=== PATIENT | female | born 1955 | race Caucasian/White ===

== ENCOUNTER 2017-09-26 10:37 | Inpatient (IN) | payer MEDICARE ==
[2017-09-26] MEDS ORDERED: Azithromycin IV(*) 500 MG in NS 0.9% 250 ML* 250 ML IVPB ONE (11:44)
[2017-09-26] MEDS ORDERED: cefTRIAXone(*) 1 GM in NS 0.9% 50 ML* 50 ML IVPB ONE (11:44)
[2017-09-26] MEDS ORDERED: NS 0.9% 1000 ML* 1,000 ML IV ONE (11:44)
[2017-09-26] MEDS ORDERED: Albuterol/Ipratropium NEB.SOL* Albuterol 2.5 MG/Ipratropium 0.5 MG 3 ML INH ONE (11:45)
[2017-09-26 12:03] LABS: Hematocrit 38 % (35-47); Hemoglobin 12.3 g/dl (12.0-16.0); Mean Corpuscular HGB Conc 32 g/dl (31-36); Mean Corpuscular Hemoglobin 29 pg (27-31); Mean Corpuscular Volume 90 fL (80-97); Mean Platelet Volume 8 um3 (7.4-10.4); Red Blood Count 4.27 10^6/ul (4.0-5.4); Red Cell Distribution Width 13 % (10.5-15); White Blood Count 8.8 10^3/ul (3.5-10.8)
[2017-09-26 12:09] LABS: Albumin 4.6 g/dL (3.2-5.2); BUN/Creatinine Ratio 21.1 (8-20); Calcium 9.6 mg/dL (8.6-10.3); EGFR African American 81.1 (>60); Globulin 3.4 g/dL (2-4); Magnesium 2.2 mg/dL (1.9-2.7); Potassium 3.8 mmol/L (3.5-5.0); Total Bilirubin 0.4 mg/dL (0.2-1.0)
[2017-09-26 12:10] LABS: Troponin I 0.01 ng/mL (<0.04)
--- NOTE | 2017-09-26 12:21 | RAD ---
INDICATION: Soreness of breath COPD exacerbation. COMPARISON: Comparison is made with a prior study from May 13, 2015. TECHNIQUE: Dual-energy PA and lateral views of the chest were obtained. FINDINGS: The heart is within normal limits in size. Mediastinal and hilar contours appear within normal limits. The lungs are hyperinflated and clear with flattening of the diaphragms. No pleural effusion is seen. IMPRESSION: FINDINGS SUGGESTIVE OF COPD, NO EVIDENCE FOR ACUTE FINDING.
[2017-09-26 13:00] LABS: TSH (Thyroid Stimulating Horm) 1.6 mcIU/mL (0.34-5.60)
--- NOTE | 2017-09-26 14:06 | ED ---
Kayla Slade Nilda, scribed for Helena Duncan MD on 09/26/17 at 1136 . Dizziness - HPI Summary HPI Summary: This patient is a 62 year old F presenting to [facility] accompanied by family with a chief complaint of sudden onset, constat dizziness (room spinning) that began earlier today. Pt reports lightheadedness yesterday. Symptoms aggravated by position change (lying down to sitting up) and alleviated by nothing. Patient reports cough, SOB, and frontal headache. Patient denies dysuria, fever, head trauma, unilateral weakness, and slurred speech. Per daughter, pt has similar symptoms when she has some sort of infection. Four years ago, pt had a kidney infection and presented with dizziness. When she was given amoxicillin all dizziness symptoms resolved. Pt states she is on home O2. PMHx includes COPD and vascular disease (stents in abd). - History Of Current Complaint Chief Complaint: EDDizziness Stated Complaint: DIZZY Time Seen by Provider: 09/26/17 11:00 Hx Obtained From: Patient, Family/Lead Military Analyst - daughter Onset/Duration: Still Present, Suddenly Timing: Constant Severity Currently: Moderate Character: Dizzy Aggravating Factor(s): Position Change, Supine To Erect Alleviating Factor(s): Nothing Associated Signs And Symptoms: Positive: Other: - cough, SOB, and frontal headache. Patient denies dysuria, fever, head trauma, unilateral weakness, and slurred speech - Allergies/Home Medications Allergies/Adverse Reactions: Allergies Allergy/AdvReac Type Severity Reaction Status Date / Time No Known Allergies Allergy Verified 09/06/17 08:45 Home Medications: Home Medications Rosuvastatin (NF) [Crestor (NF)] 10 mg PO DAILY 09/26/17 [History Confirmed ] PMH/Surg Hx/FS Hx/Imm Hx Endocrine/Hematology History: Reports: Hx Anticoagulant Therapy - HX OF DVT Denies: Hx Diabetes Cardiovascular History: Reports: Hx Hypertension, Other Cardiovascular Problems/ Disorders - heart murmur Denies: Hx Pacemaker/ICD Respiratory History: Reports: Hx Asthma, Hx Chronic Obstructive Pulmonary Disease (COPD), Other Respiratory Problems/Disorders - COLLAPSED LUNG 30 YRS AGO GI History: Reports: Other GI Disorders - bowel necrosis and surgery History: Reports: Other Problems/Disorders - recent UTI Musculoskeletal History: Reports: Other Musculoskeletal History - arthritis, degenerative disk in neck Sensory History: Reports: Hx Contacts or Glasses Denies: Hx Hearing Aid Opthamlomology History: Reports: Hx Contacts or Glasses Neurological History: Reports: Other Neuro Impairments/Disorders - tingling down left arm from arthritis Psychiatric History: Reports: Hx Anxiety, Hx Depression Denies: Hx Panic Disorder - Surgical History Surgery Procedure, Year, and Place: LT LEG SURGERY 2006, [place], recent bowel resection December 2013, - Immunization History Date of Tetanus Vaccine: Unkown Infectious Disease History: No Infectious Disease History: Denies: Traveled Outside the [place] in Last 30 Days - Family History Known Family History: Negative: Hypertension, Diabetes - Social History Alcohol Use: None Substance Use Type: Reports: None Substance Use Comment - Amount & Last Used: marijuana 2 days ago Smoking Status (MU): Former Smoker Type: Cigarettes Amount Used/How Often: 2 ppd Length of Time of Smoking/Using Tobacco: 40 Have You Smoked in the Last Year: No Review of Systems Negative: Fever Positive: Shortness Of Breath, Cough Negative: dysuria Neurological: Other - dizziness (room spinning and lightheaded); negative head trauma Positive: Headache - frontal. Negative: Weakness, Slurred Speech All Other Systems Reviewed And Are Negative: Yes Physical Exam - Summary Physical Exam Summary: General: Well appearing, no pain distress Skin: Warm, Skin Color Reflects Adequate Perfusion, Dry Eyes: EOMI, LYDIA ENT: Pharynx normal, TMs normal Neck: Supple, nontender Respiratory: CTA, breath sounds present, no rhonchi, no wheezes, no rales Cardiovascular: RRR, no murmur, no rub, no gallop Abdomen: Soft, nontender, Non-distended, no guarding, no rebound Bowel: Present Musculoskeletal: ABI, No edema Neuro: Sensory/motor intact, A&Ox3, CN intact 2-12 Psych: Affect/mood appropriate NIH: negative Triage Information Reviewed: Yes Vital Signs On Initial Exam: Initial Vitals Temp Pulse Resp BP Pulse Ox 97.6 F 74 18 129/98 97 09/26/17 10:40 09/26/17 10:40 09/26/17 10:40 09/26/17 10:40 09/26/17 10:40 Vital Signs Reviewed: Yes - [place] Coma Scale Coma Scale Total: 15 Diagnostics - Vital Signs Vital Signs Temp Pulse Resp BP Pulse Ox 09/26/17 10:40 97.6 F 74 18 129/98 97 - Laboratory Lab Results: Lab Results 09/26/17 09/26/17 Range/Units 11:36 11:36 WBC 8.8 (3.5-10.8) 10^3/ul RBC 4.27 (4.0-5.4) 10^6/ul Hgb 12.3 (12.0-16.0) g/dl Hct 38 (35-47) % MCV 90 (80-97) fL MCH 29 (27-31) pg MCHC 32 (31-36) g/dl RDW 13 (10.5-15) % Plt Count 235 (150-450) 10^3/ul MPV 8 (7.4-10.4) um3 Neut % (Auto) 66.6 (38-83) % Lymph % (Auto) 21.8 L (25-47) % [place] % (Auto) 8.3 (1-9) % Eos % (Auto) 2.5 (0-6) % Baso % (Auto) 0.8 (0-2) % Absolute Neuts (auto) 5.8 (1.5-7.7) 10^3/ul Absolute Lymphs (auto) 1.9 (1.0-4.8) 10^3/ul Absolute Monos (auto) 0.7 (0-0.8) 10^3/ul Absolute Eos (auto) 0.2 (0-0.6) 10^3/ul Absolute Basos (auto) 0.1 (0-0.2) 10^3/ul Absolute Nucleated RBC 0 10^3/ul Nucleated RBC % 0 Sodium 135 (133-145) mmol/L Potassium 3.8 (3.5-5.0) mmol/L Chloride 98 L (101-111) mmol/L Carbon Dioxide 32 (22-32) mmol/L Anion Gap 5 (2-11) mmol/L BUN 19 (6-24) mg/dL Creatinine 0.90 (0.51-0.95) mg/dL Est GFR ( Amer) 81.1 (>60) Est GFR (Non-Af Amer) 63.0 (>60) BUN/Creatinine Ratio 21.1 H (8-20) Glucose 89 (70-100) mg/dL Calcium 9.6 (8.6-10.3) mg/dL Magnesium 2.2 (1.9-2.7) mg/dL Total Bilirubin 0.40 (0.2-1.0) mg/dL AST 19 (13-39) U/L ALT 15 (7-52) U/L Alkaline Phosphatase 51 (34-104) U/L Troponin I 0.01 (<0.04) ng/mL Total Protein 8.0 (6.4-8.9) g/dL Albumin 4.6 (3.2-5.2) g/dL Globulin 3.4 (2-4) g/dL Albumin/Globulin Ratio 1.4 (1-3) TSH 1.60 (0.34-5.60) mcIU/mL Result Diagrams: 09/26/17 11:36 09/26/17 11:36 Lab Statement: Any lab studies that have been ordered have been reviewed, and results considered in the medical decision making process. - Radiology CXR Radiology Interpretation Completed By: Radiologist - CXR, per radiologist, reveals findings suggestive of COPD. No evidence for acute finding. ED physician has reviewed this radiology report and agrees. - EKG 1124 Cardiac Rate: NL EKG Rhythm: Sinus Rhythm - [address] Segment: Normal Ectopy: None EKG Interpretation: no STEMI, no acute changes. Re-Evaluation - Re-Evaluation First Eval Re-Evaluation Time: 13:42 Comment: Reviewed labs and plan for admission. Pt agreeable with this plan. Dizzy Course/Dx - Course Assessment/Plan: An EKG reveals NSR, 72 bpm, normal ST, no ectopy, no STEMI, no acute changes. CXR, per radiologist, reveals findings suggestive of COPD. No evidence for acute finding. ED physician has reviewed this radiology report and agrees. Pending CT Brain. [1350] Dr Rajput (hospitalist) accepts pt as admit. Given pts peripheral vascular disease history and no clear cut signs of infection as a cause for her vertigo case was discussed with hospitalist for obv - Diagnoses Provider Diagnoses: Vertigo - Provider Notifications Discussed Care Of Patient With: Fredy Rajput - Hospitalist Time Discussed With Above Provider: 13:50 Instructed by Provider To: Admit As Inpatient Discharge - Discharge Plan Condition: Stable Disposition: ADMITTED TO [facility] Referrals: Miguel Parmar MD [Primary Care Provider] - The documentation as recorded by the Kayla mcduffie Nilda accurately reflects the service I personally performed and the decisions made by me, Helena Duncan MD.
[2017-09-26 14:10] LABS: Budding Yeast Present (Absent); Urine Bacteria Absent (Absent); Urine Bilirubin Negative (Negative); Urine Glucose Negative (Negative); Urine Nitrite Negative (Negative)
--- NOTE | 2017-09-26 15:32 | RAD ---
INDICATION: Headache and vertigo. COMPARISON: Comparison is made with a prior CT of the brain from February 15, 2015. TECHNIQUE: Contiguous axial sections of the brain were obtained from the skull base to the vertex without contrast. FINDINGS: The ventricles, cisterns and sulci are within normal limits. No significant focal abnormality or mass effect is seen. There is no evidence for hemorrhage. No significant focal osseous abnormality is seen. The visualized portion of the paranasal sinuses and mastoid air cells appear clear. IMPRESSION: NO EVIDENCE FOR GROSS ACUTE INFARCT, MASS EFFECT OR HEMORRHAGE.
[2017-09-26] MEDS ORDERED: Albuterol HFA INHALER* 8 gm MDI INH PRN (15:41)
[2017-09-26] MEDS ORDERED: ALPRAZolam TAB* 0.25 MG PO PRN (15:41)
[2017-09-26] MEDS: Cyclobenzaprine TAB* 10 MG PO PRN ×2 (16:57→21:34)
[2017-09-26] MEDS: Gabapentin CAP(*) 100 MG PO SCH ×2 (16:57→21:35)
[2017-09-26] MEDS: oxyCODONE/Acetamin 5/325 MG* TAB PO PRN (16:57)
[2017-09-26] MEDS: PTO: Budesonide/Formote 80/4.5(NF) MDI INH SCH (20:03)
--- NOTE | 2017-09-26 20:28 | HP ---
HISTORY AND PHYSICAL: DATE OF ADMISSION: 09/26/17 ADMITTING PHYSICIAN: Fredy Rajput MD PRIMARY CARE PHYSICIAN: Dr. Parmar. CHIEF COMPLAINT: Vertigo, acute onset. HISTORY OF PRESENT ILLNESS: Linda Jiménez is a 62-year-old female with PMH as above who was sitting on her couch on the morning of admission when all of a sudden the room began to spin. She got very scared, did not feel safe standing up to see if she could ambulate. She has a history of vertiginous sensations, which have always been possible infections and has been usually resolved after getting a dose of amoxicillin; however, it has been a number of months since the last time this happened. She denies having any fevers. Did have some chills and then had some drenching sweats. She does deny any dysuria. She wears pads for urinary incontinence. She denies any cough or shortness of breath. The patient called her daughter to present to the emergency room. The patient still gets vertigo sensations on the car ride here, especially when stopping and starting in the car. The patient in the ED had a CT head, which was negative and a UA suspicious for possible infection, was started on ceftriaxone. She was afebrile, hemodynamically stable. She is being admitted for vertigo, rule out CVA. Performed Miami-Hallpike maneuver. Limited exam as the patient is very anxious with reclination. No nystagmus noted with head looking to the right side, but the patient is very anxious and appearing uncomfortable and nauseous, though did not vomit. Test was not repeated looking to the left. PAST MEDICAL HISTORY: 1. Hypertension. 2. COPD. 3. Peripheral vascular disease. 4. Chronic neck pain secondary to osteoarthritis. PAST SURGICAL HISTORY: Surgeries include for her peripheral vascular disease. Follows with Dr. Sibley of [facility]. MEDICATIONS: Include: 1. Aspirin 325 mg q.a.m. 2. Clopidogrel 75 mg q.a.m. 3. Flexeril 10 mg t.i.d. 4. Gabapentin 400 mg t.i.d. 5. Levothyroxine 50 mcg q.a.m. 6. Lisinopril 10 mg q.a.m. 7. Montelukast 10 mg q.h.s. 8. Oxycodone 5/325 tabs t.i.d. 9. Crestor 10 mg q.h.s. 10. Sertraline 200 mg q.h.s. 11. Spiriva 2 puffs q.a.m. 12. Symbicort 160/4.5 two puffs b.i.d. as needed. 13. Guaifenesin as needed. 14. Amoxicillin as needed. 15. Xanax 0.25 mg. ALLERGIES: No known drug allergies. FAMILY HISTORY: Noncontributory. SOCIAL HISTORY: Healthcare proxy is daughter, Yaima Jiménez, who is present at bedside. The patient smoked for 45 years, 2 to 3 packs a day, quit several years ago, not a current drinker. REVIEW OF SYSTEMS: Complete 14-point review of systems is negative except as per HPI. PHYSICAL EXAMINATION GENERAL: The patient is in no acute distress, sitting in the hospital bed. VITAL SIGNS: Blood pressure 125/67, satting 94% on room air, heart rate 75, temperature 97.6. HEENT: Normocephalic, atraumatic. Pupils equal, round, and reactive to light. Extraocular muscles are intact. NECK: Supple. No cervical lymphadenopathy. PULMONARY: Some slightly expiratory wheezing. No rhonchi or rales. CARDIOVASCULAR: Regular rate and rhythm. No murmurs, rubs, or gallops. ABDOMEN: Soft, nontender, nondistended. No guarding. No rebound. EXTREMITIES: Warm, well perfused. No peripheral edema. NEUROLOGIC: Cranial nerves II through XII grossly intact. Some dyssymmetry bilaterally with [id number]. [id number]-[id number] testing rather low but smooth. Rapid arm motions intact bilaterally. [place]-Hallpike test equivocal, no nystagmus seen, somewhat limited as the patient is very anxious and not able to be performed on the other side. Medical Asst strength intact. Sensation intact. Hip flexion intact. LABORATORY DATA: White count 8.8, hemoglobin 12.3, hematocrit 38, platelets 235,000. Sodium 135, potassium 3.8, chloride 98, carbon dioxide 32, BUN 19, creatinine 0.90, glucose 89, magnesium 2.2. Troponin 0.01. TSH 1.6. Urinalysis; 3+ leukocyte esterase, 3+ wbc's, 1+ rbc's, present yeast. IMAGING: Chest x-ray; no acute pulmonary process, but findings suggestive of COPD with hyperinflation, flattening of the diaphragms. CT of the brain; no evidence of gross acute infarct, mass effect, or hemorrhage. 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 The patient is afebrile with no leukocytosis. Does have a UA suspicious for urinary tract infection. We will continue ceftriaxone. She had a CT head, no evidence of cerebrovascular accident. Continue neuro checks every 6 hours. Consider brain MRI to rule out posterior circulation stroke given her vasculopathy. We will continue her aspirin, Plavix daily, control her blood pressure with home meds. For chronic obstructive pulmonary disease, continue inhalers. No signs of chronic obstructive pulmonary disease exacerbation, satting well on room air. For hypertension, continue her lisinopril 10 mg daily. We will check orthostatic vital signs. She can eat a heart healthy diet. She is being admitted to observation for vertigo. Medical proxy is daughter, Yaima Jiménez. [id number]/CPS #: [id number] [facility] HOSPITALIfeanyi
[2017-09-26] MEDS: ROSUVASTATIN 10 MG PO SCH (21:33)
[2017-09-26] MEDS: Sertraline* 100 MG TAB PO SCH (21:34)
[2017-09-27] MEDS: oxyCODONE/Acetamin 5/325 MG* TAB PO PRN ×3 (02:18→14:23)
[2017-09-27] MEDS: Levothyroxine TAB* 50 MCG TAB PO SCH (05:45)
[2017-09-27] MEDS: PTO: Budesonide/Formote 80/4.5(NF) MDI INH SCH ×2 (08:43→19:20)
[2017-09-27] MEDS: Tiotropium CAP.INH* CAP.INH/18 MCG (USE ORDER SET !) INH SCH (08:44)
[2017-09-27] MEDS: Montelukast Sodium TAB* 10 MG PO SCH (08:45)
[2017-09-27] MEDS: Aspirin EC TAB* 325 MG PO SCH (08:45)
[2017-09-27] MEDS: Clopidogrel TAB* 75 MG PO SCH (08:45)
[2017-09-27] MEDS: Gabapentin CAP(*) 100 MG PO SCH ×4 (08:45→20:55)
[2017-09-27] MEDS: Cyclobenzaprine TAB* 10 MG PO PRN ×2 (08:45→14:23)
[2017-09-27] MEDS: Lisinopril TAB* 10 MG PO SCH (08:45)
[2017-09-27] MEDS ORDERED: Spiriva Inhaler DEVICE* 1 EACH DEVICE INH ONE (09:00)
[2017-09-27] MEDS: cefTRIAXone VIAL(*) 1,000 MG in D5W 50 ML BAG* 50 ML IVPB SCH (13:27)
--- NOTE | 2017-09-27 14:48 | RAD ---
Indication: Stroke. Image sequences: Sagittal and axial T1, axial T2, FLAIR, diffusion and susceptibility weighted images of the brain were obtained. Motion artifact degrades the images. Ventricular structures are midline. No midline shift is noted. The extra-axial spaces are unremarkable. There is no evidence of intracranial mass or hemorrhage. No restriction of diffusion is noted. The left maxillary sinus is opacified. The right maxillary sinus is unremarkable. Mastoid air cells are grossly unremarkable. IMPRESSION: Opacified left maxillary sinus. Limited images of the brain demonstrates no acute changes with no restriction of diffusion.
--- NOTE | 2017-09-27 15:33 | PN ---
Subjective Date of Service: 09/27/17 Interval History: MRI Brain today with no e/o CVA. Walked with PT, did not feel safe to attempt stairs. Dizziness overall improving. Still with turning head quickly. Cough has gotten bit worse, trying but unable to bring anything up. Objective Active Medications: Albuterol (Ventolin Hfa Inhaler*) 2 puff INH Q4H PRN PRN Reason: SHORTNESS OF BREATH Alprazolam (Xanax Tab*) 0.25 mg PO Q6H PRN PRN Reason: ANXIETY Aspirin (Ecotrin Ec Tab*) 325 mg PO DAILY [facility] Last Admin: 09/27/17 08:45 Dose: 325 mg Budesonide/Formoterol Fumarate (Symbicort 80/4.5 (Nf)) 2 aer INH BID [facility] Last Admin: 09/27/17 08:43 Dose: 2 puff Clopidogrel Bisulfate (Plavix Tab*) 75 mg PO DAILY [facility] Last Admin: 09/27/17 08:45 Dose: 75 mg Cyclobenzaprine HCl (Flexeril Tab*) 10 mg PO TID PRN PRN Reason: SPASMS Last Admin: 09/27/17 14:23 Dose: 10 mg Gabapentin (Neurontin Cap(*)) 400 mg PO QID [facility] Last Admin: 09/27/17 13:26 Dose: 400 mg Ceftriaxone Sodium 1,000 mg/ (Dextrose) 50 mls @ 200 mls/hr IVPB Q24H [facility] Last Admin: 09/27/17 13:27 Dose: 200 mls/hr Levothyroxine Sodium (Synthroid Tab*) 50 mcg PO DAILY@0600 [facility] Last Admin: 09/27/17 05:45 Dose: 50 mcg Lisinopril (Prinivil Tab*) 10 mg PO DAILY [facility] Last Admin: 09/27/17 08:45 Dose: 10 mg Montelukast Sodium (Singulair Tab*) 10 mg PO DAILY [facility] Last Admin: 09/27/17 08:45 Dose: 10 mg Oxycodone/Acetaminophen (Percocet 5/325 Tab*) 1 tab PO TID PRN PRN Reason: PAIN Last Admin: 09/27/17 14:23 Dose: 1 tab Rosuvastatin Calcium (Crestor (Nf)) 10 mg PO BEDTIME [facility] PRN Reason: Protocol Last Admin: 09/26/17 21:33 Dose: 10 mg Sertraline HCl (Zoloft*) 200 mg PO BEDTIME [facility] Last Admin: 09/26/17 21:34 Dose: 200 mg Tiotropium [place] (Spiriva Cap.Inh*) 1 cap INH DAILY [facility] Last Admin: 09/27/17 08:44 Dose: 1 cap Vital Signs 09/26/17 09/26/17 09/26/17 15:59 16:00 16:42 Temperature 98.0 F Pulse Rate 76 77 Respiratory 20 20 Rate Blood Pressure 135/72 (mmHg) O2 Sat by Pulse 94 96 Oximetry 09/26/17 09/26/17 09/26/17 16:51 16:57 17:04 Temperature 98.0 F Pulse Rate 77 Respiratory 20 18 20 Rate Blood Pressure 135/72 (mmHg) O2 Sat by Pulse 96 Oximetry 09/26/17 09/26/17 09/26/17 18:36 19:45 20:00 Temperature 98.2 F Pulse Rate 84 84 Respiratory 18 16 16 Rate Blood Pressure 101/64 (mmHg) O2 Sat by Pulse 90 97 Oximetry 09/26/17 09/26/17 09/26/17 20:16 20:46 21:34 Temperature Pulse Rate 71 Respiratory 16 16 Rate Blood Pressure 100/46 (mmHg) O2 Sat by Pulse Oximetry 09/26/17 09/26/17 09/26/17 21:35 23:23 23:48 Temperature 97.5 F Pulse Rate 82 Respiratory 16 16 16 Rate Blood Pressure 115/63 (mmHg) O2 Sat by Pulse 94 Oximetry 09/27/17 09/27/17 09/27/17 02:18 03:59 05:49 Temperature 97.6 F Pulse Rate 76 Respiratory 18 18 16 Rate Blood Pressure 152/77 (mmHg) O2 Sat by Pulse 97 Oximetry 09/27/17 09/27/17 09/27/17 07:27 07:56 08:00 Temperature 98.1 F Pulse Rate 68 Respiratory 16 16 20 Rate Blood Pressure 107/68 (mmHg) O2 Sat by Pulse 96 Oximetry 09/27/17 09/27/17 09/27/17 08:45 08:46 10:49 Temperature Pulse Rate Respiratory 18 18 18 Rate Blood Pressure (mmHg) O2 Sat by Pulse Oximetry 09/27/17 09/27/17 09/27/17 10:50 11:15 13:26 Temperature 98.2 F Pulse Rate 86 Respiratory 18 16 18 Rate Blood Pressure 108/86 (mmHg) O2 Sat by Pulse 94 Oximetry 09/27/17 09/27/17 14:23 15:00 Temperature 97.7 F Pulse Rate 76 Respiratory 20 18 Rate Blood Pressure 142/75 (mmHg) O2 Sat by Pulse 94 Oximetry Oxygen Devices in Use Now: Nasal Cannula Appearance: NAD. Coughing on re-eval. Occasionally anxious. Eyes: No Scleral Icterus, PERRLA Ears/Nose/Mouth/Throat: NL Teeth, Lips, Gums, Mucous Membranes Moist Neck: NL Appearance and Movements; NL JVP Respiratory: - - no rales or wheezing. Cardiovascular: NL Sounds; No Murmurs; No JVD, RRR Abdominal: NL Sounds; No Tenderness; No Distention Extremities: No Edema, No Clubbing, Cyanosis Skin: No Rash or Ulcers Neurological: Alert and Oriented x 3, NL Sensation, NL Muscle Strength and Tone , - - anxious. Ch[place] Hallpike w/o nystagmus, head thrust negative. Result Diagrams: 09/26/17 11:36 09/26/17 11:36 Additional Lab and Data: Microbiology and Other Data: Microbiology 09/26/17 12:52 Urine Urine Culture - Preliminary Escherichia Coli Assess/Plan/Problems-Billing Assessment: 62 yo female PMH COPD, PVD (SMA) p/w acute vertigo. CTH and MRI brain w/o e/o stroke. Justyn Hallpike and head thrust negative. Vertigo overall improving though not yet safe for home per PT. CFTX for Ecoli UTI and potential COPD exacerbation (increased cough). - Patient Problems (1) Vertigo Current Visit: Yes Status: Acute Code(s): R42 - DIZZINESS AND GIDDINESS SNOMED Code(s): 046055940 Comment: Brain MRI and CTH negative for CVA Justyn Hallpike and head thrust negative. overall improving. still somewhat positional continue PT daily, placement if needed. lexus yadav trial (2) UTI (urinary tract infection) Current Visit: Yes Status: Acute Comment: Ecoli, f/u sensitivities. UA 3+ LE 3+ WBC Ceftriaxone empirically for now. (3) Hx of peripheral vascular disease Current Visit: No Status: Chronic Priority: Medium Code(s): Z86.79 - PERSONAL HISTORY OF OTHER DISEASES OF THE CIRCULATORY SYSTEM SNOMED Code(s): 960962924 Comment: continue aspirin, plavix (4) History of COPD Current Visit: No Status: Chronic Priority: Medium Code(s): Z87.09 - PERSONAL HISTORY OF OTHER DISEASES OF THE RESPIRATORY SYSTEM SNOMED Code(s): 625974763 Comment: continue symbicort, duonebs q4h prn, singular, singular not currently bronchospastic but with increased cough. Difficulty with expectorating. Mucinex added. (5) History of chronic pain Current Visit: No Status: Chronic Priority: Medium Code(s): Z87.898 - PERSONAL HISTORY OF OTHER SPECIFIED CONDITIONS SNOMED Code(s): 218201197 Comment: continue home gabapentin 400mg TID, flexeril 10mg TID, percoset 1 tab TID prn cervical pain (6) History of depression Current Visit: No Status: Chronic Priority: Medium Code(s): Z86.59 - PERSONAL HISTORY OF OTHER MENTAL AND BEHAVIORAL DISORDERS SNOMED Code(s): 764854514 Comment: continue home zoloft 200mg qhs (7) History of hypertension Current Visit: No Status: Chronic Priority: Medium Code(s): Z86.79 - PERSONAL HISTORY OF OTHER DISEASES OF THE CIRCULATORY SYSTEM SNOMED Code(s): 561419421 Comment: continue home lisinopril 10mg daily. (8) Hx of degenerative disc disease Current Visit: No Status: Chronic Priority: Medium Code(s): Z87.39 - PERSONAL HISTORY OF DISEASES OF THE MS SYS AND CONN TISS SNOMED Code(s): 740664110 Comment: pain meds as above. Status and Disposition: medicine, changed to inpatient as PT did not feel safe for her home environment yet. Attending: Fredy Rajput
[2017-09-27] MEDS: ROSUVASTATIN 10 MG PO SCH (20:54)
[2017-09-27] MEDS: Sertraline* 100 MG TAB PO SCH (20:54)
[2017-09-27] MEDS: guaiFENesin ER TAB 600 MG PO SCH (20:56)
[2017-09-28] MEDS: Levothyroxine TAB* 50 MCG TAB PO SCH (05:55)
[2017-09-28] MEDS: Gabapentin CAP(*) 100 MG PO SCH ×2 (08:53→13:48)
[2017-09-28] MEDS: guaiFENesin ER TAB 600 MG PO SCH (08:53)
[2017-09-28] MEDS: Aspirin EC TAB* 325 MG PO SCH (08:54)
[2017-09-28] MEDS: Lisinopril TAB* 10 MG PO SCH (08:54)
[2017-09-28] MEDS: Montelukast Sodium TAB* 10 MG PO SCH (08:54)
[2017-09-28] MEDS: Clopidogrel TAB* 75 MG PO SCH (09:01)
[2017-09-28 11:47] VITALS: BP 138/107
[2017-09-28] MEDS: PTO: Budesonide/Formote 80/4.5(NF) MDI INH SCH (13:22)
[2017-09-28] MEDS: Tiotropium CAP.INH* CAP.INH/18 MCG (USE ORDER SET !) INH SCH (13:23)
[2017-09-28] MEDS: cefTRIAXone VIAL(*) 1,000 MG in D5W 50 ML BAG* 50 ML IVPB SCH (13:48)
[2017-09-28] MEDS ORDERED: Meclizine TAB* 12.5 MG PO SCH (14:00)
--- NOTE | 2017-09-29 07:07 | DS ---
DISCHARGE SUMMARY: DATE OF ADMISSION: 09/26/17 DATE OF DISCHARGE: 09/28/17 ADMITTING PROVIDER: Fredy Rajput MD ATTENDING PHYSICIAN: Fredy Rajput MD PRIMARY CARE PHYSICIAN: Dr. Miguel Parmar. CHIEF COMPLAINT: Vertigo. PRINCIPAL DIAGNOSIS: Urinary tract infection. PAST MEDICAL HISTORY: Hypertension, COPD, peripheral vascular disease, chronic neck pain secondary to osteoarthritis, cervical disk disease. HISTORY OF PRESENT ILLNESS AND HOSPITAL COURSE: Linda Jiménez is a 62-year-old female with PMH as above, who was sitting on couch on the morning of admission when suddenly the room started to spin. She got very scared, did not feel safe standing up. She does have an episode the day prior that was very brief and then passed; however, she called her daughter and presented to the emergency room. She does have a history of these vertiginous sensations whenever she has a urinary tract infection, usually takes a dose of amoxicillin and improves. She did have some chills and drenching sweats at home. Denies any dysuria. She wears pads for urinary incontinence at baseline. Denies shortness of breath or cough. In the emergency room, she had a CT of the head, which was negative and the UA was suspicious for UTI, started her on ceftriaxone. She was afebrile without any leukocytosis. Justyn-Hallpike testing was equivalent in the ED and negative again on retesting on hospital day #2 as initially the patient was very anxious. She has physical therapy ordered, worked with her on hospital day #2 and even though vertigo had somewhat improved, she was taking short steps with some anxiety and had some sensations of shortness of breath and pressure in her head and stairs were not attempted, did not feel safer at home, where she lives on the second floor requiring 2 flight of stairs at the landing. The patient had a brain MRI given her vasculopathy on hospital day#2, which was negative for any signs of ischemia. Urine culture eventually resulted in E. coli, sensitive to ceftriaxone, Cipro, and Bactrim. She will be discharged home on cefdinir for completion of her course of antibiotics. This provider walked the patient on hospital day #3, the patient initially felt again head pressure, was anxious upon retesting with nurse and then again with her provider. The patient was able to ambulate on the unit including up and down a flight of stairs without sensation of vertigo, shortness of breath, or unsteadiness on feet. She has been discharged with close follow up with Dr. Parmra to be seen by next week at the latest. She complained of a cough that was difficult to bring up any sputum on the night of admission and was given some Mucinex with some improvement. DISCHARGE MEDICATIONS: Include: 1. Cefdinir 300 mg p.o. b.i.d. for 5 days. 2. Mucinex 600 mg tabs p.o. b.i.d. 3. Spiriva 1 capsule inhaled daily. 4. Sertraline 200 mg p.o. q.h.s. 5. Crestor 10 mg p.o. daily. 6. Percocet 1 tab p.o. t.i.d. p.r.n. 7. Singulair 10 mg daily. 8. Lisinopril 10 mg daily. 9. Levothyroxine 50 mcg p.o. daily. 10. Gabapentin 400 mg p.o. q.i.d. 11. Flexeril 10 mg t.i.d. p.r.n. 12. Plavix 75 mg p.o. daily. 13. Symbicort inhaled b.i.d. 14. Aspirin 325 mg p.o. daily. 15. Xanax 0.25 to 0.5 mg p.o. q.6 hours p.r.n. for anxiety. 16. Albuterol MDI inhaler 2 puffs inhaled q.4 hours p.r.n. for COPD and shortness of breath. 17. Meclizine 25 mg p.o. q.8 hours p.r.n. for vertigo 10 tabs. DISCHARGE DIET: No restrictions. DISCHARGE ACTIVITY LEVEL: No restrictions. FOLLOW UP: Please follow up with Dr. Miguel Parmar within 3 to 5 days of discharge for followup of UTI and vertigo-like sensations. TIME SPENT: Time spent on this discharge was 35 minutes. [id number] #: [id number]
[2017-09-29] MEDS ORDERED: cefTRIAXone* 1 GM in NS 0.9% 50 ML BAG IVPB SCH (13:30)
[2017-09-30] MEDS ORDERED: cefTRIAXone VIAL(*) 1,000 MG in D5W 50 ML BAG* 50 ML IVPB SCH (13:30)
== END 2017-09-28 13:30 | disposition home or self-care (01) | DRG 690 ==
LOC: ED 10:37 → SSU 15:05 → OBSVTOIN 15:27 → MED 09-27 15:00
PROVIDERS: ADMIT Internal Medicine; ATTEND Internal Medicine
DX: N39.0 Urinary tract infection, site not specified (principal); B96.20 Unspecified Escherichia coli [E. coli] as the cause of diseases classified elsewhere; J44.9 Chronic obstructive pulmonary disease, unspecified; F12.90 Cannabis use, unspecified, uncomplicated; F32.9 Major depressive disorder, single episode, unspecified; F41.9 Anxiety disorder, unspecified; I10 Essential (primary) hypertension; M50.30 Other cervical disc degeneration, unspecified cervical region; M19.042 Primary osteoarthritis, left hand; R40.2412 Glasgow coma scale score 13-15, at arrival to emergency department; G89.29 Other chronic pain; I73.9 Peripheral vascular disease, unspecified; M47.9 Spondylosis, unspecified; Z79.82 Long term (current) use of aspirin; Z86.718 Personal history of other venous thrombosis and embolism; Z87.891 Personal history of nicotine dependence; Z79.02 Long term (current) use of antithrombotics/antiplatelets
CPT/HCPCS: 36415; 70450; 70551; 71020; 80053; 81003; 81015; 83735; 84443; 84484; 85025; 87077; 87086; 87186; 93005; 94640; 94760; A9270-GY; G0378; G8978-GP-CI; G8979-GP-CH; G8980-GP-CH; J0456; J0696

== ENCOUNTER 2017-12-02 19:53 | Inpatient (IN) | payer MEDICARE ==
[2017-12-02] MEDS ORDERED: NS 0.9% 1000 ML*IV.FLUID IV ONE (20:59)
[2017-12-02] MEDS ORDERED: Vancomycin(*) 1,000 MG in NS 0.9% 250 ML* 250 ML IVPB ONE (21:01)
[2017-12-02] MEDS ORDERED: cefTRIAXone(*) 2 GM in NS 0.9% 100 ML* 100 ML IVPB ONE (21:02)
[2017-12-02] MEDS ORDERED: Acetaminophen TAB* 325 MG PO ONE (21:05)
[2017-12-02 21:42] LABS: ABS Basophils 0 10^3/ul (0-0.2); ABS Eosinophils 0 10^3/ul (0-0.6); ABS Lymphocytes 0.7 10^3/ul (1.0-4.8); ABS Monocytes 0.6 10^3/ul (0-0.8); ABS Neutrophils 8.5 10^3/ul (1.5-7.7); ABS Nucleated RBC 0 10^3/ul; Eosinophil % 0.2 % (0-6); Hematocrit 35 % (35-47); Hemoglobin 11.8 g/dl (12.0-16.0); Lymphocyte % 7.3 % (25-47); Mean Corpuscular HGB Conc 33 g/dl (31-36); Mean Corpuscular Hemoglobin 30 pg (27-31); Mean Corpuscular Volume 90 fL (80-97); Mean Platelet Volume 8 um3 (7.4-10.4); Nucleated Red Blood Cells % 0; Platelet Count 186 10^3/ul (150-450); Red Blood Count 3.93 10^6/ul (4.0-5.4); Red Cell Distribution Width 13 % (10.5-15); White Blood Count 9.8 10^3/ul (3.5-10.8)
--- NOTE | 2017-12-02 21:48 | RAD ---
INDICATION: Altered mental status COMPARISON: Similar CT of the brain dated September 26, 2017 TECHNIQUE: Contiguous axial sections of the brain were obtained from the skull base to the vertex without contrast. FINDINGS: The ventricles, cisterns and sulci are within normal limits. The bettencourt-white matter differentiation is adequately maintained and there is no sulcal effacement. No significant focal abnormality or mass effect is present. Again seen is linear density along the inferior margin of the cerebellum unchanged in the prior CT examination. There is no evidence for intracranial hemorrhage. No significant focal osseous abnormality is present. The visualized portion of the paranasal sinuses appear clear. The mastoid air cells are well aerated bilaterally. IMPRESSION: No acute intracranial abnormality with no significant change since September 26, 2017 CT of the brain.
--- NOTE | 2017-12-02 21:50 | RAD ---
INDICATION: Fever and altered mental status COMPARISON: Chest x-ray dated September 26, 2017 TECHNIQUE: Single AP portable view of the chest was obtained. FINDINGS: Image quality is compromised due to the relative inferiority of a portable chest x-ray. The heart and mediastinum exhibit normal size and contour. The lungs are grossly clear. There is no evidence of a large pleural effusion. Visualized bones are normal for the patient's age. IMPRESSION: No radiographic evidence for acute cardiopulmonary abnormality on this portable chest x-ray.
[2017-12-02 21:57] LABS: EGFR Non-African American 47.5 (>60); INR 0.94 (0.77-1.02)
[2017-12-02 23:11] LABS: Urine Appearance Cloudy; Urine Blood Negative (Negative); Urine Color Yellow; Urine Ketones Negative (Negative); Urine Protein Negative (Negative); Urine Specific Gravity 1.016 (1.010-1.030); Urine Urobilinogen Negative (Negative)
--- NOTE | 2017-12-03 00:20 | ED ---
Julian Slade Tiffany, scribed for Emmanuel Mejia MD on 12/02/17 at 2132 . Altered Mental Status - HPI Summary HPI Summary: The patient is a 62 year old F BIBA accompanied by daughter with a chief complaint of altered mental status since three hours ago. Symptoms aggravated by nothing. Symptoms alleviated by nothing. Patient reports inability to ambulate and cough. Per patients daughter, patient was normal at 16:00 today but altered mental status at 18:00 today. Patient has history of COPD. - History Of Current Complaint Chief Complaint: EDAltMentalStatus Stated Complaint: AMS Time Seen by Provider: 12/02/17 20:39 Hx Obtained From: Patient, Family/Dental Receptionist - Daughter Onset/Duration: Still Present, Suddenly Aggravating Factor(s): Nothing Alleviating Factor(s): Nothing - Allergies/Home Medications Allergies/Adverse Reactions: Allergies Allergy/AdvReac Type Severity Reaction Status Date / Time No Known Allergies Allergy Verified 11/07/17 08:40 PMH/Surg Hx/FS Hx/Imm Hx Previously Healthy: No Endocrine/Hematology History: Reports: Hx Anticoagulant Therapy - HX OF DVT, Hx Thyroid Disease - HYPO Denies: Hx Diabetes Cardiovascular History: Reports: Hx Deep Vein Thrombosis, Hx Hypercholesterolemia, Hx Hypertension, Other Cardiovascular Problems/Disorders - VASCULAR DISEASE ON HER LEGS AND ABD Denies: Hx Pacemaker/ICD Respiratory History: Reports: Hx Asthma, Hx Chronic Obstructive Pulmonary Disease (COPD), Hx Seasonal Allergies, Other Respiratory Problems/Disorders - COLLAPSED LUNG 30 YRS AGO GI History: Reports: Other GI Disorders - bowel necrosis and surgery History: Reports: Other Problems/Disorders - recent UTI Musculoskeletal History: Reports: Other Musculoskeletal History - arthritis, degenerative disk in neck, R SHOULDER PAIN Sensory History: Reports: Hx Contacts or Glasses Denies: Hx Hearing Aid - [facility]aml[facility] History: Reports: Hx Contacts or Glasses Neurological History: Reports: Other Neuro Impairments/Disorders - tingling down left arm from arthritis--not now Psychiatric History: Reports: Hx Anxiety, Hx Depression Denies: Hx Panic Disorder - Surgical History Surgery Procedure, Year, and Place: LT LEG SURGERY 2006, [facility] 4[facility]11[facility] [place], recent bowel resection December 2013, R LEG--[place] - Immunization History Date of Tetanus Vaccine: Unkown Infectious Disease History: No Infectious Disease History: Reports: Hx Tuberculosis - 10 YEARS Denies: Traveled Outside the [place] in Last 30 Days - Family History Known Family History: Negative: Hypertension, Diabetes - Social History Alcohol Use: None Hx Substance Use: Yes Substance Use Type: Reports: None, Marijuana Hx Tobacco Use: Yes Smoking Status (MU): Former Smoker Type: Cigarettes Amount Used/How Often: 2 ppd Length of Time of Smoking/Using Tobacco: 40 Have You Smoked in the Last Year: No Review of Systems Positive: Other - inability to ambulate Positive: Cough Neurological: Other - Altered mental status All Other Systems Reviewed And Are Negative: Yes Physical Exam - Summary Physical Exam Summary: General: temperature is 104F Skin: warm, color reflects adequate perfusion, dry Head: normal Eyes: EOMI, LYDIA ENT: normal Neck: supple, nontender Respiratory: CTA, breath sounds present Cardiovascular: tachycardia Abdomen: soft, nontender Bowel: present Musculoskeletal: normal, strength/ROM intact Neurological: confused, alert and oriented to address and her own name but not hospital name Psychological: mild dysthymia Triage Information Reviewed: Yes Vital Signs On Initial Exam: Initial Vitals Temp Pulse Resp BP Pulse Ox 98.7 F 112 19 128/73 100 12/02/17 19:54 12/02/17 19:54 12/02/17 19:54 12/02/17 19:54 12/02/17 19:54 Vital Signs Reviewed: Yes Diagnostics - Vital Signs Vital Signs Temp Pulse Resp BP Pulse Ox 12/02/17 19:54 98.7 F 112 19 128/73 100 - Laboratory Lab Results: Lab Results 12/02/17 12/02/17 12/02/17 Range/Units 21:32 21:32 21:32 WBC 9.8 (3.5-10.8) 10^3/ul RBC 3.93 L (4.0-5.4) 10^6/ul Hgb 11.8 L (12.0-16.0) g/dl Hct 35 (35-47) % MCV 90 (80-97) fL MCH 30 (27-31) pg MCHC 33 (31-36) g/dl RDW 13 (10.5-15) % Plt Count 186 (150-450) 10^3/ul MPV 8 (7.4-10.4) um3 Neut % (Auto) 85.9 H (38-83) % Lymph % (Auto) 7.3 L (25-47) % [place] % (Auto) 6.4 (1-9) % Eos % (Auto) 0.2 (0-6) % Baso % (Auto) 0.2 (0-2) % Absolute Neuts (auto) 8.5 H (1.5-7.7) 10^3/ul Absolute Lymphs (auto) 0.7 L (1.0-4.8) 10^3/ul Absolute Monos (auto) 0.6 (0-0.8) 10^3/ul Absolute Eos (auto) 0 (0-0.6) 10^3/ul Absolute Basos (auto) 0 (0-0.2) 10^3/ul Absolute Nucleated RBC 0 10^3/ul Nucleated RBC % 0 INR (Anticoag Therapy) 0.94 (0.77-1.02) APTT 29.7 (26.0-36.3) seconds Patient Temperature ABG pH (7.35-7.45) ABG pH (Temp Correct) ABG pCO2 (35-45) mmHg ABG pCO2 (Temp Corrct ABG pO2 (80-100) mmHg ABG pO2 (Temp Correct ABG HCO3 (19-31) mmol/L ABG O2 Saturation (95-98) % ABG Base Excess (-2.0-2.0) Respiration Rate O2 Delivery Device Ventilator Type Vent Mode FiO2 Inspiratory Time PEEP Pressure Support Pressure Control EPAP IPAP BiPAP Sodium 130 L (133-145) mmol/L Potassium 3.9 (3.5-5.0) mmol/L Chloride 96 L (101-111) mmol/L Carbon Dioxide 28 (22-32) mmol/L Anion Gap 6 (2-11) mmol/L BUN 21 (6-24) mg/dL Creatinine 1.15 H (0.51-0.95) mg/dL Est GFR ( Amer) 61.1 (>60) Est GFR (Non-Af Amer) 47.5 (>60) BUN/Creatinine Ratio 18.3 (8-20) Glucose 112 H (70-100) mg/dL Lactic Acid (0.5-2.0) mmol/L Calcium 9.3 (8.6-10.3) mg/dL Total Bilirubin 0.40 (0.2-1.0) mg/dL AST 19 (13-39) U/L ALT 15 (7-52) U/L Alkaline Phosphatase 48 (34-104) U/L Total Creatine Kinase 119 (10-223) U/L Troponin I 0.01 (<0.04) ng/mL C-Reactive Protein 37.34 H (< 5.00) mg/L Total Protein 7.4 (6.4-8.9) g/dL Albumin 4.3 (3.2-5.2) g/dL Globulin 3.1 (2-4) g/dL Albumin/Globulin Ratio 1.4 (1-3) Urine Color Urine Appearance Urine pH (5-9) Ur Specific [place] (1.010-1.030) Urine Protein (Negative) Urine Ketones (Negative) Urine Blood (Negative) Urine Nitrate (Negative) Urine Bilirubin (Negative) Urine Urobilinogen (Negative) Ur Leukocyte Esterase (Negative) Urine WBC (Auto) (Absent) Urine RBC (Auto) (Absent) Ur Squamous Epith Cells (Absent) Urine Bacteria (Absent) Urine Glucose (Negative) Urine Opiates Screen (None Detect) Ur Barbiturates Screen (None Detect) Ur Phencyclidine Scrn (None Detect) Ur Amphetamines Screen (None Detect) U Benzodiazepines Scrn (None Detect) Urine Cocaine Screen (None Detect) U Cannabinoids Screen (None Detect) Influenza A (Rapid) (Negative) Influenza B (Rapid) (Negative) 12/02/17 12/02/17 12/02/17 Range/Units 21:32 21:40 22:00 WBC (3.5-10.8) 10^3/ul RBC (4.0-5.4) 10^6/ul Hgb (12.0-16.0) g/dl Hct (35-47) % MCV (80-97) fL MCH (27-31) pg MCHC (31-36) g/dl RDW (10.5-15) % Plt Count (150-450) 10^3/ul MPV (7.4-10.4) um3 Neut % (Auto) (38-83) % Lymph % (Auto) (25-47) % [place] % (Auto) (1-9) % Eos % (Auto) (0-6) % Baso % (Auto) (0-2) % Absolute Neuts (auto) (1.5-7.7) 10^3/ul Absolute Lymphs (auto) (1.0-4.8) 10^3/ul Absolute Monos (auto) (0-0.8) 10^3/ul Absolute Eos (auto) (0-0.6) 10^3/ul Absolute Basos (auto) (0-0.2) 10^3/ul Absolute Nucleated RBC 10^3/ul Nucleated RBC % INR (Anticoag Therapy) (0.77-1.02) APTT (26.0-36.3) seconds Patient Temperature Not Reportable ABG pH 7.38 (7.35-7.45) ABG pH (Temp Correct) Not Reportable ABG pCO2 45 (35-45) mmHg ABG pCO2 (Temp Corrct Not Reportable ABG pO2 151 H (80-100) mmHg ABG pO2 (Temp Correct Not Reportable ABG HCO3 25.8 (19-31) mmol/L ABG O2 Saturation 96.2 (95-98) % ABG Base Excess 1.1 (-2.0-2.0) Respiration Rate Not Reportable O2 Delivery Device non rebreather Ventilator Type Not Reportable Vent Mode Not Reportable FiO2 100 Inspiratory Time Not Reportable PEEP Not Reportable Pressure Support Not Reportable Pressure Control Not Reportable EPAP Not Reportable IPAP Not Reportable BiPAP Not Reportable Sodium (133-145) mmol/L Potassium (3.5-5.0) mmol/L Chloride (101-111) mmol/L Carbon Dioxide (22-32) mmol/L Anion Gap (2-11) mmol/L BUN (6-24) mg/dL Creatinine (0.51-0.95) mg/dL Est GFR ( Amer) (>60) Est GFR (Non-Af Amer) (>60) BUN/Creatinine Ratio (8-20) Glucose (70-100) mg/dL Lactic Acid 0.6 (0.5-2.0) mmol/L Calcium (8.6-10.3) mg/dL Total Bilirubin (0.2-1.0) mg/dL AST (13-39) U/L ALT (7-52) U/L Alkaline Phosphatase (34-104) U/L Total Creatine Kinase (10-223) U/L Troponin I (<0.04) ng/mL C-Reactive Protein (< 5.00) mg/L Total Protein (6.4-8.9) g/dL Albumin (3.2-5.2) g/dL Globulin (2-4) g/dL Albumin/Globulin Ratio (1-3) Urine Color Urine Appearance Urine pH (5-9) Ur Specific [place] (1.010-1.030) Urine Protein (Negative) Urine Ketones (Negative) Urine Blood (Negative) Urine Nitrate (Negative) Urine Bilirubin (Negative) Urine Urobilinogen (Negative) Ur Leukocyte Esterase (Negative) Urine WBC (Auto) (Absent) Urine RBC (Auto) (Absent) Ur Squamous Epith Cells (Absent) Urine Bacteria (Absent) Urine Glucose (Negative) Urine Opiates Screen (None Detect) Ur Barbiturates Screen (None Detect) Ur Phencyclidine Scrn (None Detect) Ur Amphetamines Screen (None Detect) U Benzodiazepines Scrn (None Detect) Urine Cocaine Screen (None Detect) U Cannabinoids Screen (None Detect) Influenza A (Rapid) Negative (Negative) Influenza B (Rapid) Negative (Negative) 12/02/17 12/02/17 Range/Units 22:43 22:43 WBC (3.5-10.8) 10^3/ul RBC (4.0-5.4) 10^6/ul Hgb (12.0-16.0) g/dl Hct (35-47) % MCV (80-97) fL MCH (27-31) pg MCHC (31-36) g/dl RDW (10.5-15) % Plt Count (150-450) 10^3/ul MPV (7.4-10.4) um3 Neut % (Auto) (38-83) % Lymph % (Auto) (25-47) % [place] % (Auto) (1-9) % Eos % (Auto) (0-6) % Baso % (Auto) (0-2) % Absolute Neuts (auto) (1.5-7.7) 10^3/ul Absolute Lymphs (auto) (1.0-4.8) 10^3/ul Absolute Monos (auto) (0-0.8) 10^3/ul Absolute Eos (auto) (0-0.6) 10^3/ul Absolute Basos (auto) (0-0.2) 10^3/ul Absolute Nucleated RBC 10^3/ul Nucleated RBC % INR (Anticoag Therapy) (0.77-1.02) APTT (26.0-36.3) seconds Patient Temperature ABG pH (7.35-7.45) ABG pH (Temp Correct) ABG pCO2 (35-45) mmHg ABG pCO2 (Temp Corrct ABG pO2 (80-100) mmHg ABG pO2 (Temp Correct ABG HCO3 (19-31) mmol/L ABG O2 Saturation (95-98) % ABG Base Excess (-2.0-2.0) Respiration Rate O2 Delivery Device Ventilator Type Vent Mode FiO2 Inspiratory Time PEEP Pressure Support Pressure Control EPAP IPAP BiPAP Sodium (133-145) mmol/L Potassium (3.5-5.0) mmol/L Chloride (101-111) mmol/L Carbon Dioxide (22-32) mmol/L Anion Gap (2-11) mmol/L BUN (6-24) mg/dL Creatinine (0.51-0.95) mg/dL Est GFR ( Amer) (>60) Est GFR (Non-Af Amer) (>60) BUN/Creatinine Ratio (8-20) Glucose (70-100) mg/dL Lactic Acid (0.5-2.0) mmol/L Calcium (8.6-10.3) mg/dL Total Bilirubin (0.2-1.0) mg/dL AST (13-39) U/L ALT (7-52) U/L Alkaline Phosphatase (34-104) U/L Total Creatine Kinase (10-223) U/L Troponin I (<0.04) ng/mL C-Reactive Protein (< 5.00) mg/L Total Protein (6.4-8.9) g/dL Albumin (3.2-5.2) g/dL Globulin (2-4) g/dL Albumin/Globulin Ratio (1-3) Urine Color Yellow Urine Appearance Cloudy Urine pH 5.0 (5-9) Ur Specific [place] 1.016 (1.010-1.030) Urine Protein Negative (Negative) Urine Ketones Negative (Negative) Urine Blood Negative (Negative) Urine Nitrate Negative (Negative) Urine Bilirubin Negative (Negative) Urine Urobilinogen Negative (Negative) Ur Leukocyte Esterase Trace H (Negative) Urine WBC (Auto) 2+(11-20/hpf) H (Absent) Urine RBC (Auto) Absent (Absent) Ur Squamous Epith Cells Present H (Absent) Urine Bacteria Absent (Absent) Urine Glucose Negative (Negative) Urine Opiates Screen Presumptive positive H (None Detect) Ur Barbiturates Screen None detected (None Detect) Ur Phencyclidine Scrn None detected (None Detect) Ur Amphetamines Screen None detected (None Detect) U Benzodiazepines Scrn Presumptive positive H (None Detect) Urine Cocaine Screen None detected (None Detect) U Cannabinoids Screen None detected (None Detect) Influenza A (Rapid) (Negative) Influenza B (Rapid) (Negative) Result Diagrams: 12/02/17 21:32 12/02/17 21:32 Lab Statement: Any lab studies that have been ordered have been reviewed, and results considered in the medical decision making process. - Radiology CXR Radiology Interpretation Completed By: Radiologist - No radiographic evidence for acute cardiopulmonary abnormality on this portable chest x-ray. ED physician has reviewed this radiology report. - CT Brain CT Interpretation Completed By: Radiologist - No acute intracranial abnormality with no significant change since September 26, 2017 CT of the brain. ED physician has reviewed this radiology report. - EKG 21:12 Cardiac Rate: NL EKG Rhythm: Sinus Rhythm - 102 BPM EKG Interpretation: Normal axis. Normal interval. No ischemic changes Altered Mental Statu Course/Dx - Course Course Of Treatment: 62 year old Female with PMHX of multiple medical problems. BIBA because she became cofused at home that was obseved by her daughter. Pt was found to have temp of 100.8 temporal. Pt was had mild dysarthria, However she has missing teeth and no cristobal denture. Pt was alert and orineted, However she did not know the name of the hospital. pt's urine positive for benzo and opiates. U/A C/W UTI. Pt admitted to the hospitalist. rest of the neuro exam was intact. Pt had no Lukocytosis. Pt treated wmpirically with rRocephin and Vancomycion== - Diagnoses Discharge Diagnoses: Urinary tract infection, Confusion - Provider Notifications Discussed Care Of Patient With: Molly Capone Time Discussed With Above Provider: 23:59 Instructed by Provider To: Other - Dr. Capone (hospitalist) agrees to admit the patient. Discharge - Discharge Plan Condition: Fair Disposition: ADMITTED TO [facility] Discharge Disposition Comment: Patient admitted to hospitalist, Dr. Capone. Referrals: Miguel Parmar MD [Primary Care Provider] - The documentation as recorded by the Julian mcduffie Tiffany accurately reflects the service I personally performed and the decisions made by , Emmanuel Mejia MD.
[2017-12-03] MEDS ORDERED: Acetaminophen TAB* 325 MG PO PRN (00:40)
[2017-12-03] MEDS ORDERED: Ondansetron INJ* 2 MG/ML VIAL IV PRN (00:40)
[2017-12-03] MEDS ORDERED: NS 0.9% 1000 ML* 1,000 ML IV SCH (00:45)
[2017-12-03] MEDS ORDERED: Cyclobenzaprine TAB* 10 MG PO PRN (00:48)
[2017-12-03] MEDS ORDERED: Iodixanol* (CONTRAST) 320 MG/ML 100 ML SDV IV ONE (00:53)
[2017-12-03] MEDS: Albuterol/Ipratropium NEB.SOL* Albuterol 2.5 MG/Ipratropium 0.5 MG 3 ML INH SCH ×6 (01:40→20:12)
[2017-12-03] MEDS: Azithromycin IV(*) 500 MG in NS 0.9% 250 ML* 250 ML IVPB SCH (02:28)
[2017-12-03 03:39] LABS: ABS Basophils 0 10^3/ul (0-0.2); ABS Eosinophils 0 10^3/ul (0-0.6); ABS Lymphocytes 1.4 10^3/ul (1.0-4.8); ABS Monocytes 0.5 10^3/ul (0-0.8); ABS Neutrophils 5.3 10^3/ul (1.5-7.7); ABS Nucleated RBC 0 10^3/ul; Eosinophil % 0.2 % (0-6); Hematocrit 34 % (35-47); Hemoglobin 11.1 g/dl (12.0-16.0); Lymphocyte % 19.2 % (25-47); Mean Corpuscular HGB Conc 33 g/dl (31-36); Mean Corpuscular Hemoglobin 30 pg (27-31); Mean Corpuscular Volume 91 fL (80-97); Mean Platelet Volume 8 um3 (7.4-10.4); Nucleated Red Blood Cells % 0; Platelet Count 160 10^3/ul (150-450); Red Blood Count 3.74 10^6/ul (4.0-5.4); Red Cell Distribution Width 13 % (10.5-15); White Blood Count 7.3 10^3/ul (3.5-10.8)
--- NOTE | 2017-12-03 03:47 | HP ---
CC: Dr. Parmar * HISTORY AND PHYSICAL: DATE OF ADMISSION: 12/03/17 ATTENDING PHYSICIAN WHILE IN THE HOSPITAL: Molly Capone DO * (report dictated by Jorden Evans NP). CHIEF COMPLAINT: Altered mental status. HISTORY OF PRESENT ILLNESS: Mrs. Jiménez is a 62-year-old female patient. She has a history of hypertension, COPD, PVD, chronic pain, arthritis, hypothyroidism, hyperlipidemia, and depression. She comes into the ED today. Initially, she says to me that her biggest complaint was that she was having some pain in her right leg, calf pain. She says it looked a little swollen, she was concerned about this, but then in addition to this she says that she had an episode of confusion. She denies having any recent changes in medication. According to the patient and ED notes, the patient's daughter had gone grocery shopping, came back, and when she arrived at home, the daughter noted the patient appeared to be confused, was not acting herself. There was concern on this part and the patient's daughter had called 911. The patient says that she has not been sick recently. There has been no fevers or chills. She denies having any chest pain. No shortness of breath. The patient says that she has not been around any sick contacts. There has been no fevers or chills. There has been no reports of vomiting or diarrhea. She came into the ED today and was noted that she was requiring a nonrebreather. When she was on room air, she was becoming hypoxic. It was noted that she was positive for benzos and opiates in her urine, but there was concern because of this episode of confusion. There was no report of slurred speech. No facial drooping. No weakness to one side. No difficulty finding word, just generalized altered mental status and confusion. The patient's daughter was concerned and called 911. We were asked to evaluate for admission due to the fact that there was a concern for altered mental status. PAST MEDICAL HISTORY: Significant for: 1. Hypertension. 2. COPD. 3. Peripheral vascular disease. 4. Chronic pain. 5. Arthritis. 6. Hypothyroidism. 7. Hyperlipidemia. 8. Depression. PAST SURGICAL HISTORY: She has had bilateral fem-pop bypasses. She has had stenting to the celiac and SMA arteries. She has had a bowel resection. MEDICATIONS: Her home meds, according to list she brought in, include: 1. Xanax 0.25 mg p.o. every 6 hours as needed. 2. Synthroid 75 mcg daily. 3. Neurontin 400 mg p.o. t.i.d. 4. Percocet 1 tablet p.o. t.i.d. as needed. 5. Spiriva 1 capsule inhaled daily. 6. Zoloft 200 mg daily. 7. Crestor 10 mg daily. 8. Singulair 10 mg daily. 9. Lisinopril 10 mg daily. 10. Flexeril 10 mg p.o. t.i.d. as needed. 11. Plavix 75 mg daily. 12. Symbicort 2 puffs inhaled b.i.d. 13. Aspirin 325 mg p.o. daily. 14. Albuterol 2 puffs inhaled every 4 hours as needed. ALLERGIES TO MEDICATIONS: No known drug allergies. FAMILY HISTORY: Unknown. SOCIAL HISTORY: She used to be a smoker. She does not drink alcohol. Surrogate decision maker is her daughter, Yaima. REVIEW OF SYSTEMS: There was no documented fever. She denies any significant weight change. There is no double vision. She denies having any ear discharge. There is no rhinorrhea, no sore throat, no thyroid enlargement. She denied having any chest pain. There was no orthopnea. No nocturnal dyspnea. There is no abdominal pain. No nausea, no vomiting. No dysuria. There was no frequency. No seizure, no loss of consciousness. No pruritus and no skin ulcerations. Review of 14 systems completed, all others are negative. PHYSICAL EXAMINATION GENERAL: At this time, Mrs. Jiménez is a 62-year-old female patient. She is sitting in the ED stretcher. She does not appear to be in any acute distress. VITAL SIGNS: Blood pressure initially initially 128/73, pulse 112, respirations 18, sat of 100% on nonrebreather, her O2 sat now on 3 L is 94%, her pulse is around 90, temperature was 98.7. HEENT: Head: Atraumatic, normocephalic. Eyes: EOMs are intact. Sclerae were anicteric. Throat: Oral mucosa appears to be dry. No oropharyngeal erythema. NECK: Supple. LUNGS: She did have wheezing noted in the upper lobes. Equal diaphragmatic expansion. There was expiratory wheezing. No rhonchi. HEART: Heart sounds S1 and S2. Regular rate and rhythm. No murmurs, rubs, or gallops. ABDOMEN: Soft, flat, nontender. Bowel sounds present. EXTREMITIES: Pulses were 2+ throughout. She is moving all 4 extremities with 5 /5 strength. I did not appreciate any calf tenderness on my exam or swelling to that right lower extremity. NEUROLOGIC: She is now awake, alert, oriented x3. Speech clear. Tongue midline. Cranial nerves II through XII were intact. [id number] intact bilaterally. No focal deficits. SKIN: Intact. DIAGNOSTIC STUDIES/LAB DATA: WBC of 9.8, RBC of 3.93, hemoglobin of 11.8, hematocrit of 35, platelet count of 186. INR was 0.94, PTT 29.7. Blood gas: pH of 7.35, PCO2 of 45, PO2 of 151. The sodium was 130, potassium 3.9, chloride 96, bicarb 28, BUN 21, creatinine 1.15, glucose 112. Lactate 0.6. Calcium 9.3. Total bili 0.4, AST 19, ALT 15, alk phos 48. CK 119. Troponin 0.01. Albumin 4.3. Urine showed trace leukocyte esterase, 2+ wbc, absent urine bacteria. Toxicology screen positive for opiates and benzos. Serology negative for flu. She did have imaging done in the ED. Brain CT showed no acute intracranial abnormality. She had a chest x-ray that showed no radiographic evidence for acute cardiopulmonary abnormality. She had an EKG obtained today showing a sinus tachycardia with PACs. No ST elevation was noted. I did review it with a previous EKG. On previous EKG she was in sinus rhythm. The sinus tachycardia is now new. Old medical records were reviewed. ASSESSMENT AND PLAN: Mrs. Jiménez is a 62-year-old female patient, coming in to the ED today with complaints of not feeling well, altered mental status. We were asked to evaluate for admission. She will be admitted under observation status for: 1. Altered mental status. Etiology is unclear. It was noted, when she was off O2, she was rather hypoxic, which certainly may be contributing to the altered mental status that was noted at home. Also there could be a component of polypharmacy. My plan at this point is to continue with supportive care. We will go ahead and treat any underlying infections, monitor her. She is on O2 now, she is mentating well. The hypoxia is concerning, especially with the tachycardia and the leg pain she had. I do think we should get a CTA of the chest. In addition to this, we should get an ultrasound of the right lower extremity to make sure there is no clotting that may have contributed to the hypoxia, which may have contributed to the altered mental status. 2. Hypoxia. Again, I am going to rule out pulmonary embolism, but also she was wheezing on exam. There could be a component of chronic obstructive pulmonary disease exacerbation, which certainly can cause the altered mental status and with the hypoxia. My plan is to go ahead and put her on steroids and inhaled Dulera. In addition to this, antibiotic therapy in the form of azithromycin and Rocephin. I will put her on the nebs standing and we will continue to follow her closely. 3. Chronic obstructive pulmonary disease. Again, with presumed exacerbation. Again, steroids, nebs antibiotics, pulmonary toileting. 4. Peripheral vascular disease. Continue with aspirin, Plavix, and statin therapy. 5. Hypertension. Continue meds as prescribed. 6. Hypothyroidism. Continue her Synthroid. 7. Chronic pain. Continue with Neurontin. 8. Hyperlipidemia. Continue statin therapy. 9. Depression. Continue her meds as prescribed and supportive care. 10. Code status: Full code. 11. Fluids, electrolytes, and nutrition: She can have a heart-healthy diet. 12. DVT prophylaxis: Heparin subcu has been ordered. TIME SPENT: Time spent on admission was 60 minutes, greater than half the time was spent [id number] with the patient obtaining my history and physical, the other half of time was spent going over the plan of care with the patient and implementing plan of care. I discussed the plan of care with my attending, Dr. Capone, who is in agreement. JORDEN EVANS, WANG [id number]/[facility] #: [id number] FERMÍN
[2017-12-03 03:50] LABS: INR 1.01 (0.77-1.02)
[2017-12-03 03:52] LABS: EGFR Non-African American 63.9 (>60)
[2017-12-03] MEDS: cefTRIAXone(*) 1 GM in NS 0.9% 50 ML* 50 ML IVPB SCH (05:00)
[2017-12-03] MEDS: predniSONE TAB* 20 MG PO SCH ×2 (05:04→20:43)
[2017-12-03] MEDS: Heparin VIAL(*) 5000 UNITS/ML VIAL (FIVE THOUSAND) SUBCUT SCH ×2 (05:09→14:59)
[2017-12-03] MEDS: Levothyroxine TAB* 75 MCG TAB PO SCH (05:09)
[2017-12-03] MEDS: ALPRAZolam TAB* 0.25 MG PO PRN ×2 (05:55→23:21)
--- NOTE | 2017-12-03 08:17 | RAD ---
INDICATION: Chest pain and shortness of breath. COMPARISON: Comparison is made with a prior CT angiogram of the chest from January 10, 2015 and a prior chest x-ray study from December 02, 2017. TECHNIQUE: A CT angiogram of the chest was performed with intravenous following intravenous injection of 68 ml of Visipaque 320 nonionic contrast. Contiguous axial sections were obtained from the lung apices through the lung bases. Images were reconstructed in the coronal and sagittal planes. FINDINGS: There is relatively homogeneous opacification of the pulmonary arteries. No intraluminal filling defect or pulmonary embolism is seen. The heart is within normal limits in size. No pericardial effusion is present. There are coronary artery calcifications present. The thoracic aorta is normal in caliber and demonstrates homogeneous contrast opacification. No significant enlarged mediastinal or hilar lymph nodes are seen. There is a 4 mm left upper lobe pulmonary nodule present along the lateral aspect of the left upper lobe on image #25 which is unchanged from the prior CT study and therefore most consistent with a benign process. There is also a pulmonary nodule present in the right lower lobe present along the major fissure measuring 1 cm in size which is also unchanged from the prior exam but seen on image #30. There is a nodular infiltrate present in the right lower lobe. No pleural effusion is present. No significant focal osseous abnormality is seen. IMPRESSION: 1. NO EVIDENCE FOR PULMONARY EMBOLISM. 2. SMALL RIGHT LOWER LOBE INFILTRATE,, RECOMMEND FOLLOW-UP CHEST X-RAYS TO RESOLUTION. 3. STABLE BILATERAL PULMONARY NODULES.
[2017-12-03] MEDS: Mometasone/Formoter 200/5 MDI INH SCH ×2 (08:39→20:34)
[2017-12-03] MEDS: Clopidogrel TAB* 75 MG PO SCH (09:32)
[2017-12-03] MEDS: Lisinopril TAB* 10 MG PO SCH (09:32)
[2017-12-03] MEDS: Sertraline* 100 MG TAB PO SCH (09:32)
[2017-12-03] MEDS: Montelukast Sodium TAB* 10 MG PO SCH (09:32)
[2017-12-03] MEDS: Atorvastatin* 20 MG TAB PO SCH (09:32)
[2017-12-03] MEDS: Aspirin EC TAB* 325 MG PO SCH (09:32)
--- NOTE | 2017-12-03 13:08 | PN ---
Subjective Date of Service: 12/03/17 Interval History: Pt examined today at the bedside. States she is feeling better. Denies chest pain. States she has SOB with exertion. Denies abdominal pain. Denies nausea and denies vomiting. ROS-denies fever, denies chills, denies chest pain, admits to MOORE, denies lightheadedness, denies loc, denies nausea, denies vomiting, denies loc, review of 11 systems completed all others negative, Objective Active Medications: Acetaminophen (Tylenol Tab*) 650 mg PO Q4H PRN PRN Reason: FEVER/PAIN Albuterol (Ventolin 2.5 Mg/3 Ml Neb.Griselda*) 2.5 mg INH Q2H PRN PRN Reason: SOB/WHEEZING Albuterol/Ipratropium (Duoneb (Albuterol 2.5 Mg/Ipratropium 0.5 Mg)) 1 neb INH Q4H [facility] Last Admin: 12/03/17 08:39 Dose: 1 neb Alprazolam (Xanax Tab*) 0.25 mg PO Q6H PRN PRN Reason: ANXIETY Last Admin: 12/03/17 05:55 Dose: 0.25 mg Aspirin (Ecotrin Ec Tab*) 325 mg PO DAILY [facility] Last Admin: 12/03/17 09:32 Dose: 325 mg Atorvastatin Calcium (Lipitor*) 20 mg PO DAILY [facility] PRN Reason: Protocol Last Admin: 12/03/17 09:32 Dose: 20 mg Clopidogrel Bisulfate (Plavix Tab*) 75 mg PO DAILY [facility] Last Admin: 12/03/17 09:32 Dose: 75 mg Cyclobenzaprine HCl (Flexeril Tab*) 10 mg PO TID PRN PRN Reason: SPASMS Heparin Sodium (Porcine) (Heparin Vial(*)) 5,000 units SUBCUT Q8HR [facility] Last Admin: 12/03/17 05:09 Dose: 5,000 units Azithromycin 500 mg/ Sodium (Chloride) 250 mls @ 250 mls/hr IVPB Q24H [facility] Last Admin: 12/03/17 02:28 Dose: 250 mls/hr Ceftriaxone Sodium 1 gm/ (Sodium Chloride) 50 mls @ 200 mls/hr IVPB Q24H [facility] Last Admin: 12/03/17 05:00 Dose: 200 mls/hr Levothyroxine Sodium (Synthroid Tab*) 75 mcg PO 0600 [facility] Last Admin: 12/03/17 05:09 Dose: 75 mcg Lisinopril (Prinivil Tab*) 10 mg PO DAILY [facility] Last Admin: 12/03/17 09:32 Dose: 10 mg Mometasone Furoate/Formoterol Fumar (Dulera 200/5 Mdi*) 2 puff INH BID [facility] Last Admin: 12/03/17 08:39 Dose: 2 puff Montelukast Sodium (Singulair Tab*) 10 mg PO DAILY [facility] Last Admin: 12/03/17 09:32 Dose: 10 mg Ondansetron HCl (Zofran Inj*) 4 mg IV Q6H PRN PRN Reason: NAUSEA Oxycodone/Acetaminophen (Percocet 5/325 Tab*) 1 tab PO TID PRN PRN Reason: PAIN Prednisone (Deltasone Tab*) 60 mg PO BEDTIME [facility] Last Admin: 12/03/17 05:04 Dose: 60 mg Sertraline HCl (Zoloft*) 200 mg PO DAILY [facility] Last Admin: 12/03/17 09:32 Dose: 200 mg Vital Signs - 8 hr 12/03/17 12/03/17 12/03/17 05:48 05:55 07:41 Temperature 100.7 F Pulse Rate 110 102 Respiratory 22 24 20 Rate Blood Pressure 125/76 (mmHg) O2 Sat by Pulse 97 87 Oximetry 12/03/17 12/03/17 12/03/17 08:00 08:47 09:26 Temperature Pulse Rate 86 Respiratory 16 16 Rate Blood Pressure (mmHg) O2 Sat by Pulse 87 91 Oximetry 12/03/17 12/03/17 09:50 10:05 Temperature Pulse Rate 84 Respiratory 14 Rate Blood Pressure (mmHg) O2 Sat by Pulse 92 92 Oximetry Oxygen Devices in Use Now: Nasal Cannula Appearance: 62 y/o female patient sitting in bed NAD, Eyes: No Scleral Icterus, PERRLA Ears/Nose/Mouth/Throat: NL Teeth, Lips, Gums Neck: NL Appearance and Movements; NL JVP Respiratory: Symmetrical Chest Expansion and Respiratory Effort, - - Wheezing lower lobes more on left than right, Cardiovascular: NL Sounds; No Murmurs; No JVD Abdominal: NL Sounds; No Tenderness; No Distention Extremities: No Edema Skin: No Rash or Ulcers Neurological: Alert and Oriented x 3 Lines/Tubes/Other Access: Clean, Dry and Intact Peripheral IV Result Diagrams: 12/03/17 03:25 12/03/17 03:25 Additional Lab and Data: Lab Results 12/02/17 12/02/17 12/02/17 Range/Units 21:32 21:32 21:32 WBC 9.8 (3.5-10.8) 10^3/ul RBC 3.93 L (4.0-5.4) 10^6/ul Hgb 11.8 L (12.0-16.0) g/dl Hct 35 (35-47) % MCV 90 (80-97) fL MCH 30 (27-31) pg MCHC 33 (31-36) g/dl RDW 13 (10.5-15) % Plt Count 186 (150-450) 10^3/ul MPV 8 (7.4-10.4) um3 Neut % (Auto) 85.9 H (38-83) % Lymph % (Auto) 7.3 L (25-47) % [place] % (Auto) 6.4 (1-9) % Eos % (Auto) 0.2 (0-6) % Baso % (Auto) 0.2 (0-2) % Absolute Neuts (auto) 8.5 H (1.5-7.7) 10^3/ul Absolute Lymphs (auto) 0.7 L (1.0-4.8) 10^3/ul Absolute Monos (auto) 0.6 (0-0.8) 10^3/ul Absolute Eos (auto) 0 (0-0.6) 10^3/ul Absolute Basos (auto) 0 (0-0.2) 10^3/ul Absolute Nucleated RBC 0 10^3/ul Nucleated RBC % 0 INR (Anticoag Therapy) 0.94 (0.77-1.02) APTT 29.7 (26.0-36.3) seconds Patient Temperature ABG pH (7.35-7.45) ABG pH (Temp Correct) ABG pCO2 (35-45) mmHg ABG pCO2 (Temp Corrct ABG pO2 (80-100) mmHg ABG pO2 (Temp Correct ABG HCO3 (19-31) mmol/L ABG O2 Saturation (95-98) % ABG Base Excess (-2.0-2.0) Respiration Rate O2 Delivery Device Ventilator Type Vent Mode FiO2 Inspiratory Time PEEP Pressure Support Pressure Control EPAP IPAP BiPAP Sodium 130 L (133-145) mmol/L Potassium 3.9 (3.5-5.0) mmol/L Chloride 96 L (101-111) mmol/L Carbon Dioxide 28 (22-32) mmol/L Anion Gap 6 (2-11) mmol/L BUN 21 (6-24) mg/dL Creatinine 1.15 H (0.51-0.95) mg/dL Est GFR ( Amer) 61.1 (>60) Est GFR (Non-Af Amer) 47.5 (>60) BUN/Creatinine Ratio 18.3 (8-20) Glucose 112 H (70-100) mg/dL Lactic Acid (0.5-2.0) mmol/L Calcium 9.3 (8.6-10.3) mg/dL Total Bilirubin 0.40 (0.2-1.0) mg/dL AST 19 (13-39) U/L ALT 15 (7-52) U/L Alkaline Phosphatase 48 (34-104) U/L Total Creatine Kinase 119 (10-223) U/L Troponin I 0.01 (<0.04) ng/mL C-Reactive Protein 37.34 H (< 5.00) mg/L Total Protein 7.4 (6.4-8.9) g/dL Albumin 4.3 (3.2-5.2) g/dL Globulin 3.1 (2-4) g/dL Albumin/Globulin Ratio 1.4 (1-3) Urine Color Urine Appearance Urine pH (5-9) Ur Specific [place] (1.010-1.030) Urine Protein (Negative) Urine Ketones (Negative) Urine Blood (Negative) Urine Nitrate (Negative) Urine Bilirubin (Negative) Urine Urobilinogen (Negative) Ur Leukocyte Esterase (Negative) Urine WBC (Auto) (Absent) Urine RBC (Auto) (Absent) Ur Squamous Epith Cells (Absent) Urine Bacteria (Absent) Urine Glucose (Negative) Urine Opiates Screen (None Detect) Ur Barbiturates Screen (None Detect) Ur Phencyclidine Scrn (None Detect) Ur Amphetamines Screen (None Detect) U Benzodiazepines Scrn (None Detect) Urine Cocaine Screen (None Detect) U Cannabinoids Screen (None Detect) Influenza A (Rapid) (Negative) Influenza B (Rapid) (Negative) 12/02/17 12/02/17 12/02/17 Range/Units 21:32 21:40 22:00 WBC (3.5-10.8) 10^3/ul RBC (4.0-5.4) 10^6/ul Hgb (12.0-16.0) g/dl Hct (35-47) % MCV (80-97) fL MCH (27-31) pg MCHC (31-36) g/dl RDW (10.5-15) % Plt Count (150-450) 10^3/ul MPV (7.4-10.4) um3 Neut % (Auto) (38-83) % Lymph % (Auto) (25-47) % [place] % (Auto) (1-9) % Eos % (Auto) (0-6) % Baso % (Auto) (0-2) % Absolute Neuts (auto) (1.5-7.7) 10^3/ul Absolute Lymphs (auto) (1.0-4.8) 10^3/ul Absolute Monos (auto) (0-0.8) 10^3/ul Absolute Eos (auto) (0-0.6) 10^3/ul Absolute Basos (auto) (0-0.2) 10^3/ul Absolute Nucleated RBC 10^3/ul Nucleated RBC % INR (Anticoag Therapy) (0.77-1.02) APTT (26.0-36.3) seconds Patient Temperature Not Reportable ABG pH 7.38 (7.35-7.45) ABG pH (Temp Correct) Not Reportable ABG pCO2 45 (35-45) mmHg ABG pCO2 (Temp Corrct Not Reportable ABG pO2 151 H (80-100) mmHg ABG pO2 (Temp Correct Not Reportable ABG HCO3 25.8 (19-31) mmol/L ABG O2 Saturation 96.2 (95-98) % ABG Base Excess 1.1 (-2.0-2.0) Respiration Rate Not Reportable O2 Delivery Device non rebreather Ventilator Type Not Reportable Vent Mode Not Reportable FiO2 100 Inspiratory Time Not Reportable PEEP Not Reportable Pressure Support Not Reportable Pressure Control Not Reportable EPAP Not Reportable IPAP Not Reportable BiPAP Not Reportable Sodium (133-145) mmol/L Potassium (3.5-5.0) mmol/L Chloride (101-111) mmol/L Carbon Dioxide (22-32) mmol/L Anion Gap (2-11) mmol/L BUN (6-24) mg/dL Creatinine (0.51-0.95) mg/dL Est GFR ( Amer) (>60) Est GFR (Non-Af Amer) (>60) BUN/Creatinine Ratio (8-20) Glucose (70-100) mg/dL Lactic Acid 0.6 (0.5-2.0) mmol/L Calcium (8.6-10.3) mg/dL Total Bilirubin (0.2-1.0) mg/dL AST (13-39) U/L ALT (7-52) U/L Alkaline Phosphatase (34-104) U/L Total Creatine Kinase (10-223) U/L Troponin I (<0.04) ng/mL C-Reactive Protein (< 5.00) mg/L Total Protein (6.4-8.9) g/dL Albumin (3.2-5.2) g/dL Globulin (2-4) g/dL Albumin/Globulin Ratio (1-3) Urine Color Urine Appearance Urine pH (5-9) Ur Specific [place] (1.010-1.030) Urine Protein (Negative) Urine Ketones (Negative) Urine Blood (Negative) Urine Nitrate (Negative) Urine Bilirubin (Negative) Urine Urobilinogen (Negative) Ur Leukocyte Esterase (Negative) Urine WBC (Auto) (Absent) Urine RBC (Auto) (Absent) Ur Squamous Epith Cells (Absent) Urine Bacteria (Absent) Urine Glucose (Negative) Urine Opiates Screen (None Detect) Ur Barbiturates Screen (None Detect) Ur Phencyclidine Scrn (None Detect) Ur Amphetamines Screen (None Detect) U Benzodiazepines Scrn (None Detect) Urine Cocaine Screen (None Detect) U Cannabinoids Screen (None Detect) Influenza A (Rapid) Negative (Negative) Influenza B (Rapid) Negative (Negative) 12/02/17 12/02/17 Range/Units 22:43 22:43 WBC (3.5-10.8) 10^3/ul RBC (4.0-5.4) 10^6/ul Hgb (12.0-16.0) g/dl Hct (35-47) % MCV (80-97) fL MCH (27-31) pg MCHC (31-36) g/dl RDW (10.5-15) % Plt Count (150-450) 10^3/ul MPV (7.4-10.4) um3 Neut % (Auto) (38-83) % Lymph % (Auto) (25-47) % [place] % (Auto) (1-9) % Eos % (Auto) (0-6) % Baso % (Auto) (0-2) % Absolute Neuts (auto) (1.5-7.7) 10^3/ul Absolute Lymphs (auto) (1.0-4.8) 10^3/ul Absolute Monos (auto) (0-0.8) 10^3/ul Absolute Eos (auto) (0-0.6) 10^3/ul Absolute Basos (auto) (0-0.2) 10^3/ul Absolute Nucleated RBC 10^3/ul Nucleated RBC % INR (Anticoag Therapy) (0.77-1.02) APTT (26.0-36.3) seconds Patient Temperature ABG pH (7.35-7.45) ABG pH (Temp Correct) ABG pCO2 (35-45) mmHg ABG pCO2 (Temp Corrct ABG pO2 (80-100) mmHg ABG pO2 (Temp Correct ABG HCO3 (19-31) mmol/L ABG O2 Saturation (95-98) % ABG Base Excess (-2.0-2.0) Respiration Rate O2 Delivery Device Ventilator Type Vent Mode FiO2 Inspiratory Time PEEP Pressure Support Pressure Control EPAP IPAP BiPAP Sodium (133-145) mmol/L Potassium (3.5-5.0) mmol/L Chloride (101-111) mmol/L Carbon Dioxide (22-32) mmol/L Anion Gap (2-11) mmol/L BUN (6-24) mg/dL Creatinine (0.51-0.95) mg/dL Est GFR ( Amer) (>60) Est GFR (Non-Af Amer) (>60) BUN/Creatinine Ratio (8-20) Glucose (70-100) mg/dL Lactic Acid (0.5-2.0) mmol/L Calcium (8.6-10.3) mg/dL Total Bilirubin (0.2-1.0) mg/dL AST (13-39) U/L ALT (7-52) U/L Alkaline Phosphatase (34-104) U/L Total Creatine Kinase (10-223) U/L Troponin I (<0.04) ng/mL C-Reactive Protein (< 5.00) mg/L Total Protein (6.4-8.9) g/dL Albumin (3.2-5.2) g/dL Globulin (2-4) g/dL Albumin/Globulin Ratio (1-3) Urine Color Yellow Urine Appearance Cloudy Urine pH 5.0 (5-9) Ur Specific [place] 1.016 (1.010-1.030) Urine Protein Negative (Negative) Urine Ketones Negative (Negative) Urine Blood Negative (Negative) Urine Nitrate Negative (Negative) Urine Bilirubin Negative (Negative) Urine Urobilinogen Negative (Negative) Ur Leukocyte Esterase Trace H (Negative) Urine WBC (Auto) 2+(11-20/hpf) H (Absent) Urine RBC (Auto) Absent (Absent) Ur Squamous Epith Cells Present H (Absent) Urine Bacteria Absent (Absent) Urine Glucose Negative (Negative) Urine Opiates Screen Presumptive positive H (None Detect) Ur Barbiturates Screen None detected (None Detect) Ur Phencyclidine Scrn None detected (None Detect) Ur Amphetamines Screen None detected (None Detect) U Benzodiazepines Scrn Presumptive positive H (None Detect) Urine Cocaine Screen None detected (None Detect) U Cannabinoids Screen None detected (None Detect) Influenza A (Rapid) (Negative) Influenza B (Rapid) (Negative) Microbiology and Other Data: Microbiology 12/03/17 02:30 Legionella Urinary Antigen - Final Urine Negative Legionella Streptococcus pneumoniae Ag Screen - Final Negative S. pneumo Antigen Assess/Plan/Problems-Billing Assessment: 62 y/o female patient [place] [facility] [place] of [place]B, found to have PNA and copd exacerbation - Patient Problems (1) PNA (pneumonia) Current Visit: Yes Status: Acute Priority: High Comment: Suspect this is cause of hypoxia and AMS, continue abx, urine antigens negative, continue sterdoids and nebs, (2) PVD (peripheral vascular disease) Current Visit: Yes Status: Acute Priority: High Comment: continue statin, asa and plavix (3) HLD (hyperlipidemia) Current Visit: Yes Status: Acute Priority: High Comment: Statin (4) Hypothyroid Current Visit: Yes Status: Acute Priority: High Comment: continue synthroid, (5) FEN Current Visit: Yes Status: Acute Priority: High Comment: heart healthy diet (6) Chronic pain Current Visit: Yes Status: Acute Priority: High Comment: continue home meds, (7) Depression Current Visit: Yes Status: Acute Priority: High Comment: stable, continue home meds, (8) Altered mental status Current Visit: Yes Status: Acute Priority: High Comment: suspect r/t pna and hyppoxia, continue abx, nebs, steriods, now resolved, (9) DVT prophylaxis Current Visit: Yes Status: Acute Priority: High Comment: hep subq (10) Full code status Current Visit: Yes Status: Acute Priority: High (11) Elevated troponin Current Visit: Yes Status: Acute Priority: High Comment: suspect this is demand ischemia in setting of hypoxia and pna trop .05, repeat ekg today and check trop, echo ordered, (12) COPD exacerbation Current Visit: Yes Status: Acute Priority: High Comment: wheezing on exam today, patient requires o2 with exertion, suspect r/t pna, pt with recent exposure to sick child, continue nebs, steriods, abx, Status and Disposition: Home when medically stable,
--- NOTE | 2017-12-03 13:38 | RAD ---
INDICATION: RIGHT lower extremity pain and swelling. COMPARISON: February 17, 2016 TECHNIQUE: Hill scale, color Doppler, and spectral analysis of the deep veins of the RIGHT lower extremity. Vessel compression, phasicity, and augmentation assessed. REPORT: The RIGHT common femoral, great saphenous, profunda femoral, femoral, popliteal, peroneal, and posterior tibial veins are patent. Patency of the LEFT common femoral vein documented. IMPRESSION: No evidence for RIGHT lower extremity deep venous thrombosis.
[2017-12-03] MEDS ORDERED: Perflutren Lipid Microsphere* 3 ML VIAL ONE (14:05)
[2017-12-03] MEDS: oxyCODONE/Acetamin 5/325 MG* TAB PO PRN ×2 (14:59→20:43)
[2017-12-03 15:54] LABS: EGFR Non-African American 82.9 (>60)
--- NOTE | 2017-12-03 16:29 | ECHO ---
Patient: ANJEL ELLINGTON [facility] Rec#: [id number] : 1955 Date: 12/03/2017 Age: 62y Height: 170.18 cm / 67.0 in Weight: 76.2 kg / 167.9 lbs Sex: F BSA: 1.88 Room#: 435 Admit Date#: 12/03/2017 Type: Inpatient Referring: Jorden Evans NP Reading: Alex Elizabeth MD Floor Representative: Arabella Freed RDCS CC: Miguel Parmar MD Transthoracic Echocardiogram Indication: ACS//HTN BP: 125/76 HR: 88 Rhythm: NSR Findings History: HTN,COPD,PVD,chronic pain,arthritis,hypothyroid,depression. Technical Comments: The study is technically limited due to the patient's history of COPD. Definity was used to enhance images. Completed at 1450. Left Ventricle: The left ventricular chamber size is normal. Moderate concentric left ventricular hypertrophy is observed. Global left ventricular wall motion and contractility are within normal limits. There is normal left ventricular systolic function. The estimated ejection fraction is 55-60%. Normal left ventricular diastolic filling is observed. Left Atrium: The left atrium is slightly dilated. Right Ventricle: The right ventricular cavity size is normal. The right ventricular global systolic function is normal. Right Atrium: The right atrium appears normal. Aortic Valve: The aortic valve is trileaflet. Mild aortic cusp sclerosis is present. There is a trace of aortic regurgitation. There is moderate aortic stenosis. The mean gradient of the aortic valve is 16.83 mmHg. Highest aortic valve velocity was acquired with Pedoff in apical position. Mitral Valve: The mitral valve leaflets are mildly thickened. There is a trace of mitral regurgitation. There is no evidence of mitral stenosis. Tricuspid Valve: The tricuspid valve leaflets are normal. There is mild to moderate tricuspid regurgitation. There is evidence of moderate pulmonary hypertension. There is no tricuspid stenosis. Pulmonic Valve: The pulmonic valve appears normal. There is trace to mild pulmonic regurgitation. There is no pulmonic stenosis. Pericardium: The pericardium appears normal. Aorta: There is no dilatation of the ascending aorta. There is no dilatation of the aortic arch. There is no dilation of the aortic root. Pulmonary Artery: The main pulmonary artery appears normal. Venous: The inferior vena cava is dilated. There is less than 50% respiratory change in the inferior vena cava dimension. Contrast: Definity was used to optimize study. A total of 4 ml used. Intravenous contrast was used to enhance endocardial border definition. Conclusions Moderate concentric left ventricular hypertrophy is observed. Global left ventricular wall motion and contractility are within normal limits. The estimated ejection fraction is 55-60%. The right ventricular global systolic function is normal. There is a trace of aortic regurgitation. There is moderate aortic stenosis. The mean gradient of the aortic valve is 16.83 mmHg. There is a trace of mitral regurgitation. There is mild to moderate tricuspid regurgitation. There is evidence of moderate pulmonary hypertension. The pericardium appears normal. Compared to study of 03/09/14, the LV function is the same the aortic stenosis is slightly worse Measurements Name Value Normal Range RVIDd (AP) 2D 3.2 cm (0.9 - 2.6) RVDdMajor (2D) 3 cm (2.2 - 4.4) RAd ISD 4CH 4 cm (3.4 - 4.9) RA (A4C)W 3.7 cm (2.9 - 4.6) IVSd (2D) 1.4 cm (0.6 - 1) LVPWd (2D) 1.3 cm (0.6 - 1) LVIDd (2D) 3.8 cm (3.6 - 5.4) LVIDs (2D) 2.4 cm - LV FS (2D) 36 % (25 - 45) Aortic Annulus 2.1 cm (1.4 - 2.6) Ao root diameter (2D) 3.4 cm (2.1 - 3.5) Ascending Ao 3 cm (2.1 - 3.4) Aortic arch 2.2 cm (1.8 - 3.4) Descending Ao 0.5 cm - LA dimension (AP) 2D 4 cm (2.3 - 3.8) LAd ISD 4CH 4.9 cm (2.9 - 5.3) LA ISD 4CH W 3.5 cm (2.5 - 4.5) Name Value Normal Range LA ESV SP 4CH (A/L) 40 ml - LA ESV SP 2CH (A/L) 52 ml - LA ESV BP (A/L) 47 ml - LA ESV BP (A/L) index 24.98 ml/m2 - LA ESV SP 4CH (MOD) 36 ml - LA ESV SP 2CH (MOD) 50 ml - Name Value Normal Range MV E-wave Vmax 1.3 m/sec - MV deceleration time 110 msec - MV A-wave Vmax 0.9 m/sec - MV E:A ratio 1.38 ratio - LV septal e' Vmax 0.08 m/sec - LV lateral e' Vmax 0.13 m/sec - LV E:e' septal ratio 16.25 ratio - LV E:e' lateral ratio 10 ratio - Name Value Normal Range AV Vmax 2.8 m/sec - AV VTI 61.7 cm - AV peak gradient 31.71 mmHg - AV mean gradient 16.83 mmHg - LVOT diameter 1.7 cm - LVOT Vmax 1 m/sec - LVOT VTI 21.1 cm - LVOT peak gradient 4.3 mmHg - LVOT mean gradient 2.07 mmHg - SV LVOT 50 ml - EDIL (continuity Vmax) 0.8 cm2 - EDIL (continuity VTI) 0.8 cm2 - Name Value Normal Range MR Vmax 4.1 m/sec - MR VTI 98.41 cm - Name Value Normal Range TR Vmax 3.1 m/sec - TR peak gradient 38 mmHg - RAP 15 mmHg - RVSP 53 mmHg - IVC diameter 2.5 cm - Name Value Normal Range PV Vmax 0.9 m/sec - PV peak gradient 3.55 mmHg -
[2017-12-03] MEDS ORDERED: Heparin DRIP 25,000 UNITS(*) 25,000 UNITS/500 ML BAG IVPB SCH (16:45)
--- NOTE | 2017-12-03 16:50 | PN ---
Hospitalist Progress Note Date of Service: 12/03/17 Noted trop .96. Ekg stable no chest pain. Given copd exacerbation holding beta hermilo on plavix satin asa, lisinopril, starting hep gtt. Pt with no chest pain. echo obtained, cardiology to see.
[2017-12-03] MEDS ORDERED: Heparin VIAL(*) 5000 UNITS/ML VIAL (FIVE THOUSAND) IV SCH (17:00)
[2017-12-03 17:54] LABS: ABS Basophils 0 10^3/ul (0-0.2); ABS Eosinophils 0 10^3/ul (0-0.6); ABS Lymphocytes 0.7 10^3/ul (1.0-4.8); ABS Monocytes 0.3 10^3/ul (0-0.8); ABS Neutrophils 6.2 10^3/ul (1.5-7.7); ABS Nucleated RBC 0 10^3/ul; Eosinophil % 0 % (0-6); Hematocrit 34 % (35-47); Hemoglobin 11.6 g/dl (12.0-16.0); Lymphocyte % 10.1 % (25-47); Mean Corpuscular HGB Conc 34 g/dl (31-36); Mean Corpuscular Hemoglobin 31 pg (27-31); Mean Corpuscular Volume 90 fL (80-97); Mean Platelet Volume 8 um3 (7.4-10.4); Nucleated Red Blood Cells % 0; Platelet Count 172 10^3/ul (150-450); Red Blood Count 3.76 10^6/ul (4.0-5.4); Red Cell Distribution Width 13 % (10.5-15); White Blood Count 7.3 10^3/ul (3.5-10.8)
--- NOTE | 2017-12-03 22:45 | CONS ---
CC: Dr. Parmar * CARDIOLOGY CONSULTATION: DATE OF CONSULTATION: 12/03/17 INDICATION FOR CONSULTATION: Abnormal troponin. HISTORY OF PRESENT ILLNESS: The patient is a 62-year-old female with a history of COPD, history of peripheral vascular disease, history of bilateral fem-pop bypass, also history of stenting of her celiac and SMA arteries who was admitted to the hospital because of leg pain and episodes of nonresponsiveness. The patient's statements are difficult to follow. It is unclear exactly how she came to the emergency room. The patient does state that she gets severe cramps on her right leg, but those have been going on for a month or so. She was found confused by her daughter and brought her to the emergency room. In the emergency room, the patient was placed on a nonrebreather and subsequently her generalized confusion resolved. The patient denies any chest pain. She denies any shortness of breath. She denied any orthopnea. The patient's initial troponin levels were normal, but her most recent troponin level was 0.96. I specifically asked about shortness of breath and chest heaviness, which she denied. PAST MEDICAL HISTORY: 1. Hypertension. 2. COPD. 3. Peripheral vascular disease as described above. 4. Hypothyroidism. 5. Depression. PAST SURGICAL HISTORY: 1. Fem-pop bypass. 2. Stenting to the celiac and SMA arteries. 3. History of bowel resection. OUTPATIENT MEDICATIONS: 1. Synthroid 75 mcg a day. 2. Neurontin 400 mg 3 times a day. 3. Percocet as needed. 4. Spiriva 1 tablet inhaled daily. 5. Zoloft 200 mg a day. 6. Crestor 10 mg a day. 7. Singulair 10 mg a day. 8. Lisinopril 10 mg a day. 9. Flexeril 10 mg 3 times a day as needed. 10. Plavix 75 mg a day. 11. Aspirin 325 mg a day. 12. Symbicort. 13. Albuterol inhaler. ALLERGIES: No known drug allergies. SOCIAL HISTORY: The patient is a previous smoker, she quit many years ago. History of alcohol use, but is now abstinent. She lives alone. Her daughter does take care of her. PHYSICAL EXAMINATION: Vital Signs: Height is 5 feet 7 inches, weight is 164 pounds. Temperature 97.9, heart rate is 93, respiratory rate is 20, oxygen saturation 98% on 2 L, blood pressure 107/67. Sclerae anicteric. Oropharynx is pink without erythema. She has no dentition. Carotids are 2+ without bruits. JVD is normal. Thyroid is normal. Cardiac Exam: S1, S2 with a 1/6 systolic ejection murmur heard best at the left upper sternal border. PMI is normal. Lungs: Clear to auscultation. There are decreased breath sound throughout. There is no dullness to percussion. Abdomen is soft, nontender, nondistended with normoactive bowel sounds. Extremities show no edema. She has poor pulses on dorsalis and popliteal. The patient is awake and alert and oriented. She moves all 4 extremities equally. LABORATORY STUDIES: White count 7.3, hematocrit 34, hemoglobin 11, platelet count 160,000. Chemistries are within normal limits. INR is 0.94. IMAGING: EKG shows normal sinus rhythm with diffuse low voltage. IMPRESSION: This is a 62-year-old female with a history of peripheral vascular disease as described above who is admitted to the hospital with decreased consciousness. In general, I cannot elicit any specific cardiac symptoms. She has no angina. She has no orthopnea. She has no palpitations. RECOMMENDATIONS: For now, my recommendation is to treat the patient with acute coronary syndrome. I have little doubt that the patient does have coronary artery disease given her extensive peripheral vascular disease. Her echocardiogram shows normal LV size and systolic function. She has moderate aortic stenosis. For now, the patient will be started on heparin, beta-hermilo. She will continue her aspirin and Plavix. The patient will be scheduled for a chemical nuclear stress test in the morning for risk stratification. [id number]/[facility] #: [id number] [facility]
[2017-12-04] MEDS: cefTRIAXone(*) 1 GM in NS 0.9% 50 ML* 50 ML IVPB SCH (00:39)
[2017-12-04] MEDS: Azithromycin IV(*) 500 MG in NS 0.9% 250 ML* 250 ML IVPB SCH (01:10)
[2017-12-04] MEDS: Albuterol/Ipratropium NEB.SOL* Albuterol 2.5 MG/Ipratropium 0.5 MG 3 ML INH SCH ×4 (02:02→13:57)
[2017-12-04 05:34] LABS: ABS Basophils 0 10^3/ul (0-0.2); ABS Eosinophils 0 10^3/ul (0-0.6); ABS Lymphocytes 0.9 10^3/ul (1.0-4.8); ABS Monocytes 0.3 10^3/ul (0-0.8); ABS Neutrophils 6.1 10^3/ul (1.5-7.7); ABS Nucleated RBC 0 10^3/ul; Eosinophil % 0 % (0-6); Hematocrit 35 % (35-47); Hemoglobin 11.7 g/dl (12.0-16.0); Lymphocyte % 11.8 % (25-47); Mean Corpuscular HGB Conc 33 g/dl (31-36); Mean Corpuscular Hemoglobin 30 pg (27-31); Mean Corpuscular Volume 91 fL (80-97); Mean Platelet Volume 8 um3 (7.4-10.4); Nucleated Red Blood Cells % 0; Platelet Count 144 10^3/ul (150-450); Red Blood Count 3.89 10^6/ul (4.0-5.4); Red Cell Distribution Width 13 % (10.5-15); White Blood Count 7.3 10^3/ul (3.5-10.8)
[2017-12-04] MEDS: Levothyroxine TAB* 75 MCG TAB PO SCH (05:50)
[2017-12-04] MEDS: oxyCODONE/Acetamin 5/325 MG* TAB PO PRN ×3 (07:22→22:38)
[2017-12-04] MEDS: ALPRAZolam TAB* 0.25 MG PO PRN ×3 (07:22→22:40)
[2017-12-04] MEDS ORDERED: Aminophylline IV* 25 MG/ML 10 ML VIAL ONE (09:56)
[2017-12-04] MEDS ORDERED: Regadenoson* 0.4 MG/5 ML SYRINGE ONE (09:56)
[2017-12-04] MEDS: Mometasone/Formoter 200/5 MDI INH SCH ×2 (11:22→20:45)
[2017-12-04] MEDS: Aspirin EC TAB* 325 MG PO SCH (11:45)
[2017-12-04] MEDS: Atorvastatin* 20 MG TAB PO SCH (11:45)
[2017-12-04] MEDS: Montelukast Sodium TAB* 10 MG PO SCH (11:46)
[2017-12-04] MEDS: Sertraline* 100 MG TAB PO SCH (11:46)
[2017-12-04] MEDS: Clopidogrel TAB* 75 MG PO SCH (11:46)
[2017-12-04] MEDS: Lisinopril TAB* 10 MG PO SCH (11:46)
--- NOTE | 2017-12-04 12:01 | RAD ---
Edited for charges. INDICATION: Elevated troponins COMPARISON: There are no prior studies available for comparison. Technique: A single day myocardial perfusion stress study was performed. Initially the resting study was performed. The patient was given an intravenous injection of 10.9 mCi of technetium 99m tetrofosmin and and the heart was imaged in multiple projections. The patient returned later in the day and under the direction of Dr. Elizabeth, the patient was given intervenous injection of Lexiscan. Subsequently the patient was given intravenous injection of 25.2 mCi of technetium 99m tetrofosmin and the heart was imaged in multiple projections. Images were reconstructed in the axial, sagittal and coronal planes and in a 3- D format. FINDINGS: There is slight decreased wall motion within the septum. The left ventricular ejection fraction is calculated to be 68%. Review of the images demonstrates a moderate size area of decreased activity in the anteroseptal wall which is appears smaller on the periphery on the resting set of images suggestive of an infarct with devon-infarct ischemia. On the attenuated corrected CT images there is a small right lower lobe infiltrate which appears similar to the prior CT angiogram study from December 03, 2017. IMPRESSION: 1. FINDINGS MOST CONSISTENT WITH AN INFARCT IN THE ANTEROSEPTAL WALL WITH MODERATE DEVON-INFARCT ISCHEMIA. 2. SMALL RIGHT LOWER LOBE INFILTRATE. ASSESSMENT: Intermediate risk. Based on imaging criteria from ACC/AHA 2002 Guideline Update for the Management of Patients With Chronic Stable Angina Table 23. Noninvasive Risk Stratification. MTDD
[2017-12-04] MEDS ORDERED: Albuterol HFA INHALER* 8 gm MDI INH PRN (13:59)
[2017-12-04] MEDS: Albuterol 2.5 MG/3 ML NEB.SOL* (0.083%) INH PRN (15:04)
[2017-12-04] MEDS: predniSONE TAB* 20 MG PO SCH (19:57)
--- NOTE | 2017-12-04 22:14 | PN ---
Subjective Date of Service: 12/04/17 Interval History: positive nuclear stress (anteroseptal wall). very anxious. discussed with pt and daughter neri via phone at length. klebsiella pna uti. hx of stress incontinence. Objective Active Medications: Acetaminophen (Tylenol Tab*) 650 mg PO Q4H PRN PRN Reason: FEVER/PAIN Albuterol (Ventolin 2.5 Mg/3 Ml Neb.Griselda*) 2.5 mg INH Q2H PRN PRN Reason: SOB/WHEEZING Last Admin: 12/04/17 15:04 Dose: 2.5 mg Albuterol (Ventolin Hfa Inhaler*) 2 puff INH Q4H PRN PRN Reason: SOB/WHEEZING Alprazolam (Xanax Tab*) 0.25 mg PO Q6H PRN PRN Reason: ANXIETY Last Admin: 12/04/17 14:55 Dose: 0.25 mg Aspirin (Ecotrin Ec Tab*) 325 mg PO DAILY [facility] Last Admin: 12/04/17 11:45 Dose: 325 mg Atorvastatin Calcium (Lipitor*) 20 mg PO DAILY [facility] PRN Reason: Protocol Last Admin: 12/04/17 11:45 Dose: 20 mg Clopidogrel Bisulfate (Plavix Tab*) 75 mg PO DAILY [facility] Last Admin: 12/04/17 11:46 Dose: 75 mg Cyclobenzaprine HCl (Flexeril Tab*) 10 mg PO TID PRN PRN Reason: SPASMS Azithromycin 500 mg/ Sodium (Chloride) 250 mls @ 250 mls/hr IVPB Q24H [facility] Last Admin: 12/04/17 01:10 Dose: 250 mls/hr Ceftriaxone Sodium 1,000 mg/ (Dextrose) 50 mls @ 200 mls/hr IVPB Q24H [facility] Sodium Chloride (Ns 0.9% 1000 Ml*) 1,000 mls @ 100 mls/hr IV .per rate [facility] Levothyroxine Sodium (Synthroid Tab*) 75 mcg PO 0600 [facility] Last Admin: 12/04/17 05:50 Dose: 75 mcg Lisinopril (Prinivil Tab*) 10 mg PO DAILY [facility] Last Admin: 12/04/17 11:46 Dose: 10 mg Mometasone Furoate/Formoterol Fumar (Dulera 200/5 Mdi*) 2 puff INH BID [facility] Last Admin: 12/04/17 20:45 Dose: 2 puff Montelukast Sodium (Singulair Tab*) 10 mg PO DAILY [facility] Last Admin: 12/04/17 11:46 Dose: 10 mg Ondansetron HCl (Zofran Inj*) 4 mg IV Q6H PRN PRN Reason: NAUSEA Oxycodone/Acetaminophen (Percocet 5/325 Tab*) 1 tab PO TID PRN PRN Reason: PAIN Last Admin: 12/04/17 14:55 Dose: 1 tab Prednisone (Deltasone Tab*) 60 mg PO BEDTIME [facility] Last Admin: 12/04/17 19:57 Dose: 60 mg Sertraline HCl (Zoloft*) 200 mg PO DAILY [facility] Last Admin: 12/04/17 11:46 Dose: 200 mg Vital Signs - 8 hr 12/04/17 12/04/17 12/04/17 14:55 15:05 15:22 Temperature 97.5 F Pulse Rate 86 91 Respiratory 20 14 16 Rate Blood Pressure 136/79 (mmHg) O2 Sat by Pulse 98 93 Oximetry 12/04/17 16:56 Temperature Pulse Rate Respiratory 18 Rate Blood Pressure (mmHg) O2 Sat by Pulse Oximetry Oxygen Devices in Use Now: None Appearance: NAD but occasionally almost tearful/anxious Eyes: No Scleral Icterus, PERRLA Ears/Nose/Mouth/Throat: NL Teeth, Lips, Gums Neck: NL Appearance and Movements; NL JVP Respiratory: Symmetrical Chest Expansion and Respiratory Effort Cardiovascular: NL Sounds; No Murmurs; No JVD, RRR Abdominal: NL Sounds; No Tenderness; No Distention, No Hepatosplenomegaly Extremities: No Edema, No Clubbing, Cyanosis Skin: No Rash or Ulcers, No Nodules or Sclerosis Neurological: Alert and Oriented x 3 Nutrition: Taking PO's Result Diagrams: 12/04/17 05:13 12/03/17 15:33 Additional Lab and Data: Laboratory Results - last 24 hr 12/04/17 12/04/17 12/04/17 01:31 01:31 05:13 WBC 7.3 RBC 3.89 L Hgb 11.7 L Hct 35 MCV 91 MCH 30 MCHC 33 RDW 13 Plt Count 144 L MPV 8 Neut % (Auto) 83.4 H Lymph % (Auto) 11.8 L [place] % (Auto) 4.7 Eos % (Auto) 0 Baso % (Auto) 0.1 Absolute Neuts (auto) 6.1 Absolute Lymphs (auto) 0.9 L Absolute Monos (auto) 0.3 Absolute Eos (auto) 0 Absolute Basos (auto) 0 Absolute Nucleated RBC 0 Nucleated RBC % 0 APTT 113.8 H* Troponin I 1.06 H* 12/04/17 11:27 WBC RBC Hgb Hct MCV MCH MCHC RDW Plt Count MPV Neut % (Auto) Lymph % (Auto) [place] % (Auto) Eos % (Auto) Baso % (Auto) Absolute Neuts (auto) Absolute Lymphs (auto) Absolute Monos (auto) Absolute Eos (auto) Absolute Basos (auto) Absolute Nucleated RBC Nucleated RBC % APTT 37.8 H Troponin I Microbiology and Other Data: Microbiology 12/02/17 21:32 Blood Venous Aerobic Blood Culture - Preliminary No Growth Day 2 12/02/17 21:32 Blood Venous Anaerobic Blood Culture - Preliminary No Growth Day 2 12/02/17 21:32 Blood Venous Aerobic Blood Culture - Preliminary No Growth Day 2 12/02/17 21:32 Blood Venous Anaerobic Blood Culture - Preliminary No Growth Day 2 12/03/17 23:25 Sputum Expectorated Gram Stain - Final 12/03/17 23:25 Sputum Expectorated Sputum Culture - Preliminary No Growth Day 1 12/02/17 22:43 Urine Urine Culture - Preliminary Klebsiella Pneumoniae 12/03/17 02:30 Urine Legionella Urinary Antigen - Final Negative Legionella 12/03/17 02:30 Urine Streptococcus pneumoniae Ag Screen - Final Negative S. pneumo Antigen 12/02/17 21:38 Nasopharyngeal Influenza Types A,B Antigen (LAUREN) - Final Specimen received for Influenza A/B Molecular testing Assess/Plan/Problems-Billing Assessment: 62 y/o female vasculopath (s/p fem/pop bypass and celiac & SMA stents, COPD, stress incontinence, p/w AMS, calf pain. NSTEMI with postive anteroseptal infarct on stress. planned C 12/[address] Kuhn. Klebsiella pna UTI. - Patient Problems (1) NSTEMI (non-ST elevated myocardial infarction) Current Visit: Yes Status: Acute Code(s): I21.4 - NON-ST ELEVATION (NSTEMI) MYOCARDIAL INFARCTION SNOMED Code(s): 611142076 Comment: trop peaked 1.15, ECHO ef 55-60%, moderte aortic stenosis anteroseptal infarct on nuclear stress. [facility] 12/05 vasculopath. (2) Altered mental status Current Visit: Yes Status: Acute Priority: High Onset Date: 02/15/15 Code(s): R41.82 - ALTERED MENTAL STATUS, UNSPECIFIED SNOMED Code(s): 146527427 Comment: suspect 2/2 UTI. continue ceftriaxone for now, may be resistant ampc f/u cultures. (3) PVD (peripheral vascular disease) Current Visit: Yes Status: Acute Priority: High Code(s): I73.9 - PERIPHERAL VASCULAR DISEASE, UNSPECIFIED SNOMED Code(s): 144911237 Comment: continue statin, asa and plavix (4) Dyslipidemia Current Visit: No Status: Chronic Priority: Medium Code(s): E78.5 - HYPERLIPIDEMIA, UNSPECIFIED SNOMED Code(s): 269916036 Comment: statin. fasting lipid panel in AM, none in system (5) SIRS (systemic inflammatory response syndrome) Current Visit: No Status: Acute Priority: High Onset Date: 02/15/15 Code (s): R65.10 - SIRS OF NON-INFECTIOUS ORIGIN W/O ACUTE ORGAN DYSFUNCTION SNOMED Code(s): 977177309 (6) History of COPD Current Visit: No Status: Chronic Priority: Medium Code(s): Z87.09 - PERSONAL HISTORY OF OTHER DISEASES OF THE RESPIRATORY SYSTEM SNOMED Code(s): 220481965 Comment: continue dulera, duonebs, singular prednisone taper. azithromycin , cftx Status and Disposition: medicine inpatient. Attending: Fredy Rajput
[2017-12-05] MEDS ORDERED: cefTRIAXone VIAL(*) 1,000 MG in D5W 50 ML BAG* 50 ML IVPB SCH (01:00)
[2017-12-05] MEDS: Azithromycin IV(*) 500 MG in NS 0.9% 250 ML* 250 ML IVPB SCH (01:37)
[2017-12-05] MEDS: oxyCODONE/Acetamin 5/325 MG* TAB PO PRN ×2 (05:48→17:52)
[2017-12-05 05:50] LABS: ABS Basophils 0 10^3/ul (0-0.2); ABS Eosinophils 0 10^3/ul (0-0.6); ABS Lymphocytes 0.7 10^3/ul (1.0-4.8); ABS Monocytes 0.2 10^3/ul (0-0.8); ABS Neutrophils 6.6 10^3/ul (1.5-7.7); ABS Nucleated RBC 0 10^3/ul; Eosinophil % 0 % (0-6); Hematocrit 35 % (35-47); Hemoglobin 11.8 g/dl (12.0-16.0); Lymphocyte % 9.3 % (25-47); Mean Corpuscular HGB Conc 33 g/dl (31-36); Mean Corpuscular Hemoglobin 30 pg (27-31); Mean Corpuscular Volume 90 fL (80-97); Mean Platelet Volume 8 um3 (7.4-10.4); Nucleated Red Blood Cells % 0; Platelet Count 187 10^3/ul (150-450); Red Blood Count 3.92 10^6/ul (4.0-5.4); Red Cell Distribution Width 13 % (10.5-15); White Blood Count 7.6 10^3/ul (3.5-10.8)
[2017-12-05] MEDS: Levothyroxine TAB* 75 MCG TAB PO SCH (05:50)
[2017-12-05 06:03] LABS: EGFR Non-African American 95.1 (>60)
[2017-12-05 06:58] LABS: INR 0.89 (0.77-1.02)
[2017-12-05] MEDS ORDERED: NS 0.9% 1000 ML* 1,000 ML IV SCH ×2 (07:00→11:30)
[2017-12-05] MEDS: Albuterol 2.5 MG/3 ML NEB.SOL* (0.083%) INH PRN (08:21)
[2017-12-05] MEDS: Mometasone/Formoter 200/5 MDI INH SCH ×2 (08:22→20:12)
[2017-12-05] MEDS: Sertraline* 100 MG TAB PO SCH (08:46)
[2017-12-05] MEDS: Atorvastatin* 20 MG TAB PO SCH (08:47)
[2017-12-05] MEDS: Clopidogrel TAB* 75 MG PO SCH (08:47)
[2017-12-05] MEDS: Aspirin EC TAB* 325 MG PO SCH (08:47)
[2017-12-05] MEDS: Montelukast Sodium TAB* 10 MG PO SCH (08:47)
[2017-12-05] MEDS: Lisinopril TAB* 10 MG PO SCH (08:47)
[2017-12-05] MEDS: Levofloxacin 750 MG IVPREMIX(* 750 MG/150 ML BAG IVPB SCH ×2 (08:54→13:44)
[2017-12-05] MEDS ORDERED: Lidocaine 1% INJ* 10 MG/ML 30 ML SDV ONE ×2 (09:22→09:35)
[2017-12-05] MEDS ORDERED: nitroGLYCERIN DRIP* 25,000 MCG/250 ML BTL ONE (09:22)
[2017-12-05] MEDS ORDERED: fentaNYL* 50 MCG/ML 2 ML VIAL (100 MCG VIAL) ONE (09:22)
[2017-12-05] MEDS ORDERED: Heparin(*) 1000 UNIT/ML 10 ML VIAL CATH LAB IV ONE (09:22)
[2017-12-05] MEDS ORDERED: Heparin 2 UNITS/ML IVPREMIX* 2,000 ML IV ONE (09:22)
[2017-12-05] MEDS ORDERED: Iohexol 350 (CONTRAST) 200 ML MDV IV ONE ×2 (09:23→10:38)
[2017-12-05] MEDS ORDERED: Midazolam* 1 MG/ML 10 ML VIAL (10 MG) ONE (09:41)
[2017-12-05] MEDS ORDERED: VERAPAMIL 2.5 MG/ML 2 ML VIAL ** 5 mg/2 ml ONE (09:42)
[2017-12-05] MEDS ORDERED: Aspirin EC TAB* 325 MG PO SCH (11:14)
[2017-12-05] MEDS ORDERED: Nitroglycerin TAB 0.4 MG* 0.4 MG TAB SL PRN (11:19)
[2017-12-05] MEDS ORDERED: Atorvastatin* 80 MG TAB PO SCH (11:25)
--- NOTE | 2017-12-05 16:48 | PN ---
Subjective Date of Service: 12/05/17 Interval History: s/p [facility] w/ Dr. Kuhn, two severe LAD stenoses stented (ANNE). had spasm of severe chest pain on the table. no current complaints, relieved it is over. ESBL Klebsiella in UCx, 1+ Ecoli in sputum. Now on levaquin. Objective Active Medications: Acetaminophen (Tylenol Tab*) 650 mg PO Q4H PRN PRN Reason: FEVER/PAIN Albuterol (Ventolin 2.5 Mg/3 Ml Neb.Griselda*) 2.5 mg INH Q2H PRN PRN Reason: SOB/WHEEZING Last Admin: 12/05/17 08:21 Dose: 2.5 mg Albuterol (Ventolin Hfa Inhaler*) 2 puff INH Q4H PRN PRN Reason: SOB/WHEEZING Last Admin: 12/05/17 05:44 Dose: 2 puff Alprazolam (Xanax Tab*) 0.25 mg PO Q6H PRN PRN Reason: ANXIETY Last Admin: 12/04/17 22:40 Dose: 0.25 mg Aspirin (Ecotrin Ec Tab*) 81 mg PO DAILY [facility] Atorvastatin Calcium (Lipitor*) 80 mg PO DAILY [facility] PRN Reason: Protocol Clopidogrel Bisulfate (Plavix Tab*) 75 mg PO DAILY [facility] Last Admin: 12/05/17 08:47 Dose: 75 mg Cyclobenzaprine HCl (Flexeril Tab*) 10 mg PO TID PRN PRN Reason: SPASMS Levofloxacin/Dextrose (Levaquin 750 Mg Ivpremix(*)) 750 mg in 150 mls @ 100 mls /hr IVPB Q24H [facility] Last Admin: 12/05/17 13:44 Dose: 100 mls/hr Sodium Chloride (Ns 0.9% 1000 Ml*) 1,000 mls @ 100 mls/hr IV .per rate [facility] Stop: 12/05/17 17:29 Levothyroxine Sodium (Synthroid Tab*) 75 mcg PO 0600 [facility] Last Admin: 12/05/17 05:50 Dose: 75 mcg Lisinopril (Prinivil Tab*) 10 mg PO DAILY [facility] Last Admin: 12/05/17 08:47 Dose: 10 mg Mometasone Furoate/Formoterol Fumar (Dulera 200/5 Mdi*) 2 puff INH BID [facility] Last Admin: 12/05/17 08:22 Dose: 2 puff Montelukast Sodium (Singulair Tab*) 10 mg PO DAILY [facility] Last Admin: 12/05/17 08:47 Dose: 10 mg Nitroglycerin (Nitroglycerin Tab 0.4 Mg*) 0.4 mg SL Q5M PRN PRN Reason: ANGINA Ondansetron HCl (Zofran Inj*) 4 mg IV Q6H PRN PRN Reason: NAUSEA Oxycodone/Acetaminophen (Percocet 5/325 Tab*) 1 tab PO TID PRN PRN Reason: PAIN Last Admin: 12/05/17 05:48 Dose: 1 tab Prednisone (Deltasone Tab*) 60 mg PO BEDTIME [facility] Last Admin: 12/04/17 19:57 Dose: 60 mg Sertraline HCl (Zoloft*) 200 mg PO DAILY [facility] Last Admin: 12/05/17 08:46 Dose: 200 mg Vital Signs - 8 hr 12/05/17 12/05/17 12/05/17 08:44 11:23 11:30 Temperature Pulse Rate 88 85 Respiratory 19 15 Rate Blood Pressure 142/92 140/85 (mmHg) O2 Sat by Pulse 94 92 92 Oximetry 12/05/17 12/05/17 12/05/17 11:45 11:57 12:00 Temperature 98.7 F Pulse Rate 89 82 85 Respiratory 18 17 15 Rate Blood Pressure 137/88 140/85 146/89 (mmHg) O2 Sat by Pulse 96 97 95 Oximetry 12/05/17 12/05/17 12/05/17 12:04 12:15 12:30 Temperature Pulse Rate 82 80 Respiratory 16 16 Rate Blood Pressure 156/88 156/88 161/88 (mmHg) O2 Sat by Pulse 96 97 Oximetry 12/05/17 12/05/17 12/05/17 12:34 12:45 13:00 Temperature 98.0 F Pulse Rate 91 89 Respiratory 19 15 Rate Blood Pressure 154/94 151/88 (mmHg) O2 Sat by Pulse 96 96 Oximetry 12/05/17 12/05/17 12/05/17 13:06 13:15 13:30 Temperature 98.0 F Pulse Rate 93 92 Respiratory 18 17 Rate Blood Pressure 137/95 152/85 (mmHg) O2 Sat by Pulse 96 96 Oximetry 12/05/17 12/05/17 12/05/17 13:45 14:00 14:15 Temperature Pulse Rate 88 86 85 Respiratory 17 15 16 Rate Blood Pressure 153/86 153/90 159/91 (mmHg) O2 Sat by Pulse 97 96 98 Oximetry 12/05/17 12/05/17 12/05/17 14:30 14:45 15:00 Temperature Pulse Rate 89 84 109 Respiratory 17 19 27 Rate Blood Pressure 155/99 151/97 (mmHg) O2 Sat by Pulse 96 96 96 Oximetry 12/05/17 12/05/17 12/05/17 15:01 15:15 15:30 Temperature Pulse Rate 108 86 85 Respiratory 24 24 15 Rate Blood Pressure 148/97 156/88 155/94 (mmHg) O2 Sat by Pulse 96 97 97 Oximetry 12/05/17 12/05/17 12/05/17 15:45 16:00 16:15 Temperature Pulse Rate 84 82 81 Respiratory 15 17 15 Rate Blood Pressure 156/97 159/94 151/86 (mmHg) O2 Sat by Pulse 98 99 98 Oximetry Oxygen Devices in Use Now: Nasal Cannula Appearance: NAD Eyes: No Scleral Icterus, PERRLA Ears/Nose/Mouth/Throat: NL Teeth, Lips, Gums, Mucous Membranes Moist Neck: NL Appearance and Movements; NL JVP Respiratory: Symmetrical Chest Expansion and Respiratory Effort Cardiovascular: NL Sounds; No Murmurs; No JVD, RRR Extremities: No Edema, No Clubbing, Cyanosis Skin: No Rash or Ulcers, No Nodules or Sclerosis Neurological: Alert and Oriented x 3, NL Sensation, NL Muscle Strength and Tone Nutrition: Taking PO's Result Diagrams: 12/05/17 05:37 12/05/17 05:37 Additional Lab and Data: Laboratory Results - last 24 hr 12/05/17 12/05/17 12/05/17 05:37 05:37 06:40 WBC 7.6 RBC 3.92 L Hgb 11.8 L Hct 35 MCV 90 MCH 30 MCHC 33 RDW 13 Plt Count 187 MPV 8 Neut % (Auto) 87.4 H Lymph % (Auto) 9.3 L Martin % (Auto) 3.2 Eos % (Auto) 0 Baso % (Auto) 0.1 Absolute Neuts (auto) 6.6 Absolute Lymphs (auto) 0.7 L Absolute Monos (auto) 0.2 Absolute Eos (auto) 0 Absolute Basos (auto) 0 Absolute Nucleated RBC 0 Nucleated RBC % 0 INR (Anticoag Therapy) 0.89 Sodium 138 Potassium 4.0 Chloride 104 Carbon Dioxide 27 Anion Gap 7 BUN 11 Creatinine 0.63 Est GFR ( Amer) 122.4 Est GFR (Non-Af Amer) 95.1 BUN/Creatinine Ratio 17.5 Glucose 159 H Calcium 9.0 Triglycerides 90 Cholesterol 151 LDL Cholesterol 85 HDL Cholesterol 47.6 Microbiology and Other Data: Microbiology 12/03/17 23:25 Sputum Expectorated Gram Stain - Final 12/03/17 23:25 Sputum Expectorated Sputum Culture - Preliminary Escherichia Coli YEAST 12/02/17 22:43 Urine Urine Culture - Final Esbl Klebsiella Pneumoniae 12/02/17 21:32 Blood Venous Aerobic Blood Culture - Preliminary No Growth Day 2 12/02/17 21:32 Blood Venous Anaerobic Blood Culture - Preliminary No Growth Day 2 12/02/17 21:32 Blood Venous Aerobic Blood Culture - Preliminary No Growth Day 2 12/02/17 21:32 Blood Venous Anaerobic Blood Culture - Preliminary No Growth Day 2 12/03/17 02:30 Urine Legionella Urinary Antigen - Final Negative Legionella 12/03/17 02:30 Urine Streptococcus pneumoniae Ag Screen - Final Negative S. pneumo Antigen 12/02/17 21:38 Nasopharyngeal Influenza Types A,B Antigen (LAUREN) - Final Specimen received for Influenza A/B Molecular testing Assess/Plan/Problems-Billing Assessment: 62 y/o female vasculopath (s/p fem/pop bypass and celiac & SMA stents, COPD, stress incontinence, p/w AMS, calf pain. NSTEMI with positive anteroseptal infarct on stress. s/p [facility] 12/[address] Kuhn. 2 stents to LAD. ESBL Klebsiella pna UTI. Ecoli in sputum. Levquin. - Patient Problems (1) NSTEMI (non-ST elevated myocardial infarction) Current Visit: Yes Status: Acute Code(s): I21.4 - NON-ST ELEVATION (NSTEMI) MYOCARDIAL INFARCTION SNOMED Code(s): 669695540 Comment: trop peaked 1.15, ECHO ef 55-60%, moderte aortic stenosis anteroseptal infarct on nuclear stress. [facility] 12/05 -> 2 LAD stents. Plavix, aspirin. vasculopath. (2) Altered mental status Current Visit: Yes Status: Acute Priority: High Onset Date: 02/15/15 Code(s): R41.82 - ALTERED MENTAL STATUS, UNSPECIFIED SNOMED Code(s): 347089960 Comment: suspect 2/2 Klebsiella (ESBL) UTI. Ecoli in sputum. resolved. (3) PVD (peripheral vascular disease) Current Visit: Yes Status: Acute Priority: High Code(s): I73.9 - PERIPHERAL VASCULAR DISEASE, UNSPECIFIED SNOMED Code(s): 099191835 Comment: continue statin, asa and plavix (4) Dyslipidemia Current Visit: No Status: Chronic Priority: Medium Code(s): E78.5 - HYPERLIPIDEMIA, UNSPECIFIED SNOMED Code(s): 992981391 Comment: statin. 12/05/17: LDL 85, HDL 47. (5) SIRS (systemic inflammatory response syndrome) Current Visit: No Status: Acute Priority: High Onset Date: 02/15/15 Code (s): R65.10 - SIRS OF NON-INFECTIOUS ORIGIN W/O ACUTE ORGAN DYSFUNCTION SNOMED Code(s): 957735062 Comment: 2/2 UTI, pna. (6) History of COPD Current Visit: No Status: Chronic Priority: Medium Code(s): Z87.09 - PERSONAL HISTORY OF OTHER DISEASES OF THE RESPIRATORY SYSTEM SNOMED Code(s): 374954525 Comment: continue dulera, duonebs, singular prednisone taper off. on levaquin. Status and Disposition: medicine inpatient. d/c 12/06 on levaquin. to home. Attending: Fredy Rajput
[2017-12-05] MEDS ORDERED: amLODIPine TAB* 5 MG PO ONE (18:00)
[2017-12-05] MEDS: predniSONE TAB* 20 MG PO SCH (20:49)
[2017-12-05] MEDS: ALPRAZolam TAB* 0.25 MG PO PRN (21:43)
[2017-12-06] MEDS: Albuterol 2.5 MG/3 ML NEB.SOL* (0.083%) INH PRN (01:57)
[2017-12-06] MEDS: Levothyroxine TAB* 75 MCG TAB PO SCH (05:37)
[2017-12-06] MEDS: oxyCODONE/Acetamin 5/325 MG* TAB PO PRN ×2 (06:43→10:49)
[2017-12-06 06:44] LABS: ABS Basophils 0 10^3/ul (0-0.2); ABS Eosinophils 0 10^3/ul (0-0.6); ABS Lymphocytes 0.9 10^3/ul (1.0-4.8); ABS Monocytes 0.3 10^3/ul (0-0.8); ABS Neutrophils 7.2 10^3/ul (1.5-7.7); ABS Nucleated RBC 0 10^3/ul; Eosinophil % 0 % (0-6); Hematocrit 36 % (35-47); Mean Corpuscular HGB Conc 33 g/dl (31-36); Mean Corpuscular Hemoglobin 30 pg (27-31); Mean Corpuscular Volume 90 fL (80-97); Mean Platelet Volume 9 um3 (7.4-10.4); Nucleated Red Blood Cells % 0; Platelet Count 208 10^3/ul (150-450); Red Blood Count 4.01 10^6/ul (4.0-5.4); Red Cell Distribution Width 13 % (10.5-15); White Blood Count 8.4 10^3/ul (3.5-10.8)
[2017-12-06 06:50] LABS: EGFR Non-African American 84.2 (>60)
[2017-12-06] MEDS: Mometasone/Formoter 200/5 MDI INH SCH (08:45)
[2017-12-06] MEDS: Levofloxacin 750 MG IVPREMIX(* 750 MG/150 ML BAG IVPB SCH (09:00)
[2017-12-06] MEDS ORDERED: Aspirin EC Low Dose* 81 MG TAB.EC PO SCH (09:00)
[2017-12-06] MEDS: Sertraline* 100 MG TAB PO SCH (09:05)
[2017-12-06] MEDS: Clopidogrel TAB* 75 MG PO SCH (09:06)
[2017-12-06] MEDS: Montelukast Sodium TAB* 10 MG PO SCH (09:06)
[2017-12-06] MEDS: Lisinopril TAB* 10 MG PO SCH (09:06)
--- NOTE | 2017-12-06 11:35 | CATH ---
CC: Dr. Parmar; Dr. Elizabeth * STENT REPORT: DATE OF PROCEDURE: 12/05/17 - ROOM #ICU-12 PRIMARY: Dr. Parmar. CUSTOMER OPERATIONS INTERN: Dr. Elizabeth. PROCEDURES: Right radial artery access, bilateral selective coronary cineangiography, stent placement LAD, 2.75 x 28 Synergy drug-eluting stent. HISTORY: A 62-year-old woman with PAD, status post bilateral fem-pop bypass and previous visceral artery stenting, presenting with a type 2 infarct in the setting of hypoxemia. Stress imaging showed an LAD distribution area of ischemia. She was referred for catheterization. PROCEDURE ACCESS: Right radial artery. SHEATH: 6F slender. MEDICATIONS: 1. Subcu lidocaine. 2. IV Versed. 3. IV fentanyl. 4. Heparin 3000 units. 5. Verapamil 3 mg. 6. Nitroglycerin 300 mcg IA. 7. Heparin 4000 units IV. DIAGNOSTIC CATHETER: 5F TIG4, 5FL3.5. GUIDING CATHETER: LAD 6FVL3.5, wire 14 BMW. Proximal LAD was pre-dilated with a 2.75 x 20 mm balloon, which straddled both lesions. It was then stented with a 2.75 x 28 Synergy drug-eluting stent deployed at 11 atmospheres 11 seconds, and then post-dilated with overlapping dilatations with a 2.75 x 20 NC balloon to 18 atmospheres for 30 seconds x2. HEMODYNAMICS: Initial BP 170/101, final BP 134/85. ANGIOGRAPHY: Left main: The left main is large, has no stenosis. LAD: The LAD is extremely tortuous, has proximal calcification, has a proximal 90% stenosis which is quite short, then supplies the first diagonal after which the LAD has a discrete 90% stenosis at the septal sock drier, this is followed by a moderate second diagonal branch. The stent deployment and assessment required flipping back and forth between two different angiographic projections to see the proximal as well as the more distal proximal LAD lesion. Circumflex: The circumflex is not dominant, is moderate in size with essentially a single marginal branch which covers the entire obtuse margin. Circumflex has mild luminal irregularity but no significant stenosis. RCA: The RCA is dominant, moderate, has a prominent acute marginal branch which actually supplies the distal inferior septum, it's PDA is less than 1.5 mm in diameter, has a long tubular proximal 80% to 90% stenosis, is too small for revascularization. The RCA continuation supplies a miniscule PDA and small posterolateral. After LAD stent deployment and post-dilatation, there is no dissection, antegrade flow is RINA-3, there is no loss of side branches. The left main was not jeopardized. CONCLUSION: 1. Two-vessel disease LAD and RPDA of the acute marginal branch. The RPDA is too small for intervention, will be treated medically. 2. Excellent angiographic result with drug-eluting stent placement proximal LAD. 3. Successful right radial artery access. [id number]/[facility] #: [id number] [facility] H[facility]PITALIfeanyi
[2017-12-06 12:52] VITALS: BP 165/102
--- NOTE | 2017-12-07 22:33 | DS ---
DISCHARGE SUMMARY: DATE OF ADMISSION: 12/03/17 DATE OF DISCHARGE: 12/06/17 ADMITTING PROVIDER: Jorden Evans NP PRIMARY CARE PROVIDER: Dr. Parmar. ATTENDING PHYSICIAN: Fredy Rajput MD CHIEF COMPLAINT: Altered mental status. PRINCIPAL DIAGNOSES: 1. Non-ST elevation myocardial infarction, status post 2 drug-eluting LAD stents. 2. ESBL Klebsiella pneumoniae urinary tract infection. HISTORY OF PRESENT ILLNESS AND HOSPITAL COURSE: Linda Jiménez is a 62-year-old female with past medical history significant for celiac and SMA arteries, hypertension, COPD, peripheral vascular disease, chronic pain, arthritis, hypothyroidism, hyperlipidemia, depression with a chief complaint initially of right leg and the calf pain associated with swelling. The daughter had noticed that the patient seemed to be confused when the patient's daughter had returned from a shopping trip. She was noted to be hypoxic on room air and required supplemental oxygen. She was satting 94% on 3 L in the emergency room. She was tachycardic at 112. Initial white count 9.8. Urinalysis showed trace leukocyte esterase and 2+ white blood cells, positive urine bacteria. Hypoxia, altered mental status (the patient already had a brain CT in the ED showing no intracranial abnormality and chest x-ray showing nothing acute). She had a CT angiogram of the chest to rule out pulmonary embolism, there was no evidence of a PE. There was a small right lower lobe infiltrate and stable pulmonary nodules. She was started empirically on azithromycin and ceftriaxone for concern for pneumonia versus COPD exacerbation. She was continued on Dulera while in-house with nebs standing. She was given a taper of steroids in the hospital. Her initial troponin was 0.01, ann to 0.04, and then 0.05 on hospital day #2 morning. The patient then had a repeat troponin at 0.96, started on heparin drip. Cardiology was consulted. She has already had an echocardiogram on admission which showed ejection fraction of 55% to 60%, notable for moderate aortic stenosis. She had a nuclear stress test on 12/04/17 , which was obtained for infarction in the anterior septal wall with moderate fadia-infarct ischemia. Her troponins peaked at 1.15. She was taken to the carpenter/labor with Dr. Kuhn on 12/05/17, which showed 2- vessel disease of LAD and RPDA of the acute marginal branch. RPDA was too small for intervention. She received 2 drug-eluting stents to the proximal LAD with excellent angiographic result, access through the right medial approach. She was monitored in the ICU 1 more day and has had no further complications. Urine culture had ultimately grown ESBL Klebsiella pneumoniae greater than 100, 000 units and her ceftriaxone was stopped due to resistance. She was transitioned to Levaquin, which she will continue as an outpatient. She also had 1+ E. coli on sputum culture. DISCHARGE MEDICATIONS: Include: 1. Albuterol 2.5mg/3 mL (Ventoli) nebulizer inh q6h prn (new NEBULIZER form). 2. Aspirin 81 mg daily. 3. Metoprolol succinate 25 mg p.o. daily (new). 4. Nitroglycerin 0.4 mg sublingual q.5 minutes p.r.n. 5. Alprazolam 0.25 mg p.o. q.6 hours p.r.n. anxiety. 6. Symbicort 2 puffs inhaled b.i.d. 7. Plavix 75 mg p.o. daily. 8. Flexeril 10 mg p.o. t.i.d. p.r.n. 9. Gabapentin 400 mg p.o. t.i.d. 12. Synthroid 75 mcg. 13. Lisinopril 10 mg p.o. daily. 14. Metoprolol succinate 25 mg p.o. daily. 15. Singulair 10 mg p.o. daily. 16. Percocet 1 tab p.o. t.i.d. p.r.n. 17. Prednisone 20 mg tabs with a taper to 20 mg x4 days. 18. Crestor 20 mg p.o. daily (this is an increased dose per Dr. Kuhn). 19. Sertraline (Zoloft) 200 mg p.o. daily. 20. Tiotropium (Spiriva) 1 capsule inhaled daily. DIET: Heart healthy. ACTIVITY: Avoid flexing of the right wrist for 3 days. FOLLOWUP: Please follow up with Dr. Parmar, primary care physician, within 5 days of discharge. The patient was also advised to see a urologist and referral was given to Dr. Zimmerman to discuss potential urinary stress incontinence symptoms that may be contributing to her urinary tract infections 2 /2 stasis of urine. TIME SPENT: 35 minutes. [id number]/[facility] #: [id number] [facility]
== END 2017-12-06 12:58 | disposition home or self-care (01) | DRG 246 ==
LOC: ED 19:53 → MEDTELE 12-03 00:37 → OBSVTOIN 12-03 12:55 → ICU 12-05 11:55
PROVIDERS: ADMIT Hospitalist; ATTEND Internal Medicine
PROC: 4A023N7 Measurement of Cardiac Sampling and Pressure, Left Heart, Percutaneous Approach (ICD-10-PCS; principal; 2017-12-04)
PROC: 027035Z Dilation of Coronary Artery, One Artery with Two Drug-eluting Intraluminal Devices, Percutaneous Approach (ICD-10-PCS; 2017-12-04)
PROC: B2111ZZ Fluoroscopy of Multiple Coronary Arteries using Low Osmolar Contrast (ICD-10-PCS; 2017-12-04)
PROC: 4A12XM4 Monitoring of Cardiac Stress, External Approach (ICD-10-PCS; 2017-12-04)
DX: I21.A1 Myocardial infarction type 2 (principal); J18.9 Pneumonia, unspecified organism; Z99.81 Dependence on supplemental oxygen; J44.0 Chronic obstructive pulmonary disease with (acute) lower respiratory infection; J44.1 Chronic obstructive pulmonary disease with (acute) exacerbation; N39.0 Urinary tract infection, site not specified; B96.1 Klebsiella pneumoniae [K. pneumoniae] as the cause of diseases classified elsewhere; I73.9 Peripheral vascular disease, unspecified; I10 Essential (primary) hypertension; G89.29 Other chronic pain; M19.90 Unspecified osteoarthritis, unspecified site; E03.9 Hypothyroidism, unspecified; E78.5 Hyperlipidemia, unspecified; F32.9 Major depressive disorder, single episode, unspecified; R91.8 Other nonspecific abnormal finding of lung field; I25.10 Atherosclerotic heart disease of native coronary artery without angina pectoris; R09.02 Hypoxemia; F17.200 Nicotine dependence, unspecified, uncomplicated; I35.0 Nonrheumatic aortic (valve) stenosis; Z16.29 Resistance to other single specified antibiotic; B96.20 Unspecified Escherichia coli [E. coli] as the cause of diseases classified elsewhere; Z79.82 Long term (current) use of aspirin; Z79.52 Long term (current) use of systemic steroids; Z79.02 Long term (current) use of antithrombotics/antiplatelets; Z86.718 Personal history of other venous thrombosis and embolism; Z87.440 Personal history of urinary (tract) infections; M50.30 Other cervical disc degeneration, unspecified cervical region; F41.9 Anxiety disorder, unspecified; N39.3 Stress incontinence (female) (male)
CPT/HCPCS: 36415; 36600; 70450; 71045; 71275; 78452; 80048; 80053; 80061; 80307; 81003; 81015; 82550; 82803; 83605; 84484; 85025; 85610; 85730; 86140; 87040; 87070; 87077; 87086; 87186; 87205; 87502; 87899; 93005; 93017; 93306; 93454; 94640; 94760; 99156; 99157; 99285; A9270-GY; A9502; C1725; C1769; C1887; C8929; C9600-LD; J0280; J0456; J0696; J1644; J2250; J2785; J3010; J3370; J7512; Q9967

== ENCOUNTER 2017-12-18 20:09 | Emergency (ER) | payer MEDICARE ==
--- OUTSIDE RECORDS SUMMARY | 2017-12-18 21:30 | XMS REPORT ---
:1955 External Reference #:[id number] Author Organization [facility] Address [address] [facility] [address] [place] [address] Phone [phone] Care Team Providers Name Role Phone Miguel Parmar MD Care Team Information Sheriff Detective Unavailable Miguel Parmar MD Primary Care Physician Unavailable Payers Type Date Identification Numbers Payment Provider Subscriber Medicare Primary Effective: Policy Number: Medicare Linda Jiménez 2013 [id number] PayID: [id number] [address] [place] [address] Workers Expires: Policy Number: Alexandru Jiménez Compensation 2016 [id number] [place] Onset: 2010 PayID: [id number] [address] [address] [place] [address] Workers Expires: Policy Number: Alexandru Jiménez Compensation 2016 [id number] [place] Onset: 2010 Group Name: Ortho [address] PayID: MARY Brasher [id number] Commercial Effective: 2016 Policy Number: [facility] Linda Jiménez [id number] Expires: 2018 Group Number: 80% [address] [facility] PayID: [id number] [address] Problems Date Description Provider Status Onset: 10/28/2013 Cervical spondylosis without myelopathy Abdias Brannon M.D. Active Family History Date Family Member(s) Problem(s) Comments General Diabetes General Heart Disease General Hypertension General Stroke Father [place] Social History Type Date Description Comments Marital Status Single Lives With Daughter Occupation Unemployed Cigarette Use Former Cigarette Smoker Smoked for 50+years PPD, quit 2013 ETOH Use Denies alcohol use ETOH Use Has consumed alcohol in the History of alcohol abuse past Smoking Patient is a former smoker quit in April 2014, smoked for 46 years 1 ppd Recreational Drug Use Former Drug User History of marijuana use Daily Caffeine Does Not Consume Caffeine Exercise Type/Frequency Does not exercise General Hx Text Daughter, Yaima, is surrogate decision maker. Allergies, Adverse Reactions, Alerts Date Description Reaction Status Severity Comments 07/31/2013 NKDA active Medications Medication Date Status Form Strength Qnty SIG Indications Ordering Provider Crestor 04/02 Active Tablets 10mg 90tab 2 by mouth 411.1 Alex /2014 s every day Guera Elizabeth M.D. Lisinopril Active Tablets 10mg 90tab 1 po qd Midura, s MD Miguel Symbicort Active Aerosol 80-4.5mcg 2 puffs bid Midura, / /Act rinse mouth MD Miguel after using Sertraline HCL Active Tablets 100mg 30tab 2 po qd Midura, s MD Miguel Xanax Active Tablets 0.25mg 20tab one by Midura, s mouth up to MD Miguel three times daily as needed for anxiety Plavix Active Tablets 75mg 1 by mouth Unknown every day Cyclobenzaprine Active Tablets 10mg one by Unknown HCL / mouth two times a day as needed spasm Gabapentin Active Capsules 400mg 1 by mouth Unknown four times daily Aspirin Active Tablets DR 81mg 1 by mouth Unknown every day Oxycodone-Acetam Active Tablets 5-325mg 1 tablet po [place], inophen /0000 q 8 hrs MD aByron Montelukast Active Tablets 10mg 1 by mouth Unknown Sodium /0000 every day Metoprolol Active Tablets ER 25mg 90tab 1 by mouth Jasper S. Succinate ER /0000 24HR s every day DO Prince FACNaveen Nitrostat Active Tablets Sub 0.4mg one sl q5min up to 3 doses as needed Levothyroxine Active Tablets 75mcg 1 by mouth Unknown Sodium /0000 every day Spiriva Active Capsules 18mcg 2 puffs Unknown Handihaler /0000 twice per day Combivent 00 Active Aerosol 20-100mcg prn Unknown Respimat /0000 /Act Celebrex 07/31 Hx Capsules 200mg 30cap Take 1 721.0 s Capsule By [place], - Mouth Once M.D. 03/29 Daily. Lidoderm 09/14 Hx Patches 5% 40uni 1 patch ts apply to Kwan, - affected M.D. 07/31 area up to 12 hours per day Medrol Dosepak 09/14 Hx Tablets 4mg 1tabs follow package Kwan, - directions M.D. 07/31 take with food Oxycodone/Acetam 05/29 Hx Tablets 5-325mg 50tab 1-2 tabs po Tristen inophen s q 4 hrs prn Kwan, - pain M.D. 07/31 Cyclobenzaprine 05/29 Hx Tablets 10mg 45tab 1 tab by Tristen s mouth three , - times a day M.D. 07/31 Warfarin Sodium Hx Tablets 10mg 90tab take as Midura, /0000 s directed MD Miguel - 03/10 Atenolol 00 Hx Tablets 50mg 30tab 1 po qd Midura, /0000 s MD Miguel - 12/04 Singulair 00 Hx Tablets 10mg 30tab 1 po qd Midura, /0000 s MD Miguel - 12/04 Proair HFA 00 Hx Aerosol 108(90Bas 1unit 2 puffs po Midura, /0000 e) s q4h prn MD Miguel - mcg/Act 11/29 Veramyst 00 Hx Suspension 27.5mcg/S 10gm 2 sprays Midura, /0000 pray each MD Miguel - nostril 12/05 daily Medications Administered in Office Medication Date Status Form Strength Qnty SIG Indications Ordering Provider Depomedrol Administered Injection Tony F 40MG 016 MD Estefany Inj, Administered Injection Alex Lynne Reghakeemosnadir, 015 Yanira Elizabeth 0.1 MG Technetium TC Administered Injection Alex DMarcia 99M 015 Yanira Elizabeth Tetrofosmin, Per Unit Dose Up To 40 Millicuries Depomedrol Administered Injection Tristen 80MG 011 Yanira Bowens Depomedrol Administered Injection Tristen 80MG 011 Yanira Bowens Vital Signs Date Vital Result Comment 12/12/2017 Height 67 inches 5'7" Weight 170.00 lb Heart Rate 76 /min BP Systolic Sitting 142 mmHg Rue reg cuff BP Diastolic Sitting 102 mmHg Rue reg cuff BP Systolic Standing 134 mmHg Rue BP Diastolic Standing 94 mmHg Rue Respiratory Rate 16 /min BMI (Body Mass Index) 26.6 kg/m2 Ejection Fraction 55-60% 12/03/17 07/31/2016 Height 67 inches 5'7" Weight 169.00 lb Heart Rate 88 /min BP Systolic 119 mmHg BP Diastolic 79 mmHg Pain Level 7 BMI (Body Mass Index) 26.5 kg/m2 04/02/2015 Height 66 inches 5'6" Weight 141.31 lb without shoes Heart Rate 80 /min BP Systolic 132 mmHg Ra reg cuff BP Diastolic 90 mmHg Ra reg cuff BP Systolic Sitting 142 mmHg LA reg cuff BP Diastolic Sitting 90 mmHg LA reg cuff BP Systolic Standing 122 mmHg LA reg cuff BP Diastolic Standing 90 mmHg LA reg cuff Respiratory Rate 17 /min BMI (Body Mass Index) 22.8 kg/m2 09/11/2013 Height 66 inches 5'6" Weight 134.00 lb BP Systolic 130 mmHg BP Diastolic 82 mmHg Pain Level 5 neck BMI (Body Mass Index) 21.6 kg/m2 07/31/2013 Height 66 inches 5'6" Weight 134.00 lb BP Systolic 148 mmHg BP Diastolic 98 mmHg Pain Level 10 neck BMI (Body Mass Index) 21.6 kg/m2 12/26/2010 Height 66 inches 5'6" Weight 125.00 lb Heart Rate 82 /min BP Systolic 169 mmHg BP Diastolic 103 mmHg BMI (Body Mass Index) 20.2 kg/m2 12/19/2010 Height 65 inches 5'5" Weight 125.00 lb Heart Rate 107 /min BP Systolic 146 mmHg BP Diastolic 107 mmHg BMI (Body Mass Index) 20.8 kg/m2 Results Description No Information Procedures Date CPT Code Description Status 12/12/2017 75098 EKG Tracing & Interpretation Completed 07/31/201627162 Inject/Drain Joint/Bursa Major Completed 04/16/2015 72105 Stress Test Completed 04/16/2015 91087 Myocardial Perfusion Imaging Tomographic (Spect) Completed Multiple Studies 04/02/2015 56406 EKG Tracing & Interpretation Completed 02/16/2015 05243 EEG Recording Awake & Asleep Completed 03/09/2014 76425 ECHO Transthorasic Realtime 2D W Doppler & Color Completed Flow Hosp 05/24/201149920 Inject/Drain Joint/Bursa Major Completed 01/27/2011 66895 Arthroscopy,Shoulder Decompression Of Subacromial Space Completed W/Acromio 01/27/2011 08821 Arthroscopy,Shoulder Decompression Of Subacromial Space Completed W/Acromio 12/26/201033681 Inject/Drain Joint/Bursa Major Completed Encounters Type Date Location Provider CPT E/M Dx Office Visit 12/03/2017 [facility] Alex Elizabeth, 47030 I24.9 1:11p Rubén Doyle I35.0 [facility] [place] [address] R42 Hospitalists M54.2 G89.29 J44.9 Office Visit 07/31/2016 9:00a [facility] Tony Allison, 91475 M17.12 Rod CONDON M25.562 Office Visit 04/02/2015 4:00p [facility] Alex Elizabeth, 49813 443.9 Rubén Doyle 411.1 Office Visit 02/18/2015 7:26a [facility] Nghia Agudelo, 95850 590.80 Assoc, Hospitalists Yanira 443.9 557.9 995.90 Office Visit 02/17/2015 7:25a [facility], Suzie Barlow, 29973 590.80 Hospitalists Yanira 443.9 557.9 995.90 Office Visit 02/17/2015 9:22a [facility] Mireille Damon, 53277 590.80 Infectious Diseases Yanira V45.72 Office Visit 02/16/2015 7:25a [facility], Suzie Barlow, 09285 443.9 Hospitalists Yanira 496 995.90 780.97 Office Visit 02/16/2015 9:17a [facility] Bryant Damon, 21544 780.62 Infectious Diseases M.Guera 780.09 V45.72 791.9 305.1 443.9 Office Visit 02/15/2015 7:23a [facility], Payam Nathan, 93692 443.9 Hospitalists N.P. 496 780.97 995.90 Office Visit 01/10/2015 10:01a [facility], Kit Pan D.O. 49024 557.9 Hospitalists 557.1 458.9 286.9 Office Visit 09/11/2013 10:15a [facility] Abdias Brannon M.D. 65451 721.0 Of Chemistry Research Assistant Office Visit 07/31/2013 10:00a [facility] Abdias Brannon M.D. 86433 721.0 Of Chemistry Research Assistant 721.0 721.0 Office Visit 11/01/2011 9:00a [facility] Tristen Bowens M.D. 40722 726.2 C.M.A. Office Visit 09/14/2011 9:00a [facility] Tristen Bowens M.D. 00022 726.2 C.M.A. Office Visit 08/01/2011 11:00a [facility] Tristen Bowens M.D. 49906 726.2 C.M.A. Office Visit 06/26/2011 11:00a [facility] Tristen Bowens M.D. 37143 726.0 C.M.A. Office Visit 05/29/2011 11:00a [facility] Tristen Bowens M.D. 66929 726.0 C.M.A. Office Visit 05/24/2011 9:30a [facility] Tristen Bowens M.D. 93887 726.0 C.M.A. Office Visit 01/09/2011 9:30a [facility] Tristen Bowens M.D. 19908 726.2 C.M.A. 840.9 Office Visit 12/26/2010 11:15a [facility] Tristen Bowens M.D. 58534 726.2 C.M.A. Office Visit 12/19/2010 10:15a [facility] Tristen Bowens M.D. 80826 840.9 C.MMarciaAMarcia 719.41 Office Visit 12/05/2010 2:00p [facility] Tristen Bowens M.D. 84013 840.9 C.M.A. Office Visit 12/01/2010 1:00p [facility] Howie Boss, 73467 719.41 Rubén Doyle 305.1 Plan of Care 12/12/2017 - Jasper Morrison, DO FACCI25.10 Athscl heart disease of [place] coronary artery w/o ang pctrsComments:New evidence shows the LDL (bad cholesterol) should be much lower than we ever thought. Continue totake 20 mg of crestor for now and have Dr. Parmar forward us your next lipid panel. If you toleratethis ok, we may increase to 40 mg in the future.I think you would benefit from cardiac rehab. If you change your mind and want to attend or learn more, please let us know.Follow up:6 nrxflqK12.5 Hyperlipidemia, edvfjeahdykU68.0 Nonrheumatic aortic (valve) ubvmkfsxS13.9 Peripheral vascular disease, oheeieourjmS06 Essential (primary) hrrgkbaahhskU21.6 Silent myocardial ischemiaNew Orders:Stress Test, Treadmill, No Imaging
--- OUTSIDE RECORDS SUMMARY | 2017-12-18 21:31 | XMS REPORT ---
:1955 External Reference #:[id number] Author Organization [facility] Address [address] [facility] [address] [place] [address] Phone [phone] Care Team Providers Name Role Phone Miguel Parmar MD Care Team Information Support Director Unavailable Miguel Parmar MD Primary Care Physician Unavailable Payers Type Date Identification Numbers Payment Provider Subscriber Medicare Primary Effective: Policy Number: Medicare Linda Jiménez 2013 [id number] PayID: [id number] [address] [place] [address] Workers Expires: Policy Number: Alexandru Jiménez Compensation 2016 [id number] [place] Onset: 2010 PayID: [id number] [address] [address] [place] [address] Workers Expires: Policy Number: Alexandru Jiménez Compensation 2016 [id number] [place] Onset: 2010 Group Name: Ortho [address] PayID: MARY Brasher [id number] Commercial Effective: 2016 Policy Number: [facility] Linda Jiménez [id number] Expires: 2018 Group Number: 80% [address] [facility] PayID: [id number] [address] Problems Date Description Provider Status Onset: 10/28/2013 Cervical spondylosis without myelopathy Abdias Brannon M.D. Active Family History Date Family Member(s) Problem(s) Comments General Diabetes General Heart Disease General Hypertension General Stroke Father [place] Social History Type Date Description Comments Marital [...] [place], inophen /0000 q 8 hrs MD Bayron Montelukast Active Tablets 10mg 1 by mouth [...] 30cap Take 1 721.0 s Capsule By [place], - Mouth Once M.D. 03/29 Daily. Lidoderm [...] Procedures Date CPT Code Description Status 12/12/2017 30688 EKG Tracing & Interpretation Completed 07/31/201639150 Inject/Drain Joint/Bursa Major Completed 04/16/2015 70210 Stress Test Completed 04/16/2015 58622 Myocardial Perfusion Imaging Tomographic (Spect) Completed Multiple Studies 04/02/2015 39426 EKG Tracing & Interpretation Completed 02/16/2015 76868 EEG Recording Awake & Asleep Completed 03/09/2014 32208 ECHO Transthorasic Realtime 2D W Doppler & Color Completed Flow Hosp 05/24/201129488 Inject/Drain Joint/Bursa Major Completed 01/27/2011 78746 Arthroscopy,Shoulder Decompression Of Subacromial Space Completed W/Acromio 01/27/2011 66397 Arthroscopy,Shoulder Decompression Of Subacromial Space Completed W/Acromio 12/26/201052154 Inject/Drain Joint/Bursa Major Completed Encounters Type Date Location Provider CPT E/M Dx Office Visit 12/12/2017 [facility] [place] [address] I25.10 1:00p [facility] FAC E78.5 I35.0 I73.9 I10 I25.6 Office Visit 12/03/2017 1:11p [facility] Alex Elizabeth, 32227 I24.9 Rubén Doyle I35.0 Office Visit 09/26/2017 8:49a [facility], [place] [address] R42 Hospitalists M54.2 G89.29 J44.9 Office Visit 07/31/2016 9:00a [facility] Tony Allison, 86181 M17.12 Rod CONDON M25.562 Office Visit 04/02/2015 4:00p [facility] Alex Elizabeth, 35294 443.9 Rubén Doyle 411.1 Office Visit 02/18/2015 7:26a [facility] Nghia Agudelo, 55690 590.80 Assoc,pc Hospitalists Yanira 443.9 557.9 995.90 Office Visit 02/17/2015 7:25a [facility] Suzie Barlow, 66205 590.80 Hospitalists Yanira 443.9 557.9 995.90 Office Visit 02/17/2015 9:22a [facility] Mireille Damon 29278 590.80 Infectious Diseases M.D. V45.72 Office Visit 02/16/2015 7:25a [facility] [place], Suzie Barlow, 55373 443.9 Hospitalists M.D. 496 995.90 780.97 Office Visit 02/16/2015 9:17a [facility] Bryant Damon, 77914 780.62 Infectious Diseases M.D. 780.09 V45.72 791.9 305.1 443.9 Office Visit 02/15/2015 7:23a [facility] [place], Payam Evans, 92649 443.9 Hospitalists N.P. 496 780.97 995.90 Office Visit 01/10/2015 10:01a [facility] [place], Kit Pan D.O. 67397 557.9 Hospitalists 557.1 458.9 286.9 Office Visit 09/11/2013 10:15a [facility] Abdias Brannon M.D. 31431 721.0 Of Energy Specialist Office Visit 07/31/2013 10:00a [facility] Abdias Brannon M.D. 26067 721.0 Of Energy Specialist 721.0 721.0 Office Visit 11/01/2011 9:00a [facility] Tristen Bowens M.D. 07565 726.2 C.M.A. Office Visit 09/14/2011 9:00a [facility] Tristen Bowens M.D. 15442 726.2 C.M.A. Office Visit 08/01/2011 11:00a [facility] Tristen Bowens M.D. 43259 726.2 C.M.A. Office Visit 06/26/2011 11:00a [facility] Tristen Bowens M.D. 47332 726.0 C.M.A. Office Visit 05/29/2011 11:00a [facility] Tristen Bowens M.D. 92448 726.0 C.M.A. Office Visit 05/24/2011 9:30a [facility] Tristen Bowens M.D. 19817 726.0 C.M.A. Office Visit 01/09/2011 9:30a [facility] Tristen Bowens M.D. 43165 726.2 C.M.A. 840.9 Office Visit 12/26/2010 11:15a [facility] Tristen Bowens M.D. 32329 726.2 C.M.A. Office Visit 12/19/2010 10:15a [facility] Tristen Bowens M.D. 58150 840.9 C.M.A. 719.41 Office Visit 12/05/2010 2:00p [facility] Tristen Bowens M.D. 76289 840.9 C.M.A. Office Visit 12/01/2010 1:00p [facility] Howie Boss, 62100 719.41 Rubén Doyle 305.1 Plan of Care 12/12/2017 - Jasper Morrison, FACCI25.10 Athscl heart disease of [place] coronary artery w/o ang pctrsComments:New evidence shows [...] learn more, please let us know.Follow up:6 axpoqkW61.5 Hyperlipidemia, athqigwnkujV62.0 Nonrheumatic aortic (valve) hiftqfqmD93.9 Peripheral vascular disease, xwrvwojjdblB22 Essential (primary) uvozwchphbegF17.6 Silent myocardial ischemiaNew Orders:Stress Test, Treadmill, No Imaging
[2017-12-19] MEDS ORDERED: Cyclobenzaprine TAB* 10 MG PO ONE (00:37)
[2017-12-19] MEDS ORDERED: HYDROcodone/ACETAMIN 5-325 MG* 1 TAB PO ONE (00:37)
[2017-12-19] MEDS ORDERED: predniSONE TAB* 20 MG PO ONE (01:30)
--- NOTE | 2017-12-19 01:33 | ED ---
Lower Extremity - HPI Summary HPI Summary: 62 female presents to ED with complaints of low back pain that is now radiating into right hip that began today. Patient has had chronic low back pain for the past few weeks and thinks she is suffering from a muscle strain however today while walking experienced intense right hip pain. Pain is worse with specific movement and bearing weight, although she is able. Can not recall specific trauma. States pain travels into her leg. Did use a heating pad all day today without significant relief. Denies numbness/tingling and weakness. No swelling or bruising. No other complaints. Recently hospitalized a few weeks ago, had stent placed. PMHx HTN, [place], COPD, arthritis. Also takes prescribed oxycodone and flexeril daily. Took some earlier this morning that did help. No other pain elsewhere. - History of Current Complaint Hx Obtained From: Patient Mechanism Of Injury: Unknown Onset of Pain: Hours Onset/Duration: Still Present Severity Initially: Mild Severity Currently: Moderate Pain Intensity: 8 Pain Scale Used: 0-10 Numeric Timing: Constant Location: Is Discrete @ - right hip, low back diffuse Character Of Pain: Sharp, Aching Associated Signs And Symptoms: Positive: Negative Aggravating Factor(s): Ambulation, Movement, Weight Bearing Alleviating Factor(s): Rest Able to Bear Weight: Yes <Camila Iglesias - Last Filed: 12/19/17 02:21> <Be Ng - Last Filed: 12/19/17 05:33> - History of Current Complaint Chief Complaint: EDExtremityLower Stated Complaint: RT HIP PAIN Time Seen by Provider: 12/18/17 23:51 - Allergies/Home Medications Allergies/Adverse Reactions: Allergies Allergy/AdvReac Type Severity Reaction Status Date / Time No Known Allergies Allergy Verified 12/18/17 20:39 PMH/Surg Hx/FS Hx/Imm Hx Endocrine/Hematology History: Reports: Hx Anticoagulant Therapy, Hx Thyroid Disease Denies: Hx Diabetes Cardiovascular History: Reports: Hx Angioplasty, Hx Coronary Artery Disease, Hx Deep Vein Thrombosis, Hx Hypercholesterolemia, Hx Hypertension, Hx Peripheral Vascular Disease, Other Cardiovascular Problems/Disorders - VASCULAR DISEASE ON HER LEGS AND ABD Denies: Hx Pacemaker/ICD Respiratory History: Reports: Hx Asthma - Lung sounds clear, Hx Chronic Obstructive Pulmonary Disease (COPD), Hx Seasonal Allergies, Other Respiratory Problems/Disorders - COLLAPSED LUNG 30 YRS AGO GI History: Reports: Other GI Disorders - bowel necrosis and surgery Denies: Hx Crohn's Disease, Hx Gall Bladder Disease, Hx Gastrointestinal Bleed, Hx Jaundice, Hx Obstructive Bowel, Hx Pyloric Stenosis History: Reports: Other Problems/Disorders - recent UTI Musculoskeletal History: Reports: Hx Arthritis, Hx Orthopedic Injury, Other Musculoskeletal History - arthritis, degenerative disk in neck, R SHOULDER PAIN Sensory History: Reports: Hx Contacts or Glasses Denies: Hx Eye Injury, Hx Eye Prosthesis, Hx Glaucoma, Hx Legally Blind, Hx Macular Degeneration, Hx Vision Problem, Hx Deafness, Hx Hearing Aid - picayune, Hx Hearing Problem Opthamlomology History: Reports: Hx Contacts or Glasses Denies: Hx Eye Injury, Hx Eye Prosthesis, Hx Glaucoma, Hx Legally Blind, Hx Macular Degeneration, Hx Vision Problem Neurological History: Reports: Other Neuro Impairments/Disorders - tingling down left arm from arthritis--not now Psychiatric History: Reports: Hx Anxiety, Hx Depression, Hx Panic Disorder - Cancer History Hx Palliative Cancer Treatment: No - Surgical History Surgery Procedure, Year, and Place: LT LEG SURGERY 2006, RT SHOULDER 4-11, RT SHOULDER 4-12 AT [facility] femoral angioplasty, 10/2013, [place], recent bowel resection December 2013, R LEG--[facility] - Immunization History Date of Tetanus Vaccine: Unkown Immunizations Up to Date: Yes Infectious Disease History: No Infectious Disease History: Reports: Hx Tuberculosis - 10 YEARS Denies: Hx Clostridium Difficile, Hx Hepatitis, Hx of Known/Suspected MRSA, Hx Shingles, Hx Known/Suspected VRE, Hx Known/Suspected VRSA, Traveled Outside the [place] in Last 30 Days - Family History Known Family History: Negative: Hypertension, Diabetes - Social History Alcohol Use: None Hx Substance Use: Yes Substance Use Type: Reports: Other Substance Use Comment - Amount & Last Used: have (+) for opiod and benzodiazepine. Hx Tobacco Use: Yes Smoking Status (MU): Former Smoker Type: Cigarettes Amount Used/How Often: 2 ppd Length of Time of Smoking/Using Tobacco: 40 Have You Smoked in the Last Year: No <Camila Iglesias - Last Filed: 12/19/17 02:21> Review of Systems Constitutional: Negative Respiratory: Negative Gastrointestinal: Negative Positive: Arthralgia, Myalgia Skin: Negative Neurological: Negative All Other Systems Reviewed And Are Negative: Yes <Camila Iglesias - Last Filed: 12/19/17 02:21> Physical Exam Triage Information Reviewed: Yes Vital Signs On Initial Exam: Initial Vitals Temp Pulse Resp BP Pulse Ox 97.8 F 78 16 113/96 94 12/18/17 20:25 12/18/17 20:25 12/18/17 20:25 12/18/17 20:25 12/18/17 20:25 Vital Signs Reviewed: Yes Appearance: Positive: Well-Appearing, Well-Nourished, Pain Distress - mild to moderate only with movement of right LE, comfortable when at rest Skin: Positive: Warm, Skin Color Reflects Adequate Perfusion, Dry, Erythema @ - over right hip/thigh however appears to be from heating bad, blanchable, not raised, edematous, itchy or drainage.. Negative: Cold, Numb, Cyanosis @, Pale Head/Face: Positive: Normal Head/Face Inspection Respiratory/Lung Sounds: Positive: Clear to Auscultation, Breath Sounds Present , Wheezes - diffuse , COPD. Negative: Rales, Rhonchi Cardiovascular: Positive: Normal, RRR, Pulses are Symmetrical in both Upper and Lower Extremities - 2+ pedal bl. Negative: Murmur, Rub Abdomen Description: Positive: Nontender, Soft Bowel Sounds: Positive: Present Musculoskeletal: Positive: Normal, Limited @ - right hip flexion and abduction/ adduction due to pain, rest of MSK exam normal. negative meagan test. normal length and rotation of bilateral lower extremities, Pain @ - right hip on palpation lateral and anterior, Other - no crepitus step off or obvious deformity, no bruising or edema no signs of trauma. Negative: Interruption @, Edema Left, Edema Right Neurological: Positive: Normal, Sensory/Motor Intact, Alert, Oriented to Person Place, Time, CN Intact II-III, Reflexes Intact, NV Bundle Intact Distally, Normal Gait - favoring left side, limping <Camila Iglesias - Last Filed: 12/19/17 02:21> Vital Signs On Initial Exam: Initial Vitals Temp Pulse Resp BP Pulse Ox 36.6 C 78 16 113/96 94 12/18/17 20:25 12/18/17 20:25 12/18/17 20:25 12/18/17 20:25 12/18/17 20:25 <Be Ng - Last Filed: 12/19/17 05:33> Diagnostics - Vital Signs Vital Signs Temp Pulse Resp BP Pulse Ox 12/19/17 00:27 68 16 95 12/19/17 00:21 116/79 12/18/17 20:25 97.8 F 78 16 113/96 94 - Radiology lumbar spine Xray Interpretation: No Acute Changes Radiology Interpretation Completed By: ED Physician - Dr Ng and myself right hip/pelvis Xray Interpretation: No Acute Changes Radiology Interpretation Completed By: ED Physician - Dr Ng and myself <Camila Iglesias - Last Filed: 12/19/17 02:21> - Vital Signs Vital Signs Temp Pulse Resp BP Pulse Ox 12/19/17 01:59 36.6 C 89 16 113/69 100 12/19/17 00:27 68 16 95 12/19/17 00:21 116/79 12/18/17 20:25 36.6 C 78 16 113/96 94 <Be Ng - Last Filed: 12/19/17 05:33> Re-Evaluation - Re-Evaluation First Eval Re-Evaluation Time: 01:00 Change: Improved - had relief updated on imaging results ready to be d/c <Camila Iglesias - Last Filed: 12/19/17 02:21> Lower Extremity Course/Dx - Course Course Of Treatment: given pain medication. continue at home. xrays obtained and appeared negative. no known trauma or injury. possible muscular/ligament related. normal PE other than erythema over hip area and pain with movement/ touch. no other complaints no other concerns. normal vitals. follow up with pcp. aware of worsening signs and symptoms to watch out for. RICE and heat. analgesia. - Diagnoses Differential Diagnosis/HQI/PQRI: Positive: Arthritis, Sprain, Strain, Tendonitis - Physician Notifications Discussed Care Of Patient With: Dr Ng <Camila Iglesias - Last Filed: 12/19/17 02:21> - Course Course Of Treatment: I supervised the PA and I performed a hx/PE on this pt. Hx : R hip pain, rash. PE: reticular rash and R lateral hip pain. No radicular findings. Plan: Rash is from over exposure to heating pad. Xrays neg. Tx sympt , possible bursitis. Dr Ng <Be Ng - Last Filed: 12/19/17 05:33> - Diagnoses Provider Diagnoses: Acute right hip pain, Chronic low back pain Discharge <Camila Iglesias - Last Filed: 12/19/17 02:21> <Be Ng - Last Filed: 12/19/17 05:33> - Discharge Plan Condition: Stable Disposition: HOME Prescriptions: predniSONE TAB* [Deltasone TAB*] 20 mg PO DAILY #4 tab Patient Education Materials: Hip Pain (ED) Referrals: Miguel Parmar MD [Primary Care Provider] - Additional Instructions: Take already prescribed pain medication and muscle relaxer. Rest and avoid over use until symptoms improve. Heat 20 minutes on and 20 minutes off, ice at bedtime. Take prescribed prednisone to help with inflammation, in the morning, as directed. Any new or worsening symptoms please seek medical attention promptly. Follow up with PCP.
[2017-12-19] MEDS ORDERED: Lidocaine PATCH 5%* 1 PATCH ONE (01:53)
[2017-12-19 02:00] VITALS: BP 113/69
[2017-12-19] MEDS ORDERED: Lidocaine PATCH 5%* 1 PATCH TRANSDERM SCH (02:00)
--- NOTE | 2017-12-19 07:41 | RAD ---
Indication: Fall, hip pain. 2 views of the right hip and an AP view of the pelvis demonstrates no fracture. Pelvic ring is intact. IMPRESSION: No fracture of the right hip or pelvis is noted.
--- NOTE | 2017-12-19 07:42 | RAD ---
Indication: Back pain. 5 views of lumbar spine are reviewed. There is disc space narrowing at L4-L5. No fracture is identified. Spinal canal appears to be intact. IMPRESSION: Degenerative disc disease at L4-L5 without evidence of fracture. Osteopenia is present.
[2017-12-19] MEDS ORDERED: Lidocaine Patch REMOVE* 1 NOTE MISC SCH (21:00)
== END 2017-12-19 02:00 | disposition home or self-care (01) ==
LOC: ED 20:09
DX: M51.36 Other intervertebral disc degeneration, lumbar region (principal); G89.29 Other chronic pain; M25.551 Pain in right hip; M85.88 Other specified disorders of bone density and structure, other site; Z87.891 Personal history of nicotine dependence
CPT/HCPCS: 72110; 99283; A9270-GY; J7512

== ENCOUNTER 2018-09-28 18:27 | Inpatient (IN) | payer MEDICARE ==
--- OUTSIDE RECORDS SUMMARY | 2018-09-28 18:54 | XMS REPORT ---
:1955 External Reference #:[id number] Demographics Address [address] [place] [address] Home Phone Mobile Phone Email Address Preferred Language Mexican Marital Status Not Or Gnosticist Affiliation Unknown Race White Ethnic Group Not Or Author Organization [facility] Address [address] [place] [address] Phone [phone] Care Team Providers Name Role Phone Miguel Parmar Care Team Information Language Pathologist Unavailable Miguel Parmar Primary Care Physician Unavailable Payers Type Date Identification Numbers Payment Provider Subscriber Health Maintenance Effective: Policy Number: [employer] Linda Ellington [facility] ([facility]) 03/29/2018 [id number] o PayID: [id number] [id number] [place] [address] Problems Date Description Provider Status Onset: 11/14/2006 Peripheral vascular disease Miguel Parmar M.D. Active Onset: 11/14/2006 Anxiety state Miguel Parmar M.D. Active Onset: 11/14/2006 Tobacco user Miguel Parmar M.D. Active Onset: 02/02/2009 Benign essential hypertension Miguel Parmar M.D. Active Onset: 05/15/2011 Chronic obstructive lung disease Miguel Parmar M.D. Active Onset: 11/21/2011 Depressive disorder Miguel Parmar M.D. Active Onset: 01/19/2012 Disorder of shoulder Miguel Parmar M.D. Active Onset: 02/04/2013 Neck pain Miguel Parmar M.D. 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 Active Onset: 05/27/2013 Low back pain Miguel Parmar M.D. Active Onset: 06/08/2014 Hyperlipidemia Miguel Parmar M.D. Active Onset: 06/08/2014 Arthralgia of the pelvic region and Miguel Parmar M.D. Active thigh Onset: 03/08/2015 Urinary tract infectious disease Miguel Parmar M.D. Active Onset: 03/08/2015 Malaise and fatigue Miguel Parmar M.D. Active Onset: 03/08/2015 Generalized atherosclerosis Miguel Paramr M.D. Active Onset: 05/17/2015 Acute exacerbation of chronic Miguel Parmar M.D. Active obstructive airways disease Onset: 06/07/2015 Cough Miguel Parmar M.D. Active Onset: 06/07/2015 Acute upper respiratory infection Miguel Parmar M.D. Active Onset: 10/13/2015 Essential hypertension NATE Coates Active Onset: 04/14/2016 Shoulder joint pain Miguel Parmar M.D. Active Onset: 04/14/2016 Difficulty speaking Miguel Parmar M.D. Active Onset: 05/19/2016 Disorder of bursa of shoulder region Miguel Parmar M.D. Active Onset: 06/12/2016 Knee pain Miguel Parmar M.D. Active Onset: 01/19/2017 Female stress incontinence Miguel Parmar M.D. Active Onset: 04/24/2017 Hypothyroidism Miguel Parmar M.D. Active Onset: 08/24/2017 Degenerative joint disease involving Miguel Parmar M.D. Active multiple joints Onset: 10/02/2017 Acute sinusitis Miguel Parmar M.D. 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 Family History Date Family Member(s) Problem(s) Comments Father due to [place] () Mother Ulcers Mother Dementia Social History Type Date Description Comments Marital Status Patient is Living Situation Lives with daughter Diet Diet is healthy and well balanced Occupation Disabled Cigarette Use Former Cigarette Smoker ETOH Use Denies alcohol use Smoking Patient is a former smoker Exercise Type/Frequency Current Exercises regularly Allergies, Adverse Reactions, Alerts Date Description Reaction Status Severity Comments 08/18/2011 NKDA active Medications Medication Date Status Form Strength Qnty SIG Indications Ordering Provider Methylprednisolo 09/03 Hx TBPK 4mg 1pack take as M79.604 Helena directed Francisco, - with Afnp-C 09/10 food and /2017 6-8 oz h20 Guaifenesin ER 06/28 Active Tablets 1200mg 60tabs 1 by J44.9 Miguel T. ER 12HR mouth Midura, two M.D. times a day for mucous Atorvastatin 12/07 Active Tablets 40mg 90tabs 1 by Miguel T. Calcium /2017 mouth Midura, every M.D. day at at bedtime for choleste rol Combivent 12/07 Active Aerosol 20-100mcg 4units 1 puff Miguel T. Respimat /2017 /Act four Midura, times a M.D. day Levothyroxine 10/02 Active Tablets 75mcg 30tabs 1 by Miguel T. Sodium mouth Midura, every M.D. day for thyroid Symbicort 04/24 Active Aerosol 160-4.5mc 10.2unit inhale 2 J44.9 Miguel T. g/Act s puffs by Midura, mouth M.D. twice a day Handicap Sticker 06/12 Active needs Miguel T. handicap Midura, ped M.D. sticker due to leg pain duration -permane nt Clopidogrel 02/19 Active Tablets 75mg 30tabs take one Miguel T. Bisulfate tablet Midura, by mouth M.D. once daily Cyclobenzaprine 12/07 Active Tablets 10mg 90tabs Take One Miguel T. HCL Tablet Midura, By Mouth M.D. Twice Times A Day as Needed Montelukast 06/12 Active Tablets 10mg 30tabs take one J44.9 Miguel T. Sodium tablet Midura, by mouth M.D. once daily Sertraline HCL 03/11 Active Tablets 100mg 60tabs take 2 F32.9 Miguel T. tabs by Midura, mouth M.D. daily Xanax 09/18 Active Tablets 0.25mg 60tabs 1-2 tab F41.9 Miguel Rendon by mouth Midura, twice a M.D. day as needed Lisinopril 02/02 Active Tablets 10mg 30tabs take one I10 Miguel Rendon tablet Midura, by mouth M.D. once daily Aspirin Active Tablets 325mg 1 by Unknown /0000 mouth every day Percocet Active Tablets 5-325mg 1 po 3-4 Unknown /0000 times qd prn Lyrica Active Capsules 25mg 1 by Unknown /0000 mouth three times a day failed on gabapent in Metoprolol Active Tablets 25mg 1 by Unknown Succinate ER /0000 ER 24HR mouth every day Myrbetriq Active Tablets 50mg 1 by Unknown /0000 ER 24HR mouth every day Nitroglycerin Active Tablets 0.4mg place Unknown /0000 Sub one tablet under the tongue every 5 minutes for up to 3 doses as needed for chest pain *if chest pain still persists *ca Albuterol Active Nebulizer (2.5mg/3M use one Unknown Sulfate /0000 L) 0.083% vial in nebulize r every 4 hours as needed Cefdinir 09/28 Hx Capsules 300mg 14caps 1 by Miguel Rendon mouth Midura, - twice M.D. 12/03 Cheratussin ac 05/30 Hx Syrup 100-10mg/ 118ml 5-10 Miguel Rendon 5ML millilit Midura, - ers M.D. 12/03 every hours as needed Gabapentin 04/24 Hx Capsules 300mg take 1qid prn [facility] - [facility] 06/28 Of Levothyroxine 02/02 Hx Tablets 50mcg 30tabs 1 by Miguel Rendon mouth Midura, - every M.D. /2016 Prednisone 01/31 Hx Tablets 10mg 30tabs 2 twice M54.5 Miguel Rendon a day x Midura, - 3 days M.D. 04/24 then in the morning, 1 at night x 3 days then 1 twice a day x 3 days then 1 every day x 3 Oxybutynin 01/19 Hx Tablets 10mg 30tabs 1 by N39.3 Miguel Rendon Chloride ER /2016 ER 24HR mouth Midura, - daily M.D. 04/24 for overacti ve bladder. Physical Therapy 11/01 Hx treatmen Miguel Rendon t and Midura, - evaluati M.D. 08/23 on low back pain Prednisone 10/19 Hx Tablets 10mg 30tabs 2 twice M54.5 Miguel Rendon a day x Midura, - 3 days M.D. 01/19 then in the morning, 1 at night x 3 days then 1 twice a day x 3 days then 1 every day x 3 Advair HFA 10/05 Hx Aerosol 115-21mcg 36units inhale 2 Hope /Act puffs Suresh, - two GEOGRAPHIC INFORMATION SYSTEMS ANALYST 01/19 daily Doxycycline 06/30 Hx Capsules 100mg 60caps 1 by M25.562 Miguel Rendon Hyclate mouth Midura, - twice a M.D. /2015 Methylprednisolo 06/12 Hx TBPK 4mg 1Pack as M25.562 Miguel Rendon ne directed Midura, - M.D. 06/30 Prednisone 04/14 Hx Tablets 10mg 30tabs 2 twice M25.512 Miguel Rendon a day x Midura, - 3 days M.D. 05/19 then in the morning, 1 at night x 3 days then 1 twice a day x 3 days then 1 every day x 3 Spiriva 04/14 Hx Capsules 18mcg 30caps inhale Miguel Rendon Handihaler /2015 the Midura, - contents M.D. 12/07 of capsule by mouth via handihal er once daily Amoxicillin 12/10 Hx Tablets 500mg 30tabs 1 by Miguel Rendon mouth Midura, - three M.D. 04/14 times a day Amoxicillin 08/12 Hx Tablets 500mg 30tabs 1 by Miguel Rendon mouth Midura, - three M.D. 10/13 times day Handicap Sticker 07/15 Hx needs Miguel Rendon handicap Midura, - ped M.D. 10/13 stick due to leg pain duration -6 months Azithromycin 06/07 Hx Tablets 250mg 6tabs 2 by 786.2 Miguel T. mouth Midura, - today M.D. 08/12 and 1 by /2014 mouth x 4 days Atorvastatin 02/27 Hx Tablets 20mg 30tabs take 1 Miguel T. tablet Midura, - at M.D. 10/05 bedtime Chantix 02/23 Hx Tablets 1mg 60tabs 1 by Pennie /2014 mouth Henrietta, - twice a GEOGRAPHIC INFORMATION SYSTEMS ANALYST Handicap Parking 02/23 Hx needed 443.9 Miguel T. due to: Midura, - peripher M.D. 05/05 vascular disease need: 6 months Chantix Starting 01/02 Hx Tablets 0.5mg X 1pk take as 496 Miguel T. Month 11 & 1 mg [facility], - X 42 M.D. 02/23 Gabapentin 10/17 Hx Capsules 100mg 120caps 4 po tid Miguel T. , - M.D. 04/24 Gabapentin 09/12 Hx Capsules 300mg 60caps take 1-2 Miguel T. caps at [facility], - bedtime M.D. 06/08 for pain Oxycodone HCL 09/12 Hx Tablets 5mg 120tabs 1-2 po q Miguel T. 6 hrs , - prn pain M.D. 03/08 Atenolol 06/12 Hx Tablets 50mg 30tabs take one I10 Miguel T. tablet , - by mouth M.D. 10/19 daily Chantix Starting 05/27 Hx Tablets 0.5mg X 1pk take as 496 Miguel T. Month 11 & 1 mg directed [facility], - X 42 M.D. 08/15 Physical Therapy 05/27 Hx treatmen 723.1 Miguel T. t and Midmichelle, - evaluati M.D. 08/15 on pain with radiculo camila Proair HFA 05/08 Hx Aerosol 108(90Bas 1units 2 puffs J44.9 Miguel T. e) every 4h [facility], - mcg/Act as M.D. 10/19 cough/ch est tightnes s Butrans 01/18 Hx Patches 10mcg/HR apply 1 Weekly patch & Medicine - change [facility] 02/04 once Of weekly Flector Patch 01/18 Hx 1.3% Change Patch Medicine - Q12HRS [facility] 02/04 Of Gabapentin 01/18 Hx Capsules 100mg 2 PO qam, 2 Medicine - PO @ [facility] 02/04 Lunch, Of And 2 PO qpm And Increase as Directed Tenormin 11/21 Hx Tablets 50mg 30tabs take one 401.1 Miguel T. (1) [facility], - tablet(s M.D. 06/12 ) by mouth once daily Warfarin Sodium 02/27 Hx Tablets 5mg 60tabs 1-2 Miguel T. /2010 daily Midura, - M.D. 05/15 Warfarin Sodium 02/27 Hx Tablets 5mg 60tabs take one Miguel T. to two Midura, - tablets M.D. 03/08 by mouth daily as directed Work Excuse 12/15 Hx unable Miguel T. to work [facility], - 12/15 M.D. 01/09 Through 12/26 Carisoprodol 11/25 Hx Tablets 350mg 120tabs take 1 Miguel T. tablet Midura, - four M.D. 11/21 times day as needed for muscle spasm MRI Cervical 11/15 Hx Please 723.1 Miguel TMarcia Spine W/O /2010 schedule Midura, Contrast - mri M.D. 11/25 spine w/o contrast . workers comp Medrol Dosepak 11/08 Hx Tablets 4mg 1tabs as Miguel T. directed Midura, - M.D. 11/25 Percocet 11/08 Hx Tablets 5-325mg 120tabs 1-2 po Miguel T. /2010 every 6 Midura, - hours M.D. 01/21 prn pain Work Comp 11/08 Hx request Miguel TMarcia Evaluation/ permissi saida Parmar - on mri M.D. 11/25 spine for neck,sorin k and rt arm pain Flonase 11/02 Hx Suspensio 50mcg/Act 1units 2 each n nostril Suresh, - qd GEOGRAPHIC INFORMATION SYSTEMS ANALYST 01/21 Cyclobenzaprine 09/20 Hx Tablets 10mg 40tabs 1 tid Miguel T. HCL prn Ghulam, - muscle M.D. 11/25 spasm. Physical Therapy 09/20 Hx treatmen Miguel T. t and Ghulam, - evaluati M.DMarcia 01/09 on neck, RT shoulder and back pain Tramadol HCL 09/20 Hx Tablets 50mg 60tabs 1 qid Miguel T. prn pain Ghulam, - M.DMarcia 11/25 Work Excuse 09/20 Hx unable Miguel T. to work Ghulam, - until M.DMarcia 01/09 rechecke D in 3 weeks due to neck and shoulder pain Veramyst 07/29 Hx Suspensio 27.5mcg/S sample 1 477.9 n pray spray/no Suresh, - stril/d GEOGRAPHIC INFORMATION SYSTEMS ANALYST 11/02 Claritin 07/29 Hx Capsules 10mg 30caps 1 po qd 477.9 Suresh, - GEOGRAPHIC INFORMATION SYSTEMS ANALYST 01/21 Clarinex-D 24 07/08 Hx Tablets 5-240mg sample 1 po qd ER 24HR Suresh, - GEOGRAPHIC INFORMATION SYSTEMS ANALYST 08/01 Proair HFA 07/08 Hx Aerosol 108(90Bas 1units 2 puffs 496 e) mcg/ac q 4h prn Suresh, - cough/ch GEOGRAPHIC INFORMATION SYSTEMS ANALYST 05/08 est tightnes s Singulair 07/08 Hx Tablets 10mg 30tabs 1 po qd 496 Miguel T. Ghulam, - MMarciaDMarcia 06/12 Symbicort 07/08 Hx Aerosol 80-4.5mcg 30.6unit Inhale J44.9 /Act s Two Suresh, - Puffs By GEOGRAPHIC INFORMATION SYSTEMS ANALYST 10/05 Twice A Day Tenormin 03/09 Hx Tablets 25mg 30tabs 1 po qd 401.1 Miguel T. Ghulam - Yanira 11/21 Sertraline HCL 09/18 Hx Tablets 50mg 30tabs 1 po qd 300.00 Suresh, - GEOGRAPHIC INFORMATION SYSTEMS ANALYST 03/11 Micardis 09/18 Hx Tablets 40mg samples 1 po qd 401.1 Suresh, - GEOGRAPHIC INFORMATION SYSTEMS ANALYST 03/11 Bactrim DS 09/07 Hx Tablets 800-160 20tabs 1 po bid 562.11 Suresh, - GEOGRAPHIC INFORMATION SYSTEMS ANALYST 03/09 Physical Therapy 02/02 Hx treatmen Miguel Rendon t and Ghulam, - evaluati MCuca 09/18 on pain Warfarin 09/25 Hx Tablets 5mg 60tabs 1-2 Miguel Rendon /2006 daily Ghulam, - MCuca 02/27 Chantix 12/18 Hx 1mg 60units 1 bid Miguel Rendon Ghulam - Yanira 09/18 Lorazepam 11/14 Hx Tablets 0.5mg 120tabs 1 qID Miguel Rendon /2006 prn Ghulam, - Anxiety M.D. 02/02 Warfarin 11/14 Hx Tablets 5mg 0tabs as directed [facility] - [facility] 11/14 Of Endocet 11/14 Hx Tablets 5mg;325 0tabs 1 PO mg Q4HRS Medicine - prn [facility] 02/02 Of Warfarin 11/14 Hx Tablets 2.5mg 60tabs 1 alt Miguel Rendon with 2 Ghulam, - tabs M.DMarcia 02/02 other day or as directed Chantix 11/14 Hx Starter 1Pack as Miguel Rendon Pack directed Ghulam, - . call M.DMarcia 09/18 finished for regular dosage. Ativan 02/22 Hx 1mg 90units 1 tid Miguel Rendon /2004 prn Ghulam, - M.D. 11/14 Note 02/06 Hx seen Miguel Rendon jaiden Parmar, - for M.DMarcia 11/14 urgent medical problem. unable to be seen at any other time. Verapamil SR 01/27 Hx 240mg 30units 1 po qd Miguel Rendon Ghulam, - M.D. 01/27 Verelan PM 01/27 Hx 200mg 30units 1 tab po Miguel T. q pm Midura, - M.D. 11/14 Norvasc 01/13 Hx 5mg Samples 1 po qd Miguel T. Midura, - M.D. 01/13 Zyban 01/13 Hx 150mg 60units 1 po qd Miguel T. x 3 Midura, - days, M.D. 02/22 increase to bid Verapamil PM 01/13 Hx 100mg qhs Miguel T. Midura, - M.D. 01/27 Physical Therapy 12/12 Hx treatmen Miguel T. t and Ghulam, - evaluati M.D. 12/29 on Neck Pain And LT Arm Pain/Tin gling Naproxen 12/12 Hx 500mg 60units 1 bid Miguel T. with Ghulam, - food prn M.D. 11/14 pain Work 12/12 Hx Linda Miguel T. Should Midura, - Avoid M.D. 12/29 Heavy Lifting Due To Neck Pain. Zoloft 10/25 Hx 150mg 0units qa [facility] 12[facility]12 [facility] [place] Neurontin 25 Hx 100mg 0units 3 po q [facility] 12/12 [facility] [place] Hydrocodone/Acet Hx Tablets 5-325mg 100tabs 1-2 po Unknown aminophen /0000 qid prn - pain 11/08 Flexeril Hx Tablets 5mg 15tabs one tab Unknown /0000 po qhs - prn 01/21 spasm Veramyst Hx Suspensio 27.5mcg/S 1 Unknown /0000 n pray spray/no - stril/qh 05/05 Celebrex Hx Capsules 200mg 1 po qam Unknown /0000 - 05/05 Cyclobenzaprine Hx Tablets 10mg 90tabs 1 by Miguel T. HCL /0000 mouth [facility], - three M.D. 12/07 times day as needed Symbicort /00 Hx Aerosol 80-4.5mcg 10.200gm 2 puff J44.9 Miguel T. /0000 /Act twice a , - day M.D. 04/24 Lorazepam 00/00 Hx Tablets 1mg take one Unknown 0000 tablet - by mouth 10/19 every hours as needed Crestor 0000 Hx Tablets 10mg 30tabs take one Miguel T. /0000 tablet Midura, - by mouth M.D. 12/07 daily Immunizations CPT Code Status Date Vaccine Lot # [id number] Given 06/28/2018 High-Dose, Influenza Virus Vacccine-fluzone 65 and [id number] older [id number] Given 08/24/2017 Pneumococcal Immunization [id number] 68409 Given 08/24/2017 Influenza Vac, Quadrivalent, Slit Virus, Im [id number] 93647 Given 09/29/2016 Influenza Vac, Quadrivalent, Slit Virus, Im [id number] 98862 Given 10/13/2015 Influenza Vac, Quadrivalent, Slit Virus, Im [id number] 69336 Given 10/05/2014 Influenza Vac, Quadrivalent, Slit Virus, Im [id number] 45165 Given 02/23/2014 Tdap Tetanus, W Pertussis [id number] 01958 Given 02/23/2014 Pneumococcal Conjugate Vacc-13 [id number] Vital Signs Date Vital Result Comment 09/03/2018 BP Systolic 128 mmHg BP Diastolic 88 mmHg Heart Rate 80 /min Body Temperature 97.0 F Respiratory Rate 20 /min Height 67 inches 5'7" Weight 182.00 lb BMI (Body Mass Index) 28.5 kg/m2 06/28/2018 BP Systolic 102 mmHg BP Diastolic 64 mmHg Heart Rate 84 /min Body Temperature 97.2 F Respiratory Rate 16 /min Height 67 inches 5'7" Weight 172.25 lb BMI (Body Mass Index) 27.0 kg/m2 10/02/2017 BP Systolic 148 mmHg BP Diastolic 80 mmHg Heart Rate 96 /min Body Temperature 96.8 F Respiratory Rate 16 /min Height 67 inches 5'7" Weight 171.00 lb BMI (Body Mass Index) 26.8 kg/m2 Head Circumference 2 inches 08/24/2017 BP Systolic 124 mmHg BP Diastolic 70 mmHg Heart Rate 84 /min Body Temperature 97.0 F Respiratory Rate 16 /min Height 67 inches 5'7" Weight 171.38 lb BMI (Body Mass Index) 26.8 kg/m2 04/24/2017 BP Systolic 144 mmHg BP Diastolic 90 mmHg Heart Rate 76 /min Body Temperature 97.9 F Respiratory Rate 16 /min Height 67 inches 5'7" Weight 171.00 lb BMI (Body Mass Index) 26.8 kg/m2 01/19/2017 BP Systolic 130 mmHg BP Diastolic 80 mmHg Heart Rate 76 /min Body Temperature 97.4 F Respiratory Rate 18 /min Height 67 inches 5'7" Weight 171.00 lb BMI (Body Mass Index) 26.8 kg/m2 10/19/2016 BP Systolic 110 mmHg BP Diastolic 66 mmHg Heart Rate 90 /min Body Temperature 98.1 F Respiratory Rate 16 /min Height 67 inches 5'7" Weight 171.12 lb BMI (Body Mass Index) 26.8 kg/m2 07/24/2016 BP Systolic 120 mmHg BP Diastolic 72 mmHg Heart Rate 84 /min Body Temperature 97.7 F Respiratory Rate 16 /min Height 67 inches 5'7" Weight 171.25 lb BMI (Body Mass Index) 26.8 kg/m2 06/30/2016 BP Systolic 98 mmHg BP Diastolic 60 mmHg Heart Rate 96 /min Body Temperature 97.0 F Respiratory Rate 16 /min Height 67 inches 5'7" Weight 168.12 lb BMI (Body Mass Index) 26.3 kg/m2 06/12/2016 BP Systolic 124 mmHg BP Diastolic 80 mmHg Heart Rate 96 /min Body Temperature 97.5 F Respiratory Rate 16 /min Height 67 inches 5'7" Weight 168.25 lb BMI (Body Mass Index) 26.3 kg/m2 05/19/2016 BP Systolic 136 mmHg BP Diastolic 76 mmHg Heart Rate 84 /min Body Temperature 97.5 F Respiratory Rate 16 /min Height 67 inches 5'7" Weight 173.50 lb BMI (Body Mass Index) 27.2 kg/m2 04/14/2016 BP Systolic 120 mmHg BP Diastolic 72 mmHg Heart Rate 90 /min Body Temperature 97.5 F Respiratory Rate 16 /min Height 67 inches 5'7" Weight 166.00 lb BMI (Body Mass Index) 26.0 kg/m2 10/13/2015 BP Systolic 118 mmHg BP Diastolic 82 mmHg Heart Rate 68 /min Body Temperature 97.2 F Height 67 inches 5'7" Weight 158.00 lb BMI (Body Mass Index) 24.7 kg/m2 06/08/2015 BP Systolic 110 mmHg BP Diastolic 70 mmHg Heart Rate 68 /min Body Temperature 98.1 F Respiratory Rate 18 /min Height 67 inches 5'7" Weight 149.50 lb BMI (Body Mass Index) 23.4 kg/m2 06/07/2015 BP Systolic 100 mmHg BP Diastolic 60 mmHg Heart Rate 66 /min Body Temperature 97.6 F Respiratory Rate 16 /min Height 67 inches 5'7" Weight 149.38 lb BMI (Body Mass Index) 23.4 kg/m2 05/17/2015 BP Systolic 118 mmHg BP Diastolic 64 mmHg Heart Rate 68 /min Body Temperature 97.2 F Respiratory Rate 16 /min Height 67 inches 5'7" Weight 148.25 lb BMI (Body Mass Index) 23.2 kg/m2 03/08/2015 BP Systolic 120 mmHg BP Diastolic 70 mmHg Heart Rate 80 /min Body Temperature 97.9 F Respiratory Rate 16 /min Height 67 inches 5'7" Weight 140.50 lb BMI (Body Mass Index) 22.0 kg/m2 10/05/2014 BP Systolic 120 mmHg BP Diastolic 80 mmHg Heart Rate 68 /min Body Temperature 97.7 F Respiratory Rate 16 /min Height 67 inches 5'7" Weight 142.00 lb BMI (Body Mass Index) 22.2 kg/m2 06/08/2014 BP Systolic 100 mmHg BP Diastolic 62 mmHg Heart Rate 60 /min Body Temperature 98.4 F Respiratory Rate 16 /min Height 66.25 inches 5'6.25" Weight 136.25 lb BMI (Body Mass Index) 21.8 kg/m2 05/05/2014 BP Systolic 154 mmHg BP Diastolic 92 mmHg Heart Rate 60 /min Body Temperature 98.7 F Respiratory Rate 16 /min O2 % BldC Oximetry 98 % Height 66.25 inches 5'6.25" Weight 139.00 lb BMI (Body Mass Index) 22.3 kg/m2 02/23/2014 BP Systolic 110 mmHg BP Diastolic 62 mmHg Heart Rate 64 /min Body Temperature 97.8 F Respiratory Rate 16 /min Height 66.25 inches 5'6.25" Weight 139.00 lb BMI (Body Mass Index) 22.3 kg/m2 10/17/2013 BP Systolic 100 mmHg BP Diastolic 60 mmHg Heart Rate 56 /min Body Temperature 97.5 F Respiratory Rate 16 /min Height 66 inches 5'6" Weight 140.00 lb BMI (Body Mass Index) 22.6 kg/m2 09/12/2013 BP Systolic 116 mmHg BP Diastolic 70 mmHg Heart Rate 60 /min Body Temperature 98.1 F Respiratory Rate 16 /min Height 66 inches 5'6" Weight 135.50 lb BMI (Body Mass Index) 21.9 kg/m2 08/15/2013 BP Systolic 116 mmHg BP Diastolic 60 mmHg Heart Rate 60 /min Body Temperature 97.5 F Respiratory Rate 16 /min Height 66 inches 5'6" Weight 138.38 lb BMI (Body Mass Index) 22.3 kg/m2 05/27/2013 BP Systolic 122 mmHg BP Diastolic 80 mmHg Heart Rate 66 /min Body Temperature 97.6 F Respiratory Rate 16 /min Height 66 inches 5'6" Weight 122.50 lb BMI (Body Mass Index) 19.8 kg/m2 02/04/2013 BP Systolic 150 mmHg BP Diastolic 100 mmHg Heart Rate 72 /min Body Temperature 97.8 F Respiratory Rate 16 /min Height 66 inches 5'6" Weight 129.00 lb BMI (Body Mass Index) 20.8 kg/m2 02/05/2012 BP Systolic 128 mmHg BP Diastolic 92 mmHg Heart Rate 66 /min Body Temperature 95.7 F Height 66 inches 5'6" Weight 123.00 lb BMI (Body Mass Index) 19.9 kg/m2 01/19/2012 BP Systolic 118 mmHg BP Diastolic 72 mmHg Heart Rate 72 /min Body Temperature 97.7 F Height 66 inches 5'6" Weight 123.00 lb BMI (Body Mass Index) 19.9 kg/m2 11/21/2011 BP Systolic 142 mmHg BP Diastolic 98 mmHg Heart Rate 78 /min Body Temperature 98.3 F Height 66 inches 5'6" Weight 121.00 lb BMI (Body Mass Index) 19.5 kg/m2 05/15/2011 BP Systolic 126 mmHg BP Diastolic 80 mmHg Heart Rate 72 /min Body Temperature 97.1 F Height 66 inches 5'6" Weight 120.00 lb BMI (Body Mass Index) 19.4 kg/m2 01/21/2011 BP Systolic 136 mmHg BP Diastolic 100 mmHg Heart Rate 72 /min Body Temperature 97.8 F Height 66 inches 5'6" Weight 120.00 lb BMI (Body Mass Index) 19.4 kg/m2 11/25/2010 BP Systolic 160 mmHg BP Diastolic 102 mmHg Heart Rate 68 /min Body Temperature 97.8 F Respiratory Rate 15 /min Height 66 inches 5'6" Weight 124.00 lb BMI (Body Mass Index) 20.0 kg/m2 11/08/2010 BP Systolic 140 mmHg BP Diastolic 90 mmHg Heart Rate 68 /min Body Temperature 98.6 F Respiratory Rate 15 /min Height 66 inches 5'6" Weight 124.00 lb BMI (Body Mass Index) 20.0 kg/m2 09/20/2010 BP Systolic 160 mmHg BP Diastolic 90 mmHg Heart Rate 72 /min Body Temperature 98.2 F Respiratory Rate 14 /min Height 66 inches 5'6" Weight 123.00 lb BMI (Body Mass Index) 19.9 kg/m2 07/29/2010 BP Systolic 154 mmHg BP Diastolic 100 mmHg Heart Rate 76 /min Body Temperature 96.5 F Respiratory Rate 16 /min Height 66 inches 5'6" Weight 123.00 lb BMI (Body Mass Index) 19.9 kg/m2 07/08/2010 BP Systolic 116 mmHg BP Diastolic 66 mmHg Heart Rate 84 /min Body Temperature 98.1 F Height 66 inches 5'6" Measured Weight 119.00 lb BMI (Body Mass Index) 19.2 kg/m2 07/01/2010 BP Systolic 110 mmHg BP Diastolic 76 mmHg Heart Rate 80 /min Body Temperature 97.7 F Height 66 inches 5'6" Measured Weight 118.00 lb BMI (Body Mass Index) 19.0 kg/m2 03/11/2010 BP Systolic 110 mmHg BP Diastolic 60 mmHg Heart Rate 72 /min Body Temperature 98.3 F Height 66 inches 5'6" Measured Weight 126.00 lb BMI (Body Mass Index) 20.3 kg/m2 03/09/2010 BP Systolic 204 mmHg BP Diastolic 130 mmHg BP Systolic Recheck 200 mmHg BP Diastolic Recheck 130 mmHg Heart Rate 124 /min Weight 138.00 lb 09/18/2009 BP Systolic 184 mmHg BP Diastolic 110 mmHg Heart Rate 96 /min Body Temperature 97.1 F Weight 135.00 lb 09/07/2009 BP Systolic 140 mmHg BP Diastolic 90 mmHg Heart Rate 72 /min Body Temperature 97.6 F Weight 132.00 lb 02/02/2009 BP Systolic 160 mmHg BP Diastolic 92 mmHg Heart Rate 72 /min Body Temperature 96.4 F Weight 134.00 lb 11/14/2006 BP Systolic 136 mmHg BP Diastolic 80 mmHg Heart Rate 78 /min Weight 134.00 lb 02/22/2005 BP Systolic 130 mmHg BP Diastolic 82 mmHg Heart Rate 72 /min Body Temperature 97.8 F Weight 133.00 lb 02/06/2005 BP Systolic 144 mmHg BP Diastolic 90 mmHg Heart Rate 66 /min Weight 139.00 lb 01/27/2005 BP Systolic 130 mmHg BP Diastolic 96 mmHg Heart Rate 66 /min Weight 132.00 lb 01/13/2005 BP Systolic 160 mmHg BP Diastolic 89 mmHg Heart Rate 84 /min Weight 139.00 lb 12/12/2004 BP Systolic 158 mmHg BP Diastolic 90 mmHg Heart Rate 90 /min Weight 132.00 lb 08/22/2004 BP Systolic 130 mmHg BP Diastolic 80 mmHg Heart Rate 66 /min Weight 131.00 lb Results Test Date Test Result H/L Range Note CBC Electronic ([facility] New) 06/28/2018 WBC 9.68 4.0-10.0 RBC 4.34 3.93-6.0 Hemoglobin ([facility]/CMC/CTX) 13.0 g/dL 12.0-17.0 Hematocrit ([facility]/CMC/CTX) 40.2 % 35.0-50.0 Mean Corpuscular Vol 92.6 fL 80-95 Mean Corpuscular Hemoglobin 30.0 pg 25.6-32.2 Mean Corpuscular Hemo Concen 32.3 g/dL 32.2-36.0 Platelets 228 10^3/ul 163-400 RDW-CV 12.6 11.6-14.4 Mean Platelet Volume 10.0 fL 8.0-12.4 Absolute Neutrophils BLD 7.38 High 1.56-6.13 Absolute Lymphocytes 1.23 1.18-3.74 Absolute Monocytes BLD Auto 0.82 0.24-0.82 Absolute Eos Blood 0.21 0.04-0.54 Absolute Basophils 0.03 0.01-0.08 Neutrophil % 76.2 % High 34.0-70.0 Lymph% 12.7 % Low 20.0-52.0 Monocytes % 8.5 % 5.0-12.0 Eos % 2.2 % 0.7-7.0 Basophil% 0.3 % 0-1.2 Comprehensive Metabolic Prof 06/28/2018 Sodium 138 mEq/L 134-149 Potassium 4.5 mEq/L 3.6-5.5 Chloride 104 mEq/L 94-112 Carbon Dioxide 27 mEq/L 21-32 Glucose 89 mg/dL 70-105 BUN 21 mg/dL 6-26 Creatinine 1.0 mg/dL 0.6-1.4 BUN/Creat Ratio 21.0 CALC 8.0-36.0 Calcium 9.9 mg/dL 8.6-10.2 Total Protein 7.7 g/dL 6.4-8.3 Albumin 5.0 g/dL 3.8-5.5 Globulin 2.7 g/dL 2.0-4.8 A/G Ratio 1.9 CALC 0.6-2.3 Alk. Phosphatase 64 U/L 30-110 Alt (SGPT) 24 U/L 7-35 Ast (Sgot) 22 U/L 5-34 Total Bilirubin 0.6 mg/dL 0.2-1.3 GFR Non- 59 ml/min/1.73m^ Low >=60 GFR >60 ml/min/1.73m^ >=60 Laboratory test finding 06/28/2018 TSH 1.13 mIU/L 0.50-6.00 Free T4 1.09 ng/dL 0.75-1.54 Lipid Profile 06/28/2018 Cholesterol 178 mg/dL 120-200 Triglycerides 165 mg/dL 30-200 HDL Cholesterol 49 mg/dL 30-85 LDL (Calculated) 96 CALC 0-129 VLDL Cholesterol 33 mg/dL 0-50 HDL Risk Factor 3.6 CALC 0.0-4.4 Laboratory test finding 12/02/2017 Creatine Kinase(CK) 119 U/L 10-223 C Reactive Protein 37.34 mg/L High < 5.00 1 Troponin I 0.01 ng/mL <0.04 Blood Culture SEE RESULT BELOW 2 Comp Metabolic Panel 12/02/2017 Sodium 130 mmol/L Low 133-145 Potassium 3.9 mmol/L 3.5-5.0 Chloride 96 mmol/L Low 101-111 Co2 Carbon Dioxide 28 mmol/L 22-32 Anion Gap 6 mmol/L 2-11 Glucose 112 mg/dL High 70-100 Blood Urea Nitrogen 21 mg/dL 6-24 Creatinine 1.15 mg/dL High 0.51-0.95 BUN/Creatinine Ratio 18.3 8-20 Calcium 9.3 mg/dL 8.6-10.3 Total Protein 7.4 g/dL 6.4-8.9 Albumin 4.3 g/dL 3.2-5.2 Globulin 3.1 g/dL 2-4 Albumin/Globulin Ratio 1.4 1-3 Total Bilirubin 0.40 mg/dL 0.2-1.0 Alkaline Phosphatase 48 U/L 34-104 Alt 15 U/L 7-52 Ast 19 U/L 13-39 Egfr Non- 47.5 >60 Egfr 61.1 >60 3 Laboratory test finding 12/02/2017 Partial Thrombo Time 29.7 seconds 26.0 -36.3 PTT Inr/Protime 12/02/2017 Inr 0.94 0.77-1.02 Urinalysis Profile 12/02/2017 Urine Color Yellow Urine Appearance Cloudy Urine Specific [place] 1.016 1.010-1.030 Urine pH 5.0 5-9 Urine Urobilinogen Negative Negative Urine Ketones Negative Negative Urine Protein Negative Negative Urine Leukocytes Trace Negative Urine Blood Negative Negative Urine Nitrite Negative Negative Urine Bilirubin Negative Negative Urine Glucose Negative Negative Urine White Blood Cell 2+(11-20/hpf) Absent Urine Red Blood Cell Absent Absent Urine Bacteria Absent Absent Urine Squamous Epithelial Cell Present Absent Laboratory test 12/02/2017 Urine Culture And SEE RESULT BELOW 4 finding Sensitivities Rapid Influenza A & 12/02/2017 Influenza A Molecular NEGATIVE Negative 5 B Molecular Influenza B Molecular NEGATIVE Negative Laboratory test finding 12/02/2017 Lactic Acid 0.6 mmol/L 0.5-2.0 6 CBC Auto Diff 12/02/2017 White Blood Count 9.8 10^3/uL 3.5-10.8 Red Blood Count 3.93 10^6/uL Low 4.0-5.4 Hemoglobin 11.8 g/dL Low 12.0-16.0 Hematocrit 35 % 35-47 Mean Corpuscular Volume 90 fL 80-97 Mean Corpuscular Hemoglobin 30 pg 27-31 Mean Corpuscular HGB Conc 33 g/dL 31-36 Red Cell Distribution Width 13 % 10.5-15 Platelet Count 186 10^3/uL 150-450 Mean Platelet Volume 8 um3 7.4-10.4 Abs Neutrophils 8.5 10^3/uL High 1.5-7.7 Abs Lymphocytes 0.7 10^3/uL Low 1.0-4.8 Abs Monocytes 0.6 10^3/uL 0-0.8 Abs Eosinophils 0 10^3/uL 0-0.6 Abs Basophils 0 10^3/uL 0-0.2 Abs Nucleated RBC 0 10^3/uL Granulocyte % 85.9 % High 38-83 Lymphocyte % 7.3 % Low 25-47 Monocyte % 6.4 % 1-9 Eosinophil % 0.2 % 0-6 Basophil % 0.2 % 0-2 Nucleated Red Blood Cells % 0 Arterial Blood Gas 12/02/2017 O2 Device non rebreather Fio2 100 PH Arterial 7.38 7.35-7.45 Pco2 Arterial 45 mmHg 35-45 Po2 Arterial 151 mmHg High 80-100 O2 Saturation Arterial 96.2 % 95-98 Base Excess Arterial 1.1 -2.0-2.0 7 Hco3 Arterial 25.8 mmol/L 19-31 Laboratory test finding 12/02/2017 Rapid Influenza A & B SEE RESULT BELOW 8 Antigen Urinalysis Profile 09/26/2017 Urine Color Yellow Urine Appearance Cloudy Urine Specific [place] 1.009 Low 1.010-1.030 Urine pH 5.0 5-9 Urine Urobilinogen Negative Negative Urine Ketones Negative Negative Urine Protein Negative Negative Urine Leukocytes 3+ Negative Urine Blood Negative Negative Urine Nitrite Negative Negative Urine Bilirubin Negative Negative Urine Glucose Negative Negative Urine White Blood Cell 3+(>20/hpf) Absent Urine Red Blood Cell 1+(3-5/hpf) Absent Urine Bacteria Absent Absent Urine Yeast Present Absent Laboratory test 09/26/2017 Urine Culture And SEE RESULT BELOW 9 finding Sensitivities Laboratory test 08/24/2017 TSH 1.64 mIU/L 0.50-6.00 finding Free T4 0.56 ng/dL Low 0.75-1.54 10 Laboratory test finding 04/24/2017 TSH 0.20 mIU/L Low 0.50-6.00 11 Free T4 0.81 ng/dL 0.75-1.54 Comprehensive Metabolic Prof 04/24/2017 Sodium 141 mEq/L 134-149 Potassium 4.3 mEq/L 3.6-5.5 Chloride 97 mEq/L 94-112 Carbon Dioxide 28 mEq/L 21-32 Glucose 92 mg/dL 70-105 BUN 11 mg/dL 6-26 Creatinine 0.8 mg/dL 0.6-1.4 BUN/Creat Ratio 13.8 CALC 8.0-36.0 Calcium 9.1 mg/dL 8.6-10.2 Total Protein 7.2 g/dL 6.4-8.3 Albumin 4.5 g/dL 3.8-5.5 Globulin 2.7 g/dL 2.0-4.8 A/G Ratio 1.7 CALC 0.6-2.3 Alk. Phosphatase 53 U/L 30-110 Alt (SGPT) 17 U/L 7-35 Ast (Sgot) 21 U/L 5-34 Total Bilirubin 0.2 mg/dL 0.2-1.3 GFR Non- >60 ml/min/1.73m^ >=60 GFR >60 ml/min/1.73m^ >=60 Comprehensive Metabolic Prof 01/19/2017 Sodium 141 mEq/L 134-149 Potassium 4.4 mEq/L 3.6-5.5 Chloride 101 mEq/L 94-112 Carbon Dioxide 28 mEq/L 21-32 Glucose 98 mg/dL 70-105 BUN 17 mg/dL 6-26 Creatinine 0.9 mg/dL 0.6-1.4 BUN/Creat Ratio 18.9 CALC 8.0-36.0 Calcium 9.9 mg/dL 8.6-10.2 Total Protein 7.6 g/dL 6.4-8.3 Albumin 4.5 g/dL 3.8-5.5 Globulin 3.1 g/dL 2.0-4.8 A/G Ratio 1.5 CALC 0.6-2.3 Alk. Phosphatase 49 U/L 30-110 Alt (SGPT) 21 U/L 7-35 Ast (Sgot) 27 U/L 5-34 Total Bilirubin 0.4 mg/dL 0.2-1.3 GFR Non- >60 ml/min/1.73m^ >=60 GFR >60 ml/min/1.73m^ >=60 Lipid Profile 01/19/2017 Cholesterol 155 mg/dL 120-200 Triglycerides 138 mg/dL 30-200 HDL Cholesterol 50 mg/dL 30-85 LDL (Calculated) 77 CALC 0-129 VLDL Cholesterol 28 mg/dL 0-50 HDL Risk Factor 3.1 CALC 0.0-4.4 Complete Blood Count 01/19/2017 WBC 6.8 x10^3/UL 3.6-9.6 RBC 4.05 x10^6/UL 3.90-5.70 HGB 12.1 g/dL 12.1-17.2 HCT 37 % 36-50 MCV 90.0 fL 82.2-97.4 MCH 29.9 pg 27.6-33.3 MCHC 33.2 g/dL 33.0-35.5 RDW 13.1 % 11.6-13.7 PLT 231 x10^3/UL 150-400 MPV 7.5 fL 7.4-10.4 Gran # 4.8 x10^3/UL 1.5-7.2 Lymph# 1.7 x10^3/UL 0.7-4.9 [place]# 0.3 x10^3/UL 0.1-0.9 Gran % 68.9 % 42.2-75.2 Lymph % 26.2 % 20.5-51.1 [place]% 4.9 % 1.7-9.3 Laboratory test finding 01/19/2017 TSH 2.18 mIU/L 0.50-6.00 Free T4 0.60 ng/dL Low 0.75-1.54 12 Vitamin B-12 599 pg/mL 230-1050 Laboratory test finding 07/24/2016 Uric Acid 4.6 mg/dL 2.5-9.2 Lyme, Western Blot, Serum 06/30/2016 IgG P93 Ab. Absent 13 IgG P66 Ab. Absent 13 IgG P58 Ab. Absent 13 IgG P45 Ab. Absent 13 IgG P41 Ab. Present 13 IgG P39 Ab. Absent 13 IgG P30 Ab. Present 13 IgG P28 Ab. Absent 13 IgG P23 Ab. Absent 13 IgG P18 Ab. Absent 13 Lyme IgG WB Interp. Negative 13, 14 IgM P41 Ab. Absent 13 IgM P39 Ab. Absent 13 IgM P23 Ab. Absent 13 Lyme IgM WB Interp. Negative 13, 15 Laboratory test finding 06/30/2016 C-Reactive Protein, Quant 3.2 mg/L 0.0 -4.9 13 PDF [id number] SEE IMAGE 13 Laboratory test finding 06/30/2016 Sedimentation Rate 19mm Comprehensive Metabolic Prof 04/14/2016 Sodium 135 mEq/L 134-149 Potassium 4.2 mEq/L 3.6-5.5 Chloride 96 mEq/L 94-112 Carbon Dioxide 27 mEq/L 21-32 Glucose 110 mg/dL High 70-105 16 BUN 20 mg/dL 6-26 Creatinine 0.7 mg/dL 0.6-1.4 BUN/Creat Ratio 28.6 CALC 8.0-36.0 Calcium 9.4 mg/dL 8.6-10.2 Total Protein 7.4 g/dL 6.4-8.3 Albumin 4.5 g/dL 3.8-5.5 Globulin 2.9 g/dL 2.0-4.8 A/G Ratio 1.6 CALC 0.6-2.3 Alk. Phosphatase 57 U/L 30-110 Alt (SGPT) 16 U/L 7-35 Ast (Sgot) 20 U/L 5-34 Total Bilirubin 0.3 mg/dL 0.2-1.3 GFR Non- >60 ml/min/1.73m^ >=60 GFR >60 ml/min/1.73m^ >=60 Lipid Profile 04/14/2016 Cholesterol 182 mg/dL 120-200 Triglycerides 178 mg/dL 30-200 HDL Cholesterol 46 mg/dL 30-85 LDL (Calculated) 100 CALC 0-129 VLDL Cholesterol 36 mg/dL 0-50 HDL Risk Factor 4.0 CALC 0.0-4.4 Complete Blood Count 04/14/2016 WBC 8.0 x10^3/UL 3.6-9.6 RBC 4.18 x10^6/UL 3.90-5.70 HGB 12.5 g/dL 12.1-17.2 HCT 38 % 36-50 MCV 91.0 fL 82.2-97.4 MCH 29.8 pg 27.6-33.3 MCHC 33.0 g/dL 33.0-35.5 RDW 13.2 % 11.6-13.7 PLT 207 x10^3/UL 150-400 MPV 7.4 fL 7.4-10.4 Gran # 5.3 x10^3/UL 1.5-7.2 Lymph# 2.3 x10^3/UL 0.7-4.9 [place]# 0.4 x10^3/UL 0.1-0.9 Gran % 65.6 % 42.2-75.2 Lymph % 28.9 % 20.5-51.1 [place]% 5.5 % 1.7-9.3 Comp Metabolic Panel 05/13/2015 Sodium 132 mmol/L Low 133-145 Potassium 4.1 mmol/L 3.5-5.0 Chloride 97 mmol/L Low 101-111 Co2 Carbon Dioxide 29 mmol/L 22-32 Anion Gap 6 mmol/L 2-11 Glucose 107 mg/dL High 70-100 Blood Urea Nitrogen 9 mg/dL 6-24 Calcium 9.3 mg/dL 8.6-10.3 Total Protein 7.5 g/dL 6.4-8.9 Albumin 4.4 g/dL 3.2-5.2 Globulin 3.1 g/dL 2-4 Albumin/Globulin Ratio 1.4 1-3 Total Bilirubin 0.40 mg/dL 0.2-1.0 Alkaline Phosphatase 50 U/L 34-104 Alt 21 U/L 7-52 Ast 24 U/L 13-39 Creatinine 0.87 mg/dL 0.51-0.95 BUN/Creatinine Ratio 10.3 8-20 Egfr Non- 66.2 >60 Egfr 85.1 >60 17 Urinalysis Profile 05/13/2015 Urine Color Straw Urine Appearance Clear Urine Specific [place] 1.004 Low 1.010-1.030 Urine pH 7.0 5-9 Urine Urobilinogen Negative Negative Urine Ketones Negative Negative Urine Protein Negative Negative Urine Leukocytes Negative Negative Urine Blood Negative Negative Urine Nitrite Negative Negative Urine Bilirubin Negative Negative Urine Glucose Negative Negative Laboratory test finding 05/13/2015 Partial Thrombo Time 32.2 seconds 26.0 -36.3 PTT Troponin I 0.00 ng/mL <0.03 18 CBC Auto Diff 05/13/2015 White Blood Count 7.2 10^3/uL 4.8-10.8 Red Blood Count 3.92 10^6/uL Low 4.0-5.4 Hemoglobin 11.2 g/dL Low 12.0-16.0 Hematocrit 36 % 35-47 Mean Corpuscular Volume 91 fL 80-97 Mean Corpuscular Hemoglobin 29 pg 27-31 Mean Corpuscular HGB Conc 31 g/dL 31-36 Red Cell Distribution Width 13 % 10.5-15 Platelet Count 166 10^3/uL 150-450 Mean Platelet Volume 9 um3 7.4-10.4 Abs Neutrophils 5.5 10^3/uL 1.5-7.7 Abs Lymphocytes 0.8 10^3/uL Low 1.0-4.8 Abs Monocytes 0.8 10^3/uL 0-0.8 Abs Eosinophils 0.1 10^3/uL 0-0.6 Abs Basophils 0 10^3/uL 0-0.2 Abs Nucleated RBC 0 10^3/uL Granulocyte % 75.4 % 38-83 Lymphocyte % 11.2 % Low 25-47 Monocyte % 11.7 % High 1-9 Eosinophil % 1.1 % 0-6 Basophil % 0.6 % 0-2 Nucleated Red Blood Cells % 0 Laboratory test finding 05/13/2015 Blood Culture SEE RESULT 19 BELOW Laboratory test finding 05/13/2015 Urine Culture And SEE RESULT 20 Sensitivities BELOW Inr/Protime 05/13/2015 Inr 0.97 0.78-1.07 Laboratory test finding 05/13/2015 Lactic Acid 1.2 mmol/L 0.5-2.2 Comprehensive Metabolic 03/08/2015 Sodium 134 mEq/L 134-149 Prof Potassium 4.5 mEq/L 3.6-5.5 Chloride 96 mEq/L 94-112 Carbon Dioxide 29 mEq/L 21-32 Glucose 88 mg/dL 70-105 BUN 17 mg/dL 6-26 Creatinine 0.7 mg/dL 0.6-1.4 BUN/Creat Ratio 24.3 CALC 8.0-36.0 Calcium 9.6 mg/dL 8.6-10.2 Total Protein 8.3 g/dL 6.4-8.3 Albumin 4.2 g/dL 3.8-5.5 Globulin 4.1 g/dL 2.0-4.8 A/G Ratio 1.0 CALC 0.6-2.3 Alk. Phosphatase 52 U/L 30-110 Alt (SGPT) 26 U/L 7-35 Ast (Sgot) 28 U/L 5-34 Total Bilirubin 0.2 mg/dL 0.2-1.3 CBC Electronic ([facility]) 03/08/2015 WBC 7.4 3.6-9.6 RBC 3.66 Low 3.90-5.70 Hemoglobin ([facility]/CMC/CTX) 11.1 g/dL Low 12.1 - 17.2 Hematocrit ([facility]/CMC/CTX) 33.7 % Low 36.1 - 50.3 Platelets 412 10^3/ul High 150-400 Lymph% 34.6 % 17.0-48.0 Mixed% 6.7 Neutrophils % 58.7 Mean Corpuscular Vol 92 82.2-97.4 Mean Corpuscular Hemoglobin 30.4 27.6-33.3 Mean Corpuscular Hemo Concen 33.0 32.0-36.0 RDW 14.8 High 11.6-13.7 Mean Platelet Volume 6.9 5.5-11.0 Ua - Micro ([facility]) 03/08/2015 Appearance CLEAR Color YELLOW Glucose, Urine ([facility]/CMC/CTX) NEG Bilirubin NEG Ketones NEG SP Grav 1.010 Blood NEG PH 6.0 Protein NEG Urobil 0.2 Nitrite NEG Leukocytes ([facility]ma/CMC/[facility]) TRACE Hyaline - /Lpf Granular - /Lpf WBC ([facility]) 2-3 RBC - Mucus - /Lpf Epith occass /Lpf Bacteria trace /Hpf Amorphous - /Lpf Crystals, Fluid ([facility]ma/CMC/CTX) - Z#Comments - Laboratory test 02/15/2015 Troponin I 0.02 ng/mL <0.03 21 finding Inr/Protime 02/15/2015 Inr 1.08 High 0.78-1.07 Laboratory test 02/15/2015 Activated Partial 32.0 seconds 26.0-36.3 finding Thrombo Time CBC Auto Diff 02/15/2015 White Blood Count 15.4 10^3/uL High 4.8-10.8 Red Blood Count 3.60 10^6/uL Low 4.0-5.4 Hemoglobin 11.1 g/dL Low 12.0-16.0 Hematocrit 34 % Low 35-47 Mean Corpuscular Volume 94 fL 80-97 Mean Corpuscular Hemoglobin 31 pg 27-31 Mean Corpuscular HGB Conc 33 g/dL 31-36 Red Cell Distribution Width 16 % High 10.5-15 Platelet Count 270 10^3/uL 150-450 Mean Platelet Volume 8 um3 7.4-10.4 Abs Neutrophils 11.7 10^3/uL High 1.5-7.7 Abs Lymphocytes 1.7 10^3/uL 1.0-4.8 Abs Monocytes 2.0 10^3/uL High 0-0.8 Abs Eosinophils 0 10^3/uL 0-0.6 Abs Basophils 0 10^3/uL 0-0.2 Abs Nucleated RBC 0 10^3/uL Granulocyte % 76.0 % 38-83 Lymphocyte % 10.9 % Low 25-47 Monocyte % 12.7 % High 1-9 Eosinophil % 0.1 % 0-6 Basophil % 0.3 % 0-2 Nucleated Red Blood Cells % 0 Urinalysis Profile 02/15/2015 Urine Color Yellow Urine Appearance Clear Urine Specific [place] 1.012 1.010-1.030 Urine pH 5.0 5-9 Urine Urobilinogen Negative Negative Urine Ketones Negative Negative Urine Protein Negative Negative Urine Leukocytes Negative Negative Urine Blood Negative Negative Urine Nitrite Negative Negative Urine Bilirubin Negative Negative Urine Glucose Negative Negative Laboratory test 02/15/2015 TSH (Thyroid 0.48 IU/mL 0.34-5.60 finding Stimulating Horm) Laboratory test 02/15/2015 Ammonia 31 mol/L 16-53 finding Laboratory test 02/15/2015 Lactic Acid 1.0 mmol/L 0.5-2.2 finding Urine Drug SCR ED & 02/15/2015 Amphetamine Ur Screen None Detected None Detect Pain Clinic Barbiturates Urine Screen None Detected None Detect Benzodiazepine Urine Screen Presumptive Posi <SEE NOTE> None Detect 22 Urine Cannabinoids Screen None Detected None Detect Urine Cocaine Screen None Detected None Detect Urine Opiates Screen None Detected None Detect Urine Phencyclidine Screen None Detected None Detect 23 Comp Metabolic Panel 02/15/2015 Sodium 129 mmol/L Low 133-145 Potassium 4.0 mmol/L 3.5-5.0 Chloride 96 mmol/L Low 101-111 Co2 Carbon Dioxide 26 mmol/L 22-32 Anion Gap 7 mmol/L 2-11 Glucose 116 mg/dL High 70-100 Blood Urea Nitrogen 13 mg/dL 6-24 Creatinine 0.75 mg/dL 0.51-0.95 BUN/Creatinine Ratio 17.3 8-20 Calcium 9.3 mg/dL 8.6-10.3 Total Protein 7.4 g/dL 6.4-8.9 Albumin 4.0 g/dL 3.2-5.2 Globulin 3.4 g/dL 2-4 Albumin/Globulin Ratio 1.2 1-3 Total Bilirubin 0.50 mg/dL 0.2-1.0 Alkaline Phosphatase 48 U/L 34-104 Alt 13 U/L 7-52 Ast 21 U/L 13-39 Egfr Non- 78.6 >60 Egfr 101.0 >60 24 CBC Auto Diff 01/10/2015 White Blood Count 10.0 10^3/uL 4.8-10.8 Red Blood Count 3.00 10^6/uL Low 4.0-5.4 Hemoglobin 9.0 g/dL Low 12.0-16.0 Hematocrit 28 % Low 35-47 Mean Corpuscular Volume 93 fL 80-97 Mean Corpuscular Hemoglobin 30 pg 27-31 Mean Corpuscular HGB Conc 32 g/dL 31-36 Red Cell Distribution Width 13 % 10.5-15 Platelet Count 204 10^3/uL 150-450 Mean Platelet Volume 9 um3 7.4-10.4 Abs Neutrophils 7.1 10^3/uL 1.5-7.7 Abs Lymphocytes 1.7 10^3/uL 1.0-4.8 Abs Monocytes 0.9 10^3/uL High 0-0.8 Abs Eosinophils 0.1 10^3/uL 0-0.6 Abs Basophils 0 10^3/uL 0-0.2 Abs Nucleated RBC 0 10^3/uL Granulocyte % 71.3 % 38-83 Lymphocyte % 17.3 % Low 25-47 Monocyte % 9.4 % High 1-9 Eosinophil % 1.5 % 0-6 Basophil % 0.5 % 0-2 Nucleated Red Blood Cells % 0 Stool For Blood 01/10/2015 Stool Occult Blood (SEE NOTE) 25 Urinalysis Profile 01/10/2015 Urine Color Straw Urine Appearance Clear Urine Specific [place] 1.013 1.010-1.030 Urine pH 5.0 5-9 Urine Urobilinogen Negative Negative Urine Ketones Negative Negative Urine Protein Negative Negative Urine Leukocytes Negative Negative Urine Blood Negative Negative Urine Nitrite Negative Negative Urine Bilirubin Negative Negative Urine Glucose Negative Negative Laboratory test finding 01/10/2015 Troponin I 0.00 ng/mL <0.03 26 C Reactive Protein 41.06 mg/L High < 5.00 27 Comp Metabolic Panel 01/10/2015 Sodium 130 mmol/L Low 133-145 Potassium 4.4 mmol/L 3.5-5.0 Chloride 100 mmol/L Low 101-111 Co2 Carbon Dioxide 27 mmol/L 22-32 Anion Gap 3 mmol/L 2-11 Glucose 116 mg/dL High 70-100 Blood Urea Nitrogen 27 mg/dL High 6-24 Creatinine 1.20 mg/dL High 0.51-0.95 BUN/Creatinine Ratio 22.5 High 8-20 Calcium 8.7 mg/dL 8.6-10.3 Total Protein 6.3 g/dL Low 6.4-8.9 Albumin 3.8 g/dL 3.2-5.2 Globulin 2.5 g/dL 2-4 Albumin/Globulin Ratio 1.5 1-3 Total Bilirubin 0.40 mg/dL 0.2-1.0 Alkaline Phosphatase 41 U/L 34-104 Alt 9 U/L 7-52 Ast 14 U/L 13-39 Egfr Non- 45.7 >60 Egfr 58.7 >60 28 Inr/Protime 01/10/2015 Inr 13.15 High 0.78-1.07 29 Type & Screen 01/10/2015 Patient Blood Type AB Positive Antibody Screen NEGATIVE Laboratory test finding 01/10/2015 Lactic Acid 1.4 mmol/L 0.5-2.2 Amylase 20 U/L Low 29-103 Lipase 7 U/L Low 11.0-82.0 Blood Culture (SEE NOTE) 30 Laboratory test finding 11/05/2014 Inr ([facility]) 1.7 Low 2-3 Lipid Profile 10/05/2014 Cholesterol 274 mg/dL High 120-200 Triglycerides 172 mg/dL 30-200 HDL Cholesterol 41 mg/dL 30-85 LDL (Calculated) 199 CALC High 0-129 VLDL Cholesterol 34 mg/dL 0-50 HDL Risk Factor 6.7 CALC High 0.0-4.4 Complete Blood Count 10/05/2014 WBC 7.1 x10^3/UL 3.6-9.6 RBC 4.24 x10^6/UL 3.90-5.70 HGB 13.2 g/dL 12.1-17.2 HCT 40 % 36-50 MCV 94.0 fL 82.2-97.4 MCH 31.1 pg 27.6-33.3 MCHC 33.1 g/dL 33.0-35.5 RDW 11.7 % 11.6-13.7 PLT 299 x10^3/UL 150-400 MPV 7.3 fL Low 7.4-10.4 Gran # 4.7 x10^3/UL 1.5-7.2 Lymph# 2.1 x10^3/UL 0.7-4.9 [place]# 0.3 x10^3/UL 0.1-0.9 Gran % 65.6 % 42.2-75.2 Lymph % 29.7 % 20.5-51.1 [place]% 4.7 % 1.7-9.3 Laboratory test finding 10/05/2014 Inr ([facility]) 2.8 2-3 Comprehensive Metabolic Prof 10/05/2014 Sodium 136 mEq/L 134-149 Potassium 4.3 mEq/L 3.6-5.5 Chloride 99 mEq/L 94-112 Carbon Dioxide 27 mEq/L 21-32 Glucose 109 mg/dL High 70-105 31 BUN 12 mg/dL 6-26 Creatinine 0.7 mg/dL 0.6-1.4 BUN/Creat Ratio 17.1 CALC 8.0-36.0 Calcium 9.4 mg/dL 8.6-10.2 Total Protein 7.1 g/dL 6.4-8.3 Albumin 4.3 g/dL 3.8-5.5 Globulin 2.8 g/dL 2.0-4.8 A/G Ratio 1.5 CALC 0.6-2.3 Alk. Phosphatase 58 U/L 30-110 Alt (SGPT) 23 U/L 7-35 Ast (Sgot) 26 U/L 5-34 Total Bilirubin 0.2 mg/dL 0.2-1.3 Laboratory test finding 04/14/2014 Inr ([facility]) 3.7 High 2-3 Ua - Non Micro ([facility]) 02/23/2014 Appearance clear Color yellow Glucose, Urine ([facility]/CMC/CTX) negative Bilirubin negative Ketones negative SP Grav 1.020 Blood negative PH 5.5 Protein negative Urobil 0.2 Nitrite negative Leukocytes (a/[facility]) negative Laboratory test finding 02/23/2014 Inr (a) 3.0 2-3 Comprehensive Metabolic Prof 02/23/2014 Sodium 135 mEq/L 134-149 Potassium 4.0 mEq/L 3.6-5.5 Chloride 98 mEq/L 94-112 Carbon Dioxide 26 mEq/L 21-32 Glucose 105 mg/dL 70-105 BUN 15 mg/dL 6-26 Creatinine 0.9 mg/dL 0.6-1.4 BUN/Creat Ratio 16.7 CALC 8.0-36.0 Calcium 10.1 mg/dL 8.6-10.2 Total Protein 7.2 g/dL 6.3-8.1 Albumin 4.7 g/dL 3.8-5.5 Globulin 2.5 g/dL 2.0-4.8 A/G Ratio 1.9 CALC 0.6-2.3 Alk. Phosphatase 51 U/L 30-110 Alt (SGPT) 21 U/L 7-35 Ast (Sgot) 26 U/L 5-34 Total Bilirubin 0.4 mg/dL 0.2-1.3 Lipid Profile 02/23/2014 Cholesterol 307 mg/dL High 120-200 Triglycerides 166 mg/dL 30-200 HDL Cholesterol 46 mg/dL 30-85 LDL (Calculated) 228 CALC High 0-129 VLDL Cholesterol 33 mg/dL 0-50 HDL Risk Factor 6.7 CALC High 0.0-4.4 Laboratory test finding 10/17/2013 Inr ([facility]ma) 1.0 Low 2-3 Laboratory test finding 09/12/2013 Inr ([facility]ma) 1.9 Low 2.0-3.0 Laboratory test finding 08/29/2013 Blood Urea Nitrogen 9 mg/dL 6-24 Creatinine 08/29/2013 Creatinine 0.80 mg/dL 0.50-1.40 Egfr Non- 73.2 >60 Egfr 94.1 >60 32 Comprehensive Metabolic Prof 08/15/2013 Albumin 4.2 g/dL 3.8-5.5 Alk. Phos. 52 U/L 30-110 Alt (SGPT) 19 U/L 7-35 Ast (Sgot) 24 U/L 5-34 BUN 12 mg/dL 6-26 Calcium 8.8 mg/dL 8.6-10.2 Chloride 99 mEq/L 94-112 Creatinine 0.9 mg/dL 0.6-1.4 Carbon Dioxide 29 mEq/L 21-32 Glucose 90 mg/dL 70-105 Sodium 138 mEq/L 134-149 Total Bilirubin 0.5 mg/dL 0.2-1.3 Total Protein 6.6 g/dL 6.3-8.1 Potassium 3.8 mEq/L 3.6-5.5 Globulin 2.5 g/dL 2.0-4.8 A/G Ratio 1.7 Calc 0.6-2.3 BUN/Creat Ratio 14.1 Calc 8.0-36.0 Lipid Profile 08/15/2013 Cholesterol 233 mg/dL High 120-200 HDL 45 mg/dL 30-85 Triglycerides 127 mg/dL 30-200 HDL Risk Factor 5.2 CALC High 0.0-4.4 LDL (Calculated) 163 CALC High 0-129 VLDL (Calculated) 25 mg/dL 0-50 CBC Electronic (Fma) 08/15/2013 WBC 6.4 3.6-9.6 RBC 4.21 3.90-5.70 Hemoglobin (Fma/CMC/CTX) 13.2 g/dL 12.1 - 17.2 Hematocrit (Fma/CMC/CTX) 39.7 % 36.1 - 50.3 Platelets 275 10^3/ul 150-400 Lymph% 32.0 20.5-51.1 Mixed% 4.8 Neutrophils % 63.2 Mean Corpuscular Vol 94 82.2-97.4 Mean Corpuscular Hemoglobin 31.4 27.6-33.3 Mean Corpuscular Hemo Concen 33.3 32.0-36.0 RDW 11.3 Low 11.6-13.7 Mean Platelet Volume 7.4 6.5-11.0 Laboratory test finding 08/15/2013 Inr (Fma) 1.9 Low 2-3 Laboratory test finding 01/19/2012 Inr (Fma) 4.5 High 2.0-3.0 Laboratory test finding 07/27/2011 Inr (Fma) 1.3 Low 2.0-3.0 Laboratory test finding 05/30/2011 Sed Rate (Fma/CMC/Centrex) 2 mm Inr (Fma) 2.5 2.0-3.0 CBC Electronic (a) 05/30/2011 WBC 10.4 High 3.6-9.6 RBC 4.84 3.90-5.70 Hemoglobin (Fma/CMC/CTX) 16.2 g/dL 12.1 - 17.2 Hematocrit (Fma/CMC/CTX) 47.9 % 36.1 - 50.3 Platelets 266 10^3/ul 150-400 Lymph% 21.3 20.5-51.1 Mixed% 6.0 Neutrophils % 72.7 Mean Corpuscular Vol 99 High 82.2-97.4 Mean Corpuscular Hemoglobin 33.4 High 27.6-33.3 Mean Corpuscular Hemo Concen 33.8 32.0-36.0 RDW 11.4 Low 11.6-13.7 Mean Platelet Volume 7.4 6.5-11.0 Laboratory test finding 05/30/2011 C-Reactive Protein <0.1 mg/L 0.0-5.0 33 Laboratory test finding 05/15/2011 Inr (Fma) 1.2 Low 2.0-3.0 CBC Electronic (a) 05/15/2011 WBC 6.4 3.6-9.6 RBC 4.52 3.90-5.70 Hemoglobin (Fma/CMC/CTX) 15.1 g/dL 12.1 - 17.2 Hematocrit (Fma/CMC/CTX) 44.6 % 36.1 - 50.3 Platelets 236 10^3/ul 150-400 Lymph% 24.1 20.5-51.1 Mixed% 4.0 Neutrophils % 71.9 Mean Corpuscular Vol 99 High 82.2-97.4 Mean Corpuscular Hemoglobin 33.5 High 27.6-33.3 Mean Corpuscular Hemo Concen 33.9 32.0-36.0 RDW 12.1 11.6-13.7 Mean Platelet Volume 7.9 6.5-11.0 Comprehensive Metabolic Prof 05/15/2011 Albumin 4.6 g/dL 3.8-5.5 Alk. Phos. 53 U/L 30-110 Alt (SGPT) 13 U/L 7-35 Ast (Sgot) 19 U/L 5-34 BUN 12 mg/dL 6-26 Calcium 10.0 mg/dL 8.6-10.2 Chloride 97 mEq/L 94-112 Creatinine 0.7 mg/dL 0.6-1.4 Carbon Dioxide 27 mEq/L 21-32 Glucose 110 mg/dL High 70-105 34 Sodium 135 mEq/L 134-149 Total Bilirubin 0.4 mg/dL 0.2-1.3 Total Protein 6.7 g/dL 6.3-8.1 Potassium 4.1 mEq/L 3.6-5.5 Globulin 2.1 g/dL 2.0-4.8 A/G Ratio 2.2 Calc 0.6-2.2 BUN/Creat Ratio 17.9 Calc 8.0-36.0 Laboratory test finding 09/26/2010 Inr (a) 1.1 Low 2.0-3.0 Comprehensive Metabolic Prof 07/01/2010 Albumin 4.5 g/dL 3.8-5.5 Alk. Phos. 43 U/L 30-110 Alt (SGPT) 16 U/L 7-35 Ast (Sgot) 22 U/L 5-34 BUN 12 mg/dL 6-26 Calcium 9.7 mg/dL 8.6-10.2 Chloride 97 mEq/L 94-112 Creatinine 0.7 mg/dL 0.6-1.4 Carbon Dioxide 32 mEq/L 21-32 Glucose 107 mg/dL High 70-105 35 Sodium 137 mEq/L 134-149 Total Bilirubin 0.6 mg/dL 0.2-1.3 Total Protein 6.9 g/dL 6.3-8.1 Potassium 4.4 mEq/L 3.6-5.5 Globulin 2.4 g/dL 2.0-4.8 A/G Ratio 1.8 Calc 0.6-2.2 BUN/Creat Ratio 16.8 Calc 8.0-36.0 Laboratory test finding 07/01/2010 Free T4 0.75 ng/dL 0.75-1.54 TSH 0.61 mIU/L 0.50-6.00 CBC (a) 07/01/2010 WBC 6.7 3.6-9.6 RBC 5.54 3.90-5.70 Hemoglobin (Fma/CMC/CTX) 16.8 g/dL 12.1 - 17.2 Hematocrit (Fma/CMC/CTX) 52.8 % High 36.1 - 50.3 Mean Corpuscular Vol 100.8 High 82.2-97.4 Mean Corpuscular Hemaglobin 32.1 27.6-33.3 Mean Corpuscular Hemo Concen 31.8 Low 33.0-36.0 Platelets 281 10^3/ul 150-400 Lymph% 30.4 20.5-51.1 Mixed% 8.0 Neutrophils % 61.6 RDW 13.2 11.6-13.7 Mean Platelet Volume 10.0 7.4-10.4 CBC With Electronic Diff Stat 02/08/2010 White Blood Count 9.2 CUMM 4.8- 10.8 Red Cell Count 4.94 CUMM 4.2-5.4 Hemoglobin 16.5 g/dL High 12.0-16.0 Hematocrit 49 % High 35-47 Mean Corpuscular Volume 99 um3 High 79-97 Mean Corpuscular Hemoglob 33 pg High 27-31 Mean Corpuscular HGB Cone 34 g/dL 32-36 Redcell Distribution WDTH 14 % 10.5-15 Platelet Count 276 CUMM 150-450 Mean Platelet Volume 7.6 um3 7.4-10.4 Gran % 66.0 % 38-83 Lymph % 24.7 % Low 25-47 Mononuclear % 8.0 % 1-9 Eosinophil % 0.6 % 0-6 Basophil % 0.7 % 0-2 Abs Lymphs 2.3 1.0-4.8 Abs Mononuclear 0.7 0-0.8 Absolute Neutrophil Count 6.1 1.5-7.7 Abs Eosinophils 0.1 0-0.6 Abs Basophils 0.1 0-0.2 Protime Stat 02/08/2010 Inr 1.15 High 0.97-1.03 36 Protime 13.6 SEC High 11.5-12.2 37 Comp Stat 02/08/2010 Sodium 133 mmol/L Low 135-145 Potassium 3.7 mmol/L 3.5-5.0 Chloride 95 mmol/L Low 101-111 Co2 (Carbon Dioxide) 32.0 mmol/L 22-32 Anion Gap 6.0 mmol/L 2-11 38 Glucose 102 mg/dL High 70-100 39 BUN 6 mg/dL 6-24 Creatinine 0.56 mg/dL 0.50-1.40 One Over Creatinine 1.70 BUN/Creatinine Ratio 10.7 8-20 Calcium 9.7 mg/dL 8.1-9.9 40 Total Protein 8.0 GM/DL 6.2-8.1 Albumin 4.6 GM/DL 3.6-5.4 Globulin 3.4 GM/DL 2-4 Albumin/Globulin Ratio 1.4 1-3 Bilirubin Total 0.8 mg/dL 0.4-1.5 41 Alkaline Phosphatase 55 U/L 30-110 Alt (SGPT) 21 U/L 14-54 Ast (Sgot) 30 U/L 12-42 eGFR Non- 119.0 > 60 eGFR 144.0 > 60 42 Laboratory test finding 02/08/2010 Troponin-I (TnI) 0.01 NG/ML 43 TSH 2.29 MIU/ML 0.34-5.60 Laboratory test finding 09/01/2009 Stool For Blood NEGATIVE Negative GC/Chlamydia Dna Probe 09/01/2009 GC By Aptima NEGATIVE Negative 44 CHL By Aptima NEGATIVE Negative 45 Wet Prep(Fma,CMC,CX) 09/01/2009 Wet Prep N^NONE SEEN^WPCL <SEE NOTE> 46 Comp Metabolic Panel 09/01/2009 Sodium 138 mmol/L 135-145 Potassium 4.5 mmol/L 3.5-5.0 Chloride 100 mmol/L Low 101-111 Co2 (Carbon Dioxide) 31.0 mmol/L 22-32 Anion Gap 7.0 mmol/L 2-11 47 Glucose 92 mg/dL 70-100 48 BUN 10 mg/dL 6-24 Creatinine 0.60 mg/dL 0.50-1.40 One Over Creatinine 1.60 BUN/Creatinine Ratio 16.7 8-20 Calcium 9.7 mg/dL 8.1-9.9 49 Total Protein 6.6 GM/DL 6.2-8.1 Albumin 3.9 GM/DL 3.6-5.4 Globulin 2.7 GM/DL 2-4 Albumin/Globulin Ratio 1.4 1-3 Bilirubin Total 1.0 mg/dL 0.4-1.5 50 Alkaline Phosphatase 59 U/L 30-110 Alt (SGPT) 18 U/L 14-54 Ast (Sgot) 21 U/L 12-42 eGFR Non- 109.9 > 60 eGFR 133.0 > 60 51 Urinalysis 09/01/2009 Ua Color YELLOW Appearance-Urine CLEAR Specific [place]-Ur 1.006 Low 1.010-1.030 Esterase-Urine NEGATIVE Negative Nitrite NEGATIVE Negative Hwmxmldujvqw-Vb-OBB NEGATIVE Negative Protein-Urine NEGATIVE Negative PH-Urine 6.5 5-9 Blood-Urine NEGATIVE Negative Ketones-Urine NEGATIVE Negative Bilirubin-Ur NEGATIVE Negative Glucose-Urine NEGATIVE Negative CBC With Manual Diff Stat 09/01/2009 White Blood Count 6.9 CUMM 4.8-10.8 Red Cell Count 4.93 CUMM 4.2-5.4 Hemoglobin 15.6 g/dL 12.0-16.0 Hematocrit 47 % 35-47 Mean Corpuscular Volume 95 um3 79-97 Mean Corpuscular Hemoglob 32 pg High 27-31 Mean Corpuscular HGB Cone 33 g/dL 32-36 Redcell Distribution WDTH 13 % 10.5-15 Platelet Count 228 CUMM 150-450 Mean Platelet Volume 8.1 um3 7.4-10.4 Polysegmented Neutrophil 60 % 38-83 Band Neutrophil 2 % 0-8 Lymphocyte 27 % 25-47 Monocyte 7 % 0-13 Eosenophil 2 % 0-6 Atypical Lymph 2 % 0-6 Absolute Neutrophil Count 4.2 Anisocytosis SLIGHT Macrocytosis SLIGHT Laboratory test finding 09/01/2009 Erythrocyte Sed Rate 11 MM/HR 0-30 Comp Stat 03/09/2009 Sodium 138 mmol/L 135-145 Potassium 3.9 mmol/L 3.5-5.0 Chloride 102 mmol/L 101-111 Co2 (Carbon Dioxide) 29.0 mmol/L 22-32 Anion Gap 7.0 mmol/L 2-11 52 Glucose 88 mg/dL 70-100 53 BUN 11 mg/dL 6-24 Creatinine 0.70 mg/dL 0.50-1.40 One Over Creatinine 1.40 BUN/Creatinine Ratio 15.7 8-20 Calcium 8.9 mg/dL 8.1-9.9 54 Total Protein 6.0 GM/DL Low 6.2-8.1 Albumin 3.6 GM/DL 3.6-5.4 Globulin 2.4 GM/DL 2-4 Albumin/Globulin Ratio 1.5 1-3 Bilirubin Total 0.8 mg/dL 0.4-1.5 55 Alkaline Phosphatase 45 U/L 30-110 Alt (SGPT) 23 U/L 14-54 Ast (Sgot) 26 U/L 12-42 Laboratory test finding 03/09/2009 Amylase Stat 33 U/L 30-125 Lipase 32 U/L 22-51 CBC With Electronic Diff Stat 03/09/2009 White Blood Count 7.5 CUMM 4.8- 10.8 Red Cell Count 4.82 CUMM 4.2-5.4 Hemoglobin 15.0 g/dL 12.0-16.0 Hematocrit 45 % 35-47 Mean Corpuscular Volume 93 um3 79-97 Mean Corpuscular Hemoglob 31 pg 27-31 Mean Corpuscular HGB Cone 34 g/dL 32-36 Redcell Distribution WDTH 12 % 10.5-15 Platelet Count 228 CUMM 150-450 Mean Platelet Volume 7.8 um3 7.4-10.4 Gran % 54.8 % 38-83 Lymph % 30.9 % 25-47 Mononuclear % 11.4 % High 1-9 Eosinophil % 1.7 % 0-6 Basophil % 1.2 % 0-2 Abs Lymphs 2.3 1.0-4.8 Abs Mononuclear 0.8 0-0.8 Absolute Neutrophil Count 4.1 1.5-7.7 Abs Eosinophils 0.1 0-0.6 Abs Basophils 0.1 0-0.2 Protime Stat 03/09/2009 Protime 13.7 High 10.9-13.3 Inr 1.28 56 PTT (Aptt) Stat 03/09/2009 PTT (Aptt) 29.6 High 20.1-28.2 57 Urinalysis W/Microscopic Stat 03/09/2009 Ua Color YELLOW Appearance-Urine CLEAR Specific [place]-Ur 1.007 Low 1.010-1.030 Esterase-Urine 1+ Negative Nitrite NEGATIVE Negative Ynlagcbmjsnq-Am-PSF NEGATIVE Negative Protein-Urine NEGATIVE Negative PH-Urine 5.5 5-9 Blood-Urine NEGATIVE Negative Ketones-Urine NEGATIVE Negative Bilirubin-Ur NEGATIVE Negative Glucose-Urine NEGATIVE Negative WBC-Urine 2-5 0-5 RBC-Urine RARE 0-2 Epith Cells-Ur FEW Urine Culture 03/09/2009 Urine Culture NG 58 Sensitivity Sensitivi Laboratory test 02/11/2009 Inr (Fma) 1.3 Low 2.0-3.0 finding Rapid Strep A 02/03/2009 Rapid Strep A The director of revenue 59 <SEE NOTE> Laboratory test 02/03/2009 Throat-Beta Strep NF 60 finding Culture Laboratory test 09/25/2007 Inr 1.2 Low 2.0-3.0 finding (Fma/CMC/Centrex) Laboratory test 05/08/2007 Inr 1.1 Low 2.0-3.0 finding (Fma/CMC/Centrex) Laboratory test 04/17/2007 Inr 4.3 High 2.0-3.0 finding (Fma/CMC/Centrex) Laboratory test 03/27/2007 Inr 1.4 High 0.9-1.1 finding (Fma/CMC/Centrex) Laboratory test 03/11/2007 Inr 1.1 Low 2.0-3.0 finding (Fma/CMC/Centrex) Laboratory test 02/18/2007 Inr 1.7 High 0.9-1.1 finding (Fma/CMC/Centrex) Laboratory test 02/04/2007 Inr 2.4 2.0-3.0 finding (Fma/CMC/Centrex) PT/Inr (Fma/CMC) 01/28/2007 PT--Therapy 12.3 SEC 10-14 (Fma/CMC/Centrex) Inr (Fma/CMC/Centrex) 1.0 Low 2.0-3.0 Basic Metabolic Panel Stat 11/29/2006 One Over Creatinine 2.00 Anion Gap 9.0 mmol/L 2-11 61 BUN 14 mg/dL 6-24 Calcium 9.5 mg/dL 8.7-10.2 Chloride 100 mmol/L Low 101-111 Co2 (Carbon Dioxide) 30.0 mmol/L 22-32 Glucose 97 mg/dL 70-105 Potassium 3.9 mmol/L 3.5-5.0 Sodium 139 mmol/L 135-145 BUN/Creatinine Ratio 28.0 High 8-20 Creatinine 0.5 mg/dL 0.5-1.4 CBC With Electronic Diff Stat 11/29/2006 White Blood Count 8.4 CUMM 4.8- 10.8 Abs Basophils 0 0-0.2 Abs Eosinophils 0.2 0-0.6 Absolute Neutrophil Count 5.6 1.5-7.7 Abs Lymphs 1.9 1.0-4.8 Abs Mononuclear 0.6 0-0.8 Basophil % 0.3 % 0-2 Hematocrit 42 % 35-47 Hemoglobin 14.3 g/dL 12.0-16.0 Eosinophil % 2.6 % 0-6 Gran % 67.0 % 38-83 Lymph % 22.7 % 20-45 Mean Corpuscular HGB Cone 34 g/dL 32-36 Mean Corpuscular Hemoglob 32 pg High 27-31 Mean Corpuscular Volume 94 um3 79-97 Mean Platelet Volume 7.9 um3 7.4-10.4 Mononuclear % 7.4 % 1-9 Platelet Count 272 CUMM 150-450 Red Cell Count 4.45 CUMM 4.2-5.4 Redcell Distribution WDTH 12 % 10.5-15 Protime 11/29/2006 Inr 2.10 62 Protime 17.4 High 10.9-13.1 Laboratory test finding 11/29/2006 PTT (Aptt) 34.9 High 20.4-29.5 63 PT/Inr (Fma/CMC) 11/26/2006 PT--Therapy 16.6 SEC High 10-14 (Fma/CMC/Centrex) Inr (Fma/CMC/Centrex) 1.8 Low 2.0-3.0 PT/Inr (a/CMC) 11/19/2006 PT--Therapy (Fma/CMC/Centrex) 14.0 SEC 10-14 Inr (Fma/CMC/Centrex) 1.3 Low 2.0-3.0 Laboratory test finding 08/15/2006 [facility] Laboratory test finding 08/15/2006 [facility] SEE IMAGE Basic Metabolic ([facility] 02/19/2005 Sodium 140 mmol/L 135-145 Potassium 3.6 mmol/L 3.5-5.0 Chloride 101 mmol/L 101-111 Co2 30.0 mmol/L 22-32 Anion Gap 9.0 mmol/L 2-11 Glucose, Serum (Fma/CMC/CTX) 108 mg/dL High 70-105 BUN (Fma/CMC/Centrex) 8 mg/dL 6-24 Creatinine (Fma/CMC/CTX) 0.7 mg/dL 0.5-1.4 BUN/Creatinin Ratio 11.4 8-20 Calcium (Fma/CMC/Centrex) 10.2 mg/dL 8.7-10.2 PT/Inr ([facility]/CMC) 02/19/2005 PT--Therapy (Protime/Centrex) 11.5 SEC 11.2- 13.7 Inr 0.87 64 Laboratory test finding 02/19/2005 Aptt 28.9 SEC 21.6-31.2 D Dimer Quant ([facility] 540 ng/ML High <230 CBC Electronic ([facility] 02/19/2005 WBC 10.6 CUMM 4.8-10.8 RBC 4.40 CUMM 4.2-5.4 Hemoglobin (Fma/CMC/CTX) 14.0 g/dL 12.0-16.0 Hematocrit (a/CMC/CTX) 41 % 35-47 Mean Corpuscular Vol 94 UM3 79-97 Mean Corpuscular Hemaglobin 32 pg High 27-31 Mean Corpuscular Hemo Concen 34 g/dL 32-36 RDW 13 10.5-15 Platelets 439 CUMM 150-450 Mean Platelet Volume 7.7 7.4-10.4 Granulocytes 77.3 % 38-83 Lymphocytes 17.1 % Low 20-45 Monocytes 4.7 % 1-9 Eosinophil 0.2 0-6 Basophil% 0.7 0-2 Abs Lymphs 1.8 1.0-4.8 Abs Mononuclear 0.5 0-0.8 Abs Grans 8.2 High 1.5-7.7 Abs Eosinophils 0 0-0.6 Abs Basophils 0.1 0-0.2 Lipid Profile ([facility]) Female 01/13/2005 Cholesterol 228 mg/dL High 120-200 Triglyceride 84 mg/dL 30-200 HDL-Chol 48 mg/dL 30-85 LDL, Calculated ([facility] 164 CALC High 0-129 LDL, Direct - mg/dL 0-130 VLDL 17 0-50 HDL Risk Factor ([facility]) 4.8 CALC 4.2-7.0 Basic Metabolic ([facility]) 12/06/2004 Sodium 143 mmol/L 135-145 Potassium 4.4 mmol/L 3.5-5.0 Chloride 105 mmol/L 101-111 Co2 31.0 mmol/L 22-32 Anion Gap 7.0 mmol/L 2-11 Glucose, Serum (a/CMC/CTX) 98 mg/dL 70-105 BUN (a/CMC/Centrex) 10 mg/dL 6-24 Creatinine (a/CMC/CTX) 0.8 mg/dL 0.5-1.4 BUN/Creatinin Ratio 12.5 8-20 Calcium (a/CMC/Centrex) 9.8 mg/dL 8.7-10.2 CBC Electronic ([facility]) 12/06/2004 WBC 8.3 CUMM 4.8-10.8 RBC 4.80 CUMM 4.2-5.4 Hemoglobin (a/CMC/CTX) 15.2 g/dL 12.0-16.0 Hematocrit (a/CMC/CTX) 45 % 35-47 Mean Corpuscular Vol 94 UM3 79-97 Mean Corpuscular Hemaglobin 32 pg High 27-31 Mean Corpuscular Hemo Concen 34 g/dL 32-36 RDW 12 10.5-15 Platelets 267 CUMM 150-450 Mean Platelet Volume 8.5 7.4-10.4 Granulocytes 59.8 % 38-83 Lymphocytes 30.4 % 20-45 Monocytes 6.9 % 1-9 Eosinophil 2.5 0-6 Basophil% 0.4 0-2 Abs Lymphs 2.5 1.0-4.8 Abs Mononuclear 0.6 0-0.8 Abs Grans 5.0 1.5-7.7 Abs Eosinophils 0.2 0-0.6 Abs Basophils 0 0-0.2 Laboratory test finding 08/23/2004 Hemoglobin A1c (F/C/CTX) 5.1 % 4.1- 5.7 Comp Metabolic (a) Female 08/23/2004 Glucose, Serum 99 mg/dL 70-118 (a/CMC/CTX) BUN ([facility]) 12 mg/dL 6-26 Creatinine, Serum 0.7 mg/dL 0.6-1.4 BUN/Creatinin Ratio 16.2 8.0-36 Sodium 141 134-149 Potassium 4.3 3.6-5.5 Chloride 100 mEq/L 94-112 Co2 32 21-32 Calcium (a/CMC/Centrex) 10.0 mg/dL 8.6-10.2 Total Protein 7.9 g/dL 6.3-8.1 Albumin ([facility]/Centrex) 4.7 3.8-5.5 Globulin 3.1 2.0-4.8 A/G Ratio (A/G Ratio) 1.5 0.6-2.2 Alkaline Phosphatase (F/C/CTX) 57 U/L 30-110 Alt (SGPT) 18 7-35 Ast (Sgot) (a/CMC/Centrex) 20 U/mL 5-34 Bilirubin, Total 0.7 mg/dL 0.2-1.3 Laboratory test finding 08/23/2004 TSH (a/[facility]) 1.56 uIU/ml 0.5- 6.0 T4 Free 1.12 1 Acute inflammation: >10.00 2 SEE RESULT BELOW Name: LINDA ELLINGTON : [address]: Fredy Rajput MD Acct: [id number] Unit: [id number] AGE: 62 Location: ICU [id number] Re12/03/17 Dis: 12/06/17 SEX: F Status: DIS IN SPEC: [id number] ILSA: 12/02/[address]: Emmanuel Mejia MD REQ: [id number] RECD: 12/02/17 STATUS: ALEXI SENA DR: Miguel Parmar MD _ SOURCE: [facility] ORDERED: Blood Cult Procedure Result Reported Site Aerobic Culture Bottle Final 12/07/172138 ML No Growth Day 5 Anaerobic Culture Bottle Final 12/07/172138 ML No Growth Day 5 * ML - MAIN LAB ([facility]1) . END OF REPORT * ML=Testing performed at Main Lab DEPARTMENT OF PATHOLOGY, [address] [place] [address] Mj Cisneros M.D. Director [facility] # [id number] 3 Because ethnic data is not always readily available, this report includes an eGFR for both -Americans and non- Americans. The National Kidney Disease Education Program (NKDEP) does not endorse the use of the MDRD equation for patients that are not between the ages of 18 and 70, are , have extremes of body size, muscle mass, or nutritional status, or are non- or non-. According to the National Kidney Foundation, irrespective of diagnosis, the stage of the disease is based on the level of kidney function: Stage Description GFR(mL/min/1.73 m(2)) 1 Kidney damage with normal or decreased GFR 90 2 Kidney damage with mild decrease in GFR 60-89 3 Moderate decrease in GFR 30-59 4 Severe decrease in GFR 15-29 5 Kidney failure <15 (or dialysis) 4 SEE RESULT BELOW Name: LINDA ELLINGTON : [address]: Fredy Rajput MD Acct: [id number] Unit: [id number] AGE: 62 Location: [place] [address] Re12/03/17 SEX: F Status: ADM IN SPEC: [id number] ILSA: 12/02/17 [facility] DR: Emmanuel Mejia MD REQ: [id number] RECD: 12/02/17 STATUS: RES [facility] DR: Miguel Parmar MD _ SOURCE: URINE [facility]: ORDERED: Urine Culture Procedure Result Reported Site Urine Culture Preliminary 12/05/17748 ML Organism 1 KLEBSIELLA PNEUMONIAE Gentry Count >100,000 (Many) CFU/ML * ML - MAIN LAB ([facility]) . END OF REPORT * ML=Testing performed at Main Lab DEPARTMENT OF PATHOLOGY, [address] [place] [address] Mj Cisneros M.D. Director [facility] # [id number] 5 Snuff Box Finisher: [id number] [facility] Severe Sepsis and Septic Shock Management Bundle Measure requires all lactic acids initially measuring >2.0 mmol/L be repeated. 7 Reference ranges based on room air. 8 SEE RESULT BELOW Name: LINDA ELLINGTON : [address]: Emmanuel Mejia MD Acct: [id number] Unit: [id number] AGE: 62 Location: ED Re12/02/17 SEX: F Status: REG ER SPEC: [id number] ILSA: 12/02/[address]: Emmanuel Mejia MD REQ: [id number] RECD: 12/02/17 STATUS: ALEXI SENA DR: Miguel Parmar MD _ SOURCE: [facility]: ORDERED: Flu A B Request Procedure Result Reported Site Rapid Influenza A B Request Final 12/02/17- 2205 ML Specimen received for Influenza A/B Molecular testing * ML - MAIN LAB ([facility]) . END OF REPORT * ML=Testing performed at Main Lab DEPARTMENT OF PATHOLOGY, [address] [place] [address] Mj Cisneros M.D. Director [facility] # [id number] 9 SEE RESULT BELOW Name: LINDA ELLINGTON : [address]: Fredy Rajput MD Acct: [id number] Unit: [id number] AGE: 62 Location: [place] [address] Re09/26/17 SEX: F Status: ADM IN SPEC: [id number] ILSA: 09/26/17-1252 [facility] DR: Helena Duncan MD REQ: [id number] RECD: 09/26/173297 STATUS: RES OTHR DR: Miguel Parmar MD _ SOURCE: URINE SPDESC: ORDERED: Urine Culture Procedure Result Reported Site Urine Culture Preliminary 09/27/17- 1602 ML Organism 1 ESCHERICHIA COLI Gentry Count >100,000 (Many) CFU/ML * ML - MAIN LAB ([facility]) . END OF REPORT * ML=Testing performed at Main Lab DEPARTMENT OF PATHOLOGY, [address] [place] [address] Mj Cisneros M.D. Director [facility] # [id number] 10 RESULTS VERIFIED BY REPEAT ANALYSIS 11 RESULTS VERIFIED BY REPEAT ANALYSIS 12 RESULTS VERIFIED BY REPEAT ANALYSIS 13 14 Positive: 5 of the following Borrelia-specific bands: 18,23,28,30,39,41,45,58, 66, and 93. Negative: No bands or banding patterns which do not meet positive criteria. 15 Note: An equivocal or positive EIA result followed by a negative Western Blot result is considered NEGATIVE. An equivocal or positive EIA result followed by a positive Western Blot is considered POSITIVE by the CDC. Positive: 2 of the following bands: 23,39 or 41 Negative: No bands or banding patterns which do not meet positive criteria. Criteria for positivity are those recommended by CDC/ASTPHLD. p23=Osp C, w74=ccaqxalrb Note: Sera from individuals with the following may cross react in the [place] Western Blot assays: other spirochetal diseases (periodontal disease, leptospirosis, relapsing fever, yaws, and pinta); connective autoimmune (Rheumatoid Arthritis and Systemic Lupus Erythematosus and also individuals with Antinuclear Antibody); other infections (Letcher Spotted Fever; Lary-Phelps Virus, and Cytomegalovirus). 16 NON-FASTING 17 Because ethnic data is not always readily available, this report includes an eGFR for both -Americans and non- Americans. The National Kidney Disease Education Program (NKDEP) does not endorse the use of the MDRD equation for patients that are not between the ages of 18 and 70, are , have extremes of body size, muscle mass, or nutritional status, or are non- or non-. According to the National Kidney Foundation, irrespective of diagnosis, the stage of the disease is based on the level of kidney function: Stage Description GFR(mL/min/1.73 m(2)) 1 Kidney damage with normal or decreased GFR 90 2 Kidney damage with mild decrease in GFR 60-89 3 Moderate decrease in GFR 30-59 4 Severe decrease in GFR 15-29 5 Kidney failure <15 (or dialysis) 18 Reference Range and Interpretation: TnI (ng/mL) Interpretation Less Than 0.03 ng/mL Not supportive of diagnosis of [place] 0.03 - 0.50 ng/mL Indeterminate: suggest serial studies if clinically indicated. Greater than 0.5 ng/mL Consistent with diagnosis of [place] 19 SEE RESULT BELOW Name: LINDA ELLINGTON : [address]: Helena Duncan MD Acct: [id number] Unit: [id number] AGE: 60 Location: ED Re05/13/15 SEX: F Status: DEP ER SPEC: [id number] ILSA: 05/13/15-[address]: Helena Duncan MD REQ: [id number] RECD: 05/13/15 STATUS: ALEXI SENA DR: Miguel Parmar MD _ SOURCE: BLOOD,VENO SPDESC: ORDERED: Blood Cult Procedure Result Verified Site Aerobic Culture Bottle Final 05/18/15- 1245 ML No Growth Day 5 Anaerobic Culture Bottle Final 05/18/15- 1245 ML No Growth Day 5 * ML - MAIN LAB ([facility]) . END OF REPORT * ML=Testing performed at Main Lab DEPARTMENT OF PATHOLOGY, [address] [place] [address] Mj Cisneros M.D. Director [facility] # [id number] 20 SEE RESULT BELOW Name: LINDA ELLINGTON : [address]: Helena Duncan MD Acct: [id number] Unit: [id number] AGE: 60 Location: ED Re05/13/15 SEX: F Status: DEP ER SPEC: [id number] ILSA: 05/13/15-1231 [facility] DR: Helena Duncan MD REQ: [id number] RECD: 05/13/15782 STATUS: COMP NATHEN DR: Miguel Parmar MD _ SOURCE: URINE SPDESC: ORDERED: Urine Culture Procedure Result Verified Site Urine Culture Final 05/15/15- 1039 ML Organism 1 NORMAL DEYA Gentry Count 25-50,000 (Moderate) CFU/ML * ML - MAIN LAB ([facility]) . END OF REPORT * ML=Testing performed at Main Lab DEPARTMENT OF PATHOLOGY, [address] [place] [address] Mj Cisneros M.D. Director [facility] # [id number] 21 Reference Range and Interpretation: TnI (ng/mL) Interpretation Less Than 0.03 ng/mL Not supportive of diagnosis of [place] 0.03 - 0.50 ng/mL Indeterminate: suggest serial studies if clinically indicated. Greater than 0.5 ng/mL Consistent with diagnosis of [place] 22 Presumptive Positive 23 The urine specimen was tested at the listed cutoffs: Drug class test level (ng/mL) Amphetamines 500 Barbituates 200 Benzodiazepine metabolites 200 Cocaine metabolites 150 Cannabinoids 50 Opiates 300 Pcp 25 This is a screening procedure. Positive results are not confirmed. Specimen was received without chain of custody. Results should be used for medical purposes only. 24 Because ethnic data is not always readily available, this report includes an eGFR for both -Americans and non- Americans. The National Kidney Disease Education Program (NKDEP) does not endorse the use of the MDRD equation for patients that are not between the ages of 18 and 70, are , have extremes of body size, muscle mass, or nutritional status, or are non- or non-. According to the National Kidney Foundation, irrespective of diagnosis, the stage of the disease is based on the level of kidney function: Stage Description GFR(mL/min/1.73 m(2)) 1 Kidney damage with normal or decreased GFR 90 2 Kidney damage with mild decrease in GFR 60-89 3 Moderate decrease in GFR 30-59 4 Severe decrease in GFR 15-29 5 Kidney failure <15 (or dialysis) 25 RUN DATE: 01/10/15 [facility] LAB LIVE PAGE 1 RUN TIME: [address] [place] [address] Specimen Inquiry Name: LINDA ELLINGTON Angela : [address]: Helio Miller MD Acct: [id number] Unit: [id number] AGE: 59 Location: ED Re01/10/15 SEX: F Status: DEP ER SPEC: [id number] ILSA: 01/10/15-[address]: Helio Miller MD REQ: [id number] RECD: 01/10/15-1230 STATUS: ALEXI SENA DR: Miguel Pan DO _ SOURCE: STOOL SPDESC: ORDERED: Hemoccult Procedure Result Verified Site Stool Occult Blood Final 01/10/15- 1448 L Stool Occult Blood Positive END OF REPORT * ML=Testing performed at Main Lab DEPARTMENT OF PATHOLOGY, [address] [place] [address] Mj Cisneros M.D. Director [facility] # [id number] 26 Reference Range and Interpretation: TnI (ng/mL) Interpretation Less Than 0.03 ng/mL Not supportive of diagnosis of [place] 0.03 - 0.50 ng/mL Indeterminate: suggest serial studies if clinically indicated. Greater than 0.5 ng/mL Consistent with diagnosis of [place] 27 Acute inflammation: >10.00 28 Because ethnic data is not always readily available, this report includes an eGFR for both -Americans and non- Americans. The National Kidney Disease Education Program (NKDEP) does not endorse the use of the MDRD equation for patients that are not between the ages of 18 and 70, are , have extremes of body size, muscle mass, or nutritional status, or are non- or non-. According to the National Kidney Foundation, irrespective of diagnosis, the stage of the disease is based on the level of kidney function: Stage Description GFR(mL/min/1.73 m(2)) 1 Kidney damage with normal or decreased GFR 90 2 Kidney damage with mild decrease in GFR 60-89 3 Moderate decrease in GFR 30-59 4 Severe decrease in GFR 15-29 5 Kidney failure <15 (or dialysis) 29 Verbal to [id number] by [id number] at 1010 on 01/10/15. Results read back accurately. 30 RUN DATE: 01/15/15 [facility] LAB LIVE PAGE 1 RUN TIME: [address] [place] [address] Specimen Inquiry Name: CHANDANALINDA Angela : [address]: Helio Miller MD Acct: [id number] Unit: [id number] AGE: 59 Location: ED Re01/10/15 SEX: F Status: DEP ER SPEC: [id number] ILSA: 01/10/15 [facility] DR: Helio Miller MD REQ: [id number] RECD: 01/10/15 STATUS: ALEXI SENA DR: Miguel Parmar MD _ SOURCE: BLOOD,VENO SPDESC: ORDERED: Blood Cult Procedure Result Verified Site Aerobic Culture Bottle Final 01/15/15- 1030 ML No Growth Day 5 Anaerobic Culture Bottle Final 01/15/15- 1030 ML No Growth Day 5 * ML - MAIN LAB ([facility]) . Mj Park M.D. END OF REPORT * ML=Testing performed at Main Lab DEPARTMENT OF PATHOLOGY, [address] [place] [address] Mj Cisneros M.D. Director [facility] # [id number] RESULTS VERIFIED BY REPEAT ANALYSIS 32 Because ethnic data is not always readily available, this report includes an eGFR for both -Americans and non- Americans. The National Kidney Disease Education Program (NKDEP) does not endorse the use of the MDRD equation for patients that are not between the ages of 18 and 70, are , have extremes of body size, muscle mass, or nutritional status, or are non- or non-. According to the National Kidney Foundation, irrespective of diagnosis, the stage of the disease is based on the level of kidney function: Stage Description GFR(mL/min/1.73 m(2)) 1 Kidney damage with normal or decreased GFR 90 2 Kidney damage with mild decrease in GFR 60-89 3 Moderate decrease in GFR 30-59 4 Severe decrease in GFR 15-29 5 Kidney failure <15 (or dialysis) 33 1 sst 34 result emmett'd 35 result emmett'd 36 Recommended INR for Patients on Oral Anticoagulants Prophylaxis 2.0 - 3.0 Treatment of thrombosis 2.0 - 3.0 Prevention of embolism 2.0 - 3.0 Prevention of embolism from prosthetic heart valves 2.5 - 3.5 37 DIAGNOSIS,TREATMENT,AND THERAPY MUST BE BASED ON THE INR VALUE ALONE. 38 Anion gap measurement may be of limited value in the presence of any alkalosis, especially in a combined acid base disorder. . 39 Note change in reference range as of 06/18/08. The change was based on recommendations from the [place] [employer]. 40 Please note change in reference range effective 08 . 41 A metabolite of Naproxen, O-desmethylnaproxen, has been shown to interfere with the Jendrassik-Hopeland method for measuring total bilirubin. Samples from patients who have taken Naproxen have shown spurious elevation in total bilirubin levels. 42 Because ethnic data is not always readily available, this report includes an eGFR for both -Americans and non- Americans. The National Kidney Disease Education Program (NKDEP) does not endorse the use of the MDRD equation for patients that are not between the ages of 18 and 70, are , have extremes of body size, muscle mass, or nutritional status, or are non- or non-. According to the National Kidney Foundation, irrespective of diagnosis, the stage of the disease is based on the level of kidney function: Stage Description GFR(mL/min/1.73 m(2)) 1 Kidney damage with normal or decreased GFR 90 2 Kidney damage with mild decrease in GFR 60-89 3 Moderate decrease in GFR 30-59 4 Severe decrease in GFR 15-29 5 Kidney failure <15 (or dialysis) 43 New Reference Range and Interpretation effective 08/01/2002 TnI (ng/ml) INTERPRETATION Less Than 0.06 ng/mL NOT SUPPORTIVE OF DIAGNOSIS OF [place] 0.06 - 0.50 ng/ml INDETERMINATE: SUGGEST SERIAL STUDIES IF CLINICALLY INDICATED. Greater than 0.5 ng/mL CONSISTENT WITH DIAGNOSIS OF [place] . 44 . A negative result does not preclude the presence of a C.trachomatis or N.gonorrhoeae infection because results are dependent on adequate specimen collection, absence of inhibitors, and sufficient rRNA to be detected. Test results may be affected by improper specimen collection, improper specimen storage, technical error, or specimen mixup. . 45 . A negative result does not preclude the presence of a C.trachomatis or N.gonorrhoeae infection because results are dependent on adequate specimen collection, absence of inhibitors, and sufficient rRNA to be detected. Test results may be affected by improper specimen collection, improper specimen storage, technical error, or specimen mixup. . 46 N^ABSENT^WPTVAG M^MANY (GREATER THAN 5/HPF)^WPWBC N^ABSENT^WPYEA 47 Anion gap measurement may be of limited value in the presence of any alkalosis, especially in a combined acid base disorder. . 48 Note change in reference range as of 06/18/08. The change was based on recommendations from the [place] [employer]. 49 Please note change in reference range effective 08 . 50 A metabolite of Naproxen, O-desmethylnaproxen, has been shown to interfere with the Jendrassik-Luciana method for measuring total bilirubin. Samples from patients who have taken Naproxen have shown spurious elevation in total bilirubin levels. 51 Because ethnic data is not always readily available, this report includes an eGFR for both -Americans and non- Americans. The National Kidney Disease Education Program (NKDEP) does not endorse the use of the MDRD equation for patients that are not between the ages of 18 and 70, are , have extremes of body size, muscle mass, or nutritional status, or are non- or non-. According to the National Kidney Foundation, irrespective of diagnosis, the stage of the disease is based on the level of kidney function: Stage Description GFR(mL/min/1.73 m(2)) 1 Kidney damage with normal or decreased GFR 90 2 Kidney damage with mild decrease in GFR 60-89 3 Moderate decrease in GFR 30-59 4 Severe decrease in GFR 15-29 5 Kidney failure <15 (or dialysis) 52 Anion gap measurement may be of limited value in the presence of any alkalosis, especially in a combined acid base disorder. . 53 Note change in reference range as of 06/18/08. The change was based on recommendations from the [place] [employer]. 54 Please note change in reference range effective 08 . 55 A metabolite of Naproxen, O-desmethylnaproxen, has been shown to interfere with the Jendrassik-Hopeland method for measuring total bilirubin. Samples from patients who have taken Naproxen have shown spurious elevation in total bilirubin levels. 56 MARIO VALUE=2.01 ( OF 10/04/07 Recommended INR for Patients on Oral Anticoagulants Prophylaxis 2.0 - 3.0 Treatment of thrombosis 2.0 - 3.0 Prevention of embolism 2.0 - 3.0 Prevention of embolism from prosthetic heart valves 2.5 - 3.5 57 PLEASE NOTE NEW REFERENCE RANGE EFFECTIVE 08. 58 FINAL: NO GROWTH DAY 2 (<1,000 CFU/mL) 59 The director of revenue and regulatory agencies both recommend that a throat culture for beta strep be performed if a Rapid Group A Strep assay yields a negative result. Therefore a culture will be automatically performed on all negative samples. N^NEGATIVE FOR GROUP A STREP BY ENZYME IMMUNOASSAY^STREPA 60 NEGATIVE FOR GROUP A BETA STREPTOCOCCUS 61 Anion gap measurement may be of limited value in the presence of any alkalosis, especially in a combined acid base disorder. . 62 MARIO VALUE=2.00 ( OF 08/14/06) Recommended INR for Patients on Oral Anticoagulants Prophylaxis 2.0 - 3.0 Treatment of thrombosis 2.0 - 3.0 Prevention of embolism 2.0 - 3.0 Prevention of embolism from prosthetic heart valves 2.5 - 3.5 63 PLEASE NOTE NEW REFERENCE RANGE EFFECTIVE 05 64 RECOMMENDED INR FOR PATIENTS ON ORAL ANTICOAGULANTS PROPHYLAXIS: 2.0-3.0 TREATMENT OF THROMBOSIS 2.0-3.0 PREVENTION OF EMBOLISM 2.0-3.0 PREVENTION OF EMBOLISM FROM PROSTHETIC HEART VALVES 2.5-3.5 Procedures Date CPT Code Description Status 06/19/2018 Mammogram Completed 09/27/2016 Colonoscopy Completed 11/05/2014 66931 Finger Or Heel Stick Completed 05/05/2014 20604 Pulse Oximetry Completed 04/14/2014 54649 Finger Or Heel Stick Completed 10/17/2013 66539 Finger Or Heel Stick Completed 09/12/2013 00488 Finger Or Heel Stick Completed 08/26/2013 95885 Rayne-Noninvasive physiologic studies of upper or lower Completed extremity 01/19/2012 26229 Finger Or Heel Stick Completed 07/27/2011 85644 Finger Or Heel Stick Completed 09/26/2010 71340 Finger Or Heel Stick Completed Encounters Type Date Location Provider CPT E/M Dx Office Visit 06/28/2018 2:40p Main Office Miguel Parmar M.D. 74851 I10 J44.9 I70.91 M54.5 E03.8 F41.1 I73.9 E78.4 I25.10 M54.2 Z23 Office Visit 10/02/2017 10:00a Main Office Miguel Parmar M.D. 45747 I10 J44.9 I70.91 M54.5 E03.8 F41.1 I73.9 J01.80 E78.4 R42 Office Visit 08/24/2017 9:00a Main Office Miguel Parmar M.D. 20738 Z23 I10 J44.9 I70.91 M54.5 E03.8 M15.0 Office Visit 04/24/2017 7:00p Main Office Miguel Parmar M.D. 63980 J44.9 I10 I70.91 M54.5 F41.1 E03.8 Office Visit 01/19/2017 9:00a Main Office Miguel Parmar M.D. 28925 I10 I70.91 I73.9 M54.5 E78.4 F41.1 J44.9 N39.3 Office Visit 10/19/2016 3:00p [facility] Miguel Parmar M.D. 68227 M54.5 I10 Office Visit 07/24/2016 10:10a Main Office Miguel Parmar M.D. 47009 M25.562 Office Visit 06/30/2016 9:40a Main Office Miguel Parmar M.D. 69656 M25.562 Office Visit 06/12/2016 2:20p Main Office Miguel Parmar M.D. 75817 M25.562 Office Visit 05/19/2016 9:20a Main Office Miguel Parmar M.D. 82688 M75.52 I70.91 R49.0 I73.9 I10 Office Visit 04/14/2016 9:20a Main Office Mgiuel Parmar M.D. 33814 I10 I70.91 I73.9 E78.4 F41.1 M25.512 R49.0 Office Visit 10/13/2015 9:00a [facility] Pennie NATE Shrestha 47518 I10 I73.9 F41.9 I70.91 Z23 Office Visit 06/07/2015 1:00p Main Office Miguel Parmar M.D. 96377 786.2 465.9 496 Office Visit 05/17/2015 9:20a Main Office Miguel Parmar M.D. 65969 401.1 496 443.9 300.00 440.9 491.21 Office Visit 03/08/2015 4:20p Main Office Miguel Parmar M.D. 88655 599.0 443.9 496 401.1 272.4 311 300.00 780.79 440.9 Office Visit 10/05/2014 8:30a [facility] [place] [address] 496 401.1 443.9 272.4 719.45 V58.61 311 v04.81 Office Visit 06/08/2014 4:10p Main Office Miguel Parmar M.D. 66888 443.9 496 401.1 272.4 719.45 Office Visit 05/05/2014 6:30p Main Office Earnestine WoodsLuis-C 05084 496 443.9 Office Visit 10/17/2013 11:40a Main Office Miguel Parmar M.D. 56249 723.1 729.2 453.40 V58.61 Office Visit 09/12/2013 9:40a Main Office Miguel Parmar M.D. 50227 723.1 729.2 401.1 453.40 V58.61 v58.61 443.9 Office Visit 08/26/2013 2:00p Main Office Miguel Parmar M.D. 07693 443.9 Office Visit 08/15/2013 9:00a Main Office Miguel Parmar M.D. 20294 401.1 723.1 496 453.40 300.00 311 443.9 V58.61 Office Visit 05/27/2013 8:00a Main Office Miguel Parmar M.D. 66286 723.1 729.2 724.2 401.1 496 453.40 Office Visit 02/04/2013 8:40a Main Office Miguel Parmar M.D. 25071 401.1 496 300.00 311 723.1 453.40 Office Visit 11/21/2011 12:00p Main Office Miguel Parmar M.D. 23613 401.1 496 300.00 311 443.9 Office Visit 05/15/2011 8:00a Main Office Miguel Parmar M.D. 49557 789.07 553.1 401.1 496 V58.61 443.9 Office Visit 07/29/2010 10:45a [place] 7[address] 401.1 496 477.9 Office Visit 07/08/2010 11:30a [place] 53804 477.9 786.2 Office Visit 07/01/2010 9:20a Main Office Miguel Parmar M.D. 15043 783.21 401.1 300.00 305.1 786.2 789.00 Office Visit 03/11/2010 3:10p Main Office Miguel Parmar M.D. 40863 401.1 300.00 305.1 300.01 Office Visit 03/09/2010 4:30p Main Office Ronak Alba 32465 300.01 401.9 Office Visit 09/18/2009 9:00a [place] 85141 562.11 300.00 401.1 Office Visit 09/07/2009 8:20p Main Office Miguel Parmar M.D. 43294 562.11 401.1 443.9 Office Visit 02/02/2009 8:20a Main Office Miguel Parmar M.D. 11403 443.9 305.1 401.1 V58.61 723.1 Office Visit 11/14/2006 3:00p Main Office Miguel Parmar M.D. 19156 443.9 300.00 305.1 Office Visit 02/22/2005 1:50p Main Office Miguel Parmar M.D. 01847 300.00 401.9 Office Visit 02/06/2005 8:20p Main Office Miguel Parmar M.D. 70965 443.9 272.4 401.1 V72.84 Office Visit 01/27/2005 9:20a Main Office Miguel Parmar M.D. 51967 429.2 401.1 272.4 Office Visit 01/13/2005 8:10a Main Office Miguel Parmar M.D. 01797 496 401.1 569.3 443.9 Office Visit 12/12/2004 1:20p Main Office Miguel Parmar M.D. 38020 401.1 723.1 443.9 Office Visit 08/22/2004 1:30p [place] [address] 782.0 729.5 V18.0 V77.1 Plan of Care Future Appointment(s):11/04/2018 8:00 am - Miguel Parmar M.D. at [facility]4709/03/2018 - Helena Singh, Luis-[phone] Pain in right legNew Medication:Methylprednisolone 4 mgFollow up:Followup:. (Follow up)AllComments:~B _~U_Medication Management~b_~u_ Patient Understands medications she's taking? Yes No Are there Barriers to Adherence? Yes No Has the patient been asked about herbal supplements and therapies, and OTC meds? Yes No ~B_~U_Care Plan~b_~u_1. Patient has been queried about patient's goals/ preferences and functional/lifestyle goals at relevant visits. If relevant, describe: na2. Treatment goals as explained to the patient: above3. Are there barriers to meeting treatment goals? Yes No If Yes, please describe:4. Self-Management goals as described to the patient:Yes No conserv rx: rest , local measures will try a dose pack f/u if no better or sx worsen
--- NOTE | 2018-09-28 19:04 | ED ---
Altered Mental Status - HPI Summary HPI Summary: The pt is a 63 y/o female brought in by ambulance c/o AMS. As per EMS,her granddaughter had difficulties reaching the pt via a call. On arrival, she found the patient seated on the floor saying that she did so because it is comfortable and her cat was there. She had been packing boxes because she will be relocating from [place] to [place] [place]. EMS report bruises on the back, and confusion.She does not remember how she got the bruises. The pt denies body aches, abd pain, and dyspnea. Her daughter reports that the patient complained of abd pain earlier in the day. The pt uses Oxygen at home. Her PCP is Dr. Ghulam MD with whom she has an upcoming appointment. Home Medications Medication Instructions Recorded Confirmed Type Cyclobenzaprine TAB* [Flexeril 10 10 mg PO TID PRN 09/16/14 09/03/18 History MG TAB*] Clopidogrel TAB* [Plavix TAB*] 75 mg PO DAILY 02/15/15 09/03/18 History Lisinopril TAB* [Prinivil TAB 10 10 mg PO DAILY 02/15/15 09/03/18 History MG*] Montelukast Sodium TAB* [Singulair 10 mg PO DAILY 02/15/15 09/03/18 History 10 MG TAB*] Sertraline* [Zoloft*] 200 mg PO DAILY 02/15/15 09/03/18 History oxyCODONE/Acetamin 5/325 MG* 1 tab PO QID 02/15/15 09/03/18 History [Percocet 5/325 TAB*] ALPRAZolam TAB* [Xanax TAB*] 0.25 mg PO Q6H PRN 04/27/15 09/03/18 History Levothyroxine TAB* [Synthroid TAB*] 75 mcg PO DAILY 04/19/17 09/03/18 History Aspirin EC TAB* [Ecotrin EC Low 81 mg PO DAILY #30 tab.ec 12/06/17 09/03/18 Rx Dose 81 MG*] Metoprolol Succinate 25 mg PO DAILY #30 tab.er.24h 12/06/17 09/03/18 Rx Nitroglycerin TAB 0.4 MG* 0.4 mg SL Q5M PRN #10 tab 12/06/17 09/03/18 Rx Albuterol inh POWDER (NF) [Proair 1 puff INH Q4H PRN 01/14/18 09/03/18 History Respiclick] Atorvastatin* [Lipitor*] 40 mg PO QPM 01/14/18 09/03/18 History Budesonide/Formote 160/4.5(NF) 2 puff INH BID 01/14/18 09/03/18 History [Symbicort 160/4.5 (NF)] Nebulizer [Truneb Nebulizer] 1 each MC Q4H 01/14/18 09/03/18 History Mirabegron (NF) [Myrbetriq (NF)] 50 mg PO BEDTIME 05/23/18 09/03/18 History Pregabalin CAP(*) [Lyrica CAP(*)] 50 mg PO TID 05/23/18 09/03/18 History - History Of Current Complaint Chief Complaint: EDAltMentalStatus Stated Complaint: AMS Time Seen by Provider: 09/28/18 18:33 Hx Obtained From: Patient, EMS Onset/Duration: Unknown Character: Confusion Aggravating Factor(s): Nothing Alleviating Factor(s): Nothing Associated Signs And Symptoms: Positive: Negative - body aches, abd pain, and dyspnea - Allergies/Home Medications Allergies/Adverse Reactions: Allergies Allergy/AdvReac Type Severity Reaction Status Date / Time gabapentin AdvReac Severe Memory Verified 09/03/18 09:22 Issues PMH/Surg Hx/FS Hx/Imm Hx Previously Healthy: No Endocrine/Hematology History: Reports: Hx Anticoagulant Therapy, Hx Thyroid Disease Denies: Hx Diabetes Cardiovascular History: Reports: Hx Angioplasty, Hx Coronary Artery Disease, Hx Deep Vein Thrombosis, Hx Hypercholesterolemia, Hx Hypertension, Hx Peripheral Vascular Disease, Other Cardiovascular Problems/Disorders - VASCULAR DISEASE ON HER LEGS AND ABD Denies: Hx Pacemaker/ICD Respiratory History: Reports: Hx Asthma - Lung sounds clear, Hx Chronic Obstructive Pulmonary Disease (COPD), Hx Seasonal Allergies, Other Respiratory Problems/Disorders - COLLAPSED LUNG 30 YRS AGO GI History: Reports: Other GI Disorders - bowel necrosis and surgery Denies: Hx Crohn's Disease, Hx Gall Bladder Disease, Hx Gastrointestinal Bleed, Hx Jaundice, Hx Obstructive Bowel, Hx Pyloric Stenosis History: Reports: Other Problems/Disorders - recent UTI Musculoskeletal History: Reports: Hx Arthritis, Hx Orthopedic Injury, Other Musculoskeletal History - arthritis, degenerative disk in neck, R SHOULDER PAIN Sensory History: Reports: Hx Contacts or Glasses Denies: Hx Eye Injury, Hx Eye Prosthesis, Hx Glaucoma, Hx Legally Blind, Hx Macular Degeneration, Hx Vision Problem, Hx Deafness, Hx Hearing Aid - nikolski, Hx Hearing Problem Opthamlomology History: Reports: Hx Contacts or Glasses Denies: Hx Eye Injury, Hx Eye Prosthesis, Hx Glaucoma, Hx Legally Blind, Hx Macular Degeneration, Hx Vision Problem Neurological History: Reports: Other Neuro Impairments/Disorders - tingling down left arm from arthritis--not now Psychiatric History: Reports: Hx Anxiety, Hx Depression, Hx Panic Disorder - Cancer History Cancer Type, Location and Year: None reported Hx Chemotherapy: No Hx Radiation Therapy: No Hx Palliative Cancer Treatment: No - Surgical History Surgery Procedure, Year, and Place: LT LEG SURGERY 2006, RT SHOULDER -, RT SHOULDER - AT [facility] femoral angioplasty, 10/2013, [place], recent bowel resection December 2013, R LEG--[place] - Immunization History Date of Tetanus Vaccine: Unkown Infectious Disease History: No Infectious Disease History: Reports: Hx Tuberculosis - 10 YEARS Denies: Hx Clostridium Difficile, Hx Hepatitis, Hx of Known/Suspected MRSA, Hx Shingles, Hx Known/Suspected VRE, Hx Known/Suspected VRSA, Traveled Outside the in Last 30 Days - Family History Known Family History: Negative: Hypertension, Diabetes - Social History Occupation: Disabled, Retired Lives: Alone Alcohol Use: None Hx Substance Use: Yes Substance Use Type: Reports: None Substance Use Comment - Amount & Last Used: have (+) for opiod and benzodiazepine. Hx Tobacco Use: Yes Smoking Status (MU): Former Smoker Type: Cigarettes Amount Used/How Often: 2 ppd Length of Time of Smoking/Using Tobacco: 40 Have You Smoked in the Last Year: No Review of Systems Constitutional: Negative - Body aches , Other - Positive: Confusion Respiratory: Negative - Dyspnea Negative: Abdominal Pain Positive: Rash - Abdomen , Bruising - Back All Other Systems Reviewed And Are Negative: Yes Physical Exam - Summary Physical Exam Summary: Appearance: The patient is well-nourished in no acute distress and in no acute pain. Skin: There is a bruise on the back of the L shoulder and L flank. There is an erythematous area on the abd that is mildly tender HEENT: The head is normocephalic and atraumatic. The pupils are equal and reactive. The conjunctivae are clear and without drainage. Nares are patent and without drainage. Mouth reveals moist mucous membranes and the throat is without erythema and exudate. The external ears are intact. The ear canals are patent and without drainage. The tympanic membranes are intact. Neck: The neck is supple with full range of motion and non-tender. There are no carotid bruits. There is no neck vein distension. Respiratory: Chest is non-tender. Lungs are clear to auscultation and breath sounds are symmetrical and equal. Cardiovascular: Heart is regular rate and rhythm. There is a systolic ejection murmur auscultated. There is no peripheral edema and pulses are symmetrical and equal. Abdomen: The abdomen is soft and non-tender. There are normal bowel sounds heard in all four quadrants and there is no organomegaly palpated. Musculoskeletal: There is no back tenderness noted. Extremities are non-tender with full range of motion. There is good capillary refill. There is no peripheral edema or calf tenderness elicited. Neurological: Patient is alert and oriented to person, place and time. The patient has symmetrical motor strength in all four extremities. Cranial nerves are grossly intact. Deep tendon reflexes are symmetrical and equal in all four extremities. Psychiatric: The patient has an appropriate affect and does not exhibit any anxiety or depression. GCS: 15 Triage Information Reviewed: Yes Vital Signs On Initial Exam: Initial Vitals Temp Pulse Resp BP Pulse Ox 99.3 F 93 24 112/59 95 09/28/18 18:31 09/28/18 18:31 09/28/18 18:31 09/28/18 18:31 09/28/18 18:31 Vital Signs Reviewed: Yes Diagnostics - Vital Signs Vital Signs Temp Pulse Resp BP Pulse Ox 09/28/18 18:31 99.3 F 93 24 112/59 95 - Laboratory Result Diagrams: 09/28/18 19:13 09/28/18 19:13 Lab Statement: Any lab studies that have been ordered have been reviewed, and results considered in the medical decision making process. - Radiology CXR Radiology Interpretation Completed By: ED Physician Summary of Radiographic Findings: Atelectasis versus infiltration in the L lung - CT Brain CT CT Interpretation Completed By: Radiologist Summary of CT Findings: IMPRESSION: No acute intracranial abnormality. The ED physician reviewed this radiology report. - EKG 19:59 Cardiac Rate: NL - 85 bpm EKG Rhythm: Sinus Rhythm ST Segment: Normal Ectopy: None EKG Comparison: No Significant Change Altered Mental Statu Course/Dx - Course Course Of Treatment: Ms. Jiménez presented to the emergency department denying any complaints. She was not answering her phone so her daughter went over to her house and found her on the floor. We have no good indication of how long she is on the floor or why, although she says it's because she wanted to be near the cat and she was tired. She is a poor historian and we are waiting for her daughter to arrive. She is very unsteady on her feet on arrival and needs help to ambulate. CT scan of her brain noncontrasted is negative. She has a mild leukocytosis. Her chest x-ray shows atelectasis versus infiltrate low on the left. We're still waiting for urinalysis. The hospice of been contacted admitting her at this time for weakness and altered mental status. - Diagnoses Provider Diagnoses: Weakness, Altered mental status Discharge - Sign-Out/Discharge Documenting (check all that apply): Patient Departure - Discharge Plan Condition: Stable Disposition: ADMITTED TO [facility] Referrals: Miguel Parmar MD [Primary Care Provider] - - Billing Disposition and Condition Condition: STABLE Disposition: Admitted to [facility] - Attestation Statements Document Initiated by Brandi: Yes Documenting Scribe: Roopa Mackenzie Provider For Whom Brandi is Documenting (Include Credential): Dr. Helio Miller MD Scribe Attestation: Roopa Slade , scribed for Dr. Helio Miller MD on 09/28/18 at 2117. Scribe Documentation Reviewed: Yes Provider Attestation: The documentation as recorded by the Roopa mcduffie accurately reflects the service I personally performed and the decisions made by me, Dr. Helio Miller MD Status of Scribe Document: Viewed
[2018-09-28 19:22] LABS: ABS Basophils 0 10^3/ul (0-0.2); ABS Eosinophils 0.1 10^3/ul (0-0.6); ABS Lymphocytes 0.9 10^3/ul (1.0-4.8); ABS Monocytes 1.1 10^3/ul (0-0.8); ABS Neutrophils 9.8 10^3/ul (1.5-7.7); ABS Nucleated RBC 0 10^3/ul; Eosinophil % 0.7 %; Hematocrit 37 % (35-47); Hemoglobin 12.3 g/dl (12.0-16.0); Lymphocyte % 7.6 %; Mean Corpuscular HGB Conc 33 g/dl (31-36); Mean Corpuscular Hemoglobin 30 pg (27-31); Mean Corpuscular Volume 91 fL (80-97); Mean Platelet Volume 8.5 fL (7.4-10.4); Nucleated Red Blood Cells % 0; Platelet Count 202 10^3/ul (150-450); Red Blood Count 4.09 10^6/ul (4.00-5.40); Red Cell Distribution Width 13 % (10.5-15); White Blood Count 11.9 10^3/ul (3.5-10.8)
[2018-09-28 19:28] LABS: INR 0.97 (0.77-1.02)
[2018-09-28 19:39] LABS: EGFR Non-African American 44.7 (>60)
[2018-09-28] MEDS ORDERED: Albuterol HFA INHALER* 8 gm MDI INH PRN (20:55)
[2018-09-28] MEDS ORDERED: ALPRAZolam TAB* 0.25 MG PO PRN (20:55)
[2018-09-28] MEDS ORDERED: Cyclobenzaprine TAB* 10 MG PO PRN (20:55)
[2018-09-28] MEDS ORDERED: Acetaminophen TAB* 325 MG PO PRN (21:10)
[2018-09-28] MEDS ORDERED: NS 0.9% 1000 ML* 1,000 ML IV ONE (21:18)
[2018-09-28] MEDS ORDERED: NS 0.9% 1000 ML* 2,000 ML IV ONE (21:22)
[2018-09-28] MEDS ORDERED: Levofloxacin 750 MG IVPREMIX(* 750 MG/150 ML BAG IVPB SCH (23:00)
[2018-09-28] MEDS ORDERED: guaiFENesin LIQ* 100 MG/5 ML UDC ONE (23:59)
[2018-09-29] MEDS ORDERED: guaiFENesin LIQ* 100 MG/5 ML UDC PO PRN
[2018-09-29] MEDS: NS 0.9% 1000 ML* 1,000 ML IV SCH ×2 (00:03→06:04)
[2018-09-29] MEDS: oxyCODONE/Acetamin 5/325 MG* TAB PO SCH ×5 (00:04→18:05)
[2018-09-29] MEDS: Pregabalin CAP(*) 50 MG PO SCH ×4 (00:05→18:06)
[2018-09-29] MEDS: Heparin VIAL(*) 5000 UNITS/ML VIAL (FIVE THOUSAND) SUBCUT SCH ×3 (00:10→18:05)
--- NOTE | 2018-09-29 00:13 | HP ---
CC: Dr. Parmar.* HOSPITAL MEDICINE HISTORY AND PHYSICAL: DATE OF ADMISSION: 09/28/18 PRIMARY CARE PHYSICIAN: Dr. Parmar. ATTENDING PHYSICIAN: Dr. Molly Capone * (dictation provided by Chanel Ortega NP ). CHIEF COMPLAINT: Weakness and altered mental status. HISTORY OF PRESENT ILLNESS: Ms. Jiménez is a 63-year-old female with a past medical history of coronary artery disease with stent placement in November 2017 , frequent admissions for urinary tract infections with symptoms of altered mental status, COPD, and chronic pain, who presents to the hospital today with concern for altered mental status and weakness. Ms. Escalante lives alone. She is frequently visited and called by her daughter. Her daughter states she spoke to her around 2 o'clock this afternoon and it seemed at that time that she was okay, though they did not speak very long. The patient herself states that she was feeling very tired and laid down on the floor, but then had difficulty getting up when she laid down. The patient has no clear recollection of what happened this afternoon. The patient's grandchildren came over to stay with her this afternoon, but they were unable to get into the apartment. They heard some noises from inside and ultimately EMS was called to go into the apartment to check on her welfare. The patient denies any other complaints, but daughter notes that she has a chronic cough that appears unchanged today. The daughter notes that the patient continues to seem somewhat confused, although better than when she first saw her. The patient herself denies any complaints other than some left-sided mid abdominal pain. She specifically denies dysuria or frequency and the daughter states that in the past when she has had severe urinary tract infections, she was never symptomatic at those times either. In the emergency room, Ms. Jiménez had labs that show low sodium of 132 and a creatinine of 1.21, which could suggest some level of dehydration. She has a total CK of 2691, which could suggest that she was lying on the floor for some time. Her WBC is only 11.9. She is afebrile. She is currently on 2 L nasal cannula, satting at 95%. Rest of her vitals were stable. She did have a CT brain, which showed no acute intracranial abnormality. She had a chest x-ray, which showed concern for possible left lower lobe infiltrate, although this is subtle and could represent atelectasis only. PAST MEDICAL HISTORY: 1. Cervicalgia with arthritis and chronic pain management in pain clinic. 2. History of coronary artery disease with stent placement in November 2017. 3. History of frequent urinary tract infections, last known with ESBL Klebsiella with multiple resistances, only sensitive to Levaquin and meropenem. 4. History of SMA artery stents. 5. Hypertension. 6. COPD. 7. Peripheral vascular disease. 8. Hypothyroidism. 9. Depression. MEDICATIONS: The patient is not able to confirm her medication list for me today, but the best report that we have is that she is on: 1. Albuterol 1 puff inhale q.4 hours p.r.n. 2. Alprazolam 0.25 mg p.o. q.6 hours p.r.n. 3. Lisinopril 10 mg p.o. daily. 4. Levothyroxine 75 mcg p.o. daily. 5. Cyclobenzaprine 10 mg p.o. t.i.d. p.r.n. 6. Clopidogrel 75 mg p.o. daily. 7. Symbicort 160-4.5 two puffs inhale b.i.d. 8. Atorvastatin 40 mg p.o. q.p.m. 9. Aspirin 81 mg p.o. daily. 10. Pregabalin 50 mg p.o. t.i.d. 11. Nitroglycerin 0.4 mg sublingually q.5 minutes p.r.n. 12. TruNeb nebulizer q.4 hours p.r.n. 13. Singulair 10 mg tab p.o. daily. 14. Myrbetriq 50 mg p.o. bedtime. 15. Metoprolol succinate 25 mg p.o. daily. 16. Oxycodone with acetaminophen 5/325 one tab p.o. 4 times a day. 17. Sertraline 200 mg p.o. daily. ALLERGIES: GABAPENTIN. FAMILY HISTORY: Unobtainable. SOCIAL HISTORY: No report of alcohol, tobacco, or current drug use. The patient lives alone. Her daughter is the healthcare proxy. REVIEW OF SYSTEMS: A 14-point review of systems is completed with Ms. Jiménez and that she is confused, she was not able to offer any positive review of systems that was not mentioned above. PHYSICAL EXAMINATION GENERAL: Ms. Jiménez is lying in the bed with her daughter at the bedside. She is in no acute distress. VITAL SIGNS: Temperature 99.3, pulse rate 93, respiratory rate 24, O2 saturation 95% on 2 L nasal cannula, blood pressure 112/59. HEENT: Extraocular movements are intact. LUNGS: Clear to auscultation bilaterally with no accessory muscle use and good aeration. HEART: S1, S2. No murmur, rub, or gallop and regular. ABDOMEN: Soft, nontender with bowel sounds positive x4. Pain with palpation to the left mid quadrant. EXTREMITIES: No cyanosis, no edema. SKIN: Intact. NEUROLOGIC: She is alert. She is oriented x3. She moves all extremities equally. There is no facial asymmetry or focal weakness. DIAGNOSTIC STUDIES/LAB DATA: WBC 11.9, hemoglobin 12.3, hematocrit 37, platelet count 202. INR is 0.97. Sodium 132, potassium 4.6, chloride 97, serum bicarbonate 30, BUN 19, creatinine 1.21, glucose 101, lactic acid 0.5. Total CK 2691. Tox screen is negative. CT brain is read as per above. EKG shows sinus rhythm with a heart rate of 85 and no evidence of ischemia when compared to previous EKG from November 2017. ASSESSMENT: Ms. Jiménez is a 63-year-old female with a past medical history of chronic pain, coronary artery disease with stent placement in November 2017, frequent urinary tract infections with multi-drug resistant bacteria, COPD, who presents to the hospital today with concern for altered mental status and weakness. Our plans are for observation in the hospital for the followin. Altered mental status: Based on the patient's previous history of 3 admissions to our hospital for altered mental status related to urinary tract infections, I am highly suspicious that this is the cause of her altered mental status today. I note that on 12/02/17, she had an ESBL Klebsiella pneumoniae urinary tract infection that was resistant to everything, but Levaquin and meropenem; therefore, plan to start Levaquin. The patient did tolerate that well last time. Urinalysis is pending and we will follow urine cultures closely. Other causes of altered mental status could be polypharmacy. I think that the patient has followed regularly with the pain clinic and has been doing well with them with no recent adjustments to the medications, she is only on oxycodone-acetaminophen 4 times a day plus Lyrica and cyclobenzaprine, I am planning to continue those for now as she is awake and alert and I have a low suspicion of this is the cause of her altered mental status, but this can be adjusted as necessary going forward. I will also note that in terms of possible urinary tract infection that I am planning to order a CT abdomen/ pelvis as the patient does have pain along the left side to rule out kidney stone or pyelonephritis. At this time, the patient is barely meeting sepsis criteria with a respiratory rate of 24 and a pulse rate of 93. Again, we are treating with antibiotics, IV fluids. Her lactic acid is normal. 2. History of coronary artery disease with stent placement. The patient will be continued on aspirin and Plavix as well as lisinopril and metoprolol. 3. History of chronic pain. Continue medications as per above. 4. History of hypertension. Continue metoprolol and lisinopril. 5. Chronic obstructive pulmonary disease. The patient does have a cough and no evidence of exacerbation with no wheezing on examination. Plan to continue home medications. 6. Hypothyroidism. Continue levothyroxine. 8. DVT prophylaxis with heparin subcu. 9. Code status is full code. TIME SPENT: Approximately 75 minutes were spent on the admission of this patient, more than half time was spent with the patient at the bedside reviewing the events leading up to this hospitalization, performing the physical examination, and reviewing the plan of care. CHANEL ORTEGA NP [id number]/[facility] #: [id number] FERMÍN
[2018-09-29] MEDS ORDERED: Levothyroxine TAB* 75 MCG TAB PO SCH (06:00)
[2018-09-29 07:15] LABS: ABS Basophils 0 10^3/ul (0-0.2); ABS Eosinophils 0.1 10^3/ul (0-0.6); ABS Lymphocytes 1.7 10^3/ul (1.0-4.8); ABS Monocytes 1.2 10^3/ul (0-0.8); ABS Neutrophils 6.1 10^3/ul (1.5-7.7); ABS Nucleated RBC 0 10^3/ul; Eosinophil % 1.6 %; Hematocrit 35 % (35-47); Hemoglobin 11.8 g/dl (12.0-16.0); Lymphocyte % 18.5 %; Mean Corpuscular HGB Conc 33 g/dl (31-36); Mean Corpuscular Hemoglobin 31 pg (27-31); Mean Corpuscular Volume 92 fL (80-97); Mean Platelet Volume 8.5 fL (7.4-10.4); Nucleated Red Blood Cells % 0.1; Platelet Count 192 10^3/ul (150-450); Red Blood Count 3.87 10^6/ul (4.00-5.40); Red Cell Distribution Width 13 % (10.5-15); White Blood Count 9.1 10^3/ul (3.5-10.8)
[2018-09-29 07:39] LABS: Urine Appearance Clear; Urine Blood Negative (Negative); Urine Color Straw; Urine Ketones Negative (Negative); Urine Protein Negative (Negative); Urine Red Blood Cell Trace(0-2/hpf) (Absent); Urine Specific Gravity 1.005 (1.010-1.030); Urine Urobilinogen Negative (Negative); Urine White Blood Cell 3+(>20/hpf) (Absent)
[2018-09-29] MEDS ORDERED: Metoprolol Succinate XL TAB* 25 MG PO SCH (09:00)
[2018-09-29] MEDS: Clopidogrel TAB* 75 MG PO SCH ×2 (09:49→09:54)
[2018-09-29] MEDS: Montelukast Sodium TAB* 10 MG PO SCH ×2 (09:49→09:54)
[2018-09-29] MEDS: Aspirin EC TAB* 81 MG TAB.EC PO SCH ×2 (09:49→09:54)
[2018-09-29] MEDS: Lisinopril TAB* 10 MG PO SCH ×2 (09:49→09:54)
[2018-09-29] MEDS: Sertraline* 100 MG TAB PO SCH ×2 (09:49→09:55)
--- NOTE | 2018-09-29 10:29 | PN ---
Subjective Date of Service: 09/29/18 Interval History: CT abd last night concerning for ventral hernia containing partial small bowel w / inflammatory changes. Started hurting yesterday and she attributes to having her underwear hiked up too high. UA obtained after levaquin. Surgery Dr Earl consulted this AM and plans to take to OR chronic hypoxic respiratory failure (2L) Dr. Sibley was her vascular surgeon at [facility]. reports 12cm of ischemic bowel removed about 4 years ago. Pt does not really remember whether she fell or not. Does remember having difficulty standing. CK up to 8017 from 2691 worse cough over last several months (attest seems cyclical to first of month, denies any change in routine at that time), nonproductive Objective Active Medications: Acetaminophen (Tylenol Tab*) 650 mg PO Q6H PRN PRN Reason: PAIN Albuterol (Ventolin Hfa Inhaler*) 1 puff INH Q4H PRN PRN Reason: WHEEZING Alprazolam (Xanax Tab*) 0.25 mg PO Q6H PRN PRN Reason: ANXIETY Last Admin: 09/29/18 00:04 Dose: 0.25 mg Aspirin (Aspirin Ec Tab*) 81 mg PO DAILY [facility] Last Admin: 09/29/18 09:54 Dose: Not Given Atorvastatin Calcium (Lipitor*) 40 mg PO QPM [facility] Clopidogrel Bisulfate (Plavix Tab*) 75 mg PO DAILY [facility] Last Admin: 09/29/18 09:54 Dose: Not Given Cyclobenzaprine HCl (Flexeril Tab*) 10 mg PO TID PRN PRN Reason: SPASMS Guaifenesin (Robitussin*) 5 ml PO Q4H PRN PRN Reason: COUGH Last Admin: 09/29/18 00:10 Dose: 5 ml Heparin Sodium (Porcine) (Heparin Vial(*)) 5,000 units SUBCUT Q8HR [facility] Last Admin: 09/29/18 06:06 Dose: 5,000 units Levofloxacin/Dextrose (Levaquin 750 Mg Ivpremix(*)) 750 mg in 150 mls @ 100 mls /hr IVPB 2100 [facility] Last Admin: 09/29/18 00:05 Dose: 100 mls/hr Sodium Chloride (Ns 0.9% 1000 Ml*) 1,000 mls @ 125 mls/hr IV PER RATE [facility] Last Admin: 09/29/18 06:04 Dose: 125 mls/hr Levothyroxine Sodium (Synthroid Tab*) 75 mcg PO 0600 [facility] Last Admin: 09/29/18 06:06 Dose: 75 mcg Lisinopril (Prinivil Tab*) 10 mg PO DAILY [facility] Last Admin: 09/29/18 09:54 Dose: Not Given Metoprolol Succinate (Toprol Xl Tab*) 25 mg PO DAILY [facility] Last Admin: 09/29/18 09:47 Dose: Not Given Montelukast Sodium (Singulair Tab*) 10 mg PO DAILY [facility] Last Admin: 09/29/18 09:54 Dose: Not Given Oxycodone/Acetaminophen (Percocet 5/325 Tab*) 1 tab PO QID [facility] Last Admin: 09/29/18 09:54 Dose: Not Given Pregabalin (Lyrica Cap(*)) 50 mg PO TID [facility] Last Admin: 09/29/18 09:55 Dose: Not Given Sertraline HCl (Zoloft*) 200 mg PO DAILY [facility] Last Admin: 09/29/18 09:55 Dose: Not Given Vital Signs - 8 hr 09/29/18 09/29/18 09/29/18 02:43 03:27 03:46 Temperature 98.5 F Pulse Rate 83 Respiratory 22 18 Rate Blood Pressure 98/57 115/62 (mmHg) O2 Sat by Pulse 96 Oximetry 09/29/18 07:24 Temperature 97.9 F Pulse Rate 76 Respiratory 19 Rate Blood Pressure 99/54 (mmHg) O2 Sat by Pulse 95 Oximetry Oxygen Devices in Use Now: Nasal Cannula Appearance: NAD Neck: NL Appearance and Movements; NL JVP, Trachea Midline Respiratory: - - distant lung sounds diffusely. no rhonchi Cardiovascular: - - [place] loudest LLSB, and midclavicular 5th intercoastal. regular rate and rhythm, no rubs or gallops. Abdominal: - - surgical scars near umbilicus, hernia inferiorly and left of umbilicus with overlying erythema 4x5cm and tenderness. other quadrants soft, nontender. no rebound. Extremities: No Edema Skin: - - erythema right inferior abdomen as above. ecchymosis right scapula Neurological: Alert and Oriented x 3, NL Sensation Nutrition: Taking PO's Result Diagrams: 09/29/18 06:49 09/29/18 06:49 Additional Lab and Data: Laboratory Results - last 24 hr 09/28/18 09/28/18 09/28/18 19:13 19:13 19:13 WBC 11.9 H RBC 4.09 Hgb 12.3 Hct 37 MCV 91 MCH 30 MCHC 33 RDW 13 Plt Count 202 MPV 8.5 Neut % (Auto) 81.9 Lymph % (Auto) 7.6 Hoke % (Auto) 9.6 Eos % (Auto) 0.7 Baso % (Auto) 0.2 Absolute Neuts (auto) 9.8 H Absolute Lymphs (auto) 0.9 L Absolute Monos (auto) 1.1 H Absolute Eos (auto) 0.1 Absolute Basos (auto) 0 Absolute Nucleated RBC 0 Nucleated RBC % 0 INR (Anticoag Therapy) 0.97 Sodium 132 L Potassium 4.6 Chloride 97 L Carbon Dioxide 30 Anion Gap 5 BUN 19 Creatinine 1.21 H Est GFR ( Amer) 54.0 Est GFR (Non-Af Amer) 44.7 BUN/Creatinine Ratio 15.7 Glucose 101 H Lactic Acid Calcium 9.3 Total Bilirubin 0.60 AST 54 H ALT 34 Alkaline Phosphatase 52 Total Creatine Kinase 2691 H Troponin I 0.01 Total Protein 6.8 Albumin 4.1 Globulin 2.7 Albumin/Globulin Ratio 1.5 Urine Color Urine Appearance Urine pH Ur Specific [place] Urine Protein Urine Ketones Urine Blood Urine Nitrate Urine Bilirubin Urine Urobilinogen Ur Leukocyte Esterase Urine WBC (Auto) Urine RBC (Auto) Ur Squamous Epith Cells Urine Bacteria Urine Glucose Salicylates < 2.50 Urine Opiates Screen Acetaminophen < 15 Ur Barbiturates Screen Ur Phencyclidine Scrn Ur Amphetamines Screen U Benzodiazepines Scrn Urine Cocaine Screen U Cannabinoids Screen Serum Alcohol < 10 09/28/18 09/29/18 09/29/18 19:13 06:15 06:15 WBC RBC Hgb Hct MCV MCH MCHC RDW Plt Count MPV Neut % (Auto) Lymph % (Auto) Hoke % (Auto) Eos % (Auto) Baso % (Auto) Absolute Neuts (auto) Absolute Lymphs (auto) Absolute Monos (auto) Absolute Eos (auto) Absolute Basos (auto) Absolute Nucleated RBC Nucleated RBC % INR (Anticoag Therapy) Sodium Potassium Chloride Carbon Dioxide Anion Gap BUN Creatinine Est GFR ( Amer) Est GFR (Non-Af Amer) BUN/Creatinine Ratio Glucose Lactic Acid 0.5 Calcium Total Bilirubin AST ALT Alkaline Phosphatase Total Creatine Kinase Troponin I Total Protein Albumin Globulin Albumin/Globulin Ratio Urine Color Straw Urine Appearance Clear Urine pH 6.0 Ur Specific [place] 1.005 L Urine Protein Negative Urine Ketones Negative Urine Blood Negative Urine Nitrate Negative Urine Bilirubin Negative Urine Urobilinogen Negative Ur Leukocyte Esterase 3+ A Urine WBC (Auto) 3+(>20/hpf) A Urine RBC (Auto) Trace(0-2/hpf) Ur Squamous Epith Cells Present A Urine Bacteria 1+ A Urine Glucose Negative Salicylates Urine Opiates Screen Presumptive positive A Acetaminophen Ur Barbiturates Screen None detected Ur Phencyclidine Scrn None detected Ur Amphetamines Screen None detected U Benzodiazepines Scrn Presumptive positive A Urine Cocaine Screen None detected U Cannabinoids Screen None detected Serum Alcohol 09/29/18 09/29/18 06:49 06:49 WBC 9.1 RBC 3.87 L Hgb 11.8 L Hct 35 MCV 92 MCH 31 MCHC 33 RDW 13 Plt Count 192 MPV 8.5 Neut % (Auto) 66.4 Lymph % (Auto) 18.5 Hoke % (Auto) 13.3 Eos % (Auto) 1.6 Baso % (Auto) 0.2 Absolute Neuts (auto) 6.1 Absolute Lymphs (auto) 1.7 Absolute Monos (auto) 1.2 H Absolute Eos (auto) 0.1 Absolute Basos (auto) 0 Absolute Nucleated RBC 0 Nucleated RBC % 0.1 INR (Anticoag Therapy) Sodium 139 Potassium 3.9 Chloride 104 Carbon Dioxide 28 Anion Gap 7 BUN 15 Creatinine 0.83 Est GFR ( Amer) 83.5 Est GFR (Non-Af Amer) 69.0 BUN/Creatinine Ratio 18.1 Glucose 98 Lactic Acid Calcium 8.8 Total Bilirubin AST ALT Alkaline Phosphatase Total Creatine Kinase 8017 H Troponin I Total Protein Albumin Globulin Albumin/Globulin Ratio Urine Color Urine Appearance Urine pH Ur Specific [place] Urine Protein Urine Ketones Urine Blood Urine Nitrate Urine Bilirubin Urine Urobilinogen Ur Leukocyte Esterase Urine WBC (Auto) Urine RBC (Auto) Ur Squamous Epith Cells Urine Bacteria Urine Glucose Salicylates Urine Opiates Screen Acetaminophen Ur Barbiturates Screen Ur Phencyclidine Scrn Ur Amphetamines Screen U Benzodiazepines Scrn Urine Cocaine Screen U Cannabinoids Screen Serum Alcohol Assess/Plan/Problems-Billing Assessment: 63 yo female PMH COPD with chronic hypoxic respiratory failure(2L), CAD with stent Nov 2017 (asa/plavix), vasculopath with b/l fem pop, celiac/SMA stents and bowel resection, frequent UTIs p/w AMS, inability to stand up from floor ( not sure how she got there), mild rhabdo. Left epigastric abdominal tenderness and erythema with CT abd/pelvis noncontrast e/o hernia with bowel and inflammatory changes. s/p Ex-lap with Dr. Earl 09/29 with removal of incarcerated large bowel diverticula. Sepsis (AMS, SBP <100, leukocytosis). BOBBY (resolved) - Patient Problems (1) Incarcerated hernia Current Visit: Yes Status: Acute Code(s): K46.0 - UNSP ABDOMINAL HERNIA WITH OBSTRUCTION, WITHOUT GANGRENE SNOMED Code(s): 99080067 Comment: Appreciate surgery assistance w/ SID drain will switch empiric sepsis abx to cipro flagyl from levaquin given suspected etiology is likely intra-abdominal. got 1 dose of zosyn prior to surgery advance diet as tolerated (defer to surgery) (2) Sepsis Current Visit: Yes Status: Acute Comment: likely 2/2 incarcerated hernia resolved AMS. improved BP. resolved leukocytosis empiric abx switched to cipro/flagyl from levaquin. (3) Chronic respiratory failure with hypoxia Current Visit: Yes Status: Acute Comment: secondary to COPD. (4) Altered mental status Current Visit: No Status: Acute Priority: High Onset Date: 02/15/15 Code (s): R41.82 - ALTERED MENTAL STATUS, UNSPECIFIED SNOMED Code(s): 021123215 Comment: frankly unclear history but presumed from sepsis/incarcerated hernia vs ?UTI(hx of) resolved. (5) PVD (peripheral vascular disease) Current Visit: No Status: Acute Priority: High Code(s): I73.9 - PERIPHERAL VASCULAR DISEASE, UNSPECIFIED SNOMED Code(s): 313953076 Comment: continue aspirin, restart plavix on 10/01 (or sooner if okay with surgery) statin (6) History of COPD Current Visit: No Status: Chronic Priority: Medium Code(s): Z87.09 - PERSONAL HISTORY OF OTHER DISEASES OF THE RESPIRATORY SYSTEM SNOMED Code(s): 473032177 Comment: add dulera(for home symbicort), duonebs, singular. worsened nonproductive cough as outpatient, lungs rhonchorous. (7) Chronic pain Current Visit: No Status: Acute Priority: High Code(s): G89.29 - OTHER CHRONIC PAIN SNOMED Code(s): 36928517 Comment: restart home meds as able to take po: lyrica 50 TID, flexeril 10 TID managed at pain clinic formerly gabapentin currently on in room dining server post surgery (8) Hypothyroid Current Visit: No Status: Acute Priority: High Code(s): E03.9 - HYPOTHYROIDISM, UNSPECIFIED SNOMED Code(s): 53198436 Comment: continue synthroid, (9) CAD (coronary artery disease) Current Visit: Yes Status: Acute Code(s): I25.10 - ATHSCL HEART DISEASE OF [place] CORONARY ARTERY W/O ANG PCTRS SNOMED Code(s): 84650029 Comment: [facility] 12/05/17 -> 2 LAD stents. asa, plavix as soon as surgery allows statin. plan restart BB tomorrow with resolving sepsis. (10) Rhabdomyolysis Current Visit: Yes Status: Acute Code(s): M62.82 - RHABDOMYOLYSIS SNOMED Code(s): 263628451 Comment: CK to 7K, continue IVF. NS 125 cc/hr in setting of ?fall and bruise on right scapula CK daily (11) BOBBY (acute kidney injury) Current Visit: Yes Status: Acute Code(s): N17.9 - ACUTE KIDNEY FAILURE, UNSPECIFIED SNOMED Code(s): 53810191 Comment: resolved, in setting of sepsis, rhabdo. BMP daily. IVF.
[2018-09-29] MEDS ORDERED: fentaNYL* 50 MCG/ML 5 ML VIAL (250 MCG VIAL) ONE (11:37)
[2018-09-29] MEDS ORDERED: Rocuronium* 10 MG/ML VIAL ONE (11:37)
[2018-09-29] MEDS ORDERED: Lidocaine 2% PF * 5 ML VIAL ONE (11:37)
[2018-09-29] MEDS ORDERED: Dexamethasone IV* 4 MG/ML 1 ML (4 MG) ONE (11:37)
[2018-09-29] MEDS ORDERED: KETAMINE HCL* 50 MG/ML 10 ML VIAL ONE (11:37)
[2018-09-29] MEDS ORDERED: Ketorolac INJ* 30 MG/ML 1 ML VIAL ONE (11:37)
[2018-09-29] MEDS ORDERED: Ondansetron INJ* 2 MG/ML VIAL ONE (11:37)
[2018-09-29] MEDS ORDERED: Propofol* 10 MG/ML 20 ML BTL ONE (11:37)
[2018-09-29] MEDS ORDERED: Midazolam* 1 MG/ML 5 ML VIAL (5 MG) ONE (11:37)
[2018-09-29] MEDS ORDERED: ZOSYN 3.375 GM x ONE DOSE over 30 miuntes IVPB ×2 (12:00)
--- NOTE | 2018-09-29 12:11 | CONS ---
CC: Dr. Miguel Parmar; [facility]; Gayla Garg NP; [facility] * SURGICAL CONSULTATION REPORT: DATE OF CONSULT: 09/29/18. LOCATION: The patient seen in room 416. HISTORY OF PRESENT ILLNESS: I was contacted by the hospitalist service to evaluate Ms. Jiménez a 63-year-old female with history of mesenteric ischemia requiring bowel resection appropriately 4 years ago at the [facility] with subsequent SMA stenting and possibly celiac stenting who presented after being found down by her family members. The patient was brought to the hospital where she was resuscitated and a workup was commenced. Portion of the workup included a CT scan, which showed a ventral hernia containing large bowel that was nonobstructing, but showed some inflammatory changes. The patient describes undergoing exploration and bowel resection where a portion of a small was removed due to vascular compromise. This was about 4 years ago. She was kept in the ICU and underwent mesenteric stenting at the same time. She did well in the followup period and followed with the vascular group regularly. The patient does describe having lower abdominal pain. She denies any nausea or vomiting. No obstipation. Her last bowel movement was yesterday. She does have appetite. PAST MEDICAL HISTORY: 1. Coronary artery disease, status post stent placement in November. 2. Peripheral vascular disease including requirement of the SMA stents. 3. Hypertension. 4. COPD, on oxygen at home. 5. Hypothyroidism. 6. Depression. 7. Chronic pain requiring narcotics and benzodiazepines regularly. PAST SURGICAL HISTORY: As described above. MEDICATIONS: 1. Albuterol. 2. Alprazolam. 3. Lisinopril. 4. Synthroid. 5. Cyclobenzaprine. 6. Plavix 75 mg. 7. Symbicort. 8. Atorvastatin. 9. Aspirin 81 mg. 10. Pregabalin. 11. Nitroglycerin as needed. 12. Nebulizers. 13. Singulair. 14. Myrbetriq. 15. Metoprolol. 16. Oxycodone. 17. Sertraline. ALLERGIES: List reviewed. FAMILY HISTORY: Noncontributory. SOCIAL HISTORY: She is a former smoker. She lives alone. Her daughter is her healthcare proxy and checks upon her and I spoke to her today. REVIEW OF SYSTEMS: No fevers or chills. No headache. No shortness of breath. She does have a positive appetite. Does have abdominal pain as described, nonradiating, improved with rest and laying still. She is passing flatus. She denies dysuria, but has history of frequent urinary tract infections. No bleeding or clotting disorders, but is on Plavix. Peripheral disease as described. COPD as described. Depression as described. No endocrine disorders. PHYSICAL EXAM: Vital Signs: Temperature 97.9, blood pressure 199/54, pulse rate of 76. General: She is alert and oriented x3. She is in no apparent distress. Head, Ears, Eyes, Nose, and Throat: Normocephalic and atraumatic. Sclerae anicteric. Mucous membranes are dry. Neck: No lymphadenopathy. Abdomen: Soft, nondistended. Tender just left of the umbilicus along the well healed surgical incision with overlying redness at the site of most tenderness. A mass is appreciated and nonreducible. The patient has a Pfannenstiel incision too. No evidence of groin hernias. No CVA tenderness. Extremities: Without pitting edema. DIAGNOSTIC STUDIES/LAB DATA: Labs show white count of 9, low H and H. Chemistry panel reviewed with elevated CKs. CT scan reviewed and described above. IMPRESSION: Incarcerated ventral hernia with overlying skin changes not consistent with obstruction, but concerning in this patient with history of mesenteric stenting, for the possibility of ischemic bowel. I have recommended urgent trip to operating room for exploration of this hernia and possible full exploration of the abdomen. Outlined the details of repair of the ventral hernia describing the possibility that the patient would require bowel removal; could be small bowel, radiologist's reading is large as well. If it is a large bowel resection, she would most likely go on to have a colostomy placed. This was all described to the patient. My intent is exploratory laparotomy, possible bowel resection, and repair of ventral hernia. The repair to be done with a biologic mesh if we deem this will help. The patient overall runs a significant risk to surgery with her comorbidities and we described the possibility of prolonged hospitalization, ICU care, myocardial infarction, stroke, worsening mesenteric disease, need for additional procedure, need for open abdomen, possibility of . Healthcare proxy was also told of the findings, plan, and the potential complications as well as the alternatives of watchful waiting and antibiotics alone. I do not recommend this given the patient's significant exam and clinical workup at this point with known history of vascular disease. Consent is signed. The patient will get a Puente catheter in the operating room. She will get another dose of antibiotics leading up to surgery. She understands she may go to the ICU in the postoperative period. [id number]/[facility] #: [id number] MTDD
[2018-09-29] MEDS ORDERED: Levalbuterol HFA INHALER* 1 PUFF MDI ONE (12:28)
[2018-09-29] MEDS ORDERED: HYDROmorphone INJ1* 1 MG/ML SYRINGE ONE (14:32)
[2018-09-29] MEDS ORDERED: Naloxone* 0.4 MG/ML 1 ML VIAL IV PRN (14:37)
[2018-09-29] MEDS ORDERED: Ondansetron INJ* 2 MG/ML VIAL IV PRN (14:37)
[2018-09-29] MEDS ORDERED: Levalbuterol 0.63MG/3ML NEB* UNIT OF USE INH PRN (14:37)
--- NOTE | 2018-09-29 15:01 | BRIEFOPN ---
Brief Operative Note - Surgery Procedures: Procedures Pre-OP Diagnoses: incarcerated ventral hernia Post-op Diagnosis: same Procedure: exploratory laparotomy, MEG, excision of portion of large bowel Surgeon: Rajat Asst: none Anethesia: CAT Guerrero EBL: 250cc IVF: 1900cc crystalloid Specimen: portion of large bowel Drains: #7 SID drain at subq space
[2018-09-29] MEDS ORDERED: Naloxone* 0.4 MG/ML 1 ML VIAL IV PUSH PRN (15:22)
[2018-09-29] MEDS ORDERED: fentaNYL* 50 MCG/ML 2 ML VIAL (100 MCG VIAL) ONE ×3 (15:42→16:41)
[2018-09-29] MEDS: fentaNYL* 50 MCG/ML 2 ML VIAL (100 MCG VIAL) IV PRN ×4 (15:43→16:37)
[2018-09-29] MEDS ORDERED: Morphine PCA ADULT* 5 MG/ML 30 ML PCA SCH (16:00)
[2018-09-29] MEDS ORDERED: Atorvastatin* 40 MG TAB PO SCH (18:00)
[2018-09-29] MEDS ORDERED: Albuterol/Ipratropium NEB.SOL* Albuterol 2.5 MG/Ipratropium 0.5 MG 3 ML INH PRN (18:25)
[2018-09-29] MEDS: Ciprofloxacin 400MG IVPREMIX(* 400 MG/200 ML BAG IVPB SCH (20:04)
[2018-09-29] MEDS: Mometasone/Formoter 200/5 MDI INH SCH (20:47)
[2018-09-29] MEDS: metroNIDAZOLE IV 500 MG/100ML* 500 MG/100 ML BAG IVPB SCH (21:45)
[2018-09-30] MEDS: metroNIDAZOLE IV 500 MG/100ML* 500 MG/100 ML BAG IVPB SCH ×4 (03:48→23:01)
[2018-09-30] MEDS: LORazepam INJ* 2 MG/ML 1 ML VIAL IV PUSH PRN (03:48)
[2018-09-30] MEDS: NS 0.9% 1000 ML* 1,000 ML IV SCH ×2 (03:48→22:41)
[2018-09-30 05:57] LABS: ABS Basophils 0 10^3/ul (0-0.2); ABS Eosinophils 0 10^3/ul (0-0.6); ABS Lymphocytes 0.8 10^3/ul (1.0-4.8); ABS Neutrophils 7.9 10^3/ul (1.5-7.7); ABS Nucleated RBC 0 10^3/ul; Corrected Retic Count 0.7 % (0.5-1.5); Eosinophil % 0 %; Hematocrit 28 % (35-47); Hematocrit for Retic CNT 28 % (35-47); Hemoglobin 9.1 g/dl (12.0-16.0); Immature Retic Fraction 0.27; Lymphocyte % 8.6 %; Mean Corpuscular HGB Conc 33 g/dl (31-36); Mean Corpuscular Hemoglobin 30 pg (27-31); Mean Corpuscular Volume 92 fL (80-97); Mean Platelet Volume 8.1 fL (7.4-10.4); Nucleated Red Blood Cells % 0; Platelet Count 172 10^3/ul (150-450); RBC Retic Count 3.05 10^6/ul (4.6-6.2); Red Blood Count 3.05 10^6/ul (4.00-5.40); Red Cell Distribution Width 13 % (10.5-15); White Blood Count 9.8 10^3/ul (3.5-10.8)
--- NOTE | 2018-09-30 06:09 | OP ---
CC: Primary care doctor, Miguel Parmar MD * DATE OF OPERATION: 09/29/18 - ROOM #451 DATE OF : 51 SURGEON: Jasper Earl MD PRIMARY GRADE TEACHER: None. ANESTHESIOLOGIST: Dr. Guerrero. ANESTHESIA: General anesthesia. PRE-OP DIAGNOSIS: Incarcerated ventral hernia. POST-OP DIAGNOSIS: Incarcerated ventral hernia. OPERATIVE PROCEDURE: Exploratory laparotomy, lysis of adhesion, excision of portion of small bowel, and closure of abdomen. BLOOD LOSS: 250 cc. FLUIDS: 1900 cc of crystalloid fluid given. SPECIMEN: Portion of large bowel. DRAIN: #7 SID drain left in the subcutaneous space. DESCRIPTION OF PROCEDURE: The patient was brought to the operating room and placed on the operating table in supine position. Preoperative antibiotics given. Sequential devices were placed on bilateral lower extremities. General anesthesia was induced. A Puente catheter inserted and the patient's abdomen was prepped and draped in standard surgical fashion. A time-out was performed. Previously made incision was cut through again with 10 blade, going through the scar tissue down to the anterior fascia at the superior aspect of the incision and taking it on to the left side of the umbilicus. We then extended our flaps laterally on the left to identify area of hernia sac. There was some scarring at this site and we avoided this area at this point and turned towards entry into the abdomen. We entered the abdomen at the upper portion of the incision. There was significant amount of adhesions, which were taken with sharp dissection with electrocautery and blunt dissection to enter into the cavity. The adhesions were mostly to omentum and transverse colon and these were taken down until we could sweep through most of the anterior abdominal wall at the site of the incision. We then noted a portion of colon what appeared to be sigmoid colon extending towards the hernia. I tried gentle traction on this, but was unable to reduce it. We then turned our attention back to the subcutaneous planes on the left side and dissected the area of the hernia sac. We then opened up the edge of the fascia, inner midline over to the site of the hernia to allow for release and then pulled this down through the hernia and then we looked at the colon. The lesion seemed to be at first a Davidson's type hernia or a knuckle of bowel and the antimesenteric aspect was identified. It appeared somewhat dusky and at this point, we cleared off the overlying tissue freeing up some of the pericolic fat that extended towards the lesion. The lesion appeared more like a diverticula at this point approximately 1 x 1 cm. The base of the diverticula was broad and showed ischemic changes with injury to the wall of the base of this lesion. Again, it was not clear if this was a Davidson's type hernia that had become more ischemic or a diverticula, but it looked mostly like a diverticula at this point. The bowel proximally and distally was also freed off any advancing pericolonic fat, so we could see the valencia well. They appeared intact and at this time, I made a decision to staple off the lesion with a TA stapler. Firing this in a transverse fashion to prevent narrowing of the lumen. We stapled 2 healthy proximal and distal large bowel. The lesion was then passed off. Review of the staple line had showed no bleeding. We then dunked the corners with 3-0 silk sutures. At this point, I noted a small serosal concern on one portion of the bowel that appeared to possibly be a Bovie injury at the time of the dissection clearing this off. I did imbricate this with a 2-0 silk suture taking the staple line and suturing it beyond this lesion, which was only about 2 mm from the staple line itself. Again, it was not through and through and we utilized two stitches to perform this. With this covered, we then dropped this back into the abdomen. Hemostasis was achieved intraabdominally with electrocautery. There had been some oozing secondary to the blunt dissection and significant adhesions. Next, flaps were made laterally on the fascia in both sites. There had already been somewhat made on the left side and we increased this on the right, so we could bring the fascial edges together. The fascia was then reapproximated with #1 loop PDS suture starting superiorly and inferiorly and tieing them in the middle. We then irrigated the subcutaneous tissues. There was some oozing in the fatty planes, but not on the fascia itself. Next, a #7 SID drain was brought in through a separate stab incision and laid across the fascial repair and then the skin incisions were reapproximated with skin adore followed by sterile dressing. We did tack the umbilicus, which was excised off of the abdominal wall to allow for better closure and then tacked it back down to the fascia with 2-0 Vicryl stitch. Skin adore were utilized and sterile dressing was applied. The patient tolerated the procedure , was extubated and transferred to the PACU. [id number]/[facility] #: [id number] FERMÍN
[2018-09-30 06:18] LABS: EGFR Non-African American 96.6 (>60)
[2018-09-30] MEDS: Mometasone/Formoter 200/5 MDI INH SCH ×2 (07:09→19:46)
[2018-09-30] MEDS: Albuterol/Ipratropium NEB.SOL* Albuterol 2.5 MG/Ipratropium 0.5 MG 3 ML INH SCH ×3 (07:09→19:46)
[2018-09-30] MEDS: Ciprofloxacin 400MG IVPREMIX(* 400 MG/200 ML BAG IVPB SCH ×2 (08:10→23:01)
[2018-09-30] MEDS: Montelukast Sodium TAB* 10 MG PO SCH (08:12)
[2018-09-30] MEDS: Pantoprazole IV* 40 MG IV SCH (08:12)
[2018-09-30] MEDS: Aspirin EC TAB* 81 MG TAB.EC PO SCH (08:12)
[2018-09-30] MEDS ORDERED: NS 0.9% 1000 ML* 1,000 ML IV ONE (09:00)
[2018-09-30] MEDS ORDERED: Magnesium Sulfate 2 GM IV* 2 GM/50 ML BAG IVPB ONE (09:23)
--- NOTE | 2018-09-30 10:09 | PN ---
Progress Note - Progress Note Date of Service: 09/30/18 SOAP: Subjective:pod#1 S/P EX LAP,MEG,PORTION OF SMALL BOWEL RESECTED []no nausea,debbie clears;small amt flatus;good pain control;oob in chair Objective: Vital Signs Temp 98.3 F 09/30/18 07:52 Pulse 98 09/30/18 07:52 Resp 16 09/30/18 07:52 BP 91/47 09/30/18 07:52 Pulse Ox 96 09/30/18 07:52 Intake & Output 09/29/18 09/30/18 09/30/18 18:59 06:59 18:59 Intake Total 2100 1309 Output Total 470 810 Balance 1630 499 Intake: IV Fluids 2100 999 LR 2100 NS (0.9%) 999 IVPB 310 ABX - CIPROFLOXACIN 205 ABX - FLAGYL 105 Oral 0 Output: SID #1 20 60 Hernandez 450 750 lungs:few coarse rhonchi;heart:RRR;abd:hypoactive bs,soft,appropriate incisional tenderness;SID dark bloody,sm amt;ext:nontender calves [] Assessment:BP low,mild tachycardia [] Plan:NS 500ml fluid bolus ordered per Dr Earl;follow VS ;keep hernandez for now; inspiron;Mag replacement per Hosp []
--- NOTE | 2018-09-30 14:19 | PN ---
Subjective Date of Service: 09/30/18 Interval History: Pt c/o "indigestion" after walking today. No BM, no flatus. Tolerating clears Objective Active Medications: Albuterol/Ipratropium (Duoneb (Albuterol 2.5 Mg/Ipratropium 0.5 Mg)) 1 neb INH [id number] AWAKE [facility] Aspirin (Aspirin Ec Tab*) 81 mg PO DAILY [facility] Last Admin: 09/30/18 08:12 Dose: 81 mg Clopidogrel Bisulfate (Plavix Tab*) 75 mg PO DAILY [facility] Sodium Chloride (Ns 0.9% 1000 Ml*) 1,000 mls @ 125 mls/hr IV PER RATE [facility] Last Admin: 09/30/18 03:48 Dose: 125 mls/hr Morphine Sulfate (Morphine Tank Truck Mechanic Adult* 5 Mg/Ml) 30 mls @ 0 mls/hr TEACHER ADVISOR .change Q24H [facility]; Protocol Ciprofloxacin/Dextrose (Cipro 400 Mg Ivpremix(*)) 400 mg in 200 mls @ 200 mls/ hr IVPB Q12H [facility] Last Admin: 09/30/18 08:10 Dose: 200 mls/hr Metronidazole/Sodium Chloride (Flagyl 500 Mg Ivpb*) 500 mg in 100 mls @ 100 mls /hr IVPB Q8H [facility] Last Admin: 09/30/18 13:07 Dose: 100 mls/hr Lorazepam (Ativan Inj*) 0.5 mg IV PUSH Q6H PRN PRN Reason: ANXIETY Last Admin: 09/30/18 03:48 Dose: 0.5 mg Mometasone Furoate/Formoterol Fumar (Dulera 200/5 Mdi*) 2 puff INH BID [facility] Last Admin: 09/30/18 07:09 Dose: 2 puff Montelukast Sodium (Singulair Tab*) 10 mg PO DAILY [facility] Last Admin: 09/30/18 08:12 Dose: 10 mg Naloxone HCl (Narcan*) 0.08 mg IV PUSH .Q2MIN PRN PRN Reason: OVERSEDATION Pantoprazole Sodium (Protonix Iv*) 40 mg IV DAILY [facility] Last Admin: 09/30/18 08:12 Dose: 40 mg Vital Signs - 8 hr 09/30/18 09/30/18 09/30/18 06:30 07:00 07:15 Temperature Pulse Rate 96 Respiratory 22 18 17 Rate Blood Pressure (mmHg) O2 Sat by Pulse 94 96 96 Oximetry 09/30/18 09/30/18 09/30/18 07:52 08:00 09:00 Temperature 98.3 F Pulse Rate 98 Respiratory 16 16 18 Rate Blood Pressure 91/47 (mmHg) O2 Sat by Pulse 96 96 96 Oximetry 09/30/18 09/30/18 09/30/18 11:00 11:37 11:39 Temperature 98.7 F Pulse Rate 104 104 Respiratory 18 16 Rate Blood Pressure 81/44 100/62 (mmHg) O2 Sat by Pulse 96 99 99 Oximetry 09/30/18 12:48 Temperature Pulse Rate 105 Respiratory 17 Rate Blood Pressure (mmHg) O2 Sat by Pulse 93 Oximetry Oxygen Devices in Use Now: Nasal Cannula Appearance: 63 yo F in nAD, aAOx3 Eyes: No Scleral Icterus, PERRLA Ears/Nose/Mouth/Throat: NL Teeth, Lips, Gums, Mucous Membranes Moist Neck: NL Appearance and Movements; NL JVP, Trachea Midline Respiratory: - - scant wheezes b/l mid lungs Cardiovascular: NL Sounds; No Murmurs; No JVD, RRR Abdominal: - - mild distention noted, midline incision covered with surgical dressings, SID drain in L abd, BS hypoactive Extremities: No Edema, No Clubbing, Cyanosis Skin: No Rash or Ulcers, No Nodules or Sclerosis Neurological: Alert and Oriented x 3, NL Muscle Strength and Tone Result Diagrams: 09/30/18 05:39 09/30/18 05:39 Additional Lab and Data: Laboratory Results - last 24 hr 09/28/18 09/28/18 09/28/18 19:13 19:13 19:13 WBC 11.9 H RBC 4.09 Hgb 12.3 Hct 37 MCV 91 MCH 30 MCHC 33 RDW 13 Plt Count 202 MPV 8.5 Neut % (Auto) 81.9 Lymph % (Auto) 7.6 Boyd % (Auto) 9.6 Eos % (Auto) 0.7 Baso % (Auto) 0.2 Absolute Neuts (auto) 9.8 H Absolute Lymphs (auto) 0.9 L Absolute Monos (auto) 1.1 H Absolute Eos (auto) 0.1 Absolute Basos (auto) 0 Absolute Nucleated RBC 0 Nucleated RBC % 0 INR (Anticoag Therapy) 0.97 Sodium 132 L Potassium 4.6 Chloride 97 L Carbon Dioxide 30 Anion Gap 5 BUN 19 Creatinine 1.21 H Est GFR ( Amer) 54.0 Est GFR (Non-Af Amer) 44.7 BUN/Creatinine Ratio 15.7 Glucose 101 H Lactic Acid Calcium 9.3 Total Bilirubin 0.60 AST 54 H ALT 34 Alkaline Phosphatase 52 Total Creatine Kinase 2691 H Troponin I 0.01 Total Protein 6.8 Albumin 4.1 Globulin 2.7 Albumin/Globulin Ratio 1.5 Urine Color Urine Appearance Urine pH Ur Specific Morehead Urine Protein Urine Ketones Urine Blood Urine Nitrate Urine Bilirubin Urine Urobilinogen Ur Leukocyte Esterase Urine WBC (Auto) Urine RBC (Auto) Ur Squamous Epith Cells Urine Bacteria Urine Glucose Salicylates < 2.50 Urine Opiates Screen Acetaminophen < 15 Ur Barbiturates Screen Ur Phencyclidine Scrn Ur Amphetamines Screen U Benzodiazepines Scrn Urine Cocaine Screen U Cannabinoids Screen Serum Alcohol < 10 09/28/18 09/29/18 09/29/18 19:13 06:15 06:15 WBC RBC Hgb Hct MCV MCH MCHC RDW Plt Count MPV Neut % (Auto) Lymph % (Auto) Boyd % (Auto) Eos % (Auto) Baso % (Auto) Absolute Neuts (auto) Absolute Lymphs (auto) Absolute Monos (auto) Absolute Eos (auto) Absolute Basos (auto) Absolute Nucleated RBC Nucleated RBC % INR (Anticoag Therapy) Sodium Potassium Chloride Carbon Dioxide Anion Gap BUN Creatinine Est GFR ( Amer) Est GFR (Non-Af Amer) BUN/Creatinine Ratio Glucose Lactic Acid 0.5 Calcium Total Bilirubin AST ALT Alkaline Phosphatase Total Creatine Kinase Troponin I Total Protein Albumin Globulin Albumin/Globulin Ratio Urine Color Straw Urine Appearance Clear Urine pH 6.0 Ur Specific Morehead 1.005 L Urine Protein Negative Urine Ketones Negative Urine Blood Negative Urine Nitrate Negative Urine Bilirubin Negative Urine Urobilinogen Negative Ur Leukocyte Esterase 3+ A Urine WBC (Auto) 3+(>20/hpf) A Urine RBC (Auto) Trace(0-2/hpf) Ur Squamous Epith Cells Present A Urine Bacteria 1+ A Urine Glucose Negative Salicylates Urine Opiates Screen Presumptive positive A Acetaminophen Ur Barbiturates Screen None detected Ur Phencyclidine Scrn None detected Ur Amphetamines Screen None detected U Benzodiazepines Scrn Presumptive positive A Urine Cocaine Screen None detected U Cannabinoids Screen None detected Serum Alcohol 09/29/18 09/29/18 06:49 06:49 WBC 9.1 RBC 3.87 L Hgb 11.8 L Hct 35 MCV 92 MCH 31 MCHC 33 RDW 13 Plt Count 192 MPV 8.5 Neut % (Auto) 66.4 Lymph % (Auto) 18.5 Boyd % (Auto) 13.3 Eos % (Auto) 1.6 Baso % (Auto) 0.2 Absolute Neuts (auto) 6.1 Absolute Lymphs (auto) 1.7 Absolute Monos (auto) 1.2 H Absolute Eos (auto) 0.1 Absolute Basos (auto) 0 Absolute Nucleated RBC 0 Nucleated RBC % 0.1 INR (Anticoag Therapy) Sodium 139 Potassium 3.9 Chloride 104 Carbon Dioxide 28 Anion Gap 7 BUN 15 Creatinine 0.83 Est GFR ( Amer) 83.5 Est GFR (Non-Af Amer) 69.0 BUN/Creatinine Ratio 18.1 Glucose 98 Lactic Acid Calcium 8.8 Total Bilirubin AST ALT Alkaline Phosphatase Total Creatine Kinase 8017 H Troponin I Total Protein Albumin Globulin Albumin/Globulin Ratio Urine Color Urine Appearance Urine pH Ur Specific Morehead Urine Protein Urine Ketones Urine Blood Urine Nitrate Urine Bilirubin Urine Urobilinogen Ur Leukocyte Esterase Urine WBC (Auto) Urine RBC (Auto) Ur Squamous Epith Cells Urine Bacteria Urine Glucose Salicylates Urine Opiates Screen Acetaminophen Ur Barbiturates Screen Ur Phencyclidine Scrn Ur Amphetamines Screen U Benzodiazepines Scrn Urine Cocaine Screen U Cannabinoids Screen Serum Alcohol Microbiology and Other Data: Microbiology 09/29/18 06:15 Urine Culture - Final Urine Assess/Plan/Problems-Billing Assessment: 63 yo female PMH COPD with chronic hypoxic respiratory failure(2L), CAD with stent Nov 2017 (asa/plavix), vasculopath with b/l fem pop, celiac/SMA stents and bowel resection, frequent UTIs p/w AMS, inability to stand up from floor ( not sure how she got there), mild rhabdo. Left epigastric abdominal tenderness and erythema with CT abd/pelvis noncontrast e/o hernia with bowel and inflammatory changes. s/p Ex-lap with Dr. Earl 09/29 with removal of incarcerated large bowel diverticula. Sepsis (AMS, SBP <100, leukocytosis). BOBBY (resolved) - Patient Problems (1) Incarcerated hernia Comment: Appreciate surgery assistance w/ SID drain cont cipro flagyl from levaquin given suspected etiology is likely intra- abdominal. got 1 dose of zosyn prior to surgery on clears(defer to surgery) (2) BOBBY (acute kidney injury) Comment: resolved, in setting of sepsis, rhabdo. BMP daily. IVF. (3) Chronic respiratory failure with hypoxia Comment: secondary to COPD. (4) Rhabdomyolysis Comment: resolving in setting of ?fall and bruise on right scapula CK daily (5) Sepsis Comment: likely 2/2 incarcerated hernia resolved AMS. improved BP. resolved leukocytosis empiric abx switched to cipro/flagyl from levaquin. (6) Altered mental status Comment: frankly unclear history but presumed from sepsis/incarcerated hernia vs ?UTI(hx of)-encephalopathy due to sepsis resolved. (7) PVD (peripheral vascular disease) Comment: continue aspirin, restart plavix on 10/01 (or sooner if okay with surgery) statin (8) DVT prophylaxis Comment: hep subq Status and Disposition: inpatient
[2018-09-30 16:39] LABS: Hematocrit 25 % (35-47); Hemoglobin 8.4 g/dl (12.0-16.0)
[2018-09-30] MEDS: Heparin VIAL(*) 5000 UNITS/ML VIAL (FIVE THOUSAND) SUBCUT SCH (22:41)
[2018-10-01] MEDS: Albuterol/Ipratropium NEB.SOL* Albuterol 2.5 MG/Ipratropium 0.5 MG 3 ML INH SCH ×4 (00:15→19:16)
[2018-10-01] MEDS: Ciprofloxacin 400MG IVPREMIX(* 400 MG/200 ML BAG IVPB SCH ×2 (00:18→11:57)
[2018-10-01] MEDS: LORazepam INJ* 2 MG/ML 1 ML VIAL IV PUSH PRN (00:57)
--- NOTE | 2018-10-01 01:54 | PN ---
Progress Note - Progress Note Date of Service: 10/01/18 Note: Paged for SOB and tachycardia - EKG shows rapid afib with ST depression in lateral leads. Denies CP. States she has had an irregular rhythm in the past. POD #2 from incarcerated hernia repair. LUngs are diminished but clear. Will transfer to 4S, for dilitiazem bolus and drip. Will check BMP, Mg, Trop and CBC. May need blood. Hold of on anticoagulation in setting of recent surgery and gradual decline in H&H for now.
[2018-10-01 02:25] LABS: ABS Basophils 0 10^3/ul (0-0.2); ABS Eosinophils 0 10^3/ul (0-0.6); ABS Lymphocytes 1.1 10^3/ul (1.0-4.8); ABS Monocytes 0.8 10^3/ul (0-0.8); ABS Neutrophils 5.7 10^3/ul (1.5-7.7); ABS Nucleated RBC 0 10^3/ul; Eosinophil % 0.5 %; Hematocrit 30 % (35-47); Hemoglobin 9.9 g/dl (12.0-16.0); Lymphocyte % 14.4 %; Mean Corpuscular HGB Conc 33 g/dl (31-36); Mean Corpuscular Hemoglobin 31 pg (27-31); Mean Corpuscular Volume 92 fL (80-97); Mean Platelet Volume 8.2 fL (7.4-10.4); Nucleated Red Blood Cells % 0; Platelet Count 152 10^3/ul (150-450); Red Blood Count 3.26 10^6/ul (4.00-5.40); Red Cell Distribution Width 13 % (10.5-15); White Blood Count 7.7 10^3/ul (3.5-10.8)
[2018-10-01] MEDS ORDERED: Diltiazem IV* 5 MG/ML 5 ML VIAL (for loading dose/IV Push) (25 MG) IV SLOW PU ONE (02:25)
[2018-10-01] MEDS ORDERED: Diltiazem IV VIAL* 125 MG in NS 0.9% 100 ML* 100 ML IV SCH ×4 (02:30→05:30)
[2018-10-01 02:40] LABS: EGFR Non-African American 106.4 (>60)
[2018-10-01] MEDS ORDERED: KCL 20 MEQ/100 ML IVPREMIX* 20 MEQ/100 ML BAG IV ONE (02:57)
[2018-10-01] MEDS ORDERED: Furosemide IV* 10 MG/ML 2 ML VIAL (20 MG) IV ONE (03:07)
[2018-10-01] MEDS ORDERED: Digoxin IV* 0.5 MG/2 ML AMP (0.25 MG/ML) IV SLOW PU ONE (05:20)
[2018-10-01 06:16] LABS: ABS Basophils 0 10^3/ul (0-0.2); ABS Eosinophils 0 10^3/ul (0-0.6); ABS Lymphocytes 0.9 10^3/ul (1.0-4.8); ABS Monocytes 0.9 10^3/ul (0-0.8); ABS Neutrophils 5.9 10^3/ul (1.5-7.7); ABS Nucleated RBC 0 10^3/ul; Eosinophil % 0.6 %; Hematocrit 31 % (35-47); Hemoglobin 10.4 g/dl (12.0-16.0); Lymphocyte % 11.9 %; Mean Corpuscular HGB Conc 33 g/dl (31-36); Mean Corpuscular Hemoglobin 31 pg (27-31); Mean Corpuscular Volume 91 fL (80-97); Mean Platelet Volume 8.2 fL (7.4-10.4); Nucleated Red Blood Cells % 0; Platelet Count 164 10^3/ul (150-450); Red Cell Distribution Width 13 % (10.5-15); White Blood Count 7.8 10^3/ul (3.5-10.8)
[2018-10-01 06:35] LABS: EGFR Non-African American 102.3 (>60)
[2018-10-01] MEDS: Heparin VIAL(*) 5000 UNITS/ML VIAL (FIVE THOUSAND) SUBCUT SCH ×3 (06:45→22:04)
[2018-10-01] MEDS: Mometasone/Formoter 200/5 MDI INH SCH ×3 (08:18→19:16)
[2018-10-01] MEDS: metroNIDAZOLE IV 500 MG/100ML* 500 MG/100 ML BAG IVPB SCH ×3 (08:30→23:12)
[2018-10-01] MEDS: Montelukast Sodium TAB* 10 MG PO SCH (08:31)
[2018-10-01] MEDS: Clopidogrel TAB* 75 MG PO SCH (08:31)
[2018-10-01] MEDS: Aspirin EC TAB* 81 MG TAB.EC PO SCH (08:31)
[2018-10-01] MEDS: Pantoprazole IV* 40 MG IV SCH (08:31)
[2018-10-01] MEDS: Metoprolol Succinate XL TAB* 25 MG PO SCH (09:28)
--- NOTE | 2018-10-01 09:55 | PN ---
Progress Note - Progress Note Date of Service: 10/01/18 SOAP: Subjective: Pt seen and examined. overnight events notes. Afib transferred to tele on cardizem gtt. Continued pain, positive cough- nonproductive. no flatus, no nausea. thirsty. transfused 1 u prbc for blood loss Objective: Temp Pulse Resp BP Pulse Ox 98.7 F 107 24 110/68 91 10/01/18 07:38 10/01/18 08:23 10/01/18 08:39 10/01/18 07:45 10/01/18 08:39 Intake & Output 09/30/18 10/01/18 10/01/18 22:59 06:59 14:59 Intake Total 2743 704 Output Total 710 1980 Balance 2033 -1276 Weight 182 lb 4.8 oz on 9L O2 NC good urine output a and o x3, mild distress lungs course BS b/l abdo: soft/ ND/ incisional tenderness dressing intact, hypoactive BS SID serous no calf tenderness labs noted Assessment: POD 2 ex lap, resesction of LB lesion and closure of ventral hernia, afib, Plan: clears minimal IVF transfer to ICU subq hep, gi proph
--- NOTE | 2018-10-01 10:36 | PN ---
Subjective Date of Service: 10/01/18 Interval History: pt was noted to be in A. fib with RVR and pulm edema at approx 1 AM, transferred to telem floor. Today c/o more bad pain and SOB, but improved. Converted to NSR on Cardizem gtt this aM. Duration of A. fib overall <12H Objective Active Medications: Albuterol/Ipratropium (Duoneb (Albuterol 2.5 Mg/Ipratropium 0.5 Mg)) 1 neb INH [id number] AWAKE [facility] Last Admin: 10/01/18 08:18 Dose: 1 neb Aspirin (Aspirin Ec Tab*) 81 mg PO DAILY [facility] Last Admin: 10/01/18 08:31 Dose: 81 mg Clopidogrel Bisulfate (Plavix Tab*) 75 mg PO DAILY [facility] Last Admin: 10/01/18 08:31 Dose: 75 mg Heparin Sodium (Porcine) (Heparin Vial(*)) 5,000 units SUBCUT Q8HR [facility] Last Admin: 10/01/18 06:45 Dose: 5,000 units Morphine Sulfate (Morphine Defect Cutter Adult* 5 Mg/Ml) 30 mls @ 0 mls/hr [employer]DER .change Q24H [facility]; Protocol Last Admin: 10/01/18 03:13 Dose: 1 mls/hr Ciprofloxacin/Dextrose (Cipro 400 Mg Ivpremix(*)) 400 mg in 200 mls @ 200 mls/ hr IVPB 0000,1200 [facility] Last Admin: 10/01/18 00:18 Dose: 200 mls/hr Metronidazole/Sodium Chloride (Flagyl 500 Mg Ivpb*) 500 mg in 100 mls @ 100 mls /hr IVPB 0730,1530,2330 [facility] Last Admin: 10/01/18 08:30 Dose: 100 mls/hr Diltiazem HCl 125 mg/ Sodium (Chloride) 125 mls @ 15 mls/hr IV Q8H [facility]; Protocol Last Admin: 10/01/18 05:40 Dose: 15 mls/hr Lorazepam (Ativan Inj*) 0.5 mg IV PUSH Q6H PRN PRN Reason: ANXIETY Last Admin: 10/01/18 00:57 Dose: 0.5 mg Metoprolol Succinate (Toprol Xl Tab*) 25 mg PO DAILY [facility] Last Admin: 10/01/18 09:28 Dose: 25 mg Mometasone Furoate/Formoterol Fumar (Dulera 200/5 Mdi*) 2 puff INH BID [facility] Last Admin: 10/01/18 08:23 Dose: Not Given Montelukast Sodium (Singulair Tab*) 10 mg PO DAILY [facility] Last Admin: 10/01/18 08:31 Dose: 10 mg Naloxone HCl (Narcan*) 0.08 mg IV PUSH .Q2MIN PRN PRN Reason: OVERSEDATION Pantoprazole Sodium (Protonix Iv*) 40 mg IV DAILY [facility] Last Admin: 10/01/18 08:31 Dose: 40 mg Vital Signs - 8 hr 10/01/18 10/01/18 10/01/18 02:48 02:52 02:57 Temperature Pulse Rate 106 128 Respiratory Rate Blood Pressure 92/59 109/61 102/63 (mmHg) O2 Sat by Pulse 87 88 Oximetry 10/01/18 10/01/18 10/01/18 03:00 03:03 03:07 Temperature Pulse Rate 123 113 Respiratory Rate Blood Pressure 112/68 110/66 (mmHg) O2 Sat by Pulse 88 90 Oximetry 10/01/18 10/01/18 10/01/18 03:12 03:13 03:17 Temperature Pulse Rate 129 Respiratory 20 Rate Blood Pressure 110/67 116/69 (mmHg) O2 Sat by Pulse 92 Oximetry 10/01/18 10/01/18 10/01/18 03:21 03:24 03:27 Temperature Pulse Rate 139 Respiratory 22 Rate Blood Pressure 104/71 110/64 (mmHg) O2 Sat by Pulse 90 88 Oximetry 10/01/18 10/01/18 10/01/18 03:32 03:38 03:49 Temperature Pulse Rate Respiratory 22 Rate Blood Pressure 110/62 100/64 (mmHg) O2 Sat by Pulse Oximetry 10/01/18 10/01/18 10/01/18 03:53 04:00 04:07 Temperature Pulse Rate 126 103 144 Respiratory Rate Blood Pressure 112/90 113/74 (mmHg) O2 Sat by Pulse 93 94 93 Oximetry 10/01/18 10/01/18 10/01/18 04:11 04:12 04:13 Temperature Pulse Rate 125 Respiratory 20 Rate Blood Pressure 117/78 118/65 (mmHg) O2 Sat by Pulse 93 Oximetry 12/04/18 12/04/18 12/04/18 04:18 04:22 04:29 Temperature Pulse Rate 144 132 Respiratory Rate Blood Pressure 120/75 126/74 67/41 (mmHg) O2 Sat by Pulse 93 93 Oximetry 10/01/18 10/01/18 10/01/18 04:31 04:33 05:00 Temperature Pulse Rate 120 110 137 Respiratory Rate Blood Pressure 119/74 109/67 (mmHg) O2 Sat by Pulse 94 96 Oximetry 10/01/18 10/01/18 10/01/18 05:41 05:42 05:44 Temperature Pulse Rate 128 130 70 Respiratory Rate Blood Pressure 112/81 116/71 (mmHg) O2 Sat by Pulse 98 96 Oximetry 10/01/18 10/01/18 10/01/18 05:49 05:54 05:59 Temperature Pulse Rate 123 123 Respiratory Rate Blood Pressure 127/64 111/65 99/74 (mmHg) O2 Sat by Pulse 98 96 Oximetry 10/01/18 10/01/18 10/01/18 06:00 06:02 06:14 Temperature Pulse Rate 102 110 Respiratory Rate Blood Pressure 109/66 68/54 (mmHg) O2 Sat by Pulse 96 94 Oximetry 10/01/18 10/01/18 10/01/18 06:15 06:18 06:29 Temperature Pulse Rate 112 116 Respiratory Rate Blood Pressure 109/58 104/59 (mmHg) O2 Sat by Pulse 95 96 97 Oximetry 10/01/18 10/01/18 10/01/18 06:44 06:46 06:52 Temperature Pulse Rate 110 110 Respiratory 24 Rate Blood Pressure 115/67 99/68 (mmHg) O2 Sat by Pulse 92 92 90 Oximetry 10/01/18 10/01/18 10/01/18 07:00 07:14 07:38 Temperature 98.7 F Pulse Rate 99 102 Respiratory 18 Rate Blood Pressure 106/62 101/57 (mmHg) O2 Sat by Pulse 92 98 Oximetry 10/01/18 10/01/18 10/01/18 07:45 08:00 08:23 Temperature Pulse Rate 112 94 107 Respiratory 18 Rate Blood Pressure 110/68 (mmHg) O2 Sat by Pulse 98 99 97 Oximetry 10/01/18 08:39 Temperature Pulse Rate Respiratory 24 Rate Blood Pressure (mmHg) O2 Sat by Pulse 91 Oximetry Oxygen Devices in Use Now: Nasal Cannula Appearance: 63 yo f in nAD, aAOx3 Eyes: No Scleral Icterus, PERRLA Ears/Nose/Mouth/Throat: NL Teeth, Lips, Gums, Mucous Membranes Moist Neck: NL Appearance and Movements; NL JVP Respiratory: Symmetrical Chest Expansion and Respiratory Effort, - - rales at b/ l bases to mid lungs Cardiovascular: NL Sounds; No Murmurs; No JVD, RRR Abdominal: - - tender diffusely, no rebound, no guarding, BS hypoactive, distended , tympanic Lymphatic: No Cervical Adenopathy Extremities: No Edema, No Clubbing, Cyanosis Skin: No Nodules or Sclerosis, - - midline incision in abd covered with surgical dressings. 1x SID in L abd present Neurological: Alert and Oriented x 3, NL Muscle Strength and Tone Result Diagrams: 10/01/18 06:03 10/01/18 06:03 Additional Lab and Data: Laboratory Results - last 24 hr 09/28/18 09/28/18 09/28/18 19:13 19:13 19:13 WBC 11.9 H RBC 4.09 Hgb 12.3 Hct 37 MCV 91 MCH 30 MCHC 33 RDW 13 Plt Count 202 MPV 8.5 Neut % (Auto) 81.9 Lymph % (Auto) 7.6 [place] % (Auto) 9.6 Eos % (Auto) 0.7 Baso % (Auto) 0.2 Absolute Neuts (auto) 9.8 H Absolute Lymphs (auto) 0.9 L Absolute Monos (auto) 1.1 H Absolute Eos (auto) 0.1 Absolute Basos (auto) 0 Absolute Nucleated RBC 0 Nucleated RBC % 0 INR (Anticoag Therapy) 0.97 Sodium 132 L Potassium 4.6 Chloride 97 L Carbon Dioxide 30 Anion Gap 5 BUN 19 Creatinine 1.21 H Est GFR ( Amer) 54.0 Est GFR (Non-Af Amer) 44.7 BUN/Creatinine Ratio 15.7 Glucose 101 H Lactic Acid Calcium 9.3 Total Bilirubin 0.60 AST 54 H ALT 34 Alkaline Phosphatase 52 Total Creatine Kinase 2691 H Troponin I 0.01 Total Protein 6.8 Albumin 4.1 Globulin 2.7 Albumin/Globulin Ratio 1.5 Urine Color Urine Appearance Urine pH Ur Specific [place] Urine Protein Urine Ketones Urine Blood Urine Nitrate Urine Bilirubin Urine Urobilinogen Ur Leukocyte Esterase Urine WBC (Auto) Urine RBC (Auto) Ur Squamous Epith Cells Urine Bacteria Urine Glucose Salicylates < 2.50 Urine Opiates Screen Acetaminophen < 15 Ur Barbiturates Screen Ur Phencyclidine Scrn Ur Amphetamines Screen U Benzodiazepines Scrn Urine Cocaine Screen U Cannabinoids Screen Serum Alcohol < 10 09/28/18 09/29/18 09/29/18 19:13 06:15 06:15 WBC RBC Hgb Hct MCV MCH MCHC RDW Plt Count MPV Neut % (Auto) Lymph % (Auto) [place] % (Auto) Eos % (Auto) Baso % (Auto) Absolute Neuts (auto) Absolute Lymphs (auto) Absolute Monos (auto) Absolute Eos (auto) Absolute Basos (auto) Absolute Nucleated RBC Nucleated RBC % INR (Anticoag Therapy) Sodium Potassium Chloride Carbon Dioxide Anion Gap BUN Creatinine Est GFR ( Amer) Est GFR (Non-Af Amer) BUN/Creatinine Ratio Glucose Lactic Acid 0.5 Calcium Total Bilirubin AST ALT Alkaline Phosphatase Total Creatine Kinase Troponin I Total Protein Albumin Globulin Albumin/Globulin Ratio Urine Color Straw Urine Appearance Clear Urine pH 6.0 Ur Specific [place] 1.005 L Urine Protein Negative Urine Ketones Negative Urine Blood Negative Urine Nitrate Negative Urine Bilirubin Negative Urine Urobilinogen Negative Ur Leukocyte Esterase 3+ A Urine WBC (Auto) 3+(>20/hpf) A Urine RBC (Auto) Trace(0-2/hpf) Ur Squamous Epith Cells Present A Urine Bacteria 1+ A Urine Glucose Negative Salicylates Urine Opiates Screen Presumptive positive A Acetaminophen Ur Barbiturates Screen None detected Ur Phencyclidine Scrn None detected Ur Amphetamines Screen None detected U Benzodiazepines Scrn Presumptive positive A Urine Cocaine Screen None detected U Cannabinoids Screen None detected Serum Alcohol 09/29/18 09/29/18 06:49 06:49 WBC 9.1 RBC 3.87 L Hgb 11.8 L Hct 35 MCV 92 MCH 31 MCHC 33 RDW 13 Plt Count 192 MPV 8.5 Neut % (Auto) 66.4 Lymph % (Auto) 18.5 [place] % (Auto) 13.3 Eos % (Auto) 1.6 Baso % (Auto) 0.2 Absolute Neuts (auto) 6.1 Absolute Lymphs (auto) 1.7 Absolute Monos (auto) 1.2 H Absolute Eos (auto) 0.1 Absolute Basos (auto) 0 Absolute Nucleated RBC 0 Nucleated RBC % 0.1 INR (Anticoag Therapy) Sodium 139 Potassium 3.9 Chloride 104 Carbon Dioxide 28 Anion Gap 7 BUN 15 Creatinine 0.83 Est GFR ( Amer) 83.5 Est GFR (Non-Af Amer) 69.0 BUN/Creatinine Ratio 18.1 Glucose 98 Lactic Acid Calcium 8.8 Total Bilirubin AST ALT Alkaline Phosphatase Total Creatine Kinase 8017 H Troponin I Total Protein Albumin Globulin Albumin/Globulin Ratio Urine Color Urine Appearance Urine pH Ur Specific [place] Urine Protein Urine Ketones Urine Blood Urine Nitrate Urine Bilirubin Urine Urobilinogen Ur Leukocyte Esterase Urine WBC (Auto) Urine RBC (Auto) Ur Squamous Epith Cells Urine Bacteria Urine Glucose Salicylates Urine Opiates Screen Acetaminophen Ur Barbiturates Screen Ur Phencyclidine Scrn Ur Amphetamines Screen U Benzodiazepines Scrn Urine Cocaine Screen U Cannabinoids Screen Serum Alcohol Microbiology and Other Data: Microbiology 09/29/18 06:15 Urine Culture - Final Urine Assess/Plan/Problems-Billing Assessment: 63 yo female PMH COPD with chronic hypoxic respiratory failure(2L), CAD with stent Nov 2017 (asa/plavix), vasculopath with b/l fem pop, celiac/SMA stents and bowel resection, frequent UTIs p/w AMS, inability to stand up from floor ( not sure how she got there), mild rhabdo. Left epigastric abdominal tenderness and erythema with CT abd/pelvis noncontrast e/o hernia with bowel and inflammatory changes. s/p Ex-lap with Dr. Earl 09/29 with removal of incarcerated large bowel diverticula. Sepsis (AMS, SBP <100, leukocytosis). BOBBY (resolved) - Patient Problems (1) Atrial fibrillation with rapid ventricular response Comment: transient , on 10/01/18, less then 12 H. Convereted on Cardizem gtt. will d/c Cardizem IV, start Cardizem IR, cont Toprol XL (2) Pulmonary edema Comment: IVF used to tc rhabdo jenniferley contributed Stop IVF. Lasix x one more dose today, agree with transfer to ICU (D/w DR. Earl ) Echo ordered (3) Incarcerated hernia Comment: Appreciate surgery assistance. More tender today on exam d/w Dr. Earl w/ SID drain cont cipro flagyl from levaquin given suspected etiology is likely intra- abdominal. got 1 dose of zosyn prior to surgery on clears(defer to surgery) (4) BOBBY (acute kidney injury) Comment: resolved, in setting of sepsis, rhabdo. BMP daily. IVF. (5) Chronic respiratory failure with hypoxia Comment: secondary to COPD. (6) Rhabdomyolysis Comment: resolving in setting of ?fall and bruise on right scapula CK daily (7) Sepsis Comment: likely 2/2 incarcerated hernia resolved AMS. improved BP. resolved leukocytosis empiric abx switched to cipro/flagyl from levaquin. (8) Altered mental status Comment: frankly unclear history but presumed from sepsis/incarcerated hernia vs ?UTI(hx of)-encephalopathy due to sepsis resolved. (9) PVD (peripheral vascular disease) Comment: continue aspirin, restart plavix on 10/01 (or sooner if okay with surgery) statin (10) DVT prophylaxis Comment: hep subq Status and Disposition: inpatient
[2018-10-01] MEDS ORDERED: Furosemide IV* 10 MG/ML VIAL (40 MG) IV ONE (10:37)
[2018-10-01] MEDS: KCL 20 MEQ/100 ML IVPREMIX* 20 MEQ/100 ML BAG IV SCH ×2 (11:07→13:28)
[2018-10-01] MEDS: Diltiazem TAB* 30 MG PO SCH ×2 (11:57→18:55)
--- NOTE | 2018-10-01 17:56 | ECHO ---
Patient: ANJEL ELL[facility] Rec#: [id number] : 1955 Date: 10/01/2018 Age: 63y Height: 172.7 cm / 68.0 in Weight: 82.6 kg / 182.1 lbs Sex: F BSA: 2 Room#: ICU 4 Admit Date#: 09/29/2018 Type: Inpatient Referring: Danya Hernandez MD Reading: Alex Elizabeth MD Bean Snipper: Marguerite Chopra RN RDCS CC: Miguel Parmar MD Transthoracic Echocardiogram Indication: CHF BP: 110/68 HR: 87 Rhythm: NSR with PVCs Findings History: CAD, PCI, HTN, COPD, PVD Technical Comments: The study quality is fair. The study is technically limited due to patient body habitus. The study is technically limited due to the patient's history of COPD. Left Ventricle: The left ventricular chamber size is normal. Mild concentric left ventricular hypertrophy is observed. Global left ventricular wall motion and contractility are within normal limits. There is normal left ventricular systolic function. The estimated ejection fraction is 55-60%. There is no consistent Doppler evidence of clinically significant diastolic dysfunction. Abnormal left ventricular diastolic filling is observed, consistent with impaired relaxation. Left Atrium: The left atrium is mildly dilated. Right Ventricle: The right ventricular cavity size is normal. The right ventricular global systolic function is normal. Right Atrium: The right atrium is mildly dilated. Aortic Valve: The aortic valve is trileaflet. The aortic valve leaflets are moderately thickened. Systolic excursion of the aortic valve cusps is reduced. There is mild aortic regurgitation. There is moderate aortic stenosis. The mean gradient of the aortic valve is 20 mmHg. The peak instantaneous gradient of the aortic valve is 38 mmHg. The aortic valve area, by peak velocities, is calculated at 1.3 cm2. The aortic valve area, by VTI's, is calculated at 1.3 cm2. The dimensionless index is 0.40-0.42. Mitral Valve: There is mild mitral regurgitation. There is no evidence of mitral stenosis. Tricuspid Valve: The tricuspid valve leaflets are normal. There is mild to moderate tricuspid regurgitation. Unable to estimate the right ventricular systolic pressure. There is no tricuspid stenosis. Pulmonic Valve: The pulmonic valve appears normal. There is trace to mild pulmonic regurgitation. There is no pulmonic stenosis. Pericardium: There is no significant pericardial effusion. A pericardial fat pad is visualized. Aorta: There is no dilatation of the ascending aorta. The aortic arch is not well visualized. There is no dilation of the aortic root. Pulmonary Artery: The main pulmonary artery is not well visualized. Venous: The inferior vena cava is dilated. There is less than 50% respiratory change in the inferior vena cava dimension. Summary: There are no significant changes when compared to the previous study done on 12/03/17 Conclusions Mild concentric left ventricular hypertrophy is observed. Global left ventricular wall motion and contractility are within normal limits. There is normal left ventricular systolic function. The estimated ejection fraction is 55-60%. The aortic valve leaflets are moderately thickened. There is mild aortic regurgitation. There is moderate aortic stenosis. The mean gradient of the aortic valve is 20 mmHg. There is mild mitral regurgitation. There is no evidence of mitral stenosis. There is mild to moderate tricuspid regurgitation. Unable to estimate the right ventricular systolic pressure. There is no significant pericardial effusion. There are no significant changes when compared to the previous study done on 12/03/17 Measurements Name Value Normal Range RVIDd (AP) 2D 3.3 cm (0.9 - 2.6) RVDdMajor (2D) 3.2 cm (2.2 - 4.4) RAd ISD 4CH 5.5 cm (3.4 - 4.9) RA (A4C)W 4.4 cm (2.9 - 4.6) IVSd (2D) 1.2 cm (0.6 - 1) LVPWd (2D) 1.2 cm (0.6 - 1) LVIDd (2D) 3.9 cm (3.6 - 5.4) LVIDs (2D) 2.1 cm - LV FS (2D) 46 % (25 - 45) Aortic Annulus 1.9 cm (1.4 - 2.6) Ao root diameter (2D) 3.1 cm (2.1 - 3.5) Ascending Ao 3 cm (2.1 - 3.4) LA dimension (AP) 2D 3.5 cm (2.3 - 3.8) LAd ISD 4CH 5.8 cm (2.9 - 5.3) LA ISD 4CH W 4.3 cm (2.5 - 4.5) Name Value Normal Range LA ESV SP 4CH (A/L) 52 ml - LA ESV SP 2CH (A/L) 62 ml - LA ESV BP (A/L) 57 ml - LA ESV BP (A/L) index 29.1 ml/m2 - LA ESV SP 4CH (MOD) 49 ml - LA ESV SP 2CH (MOD) 59 ml - Name Value Normal Range MV E-wave Vmax 1.4 m/sec - MV deceleration time 172 msec - MV A-wave Vmax 0.83 m/sec - MV E:A ratio 1.7 ratio - LV septal e' Vmax 0.07 m/sec - LV lateral e' Vmax 0.16 m/sec - LV E:e' septal ratio 20 ratio - LV E:e' lateral ratio 8.27 ratio - Name Value Normal Range AV Vmax 3.1 m/sec - AV VTI 60.7 cm - AV peak gradient 38 mmHg - AV mean gradient 20 mmHg - LVOT diameter 2 cm - LVOT Vmax 1.3 m/sec - LVOT VTI 24.5 cm - LVOT peak gradient 7 mmHg - LVOT mean gradient 3 mmHg - DOI (VTI) 0.4 ratio - DOI (Vmax) 0.42 ratio - EDIL (continuity Vmax) 1.3 cm2 - EDIL (continuity VTI) 1.3 cm2 - Name Value Normal Range IVC diameter 2.2 cm - Name Value Normal Range PV Vmax 0.87 m/sec -
[2018-10-02] MEDS: Ciprofloxacin 400MG IVPREMIX(* 400 MG/200 ML BAG IVPB SCH ×2 (00:55→11:32)
[2018-10-02] MEDS: Diltiazem TAB* 30 MG PO SCH ×3 (00:58→11:31)
[2018-10-02] MEDS: Albuterol/Ipratropium NEB.SOL* Albuterol 2.5 MG/Ipratropium 0.5 MG 3 ML INH SCH ×4 (01:08→20:54)
[2018-10-02] MEDS: Heparin VIAL(*) 5000 UNITS/ML VIAL (FIVE THOUSAND) SUBCUT SCH ×3 (05:52→22:37)
[2018-10-02 06:22] LABS: ABS Basophils 0 10^3/ul (0-0.2); ABS Eosinophils 0.1 10^3/ul (0-0.6); ABS Lymphocytes 0.8 10^3/ul (1.0-4.8); ABS Monocytes 0.8 10^3/ul (0-0.8); ABS Neutrophils 5.6 10^3/ul (1.5-7.7); ABS Nucleated RBC 0 10^3/ul; Eosinophil % 1.4 %; Hematocrit 32 % (35-47); Hemoglobin 10.7 g/dl (12.0-16.0); Lymphocyte % 11.1 %; Mean Corpuscular HGB Conc 34 g/dl (31-36); Mean Corpuscular Hemoglobin 31 pg (27-31); Mean Corpuscular Volume 91 fL (80-97); Mean Platelet Volume 8.8 fL (7.4-10.4); Nucleated Red Blood Cells % 0; Platelet Count 177 10^3/ul (150-450); Red Cell Distribution Width 13 % (10.5-15); White Blood Count 7.3 10^3/ul (3.5-10.8)
[2018-10-02 07:13] LABS: EGFR Non-African American 110.9 (>60)
[2018-10-02] MEDS: Mometasone/Formoter 200/5 MDI INH SCH ×2 (07:54→20:54)
[2018-10-02] MEDS: Clopidogrel TAB* 75 MG PO SCH (09:19)
[2018-10-02] MEDS: metroNIDAZOLE IV 500 MG/100ML* 500 MG/100 ML BAG IVPB SCH ×3 (09:19→22:50)
[2018-10-02] MEDS: Montelukast Sodium TAB* 10 MG PO SCH (09:19)
[2018-10-02] MEDS: Metoprolol Succinate XL TAB* 25 MG PO SCH (09:19)
[2018-10-02] MEDS: Pantoprazole IV* 40 MG IV SCH (09:20)
[2018-10-02] MEDS: Aspirin EC TAB* 81 MG TAB.EC PO SCH (09:20)
--- NOTE | 2018-10-02 17:06 | PN ---
Subjective Date of Service: 10/02/18 Interval History: Pt feels much better. Passed flatus last night. SOB improved Objective Active Medications: Albuterol/Ipratropium (Duoneb (Albuterol 2.5 Mg/Ipratropium 0.5 Mg)) 1 neb INH [id number] AWAKE [facility] Last Admin: 10/02/18 13:33 Dose: 1 neb Aspirin (Aspirin Ec Tab*) 81 mg PO DAILY [facility] Last Admin: 10/02/18 09:20 Dose: 81 mg Clopidogrel Bisulfate (Plavix Tab*) 75 mg PO DAILY [facility] Last Admin: 10/02/18 09:19 Dose: 75 mg Diltiazem HCl (Cardizem Tab*) 30 mg PO Q6HR [facility] Last Admin: 10/02/18 11:31 Dose: 30 mg Heparin Sodium (Porcine) (Heparin Vial(*)) 5,000 units SUBCUT Q8HR [facility] Last Admin: 10/02/18 13:56 Dose: 5,000 units Morphine Sulfate (Morphine Facsimile Machine Operator Adult* 5 Mg/Ml) 30 mls @ 0 mls/hr [employer] WORKER .change Q24H [facility]; Protocol Last Admin: 10/01/18 03:13 Dose: 1 mls/hr Ciprofloxacin/Dextrose (Cipro 400 Mg Ivpremix(*)) 400 mg in 200 mls @ 200 mls/ hr IVPB 0000,1200 [facility] Last Admin: 10/02/18 11:32 Dose: 200 mls/hr Metronidazole/Sodium Chloride (Flagyl 500 Mg Ivpb*) 500 mg in 100 mls @ 100 mls /hr IVPB 0730,1530,2330 [facility] Last Admin: 10/02/18 15:24 Dose: 100 mls/hr Lorazepam (Ativan Inj*) 0.5 mg IV PUSH Q6H PRN PRN Reason: ANXIETY Last Admin: 10/01/18 00:57 Dose: 0.5 mg Metoprolol Succinate (Toprol Xl Tab*) 25 mg PO DAILY [facility] Last Admin: 10/02/18 09:19 Dose: 25 mg Mometasone Furoate/Formoterol Fumar (Dulera 200/5 Mdi*) 2 puff INH BID [facility] Last Admin: 10/02/18 07:54 Dose: 2 puff Montelukast Sodium (Singulair Tab*) 10 mg PO DAILY [facility] Last Admin: 10/02/18 09:19 Dose: 10 mg Naloxone HCl (Narcan*) 0.08 mg IV PUSH .Q2MIN PRN PRN Reason: OVERSEDATION Pantoprazole Sodium (Protonix Iv*) 40 mg IV DAILY [facility] Last Admin: 10/02/18 09:20 Dose: 40 mg Vital Signs - 8 hr 10/02/18 10/02/18 10/02/18 09:30 10:00 10:01 Temperature Pulse Rate 93 90 96 Respiratory 18 18 23 Rate Blood Pressure 134/78 149/80 (mmHg) O2 Sat by Pulse 96 94 86 Oximetry 10/02/18 10/02/18 10/02/18 10:32 11:00 11:01 Temperature Pulse Rate 97 94 91 Respiratory 28 21 17 Rate Blood Pressure 141/78 133/81 (mmHg) O2 Sat by Pulse 91 91 94 Oximetry 10/02/18 10/02/18 10/02/18 11:31 11:44 12:00 Temperature 97.9 F Pulse Rate 96 95 Respiratory 24 24 Rate Blood Pressure 92/60 154/91 (mmHg) O2 Sat by Pulse 93 93 Oximetry 10/02/18 10/02/18 10/02/18 12:01 12:20 12:31 Temperature Pulse Rate 94 97 Respiratory 25 14 23 Rate Blood Pressure 124/78 (mmHg) O2 Sat by Pulse 95 92 Oximetry 10/02/18 10/02/18 10/02/18 13:00 13:01 13:30 Temperature Pulse Rate 76 88 83 Respiratory 20 29 18 Rate Blood Pressure 129/79 129/76 (mmHg) O2 Sat by Pulse 95 97 96 Oximetry 10/02/18 10/02/18 10/02/18 13:36 14:00 14:01 Temperature Pulse Rate 89 95 91 Respiratory 16 16 23 Rate Blood Pressure 118/71 (mmHg) O2 Sat by Pulse 100 92 94 Oximetry 10/02/18 10/02/18 10/02/18 14:31 14:58 15:00 Temperature Pulse Rate 98 97 Respiratory 21 14 17 Rate Blood Pressure 129/74 118/65 (mmHg) O2 Sat by Pulse 91 88 Oximetry 10/02/18 10/02/18 15:01 15:24 Temperature Pulse Rate 99 Respiratory 24 18 Rate Blood Pressure (mmHg) O2 Sat by Pulse 95 Oximetry Oxygen Devices in Use Now: Nasal Cannula Appearance: 63 yo f in nAD, aAOx3 Eyes: No Scleral Icterus, PERRLA Ears/Nose/Mouth/Throat: NL Teeth, Lips, Gums, Mucous Membranes Moist Neck: NL Appearance and Movements; NL JVP, Trachea Midline Respiratory: Symmetrical Chest Expansion and Respiratory Effort, - - rhonchi at b/l bases Cardiovascular: NL Sounds; No Murmurs; No JVD, RRR Abdominal: - - mild distention, midline abd incision stapled, no dehiscence, SID in place Extremities: No Clubbing, Cyanosis, - - trace pedal edema b/l Skin: No Nodules or Sclerosis, - - ecchymoses on upper back noted Neurological: Alert and Oriented x 3, NL Muscle Strength and Tone Result Diagrams: 10/02/18 05:45 10/02/18 05:45 Additional Lab and Data: Laboratory Results - last 24 hr 09/28/18 09/28/18 09/28/18 19:13 19:13 19:13 WBC 11.9 H RBC 4.09 Hgb 12.3 Hct 37 MCV 91 MCH 30 MCHC 33 RDW 13 Plt Count 202 MPV 8.5 Neut % (Auto) 81.9 Lymph % (Auto) 7.6 Saline % (Auto) 9.6 Eos % (Auto) 0.7 Baso % (Auto) 0.2 Absolute Neuts (auto) 9.8 H Absolute Lymphs (auto) 0.9 L Absolute Monos (auto) 1.1 H Absolute Eos (auto) 0.1 Absolute Basos (auto) 0 Absolute Nucleated RBC 0 Nucleated RBC % 0 INR (Anticoag Therapy) 0.97 Sodium 132 L Potassium 4.6 Chloride 97 L Carbon Dioxide 30 Anion Gap 5 BUN 19 Creatinine 1.21 H Est GFR ( Amer) 54.0 Est GFR (Non-Af Amer) 44.7 BUN/Creatinine Ratio 15.7 Glucose 101 H Lactic Acid Calcium 9.3 Total Bilirubin 0.60 AST 54 H ALT 34 Alkaline Phosphatase 52 Total Creatine Kinase 2691 H Troponin I 0.01 Total Protein 6.8 Albumin 4.1 Globulin 2.7 Albumin/Globulin Ratio 1.5 Urine Color Urine Appearance Urine pH Ur Specific [place] Urine Protein Urine Ketones Urine Blood Urine Nitrate Urine Bilirubin Urine Urobilinogen Ur Leukocyte Esterase Urine WBC (Auto) Urine RBC (Auto) Ur Squamous Epith Cells Urine Bacteria Urine Glucose Salicylates < 2.50 Urine Opiates Screen Acetaminophen < 15 Ur Barbiturates Screen Ur Phencyclidine Scrn Ur Amphetamines Screen U Benzodiazepines Scrn Urine Cocaine Screen U Cannabinoids Screen Serum Alcohol < 10 09/28/18 09/29/18 09/29/18 19:13 06:15 06:15 WBC RBC Hgb Hct MCV MCH MCHC RDW Plt Count MPV Neut % (Auto) Lymph % (Auto) Saline % (Auto) Eos % (Auto) Baso % (Auto) Absolute Neuts (auto) Absolute Lymphs (auto) Absolute Monos (auto) Absolute Eos (auto) Absolute Basos (auto) Absolute Nucleated RBC Nucleated RBC % INR (Anticoag Therapy) Sodium Potassium Chloride Carbon Dioxide Anion Gap BUN Creatinine Est GFR ( Amer) Est GFR (Non-Af Amer) BUN/Creatinine Ratio Glucose Lactic Acid 0.5 Calcium Total Bilirubin AST ALT Alkaline Phosphatase Total Creatine Kinase Troponin I Total Protein Albumin Globulin Albumin/Globulin Ratio Urine Color Straw Urine Appearance Clear Urine pH 6.0 Ur Specific [place] 1.005 L Urine Protein Negative Urine Ketones Negative Urine Blood Negative Urine Nitrate Negative Urine Bilirubin Negative Urine Urobilinogen Negative Ur Leukocyte Esterase 3+ A Urine WBC (Auto) 3+(>20/hpf) A Urine RBC (Auto) Trace(0-2/hpf) Ur Squamous Epith Cells Present A Urine Bacteria 1+ A Urine Glucose Negative Salicylates Urine Opiates Screen Presumptive positive A Acetaminophen Ur Barbiturates Screen None detected Ur Phencyclidine Scrn None detected Ur Amphetamines Screen None detected U Benzodiazepines Scrn Presumptive positive A Urine Cocaine Screen None detected U Cannabinoids Screen None detected Serum Alcohol 09/29/18 09/29/18 06:49 06:49 WBC 9.1 RBC 3.87 L Hgb 11.8 L Hct 35 MCV 92 MCH 31 MCHC 33 RDW 13 Plt Count 192 MPV 8.5 Neut % (Auto) 66.4 Lymph % (Auto) 18.5 Saline % (Auto) 13.3 Eos % (Auto) 1.6 Baso % (Auto) 0.2 Absolute Neuts (auto) 6.1 Absolute Lymphs (auto) 1.7 Absolute Monos (auto) 1.2 H Absolute Eos (auto) 0.1 Absolute Basos (auto) 0 Absolute Nucleated RBC 0 Nucleated RBC % 0.1 INR (Anticoag Therapy) Sodium 139 Potassium 3.9 Chloride 104 Carbon Dioxide 28 Anion Gap 7 BUN 15 Creatinine 0.83 Est GFR ( Amer) 83.5 Est GFR (Non-Af Amer) 69.0 BUN/Creatinine Ratio 18.1 Glucose 98 Lactic Acid Calcium 8.8 Total Bilirubin AST ALT Alkaline Phosphatase Total Creatine Kinase 8017 H Troponin I Total Protein Albumin Globulin Albumin/Globulin Ratio Urine Color Urine Appearance Urine pH Ur Specific [place] Urine Protein Urine Ketones Urine Blood Urine Nitrate Urine Bilirubin Urine Urobilinogen Ur Leukocyte Esterase Urine WBC (Auto) Urine RBC (Auto) Ur Squamous Epith Cells Urine Bacteria Urine Glucose Salicylates Urine Opiates Screen Acetaminophen Ur Barbiturates Screen Ur Phencyclidine Scrn Ur Amphetamines Screen U Benzodiazepines Scrn Urine Cocaine Screen U Cannabinoids Screen Serum Alcohol Microbiology and Other Data: Microbiology 09/29/18 06:15 Urine Culture - Final Urine Assess/Plan/Problems-Billing Assessment: 63 yo female PMH COPD with chronic hypoxic respiratory failure(2L), CAD with stent Nov 2017 (asa/plavix), vasculopath with b/l fem pop, celiac/SMA stents and bowel resection, frequent UTIs p/w AMS, inability to stand up from floor ( not sure how she got there), mild rhabdo. Left epigastric abdominal tenderness and erythema with CT abd/pelvis noncontrast e/o hernia with bowel and inflammatory changes. s/p Ex-lap with Dr. Earl 09/29 with removal of incarcerated large bowel diverticula. Sepsis (AMS, SBP <100, leukocytosis). BOBBY (resolved) - Patient Problems (1) Atrial fibrillation with rapid ventricular response Comment: transient , on 10/01/18, less then 12 H. Convereted on Cardizem gtt. cont Cardizem IR, cont Toprol XL, start Cardizem CD in aM (2) Pulmonary edema Comment: Acute, IVF used to tx rhabdo likley contributed will tx with Lasix 20 mg IV today. (3) Incarcerated hernia Comment: Appreciate surgery assistance. cont cipro flagyl given suspected etiology is likely intra-abdominal. got 1 dose of zosyn prior to surgery on clears(defer to surgery) (4) BOBBY (acute kidney injury) Comment: resolved, in setting of sepsis, rhabdo. (5) Chronic respiratory failure with hypoxia Comment: secondary to COPD. (6) Rhabdomyolysis Comment: resolving in setting of ?fall and bruise on right scapula (7) Sepsis Comment: likely 2/2 incarcerated hernia resolved AMS. improved BP. resolved leukocytosis empiric abx switched to cipro/flagyl from levaquin. (8) Altered mental status Comment: frankly unclear history but presumed from sepsis/incarcerated hernia vs ?UTI(hx of)-encephalopathy due to sepsis resolved. (9) PVD (peripheral vascular disease) Comment: continue aspirin, restarted plavix on 10/01 statin (10) DVT prophylaxis Comment: hep subq Status and Disposition: inpatient
[2018-10-02] MEDS ORDERED: KCL 20 MEQ/100 ML IVPREMIX* 20 MEQ/100 ML BAG IV ONE (17:10)
[2018-10-02] MEDS ORDERED: Furosemide IV* 10 MG/ML 2 ML VIAL (20 MG) IV ONE (17:10)
--- NOTE | 2018-10-02 17:52 | PN ---
Progress Note - Progress Note Date of Service: 10/02/18 SOAP: Subjective: Pt seen and examined. Feeling better today. Positive flatus, no BM, no nausea Objective: Temp Pulse Resp BP Pulse Ox 98.7 F 99 16 145/63 93 10/02/18 16:40 10/02/18 16:40 10/02/18 17:22 10/02/18 16:40 10/02/18 17:16 a and o x3, nad abdo: soft/ mild distension, tender; no rebound dressing intact SID serous Pat reviewed Assessment: POD 3 ventral hernia repair with resection of portion LB Plan: advance diet OOB pain control pulm toilet
[2018-10-02] MEDS: Diltiazem TAB* 60 MG PO SCH (18:06)
[2018-10-02] MEDS: Atorvastatin* 40 MG TAB PO SCH (22:35)
[2018-10-03] MEDS: Diltiazem TAB* 60 MG PO SCH (00:49)
[2018-10-03] MEDS: Ciprofloxacin 400MG IVPREMIX(* 400 MG/200 ML BAG IVPB SCH ×2 (00:50→14:40)
[2018-10-03] MEDS: Albuterol/Ipratropium NEB.SOL* Albuterol 2.5 MG/Ipratropium 0.5 MG 3 ML INH SCH ×4 (02:12→19:29)
[2018-10-03 05:27] LABS: Hematocrit 34 % (35-47); Hemoglobin 11.4 g/dl (12.0-16.0); Mean Corpuscular HGB Conc 33 g/dl (31-36); Mean Corpuscular Hemoglobin 30 pg (27-31); Mean Corpuscular Volume 91 fL (80-97); Mean Platelet Volume 8.2 fL (7.4-10.4); Platelet Count 215 10^3/ul (150-450); Red Blood Count 3.75 10^6/ul (4.00-5.40); Red Cell Distribution Width 13 % (10.5-15); White Blood Count 7.2 10^3/ul (3.5-10.8)
[2018-10-03 05:43] LABS: EGFR Non-African American 102.3 (>60)
[2018-10-03] MEDS: Heparin VIAL(*) 5000 UNITS/ML VIAL (FIVE THOUSAND) SUBCUT SCH ×3 (05:49→21:27)
[2018-10-03] MEDS: Levothyroxine TAB* 75 MCG TAB PO SCH (05:52)
[2018-10-03] MEDS: metroNIDAZOLE IV 500 MG/100ML* 500 MG/100 ML BAG IVPB SCH ×2 (07:41→17:52)
[2018-10-03] MEDS: Mometasone/Formoter 200/5 MDI INH SCH ×2 (08:25→19:29)
[2018-10-03] MEDS: Diltiazem CD CAP* 240 MG PO SCH (08:55)
[2018-10-03] MEDS: Aspirin EC TAB* 81 MG TAB.EC PO SCH (08:55)
[2018-10-03] MEDS: Montelukast Sodium TAB* 10 MG PO SCH (08:55)
[2018-10-03] MEDS: Clopidogrel TAB* 75 MG PO SCH (08:55)
[2018-10-03] MEDS: Metoprolol Succinate XL TAB* 25 MG PO SCH (08:55)
[2018-10-03] MEDS: Pantoprazole IV* 40 MG IV SCH (08:55)
[2018-10-03] MEDS ORDERED: KCL 20 MEQ/100 ML IVPREMIX* 20 MEQ/100 ML BAG IV ONE (09:00)
[2018-10-03] MEDS ORDERED: Morphine VIAL* 4 MG/ML VIAL (1 ml vial) IV PRN (10:22)
--- NOTE | 2018-10-03 12:30 | PN ---
Subjective Date of Service: 10/03/18 Interval History: Pt feels well, passing flatus, but no BM, on clears. Denies SOB Objective Active Medications: Albuterol/Ipratropium (Duoneb (Albuterol 2.5 Mg/Ipratropium 0.5 Mg)) 1 neb INH [id number] AWAKE [facility] Last Admin: 10/03/18 08:22 Dose: 1 neb Aspirin (Aspirin Ec Tab*) 81 mg PO DAILY [facility] Last Admin: 10/03/18 08:55 Dose: 81 mg Atorvastatin Calcium (Lipitor*) 40 mg PO 2100 [facility] Last Admin: 10/02/18 22:35 Dose: 40 mg Clopidogrel Bisulfate (Plavix Tab*) 75 mg PO DAILY [facility] Last Admin: 10/03/18 08:55 Dose: 75 mg Diltiazem HCl (Cardizem Cd Cap*) 240 mg PO DAILY [facility] Last Admin: 10/03/18 08:55 Dose: 240 mg Heparin Sodium (Porcine) (Heparin Vial(*)) 5,000 units SUBCUT Q8HR [facility] Last Admin: 10/03/18 05:49 Dose: 5,000 units Ciprofloxacin/Dextrose (Cipro 400 Mg Ivpremix(*)) 400 mg in 200 mls @ 200 mls/ hr IVPB 0000,1200 [facility] Last Admin: 10/03/18 00:50 Dose: 200 mls/hr Metronidazole/Sodium Chloride (Flagyl 500 Mg Ivpb*) 500 mg in 100 mls @ 100 mls /hr IVPB 0730,1530,2330 [facility] Last Admin: 10/03/18 07:41 Dose: 100 mls/hr Levothyroxine Sodium (Synthroid Tab*) 75 mcg PO DAILY@0600 [facility] Last Admin: 10/03/18 05:52 Dose: 75 mcg Lorazepam (Ativan Inj*) 0.5 mg IV PUSH Q6H PRN PRN Reason: ANXIETY Last Admin: 10/01/18 00:57 Dose: 0.5 mg Metoprolol Succinate (Toprol Xl Tab*) 25 mg PO DAILY [facility] Last Admin: 10/03/18 08:55 Dose: 25 mg Mometasone Furoate/Formoterol Fumar (Dulera 200/5 Mdi*) 2 puff INH BID [facility] Last Admin: 10/03/18 08:25 Dose: 2 puff Montelukast Sodium (Singulair Tab*) 10 mg PO DAILY [facility] Last Admin: 10/03/18 08:55 Dose: 10 mg Morphine Sulfate (Morphine Vial*) 1 mg IV Q2H PRN PRN Reason: PAIN Naloxone HCl (Narcan*) 0.08 mg IV PUSH .Q2MIN PRN PRN Reason: OVERSEDATION Oxycodone/Acetaminophen (Percocet 5/325 Tab*) 1 tab PO Q4H PRN PRN Reason: PAIN Pantoprazole Sodium (Protonix Iv*) 40 mg IV DAILY [facility] Last Admin: 10/03/18 08:55 Dose: 40 mg Vital Signs - 8 hr 10/03/18 10/03/18 10/03/18 06:00 07:48 07:49 Temperature 98.3 F Pulse Rate 58 Respiratory 16 18 16 Rate Blood Pressure 108/63 (mmHg) O2 Sat by Pulse 92 96 94 Oximetry 10/03/18 10/03/18 08:25 10:00 Temperature Pulse Rate 85 Respiratory 16 19 Rate Blood Pressure (mmHg) O2 Sat by Pulse 98 93 Oximetry Oxygen Devices in Use Now: Nasal Cannula Appearance: 63 yo F in NAD, aAOx3 Eyes: No Scleral Icterus, PERRLA Ears/Nose/Mouth/Throat: NL Teeth, Lips, Gums, Mucous Membranes Moist Neck: NL Appearance and Movements; NL JVP, Trachea Midline Respiratory: Symmetrical Chest Expansion and Respiratory Effort, - - crackles at b/l bases-scant Cardiovascular: NL Sounds; No Murmurs; No JVD Abdominal: No Hepatosplenomegaly, - - mildly distended, soft, NT BS+, mildine incision stapled, no dehiscance, no infection, BS+ Lymphatic: No Cervical Adenopathy Extremities: No Edema Skin: No Nodules or Sclerosis, - - ecchymosis on back Neurological: Alert and Oriented x 3, NL Muscle Strength and Tone Result Diagrams: 10/03/18 05:00 10/03/18 05:00 Additional Lab and Data: Laboratory Results - last 24 hr 09/28/18 09/28/18 09/28/18 19:13 19:13 19:13 WBC 11.9 H RBC 4.09 Hgb 12.3 Hct 37 MCV 91 MCH 30 MCHC 33 RDW 13 Plt Count 202 MPV 8.5 Neut % (Auto) 81.9 Lymph % (Auto) 7.6 [place] % (Auto) 9.6 Eos % (Auto) 0.7 Baso % (Auto) 0.2 Absolute Neuts (auto) 9.8 H Absolute Lymphs (auto) 0.9 L Absolute Monos (auto) 1.1 H Absolute Eos (auto) 0.1 Absolute Basos (auto) 0 Absolute Nucleated RBC 0 Nucleated RBC % 0 INR (Anticoag Therapy) 0.97 Sodium 132 L Potassium 4.6 Chloride 97 L Carbon Dioxide 30 Anion Gap 5 BUN 19 Creatinine 1.21 H Est GFR ( Amer) 54.0 Est GFR (Non-Af Amer) 44.7 BUN/Creatinine Ratio 15.7 Glucose 101 H Lactic Acid Calcium 9.3 Total Bilirubin 0.60 AST 54 H ALT 34 Alkaline Phosphatase 52 Total Creatine Kinase 2691 H Troponin I 0.01 Total Protein 6.8 Albumin 4.1 Globulin 2.7 Albumin/Globulin Ratio 1.5 Urine Color Urine Appearance Urine pH Ur Specific [place] Urine Protein Urine Ketones Urine Blood Urine Nitrate Urine Bilirubin Urine Urobilinogen Ur Leukocyte Esterase Urine WBC (Auto) Urine RBC (Auto) Ur Squamous Epith Cells Urine Bacteria Urine Glucose Salicylates < 2.50 Urine Opiates Screen Acetaminophen < 15 Ur Barbiturates Screen Ur Phencyclidine Scrn Ur Amphetamines Screen U Benzodiazepines Scrn Urine Cocaine Screen U Cannabinoids Screen Serum Alcohol < 10 09/28/18 09/29/18 09/29/18 19:13 06:15 06:15 WBC RBC Hgb Hct MCV MCH MCHC RDW Plt Count MPV Neut % (Auto) Lymph % (Auto) [place] % (Auto) Eos % (Auto) Baso % (Auto) Absolute Neuts (auto) Absolute Lymphs (auto) Absolute Monos (auto) Absolute Eos (auto) Absolute Basos (auto) Absolute Nucleated RBC Nucleated RBC % INR (Anticoag Therapy) Sodium Potassium Chloride Carbon Dioxide Anion Gap BUN Creatinine Est GFR ( Amer) Est GFR (Non-Af Amer) BUN/Creatinine Ratio Glucose Lactic Acid 0.5 Calcium Total Bilirubin AST ALT Alkaline Phosphatase Total Creatine Kinase Troponin I Total Protein Albumin Globulin Albumin/Globulin Ratio Urine Color Straw Urine Appearance Clear Urine pH 6.0 Ur Specific [place] 1.005 L Urine Protein Negative Urine Ketones Negative Urine Blood Negative Urine Nitrate Negative Urine Bilirubin Negative Urine Urobilinogen Negative Ur Leukocyte Esterase 3+ A Urine WBC (Auto) 3+(>20/hpf) A Urine RBC (Auto) Trace(0-2/hpf) Ur Squamous Epith Cells Present A Urine Bacteria 1+ A Urine Glucose Negative Salicylates Urine Opiates Screen Presumptive positive A Acetaminophen Ur Barbiturates Screen None detected Ur Phencyclidine Scrn None detected Ur Amphetamines Screen None detected U Benzodiazepines Scrn Presumptive positive A Urine Cocaine Screen None detected U Cannabinoids Screen None detected Serum Alcohol 09/29/18 09/29/18 06:49 06:49 WBC 9.1 RBC 3.87 L Hgb 11.8 L Hct 35 MCV 92 MCH 31 MCHC 33 RDW 13 Plt Count 192 MPV 8.5 Neut % (Auto) 66.4 Lymph % (Auto) 18.5 [place] % (Auto) 13.3 Eos % (Auto) 1.6 Baso % (Auto) 0.2 Absolute Neuts (auto) 6.1 Absolute Lymphs (auto) 1.7 Absolute Monos (auto) 1.2 H Absolute Eos (auto) 0.1 Absolute Basos (auto) 0 Absolute Nucleated RBC 0 Nucleated RBC % 0.1 INR (Anticoag Therapy) Sodium 139 Potassium 3.9 Chloride 104 Carbon Dioxide 28 Anion Gap 7 BUN 15 Creatinine 0.83 Est GFR ( Amer) 83.5 Est GFR (Non-Af Amer) 69.0 BUN/Creatinine Ratio 18.1 Glucose 98 Lactic Acid Calcium 8.8 Total Bilirubin AST ALT Alkaline Phosphatase Total Creatine Kinase 8017 H Troponin I Total Protein Albumin Globulin Albumin/Globulin Ratio Urine Color Urine Appearance Urine pH Ur Specific [place] Urine Protein Urine Ketones Urine Blood Urine Nitrate Urine Bilirubin Urine Urobilinogen Ur Leukocyte Esterase Urine WBC (Auto) Urine RBC (Auto) Ur Squamous Epith Cells Urine Bacteria Urine Glucose Salicylates Urine Opiates Screen Acetaminophen Ur Barbiturates Screen Ur Phencyclidine Scrn Ur Amphetamines Screen U Benzodiazepines Scrn Urine Cocaine Screen U Cannabinoids Screen Serum Alcohol Microbiology and Other Data: Microbiology 09/29/18 06:15 Urine Culture - Final Urine Assess/Plan/Problems-Billing Assessment: 63 yo female PMH COPD with chronic hypoxic respiratory failure(2L), CAD with stent Nov 2017 (asa/plavix), vasculopath with b/l fem pop, celiac/SMA stents and bowel resection, frequent UTIs p/w AMS, inability to stand up from floor ( not sure how she got there), mild rhabdo. Left epigastric abdominal tenderness and erythema with CT abd/pelvis noncontrast e/o hernia with bowel and inflammatory changes. s/p Ex-lap with Dr. Earl 09/29 with removal of incarcerated large bowel diverticula. Sepsis (AMS, SBP <100, leukocytosis). BOBBY (resolved) - Patient Problems (1) Atrial fibrillation with rapid ventricular response Comment: transient , on 10/01/18, less then 12 H. Convereted on Cardizem gtt. cont Cardizem CD for now (2) Pulmonary edema Comment: Acute, IVF used to tx rhabdo jenniferley contributed appears euvolemic today (3) Incarcerated hernia Comment: Appreciate surgery assistance. cont cipro flagyl given suspected etiology is likely intra-abdominal. 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 (5) Chronic respiratory failure with hypoxia Comment: secondary to COPD. On 2 L 02 at home (6) Rhabdomyolysis Comment: resolving in setting of ?fall and bruise on right scapula (7) Sepsis Comment: likely 2/2 incarcerated hernia resolved AMS. improved BP. resolved leukocytosis empiric abx switched to cipro/flagyl from levaquin. (8) Altered mental status Comment: frankly unclear history but presumed from sepsis/incarcerated hernia vs ?UTI(hx of)-encephalopathy due to sepsis resolved. (9) PVD (peripheral vascular disease) Comment: continue aspirin, restarted plavix on 10/01 statin (10) DVT prophylaxis Comment: hep subq Status and Disposition: inpatient
--- NOTE | 2018-10-03 16:38 | PN ---
Progress Note - Progress Note Date of Service: 10/03/18 SOAP: Subjective: Pt seen earlier in day. Feels well. No nausea, pos flatus and Bm Objective: Temp Pulse Resp BP Pulse Ox 98.1 F 91 16 132/76 95 10/03/18 11:11 10/03/18 13:46 10/03/18 13:46 10/03/18 11:11 10/03/18 13:46 a and oix3, nad abdo: soft/ ND/ tender at incision dressing removed. Staple line intact; no redness Sid serous ext wnl path reviewed Assessment: s/p ex lap, hernia repair Plan: advnace diet d/c planning SID out tomorrow
[2018-10-03] MEDS: Atorvastatin* 40 MG TAB PO SCH (21:26)
[2018-10-04] MEDS: Ciprofloxacin 400MG IVPREMIX(* 400 MG/200 ML BAG IVPB SCH (01:20)
[2018-10-04] MEDS: Albuterol/Ipratropium NEB.SOL* Albuterol 2.5 MG/Ipratropium 0.5 MG 3 ML INH SCH ×2 (02:00→07:36)
[2018-10-04] MEDS: metroNIDAZOLE IV 500 MG/100ML* 500 MG/100 ML BAG IVPB SCH ×2 (02:46→10:24)
[2018-10-04 05:46] LABS: EGFR Non-African American 106.4 (>60)
[2018-10-04] MEDS: Heparin VIAL(*) 5000 UNITS/ML VIAL (FIVE THOUSAND) SUBCUT SCH ×3 (06:21→21:39)
[2018-10-04] MEDS: Levothyroxine TAB* 75 MCG TAB PO SCH (06:21)
[2018-10-04] MEDS: Mometasone/Formoter 200/5 MDI INH SCH ×2 (07:36→20:29)
[2018-10-04] MEDS: Pantoprazole IV* 40 MG IV SCH (07:50)
[2018-10-04] MEDS: Montelukast Sodium TAB* 10 MG PO SCH (07:50)
[2018-10-04] MEDS: Clopidogrel TAB* 75 MG PO SCH (07:50)
[2018-10-04] MEDS: Aspirin EC TAB* 81 MG TAB.EC PO SCH (07:50)
[2018-10-04] MEDS: Metoprolol Succinate XL TAB* 25 MG PO SCH (07:50)
[2018-10-04] MEDS: Diltiazem CD CAP* 240 MG PO SCH (07:50)
[2018-10-04] MEDS: oxyCODONE/Acetamin 5/325 MG* TAB PO PRN ×3 (07:57→20:52)
[2018-10-04] MEDS ORDERED: Albuterol/Ipratropium NEB.SOL* Albuterol 2.5 MG/Ipratropium 0.5 MG 3 ML INH PRN (09:36)
[2018-10-04] MEDS: Magnesium Oxide TAB* 400 MG PO SCH (10:23)
--- NOTE | 2018-10-04 10:47 | PN ---
Progress Note - Progress Note Date of Service: 10/04/18 SOAP: Subjective: Pt seen and examined. Feeling well. NO BM, positive flatus;' no nausea. Less pain Objective: Temp Pulse Resp BP Pulse Ox 98.8 F 72 16 125/68 99 10/04/18 07:31 10/04/18 07:37 10/04/18 10:24 10/04/18 07:31 10/04/18 08:00 a and o x3, nad abdo: soft/ ND/ incisioanl tenderness SID serous- removed today ext wnl Assessment: s/p ventrla hernia repair Plan: d/c abx advance diet abdo binder okay for D/C home
[2018-10-04] MEDS ORDERED: Potassium Phosphate IV* 15 MMOLE in NS 0.9% 250 ML* 250 ML IVPB ONE (11:15)
[2018-10-04] MEDS ORDERED: NS 0.9% 250 ML* 250 ML ONE (12:20)
[2018-10-04] MEDS: LORazepam INJ* 2 MG/ML 1 ML VIAL IV PUSH PRN (17:12)
[2018-10-04] MEDS: Atorvastatin* 40 MG TAB PO SCH (20:52)
--- NOTE | 2018-10-05 01:37 | DS ---
CC: Dr. Earl; Dr. Parmar * MEDICINE DISCHARGE SUMMARY: DATE OF ADMISSION: 09/28/18 DATE OF ANTICIPATED DISCHARGE: That is going to be performed by surgical service on 10/04/18. DATE OF TODAY'S EVALUATION: 10/03/18 DISCHARGE DIAGNOSES: 1. Incarcerated abdominal/ventral hernia, status post exploratory laparotomy performed by Dr. Earl on 09/29/18 with lysis of adhesions and excision of portion of small bowel and closure of the abdomen. 2. Acute kidney injury due to sepsis secondary to incarcerated hernia that resolved. 3. Acute pulmonary edema and resultant acute hypoxemic respiratory failure likely due to diastolic CHF and fluid overload that resolved. The patient also during that time had an episode of atrial fibrillation that lasted approximately 10 hours and converted to sinus rhythm pharmacologically on Cardizem drip. Post patient's ICU stay, she did very well with diuresis and her atrial fibrillation did not recur. At that point, the decision was made not to place the patient on chronic anticoagulation due to short postop episode of the AFib. MEDICATIONS AT DISCHARGE: Include at this point: 1. Albuterol inhaler on a p.r.n. basis. 2. Xanax 0.25 mg every 6 hours p.r.n. 3. Lipitor 40 mg daily. 4. Symbicort 160/4.5 two inhalation b.i.d. 5. Plavix 75 mg daily. 6. Flexeril 10 mg t.i.d. p.r.n. 7. Synthroid 75 mcg daily. 8. Mirabegron 50 mg at bedtime. 9. Singulair 10 mg daily. 10. Oxycodone with acetaminophen 5/325 mg 1 tablet every 6 hours p.r.n. 11. Lyrica 50 mg 3 times a day. 12. Zoloft 200 mg daily. 13. Aspirin 81 mg daily. 14. Cardizem CD, which is a new medication, 240 mg daily that was prescribed to [facility]. 15. Mag-Ox 800 mg daily, new medication that is for the patient to be taken for the next 10 days and then stop. 16. Metoprolol succinate 25 mg daily, to be continued. 17. Nitroglycerin sublingual to be continued. 18. The patient's lisinopril was held at the time of discharge. PHYSICAL EXAMINATION: On 10/03/18, blood pressure of 121/77, heart rate of 93 and regular, respiratory rate 16, oxygen saturation 100% on 1 L of oxygen nasal cannula, temperature of 97.7. General: The patient is a pleasant 63-year-old female, who is in no acute distress. Alert, awake, and oriented x3. HEENT: Head atraumatic, normocephalic. Eyes: Pupils are equal and reactive to light and accommodation. Oropharynx clear. Mucosa moist. Neck: Supple. No JVD, no bruit bilaterally. Cardiovascular: Regular rate and rhythm. No murmur. Respiratory: Clear to auscultation bilaterally. Abdomen: Soft, nontender. Bowel sounds present in all 4 quadrants. Midline incision stapled with no evidence of dehiscence or drainage or erythema. Extremities: There is no edema. Pulses +2 bilaterally. No clubbing or cyanosis. On neuro evaluation, speech clear. Cranial nerves II through XII grossly intact. Motor strength is 5/5 bilaterally. On evaluation of the skin, midline incision was stapled as mentioned above. HOSPITALIZATION COURSE: Please note that the patient is planned to be discharged by surgical service day later on 10/04/18. This is an interim discharge summary performed by the medicine service. Shortly, the patient is a 63-year-old female with history of peripheral vascular disease and SMA stenosis as well as cardiac disease with history of cardiac stent in November 2017, who presented to the hospital after a fall on . The patient had encephalopathy likely due to sepsis that resolved during the patient's hospital stay. She was septic and further was found out that the sepsis was likely due to incarcerated ventral hernia and was operated on 09/29/18. There was a part of the large intestine that was removed noted to be necrotic. Postoperatively, the patient did very well. Please note that at admission, the patient was noted to have rhabdomyolysis and with CPK level of 8000 on 09/29/18. Due to that, she received generous intravenous hydration. On 10/01/18, the patient was noted to be in respiratory distress and atrial fibrillation with rapid ventricular response. She was diagnosed with acute pulmonary edema and acute hypoxemic respiratory failure due to that. She was placed on Cardizem drip and converted to sinus rhythm while in the intensive care unit. She was transferred out of the intensive care unit within 24 hours. Overall, the duration of her AFib was approximately 10 hours. The patient's TSH was checked and was 0.73. She did have mild electrolyte abnormalities including hypokalemia that was corrected as well as hypomagnesemia that was also corrected. In the remaining time of the patient's hospital stay, the patient's diet was slowly advanced to regular diet by the time of discharge. She was weaned off oxygen and by the time of discharge, she is on room air, although she still uses her oxygen as previously used at home at night at 2 L. Due to her episode of atrial fibrillation, she was placed on Cardizem CD as an add- on to her metoprolol with good results and remaining in sinus rhythm at that point. It was decided for the patient not to be on anticoagulation due to the atrial fibrillation episode to be briefed and likely related to electrolyte abnormalities and pulmonary edema. The patient's lisinopril was held since the patient's systolic pressures had been in the 120s on the above-mentioned 2 antihypertensives. The patient underwent physical therapy evaluation and was deemed to be a good candidate for short-term rehabilitation, but she refused. She is planning to spend the next few days with her daughter, who is planning to take patient home on 10/04/18. Please note that during this dictation, the patient is still receiving intravenous antibiotics that was started postoperatively and the remaining medications will be addressed by the surgical service and specifically Dr. Earl at the time of discharge planned on 10/04/18. Please note that this is a short summary of the patient's hospitalization. Please refer to further medical records for details. TIME SPENT: Approximately 35 minutes were spent on patient's discharge. [id number]/[facility] #: [id number] MTDD
[2018-10-05] MEDS: Levothyroxine TAB* 75 MCG TAB PO SCH (05:49)
[2018-10-05] MEDS: oxyCODONE/Acetamin 5/325 MG* TAB PO PRN ×2 (05:49→11:52)
[2018-10-05] MEDS: Heparin VIAL(*) 5000 UNITS/ML VIAL (FIVE THOUSAND) SUBCUT SCH (05:50)
[2018-10-05] MEDS: Metoprolol Succinate XL TAB* 25 MG PO SCH (09:19)
[2018-10-05] MEDS: Magnesium Oxide TAB* 400 MG PO SCH (09:19)
[2018-10-05] MEDS: Montelukast Sodium TAB* 10 MG PO SCH (09:19)
[2018-10-05] MEDS: Clopidogrel TAB* 75 MG PO SCH (09:19)
[2018-10-05] MEDS: Aspirin EC TAB* 81 MG TAB.EC PO SCH (09:19)
[2018-10-05] MEDS: Mometasone/Formoter 200/5 MDI INH SCH (09:19)
[2018-10-05] MEDS: Diltiazem CD CAP* 240 MG PO SCH (09:19)
[2018-10-05] MEDS: Pantoprazole IV* 40 MG IV SCH (09:20)
--- NOTE | 2018-10-05 11:05 | DS ---
AMENDED REPORT NOW INCLUDES DATE OF DISCHARGE CC: Dr. Miguel Parmar; [facility] DISCHARGE SUMMARY: DATE OF ADMISSION: DATE OF DISCHARGE: 10/05/18 HOSPITAL COURSE: Ms. Jiménez is a 63-year-old female who was admitted to the emergency room to my service with ventral hernia with incarceration, went to the operating room where she underwent an exploratory laparotomy, lysis of adhesions, and portion of large bowel resection that was consistent with an ischemic Davidson's type hernia. Patient underwent a primary closure and was transferred to the recovery room and onto the short stay surgical unit. In the postoperative period, patient had mild ileus that resolved. Diet was slowly advanced. She was followed by the hospitalist service, who assisted in her care. Pt went into episode of A fib and was transferred to telemetry on cardizem drip and then onto ICU. A fib resolved, and she was transferred back to surgical unit. By postoperative day 5, patient was advanced to regular diet. Overnight, she had a bowel movement and was ready for discharge. On day of discharge, physical exam was performed. Patient was afebrile. Vital signs are stable. Alert and oriented x3. No apparent distress. Head, Eyes, Ears, Nose, and Throat: Normocephalic, atraumatic. Sclerae anicteric. Mucous membranes are moist. Lungs: Clear to auscultation bilaterally. Abdomen: Soft , nondistended, tender at the incision. Staple line intact with no redness. SID drain had been out and that site appeared within normal limits. Rectal exam was not performed. Extremities within normal limits. Postoperative day 6 from exploratory laparotomy, portion of large bowel resection for a Meckel's type ischemic hernia. Patient is discharged to home with all her previous home medications. She will go home with an abdominal binder as well. Will follow up in the office and she has been given our number to call for an appointment next week. I discussed this with her and her family members. [id number]/[facility] #: [id number] FERMÍN
[2018-10-05 11:57] VITALS: BP 142/88
== END 2018-10-05 12:30 | disposition home or self-care (01) | DRG 853 ==
LOC: ED 18:27 → MED 20:51 → OBSVTOIN 09-29 13:00 → SSU 09-29 18:03 → MEDTELE 10-01 01:56 → ICU 10-01 13:23 → SSU 10-02 11:07
PROVIDERS: ADMIT Hospitalist; ATTEND Internal Medicine
PROC: 0WQF0ZZ Repair Abdominal Wall, Open Approach (ICD-10-PCS; 2018-09-29)
PROC: 0DNL0ZZ Release Transverse Colon, Open Approach (ICD-10-PCS; 2018-09-29)
PROC: 0DNU0ZZ Release Omentum, Open Approach (ICD-10-PCS; 2018-09-29)
PROC: 0DBN0ZZ Excision of Sigmoid Colon, Open Approach (ICD-10-PCS; principal; 2018-09-29 12:00)
PROC: 30233N1 Transfusion of Nonautologous Red Blood Cells into Peripheral Vein, Percutaneous Approach (ICD-10-PCS; 2018-09-30)
DX: A41.9 Sepsis, unspecified organism (principal); J96.21 Acute and chronic respiratory failure with hypoxia; I50.31 Acute diastolic (congestive) heart failure; K43.6 Other and unspecified ventral hernia with obstruction, without gangrene; N17.9 Acute kidney failure, unspecified; G93.40 Encephalopathy, unspecified; M62.82 Rhabdomyolysis; D62 Acute posthemorrhagic anemia; I48.91 Unspecified atrial fibrillation; I11.0 Hypertensive heart disease with heart failure; Z99.81 Dependence on supplemental oxygen; E83.42 Hypomagnesemia; J44.9 Chronic obstructive pulmonary disease, unspecified; K66.0 Peritoneal adhesions (postprocedural) (postinfection); I73.9 Peripheral vascular disease, unspecified; E87.6 Hypokalemia; I25.10 Atherosclerotic heart disease of native coronary artery without angina pectoris; G89.29 Other chronic pain; M46.92 Unspecified inflammatory spondylopathy, cervical region; M54.2 Cervicalgia; E03.9 Hypothyroidism, unspecified; F32.9 Major depressive disorder, single episode, unspecified; Z95.5 Presence of coronary angioplasty implant and graft; Z79.1 Long term (current) use of non-steroidal anti-inflammatories (NSAID); Z79.82 Long term (current) use of aspirin; Z79.891 Long term (current) use of opiate analgesic; Z79.899 Other long term (current) drug therapy; Z88.8 Allergy status to other drugs, medicaments and biological substances; Z79.02 Long term (current) use of antithrombotics/antiplatelets; Z87.891 Personal history of nicotine dependence
CPT/HCPCS: 36415; 70450; 71045; 74176; 80048; 80053; 80307; 80320; 80329; 81003; 81015; 82550; 83605; 83735; 84100; 84443; 84484; 85014; 85018; 85025; 85027; 85045; 85610; 86850; 86900; 86901; 86922; 87086; 88307; 93005; 93306; 94640; 99284; A9270-GY; G0480; G8978-GP-CL; G8979-GP-CI; G8980-GP-CK; G8987-GO-CL; G8988-GO-CI; J0744; J1100; J1160; J1170; J1644; J1885; J1940; J2060; J2250; J2270; J2405; J2543; J2704; J3010; J3475; J3480; J3490; P9016

== ENCOUNTER 2018-10-17 14:58 | Inpatient (IN) | payer MEDICARE ==
[2018-10-17] MEDS ORDERED: methylPREDNISolone 125 MG* 2 ML VIAL ONE (15:01)
[2018-10-17] MEDS ORDERED: Magnesium Sulfate 2 GM IV* 2 GM/50 ML BAG ONE (15:02)
[2018-10-17] MEDS ORDERED: Acetaminophen SUPP* 650 MG SUPP ONE (15:04)
[2018-10-17] MEDS ORDERED: methylPREDNISolone 125 MG* 2 ML VIAL IV ONE (15:06)
[2018-10-17] MEDS ORDERED: Albuterol/Ipratropium NEB.SOL* Albuterol 2.5 MG/Ipratropium 0.5 MG 3 ML ONE (15:06)
[2018-10-17] MEDS ORDERED: Albuterol/Ipratropium NEB.SOL* Albuterol 2.5 MG/Ipratropium 0.5 MG 3 ML INH ONE (15:06)
[2018-10-17] MEDS ORDERED: Magnesium Sulfate 2 GM IV* 2 GM/50 ML BAG IVPB ONE (15:08)
[2018-10-17] MEDS ORDERED: Acetaminophen SUPP* 650 MG SUPP PR ONE (15:08)
--- NOTE | 2018-10-17 15:17 | ED ---
Shortness of Breath - HPI Summary HPI Summary: A 63 y/o female brought in by ambulance presents to the ED c/o SOB. In the ED room, the patient has a pulse of 125 BPM, O2 saturation of 99%, and blood pressure of 155/106. As per triage, "Pt presented with difficulty breathing, fever, and altered mental status". As per EMS, the patient has a history of COPD , HTN, and hypothyroidism. Patient has a vascular disease. Patient had 1 stend placed as a result of cardiac issue, however, EMT is not sure of location. Patient was here at the beginning of the month for abdominal surgery, possibly a hernia. She was recently back in for getting her adore removed. Patient was at her baseline up until today, other than her normal COPD. Patient is on O2 and takes CPAP at night. Today she has extreme lack of breathing and called the ambulance. Patient lives in [facility] at [facility], which is not assisted living. - History of Current Complaint Chief Complaint: EDShortnessOfBreath Time Seen by Provider: 10/17/18 15:06 Hx Obtained From: EMS Onset/Duration: Sudden Onset, Still Present Timing: Constant Dyspnea At: Rest Alleviating Factors: Nothing Associated Signs & Symptoms: Negative - Allergy/Home Medications Allergies/Adverse Reactions: Allergies Allergy/AdvReac Type Severity Reaction Status Date / Time gabapentin AdvReac Severe Memory Verified 09/03/18 09:22 Issues Home Medications: Home Medications Albuterol/Ipratropium RESP(NF) [Combivent Respimat(NF)] 1 puff INH QID 10/17/18 [History Confirmed 10/17/18] Aspirin EC TAB* [Ecotrin EC Low Dose 81 MG*] 81 mg PO QAM 10/17/18 [History Confirmed 10/17/18] Lisinopril TAB* [Prinivil TAB*] 10 mg PO QAM 10/17/18 [History Confirmed ] Metoprolol Succinate XL TAB* [Toprol XL TAB*] 25 mg PO QAM 10/17/18 [History Confirmed 10/17/18] PMH/Surg Hx/FS Hx/Imm Hx Endocrine/Hematology History: Reports: Hx Anticoagulant Therapy, Hx Thyroid Disease - Hypothyroid Denies: Hx Diabetes Cardiovascular History: Reports: Hx Angioplasty, Hx Coronary Artery Disease, Hx Deep Vein Thrombosis, Hx Hypercholesterolemia, Hx Hypertension, Hx Peripheral Vascular Disease, Other Cardiovascular Problems/Disorders - VASCULAR DISEASE ON LEGS AND ABD (PVD) Denies: Hx Pacemaker/ICD Respiratory History: Reports: Hx Asthma, Hx Chronic Obstructive Pulmonary Disease (COPD) - pt reports on 2L O2 when laying down at home, Hx Seasonal Allergies, Other Respiratory Problems/Disorders - COLLAPSED LUNG 30 YRS AGO GI History: Reports: Hx Diverticulosis - 09/29/18, Hx Gastroesophageal Reflux Disease, Hx Hiatal Hernia - with bowel loop, Other GI Disorders - bowel necrosis and surgery Denies: Hx Crohn's Disease, Hx Gall Bladder Disease, Hx Gastrointestinal Bleed, Hx Jaundice, Hx Obstructive Bowel, Hx Pyloric Stenosis History: Reports: Hx Kidney Stones - 09/29/18, Other Problems/Disorders - frequent UTI Musculoskeletal History: Reports: Hx Arthritis, Hx Orthopedic Injury, Other Musculoskeletal History - arthritis, degenerative disk in neck, R SHOULDER PAIN Sensory History: Reports: Hx Contacts or Glasses, Hx Hearing Aid, Hx Hearing Problem - [place] Denies: Hx Eye Injury, Hx Eye Prosthesis, Hx Glaucoma, Hx Legally Blind, Hx Macular Degeneration, Hx Vision Problem, Hx Deafness Opthamlomology History: Reports: Hx Contacts or Glasses Denies: Hx Eye Injury, Hx Eye Prosthesis, Hx Glaucoma, Hx Legally Blind, Hx Macular Degeneration, Hx Vision Problem Neurological History: Reports: Other Neuro Impairments/Disorders - tingling down left arm from arthritis Psychiatric History: Reports: Hx Anxiety, Hx Depression, Hx Panic Disorder - Cancer History Cancer Type, Location and Year: None reported Hx Chemotherapy: No Hx Radiation Therapy: No Hx Palliative Cancer Treatment: No - Surgical History Surgery Procedure, Year, and Place: LT LEG SURGERY 2006, RT SHOULDER -, RT SHOULDER 4-12 AT [place], right femoral angioplasty, 10/2013, [place], recent bowel resection December 2013, R LEG--[place] - Immunization History Date of Tetanus Vaccine: Unkown Infectious Disease History: No Infectious Disease History: Reports: Hx Tuberculosis - 10 YEARS, History Other Infectious Disease - Klebsiella P. in urine Denies: Hx Clostridium Difficile, Hx Hepatitis, Hx of Known/Suspected MRSA, Hx Shingles, Hx Known/Suspected VRE, Hx Known/Suspected VRSA, Traveled Outside the [place] in Last 30 Days - Family History Known Family History: Negative: Hypertension, Diabetes - Social History Alcohol Use: None Hx Substance Use: Yes Substance Use Type: Reports: None Substance Use Comment - Amount & Last Used: have (+) for opiod and benzodiazepine. Hx Tobacco Use: Yes Smoking Status (MU): Former Smoker Type: Cigarettes Amount Used/How Often: 2 ppd Length of Time of Smoking/Using Tobacco: 40 Have You Smoked in the Last Year: No Review of Systems Negative: Fever Positive: Shortness Of Breath All Other Systems Reviewed And Are Negative: Yes Physical Exam - Summary Physical Exam Summary: Appearance: Well appearing, no pain distress Skin: warm, dry, reflects adequate perfusion, scar on the abdomen Head/face: normal Eyes: EOMI, LYDIA ENT: normal Neck: supple, non-tender Respiratory: bilateral wheezes present Cardiovascular: tachycardia Abdomen: non-tender, soft Musculoskeletal: normal, strength/ROM intact Neuro: A&Ox3 Triage Information Reviewed: Yes Vital Signs On Initial Exam: Initial Vitals Temp Pulse Resp BP Pulse Ox 104.8 F 119 21 164/106 100 10/17/18 15:00 10/17/18 15:00 10/17/18 15:00 10/17/18 15:00 10/17/18 15:00 Vital Signs Reviewed: Yes Diagnostics - Vital Signs Vital Signs Temp Pulse Resp BP Pulse Ox 10/17/18 15:00 104.8 F 119 21 164/106 100 - Laboratory Result Diagrams: 10/17/18 15:15 10/17/18 15:15 Lab Statement: Any lab studies that have been ordered have been reviewed, and results considered in the medical decision making process. - Radiology CXR Radiology Interpretation Completed By: Radiologist Summary of Radiographic Findings: SMALL RIGHT BASILAR INFILTRATE. ED PHYSICIAN REVIEWED THIS RADIOLOGY REPORT. - EKG 1514 Cardiac Rate: Tachycardia - 116 BPM EKG Rhythm: Sinus Tachycardia - 116 BPM Summary of EKG Findings: NO ACUTE CHANGES Course/Dx - Course Course Of Treatment: A 63 y/o female brought in by ambulance presents to the ED c/o SOB. In the ED room, the patient has a pulse of 125 BPM, O2 saturation of 99 %, and blood pressure of 155/106. As per EMS, the patient has a history of COPD , HTN, and hypothyroidism. Patient has a vascular disease. Patient had 1 stend placed as a result of cardiac issue, however, EMT is not sure of location. Patient was here at the beginning of the month for abdominal surgery, possibly a hernia. She was recently back in for getting her adore removed. Patient was at her baseline up until today, other than her normal COPD. Patient is on O2 24/ 7 and takes CPAP at night. Today she has extreme lack of breathing and called the ambulance. Patient lives in [facility] at [facility], which is not assisted living. Physical examination revealed scar on the abdomen, tachycardia , and bilateral wheezes present. A CXR revealed small right basilar infiltrate. An EKG revealed tachycardia at a rate of 116 BPM, no acute changes. Hematology and Chemistry screens were done. No significant laboratory abnormalities were done. In the ED course, the patient received Tylenol, Duoneb, Ativan, Magnesium Sulfate, Solu-Medrol, and Piperacillin. Patient care was discussed with hospitalist, Dr. Mckeon, who accepts patient for admission. Patient will be admitted with a diagnosis of COPD exacerbation and pneumonia. Patient is agreeable with this plan. - Diagnoses Differential Diagnosis/HQI/PQRI: Positive: Asthma, Bronchitis, COPD Exacerbation , Pneumonia Provider Diagnoses: Pneumonia, COPD exacerbation - Physician Notifications Discussed Care of Patient With: Eliz Mckeon Time Discussed With Above Provider: 16:20 Instructed by Provider To: Other - Accepts patient for admission. Discharge - Sign-Out/Discharge Documenting (check all that apply): Patient Departure - ADMIT, Sign-Out Patient - ASHER Signing out patient TO: Eliz Mckeon Receiving patient FROM: Misael Chase - Discharge Plan Condition: Stable Disposition: ADMITTED TO [facility] Referrals: Miguel Parmar MD [Primary Care Provider] - - Billing Disposition and Condition Condition: STABLE Disposition: Admitted to [facility] - Attestation Statements Document Initiated by rBandi: Yes Documenting Scribe: Jj Peacock Provider For Whom Brandi is Documenting (Include Credential): Misael Chase MD Scribe Attestation: Jj Slade scribed for Misael Chase MD on 10/17/18 at 1705. Scribe Documentation Reviewed: Yes Provider Attestation: The documentation as recorded by the Jj [email or web address] accurately reflects the service I personally performed and the decisions made by me, Misael Chase MD Status of Scribe Document: Viewed
[2018-10-17] MEDS ORDERED: LORazepam INJ* 2 MG/ML 1 ML VIAL IV PUSH ONE (15:23)
[2018-10-17] MEDS ORDERED: Piperacillin/Tazobac ADVAN(*) 3.375 GM in NS 0.9% 100 ML* 100 ML IVPB ONE (15:24)
[2018-10-17 15:42] LABS: ABS Basophils 0.1 10^3/ul (0-0.2); ABS Eosinophils 0.1 10^3/ul (0-0.6); ABS Lymphocytes 0.8 10^3/ul (1.0-4.8); ABS Neutrophils 12.7 10^3/ul (1.5-7.7); ABS Nucleated RBC 0 10^3/ul; Eosinophil % 0.5 %; Hematocrit 37 % (35-47); Lymphocyte % 5.3 %; Mean Corpuscular HGB Conc 32 g/dl (31-36); Mean Corpuscular Hemoglobin 30 pg (27-31); Mean Corpuscular Volume 92 fL (80-97); Mean Platelet Volume 8.2 fL (7.4-10.4); Nucleated Red Blood Cells % 0; Platelet Count 293 10^3/ul (150-450); Red Blood Count 4.05 10^6/ul (4.00-5.40); Red Cell Distribution Width 14 % (10.5-15); White Blood Count 14.6 10^3/ul (3.5-10.8)
[2018-10-17 15:53] LABS: Activated Partial Thrombo Time 29.4 seconds (26.0-36.3); INR 0.95 (0.77-1.02)
--- OUTSIDE RECORDS SUMMARY | 2018-10-17 15:58 | XMS REPORT | Continuity of Care Document ---
:1955 External Reference #:[id number] Author Name Ana Magaña Care Team Providers Name Role Phone Miguel Parmar MD Primary Care Physician Unavailable Payers Type Date Identification Numbers Payment Provider Subscriber Policy Number: [id number] [employer] Linda Ellington Group Number: [id number] [address] PayID: [id number] [place] [address] Effective: 2017 Policy Number: [id number] [facility] Linda Ellington Expires: 2019 Group Number: 80% [id number] PayID: [id number] [address] [place] [address] Effective: 2013 Policy Number: [id number] Medicare Linda Ellington Expires: 2018 PayID: [id number] [address] [place] [address] Expires: 2016 Policy Number: [id number] Alexandru Ellington Onset: 2010 PayID: [id number] [address] [address] [place] [address] Expires: 2016 Policy Number: [id number] Alexandru Ellington Onset: 2010 Group Name: Ortho [address] PayID: MARY Brasher [id number] Effective: 2016 Policy Number: [id number] [facility] Linda Ellington Expires: 2018 Group Number: 80% [address] PayID: [id number] [address] [place] [address] Advance Directives Description No Information Available Problems Date Description Provider Status Onset: 10/28/2013 Cervical spondylosis without myelopathy Abdias Brannon M.D. Active Family History Date Family Member(s) Problem(s) Comments General Diabetes General Heart Disease General Hypertension General Stroke Father [place] Social History Type Date Description Comments Sex Unknown Marital Status Single Lives With Daughter Occupation Unemployed Tobacco Use Start: Unknown End: Former Cigarette Smoked for 50+years Unknown Smoker PPD, quit 2013 ETOH Use Denies alcohol use ETOH Use Has consumed alcohol History of alcohol in the past abuse Tobacco Use Start: Unknown End: Patient is a former quit in April 2014, Unknown smoker smoked for 46 years 1 ppd Recreational Drug Use Former Drug User History of marijuana use Smoking Status Reviewed: 10/15/18 Patient is a former quit in April 2014, smoker smoked for 46 years 1 ppd Exercise Type/Frequency Does not exercise Allergies, Adverse Reactions, Alerts Date Description Reaction Status Severity Comments 10/10/2018 Gabapentin Active 07/31/2013 NKDA Inactive Medications Medication Date Status Form Strength Qnty SIG Indications Ordering Provider Sertraline HCL Active Tablets 100mg 30tab 2 po qd Midura, / s MD Miguel Xanax Active Tablets 0.25mg 20tab one by Midura, s mouth up to MD Miguel three times daily as needed for anxiety Plavix Active Tablets 75mg 1 by mouth Unknown every day Cyclobenzaprine Active Tablets 10mg one by Unknown HCL / mouth two times a day as needed spasm Aspirin Active Tablets DR 81mg 1 by mouth Unknown every day Oxycodone-Acetam Active Tablets 5-325mg 1 tablet po [place], inophen / q 8 hrs MD Bayron Montelukast Active Tablets 10mg 1 by mouth Unknown Sodium every day Metoprolol Active Tablets ER 25mg 90tab 1 by mouth Jasper S. Succinate ER /0000 24HR s every day DO Prince FACNaveen Nitrostat Active Tablets Sub 0.4mg one sl Unknown q5min up to 3 doses as needed Levothyroxine Active Tablets 75mcg 1 by mouth Unknown Sodium / every day Combivent Active Aerosol 20-100mcg prn Unknown Respimat / /Act Lyrica 00/00 Active Capsules 50mg 1 by mouth Unknown twice a day Myrbetriq Active Tablets ER 50mg 1 by mouth Unknown 24HR every day Atorvastatin Active Tablets 40mg 1 by mouth Unknown Calcium / every day Diltiazem HCL ER Active Caps ER 240mg Unknown Coated Beads 24HR Advair HFA Active Aerosol 115-21mcg Midura, / /Act MD Miguel Lisinopril Active Tablets 10mg 1 by mouth Unknown every day Crestor 04/02 Hx Tablets 10mg 90tab 2 by mouth 411.1 Alex s every day Guera Elizabeth M.D. Celebrex 07/31 Hx Capsules 200mg 30cap Take 1 721.0 s Capsule By [place], - Mouth Once M.D. 03/29 Daily. Lidoderm [...] Tablets 10mg 45tab 1 tab by Tristen HCL s mouth three Kwan, - times a day M.D. 07/31 spasm Warfarin Sodium Hx Tablets 10mg 90tab take as Midura, / s directed MD Miguel - 03/10 Lisinopril Hx Tablets 10mg 90tab 1 po qd Midura, / s MD Miguel Symbicort Hx Aerosol 80-4.5mcg 2 puffs bid Midura, /Act rinse mouth MD Miguel after using Atenolol Hx Tablets 50mg 30tab 1 po qd Midura, / s MD Miguel - 12/04 Singulair Hx Tablets 10mg 30tab 1 po qd Midura, /0000 s MD Miguel - 12/04 Proair HFA Hx Aerosol 108(90Bas 1unit 2 puffs po Midura, /0000 e) s q4h prn MD Miguel - mcg/Act 11/29 Veramyst Hx Suspension 27.5mcg/S 10gm 2 sprays Midura, /0000 pray each MD Miguel - nostril 12/05 Gabapentin Hx Capsules 400mg 1 by mouth Unknown /0000 four times daily Spiriva Hx Capsules 18mcg 2 puffs Unknown Handihaler /0000 twice per day Medications Administered in Office Medication Date Status Form Strength Qnty SIG Indications Ordering Provider Depomedrol Administered Injection Tony F 40MG 016 MD Estefany Inj, Administered Injection Alex D. Regadenoson, 015 Yanira Elizabeth 0.1 MG Technetium TC Administered Injection Alex Lynne 99M 015 Yanira Elizabeth Tetrofosmin, Per Unit Dose Up To 40 Millicuries Depomedrol Administered Injection Tristen 80MG 011 Yanira Bowens Depomedrol Administered Injection Tristen 80MG 011 Yanira Bowens Immunizations Description No Information Available Vital Signs Date Vital Result Comment 10/15/2018 11:22am Height 67 inches 5'7" Weight 170.00 lb Heart Rate 64 /min BP Systolic Sitting 138 mmHg Ra reg cuff BP Diastolic Sitting 80 mmHg Ra reg cuff O2 % BldC Oximetry 94 % BMI (Body Mass Index) 26.6 kg/m2 10/10/2018 10:23am Height 67 inches 5'7" Weight 170.00 lb Heart Rate 74 /min BP Systolic 132 mmHg BP Diastolic 86 mmHg Respiratory Rate 20 /min Body Temperature 96.2 F BMI (Body Mass Index) 26.6 kg/m2 12/12/2017 12:59pm Height 67 inches 5'7" Weight 170.00 lb Heart Rate 76 /min BP Systolic Sitting 142 mmHg Rue reg cuff BP Diastolic Sitting 102 mmHg Rue reg cuff BP Systolic Standing 134 mmHg Rue BP Diastolic Standing 94 mmHg Rue Respiratory Rate 16 /min BMI (Body Mass Index) 26.6 kg/m2 Ejection Fraction 55-60% 12/03/17 07/31/2016 9:24am Height 67 inches 5'7" Weight 169.00 lb Heart Rate 88 /min BP Systolic 119 mmHg BP Diastolic 79 mmHg Pain Level 7 BMI (Body Mass Index) 26.5 kg/m2 04/02/2015 3:49pm Height 66 inches 5'6" Weight 141.31 lb [...] BMI (Body Mass Index) 22.8 kg/m2 09/11/2013 9:57am Height 66 inches 5'6" Weight 134.00 lb BP Systolic 130 mmHg BP Diastolic 82 mmHg Pain Level 5 neck BMI (Body Mass Index) 21.6 kg/m2 07/31/2013 9:43am Height 66 inches 5'6" Weight 134.00 lb BP Systolic 148 mmHg BP Diastolic 98 mmHg Pain Level 10 neck BMI (Body Mass Index) 21.6 kg/m2 12/26/2010 11:26am Height 66 inches 5'6" Weight 125.00 lb Heart Rate 82 /min BP Systolic 169 mmHg BP Diastolic 103 mmHg BMI (Body Mass Index) 20.2 kg/m2 12/19/2010 9:41am Height 65 inches 5'5" Weight 125.00 lb Heart Rate 107 /min BP Systolic 146 mmHg BP Diastolic 107 mmHg BMI (Body Mass Index) 20.8 kg/m2 Results Test Date Facility Test Result H/L Range Note Laboratory test 09/29/2018 [facility] Surgical SEE RESULT [address] Pathology BELOW [place], [place] [id number] [phone] 1 SEE RESULT BELOW Name: LINDA ELLINGTON : [address]: Danya Hernandez MD Acct: [id number] Unit: [id number] AGE: 63 Location: [place] [address] Re09/29/18 SEX: F Status: ADM IN SPEC: [id number] ILSA: 09/29/18- [facility] DR: Jasper Earl MD REQ: [id number] RECD: 09/29/18 STATUS: SOUT _ ORDERED: LEVEL 5 FINAL DIAGNOSIS Portion of large bowel, resection: -- Benign large intestinal tissue with transmural necrosis. PRE-OPERATIVE DIAGNOSIS Lower abdominal pain. GROSS DESCRIPTION The specimen is received in formalin labeled, Portion of Large Bowel, and consists of a 3.8 x 1.8 x 1.5 cm sanabria-bettencourt irregular portion of intestinal tissue. The serosa is smooth to shaggy sanabria-brown with multiple fibromembranous adhesions. Sectioning reveals a 1.3 x 0.6 x 0.5 cm unilocular space with a dusky sanabria-bettencourt lining. The remaining cut surface is dusky sanabria-pink to santos with mild focal necrosis. The specimen is inked, serially sectioned and entirely submitted in three cassettes. Signed by and Reported on: Pennie Reed MD 10/01/18 1223 END OF REPORT DEPARTMENT OF PATHOLOGY, [address] [place] [address] Mj Cisneros M.D. Director [facility] # [id number] Procedures Date Code Description Status 10/15/2018 16816 EKG Tracing & Interpretation Completed 10/01/2018 68537 ECHO Transthorasic Realtime 2D W Doppler & Color Flow Hosp Completed 09/29/2018 30704 Excision Bowel Lesion(S) Single Enterotomy Completed 12/12/2017 75351 EKG Tracing & Interpretation Completed 12/06/2017 46551 EKG, Interpretation Only Completed 12/05/2017 51165 Cath PLMT&NJX L Ventriculog Img S&I Completed 12/05/2017 42440 EKG, Interpretation Only Completed 12/05/2017 10353 Revascularization Acute Total/Subtotal Occlusion Completed 12/04/2017 09028 Treadmill Interp/Report Only Completed 12/04/2017 90684 Stress Test Supervsn W/Out I/R Completed 12/03/2017 70739 EKG, Interpretation Only Completed 12/03/2017 90286 ECHO Transthorasic Realtime 2D W Doppler & Color Flow Hosp Completed 07/31/2016 82729 Inject/Drain Joint/Bursa Major W/O US Completed 04/16/2015 10010 Stress Test Completed 04/16/2015 64863 Myocardial Perfusion Imaging Tomographic (Spect) Multiple Completed Studies 04/02/2015 36054 EKG Tracing & Interpretation Completed 02/16/2015 15029 EEG Recording Awake & Asleep Completed 03/09/2014 67917 ECHO Transthorasic Realtime 2D W Doppler & Color Flow Hosp Completed 05/24/2011 83290 Inject/Drain Joint/Bursa Major W/O US Completed 01/27/2011 58704 Arthroscopy,Shoulder Decompression Of Subacromial Space Completed W/Acromio 01/27/2011 02293 Arthroscopy,Shoulder Decompression Of Subacromial Space Completed W/Acromio 12/26/2010 Inject/Drain Joint/Bursa Major W/O US Completed Encounters Type Date Location Provider Dx Diagnosis Office Visit 10/03/2018 [facility] Danya Hernandez, I48.91 Unspecified atrial 9:21a gail Abraham M.D. fibrillation Hospitalists N17.9 Acute kidney failure, unspecified J96.11 Chronic respiratory failure with hypoxia A41.9 Sepsis, unspecified organism I73.9 Peripheral vascular disease, unspecified R41.82 Altered mental status, unspecified M62.82 Rhabdomyolysis Office Visit 10/02/2018 [facility] Danya Hernandez, I48.91 Unspecified 9:20a gail Abraham M.D. atrial Hospitalists fibrillation N17.9 Acute kidney failure, unspecified J96.11 Chronic respiratory failure with hypoxia A41.9 Sepsis, unspecified organism I73.9 Peripheral vascular disease, unspecified R41.82 Altered mental status, unspecified Office Visit 10/01/2018 9:19a [facility] Jennifer R00.0 Tachycardia, Assoc,pc [facility], DO unspecified Hospitalists R06.02 Shortness of breath Office Visit 09/30/2018 [facility] Danya Hernandez, N17.9 Acute kidney 9:19a gail Abraham M.D. failure, Hospitalists unspecified J96.11 Chronic respiratory failure with hypoxia K43.6 Other and unsp ventral hernia with obstruction, w/o gangrene R41.82 Altered mental status, unspecified A41.9 Sepsis, unspecified organism I73.9 Peripheral vascular disease, unspecified Office Visit 09/29/2018 9:18a [facility] Fredy Rajput, N17.9 Acute kidney Assoc,gail CONDON failure, Hospitalists unspecified A41.9 Sepsis, unspecified organism K46.0 Unsp abdominal hernia with obstruction, without gangrene J96.11 Chronic respiratory failure with hypoxia I73.9 Peripheral vascular disease, unspecified M62.82 Rhabdomyolysis Office Visit 09/29/2018 7:00a Surgical Jasper Griffin K43.6 Other and unsp [facility] Earl MD, ventral hernia FACS with obstruction, w/o gangrene Office Visit 09/28/2018 9:17a [facility] Chanel Ortega, R41.82 Altered mental Assoc,pc N.P. 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 Fredy Rajput I21.4 Non-St elevation Assgail knapp MD (Nstemi) Hospitalists myocardial infarction N30.00 Acute cystitis without hematuria R41.82 Altered mental status, unspecified J44.1 Chronic obstructive pulmonary disease w (acute) exacerbation Office Visit 12/06/2017 3:58p [facility] Cecilia Rendon I21.A1 Myocardial Of [facility] AT [facility] MD Bam, infarction type 2 FAC, FSCAI I25.10 Athscl heart disease of [place] coronary artery w/o ang pctrs Office Visit 12/05/2017 8:29a [facility] Fredy Rajput I21.4 Non-St elevation gail Abraham MD (Nstemi) Hospitalists myocardial infarction N30.00 Acute cystitis without hematuria R41.82 Altered mental status, unspecified I10 Essential (primary) hypertension Office Visit 12/04/2017 8:28a [facility] Fredy Rajput I21.4 Non-St elevation Assgail knapp MD (Nstemi) Hospitalists myocardial infarction N30.00 Acute cystitis without hematuria R41.82 Altered mental status, unspecified I10 Essential (primary) hypertension Office Visit 12/04/2017 4:00p [facility] Alex Lynne I24.9 Acute ischemic Of [facility] Yanira Elizabeth heart disease, unspecified Office Visit 12/03/2017 1:11p [facility] Alex Lynne I24.9 Acute ischemic Of [facility] Yanira Elizabeth heart disease, unspecified I35.0 Nonrheumatic aortic (valve) stenosis Office Visit 12/03/2017 [facility] Payam R41.82 Altered mental 8:26a Assoc,pc Nathan, N.P. status, Hospitalists unspecified I10 Essential (primary) hypertension E78.5 Hyperlipidemia, unspecified J44.1 Chronic obstructive pulmonary disease w (acute) exacerbation Office Visit 09/26/2017 8:49a [facility] Fredy Rajput MD R42 Dizziness and Assoc,gail giddiness Hospitalists M54.2 Cervicalgia G89.29 Other chronic pain J44.9 Chronic obstructive pulmonary disease, unspecified Office Visit 07/31/2016 Orthopedic Tony F M17.12 Unilateral primary 9:00a Services Of MD Estefany osteoarthritis, left C.M.A. knee M25.562 Pain in left knee Office Visit 04/02/2015 4:00p [facility] Alex Lynne 443.9 Peripheral Of Rubén Elizabeth M.D. Vascular Disease Unspec 411.1 Coronary Syndrome Intermediate Office Visit 02/18/2015 [facility] Nghia 590.80 Pyelonephritis 7:26a Assoc,gail Agudelo M.D. Unspec Hospitalists 443.9 Peripheral Vascular Disease Unspec 557.9 Vascular Insufficiency Of Intestine Unspecified 995.90 Systemic Inflammatory Response Syndrome, Unspecified Office Visit 02/17/2015 [facility] Bryant Lynne 590.80 Pyelonephritis 9:22a For Cora Damon M.D. Unspec Diseases V45.72 Acquired Absence Of Intestine (Large) (Small) Office Visit 02/17/2015 [facility] Suzie 590.80 Pyelonephritis 7:25a Assocgail M.D. Unspec Hospitalists 443.9 Peripheral Vascular Disease Unspec 557.9 Vascular Insufficiency Of Intestine Unspecified 995.90 Systemic Inflammatory Response Syndrome, Unspecified Office Visit 02/16/2015 7:25a [facility] Suzie 443.9 Peripheral Assocgail M.D. Vascular Disease Hospitalists Unspec 496 COPD Airway Obstruction Chronic Not Class Elsewhere 995.90 Systemic Inflammatory Response Syndrome, Unspecified 780.97 Altered Mental Status Office Visit 02/16/2015 [facility] Bryant Lynne 780.62 Postprocedural 9:17a For Cora Damon M.D. 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 Payam 443.9 Peripheral Assoc,gail Evans, N.PMarcia Vascular Disease Hospitalists Unspec 496 COPD Airway Obstruction Chronic Not Class Elsewhere 780.97 Altered Mental Status 995.90 Systemic Inflammatory Response Syndrome, Unspecified Office Visit 01/10/2015 [facility] Kit Pan, 557.9 Vascular 10:01a Assoc,pc D.O. Insufficiency Of Hospitalists Intestine Unspecified 557.1 Vascular Insufficiency Of Intestine Chronic 458.9 Hypotension Unspec 286.9 Coagulation Defects Other & Unspec Office Visit 09/11/2013 10:15a Neurosurgery Abdias Brannon, 721.0 Spondylosis Services Of [facility] M.DMarcia Cervical W/O Myelopathy Office Visit 07/31/2013 10:00a Neurosurgery Abdias Brannon, 721.0 Spondylosis Services Of [facility] M.DMarcia Cervical W/O Myelopathy 721.0 Spondylosis Cervical W/O Myelopathy 721.0 Spondylosis Cervical W/O Myelopathy Office Visit 11/01/2011 9:00a Arminda Bautista6.2 Shoulder Region Services Of C.MAndre Doyle Affections Other Not Elsewhere Class Office Visit 09/14/2011 9:00a Arminda Bautista6.2 Shoulder Region Services Of C.MAndre Doyle Affections Other Not Elsewhere Class Office Visit 08/01/2011 11:00a Arminda Bautista6.2 Shoulder Region Services Of C.MAndre Mckay. Affections Other Not Elsewhere Class Office Visit 06/26/2011 11:00a Arminda Bautista6.0 Adhesive Services Of C.M.AMarcia Doyle Capsulitis Shoulder Office Visit 05/29/2011 11:00a Arminda Bautista6.0 Adhesive Services Of C.MAndre Doyle Capsulitis Shoulder Office Visit 05/24/2011 9:30a Arminda Bautista6.0 Adhesive Services Of C.Ana Doyle Capsulitis Shoulder Office Visit 01/09/2011 9:30a Unique Bautista.2 Shoulder Region Services Of C.M.A. Woody. Affections Other Not Elsewhere Class 840.9 Sprains & Strains Shoulder & Upper Arm Unspec Office Visit 12/26/2010 11:15a Orthopedic Tristen Bowens, 726.2 Shoulder Region Services Of Rod Doyle Affections Other Not Elsewhere Class Office Visit 12/19/2010 10:15a Orthopedic Tristen Bowens, 840.9 Sprains & Strains Services Of Rod Doyle Shoulder & Upper Arm Unspec 719.41 Pain Joint Shoulder Region Office Visit 12/05/2010 2:00p Orthopedic Services Tristen Bowens, 840.9 Sprains & Of Rod Doyle Strains Shoulder & Upper Arm Unspec Office Visit 12/01/2010 1:00p Neurosurgery Howie Borreog 719.41 Pain Joint Services Of Rubén Boss M.D. Shoulder Region 305.1 Tobacco Use Disorder Plan of Treatment Future Appointment(s):10/30/2018 10:30 am - Vi Allen M.D. at [facility] Of CMarciaMAndre10/15/2018 - Jasper Morrison, FACCI25.10 Atherosclerotic heart disease of [place] coronary artery withFollow up:1 yearI35.0 Nonrheumatic aortic (valve) zxdjiycqJ07.9 Peripheral vascular disease, jfgqslkhjqcZ38.5 Hyperlipidemia, vpfplaohhrwT12 Essential (primary) qacnzpnyxevxX58.201 Nicotine dependence, unspecified, in xyspdatmdN41.9 Chronic obstructive pulmonary disease , shpebznoxbvH36.718 Personal history of other venous thrombosis and embolism
--- OUTSIDE RECORDS SUMMARY | 2018-10-17 15:58 | XMS REPORT | Continuity of Care Document ---
:1955 External Reference #:[id number] Author Name Pennie Bolanos Care Team Providers Name Role Phone Miguel Parmar MD Primary Care Physician Unavailable Payers Type Date Identification Numbers Payment Provider Subscriber Policy Number: [id number] [employer] Linda Ellington Group Number: [id number] [address] PayID: [id number] CHANCE Kay [id number] Effective: 2017 Policy Number: [id number] [facility] Linda Ellington Expires: 2019 Group Number: 80% [address] [facility] PayID: [id number] [address] [place] [address] Effective: 2013 Policy Number: [id number] Medicare Linda Ellington Expires: 2018 PayID: [id number] [address] [place] [address] Expires: 2016 Policy Number: [id number] Alexandru Ellington Onset: 2010 PayID: [id number] [address] [address] [place] [address] Expires: 2016 Policy Number: [id number] Alexandru Ellington Onset: 2010 Group Name: Ortho [address] PayID: MARY Brasher [id number] Effective: 2016 Policy Number: [id number] [facility] Linda Ellington Expires: 2018 Group Number: 80% [address] PayID: [id number] [address] [place] [address] Advance Directives Description No Information Available Problems Date Description Provider Status Onset: 10/28/2013 Cervical spondylosis without myelopathy Abdias Brannon M.D. Active Family History Date Family Member(s) Problem(s) Comments General Diabetes General Heart Disease General Hypertension General Stroke Father [place] Social History Type Date Description Comments Sex [...] History of marijuana use Smoking Status Reviewed: 10/10/18 Patient is a former quit in April [...] Tablets DR 81mg 1 by mouth Unknown / every day Oxycodone-Acetam Active Tablets 5-325mg 1 [...] Combivent Active Aerosol 20-100mcg prn Unknown Respimat /0000 /Act Lyrica Active Capsules 50mg 1 by mouth Unknown twice a day Myrbetriq Active Tablets ER 50mg 1 by mouth Unknown 24HR every day Atorvastatin Active Tablets 40mg 1 by mouth Unknown Calcium / every day Diltiazem HCL ER Active Caps ER 240mg Unknown Coated Beads 24HR Advair HFA Active Aerosol 115-21mcg Midura, / /Act MD Miguel Crestor 04/02 Hx Tablets 10mg 90tab 2 [...] Kwan, - times a day M.D. 07/31 Warfarin Sodium Hx Tablets 10mg 90tab take as Midura, / s directed MD Miguel - 03/10 Lisinopril Hx Tablets 10mg 90tab 1 po qd Midura, / s MD Miguel Symbicort Hx Aerosol 80-4.5mcg 2 puffs bid Midura, / /Act rinse mouth MD Miguel after using Atenolol Hx Tablets 50mg 30tab 1 po qd Midura, /0000 s MD Miguel - 12/04 Singulair Hx Tablets 10mg 30tab 1 po qd Midura, / s MD Miguel - 12/04 Proair HFA [...] Available Vital Signs Date Vital Result Comment 10/10/2018 10:23am Height 67 inches 5'7" Weight [...] Result H/L Range Note Laboratory test 09/29/2018 [facility] Surgical SEE RESULT [address] [place] [address] [phone] 1 SEE RESULT BELOW Name: LINDA ELLINGTON : [address]: Danya Hernandez MD Acct: [id number] Unit: [id number] AGE: 63 Location: [place] [address] Re09/29/18 SEX: F Status: ADM IN SPEC: [id number] ILSA: 09/29/18- SUBM DR: Jasper Earl MD REQ: [id number] RECD: 09/29/18 STATUS: SOUT _ ORDERED: LEVEL [...] 1223 END OF REPORT DEPARTMENT OF PATHOLOGY, [address] [place] [address] Mj Cisneros M.D. Director [facility] # [id number] Procedures Date Code Description Status 12/12/2017 90877 EKG Tracing & Interpretation Completed 12/06/2017 00972 EKG, Interpretation Only Completed 12/05/2017 76657 Cath PLMT&NJX L Ventriculog Img S&I Completed 12/05/2017 91886 EKG, Interpretation Only Completed 12/05/2017 70169 Revascularization Acute Total/Subtotal Occlusion Completed 12/04/2017 26248 Treadmill Interp/Report Only Completed 12/04/2017 92764 Stress Test Supervsn W/Out I/R Completed 12/03/2017 39471 ECHO Transthorasic Realtime 2D W Doppler & Color Flow Hosp Completed 12/03/2017 98940 EKG, Interpretation Only Completed 07/31/2016 68326 Inject/Drain Joint/Bursa Major W/O US Completed 04/16/2015 30391 Stress Test Completed 04/16/2015 37649 Myocardial Perfusion Imaging Tomographic (Spect) Multiple Completed Studies 04/02/2015 79922 EKG Tracing & Interpretation Completed 02/16/2015 19171 EEG Recording Awake & Asleep Completed 03/09/2014 22057 ECHO Transthorasic Realtime 2D W Doppler & Color Flow Hosp Completed 05/24/2011 62827 Inject/Drain Joint/Bursa Major W/O US Completed 01/27/2011 50465 Arthroscopy,Shoulder Decompression Of Subacromial Space Completed W/Acromio 01/27/2011 12998 Arthroscopy,Shoulder Decompression Of Subacromial Space Completed W/Acromio 12/26/2010 50439 Inject/Drain Joint/Bursa Major W/O US Completed Encounters Type Date Location Provider Dx Diagnosis Office Visit 12/12/2017 [facility] Jasper Morrison, 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: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 Of Pharmacist In Charge Owner DO 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 E78.5 Hyperlipidemia, unspecified I35.0 Nonrheumatic aortic (valve) stenosis I73.9 Peripheral vascular disease, unspecified I10 Essential (primary) hypertension I25.6 Silent myocardial ischemia F17.201 Nicotine dependence, unspecified, in remission Office Visit 12/06/2017 8:30a [facility] Fredy Rajput, I21.4 Non-St elevation Assgail knapp MD (Nstemi) Hospitalists myocardial infarction N30.00 Acute cystitis without hematuria R41.82 Altered mental status, unspecified J44.1 Chronic obstructive pulmonary disease w (acute) exacerbation Office Visit 12/06/2017 3:58p [facility] Cecilia Rendon I21.A1 Myocardial Of Pharmacist In Charge Owner AT [facility] MD Bam, infarction type 2 FACC, FSCAI I25.10 Athscl heart disease of [place] coronary artery w/o ang pctrs Office Visit 12/05/2017 8:29a [facility] Fredy Rajput I21.4 Non-St elevation Assgail knapp MD (Nstemi) Hospitalists myocardial infarction N30.00 Acute cystitis without hematuria R41.82 Altered mental status, unspecified I10 Essential (primary) hypertension Office Visit 12/04/2017 8:28a [facility] Mickey Rajput I21.4 Non-St elevation Assgail knapp MD (Nstemi) Hospitalists myocardial infarction N30.00 Acute cystitis without hematuria R41.82 Altered mental status, unspecified I10 Essential (primary) hypertension Office Visit 12/04/2017 4:00p [facility] Alex Lynne I24.9 Acute ischemic Of Rubén Elizabeth M.D. heart disease, unspecified Office Visit 12/03/2017 8:26a [facility] Payam R41.82 Altered mental Assoc,pc Evans, status, Hospitalists N.P. unspecified I10 Essential (primary) hypertension E78.5 Hyperlipidemia, unspecified J44.1 Chronic obstructive pulmonary disease w (acute) exacerbation Office Visit 12/03/2017 1:11p [facility] Alex Lynne I24.9 Acute ischemic Of Rubén Elizabeth M.D. 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 knee M25.562 Pain in left knee Office Visit 04/02/2015 4:00p [facility] Alex Lynne 443.9 Peripheral Of Rubné Elizabeth M.D. Vascular Disease Unspec 411.1 Coronary Syndrome Intermediate Office Visit 02/18/2015 [facility] Nghia 590.80 Pyelonephritis 7:26a Assocgail M.D. Unspec Hospitalists 443.9 Peripheral Vascular Disease Unspec 557.9 Vascular Insufficiency Of Intestine Unspecified 995.90 Systemic Inflammatory Response Syndrome, Unspecified Office Visit 02/17/2015 [facility] Bryant Lynne 590.80 Pyelonephritis 9:22a For Infectious Yanira Damon Unspec Diseases V45.72 Acquired Absence Of Intestine (Large) (Small) Office [facility] Pyelonephritis 7:25a Assocgail M.D. Unspec Hospitalists 443.9 Peripheral Vascular Disease Unspec 557.9 Vascular Insufficiency Of Intestine Unspecified 995.90 Systemic Inflammatory Response Syndrome, Unspecified Office Visit 02/16/2015 7:25a [facility] Suzie 443.9 Peripheral Assocgail M.D. Vascular Disease Hospitalists Unspec 496 COPD Airway Obstruction Chronic Not Class Elsewhere 995.90 Systemic Inflammatory Response Syndrome, Unspecified 780.97 Altered Mental Status Office Visit 02/16/2015 [facility] Bryant Lynne 780.62 Postprocedural 9:17a For Cora Damon M.D. Fever Diseases 780.09 Consciousness Alteration Other V45.72 Acquired Absence Of Intestine (Large) (Small) 791.9 Urine Examination Other Nonspecific Findings 305.1 Tobacco Use Disorder 443.9 Peripheral Vascular Disease Unspec Office Visit 02/15/2015 7:23a [facility] Payam 443.9 Peripheral Assoc,gail Evans, N.PMarcia Vascular Disease Hospitalists Unspec 496 COPD Airway Obstruction Chronic Not Class Elsewhere 780.97 Altered Mental Status 995.90 Systemic Inflammatory Response Syndrome, Unspecified Office Visit 01/10/2015 [facility] Kit Pan, 557.9 Vascular 10:01a Assocgail.OMarcia Insufficiency Of Hospitalists Intestine Unspecified 557.1 Vascular Insufficiency Of Intestine Chronic 458.9 Hypotension Unspec 286.9 Coagulation Defects Other & Unspec Office Visit 09/11/2013 10:15a Neurosurgery Abdias Brannon, 721.0 Spondylosis Services Of [facility] M.D. Cervical W/O Myelopathy Office Visit 07/31/2013 10:00a Neurosurgery Abdias Brannon, 721.0 Spondylosis [facility] M.DMarcia Cervical W/O Myelopathy 721.0 Spondylosis Cervical W/O Myelopathy 721.0 Spondylosis Cervical W/O Myelopathy Office Visit 11/01/2011 9:00a Arminda Bautista6.2 Shoulder Region Services Of C.M.A. M.D. Affections Other Not Elsewhere Class Office Visit 09/14/2011 9:00a Arminda Bautista6.2 Shoulder Region Services Of C.M.[facility]. M.D. Affections Other Not Elsewhere Class Office Visit 08/01/2011 11:00a Arminda Bautista6.2 Shoulder Region Services Of [facility]. M.D. Affections Other Not Elsewhere Class Office Visit 06/26/2011 11:00a Arminda Bautista6.0 Adhesive Services Of C.[facility]. M.D. Capsulitis Shoulder Office Visit 05/29/2011 11:00a Arminda Bautista6.0 Adhesive Services Of C.[facility]. M.D. Capsulitis Shoulder Office Visit 05/24/2011 9:30a Arminda Bautista6.0 Adhesive Services Of C.[facility]. M.D. Capsulitis Shoulder Office Visit 01/09/2011 9:30a Arminda Bautista6.2 Shoulder Region Services Of C.M.A. M.D. Affections Other Not Elsewhere Class 840.9 Sprains & Strains Shoulder & Upper Arm Unspec Office Visit 12/26/2010 11:15a Arminda Bautista6.2 Shoulder Region Services Of C.M.A. M.D. Affections Other Not Elsewhere Class Office Visit 12/19/2010 10:15a Cassius Bowens 840.9 Sprains & Strains Services Of C.M.A. M.D. Shoulder & Upper Arm Unspec 719.41 Pain Joint Shoulder Region Office Visit 12/05/2010 2:00p Orthopedic Services Tristen Bowens 840.9 Sprains & Of C.M.Karly Doyle Strains Shoulder & Upper Arm Unspec Office Visit 12/01/2010 1:00p Neurosurgery Howie Borrego 719.41 Pain Joint Services [facility] Yanira Boss Shoulder Region 305.1 Tobacco Use Disorder Plan of Treatment Future Appointment(s):10/17/2018 2:20 pm - Jasper Morrison, DO FACC at [facility]10/10/2018 - Jasper Earl MD, FACSK55.069 Acute infarction of intestine, part and extent unspecifiedFollow up:As neededInstructions: Continue abdominal binder for 2 more weeks during gubcjawC54.1 Incisional hernia with gangrene
--- OUTSIDE RECORDS SUMMARY | 2018-10-17 15:58 | XMS REPORT | Continuity of Care Document ---
:1955 External Reference #:[id number] Author Name Priscilla Mercado Care Team Providers Name Role Phone Mgiuel Parmar MD Primary Care Physician Unavailable Payers Type Date Identification Numbers Payment Provider Subscriber Policy Number: [id number] [employer] Medicare Linda Ellington Group Number: [id number] [address] PayID: [id number] [place] [address] Effective: 2017 Policy Number: [id number] [facility] Linda Ellington Expires: 2019 Group Number: 80% [address] [facility] PayID: [id number] [address] [place] [address] Effective: 2013 Policy Number: [id number] Medicare Linda Ellington Expires: 2018 PayID: [id number] [address] [place] [address] Expires: 2016 Policy Number: [id number] Alexandru Ellington Onset: 2010 PayID: [id number] [address] [address] [place] [address] Expires: 2016 Policy Number: [id number] Alexandru Ellington Onset: 2010 Group Name: Ortho [address] PayID: MARY Brasher [id number] Effective: 2016 Policy Number: [id number] [facility] Linda Ellington Expires: 2018 Group Number: 80% [address] PayID: [id number] [address] [place] [address] Advance Directives Description No Information Available Problems [...] Active Tablets 0.25mg 20tab one by Midura, / s mouth up to MD Miguel three [...] 20-100mcg prn Unknown Respimat / /Act Lyrica Active Capsules 50mg 1 by mouth Unknown / twice a day Myrbetriq Active Tablets ER 50mg 1 by mouth Unknown / 24HR every day Atorvastatin Active Tablets 40mg 1 by mouth Unknown every day Diltiazem HCL ER Active Caps [...] 1 tab by Tristen s mouth three Kwan, - times a [...] 016 MD Estefany Inj, Administered Injection Alex Guera Regadenoson, 015 Yanira Elizabeth 0.1 MG Technetium [...] Result H/L Range Note Laboratory test 09/29/2018 [facility] Surgical SEE RESULT [address] [place] [address] [phone] SEE RESULT BELOW Name: LINDA ELLINGTON : [address]: Danya Hernandez MD Acct: [id number] Unit: [id number] AGE: 63 Location: [place] [address] Re09/29/18 SEX: F Status: ADM IN SPEC: [id number] ILSA: 09/29/18- SUBM DR: Jasper Earl MD REQ: [id number] RECD: 09/29/18 STATUS: SOUT _ ORDERED: LEVEL [...] 1223 END OF REPORT DEPARTMENT OF PATHOLOGY, [address] [place] [address] Mj Cisneros M.D. Director [facility] # [id number] Procedures Date Code Description Status 10/01/2018 61899 ECHO Transthorasic Realtime 2D W Doppler & Color Flow Hosp Completed 09/29/2018 96157 Excision Bowel Lesion(S) Single Enterotomy Completed 12/12/2017 76301 EKG Tracing & Interpretation Completed 12/06/2017 33359 EKG, Interpretation Only Completed 12/05/2017 63573 Cath PLMT&NJX L Ventriculog Img S&I Completed 12/05/2017 74738 EKG, Interpretation Only Completed 12/05/2017 77634 Revascularization Acute Total/Subtotal Occlusion Completed 12/04/2017 43512 Treadmill Interp/Report Only Completed 12/04/2017 53798 Stress Test Supervsn W/Out I/R Completed 12/03/2017 57478 EKG, Interpretation Only Completed 12/03/2017 94266 ECHO Transthorasic Realtime 2D W Doppler & Color Flow Hosp Completed 07/31/2016 62789 Inject/Drain Joint/Bursa Major W/O US Completed 04/16/2015 02129 Stress Test Completed 04/16/2015 95995 Myocardial Perfusion Imaging Tomographic (Spect) Multiple Completed Studies 04/02/2015 64993 EKG Tracing & Interpretation Completed 02/16/2015 48667 EEG Recording Awake & Asleep Completed 03/09/2014 65216 ECHO Transthorasic Realtime 2D W Doppler & Color Flow Hosp Completed 05/24/2011 50049 Inject/Drain Joint/Bursa Major W/O US Completed 01/27/2011 29949 Arthroscopy,Shoulder Decompression Of Subacromial Space Completed W/Acromio 01/27/2011 32728 Arthroscopy,Shoulder Decompression Of Subacromial Space Completed W/Acromio 12/26/2010 54485 Inject/Drain Joint/Bursa Major W/O US Completed Encounters Type Date Location Provider Dx Diagnosis Office Visit 10/03/2018 [facility] Danya Hernandez I48.91 Unspecified atrial 9:21a gail Abraham M.D. fibrillation Hospitalists N17.9 Acute kidney failure, unspecified J96.11 Chronic respiratory failure with hypoxia A41.9 Sepsis, unspecified organism I73.9 Peripheral vascular disease, unspecified R41.82 Altered mental status, unspecified M62.82 Rhabdomyolysis Office Visit 10/02/2018 [facility] Danya Hernandez, I48.91 Unspecified 9:20a Assoc,pc Woody. atrial Hospitalists fibrillation N17.9 Acute kidney failure, unspecified J96.11 Chronic respiratory failure with hypoxia A41.9 Sepsis, unspecified organism I73.9 Peripheral vascular disease, unspecified R41.82 Altered mental status, unspecified Office Visit 10/01/2018 9:19a [facility] Jennifer R00.0 Tachycardia, Assoc,pc [facility], DO unspecified Hospitalists R06.02 Shortness of breath Office Visit 09/30/2018 [facility] Danya Hernandez, N17.9 Acute kidney 9:19a Assoc,gail Doyle failure, Hospitalists unspecified J96.11 Chronic respiratory failure with hypoxia K43.6 Other and unsp ventral hernia with obstruction, w/o gangrene R41.82 Altered mental status, unspecified A41.9 Sepsis, unspecified organism I73.9 Peripheral vascular disease, unspecified Office Visit 09/29/2018 9:18a [facility] Fredy Rajput, N17.9 Acute kidney Assoc,gail CONDON failure, Hospitalists unspecified A41.9 Sepsis, unspecified organism K46.0 Unsp abdominal hernia with obstruction, without gangrene J96.11 Chronic respiratory failure with hypoxia I73.9 Peripheral vascular disease, unspecified M62.82 Rhabdomyolysis Office Visit 09/29/2018 7:00a Surgical Jasper PMarcia K43.6 Other and unsp [facility] Rubén Earl MD, ventral hernia FACS with obstruction, w/o gangrene Office Visit 09/28/2018 9:17a [facility] Chanelcamelia Ortega, R41.82 Altered mental Assoc,pc N.P. status, Hospitalists unspecified J44.9 Chronic obstructive pulmonary disease, unspecified E03.9 Hypothyroidism, unspecified Office Visit 12/12/2017 1:00p [facility] Jasper Mcmanus I25.10 Athscl heart Of Rubén Morrison, disease of [facility] [place] coronary artery w/o ang pctrs E78.5 Hyperlipidemia, unspecified I35.0 Nonrheumatic aortic (valve) stenosis I73.9 Peripheral vascular disease, unspecified I10 Essential (primary) hypertension I25.6 Silent myocardial ischemia F17.201 Nicotine dependence, unspecified, in remission Office Visit 12/06/2017 8:30a [place] Mickey Rajput, I21.4 Non-St elevation gail Abraham MD (Nstemi) Hospitalists myocardial infarction N30.00 Acute cystitis without hematuria R41.82 Altered mental status, unspecified J44.1 Chronic obstructive pulmonary disease w (acute) exacerbation Office Visit 12/06/2017 3:58p [facility] Cecilia Rendon I21.A1 Myocardial Of Inspecting Engineer AT [facility] MD Bam, infarction type 2 FACC, FSCAI I25.10 Athscl heart disease of [place] coronary artery w/o ang pctrs Office Visit 12/05/2017 8:29a [place] Mickey Rajput, I21.4 Non-St elevation gail Abraham MD (Nstemi) Hospitalists myocardial infarction N30.00 Acute cystitis without hematuria R41.82 Altered mental status, unspecified I10 Essential (primary) hypertension Office Visit 12/04/2017 8:28a [place] Mickey Rajput I21.4 Non-St elevation gail Abraham MD (Nstemi) Hospitalists myocardial infarction N30.00 Acute cystitis without hematuria R41.82 Altered mental status, unspecified I10 Essential (primary) hypertension Office Visit 12/04/2017 4:00p [facility] Alex Lynne I24.9 Acute ischemic Of Rubén Elizabeth M.D. heart disease, unspecified Office Visit 12/03/2017 1:11p [facility] Alex Lynne I24.9 Acute ischemic Of Rubén Elizabeth M.D. heart disease, unspecified I35.0 Nonrheumatic aortic (valve) stenosis Office Visit 12/03/2017 [facility] Payam R41.82 Altered mental 8:26a Assoc,pc Nathan, N.P. 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 knee M25.562 Pain in left knee Office Visit 04/02/2015 4:00p [facility] Alex Lynne 443.9 Peripheral Of Rubén Elizabeth M.D. Vascular Disease Unspec 411.1 Coronary Syndrome Intermediate Office Visit 02/18/2015 [facility] Nghia 590.80 Pyelonephritis 7:26a Assoc,gail Agudelo M.D. Unspec Hospitalists 443.9 Peripheral Vascular Disease Unspec 557.9 Vascular Insufficiency Of Intestine Unspecified 995.90 Systemic Inflammatory Response Syndrome, Unspecified Office Visit 02/17/2015 [facility] Bryant Lynne 590.80 Pyelonephritis 9:22a For Infectious Yanira Damon Unspec Diseases V45.72 Acquired Absence Of Intestine (Large) (Small) Office Visit 02/17/2015 [facility] Suzie 590.80 Pyelonephritis 7:25a Assoc,gail Barlow M.D. Unspec Hospitalists 443.9 Peripheral Vascular Disease Unspec 557.9 Vascular Insufficiency Of Intestine Unspecified 995.90 Systemic Inflammatory Response Syndrome, Unspecified Office Visit 02/16/2015 7:25a [facility] Suzie 443.9 Peripheral Assocgail M.D. Vascular Disease Hospitalists Unspec 496 COPD Airway Obstruction Chronic Not Class Elsewhere 995.90 Systemic Inflammatory Response Syndrome, Unspecified 780.97 Altered Mental Status Office Visit 02/16/2015 [facility] Bryant Lynne 780.62 Postprocedural 9:17a For Infectious Yanira Damon Fever Diseases 780.09 Consciousness Alteration Other V45.72 Acquired Absence Of Intestine (Large) (Small) 791.9 Urine Examination Other Nonspecific Findings 305.1 Tobacco Use Disorder 443.9 Peripheral Vascular Disease Unspec Office Visit 02/15/2015 7:23a [facility] Payam 443.9 Peripheral Assocgail, N.PMarcia Vascular Disease Hospitalists Unspec 496 COPD Airway Obstruction Chronic Not Class Elsewhere 780.97 Altered Mental Status 995.90 Systemic Inflammatory Response Syndrome, Unspecified Office Visit 01/10/2015 [facility] Viviane, 557.9 Vascular 10:01a gail Abraham D.O. Insufficiency Of Hospitalists Intestine Unspecified 557.1 Vascular Insufficiency Of Intestine Chronic 458.9 Hypotension Unspec 286.9 Coagulation Defects Other & Unspec Office Visit 09/11/2013 10:15a Neurosurgery Abdias Brannon, 721.0 Spondylosis Services Of [facility] M.D. Cervical W/O Myelopathy Office Visit 07/31/2013 10:00a Neurosurgery Abdias Brannon, 721.0 Spondylosis [facility] M.D. Cervical W/O Myelopathy 721.0 Spondylosis Cervical W/O Myelopathy 721.0 Spondylosis Cervical W/O Myelopathy Office Visit 11/01/2011 9:00a Unique Bautista.2 Shoulder Region Services Of C.M.A. M.D. Affections Other Not Elsewhere Class Office Visit 09/14/2011 9:00a Arminda Bautista6.2 Shoulder Region Services Of C.M.A. M.D. Affections Other Not Elsewhere Class Office Visit 08/01/2011 11:00a Unique Bautista.2 Shoulder Region Services Of C.M.A. M.D. Affections [...] Upper Arm Unspec Office Visit 12/26/2010 11:15a Unique Bautista.2 Shoulder Region Services Of C.M.A. M.D. Affections [...] Howie Borrego 719.41 Pain Joint Services [facility] Yanira Boss Shoulder Region 305.1 Tobacco Use Disorder Plan of Treatment Future Appointment(s):10/30/2018 10:30 am - Vi Allen M.D. at [facility]10/15/2018 11:45 am - Jasper Morrison DO FACC at [facility]10/10/2018 - Jasper Earl MD, FACSK55.069 Acute infarction of intestine, part and extent unspecifiedFollow up:As neededInstructions: Continue abdominal binder for 2 more weeks during ppodzpdJ66.1 Incisional hernia with gangrene
[2018-10-17 16:04] LABS: Albumin/Globulin Ratio 1.3 (1-3); BUN/Creatinine Ratio 12.9 (8-20); Calcium 9.5 mg/dL (8.6-10.3); Globulin 3.2 g/dL (2-4); Potassium 3.9 mmol/L (3.5-5.0); Total Bilirubin 0.7 mg/dL (0.2-1.0); Total Protein 7.2 g/dL (6.4-8.9)
[2018-10-17] MEDS ORDERED: Acetaminophen TAB* 325 MG PO PRN (16:37)
[2018-10-17] MEDS ORDERED: Al Hydrox/Mg Hydrox/Simet LIQ* 30 ML UDC PO PRN (16:37)
[2018-10-17] MEDS ORDERED: Nitroglycerin TAB 0.4 MG* 0.4 MG TAB SL PRN (16:42)
[2018-10-17] MEDS ORDERED: Vancomycin(*) 1,000 MG in NS 0.9% 250 ML* 250 ML IVPB ONE (16:44)
[2018-10-17] MEDS ORDERED: Vancomycin(*) 0 MG in NS 0.9% 250 ML* 250 ML IVPB SCH ×4 (17:00)
[2018-10-17] MEDS ORDERED: NS 0.9% 1000 ML* 2,000 ML IV ONE (17:16)
[2018-10-17] MEDS ORDERED: Vancomycin per Pharmacy* NOTE FOLLOW UP PRN (17:28)
[2018-10-17] MEDS: Vancomycin(*) 1,250 MG in NS 0.9% 250 ML* 250 ML IVPB SCH (18:34)
--- NOTE | 2018-10-17 20:08 | HP ---
HISTORY AND PHYSICAL: ADDENDUM: I have confirmed with Linda's daughter, Yaima, that she wishes to be full code. [id number]/[facility] #: [id number] MTDD
[2018-10-17] MEDS: Montelukast Sodium TAB* 10 MG PO SCH (20:19)
[2018-10-17] MEDS: Sertraline* 100 MG TAB PO SCH (20:20)
--- NOTE | 2018-10-17 21:18 | HP ---
ADDENDUM NOW INCLUDED ON THIS REPORT CC: Dr. Parmar; Dr. Earl; Dr. Jasper Morrison * HISTORY AND PHYSICAL: DATE OF ADMISSION: 10/17/18 TIME OF ADMISSION: 5 p.m. CHIEF COMPLAINT: Confusion. HISTORY OF PRESENT ILLNESS: This is a 63-year-old female with a complicated past medical history including COPD, coronary artery disease, peripheral vascular disease, and a recent incarcerated abdominal hernia, who presented to the emergency department today from [facility] when she was found to be confused. Her daughter, Yaima, is here with her and states that she talked to Linda at 1 p.m. and she seemed in her usual state of health. Then at 2 p.m. , she was trying to reach her by phone and could not. Then, [employer] called her and said that they found her wandering outside in the cold, so they called EMS. Linda denies shortness of breath, chest pain, but she does complain of some recent subjective fevers and chills, and she thinks she has had some diarrhea over the last week, but Yaima also provide some of the history as Linda is confused. Yaima explains that Linda gets confused every time she has an infection and I know that in her recent admission, she was noted to be septic due to the incarcerated hernia and she had an encephalopathy related to that. In the emergency department, she was found to have a fever to 104 and was placed on BiPAP for hypoxia and increased work of breathing and we were asked to evaluate for admission. A chest x-ray showed an infiltrate and she was treated with Zosyn and BiPAP. PAST MEDICAL HISTORY: Coronary artery disease with a recent stent; peripheral vascular disease; COPD, on 2 L at home O2 at night; anxiety; recent incarcerated abdominal hernia, status post ex lap on 09/29/18; chronic pain syndrome due to cervical spine disease; SMA stents; hypertension; hypothyroidism ; and depression. ALLERGIES: GABAPENTIN. FAMILY HISTORY: Not pertinent. SOCIAL HISTORY: This is provided by her daughter. She is a former smoker, former alcohol abuser and she lives at [facility]. HEALTHCARE PROXY: Her daughter, Yaima. REVIEW OF SYSTEMS: As per the HPI. Remainder of the 14-point review of systems is negative. She notes that her abdominal incision is healing well and she has not noticed any redness or drainage around it. PHYSICAL EXAMINATION VITAL SIGNS: Temperature of 101.8, heart rate 108, respiratory rate 19, pulse ox 90% on 6 L, blood pressure 126/69. Of note, her pulse ox also just dropped to the mid 80s on 6 L, so she has been placed back on BiPAP. HEENT: Pupils equal, round, and reactive to light. No nuchal rigidity. Oral mucosa is moist. NECK: No JVP. No adenopathy. LUNGS: With diffuse coarse rhonchi. CHEST: Tachycardic. No murmurs. ABDOMEN: The midline incision has Steri-Strips over it. The incision is clean. There is no surrounding erythema. She has mild tenderness to deep palpation of left lower quadrant, but nowhere else. She has no CVA tenderness. EXTREMITIES: No edema, rashes, or ulcers. NEUROLOGIC: She thinks she is at [facility]. She does not know the year, but she knows her name and her daughter. Her strength is 5/ 5 in all extremities. DIAGNOSTIC STUDIES: Chest x-ray shows small right basilar infiltrate. EKG shows sinus tachycardia with a normal axis, normal intervals. No ST or T- wave changes. LABORATORY DATA: White blood cells 14.6, hemoglobin 12.0, platelets 293. INR 0.95. AB.43/41/230. Sodium 137, potassium 3.9, chloride 101, bicarb 30, creatinine 0.7, lactic acid 1.0. Urinalysis is pending. ASSESSMENT AND PLAN: This is a 63-year-old female with history of chronic obstructive pulmonary disease, coronary artery disease, peripheral vascular disease, and recent exploratory laparotomy, who presents to the emergency department with confusion and is found to have a fever and leukocytosis and an infiltrate on her chest x-ray. 1. Sepsis: She likely has a pulmonary source; however, I also cannot rule out the urinary source as she has history of frequent urinary tract infections and no urinalysis has been done. The urinalysis is pending. I am treating her empirically for healthcare-associated pneumonia since she was just discharged on 10/05/18. She has received Zosyn in the emergency department. I am adding vancomycin to treat healthcare-associated infection. I am ordering a sputum culture. Blood cultures have already been ordered and I am ordering volume resuscitation. 2. Acute hypoxic respiratory failure: She is currently requiring BiPAP. She would be willing to be intubated should she need. This also supports the pulmonary etiology of her sepsis. Of course, a pulmonary embolism should also be on the differential given her recent hospitalization and perioperative status. However, her fever and leukocytosis suggest an infectious etiology, though we should keep pulmonary embolism on the differential. 3. Chronic obstructive pulmonary disease, on 2 L of nocturnal home O2. I am ordering p.r.n. nebulizers. 4. Coronary artery disease, status post percutaneous coronary intervention in November. I am continuing her Lipitor, aspirin, and Plavix. 5. Chronic pain syndrome: Continue Percocet. 6. Hypertension: I am holding her lisinopril in the setting of sepsis. I am holding her metoprolol and Cardizem as well in the setting of sepsis. It should be noted that she did have a history of atrial fibrillation in the setting of acute illness on last admission and these may need to be added back. 7. Peripheral vascular disease: Continue aspirin, Plavix, and statin. 8. Recent exploratory laparotomy. The incision is well healed and I do not believe this is a site of infection. 9. DVT prophylaxis: Heparin subcu. 10. Diet: Unrestricted. 11. Disposition: Ms. Jiménez is being admitted to the ICU requiring BiPAP. ADDENDUM: I have confirmed with Linda's daughter, Yaima, that she wishes to be full code. [id number] #: [id number] #: [id number] MTDD
[2018-10-17] MEDS: Atorvastatin* 40 MG TAB PO SCH (21:49)
[2018-10-17] MEDS: Pregabalin CAP(*) 25 MG PO SCH (21:50)
[2018-10-17] MEDS: oxyCODONE/Acetamin 5/325 MG* TAB PO SCH (21:50)
[2018-10-17] MEDS: Piperacillin/Tazobac ADVAN(*) 3.375 GM in NS 0.9% 100 ML* 100 ML IVPB SCH (22:02)
[2018-10-17] MEDS: NS 0.9% 1000 ML* 1,000 ML IV SCH (22:03)
[2018-10-17] MEDS: Heparin VIAL(*) 5000 UNITS/ML VIAL (FIVE THOUSAND) SUBCUT SCH (22:12)
[2018-10-18 04:38] LABS: ABS Basophils 0 10^3/ul (0-0.2); ABS Eosinophils 0 10^3/ul (0-0.6); ABS Lymphocytes 0.7 10^3/ul (1.0-4.8); ABS Monocytes 0.5 10^3/ul (0-0.8); ABS Neutrophils 14.8 10^3/ul (1.5-7.7); ABS Nucleated RBC 0 10^3/ul; Eosinophil % 0 %; Hematocrit 33 % (35-47); Hemoglobin 10.6 g/dl (12.0-16.0); Lymphocyte % 4.1 %; Mean Corpuscular HGB Conc 32 g/dl (31-36); Mean Corpuscular Hemoglobin 30 pg (27-31); Mean Corpuscular Volume 93 fL (80-97); Mean Platelet Volume 8.4 fL (7.4-10.4); Nucleated Red Blood Cells % 0; Platelet Count 217 10^3/ul (150-450); Red Cell Distribution Width 14 % (10.5-15)
[2018-10-18 04:53] LABS: BUN/Creatinine Ratio 19.6 (8-20); Calcium 8.4 mg/dL (8.6-10.3); EGFR Non-African American 108.6 (>60); Potassium 3.7 mmol/L (3.5-5.0)
[2018-10-18] MEDS: Piperacillin/Tazobac ADVAN(*) 3.375 GM in NS 0.9% 100 ML* 100 ML IVPB SCH ×3 (05:21→23:10)
[2018-10-18] MEDS: Levothyroxine TAB* 75 MCG TAB PO SCH (06:12)
[2018-10-18] MEDS: Vancomycin(*) 1,250 MG in NS 0.9% 250 ML* 250 ML IVPB SCH ×2 (06:12→19:39)
[2018-10-18] MEDS: ALPRAZolam TAB* 0.25 MG PO PRN ×2 (06:17→22:59)
[2018-10-18] MEDS: Heparin VIAL(*) 5000 UNITS/ML VIAL (FIVE THOUSAND) SUBCUT SCH ×3 (07:49→22:17)
[2018-10-18] MEDS: oxyCODONE/Acetamin 5/325 MG* TAB PO SCH ×3 (08:06→20:45)
[2018-10-18] MEDS: Pregabalin CAP(*) 25 MG PO SCH ×3 (08:07→20:44)
[2018-10-18] MEDS ORDERED: Metoprolol Succinate XL TAB* 25 MG PO SCH (09:00)
[2018-10-18] MEDS: Aspirin EC TAB* 81 MG TAB.EC PO SCH (09:11)
[2018-10-18] MEDS: Clopidogrel TAB* 75 MG PO SCH (09:12)
[2018-10-18] MEDS ORDERED: Calcium Gluconate INJ* 2 GM in NS 0.9% 100 ML* 100 ML IV ONE (10:30)
[2018-10-18 11:04] LABS: Urine Appearance Clear; Urine Bacteria 1+ (Absent); Urine Bilirubin Negative (Negative); Urine Blood 1+ (Negative); Urine Color Straw; Urine Glucose Negative (Negative); Urine Ketones Negative (Negative); Urine Nitrite Negative (Negative); Urine Protein Negative (Negative); Urine Red Blood Cell Trace(0-2/hpf) (Absent); Urine Urobilinogen Negative (Negative); Urine White Blood Cell Trace(0-5/hpf) (Absent)
[2018-10-18] MEDS: NS 0.9% 1000 ML* 1,000 ML IV SCH (11:53)
[2018-10-18] MEDS: methylPREDNISolone SOD 40 MG* 1 ML VIAL IV SCH (12:49)
[2018-10-18] MEDS ORDERED: Iohexol 300* (CONTRAST) 10 ML SDV IV ONE (12:51)
[2018-10-18] MEDS: Montelukast Sodium TAB* 10 MG PO SCH (19:40)
[2018-10-18] MEDS: Sertraline* 100 MG TAB PO SCH (19:40)
--- NOTE | 2018-10-18 20:02 | PN ---
Subjective Date of Service: 10/18/18 Interval History: Pt seen and examined. Meds and labs reviewed. Discussed case w/Dr. Wadsworth and mentioned that she has had hx of pre-syncopal episodes/syncopal episodes in the past. CC: LLQ pain ROS: Denied CONKLIN/dizziness, F/C, N/V, CP, SOB, increased cough, sputum production , abd pain, diarrhea, constipation, dysuria, myalgias, arthralgias, throat pain , and new skin lesions. The rest of the 14 point ROS are unremarkable. PHYSICAL EXAM: GEN APPEARANCE: Awake, not in acute distress HEENT: NC/AT, PERRLA, moist oral mucosa, (-) throat erythema NECK: Soft, supple, (-) cervical LAD, (-)JVD HEART: S1S2 WNL, RRR, No MRG CHEST: CTA, BL, GAE, No W/R/R ABD: Soft, ND/NT, NABS 4x Q EXT: No C/C/E SKIN: Warm to touch PSYCH: No active psychosis, hallucinations, depression, SI/HI Objective Active Medications: Acetaminophen (Tylenol Tab*) 650 mg PO Q4H PRN PRN Reason: FEVER/PAIN Al Hydrox/Mg Hydrox/Simethicone (Maalox Plus*) 30 ml PO Q6H PRN PRN Reason: INDIGESTION Albuterol/Ipratropium (Duoneb (Albuterol 2.5 Mg/Ipratropium 0.5 Mg)) 1 neb INH [id number] AWAKE PRN PRN Reason: sob/wheexing Alprazolam (Xanax Tab*) 0.25 mg PO Q6H PRN PRN Reason: ANXIETY Last Admin: 10/18/18 06:17 Dose: 0.25 mg Aspirin (Aspirin Ec Tab*) 81 mg PO QAM [facility] Last Admin: 10/18/18 09:11 Dose: 81 mg Atorvastatin Calcium (Lipitor*) 40 mg PO BEDTIME [facility] Last Admin: 10/17/18 21:49 Dose: Not Given Clopidogrel Bisulfate (Plavix Tab*) 75 mg PO QAM [facility] Last Admin: 10/18/18 09:12 Dose: 75 mg Cyclobenzaprine HCl (Flexeril Tab*) 10 mg PO TID PRN PRN Reason: SPASMS Heparin Sodium (Porcine) (Heparin Vial(*)) 5,000 units SUBCUT Q8HR [facility] Last Admin: 10/18/18 15:39 Dose: 5,000 units Piperacillin Sod/Tazobactam (Sod 3.375 gm/ Sodium Chloride) 100 mls @ 25 mls/ hr IVPB Q8H [facility] Last Admin: 10/18/18 14:28 Dose: 25 mls/hr Vancomycin HCl 1,250 mg/ (Sodium Chloride) 250 mls @ 166.667 mls/hr IVPB 0630, 1830 [facility] Last Admin: 10/18/18 19:39 Dose: 166.667 mls/hr Sodium Chloride (Ns 0.9% 1000 Ml*) 1,000 mls @ 75 mls/hr IV PER RATE [facility] Last Admin: 10/18/18 11:53 Dose: 75 mls/hr Levothyroxine Sodium (Synthroid Tab*) 75 mcg PO 0600 [facility] Last Admin: 10/18/18 06:12 Dose: 75 mcg Methylprednisolone Sodium Succinate (Solu-Medrol 40 Mg) 40 mg IV DAILY [facility] Last Admin: 10/18/18 12:49 Dose: 40 mg Montelukast Sodium (Singulair Tab*) 10 mg PO QPM [facility] Last Admin: 10/18/18 19:40 Dose: 10 mg Nitroglycerin (Nitroglycerin Tab 0.4 Mg*) 0.4 mg SL Q5M PRN PRN Reason: ANGINA Oxycodone/Acetaminophen (Percocet 5/325 Tab*) 1 tab PO TID [facility] Last Admin: 10/18/18 15:38 Dose: 1 tab Pharmacy Consult (Vancomycin Per Pharmacy*) 1 note FOLLOW UP . PRN PRN Reason: PER PROTOCOL Pharmacy Profile Note (Vancomycin Trough Check) 1 note FOLLOW UP 0630 ONE Stop: 10/19/18 06:31 Pregabalin (Lyrica Cap(*)) 50 mg PO TID [facility] Last Admin: 10/18/18 15:38 Dose: 50 mg Sertraline HCl (Zoloft*) 200 mg PO QPM [facility] Last Admin: 10/18/18 19:40 Dose: 200 mg Vital Signs - 8 hr 10/18/18 10/18/18 10/18/18 12:00 14:41 15:22 Temperature 96 F 97.8 F Pulse Rate 92 95 109 Respiratory 23 20 16 Rate Blood Pressure 166/76 169/84 (mmHg) O2 Sat by Pulse 89 96 99 Oximetry 10/18/18 10/18/18 15:38 19:09 Temperature 97.8 F Pulse Rate 106 Respiratory 22 20 Rate Blood Pressure 163/84 (mmHg) O2 Sat by Pulse 98 Oximetry Oxygen Devices in Use Now: Nasal Cannula Result Diagrams: 10/18/18 04:25 10/18/18 04:25 Microbiology and Other Data: Microbiology 10/17/18 17:36 Aerobic Blood Culture - Preliminary Blood Venous No Growth Day 1 Anaerobic Blood Culture - Preliminary No Growth Day 1 10/17/18 15:15 Aerobic Blood Culture - Preliminary Blood Venous No Growth Day 1 Anaerobic Blood Culture - Preliminary No Growth Day 1 10/18/18 09:24 Gram Stain - Final Sputum 10/17/18 18:15 Nasal Screen MRSA (PCR) - Final Nasal Mrsa Not Detected 10/17/18 18:15 Influenza Types A,B Antigen - Final Nasopharyngeal Specimen received for Influenza A/B Molecular testing Assess/Plan/Problems-Billing Assessment: - Patient Problems (1) Sepsis Current Visit: No Status: Acute Comment: -Likely due to RM/RLL PNA on CXR---likely cause of acute hypoxic respiratory failure -Continue on Vancomycin and Zosyn -Continue to follow cultures at this time -Will place on rapid Solumedrol taper (2) COPD (chronic obstructive pulmonary disease) Current Visit: Yes Status: Acute Code(s): J44.9 - CHRONIC OBSTRUCTIVE PULMONARY DISEASE, UNSPECIFIED SNOMED Code(s): 52485234 Comment: -Continue current regimen -Not in acute exacerbation at this time (3) Leukocytosis Current Visit: Yes Status: Acute Code(s): D72.829 - ELEVATED WHITE BLOOD CELL COUNT, UNSPECIFIED SNOMED Code(s): 976034404 Comment: -Likely due to steroid regimen given in ED along with distress -Will continue watchful waiting (4) CAD (coronary artery disease) Current Visit: No Status: Acute Code(s): I25.10 - ATHSCL HEART DISEASE OF [place] CORONARY ARTERY W/O ANG PCTRS SNOMED Code(s): 39593028 Comment: -Continue ASA, atorvastatin, and Plavix (5) DVT prophylaxis Current Visit: No Status: Acute Priority: High Onset Date: 04/20/15 Code (s): EYO4507 - SNOMED Code(s): 646485043 Comment: -Continue Heparin SQq8H Status and Disposition: -For PT/OT eval -Will discuss possible syncopal/pre-syncopal w/u w/pt if interested in AM
[2018-10-18] MEDS: Atorvastatin* 40 MG TAB PO SCH (20:44)
[2018-10-19] MEDS: Heparin VIAL(*) 5000 UNITS/ML VIAL (FIVE THOUSAND) SUBCUT SCH ×3 (04:55→22:18)
[2018-10-19] MEDS: Levothyroxine TAB* 75 MCG TAB PO SCH (05:05)
[2018-10-19] MEDS: Piperacillin/Tazobac ADVAN(*) 3.375 GM in NS 0.9% 100 ML* 100 ML IVPB SCH ×3 (05:06→22:08)
[2018-10-19 06:12] LABS: Hematocrit 32 % (35-47); Hemoglobin 10.7 g/dl (12.0-16.0); Mean Corpuscular HGB Conc 33 g/dl (31-36); Mean Corpuscular Hemoglobin 31 pg (27-31); Mean Corpuscular Volume 91 fL (80-97); Mean Platelet Volume 8.4 fL (7.4-10.4); Platelet Count 222 10^3/ul (150-450); Red Blood Count 3.51 10^6/ul (4.00-5.40); Red Cell Distribution Width 14 % (10.5-15); White Blood Count 10.4 10^3/ul (3.5-10.8)
[2018-10-19 06:25] LABS: Vancomycin Trough 14.6 mcg/mL
[2018-10-19] MEDS ORDERED: Vancomycin Trough Check NOTE FOLLOW UP ONE (06:30)
[2018-10-19 06:31] LABS: Albumin 3.1 g/dL (3.2-5.2); Albumin/Globulin Ratio 1.1 (1-3); BUN/Creatinine Ratio 16.4 (8-20); Calcium 8.9 mg/dL (8.6-10.3); EGFR Non-African American 110.9 (>60); Globulin 2.8 g/dL (2-4); Magnesium 1.9 mg/dL (1.9-2.7); Phosphorus 2.7 mg/dL (2.5-5.0); Potassium 3.6 mmol/L (3.5-5.0); Total Bilirubin 0.4 mg/dL (0.2-1.0); Total Protein 5.9 g/dL (6.4-8.9)
[2018-10-19] MEDS: Albuterol/Ipratropium NEB.SOL* Albuterol 2.5 MG/Ipratropium 0.5 MG 3 ML INH PRN (07:25)
[2018-10-19] MEDS: methylPREDNISolone SOD 40 MG* 1 ML VIAL IV SCH (07:41)
[2018-10-19] MEDS: Vancomycin(*) 1,250 MG in NS 0.9% 250 ML* 250 ML IVPB SCH ×2 (07:41→17:58)
[2018-10-19] MEDS: oxyCODONE/Acetamin 5/325 MG* TAB PO SCH ×3 (07:46→22:02)
[2018-10-19] MEDS: Aspirin EC TAB* 81 MG TAB.EC PO SCH (07:46)
[2018-10-19] MEDS: Clopidogrel TAB* 75 MG PO SCH (07:46)
[2018-10-19] MEDS: Pregabalin CAP(*) 25 MG PO SCH ×3 (07:47→22:01)
--- NOTE | 2018-10-19 11:30 | PN ---
Subjective Date of Service: 10/19/18 Interval History: Discussed case w/family prior to preferred hand-off with Dr. Capone who will be following patient today. Objective Active Medications: Acetaminophen (Tylenol Tab*) 650 mg PO Q4H PRN PRN Reason: FEVER/PAIN Al Hydrox/Mg Hydrox/Simethicone (Maalox Plus*) 30 ml PO Q6H PRN PRN Reason: INDIGESTION Albuterol/Ipratropium (Duoneb (Albuterol 2.5 Mg/Ipratropium 0.5 Mg)) 1 neb INH [id number] AWAKE PRN PRN Reason: sob/wheexing Last Admin: 10/19/18 07:25 Dose: 1 neb Alprazolam (Xanax Tab*) 0.25 mg PO Q6H PRN PRN Reason: ANXIETY Last Admin: 10/18/18 22:59 Dose: 0.25 mg Aspirin (Aspirin Ec Tab*) 81 mg PO QAM [facility] Last Admin: 10/19/18 07:46 Dose: 81 mg Atorvastatin Calcium (Lipitor*) 40 mg PO BEDTIME [facility] Last Admin: 10/18/18 20:44 Dose: 40 mg Clopidogrel Bisulfate (Plavix Tab*) 75 mg PO QAM [facility] Last Admin: 10/19/18 07:46 Dose: 75 mg Cyclobenzaprine HCl (Flexeril Tab*) 10 mg PO TID PRN PRN Reason: SPASMS Heparin Sodium (Porcine) (Heparin Vial(*)) 5,000 units SUBCUT Q8HR [facility] Last Admin: 10/19/18 04:55 Dose: Not Given Piperacillin Sod/Tazobactam (Sod 3.375 gm/ Sodium Chloride) 100 mls @ 25 mls/ hr IVPB Q8H [facility] Last Admin: 10/19/18 05:06 Dose: 25 mls/hr Vancomycin HCl 1,250 mg/ (Sodium Chloride) 250 mls @ 166.667 mls/hr IVPB 0630, 1830 [facility] Last Admin: 10/19/18 07:41 Dose: 166.667 mls/hr Sodium Chloride (Ns 0.9% 1000 Ml*) 1,000 mls @ 75 mls/hr IV PER RATE [facility] Last Admin: 10/18/18 11:53 Dose: 75 mls/hr Levothyroxine Sodium (Synthroid Tab*) 75 mcg PO 0600 [facility] Last Admin: 10/19/18 05:05 Dose: 75 mcg Methylprednisolone Sodium Succinate (Solu-Medrol 40 Mg) 40 mg IV DAILY [facility] Last Admin: 10/19/18 07:41 Dose: 40 mg Montelukast Sodium (Singulair Tab*) 10 mg PO QPM [facility] Last Admin: 10/18/18 19:40 Dose: 10 mg Nitroglycerin (Nitroglycerin Tab 0.4 Mg*) 0.4 mg SL Q5M PRN PRN Reason: ANGINA Oxycodone/Acetaminophen (Percocet 5/325 Tab*) 1 tab PO TID [facility] Last Admin: 10/19/18 07:46 Dose: 1 tab Pharmacy Consult (Vancomycin Per Pharmacy*) 1 note FOLLOW UP . PRN PRN Reason: PER PROTOCOL Pregabalin (Lyrica Cap(*)) 50 mg PO TID [facility] Last Admin: 10/19/18 07:47 Dose: 50 mg Sertraline HCl (Zoloft*) 200 mg PO QPM [facility] Last Admin: 10/18/18 19:40 Dose: 200 mg Vital Signs - 8 hr 10/19/18 10/19/18 10/19/18 03:57 04:00 07:25 Temperature 97.8 F Pulse Rate 112 110 Respiratory 24 20 Rate Blood Pressure 181/91 164/84 (mmHg) O2 Sat by Pulse 95 97 Oximetry 10/19/18 10/19/18 10/19/18 07:46 07:47 07:50 Temperature Pulse Rate Respiratory 20 20 20 Rate Blood Pressure (mmHg) O2 Sat by Pulse Oximetry Oxygen Devices in Use Now: Nasal Cannula Result Diagrams: 10/19/18 05:39 10/19/18 05:39 Microbiology and Other Data: Microbiology 10/17/18 17:36 Aerobic Blood Culture - Preliminary Blood Venous No Growth Day 1 Anaerobic Blood Culture - Preliminary No Growth Day 1 10/17/18 15:15 Aerobic Blood Culture - Preliminary Blood Venous No Growth Day 1 Anaerobic Blood Culture - Preliminary No Growth Day 1 10/18/18 09:24 Gram Stain - Final Sputum 10/17/18 18:15 Nasal Screen MRSA (PCR) - Final Nasal Mrsa Not Detected 10/17/18 18:15 Influenza Types A,B Antigen - Final Nasopharyngeal Specimen received for Influenza A/B Molecular testing Assess/Plan/Problems-Billing Assessment: - Patient Problems (1) Sepsis Current Visit: No Status: Acute Comment: -Likely due to RM/RLL PNA on CXR---likely cause of acute hypoxic respiratory failure -Continue on Vancomycin and Zosyn -Continue to follow cultures at this time -Will place on rapid Solumedrol taper (2) COPD (chronic obstructive pulmonary disease) Current Visit: Yes Status: Acute Code(s): J44.9 - CHRONIC OBSTRUCTIVE PULMONARY DISEASE, UNSPECIFIED SNOMED Code(s): 58610613 Comment: -Continue current regimen -Not in acute exacerbation at this time (3) Leukocytosis Current Visit: Yes Status: Acute Code(s): D72.829 - ELEVATED WHITE BLOOD CELL COUNT, UNSPECIFIED SNOMED Code(s): 197073573 Comment: -Likely due to steroid regimen given in ED along with distress -Will continue watchful waiting (4) CAD (coronary artery disease) Current Visit: No Status: Acute Code(s): I25.10 - ATHSCL HEART DISEASE OF [place] CORONARY ARTERY W/O ANG PCTRS SNOMED Code(s): 33179580 Comment: -Continue ASA, atorvastatin, and Plavix (5) DVT prophylaxis Current Visit: No Status: Acute Priority: High Onset Date: 02/15/15 Code (s): [id number] - SNOMED Code(s): 154095591 Comment: -Continue Heparin SQq8H Status and Disposition: -For PT/OT eval -Will discuss possible syncopal/pre-syncopal w/u w/pt if interested in AM
--- NOTE | 2018-10-19 13:25 | PN ---
Subjective Date of Service: 10/19/18 Interval History: Patient denies chest pain or shortness of breath. Denies n/v/d. Denies abd pain. denies urinary frequency or urgency. Family History: Unchanged from Admission Social History: Unchanged from Admission Past Medical History: Unchanged from Admission Objective Active Medications: Acetaminophen (Tylenol Tab*) 650 mg PO Q4H PRN PRN Reason: FEVER/PAIN Al Hydrox/Mg Hydrox/Simethicone (Maalox Plus*) 30 ml PO Q6H PRN PRN Reason: INDIGESTION Albuterol/Ipratropium (Duoneb (Albuterol 2.5 Mg/Ipratropium 0.5 Mg)) 1 neb INH [id number] AWAKE PRN PRN Reason: sob/wheexing Last Admin: 10/19/18 07:25 Dose: 1 neb Alprazolam (Xanax Tab*) 0.25 mg PO Q6H PRN PRN Reason: ANXIETY Last Admin: 10/18/18 22:59 Dose: 0.25 mg Aspirin (Aspirin Ec Tab*) 81 mg PO QAM [facility] Last Admin: 10/19/18 07:46 Dose: 81 mg Atorvastatin Calcium (Lipitor*) 40 mg PO BEDTIME [facility] Last Admin: 10/18/18 20:44 Dose: 40 mg Clopidogrel Bisulfate (Plavix Tab*) 75 mg PO QAM [facility] Last Admin: 10/19/18 07:46 Dose: 75 mg Cyclobenzaprine HCl (Flexeril Tab*) 10 mg PO TID PRN PRN Reason: SPASMS Heparin Sodium (Porcine) (Heparin Vial(*)) 5,000 units SUBCUT Q8HR [facility] Last Admin: 10/19/18 04:55 Dose: Not Given Piperacillin Sod/Tazobactam (Sod 3.375 gm/ Sodium Chloride) 100 mls @ 25 mls/ hr IVPB Q8H [facility] Last Admin: 10/19/18 05:06 Dose: 25 mls/hr Vancomycin HCl 1,250 mg/ (Sodium Chloride) 250 mls @ 166.667 mls/hr IVPB 0630, 1830 [facility] Last Admin: 10/19/18 07:41 Dose: 166.667 mls/hr Sodium Chloride (Ns 0.9% 1000 Ml*) 1,000 mls @ 75 mls/hr IV PER RATE [facility] Last Admin: 10/18/18 11:53 Dose: 75 mls/hr Levothyroxine Sodium (Synthroid Tab*) 75 mcg PO 0600 [facility] Last Admin: 10/19/18 05:05 Dose: 75 mcg Lisinopril (Prinivil Tab*) 10 mg PO QAM [facility] Metoprolol Succinate (Toprol Xl Tab*) 25 mg PO DAILY [facility] Montelukast Sodium (Singulair Tab*) 10 mg PO QPM [facility] Last Admin: 10/18/18 19:40 Dose: 10 mg Nitroglycerin (Nitroglycerin Tab 0.4 Mg*) 0.4 mg SL Q5M PRN PRN Reason: ANGINA Oxycodone/Acetaminophen (Percocet 5/325 Tab*) 1 tab PO TID [facility] Last Admin: 10/19/18 07:46 Dose: 1 tab Pharmacy Consult (Vancomycin Per Pharmacy*) 1 note FOLLOW UP . PRN PRN Reason: PER PROTOCOL Prednisone (Deltasone Tab*) 40 mg PO DAILY [facility] Pregabalin (Lyrica Cap(*)) 50 mg PO TID [facility] Last Admin: 10/19/18 07:47 Dose: 50 mg Sertraline HCl (Zoloft*) 200 mg PO QPM [facility] Last Admin: 10/18/18 19:40 Dose: 200 mg Vital Signs - 8 hr 10/19/18 10/19/18 10/19/18 07:25 07:46 07:47 Temperature Pulse Rate 110 Respiratory 20 20 20 Rate Blood Pressure (mmHg) O2 Sat by Pulse 97 Oximetry 10/19/18 10/19/18 10/19/18 07:50 08:25 11:47 Temperature 97.6 F 97.4 F Pulse Rate 95 99 Respiratory 20 16 20 Rate Blood Pressure 154/80 182/99 (mmHg) O2 Sat by Pulse 98 97 Oximetry Oxygen Devices in Use Now: Nasal Cannula Appearance: alert, appears confortable sitting on the edge of the bed. Eyes: No Scleral Icterus, PERRLA Ears/Nose/Mouth/Throat: Clear Oropharnyx, Mucous Membranes Moist Neck: NL Appearance and Movements; NL JVP, Trachea Midline Respiratory: Symmetrical Chest Expansion and Respiratory Effort, - - few scattered exp wheezes on the right and diminshed t/o bilat Cardiovascular: NL Sounds; No Murmurs; No JVD Extremities: No Edema, No Clubbing, Cyanosis Skin: No Rash or Ulcers Neurological: Alert and Oriented x 3 Nutrition: Taking PO's Result Diagrams: 10/20/18 11:54 10/20/18 11:54 Microbiology and Other Data: Microbiology 10/17/18 17:36 Aerobic Blood Culture - Preliminary Blood Venous No Growth Day 1 Anaerobic Blood Culture - Preliminary No Growth Day 1 10/17/18 15:15 Aerobic Blood Culture - Preliminary Blood Venous No Growth Day 1 Anaerobic Blood Culture - Preliminary No Growth Day 1 10/18/18 09:24 Gram Stain - Final Sputum 10/17/18 18:15 Nasal Screen MRSA (PCR) - Final Nasal Mrsa Not Detected 10/17/18 18:15 Influenza Types A,B Antigen - Final Nasopharyngeal Specimen received for Influenza A/B Molecular testing Assess/Plan/Problems-Billing Assessment: 63 y.o female with hx of COPD and recent ventral hernia repair who presented with fever and confusion was admitted with sepsis and pneumonia - Patient Problems (1) Sepsis Current Visit: No Status: Acute Comment: - Likely due to RM/RLL PNA on CXR---likely cause of acute hypoxic respiratory failure - Continue Zosyn - Urine with klebsiella pneumoniae [phone], sen. report pending - Will change prednisone to PO starting tomorrow (2) PNA (pneumonia) Current Visit: No Status: Acute Priority: High Code(s): J18.9 - PNEUMONIA , UNSPECIFIED ORGANISM SNOMED Code(s): 573244929 Comment: Suspect this is cause of hypoxia continue abx, continue sterdoids and nebs, (3) Acute respiratory failure with hypoxia Current Visit: Yes Status: Acute Code(s): J96.01 - ACUTE RESPIRATORY FAILURE WITH HYPOXIA SNOMED Code(s): 68452955 Comment: resolving - Continues to require o2 via nasal cannula at 3 liters- will titrate to maintain o2 saturation above 92% - patient is o2 dependent at night with 2 liters (4) CAD (coronary artery disease) Current Visit: No Status: Acute Code(s): I25.10 - ATHSCL HEART DISEASE OF [place] CORONARY ARTERY W/O ANG PCTRS SNOMED Code(s): 53489193 Comment: -Continue ASA, atorvastatin, and Plavix (5) Elevated troponin Current Visit: No Status: Acute Priority: High Code(s): R74.8 - ABNORMAL LEVELS OF OTHER SERUM ENZYMES SNOMED Code(s): 773308017 Comment: suspect this is demand ischemia in setting of hypoxia and pna trop . -peaked at 0.15- now trending down (6) HLD (hyperlipidemia) Current Visit: No Status: Acute Priority: High Code(s): E78.5 - HYPERLIPIDEMIA, UNSPECIFIED SNOMED Code(s): 94264843 Comment: Statin (7) Hypothyroid Current Visit: No Status: Acute Priority: High Code(s): E03.9 - HYPOTHYROIDISM, UNSPECIFIED SNOMED Code(s): 42862166 Comment: continue synthroid (8) DVT prophylaxis Current Visit: No Status: Acute Priority: High Onset Date: 02/15/15 Code (s): FRI4605 - SNOMED Code(s): 747474273 Comment: -Continue Heparin SQq8H (9) Full code status Current Visit: No Status: Acute Priority: High Onset Date: 02/15/15 Code (s): Z78.9 - OTHER SPECIFIED HEALTH STATUS SNOMED Code(s): 272494620 Status and Disposition: -will discharge home when medically stable
[2018-10-19] MEDS: Lisinopril TAB* 10 MG PO SCH (13:27)
[2018-10-19] MEDS: Metoprolol Succinate XL TAB* 25 MG PO SCH (13:27)
[2018-10-19] MEDS: Sertraline* 100 MG TAB PO SCH (17:58)
[2018-10-19] MEDS: Montelukast Sodium TAB* 10 MG PO SCH (17:58)
[2018-10-19] MEDS: Cyclobenzaprine TAB* 10 MG PO PRN (17:58)
[2018-10-19] MEDS ORDERED: hydrALAZINE IV* 20 MG/ML VIAL IV SLOW PU PRN (20:12)
[2018-10-19] MEDS: Atorvastatin* 40 MG TAB PO SCH (22:02)
[2018-10-20] MEDS: Albuterol/Ipratropium NEB.SOL* Albuterol 2.5 MG/Ipratropium 0.5 MG 3 ML INH PRN (05:20)
[2018-10-20] MEDS: Levothyroxine TAB* 75 MCG TAB PO SCH (05:46)
[2018-10-20] MEDS: Piperacillin/Tazobac ADVAN(*) 3.375 GM in NS 0.9% 100 ML* 100 ML IVPB SCH ×3 (05:47→20:32)
[2018-10-20] MEDS: Cyclobenzaprine TAB* 10 MG PO PRN ×2 (05:50→17:48)
[2018-10-20] MEDS: Heparin VIAL(*) 5000 UNITS/ML VIAL (FIVE THOUSAND) SUBCUT SCH ×2 (05:56→13:24)
[2018-10-20] MEDS: Lisinopril TAB* 10 MG PO SCH (09:49)
[2018-10-20] MEDS: Pregabalin CAP(*) 25 MG PO SCH ×3 (09:49→20:33)
[2018-10-20] MEDS: Clopidogrel TAB* 75 MG PO SCH (09:50)
[2018-10-20] MEDS: oxyCODONE/Acetamin 5/325 MG* TAB PO SCH ×3 (09:51→20:32)
[2018-10-20] MEDS: Metoprolol Succinate XL TAB* 25 MG PO SCH (09:52)
[2018-10-20] MEDS: predniSONE TAB* 20 MG PO SCH (09:54)
[2018-10-20] MEDS: Aspirin EC TAB* 81 MG TAB.EC PO SCH (09:54)
[2018-10-20] MEDS: ALPRAZolam TAB* 0.25 MG PO PRN (10:41)
[2018-10-20] MEDS ORDERED: Metoprolol Tartrate IV* 1 MG/ML 5 ML VIAL IV ONE (11:00)
[2018-10-20 12:00] LABS: Hematocrit 36 % (35-47); Hemoglobin 11.8 g/dl (12.0-16.0); Mean Corpuscular HGB Conc 33 g/dl (31-36); Mean Corpuscular Hemoglobin 30 pg (27-31); Mean Corpuscular Volume 91 fL (80-97); Platelet Count 252 10^3/ul (150-450); Red Blood Count 3.93 10^6/ul (4.00-5.40); Red Cell Distribution Width 13 % (10.5-15); White Blood Count 9.1 10^3/ul (3.5-10.8)
[2018-10-20] MEDS ORDERED: Levalbuterol 1.25MG/0.5ML NEB INH SCH (12:00)
[2018-10-20 12:17] LABS: BUN/Creatinine Ratio 11.8 (8-20); Calcium 9.2 mg/dL (8.6-10.3); EGFR Non-African American 86.8 (>60); Magnesium 1.9 mg/dL (1.9-2.7); Potassium 3.6 mmol/L (3.5-5.0)
[2018-10-20] MEDS ORDERED: Potassium Chlor TAB* 10 MEQ TAB.ER PO ONE (13:00)
[2018-10-20] MEDS ORDERED: Diltiazem TAB* 30 MG PO ONE (13:00)
[2018-10-20 13:17] LABS: TSH (Thyroid Stimulating Horm) 0.21 mcIU/mL (0.34-5.60)
[2018-10-20] MEDS: Rivaroxaban TAB(*) 20 MG TAB PO SCH (13:41)
[2018-10-20] MEDS ORDERED: Levalbuterol 1.25MG/0.5ML NEB ONE (14:37)
[2018-10-20] MEDS: Levalbuterol 1.25MG/0.5ML NEB INH SCH ×2 (14:39→19:35)
[2018-10-20] MEDS: Sertraline* 100 MG TAB PO SCH (17:47)
[2018-10-20] MEDS: Montelukast Sodium TAB* 10 MG PO SCH (17:48)
[2018-10-20] MEDS: Atorvastatin* 40 MG TAB PO SCH (20:32)
--- NOTE | 2018-10-21 00:53 | PN ---
Subjective Date of Service: 10/20/18 Interval History: Patient reports that she feel slightly short of breath. denies fever or chills , denies n/v/d. Denies abd pain. Patient with episode of tachycardia today HR 140's found to be in a- fib - given metoprolol IV and cardizem po - converted back to SR Family History: Unchanged from Admission Social History: Unchanged from Admission Past Medical History: Unchanged from Admission Objective Active Medications: Acetaminophen (Tylenol Tab*) 650 mg PO Q4H PRN PRN Reason: FEVER/PAIN Al Hydrox/Mg Hydrox/Simethicone (Maalox Plus*) 30 ml PO Q6H PRN PRN Reason: INDIGESTION Albuterol/Ipratropium (Duoneb (Albuterol 2.5 Mg/Ipratropium 0.5 Mg)) 1 neb INH [id number] AWAKE PRN PRN Reason: sob/wheexing Last Admin: 10/20/18 05:20 Dose: 1 neb Alprazolam (Xanax Tab*) 0.25 mg PO Q6H PRN PRN Reason: ANXIETY Last Admin: 10/20/18 10:41 Dose: 0.25 mg Aspirin (Aspirin Ec Tab*) 81 mg PO QAM [facility] Last Admin: 10/20/18 09:54 Dose: 81 mg Atorvastatin Calcium (Lipitor*) 40 mg PO BEDTIME [facility] Last Admin: 10/20/18 20:32 Dose: 40 mg Clopidogrel Bisulfate (Plavix Tab*) 75 mg PO QAM [facility] Last Admin: 10/20/18 09:50 Dose: 75 mg Cyclobenzaprine HCl (Flexeril Tab*) 10 mg PO TID PRN PRN Reason: SPASMS Last Admin: 10/20/18 17:48 Dose: 10 mg Hydralazine HCl (Apresoline Iv*) 5 mg IV SLOW PU Q6H PRN PRN Reason: Systolic Bp Greater Than:180 Piperacillin Sod/Tazobactam (Sod 3.375 gm/ Sodium Chloride) 100 mls @ 25 mls/ hr IVPB Q8H [facility] Last Admin: 10/20/18 20:32 Dose: 25 mls/hr Levothyroxine Sodium (Synthroid Tab*) 75 mcg PO 0600 [facility] Last Admin: 10/20/18 05:46 Dose: 75 mcg Lisinopril (Prinivil Tab*) 10 mg PO QAM [facility] Last Admin: 10/20/18 09:49 Dose: 10 mg Metoprolol Succinate (Toprol Xl Tab*) 25 mg PO DAILY [facility] Last Admin: 10/20/18 09:52 Dose: 25 mg Montelukast Sodium (Singulair Tab*) 10 mg PO QPM [facility] Last Admin: 10/20/18 17:48 Dose: 10 mg Nitroglycerin (Nitroglycerin Tab 0.4 Mg*) 0.4 mg SL Q5M PRN PRN Reason: ANGINA Oxycodone/Acetaminophen (Percocet 5/325 Tab*) 1 tab PO TID [facility] Last Admin: 10/20/18 20:32 Dose: 1 tab Prednisone (Deltasone Tab*) 40 mg PO DAILY [facility] Last Admin: 10/20/18 09:54 Dose: 40 mg Pregabalin (Lyrica Cap(*)) 50 mg PO TID [facility] Last Admin: 10/20/18 20:33 Dose: 50 mg Rivaroxaban (Xarelto(*)) 20 mg PO DAILY [facility] Last Admin: 10/20/18 13:41 Dose: 20 mg Sertraline HCl (Zoloft*) 200 mg PO QPM [facility] Last Admin: 10/20/18 17:47 Dose: 200 mg Vital Signs - 8 hr 10/20/18 10/20/18 10/20/18 17:48 19:47 20:30 Temperature 98.3 F Pulse Rate 60 Respiratory 16 16 17 Rate Blood Pressure 114/59 (mmHg) O2 Sat by Pulse 98 Oximetry 10/20/18 10/20/18 20:32 20:33 Temperature Pulse Rate Respiratory 18 17 Rate Blood Pressure (mmHg) O2 Sat by Pulse Oximetry Oxygen Devices in Use Now: Nasal Cannula Appearance: alert no acute distress , lying in bed. Eyes: No Scleral Icterus Ears/Nose/Mouth/Throat: Clear Oropharnyx, Mucous Membranes Moist Neck: NL Appearance and Movements; NL JVP, Trachea Midline Respiratory: Symmetrical Chest Expansion and Respiratory Effort, - - diminshed t /o bilat Cardiovascular: NL Sounds; No Murmurs; No JVD, No Edema Abdominal: NL Sounds; No Tenderness; No Distention Extremities: No Edema, No Clubbing, Cyanosis Skin: No Rash or Ulcers Neurological: Alert and Oriented x 3 Nutrition: Taking PO's Result Diagrams: 10/20/18 11:54 10/20/18 11:54 Microbiology and Other Data: Microbiology 10/17/18 17:36 Aerobic Blood Culture - Preliminary Blood Venous No Growth Day 1 Anaerobic Blood Culture - Preliminary No Growth Day 1 10/17/18 15:15 Aerobic Blood Culture - Preliminary Blood Venous No Growth Day 1 Anaerobic Blood Culture - Preliminary No Growth Day 1 10/18/18 09:24 Gram Stain - Final Sputum 10/17/18 18:15 Nasal Screen MRSA (PCR) - Final Nasal Mrsa Not Detected 10/17/18 18:15 Influenza Types A,B Antigen - Final Nasopharyngeal Specimen received for Influenza A/B Molecular testing Assess/Plan/Problems-Billing Assessment: 63 y.o female with hx of COPD and recent ventral hernia repair who presented with fever and confusion was admitted with sepsis and pneumonia - Patient Problems (1) Sepsis Current Visit: No Status: Acute Comment: - Likely due to RM/RLL PNA on CXR---likely cause of acute hypoxic respiratory failure - Continue Zosyn - Urine with klebsiella pneumoniae [id number], sen. zosyn - Will continue prednisone PO (2) PNA (pneumonia) Current Visit: No Status: Acute Priority: High Code(s): J18.9 - PNEUMONIA , UNSPECIFIED ORGANISM SNOMED Code(s): 714547487 Comment: Suspect this is cause of hypoxia continue abx, continue sterdoids and nebs Continue Zosyn (3) Acute respiratory failure with hypoxia Current Visit: Yes Status: Acute Code(s): J96.01 - ACUTE RESPIRATORY FAILURE WITH HYPOXIA SNOMED Code(s): 68209903 Comment: resolving - Continues to require o2 via nasal cannula at 3 liters- will titrate to maintain o2 saturation above 92% - patient is o2 dependent at night with 2 liters (4) Atrial fibrillation with rapid ventricular response Current Visit: No Status: Acute Code(s): I48.91 - UNSPECIFIED ATRIAL FIBRILLATION SNOMED Code(s): 833005974915133 Comment: transient - converted with metprolol IV and cardizem PO Patient with a previous episode during her last admission that lasted less than 12 hours and she converted - will continue to monitor on tele - Chadvasc score of 4 givingher a high risk for stroke, hesbled score of 1 - given that this is the patients second recorded episode of a-fib this month i will place her on anticoagulation - xeralto - i have discussed the risks and benefits of the medication with the patient and her daughter and they have agreed to xeralto. - i will touch base with cardiology in the AM to get recommendation on stopping her asa or plavix (5) CAD (coronary artery disease) Current Visit: No Status: Acute Code(s): I25.10 - ATHSCL HEART DISEASE OF [place] CORONARY ARTERY W/O ANG PCTRS SNOMED Code(s): 19993350 Comment: -Continue ASA, atorvastatin, and Plavix (6) Elevated troponin Current Visit: No Status: Acute Priority: High Code(s): R74.8 - ABNORMAL LEVELS OF OTHER SERUM ENZYMES SNOMED Code(s): 157665999 Comment: suspect this is demand ischemia in setting of hypoxia and pna trop . -peaked at 0.15- now trending down (7) HLD (hyperlipidemia) Current Visit: No Status: Acute Priority: High Code(s): E78.5 - HYPERLIPIDEMIA, UNSPECIFIED SNOMED Code(s): 02436524 Comment: Statin (8) Hypothyroid Current Visit: No Status: Acute Priority: High Code(s): E03.9 - HYPOTHYROIDISM, UNSPECIFIED SNOMED Code(s): 16052215 Comment: continue synthroid (9) DVT prophylaxis Current Visit: No Status: Acute Priority: High Onset Date: 02/15/15 Code (s): EGY6353 - SNOMED Code(s): 631203558 Comment: -Continue Heparin SQq8H (10) Full code status Current Visit: No Status: Acute Priority: High Onset Date: 02/15/15 Code (s): Z78.9 - OTHER SPECIFIED HEALTH STATUS SNOMED Code(s): 946340879 Status and Disposition: -will discharge home when medically stable
[2018-10-21] MEDS: GuaiFENesin DM* 5 ML UDC PO PRN ×2 (01:59→09:33)
[2018-10-21] MEDS: Piperacillin/Tazobac ADVAN(*) 3.375 GM in NS 0.9% 100 ML* 100 ML IVPB SCH ×3 (04:20→21:54)
[2018-10-21] MEDS: Levothyroxine TAB* 75 MCG TAB PO SCH (07:02)
[2018-10-21] MEDS: Aspirin EC TAB* 81 MG TAB.EC PO SCH (09:23)
[2018-10-21] MEDS: Rivaroxaban TAB(*) 20 MG TAB PO SCH (09:23)
[2018-10-21] MEDS: Clopidogrel TAB* 75 MG PO SCH (09:23)
[2018-10-21] MEDS: Pregabalin CAP(*) 25 MG PO SCH ×3 (09:24→21:54)
[2018-10-21] MEDS: ALPRAZolam TAB* 0.25 MG PO PRN ×2 (09:24→17:53)
[2018-10-21] MEDS: Metoprolol Succinate XL TAB* 25 MG PO SCH (09:24)
[2018-10-21] MEDS: oxyCODONE/Acetamin 5/325 MG* TAB PO SCH ×3 (09:24→21:54)
[2018-10-21] MEDS: Lisinopril TAB* 10 MG PO SCH (09:24)
[2018-10-21] MEDS: predniSONE TAB* 20 MG PO SCH (09:24)
[2018-10-21] MEDS: Cyclobenzaprine TAB* 10 MG PO PRN (17:43)
[2018-10-21] MEDS: Sertraline* 100 MG TAB PO SCH (17:43)
[2018-10-21] MEDS: Montelukast Sodium TAB* 10 MG PO SCH (17:43)
[2018-10-21] MEDS: Atorvastatin* 40 MG TAB PO SCH (21:54)
--- NOTE | 2018-10-21 23:53 | PN ---
Subjective Date of Service: 10/21/18 Interval History: Patient reports that she is feeling better today. no palpitations, or shortness of breath. Ambulated in the hallway on RA o2 sats maintained greater than 92%. Denies n/v/d or abd pain. Denies chest pain. Spoke to Dr. Hodges from cardiology about asa, plavix and xarelto - recommended stopping plavix and continuing patient on xarelto and Asa. Family History: Unchanged from Admission Social History: Unchanged from Admission Past Medical History: Unchanged from Admission Objective Active Medications: Acetaminophen (Tylenol Tab*) 650 mg PO Q4H PRN PRN Reason: FEVER/PAIN Al Hydrox/Mg Hydrox/Simethicone (Maalox Plus*) 30 ml PO Q6H PRN PRN Reason: INDIGESTION Albuterol/Ipratropium (Duoneb (Albuterol 2.5 Mg/Ipratropium 0.5 Mg)) 1 neb INH [id number] AWAKE PRN PRN Reason: sob/wheexing Last Admin: 10/20/18 05:20 Dose: 1 neb Alprazolam (Xanax Tab*) 0.25 mg PO Q6H PRN PRN Reason: ANXIETY Last Admin: 10/21/18 17:53 Dose: 0.25 mg Aspirin (Aspirin Ec Tab*) 81 mg PO QAM [facility] Last Admin: 10/21/18 09:23 Dose: 81 mg Atorvastatin Calcium (Lipitor*) 40 mg PO BEDTIME [facility] Last Admin: 10/21/18 21:54 Dose: 40 mg Cyclobenzaprine HCl (Flexeril Tab*) 10 mg PO TID PRN PRN Reason: SPASMS Last Admin: 10/21/18 17:43 Dose: 10 mg Guaifenesin/Dextromethorphan (Robitussin Dm*) 10 ml PO Q6H PRN PRN Reason: NON PRODUCTIVE COUGH Last Admin: 10/21/18 09:33 Dose: 10 ml Hydralazine HCl (Apresoline Iv*) 5 mg IV SLOW PU Q6H PRN PRN Reason: Systolic Bp Greater Than:180 Piperacillin Sod/Tazobactam (Sod 3.375 gm/ Sodium Chloride) 100 mls @ 25 mls/ hr IVPB Q8H [facility] Last Admin: 10/21/18 21:54 Dose: 25 mls/hr Levothyroxine Sodium (Synthroid Tab*) 75 mcg PO 0600 [facility] Last Admin: 10/21/18 07:02 Dose: 75 mcg Lisinopril (Prinivil Tab*) 10 mg PO QAM [facility] Last Admin: 10/21/18 09:24 Dose: 10 mg Metoprolol Succinate (Toprol Xl Tab*) 25 mg PO DAILY [facility] Last Admin: 10/21/18 09:24 Dose: 25 mg Montelukast Sodium (Singulair Tab*) 10 mg PO QPM [facility] Last Admin: 10/21/18 17:43 Dose: 10 mg Nitroglycerin (Nitroglycerin Tab 0.4 Mg*) 0.4 mg SL Q5M PRN PRN Reason: ANGINA Oxycodone/Acetaminophen (Percocet 5/325 Tab*) 1 tab PO TID [facility] Last Admin: 10/21/18 21:54 Dose: 1 tab Prednisone (Deltasone Tab*) 40 mg PO DAILY [facility] Last Admin: 10/21/18 09:24 Dose: 40 mg Pregabalin (Lyrica Cap(*)) 50 mg PO TID [facility] Last Admin: 10/21/18 21:54 Dose: 50 mg Rivaroxaban (Xarelto(*)) 20 mg PO DAILY [facility] Last Admin: 10/21/18 09:23 Dose: 20 mg Sertraline HCl (Zoloft*) 200 mg PO QPM [facility] Last Admin: 10/21/18 17:43 Dose: 200 mg Vital Signs - 8 hr 10/21/18 10/21/18 10/21/18 17:43 17:53 19:25 Temperature 98.3 F Pulse Rate 61 Respiratory 18 18 16 Rate Blood Pressure 112/57 (mmHg) O2 Sat by Pulse 92 Oximetry 10/21/18 10/21/18 10/21/18 19:41 19:49 21:54 Temperature Pulse Rate Respiratory 18 18 14 Rate Blood Pressure (mmHg) O2 Sat by Pulse Oximetry Oxygen Devices in Use Now: Nasal Cannula Appearance: appears comfortabel sitting on the edge of the bed, no acute distress Eyes: No Scleral Icterus Ears/Nose/Mouth/Throat: Clear Oropharnyx, Mucous Membranes Moist Neck: NL Appearance and Movements; NL JVP, Trachea Midline Respiratory: Symmetrical Chest Expansion and Respiratory Effort, - - few scattered exp wheezes and rhonchi Cardiovascular: NL Sounds; No Murmurs; No JVD, No Edema Abdominal: NL Sounds; No Tenderness; No Distention Extremities: No Edema Skin: No Rash or Ulcers Neurological: Alert and Oriented x 3 Nutrition: Taking PO's Result Diagrams: 10/20/18 11:54 10/20/18 11:54 Microbiology and Other Data: Microbiology 10/17/18 17:36 Aerobic Blood Culture - Preliminary Blood Venous No Growth Day 1 Anaerobic Blood Culture - Preliminary No Growth Day 1 10/17/18 15:15 Aerobic Blood Culture - Preliminary Blood Venous No Growth Day 1 Anaerobic Blood Culture - Preliminary No Growth Day 1 10/18/18 09:24 Gram Stain - Final Sputum 10/17/18 18:15 Nasal Screen MRSA (PCR) - Final Nasal Mrsa Not Detected 10/17/18 18:15 Influenza Types A,B Antigen - Final Nasopharyngeal Specimen received for Influenza A/B Molecular testing Assess/Plan/Problems-Billing Assessment: 63 y.o female with hx of COPD and recent ventral hernia repair who presented with fever and confusion was admitted with sepsis and pneumonia - Patient Problems (1) Sepsis Current Visit: No Status: Acute Comment: - Likely due to RM/RLL PNA on CXR---likely cause of acute hypoxic respiratory failure - Continue Zosyn - Urine with klebsiella pneumoniae [id number], sen. zosyn - Will continue prednisone PO (2) PNA (pneumonia) Current Visit: No Status: Acute Priority: High Code(s): J18.9 - PNEUMONIA , UNSPECIFIED ORGANISM SNOMED Code(s): 483013551 Comment: Suspect this is cause of hypoxia continue abx, continue sterdoids and nebs Continue Zosyn (3) Acute respiratory failure with hypoxia Current Visit: Yes Status: Acute Code(s): J96.01 - ACUTE RESPIRATORY FAILURE WITH HYPOXIA SNOMED Code(s): 34337019 Comment: resolving - Continues to require o2 via nasal cannula at 2 liters- will titrate to maintain o2 saturation above 92% - patient is o2 dependent at night with 2 liters (4) Atrial fibrillation with rapid ventricular response Current Visit: No Status: Acute Code(s): I48.91 - UNSPECIFIED ATRIAL FIBRILLATION SNOMED Code(s): 255701640395557 Comment: transient - converted with metprolol IV and cardizem PO Patient with a previous episode during her last admission that lasted less than 12 hours and she converted with cardizem - was discharged with cardizem cd but daughter states she did not know she was cardizem and is not sure if patient was taking this medication at home. HR 60's to 90's today. will hold off restarting for now. - will continue to monitor on tele - Chadvasc score of 4 givingher a high risk for stroke, hesbled score of 1 - given that this is the patients second recorded episode of a-fib this month i will place her on anticoagulation - xarelto - i have discussed the risks and benefits of the medication with the patient and her daughter and they have agreed to xarelto. - spoke with cardiology today- recommended stopping plavix and continuing asa and xarelto - (5) CAD (coronary artery disease) Current Visit: No Status: Acute Code(s): I25.10 - ATHSCL HEART DISEASE OF [place] CORONARY ARTERY W/O ANG PCTRS SNOMED Code(s): 31403205 Comment: -Continue ASA, atorvastatin, metoprolol (6) Elevated troponin Current Visit: No Status: Acute Priority: High Code(s): R74.8 - ABNORMAL LEVELS OF OTHER SERUM ENZYMES SNOMED Code(s): 261018503 Comment: suspect this is demand ischemia in setting of hypoxia and pna trop . -peaked at 0.15- now trending down (7) HLD (hyperlipidemia) Current Visit: No Status: Acute Priority: High Code(s): E78.5 - HYPERLIPIDEMIA, UNSPECIFIED SNOMED Code(s): 54106547 Comment: Statin (8) Hypothyroid Current Visit: No Status: Acute Priority: High Code(s): E03.9 - HYPOTHYROIDISM, UNSPECIFIED SNOMED Code(s): 41082028 Comment: continue synthroid (9) UTI (urinary tract infection) Current Visit: No Status: Acute Comment: ESBL Klebsiella pneumoniae [id number] [phone] - multi drug resistance - susp. to meropenem, levaquin and zosyn- pharmacy called and recommended meropenem - patient is asymptomatic - will continue with zosyn for now (10) DVT prophylaxis Current Visit: No Status: Acute Priority: High Onset Date: 02/15/15 Code (s): XQG4111 - SNOMED Code(s): 926806843 Comment: -Continue Heparin SQq8H (11) Full code status Current Visit: No Status: Acute Priority: High Onset Date: 02/15/15 Code (s): Z78.9 - OTHER SPECIFIED HEALTH STATUS SNOMED Code(s): 295747371 Status and Disposition: -will discharge home when medically stable
[2018-10-22] MEDS: Levothyroxine TAB* 75 MCG TAB PO SCH (05:32)
[2018-10-22] MEDS: Piperacillin/Tazobac ADVAN(*) 3.375 GM in NS 0.9% 100 ML* 100 ML IVPB SCH ×3 (05:32→21:21)
[2018-10-22 06:01] LABS: Magnesium 2.2 mg/dL (1.9-2.7)
[2018-10-22 08:20] LABS: Free T4 0.81 ng/dL (0.61-1.12)
[2018-10-22] MEDS: GuaiFENesin DM* 5 ML UDC PO PRN (09:00)
[2018-10-22] MEDS: oxyCODONE/Acetamin 5/325 MG* TAB PO SCH ×3 (09:01→20:08)
[2018-10-22] MEDS: ALPRAZolam TAB* 0.25 MG PO PRN ×2 (09:02→23:06)
[2018-10-22] MEDS: Cyclobenzaprine TAB* 10 MG PO PRN (09:02)
[2018-10-22] MEDS: Metoprolol Tartrate TAB* 25 MG PO SCH (09:02)
[2018-10-22] MEDS: Aspirin EC TAB* 81 MG TAB.EC PO SCH ×2 (09:02→09:07)
[2018-10-22] MEDS: amLODIPine TAB* 5 MG PO SCH (09:03)
[2018-10-22] MEDS: predniSONE TAB* 20 MG PO SCH (09:03)
[2018-10-22] MEDS: Lisinopril TAB* 10 MG PO SCH (09:03)
[2018-10-22] MEDS: Pregabalin CAP(*) 25 MG PO SCH ×3 (09:03→20:08)
[2018-10-22] MEDS: Rivaroxaban TAB(*) 20 MG TAB PO SCH (09:04)
--- NOTE | 2018-10-22 10:50 | PN ---
Subjective Date of Service: 10/22/18 Interval History: Patient had headache when up to bathroom this AM, and BP ann to 200 systolic range. BP medications titrated, she is tolerating. Yesterday, metoprolol decreased due to bradycardia. Breathing is labored at times, feels SOB w/ exertion. Reports LT leg swelling. Family History: Unchanged from Admission Social History: Unchanged from Admission Past Medical History: Unchanged from Admission Objective Active Medications: Acetaminophen (Tylenol Tab*) 650 mg PO Q4H PRN PRN Reason: FEVER/PAIN Al Hydrox/Mg Hydrox/Simethicone (Maalox Plus*) 30 ml PO Q6H PRN PRN Reason: INDIGESTION Albuterol/Ipratropium (Duoneb (Albuterol 2.5 Mg/Ipratropium 0.5 Mg)) 1 neb INH [id number] AWAKE PRN PRN Reason: sob/wheexing Last Admin: 10/20/18 05:20 Dose: 1 neb Alprazolam (Xanax Tab*) 0.25 mg PO Q6H PRN PRN Reason: ANXIETY Last Admin: 10/22/18 09:02 Dose: 0.25 mg Amlodipine Besylate (Norvasc Tab*) 5 mg PO DAILY [facility] Last Admin: 10/22/18 09:03 Dose: 5 mg Aspirin (Aspirin Ec Tab*) 81 mg PO QAM [facility] Last Admin: 10/22/18 09:07 Dose: 81 mg Atorvastatin Calcium (Lipitor*) 40 mg PO BEDTIME [facility] Last Admin: 10/21/18 21:54 Dose: 40 mg Cyclobenzaprine HCl (Flexeril Tab*) 10 mg PO TID PRN PRN Reason: SPASMS Last Admin: 10/22/18 09:02 Dose: 10 mg Guaifenesin/Dextromethorphan (Robitussin Dm*) 10 ml PO Q6H PRN PRN Reason: NON PRODUCTIVE COUGH Last Admin: 10/22/18 09:00 Dose: 10 ml Hydralazine HCl (Apresoline Iv*) 5 mg IV SLOW PU Q6H PRN PRN Reason: Systolic Bp Greater Than:180 Last Admin: 10/22/18 06:58 Dose: 5 mg Piperacillin Sod/Tazobactam (Sod 3.375 gm/ Sodium Chloride) 100 mls @ 25 mls/ hr IVPB Q8H [facility] Last Admin: 10/22/18 05:32 Dose: 25 mls/hr Levothyroxine Sodium (Synthroid Tab*) 75 mcg PO 0600 [facility] Last Admin: 10/22/18 05:32 Dose: 75 mcg Lisinopril (Prinivil Tab*) 20 mg PO QAM [facility] Last Admin: 10/22/18 09:03 Dose: 20 mg Metoprolol Tartrate (Lopressor Tab*) 12.5 mg PO DAILY [facility] Last Admin: 10/22/18 09:02 Dose: 12.5 mg Montelukast Sodium (Singulair Tab*) 10 mg PO QPM [facility] Last Admin: 10/21/18 17:43 Dose: 10 mg Nitroglycerin (Nitroglycerin Tab 0.4 Mg*) 0.4 mg SL Q5M PRN PRN Reason: ANGINA Oxycodone/Acetaminophen (Percocet 5/325 Tab*) 1 tab PO TID [facility] Last Admin: 10/22/18 09:01 Dose: 1 tab Prednisone (Deltasone Tab*) 40 mg PO DAILY [facility] Last Admin: 10/22/18 09:03 Dose: 40 mg Pregabalin (Lyrica Cap(*)) 50 mg PO TID [facility] Last Admin: 10/22/18 09:03 Dose: 50 mg Rivaroxaban (Xarelto(*)) 20 mg PO DAILY [facility] Last Admin: 10/22/18 09:04 Dose: 20 mg Sertraline HCl (Zoloft*) 200 mg PO QPM [facility] Last Admin: 10/21/18 17:43 Dose: 200 mg Vital Signs - 8 hr 10/22/18 10/22/18 10/22/18 03:00 06:51 06:53 Temperature 36.8 C 36.8 C Pulse Rate 56 97 Respiratory 17 19 Rate Blood Pressure 146/75 210/113 202/100 (mmHg) O2 Sat by Pulse 96 96 Oximetry 10/22/18 10/22/18 10/22/18 07:26 08:00 08:29 Temperature Pulse Rate 88 106 Respiratory 16 Rate Blood Pressure 157/93 190/109 (mmHg) O2 Sat by Pulse 97 99 Oximetry 10/22/18 10:14 Temperature Pulse Rate 80 Respiratory Rate Blood Pressure 128/51 (mmHg) O2 Sat by Pulse 94 Oximetry Oxygen Devices in Use Now: Nasal Cannula Appearance: alert, no distress Eyes: No Scleral Icterus Ears/Nose/Mouth/Throat: Clear Oropharnyx Neck: No Thyroid Enlargement, Masses Respiratory: Clear to Auscultation Cardiovascular: RRR, - - 2/6 systolic murmur LUSB Abdominal: NL Sounds; No Tenderness; No Distention, No Hepatosplenomegaly Extremities: No Edema Skin: No Rash or Ulcers Neurological: Alert and Oriented x 3 Lines/Tubes/Other Access: Clean, Dry and Intact Peripheral IV Result Diagrams: 10/20/18 11:54 10/20/18 11:54 Microbiology and Other Data: Microbiology 10/20/18 04:20 Urine Streptococcus pneumoniae Ag Screen - Final Negative S. pneumo Antigen 10/20/18 04:20 Urine Legionella Urinary Antigen - Final Negative Legionella Antigen 10/18/18 10:50 Urine Urine Culture - Final Esbl Klebsiella Pneumoniae 10/18/18 09:24 Sputum Gram Stain - Final 10/18/18 09:24 Sputum Sputum Culture - Final Streptococcus Pneumoniae Normal Jennifer 10/17/18 18:15 Nasopharyngeal Influenza Types A,B Antigen - Final Specimen received for Influenza A/B Molecular testing 10/17/18 18:15 Nasal Nasal Screen MRSA (PCR) - Final Mrsa Not Detected 10/17/18 17:36 Blood Venous Aerobic Blood Culture - Preliminary 10/17/18 17:36 Blood Venous Anaerobic Blood Culture - Preliminary No Growth Day 4 No Growth Day 4 Assess/Plan/Problems-Billing Assessment: 63 y.o female with hx of COPD and recent ventral hernia repair who presented with fever and confusion was admitted with sepsis and pneumonia - Patient Problems (1) Pneumonia due to Streptococcus pneumoniae Current Visit: Yes Status: Acute Priority: High Code(s): J13 - PNEUMONIA DUE TO STREPTOCOCCUS PNEUMONIAE SNOMED Code(s): 252081561 Comment: - Initially had sepsis and resp failure, doing much better now - On day 5 Zosyn, could switch to PO tomorrow. (2) Atrial fibrillation with rapid ventricular response Current Visit: No Status: Acute Code(s): I48.91 - UNSPECIFIED ATRIAL FIBRILLATION SNOMED Code(s): 096384072970189 Comment: - paroxysmal a-fib, in NSR now w/ bursts of AF - has had cardiology input, now on aspirin and Xarelto - rate control adequate with current metoprolol (3) Hypertension Current Visit: Yes Status: Acute Priority: High Code(s): I10 - ESSENTIAL ( PRIMARY) HYPERTENSION SNOMED Code(s): 51382127 Comment: - BP very high and symptomatic - Added norvasc today, increased lisinopril, tolerating - should ambulate on current regimen, assess for response (4) Hypothyroid Current Visit: No Status: Acute Priority: Medium Code(s): E03.9 - HYPOTHYROIDISM, UNSPECIFIED SNOMED Code(s): 56873316 Comment: - TSH suppressed, is overtreated. - will reduce dose L-thyroxine - needs repeat TSH in 2 months Status and Disposition: needs continued inpatient stay due to severe HTN
[2018-10-22] MEDS: Sertraline* 100 MG TAB PO SCH (18:12)
[2018-10-22] MEDS: Montelukast Sodium TAB* 10 MG PO SCH (18:12)
[2018-10-22] MEDS: Atorvastatin* 40 MG TAB PO SCH (20:08)
[2018-10-23] MEDS: Piperacillin/Tazobac ADVAN(*) 3.375 GM in NS 0.9% 100 ML* 100 ML IVPB SCH (04:57)
[2018-10-23] MEDS ORDERED: Levothyroxine TAB* 125 MCG TAB PO SCH (06:00)
[2018-10-23] MEDS: Lisinopril TAB* 10 MG PO SCH (08:02)
[2018-10-23] MEDS: Rivaroxaban TAB(*) 20 MG TAB PO SCH (08:02)
[2018-10-23] MEDS: oxyCODONE/Acetamin 5/325 MG* TAB PO SCH (08:02)
[2018-10-23] MEDS: Aspirin EC TAB* 81 MG TAB.EC PO SCH (08:02)
[2018-10-23] MEDS: Metoprolol Tartrate TAB* 25 MG PO SCH (08:02)
[2018-10-23] MEDS: amLODIPine TAB* 5 MG PO SCH (08:02)
[2018-10-23] MEDS: predniSONE TAB* 20 MG PO SCH (08:02)
[2018-10-23] MEDS: Pregabalin CAP(*) 25 MG PO SCH (08:03)
[2018-10-23 08:45] VITALS: BP 135/94
--- NOTE | 2018-10-24 04:14 | DS ---
DISCHARGE SUMMARY: DATE OF ADMISSION: 10/17/18 DATE OF DISCHARGE: 10/23/18. ADMITTING PROVIDER: Eliz Mckeon DO PRIMARY CARE PHYSICIAN: Dr. Parmar. ATTENDING PHYSICIAN ON DAY OF DISCHARGE: Fredy Rajput MD PRINCIPAL DIAGNOSES: 1. Altered mental status (found wandering outside of her apartment); fever. 2. Sepsis secondary to extended spectrum beta lactamase klebsiella urinary tract infection and Streptococcus pneumoniae. 3. Atrial fibrination with rapid ventricular response. HISTORY OF PRESENT ILLNESS AND HOSPITAL COURSE: Linda Jiménez is a 63-year-old female with past medical history of COPD, CAD, peripheral vascular disease, recent incarcerated abdominal hernia, who was found to be altered and wandering outside of her apartment at [facility] on day of admission. Please see H and P of Dr. Eliz Mckeon for full details. She complains of subjective fevers and chills and possible diarrhea for last week. She was found to have a fever of 104.8, tachycardic to 120, tachypneic to 27, and in acute hypoxic respiratory failure requiring BiPAP and transferred to ICU and she continued to have altered mental status. She had a leucocytosis of 14,600. She got a chest x-ray, had left sided small right basal infiltrate and was started empirically on Zosyn and vancomycin for suspected healthcare associated pneumonia. She later did have CT abdomen and pelvis on 10/18/18, which demonstrated diverticulosis and fatty infiltration of the liver and atherosclerosis. Her cultures results only grew ESBL Klebsiella pneumoniae on the urine that was sensitive to Zosyn and Levaquin and a sputum culture that grew Streptococcus pneumoniae, which was pansensitive including to Levaquin. She had negative blood cultures, she defervesced. Course was also complicated by AFib with RVR and was later noted that she was recently diagnosed with AFib and started on Diltiazem 240 mg as an outpatient. She was started on Xarelto 20 and with recommendation to stop the Plavix that she is on for peripheral vascular disease . She recovered well, was hemodynamically stable for discharge back to [facility], she will continue physical therapy. She does have low TSH of 0.21 and total T3 of 70. Her levothyroxine was recommended to be reduced from 75 to 50 mcg daily. DISCHARGE MEDICATIONS: 1. Albuterol 1 puff inhale q.4 hours p.r.n. 2. Albuterol 1 puff inhale 4 times a day. 3. Alprazolam 0.25 mg p.o. q.6 hours p.r.n. 4. Aspirin 81 mg p.o. q.a.m. 5. Atorvastatin 40 mg p.o. at bedtime. 6. Budesonide 2 puffs inhale b.i.d. 7. Flexeril 10 mg p.o. t.i.d. 8. Diltiazem 240 mg p.o. daily. 9. Levofloxacin 750 mg p.o. daily for 2 tabs (new). 10. Levothyroxine 50 mcg p.o. daily (reduced dose from 75 mcg daily). 11. Lisinopril 10 mg p.o. q.a.m. 12. Metoprolol succinate 25 mg p.o. q.a.m. 13. Myrbetriq 50 mg p.o. q.a.m. 14. Singulair 10 mg p.o. q.p.m. 15. Nitroglycerine 0.4 mg sublingually q.5 minutes p.r.n. 16. Percocet 1 tab p.o. t.i.d. 17. Pravastatin 20 mg p.o. daily for 4 tabs (new). 18. Lyrica 50 mg p.o. t.i.d. 19. Xarelto 20 mg p.o. daily (new). 20. Sertraline 200 mg p.o. q.p.m. Her Plavix was stopped with the initiation of Xarelto. FOLLOWUP: She should follow up with Dr. Parmar within 7 days. TIME SPENT ON DISCHARGE: 40 minutes. [id number]/[facility] #: [id number] FERMÍN
== END 2018-10-23 11:45 | disposition home or self-care (01) | DRG 871 ==
LOC: ED 14:58 → ICU 16:37 → MEDTELE 10-18 12:22
PROVIDERS: ADMIT Internal Medicine; ATTEND Internal Medicine
DX: A41.9 Sepsis, unspecified organism (principal); J13 Pneumonia due to Streptococcus pneumoniae; J96.01 Acute respiratory failure with hypoxia; N39.0 Urinary tract infection, site not specified; B96.1 Klebsiella pneumoniae [K. pneumoniae] as the cause of diseases classified elsewhere; I48.0 Paroxysmal atrial fibrillation; Z99.81 Dependence on supplemental oxygen; I11.9 Hypertensive heart disease without heart failure; J44.9 Chronic obstructive pulmonary disease, unspecified; R41.82 Altered mental status, unspecified; I25.10 Atherosclerotic heart disease of native coronary artery without angina pectoris; I73.9 Peripheral vascular disease, unspecified; G89.4 Chronic pain syndrome; E03.9 Hypothyroidism, unspecified; E78.5 Hyperlipidemia, unspecified; F32.9 Major depressive disorder, single episode, unspecified; R74.8 Abnormal levels of other serum enzymes; Z88.8 Allergy status to other drugs, medicaments and biological substances; Z95.5 Presence of coronary angioplasty implant and graft; Z87.891 Personal history of nicotine dependence; Z79.02 Long term (current) use of antithrombotics/antiplatelets; Z79.01 Long term (current) use of anticoagulants; Z79.82 Long term (current) use of aspirin; Z79.899 Other long term (current) drug therapy; Z79.51 Long term (current) use of inhaled steroids
CPT/HCPCS: 36415; 71045; 74177; 80048; 80053; 80202; 81003; 81015; 82803; 83605; 83735; 83880; 84100; 84439; 84443; 84445; 84479; 84484; 85025; 85027; 85610; 85730; 87040; 87070; 87077; 87086; 87186; 87205; 87641; 87899; 93005; 94640; 94660; 99285; A9270-GY; G8978-GP-CJ; G8979-GP-CI; G8987-GO-CI; G8988-GO-CI; G8989-GO-CI; J0360; J0610; J1644; J2060; J2543; J2920; J2930; J3370; J3475; J3490; J7512; Q9967

== ENCOUNTER 2019-01-18 15:03 | Observation (INO) | payer MEDICARE ==
[2019-01-18] MEDS ORDERED: Ketorolac INJ* 30 MG/ML 1 ML VIAL IV PUSH ONE (15:40)
[2019-01-18] MEDS ORDERED: NS 0.9% 1000 ML** 1,000 ML IV ONE (15:40)
[2019-01-18] MEDS ORDERED: LORazepam INJ* 2 MG/ML 1 ML VIAL IV ONE (15:40)
--- NOTE | 2019-01-18 15:41 | ED ---
HPI Febrile Illness - HPI Summary HPI Summary: This patient is a 63 year old female brought in by ambulance to [facility] with a chief complaint of flu-like symptoms since 3 weeks ago, worsening this week. Patient states that she developed a cough this week as well as a persisting headache. The headache pain is described as squeezing around her temples. The pain is rated 10/10 in severity. Symptoms aggravated by nothing. Symptoms alleviated by nothing. Patient additionally reports cough, fever, chills, headache, dizziness. - History of Current Complaint Chief Complaint: EDFluSymptoms Time Seen by Provider: 01/18/19 15:08 Hx Obtained From: Patient Onset/Duration: Started Weeks Ago, Still Present Timing: Constant Temperature: 100.3 F Current Severity: Moderate Pain Intensity: 10 Pain Scale Used: 0-10 Numeric Aggravating Factors: Nothing Alleviating Factors: Nothing Associated Signs and Symptoms: Other: - cough, fever, chills, headache, dizziness - Additional Pertinent History Primary Care Physician: MEGHA - Allergy/Home Medications Allergies/Adverse Reactions: Allergies Allergy/AdvReac Type Severity Reaction Status Date / Time gabapentin AdvReac Severe Memory Verified 01/18/19 15:16 Issues Home Medications: Home Medications Levothyroxine TAB* [Synthroid TAB*] 75 mcg PO 0600 01/18/19 [History Confirmed 01/18/19] PMH/Surg Hx/FS Hx/Imm Hx Previously Healthy: No Endocrine/Hematology History: Reports: Hx Anticoagulant Therapy, Hx Thyroid Disease - Hypothyroid Denies: Hx Diabetes Cardiovascular History: Reports: Hx Angioplasty, Hx Coronary Artery Disease, Hx Deep Vein Thrombosis, Hx Hypercholesterolemia, Hx Hypertension, Hx Peripheral Vascular Disease, Other Cardiovascular Problems/Disorders - VASCULAR DISEASE ON LEGS AND ABD (PVD) Denies: Hx Pacemaker/ICD Respiratory History: Reports: Hx Asthma, Hx Chronic Obstructive Pulmonary Disease (COPD) - pt reports on 2L O2 when laying down at home, Hx Pneumonia - 2017, Hx Seasonal Allergies, Other Respiratory Problems/Disorders - COLLAPSED LUNG 30 YRS AGO GI History: Reports: Hx Diverticulosis - 09/29/18, Hx Gastroesophageal Reflux Disease, Hx Hiatal Hernia - with bowel loop, Other GI Disorders - bowel necrosis and surgery Denies: Hx Crohn's Disease, Hx Gall Bladder Disease, Hx Gastrointestinal Bleed, Hx Jaundice, Hx Obstructive Bowel, Hx Pyloric Stenosis History: Reports: Hx Kidney Stones - 09/29/18, Other Problems/Disorders - frequent UTI Musculoskeletal History: Reports: Hx Arthritis, Hx Orthopedic Injury, Other Musculoskeletal History - arthritis, degenerative disk in neck, R SHOULDER PAIN Sensory History: Reports: Hx Hearing Problem - [place] Denies: Hx Contacts or Glasses, Hx Eye Injury, Hx Eye Prosthesis, Hx Glaucoma , Hx Legally Blind, Hx Macular Degeneration, Hx Vision Problem, Hx Deafness, Hx Hearing Aid Opthamlomology History: Denies: Hx Contacts or Glasses, Hx Eye Injury, Hx Eye Prosthesis, Hx Glaucoma , Hx Legally Blind, Hx Macular Degeneration, Hx Vision Problem Neurological History: Reports: Other Neuro Impairments/Disorders - tingling down left arm from arthritis Psychiatric History: Reports: Hx Anxiety, Hx Depression, Hx Panic Disorder - Cancer History Cancer Type, Location and Year: None reported Hx Chemotherapy: No Hx Radiation Therapy: No Hx Palliative Cancer Treatment: No - Surgical History Surgery Procedure, Year, and Place: LT LEG SURGERY 2006, RT SHOULDER -, RT SHOULDER -12 AT [place], right femoral angioplasty, 10/2013, [place], recent bowel resection December 2013, R LEG--[place]; [facility] [place] Sep.28 Hernia Repair - Immunization History Date of Tetanus Vaccine: Unkown Infectious Disease History: No Infectious Disease History: Reports: Hx Tuberculosis - 10 YEARS, History Other Infectious Disease - Klebsiella P. in urine Denies: Hx Clostridium Difficile, Hx Hepatitis, Hx of Known/Suspected MRSA, Hx Shingles, Hx Known/Suspected VRE, Hx Known/Suspected VRSA, Traveled Outside the [place] in Last 30 Days - Family History Known Family History: Negative: Hypertension, Diabetes - Social History Alcohol Use: None Hx Substance Use: Yes Substance Use Type: Reports: None Substance Use Comment - Amount & Last Used: have (+) for opiod and benzodiazepine. Hx Tobacco Use: Yes Smoking Status (MU): Light Every Day Tobacco Smoker Type: Cigarettes Amount Used/How Often: 2 ppd Length of Time of Smoking/Using Tobacco: 40 Have You Smoked in the Last Year: No Review of Systems Positive: Fever, Chills Positive: Cough Neurological: Other - Dizziness Positive: Headache All Other Systems Reviewed And Are Negative: Yes Physical Exam - Summary Physical Exam Summary: Appearance: The patient is well-nourished in no acute distress and in no acute pain. Skin: The skin is warm and dry and skin color reflects adequate perfusion. HEENT: The head is normocephalic and atraumatic. The pupils are equal and reactive. The conjunctivae are clear and without drainage. Nares are patent and without drainage. Mouth reveals moist mucous membranes and the throat is without erythema and exudate. The external ears are intact. The ear canals are patent and without drainage. The tympanic membranes are intact. Neck: The neck is supple with full range of motion and non-tender. There are no carotid bruits. There is no neck vein distension. Respiratory: Chest is non-tender. Decreased breath sounds. Increase E:I ratio. Dry cough Cardiovascular: Heart is regular rate and rhythm. There is no murmur or rub auscultated. There is no peripheral edema and pulses are symmetrical and equal. Abdomen: The abdomen is soft and non-tender. There are normal bowel sounds heard in all four quadrants and there is no organomegaly palpated. Musculoskeletal: There is no back tenderness noted. Extremities are non-tender with full range of motion. There is good capillary refill. There is no peripheral edema or calf tenderness elicited. Neurological: Patient is alert and oriented to person, place and time. The patient has symmetrical motor strength in all four extremities. Cranial nerves are grossly intact. Deep tendon reflexes are symmetrical and equal in all four extremities. Psychiatric: The patient has an appropriate affect and does not exhibit any anxiety or depression. Triage Information Reviewed: Yes Vital Signs On Initial Exam: Initial Vitals Temp Pulse Resp BP Pulse Ox 100.3 F 105 18 178/89 96 01/18/19 15:07 01/18/19 15:07 01/18/19 15:07 01/18/19 15:07 01/18/19 15:07 Vital Signs Reviewed: Yes Diagnostics - Vital Signs Vital Signs Temp Pulse Resp BP Pulse Ox 01/18/19 15:14 106 94 01/18/19 15:13 110 178/89 94 01/18/19 15:07 100.3 F 105 18 178/89 96 - Laboratory Result Diagrams: 01/19/19 06:23 01/19/19 06:23 Lab Statement: Any lab studies that have been ordered have been reviewed, and results considered in the medical decision making process. - Radiology CXR Radiology Interpretation Completed By: Radiologist Summary of Radiographic Findings: CXR reveals, per radiologist, IMPRESSION: PULMONARY VASCULAR CONGESTION. ED physician has reviewed this radiology report. CXR 2 Radiology Interpretation Completed By: ED Physician Summary of Radiographic Findings: CXR reveals, per ED physician, Pulmonary Edema , no significant change from previous EKG. Pending official report. - EKG 1601 Cardiac Rate: Tachycardia EKG Rhythm: Sinus Tachycardia - 100 BPM Summary of EKG Findings: An EKG, taken 1601, reveals Sinus Tachycardia (100 BPM) , normal ST, no ectopy, no STEMI. Course/Dx - Course Course Of Treatment: Ms. Jiménez presented to the emergency department complaining that she's been having URI type symptoms for several weeks and has become more short of breath. She was nontoxic in appearance with stable vital signs when she arrived. She reported a fever at home and EMS reported fever but she was afebrile here. She also complained of a significant headache. Her exam was remarkable for some neck tension without meningismus. She had some decreased breath sounds and wheezing. IV was initiated and she was given IV fluids as well as ketorolac and Ativan as a muscle relaxer. She felt improved and her chest x-ray was read by radiology as CHF. Her pulse ox have been marginal while she was here and I asked the hospitalist to evaluate her for admission. - Diagnoses Provider Diagnoses: CHF (congestive heart failure), COPD exacerbation - Provider Notifications Discussed Care Of Patient With: Danya Hernandez - Hospitalist Time Discussed With Above Provider: 18:08 - We discussed patient care with Dr. Hernandez (Hospitalist) at 1808 and she agrees to accept the patient. Discharge - Sign-Out/Discharge Documenting (check all that apply): Patient Departure Patient Received Moderate/Deep Sedation with Procedure: No - Discharge Plan Condition: Stable Disposition: ADMITTED TO [facility] - Billing Disposition and Condition Condition: STABLE Disposition: Admitted to [facility] - Attestation Statements Document Initiated by Scribe: Yes Documenting Scribe: Bobby Aragon Provider For Whom Brandi is Documenting (Include Credential): Helio Miller MD Scribkwasi Attestation: Bobby Slade, scribed for Helio Miller MD on 01/19/19 at 1741. Scribe Documentation Reviewed: Yes Provider Attestation: The documentation as recorded by the Bobby mcduffie accurately reflects the service I personally performed and the decisions made by me, Helio Miller MD Status of Scribe Document: Viewed
[2019-01-18 16:06] LABS: ABS Basophils 0 10^3/ul (0-0.2); ABS Eosinophils 0 10^3/ul (0-0.6); ABS Lymphocytes 0.6 10^3/ul (1.0-4.8); ABS Monocytes 0.7 10^3/ul (0-0.8); ABS Neutrophils 10.6 10^3/ul (1.5-7.7); ABS Nucleated RBC 0 10^3/ul; Eosinophil % 0.2 %; Hematocrit 35 % (33-41); Hemoglobin 11.3 g/dL (12.0-16.0); Lymphocyte % 5.1 %; Mean Corpuscular HGB Conc 32 g/dL (31-36); Mean Corpuscular Hemoglobin 28 pg (27-31); Mean Corpuscular Volume 86 fL (80-97); Mean Platelet Volume 8.2 fL (7.4-10.4); Nucleated Red Blood Cells % 0; Platelet Count 227 10^3/uL (150-450); Red Cell Distribution Width 14 % (10.5-15); White Blood Count 11.9 10^3/uL (3.5-10.8)
[2019-01-18 16:12] LABS: INR 1.02 (0.77-1.02)
[2019-01-18 16:21] LABS: ALT 13 U/L (7-52); AST 19 U/L (13-39); Albumin 4.4 g/dL (3.2-5.2); Albumin/Globulin Ratio 1.4 (1-3); Alkaline Phosphatase 64 U/L (34-104); Anion Gap 7 mmol/L (2-11); BUN/Creatinine Ratio 14.1 (8-20); Blood Urea Nitrogen 11 mg/dL (6-24); C Reactive Protein 35.58 mg/L (<8.01); CO2 Carbon Dioxide 29 mmol/L (22-32); Calcium 9.4 mg/dL (8.6-10.3); Chloride 97 mmol/L (101-111); EGFR African American 89.7 (>60); EGFR Non-African American 74.1 (>60); Globulin 3.2 g/dL (2-4); Glucose 119 mg/dL (70-100); Potassium 3.9 mmol/L (3.5-5.0); Sodium 133 mmol/L (135-145); Total Protein 7.6 g/dL (6.4-8.9)
[2019-01-18 16:27] LABS: Troponin I 0.04 ng/mL (<0.04)
[2019-01-18 17:58] LABS: Influenza A Molecular NEGATIVE (Negative); Influenza B Molecular NEGATIVE (Negative)
[2019-01-18] MEDS ORDERED: methylPREDNISolone 125 MG* 2 ML VIAL IV ONE (18:47)
[2019-01-18] MEDS ORDERED: cefTRIAXone(*) 1 GM in NS 0.9% 50 ML* 50 ML IVPB SCH (18:48)
[2019-01-18] MEDS ORDERED: Acetaminophen TAB* 325 MG PO PRN (18:54)
[2019-01-18] MEDS ORDERED: Ondansetron INJ* 2 MG/ML VIAL IV PRN (18:54)
[2019-01-18] MEDS ORDERED: NS 0.9% 1000 ML** 1,000 ML IV SCH (19:00)
[2019-01-18] MEDS ORDERED: cefTRIAXone(*) 1 GM ADVAN/BAG ONE (19:40)
[2019-01-18 19:56] LABS: Troponin I 0.06 ng/mL (<0.04)
[2019-01-18] MEDS ORDERED: Azithromycin IV(*) 500 MG in NS 0.9% 250 ML* 250 ML IVPB ONE (20:00)
[2019-01-18 20:30] LABS: Urine Appearance Clear; Urine Bilirubin Negative (Negative); Urine Blood Negative (Negative); Urine Color Straw; Urine Glucose Negative (Negative); Urine Ketones Negative (Negative); Urine Nitrite Negative (Negative); Urine Protein Negative (Negative); Urine Specific Gravity 1.003 (1.010-1.030); Urine Urobilinogen Negative (Negative)
[2019-01-18] MEDS: Mometasone/Formoter 200/5 MDI INH SCH (21:21)
[2019-01-18] MEDS: Albuterol HFA INHALER* 8 gm MDI INH PRN (21:24)
[2019-01-18] MEDS: cefTRIAXone(*) 1 GM in NS 0.9% 50 ML* 50 ML IVPB SCH (21:53)
[2019-01-18] MEDS: Atorvastatin* 40 MG TAB PO SCH (21:53)
[2019-01-18] MEDS: Pregabalin CAP(*) 25 MG PO SCH (21:53)
[2019-01-18] MEDS: ALPRAZolam TAB* 0.25 MG PO PRN (22:05)
[2019-01-18] MEDS: oxyCODONE/Acetamin 5/325 MG* TAB PO PRN (22:06)
[2019-01-18 22:18] LABS: Troponin I 0.06 ng/mL (<0.04)
--- NOTE | 2019-01-18 23:30 | HP ---
CC: Dr. Parmar * ADMISSION HISTORY AND PHYSICAL: DATE OF ADMISSION: 01/18/19 PRIMARY CARE PROVIDER: Dr. Parmar. HEALTHCARE PROXY: Her daughter, Yaima. CODE STATUS: Full. SOURCE OF INFORMATION: History obtained from interview with the patient, review of EMS records, discussion with ER physician. RELIABILITY: Fair from other sources. From patient, fair to poor. CHIEF COMPLAINT: Shortness of breath. HISTORY OF PRESENT ILLNESS: This is a 63-year-old female with a past medical history of COPD, on 2 L of home oxygen p.r.n. as well as recent admission to [facility] in September 2018 with strep pneumonia, who has felt well, closer to her baseline since that time, was feeling herself yesterday as well. However, today , she felt hot and she also felt confused like she "didn't know what she was doing." She had a subjective fever, which was measured to be 105 by EMS as well as a chronic cough that she felt became wet and productive today without shortness of breath immediately nor chest pain, nausea, vomiting, but did endorse lightheadedness. Because of this worsening cough associated with late- onset shortness of breath as well as feeling of confusion, she called her daughter, who directed her to activate EMS. I should note she also demonstrated aching of her body localized to her neck, which is the region of chronic pain that she has endorsed previously, as well as a headache, which improved with fluids in the emergency room. Hospitalist services were asked to consult for admission. When seen by this author, she denied shortness of breath. She felt improved on oxygen. Apparently, she was 82% at home on 2 L when EMS found her, increased to 95% on 5 L. When seen by this author, she is 93% on 2.5 L. The patient indicates her maximal effort at home is walking to laundry, general housework, or walking downstairs for lunch. She did not walk downstairs for lunch today as they do not serve it on the weekends at [facility], but otherwise was not limited in her activities of daily living by her breathing or cough. PAST MEDICAL HISTORY: Includes moderate aortic stenosis, heart failure with preserved ejection fraction, CAD; PCI in November 2017, peripheral vascular disease, COPD with chronic respiratory failure; on as-needed oxygen 2 L to sleep , anxiety, history of incarcerated abdominal hernia, chronic pain secondary to cervical spine disease. She has SMA, stents, hypertension, hypothyroidism, depression, recent respiratory failure in the setting of strep pneumonia in September 2018 where she also had atrial fibrillation identified. MEDICATIONS: Home medications were reviewed and include: 1. Combivent 1 puff 4 times daily. 2. Albuterol 1 puff every 4 hours as needed. 3. Alprazolam 0.25 mg every 6 hours as needed. 4. Fluticasone/salmeterol 115/21 two puffs twice daily. 5. Diltiazem CD 240 mg daily. 6. Cyclobenzaprine 10 mg 3 times a day as needed. 7. Atorvastatin 40 mg at bedtime. 8. Aspirin 81 mg daily. 9. Nitroglycerin sublingual 0.4 mg every 5 minutes as needed for chest pain. 10. Montelukast 10 mg in the evening. 11. Myrbetriq 50 mg in the morning. 12. Metoprolol succinate 25 mg in the morning. 13. Lisinopril 10 mg in the morning. 14. Levothyroxine 75 mcg in the morning. 15. Percocet 5/325 one tab 3 times daily. 16. Zoloft 200 mg in the evening. 17. Xarelto 20 mg daily. 18. Lyrica 25 mg 3 times daily. ALLERGIES: To GABAPENTIN. FAMILY HISTORY: She has 2 brothers with CAD. SOCIAL HISTORY: Former tobacco user for over 40 years of 2 packs per day before she quit 8 years prior; however, nurse indicates her daughter called and says she is still an active smoker. Former heavy alcohol abuse, reports quit 8 years prior. Currently, a resident at [facility]. REVIEW OF SYSTEMS: Positive for fever, chronic cough; now productive, lightheadedness, neck pain, headache, and sensation of briefly feeling confused at home. Otherwise, all other systems negative. PHYSICAL EXAMINATION GENERAL: Lying flat. She is interactive, pleasant, talks in full sentences, occasional cough during my interview. VITAL SIGNS: When seen by this author 138/84, heart rate is 100, respiratory rate is 16, T-max 100.3, 92% on 2.5 L. HEENT: Oropharynx is clear. She has moist mucous membranes. Her sclerae are anicteric. NECK: She has non-elevated JVD at 30 degrees. She has no cervical or supraclavicular lymphadenopathy, although an area of tenderness in her submandibular gland on the right. LUNGS: Her lungs are largely clear, except for rales in her left base with occasional end-expiratory wheeze. HEART: She has a tachycardic heart rate at 100 beats per minute, but regular with 2/6 systolic ejection murmur heard throughout her precordium, loudest in the right upper sternal border. ABDOMEN: Soft, nontender, nondistended. She has surgical incision healed, unscarred from previous incarcerated hernia. EXTREMITIES: Warm and well perfused. She has less than 2-second cap refills. She has no clubbing, cyanosis, or edema. NEURO: She is alert and oriented x3. Her cranial nerves II through XII are intact. Her pupils are approximately 4 mm to 2 mm with light. She has no apparent anxiety, agitation, or depression. DIAGNOSTIC STUDIES/LAB DATA: Labs reviewed and notable for troponin I of 0.04 , CRP is 35, BNP 217. Lactic acid is 0.6, BUN 11, creatinine 0.78. White blood cell count is 11.9; which is 88.5% neutrophils, her hemoglobin is 11.3; which is near baseline, her platelets are 227. She is negative for influenza A and B. Data reviewed: Chest x-ray, formal impression: Pulmonary vascular congestion. There was an area in the right middle lobe that appears early consolidation. No apparent consolidation on the left. An area of adventitious lung sounds. EKG: Sinus tachycardia, normal axes, normal R-wave progression, no Qs, no ST- or T- wave changes, except for 1 mm elevation in III; appears J point. Similarly, submillimeter ST elevation at aVF, also J point. ASSESSMENT AND PLAN: This is a 63-year-old female with past medical history of chronic obstructive pulmonary disease with chronic respiratory failure, atrial fibrillation, and coronary artery disease presenting with sudden-onset worsening in her breathing associated with fever, productive cough, found with hypoxic respiratory failure. 1. Hypoxic respiratory failure. Highest on the differential includes decompensated diastolic heart failure, pneumonia, chronic obstructive pulmonary disease exacerbation. While the chest x-ray is concerning for pulmonary vascular congestion and her BNP is slightly elevated at 217, she has no other stigmata of volume overload including absence of edema, elevated jugular vein distention, and the acute onset of her symptoms in conjunction with fever, favor pneumonia as well along with constellation of physical exam findings including rales in the left base. I will repeat a chest x-ray with a PA and lateral to get a better view of posterior to the heart. Start ceftriaxone as well as azithromycin. Check Streptococcus pneumoniae, Legionella urine antigens as well as a sputum culture. The patient does have end-expiratory wheezes and in the setting of her known chronic obstructive pulmonary disease with chronic respiratory failure. We will give her 1 dose methylprednisolone 125 mg now and then start p.o. prednisone tomorrow. 2. Elevated troponins with a history of coronary artery disease. Trend troponins, continue home medications including aspirin, beta hermilo, Lipitor. Suspect demand ischemia in the setting of underlying infection. 3. Fever. Suspect pneumonia as indicated above; however, also check urine. 4. Atrial fibrillation. Continue diltiazem, Toprol, Xarelto. 5. Chronic obstructive pulmonary disease. 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 Continue with home inhalers and steroids as indicated above. 6. DVT prophylaxis. Xarelto. TIME SPENT: Greater than 60 minutes was spent in the admission of this patient , with greater than half spent [id number] with the patient. [id number]/[facility] #: [id number] FERMÍN
[2019-01-19] MEDS: Levothyroxine TAB* 75 MCG TAB PO SCH (05:38)
[2019-01-19 07:00] LABS: ABS Basophils 0 10^3/ul (0-0.2); ABS Eosinophils 0 10^3/ul (0-0.6); ABS Lymphocytes 0.5 10^3/ul (1.0-4.8); ABS Monocytes 0.1 10^3/ul (0-0.8); ABS Nucleated RBC 0 10^3/ul; Eosinophil % 0 %; Hematocrit 34 % (33-41); Hemoglobin 11.2 g/dL (12.0-16.0); Lymphocyte % 6.7 %; Mean Corpuscular HGB Conc 33 g/dL (31-36); Mean Corpuscular Hemoglobin 28 pg (27-31); Mean Corpuscular Volume 87 fL (80-97); Mean Platelet Volume 8.7 fL (7.4-10.4); Nucleated Red Blood Cells % 0; Platelet Count 208 10^3/uL (150-450); Red Blood Count 3.97 10^6 /uL (3.70-4.87); Red Cell Distribution Width 14 % (10.5-15); White Blood Count 7.7 10^3/uL (3.5-10.8)
[2019-01-19 07:14] LABS: BUN/Creatinine Ratio 18.6 (8-20); Calcium 8.9 mg/dL (8.6-10.3); EGFR African American 101.6 (>60); Potassium 3.8 mmol/L (3.5-5.0)
[2019-01-19] MEDS: Mometasone/Formoter 200/5 MDI INH SCH ×2 (08:06→20:30)
[2019-01-19] MEDS: Albuterol HFA INHALER* 8 gm MDI INH PRN (08:06)
[2019-01-19] MEDS: Pregabalin CAP(*) 25 MG PO SCH ×3 (08:32→21:35)
[2019-01-19] MEDS: Aspirin EC TAB* 81 MG TAB.EC PO SCH (08:32)
[2019-01-19] MEDS: Metoprolol Succinate XL TAB* 25 MG PO SCH (08:32)
[2019-01-19] MEDS: predniSONE TAB* 20 MG PO SCH (08:32)
[2019-01-19] MEDS: Rivaroxaban TAB(*) 20 MG TAB PO SCH (08:33)
[2019-01-19] MEDS: Cyclobenzaprine TAB* 10 MG PO PRN ×3 (08:33→21:34)
[2019-01-19] MEDS: oxyCODONE/Acetamin 5/325 MG* TAB PO PRN ×3 (08:33→21:34)
[2019-01-19] MEDS: Lisinopril TAB* 10 MG PO SCH (08:33)
[2019-01-19] MEDS: Diltiazem CD CAP* 240 MG PO SCH (08:34)
[2019-01-19] MEDS: ALPRAZolam TAB* 0.25 MG PO PRN ×3 (08:34→21:34)
[2019-01-19] MEDS: NF:Mirabegron (NF) 25 MG TAB PO SCH (08:36)
--- NOTE | 2019-01-19 16:40 | PN ---
Subjective Date of Service: 01/19/19 Interval History: Productive cough but breathing feels improved No N/V, LH Has not walked reports she occasionally chokes on food at home afebrile since first temp check in ED Objective Active Medications: Acetaminophen (Tylenol Tab*) 650 mg PO Q4H PRN PRN Reason: FEVER/PAIN Albuterol (Ventolin Hfa Inhaler*) 1 puff INH Q4H PRN PRN Reason: WHEEZING Last Admin: 01/19/19 08:06 Dose: 1 puff Alprazolam (Xanax Tab*) 0.25 mg PO Q6H PRN PRN Reason: ANXIETY Last Admin: 01/19/19 14:21 Dose: 0.25 mg Aspirin (Aspirin Ec Tab*) 81 mg PO QAM [facility] Last Admin: 01/19/19 08:32 Dose: 81 mg Atorvastatin Calcium (Lipitor*) 40 mg PO BEDTIME [facility] Last Admin: 01/18/19 21:53 Dose: 40 mg Cyclobenzaprine HCl (Flexeril Tab*) 10 mg PO TID PRN PRN Reason: SPASMS Last Admin: 01/19/19 14:22 Dose: 10 mg Diltiazem HCl (Cardizem Cd Cap*) 240 mg PO DAILY [facility] Last Admin: 01/19/19 08:34 Dose: 240 mg Azithromycin 250 mg/ Sodium (Chloride) 250 mls @ 250 mls/hr IVPB Q24H OREN Ceftriaxone Sodium 1 gm/ (Sodium Chloride) 50 mls @ 200 mls/hr IVPB 2100 [facility] Last Admin: 01/18/19 21:53 Dose: 200 mls/hr Levothyroxine Sodium (Synthroid Tab*) 75 mcg PO 0600 [facility] Last Admin: 01/19/19 05:38 Dose: 75 mcg Lisinopril (Prinivil Tab*) 10 mg PO QAM [facility] Last Admin: 01/19/19 08:33 Dose: 10 mg Metoprolol Succinate (Toprol Xl Tab*) 25 mg PO QAM [facility] Last Admin: 01/19/19 08:32 Dose: 25 mg Mirabegron (Myrbetriq (Nf)) 50 mg PO QAM [facility] Last Admin: 01/19/19 08:36 Dose: Not Given Mometasone Furoate/Formoterol Fumar (Dulera 200/5 Mdi*) 2 puff INH BID [facility]; Protocol Last Admin: 01/19/19 08:06 Dose: 2 puff Montelukast Sodium (Singulair Tab*) 10 mg PO QPM [facility] Ondansetron HCl (Zofran Inj*) 4 mg IV Q4H PRN PRN Reason: NAUSEA/VOMITING Oxycodone/Acetaminophen (Percocet 5/325 Tab*) 1 tab PO TID PRN PRN Reason: PAIN Last Admin: 01/19/19 14:21 Dose: 1 tab Prednisone (Deltasone Tab*) 40 mg PO DAILY [facility] Last Admin: 01/19/19 08:32 Dose: 40 mg Pregabalin (Lyrica Cap(*)) 25 mg PO TID [facility] Last Admin: 01/19/19 14:21 Dose: 25 mg Rivaroxaban (Xarelto(*)) 20 mg PO DAILY [facility] Last Admin: 01/19/19 08:33 Dose: 20 mg Sertraline HCl (Zoloft*) 200 mg PO QPM [facility] Vital Signs - 8 hr 01/19/19 01/19/19 01/19/19 10:16 14:21 14:22 Temperature Pulse Rate Respiratory 20 18 18 Rate Blood Pressure (mmHg) O2 Sat by Pulse Oximetry 01/19/19 14:54 Temperature 98.3 F Pulse Rate 86 Respiratory 20 Rate Blood Pressure 158/81 (mmHg) O2 Sat by Pulse 95 Oximetry Oxygen Devices in Use Now: Nasal Cannula Appearance: sitting on edge of bed, NAD Eyes: No Scleral Icterus, PERRLA Ears/Nose/Mouth/Throat: NL Teeth, Lips, Gums, Clear Oropharnyx, Mucous Membranes Moist Neck: NL Appearance and Movements; NL JVP, Trachea Midline Respiratory: Symmetrical Chest Expansion and Respiratory Effort, - - rales on left 1/2 up with e to a changes Cardiovascular: RRR, - - 2/6 MINERVA Abdominal: NL Sounds; No Tenderness; No Distention, No Hepatosplenomegaly Lymphatic: No Cervical Adenopathy Extremities: No Edema Skin: No Rash or Ulcers Neurological: Alert and Oriented x 3 Result Diagrams: 01/19/19 06:23 01/19/19 06:23 Microbiology and Other Data: Microbiology 01/18/19 15:58 Aerobic Blood Culture - Preliminary Blood Venous No Growth Day 1 Anaerobic Blood Culture - Preliminary No Growth Day 1 01/18/19 15:58 Aerobic Blood Culture - Preliminary Blood Venous No Growth Day 1 Anaerobic Blood Culture - Preliminary No Growth Day 1 01/19/19 11:10 Gram Stain - Final Sputum Expectorated 01/18/19 20:00 Legionella Urinary Antigen - Final Urine Negative Legionella Antigen Streptococcus pneumoniae Ag Screen - Final Negative S. pneumo Antigen 01/18/19 17:25 Influenza Types A,B Antigen - Final Nasopharyngeal Specimen received for Influenza A/B Molecular testing Assess/Plan/Problems-Billing Assessment: 63 yo F h/o COPD using PRN oxygen at home, mAS, HFpEF, CAD/PCI, strep pneumonia 09/2018 p/w hyspoix respiratory failure - Patient Problems (1) Acute respiratory failure with hypoxia Comment: while both CXRs do not indicate a PNA fever at home and clinical exam with rales and E to A changes on left favor a PNA. c/w CTX and azithro c/w prednisone for PNA and/or COPD exacerbation I suspect COPD has progressed enough to need baseline oxygen at home. Pt will need ambulatory testing prior to dc to qualify (2) Atrial fibrillation with rapid ventricular response Comment: paroxysmal a-fib in NSR today c/w xarelto and metoprolol and diltiazem (3) CAD (coronary artery disease) Comment: -Continue ASA, atorvastatin, metoprolol, lisinopril (4) Elevated troponin Comment: suspect demand in setting of hypoxic resp failure (5) DVT prophylaxis Comment: xarelto
[2019-01-19] MEDS ORDERED: Montelukast Sodium TAB* 10 MG PO SCH (18:00)
[2019-01-19] MEDS ORDERED: Sertraline* 100 MG TAB PO SCH (18:00)
[2019-01-19] MEDS ORDERED: Azithromycin IV(*) 250 MG in NS 0.9% 250 ML* 250 ML IVPB SCH (20:00)
[2019-01-19] MEDS: cefTRIAXone(*) 1 GM in NS 0.9% 50 ML* 50 ML IVPB SCH (21:34)
[2019-01-19] MEDS: Atorvastatin* 40 MG TAB PO SCH (21:35)
[2019-01-20] MEDS: Levothyroxine TAB* 75 MCG TAB PO SCH (05:18)
[2019-01-20] MEDS: Mometasone/Formoter 200/5 MDI INH SCH (07:48)
[2019-01-20] MEDS: Albuterol HFA INHALER* 8 gm MDI INH PRN (07:52)
[2019-01-20] MEDS: Pregabalin CAP(*) 25 MG PO SCH ×2 (10:18→14:42)
[2019-01-20] MEDS: predniSONE TAB* 20 MG PO SCH (10:18)
[2019-01-20] MEDS: Rivaroxaban TAB(*) 20 MG TAB PO SCH (10:18)
[2019-01-20] MEDS: Diltiazem CD CAP* 240 MG PO SCH (10:20)
[2019-01-20] MEDS: Lisinopril TAB* 10 MG PO SCH (10:20)
[2019-01-20] MEDS: Metoprolol Succinate XL TAB* 25 MG PO SCH (10:20)
[2019-01-20] MEDS: Aspirin EC TAB* 81 MG TAB.EC PO SCH (10:20)
[2019-01-20] MEDS: NF:Mirabegron (NF) 25 MG TAB PO SCH (10:22)
[2019-01-20 10:54] VITALS: BP 181/94
[2019-01-20] MEDS: ALPRAZolam TAB* 0.25 MG PO PRN (11:11)
[2019-01-20] MEDS: oxyCODONE/Acetamin 5/325 MG* TAB PO PRN (14:50)
[2019-01-20] MEDS: Cyclobenzaprine TAB* 10 MG PO PRN (14:50)
--- NOTE | 2019-01-20 16:24 | DS ---
CC: Dr. Parmar * DISCHARGE SUMMARY: DATE OF ADMISSION: 01/18/19 DATE OF DISCHARGE: 01/20/19 PRINCIPAL DISCHARGE DIAGNOSES: 1. Community-acquired pneumonia. 2. Acute on chronic hypoxic respiratory failure. 3. Elevated troponin. 4. Chronic obstructive pulmonary disease excerebration. SECONDARY DISCHARGE DIAGNOSES: 1. Atrial fibrillation. 2. Chronic obstructive pulmonary disease. 3. Moderate aortic stenosis. 4. Heart failure with preserved ejection fraction. 5. Coronary artery disease. 6. Peripheral vascular disease. 7. Anxiety. 8. Chronic pain syndrome. MEDICATIONS AT THE TIME OF DISCHARGE: 1. Flexeril 10 mg t.i.d. p.r.n. spasm. 2. Percocet 1 tab t.i.d. 3. Singulair 10 mg q.h.s. 4. Sertraline 200 mg q.h.s. 5. Xanax 0.25 mg q.6 p.r.n. anxiety. 6. Nitro 0.4 mg sublingual q.5 minutes p.r.n. chest pain. 7. Atorvastatin 40 mg q.h.s. 8. ProAir 1 puff inhaled q.4 p.r.n. wheezing. 9. Mirabegron 50 mg daily. 10. Lyrica 25 mg t.i.d. 11. Lisinopril 10 mg daily. 12. Toprol 25 mg daily. 13. Combivent 1 puff q.i.d. 14. Aspirin 81 mg daily. 15. Xarelto 20 mg daily. 16. Diltiazem 240 mg daily. 17. Advair 2 puffs inhaled b.i.d. 18. Synthroid 75 mcg daily. 19. Levaquin 750 mg daily for 4 days. 20. Prednisone 40 mg daily for 4 days. PHYSICAL EXAM AT THE TIME OF DISCHARGE: Temperature 97.5, heart rate 80, respiratory rate 16, pulse ox 95% on 2 L, blood pressure 143/80. General: Alert, well-appearing female, who is sitting up in bed, resting comfortably. She is able to speak in full sentences with no accessary respiratory muscle use. HEENT: Pupils are 3 mm bilaterally and reactive to light. Oral mucosa is moist. Neck: No JVP. No adenopathy. Chest: She is in a regular rhythm. She has a systolic murmur throughout and rhonchi in the left lower lobe. Abdomen: Soft, nontender, and nondistended. She has an old healed midline laparotomy incision. Extremities: She had left lower extremity edema and old peripheral incisions that are healed. Neurologic: Strength is 5/5 throughout and her gait is normal. HOSPITAL COURSE BY PROBLEM: 1. Community acquired pneumonia. When Ms. Jiménez was admitted, she had a leukocytosis, was hypoxic, had a low-grade fever to 100.3 and was found to have rhonchi in the left lower lobe, so was treated empirically for community- acquired pneumonia despite her chest x-ray not having an infiltrate. This was continued and she improved drastically symptomatically. Her urine antigens were negative. At the time of discharge, her sputum culture is pending and she will be followed up as an outpatient. Influenza swabs were negative and blood cultures remained negative. Her leukocytosis resolved by the time of discharge and she will be discharged with 4 more days of levofloxacin. 2. COPD excerebration. She was treated with nebs and steroids and again improved dramatically. At the time of discharge, her symptoms were completely resolved; however, she did qualify for home ambulatory oxygen. She already has home O2 nocturnally, but is instructed to wear it during the day with ambulation as well. 3. Acute on chronic hypoxic respiratory failure, likely secondary to the above problems. Again, her hypoxia resolved with ambulation when on 2 L. 4. Elevated troponin. She did have a mildly elevated troponin to 0.06, but never had any chest pain or ischemic changes on her EKG. She had a left heart catheterization in November 2017, at which time she was found to have 2-vessel disease in the LAD and RPDA of the acute marginal branch. A stent was placed in the LAD; however, the RPDA was too small for intervention. She is to follow up with her zygl[employer] technician, Dr. Morrison. 5. AFib. She is continued on Xarelto. 6. Chronic pain syndrome. She was continued on Lyrica and Percocet. DISPOSITION: Ms. Jiménez is discharged to home with both nocturnal and daytime oxygen. She is to follow up within [address] Parmar and also as scheduled with Dr. Morrison. She is to return to the emergency department should she develop chest pain, shortness of breath, fevers, or any other new symptoms. CONDITION AT THE TIME OF DISCHARGE: Stable. TIME SPENT: Forty minutes were spent on this discharge. [id number]/[facility] #: [id number] FERMÍN
== END 2019-01-20 15:05 | disposition home health service (06) | DRG 193 ==
LOC: ED 15:03 → MED 18:54 → INTOOBSV 18:54
PROVIDERS: ADMIT Internal Medicine; ATTEND Internal Medicine
DX: J18.9 Pneumonia, unspecified organism (principal); J96.21 Acute and chronic respiratory failure with hypoxia; J44.1 Chronic obstructive pulmonary disease with (acute) exacerbation; I50.30 Unspecified diastolic (congestive) heart failure; R74.8 Abnormal levels of other serum enzymes; I48.91 Unspecified atrial fibrillation; I35.0 Nonrheumatic aortic (valve) stenosis; I50.9 Heart failure, unspecified; I25.10 Atherosclerotic heart disease of native coronary artery without angina pectoris; I73.9 Peripheral vascular disease, unspecified; F41.9 Anxiety disorder, unspecified; G89.4 Chronic pain syndrome; E03.9 Hypothyroidism, unspecified; I11.0 Hypertensive heart disease with heart failure; Z79.01 Long term (current) use of anticoagulants; Z79.82 Long term (current) use of aspirin; Z79.51 Long term (current) use of inhaled steroids; Z79.899 Other long term (current) drug therapy; Z88.8 Allergy status to other drugs, medicaments and biological substances; Z82.49 Family history of ischemic heart disease and other diseases of the circulatory system; Z87.891 Personal history of nicotine dependence
CPT/HCPCS: 36415; 71045; 71046; 80048; 80053; 81003; 83605; 83880; 84484; 85025; 85610; 86140; 87040; 87070; 87077; 87186; 87205; 87899; 93005; 94640; 96361; 96374; 96375; 99284; 99406; A9270-GY; G0378; J0456; J0696; J1885; J2060; J2930; J7512

== ENCOUNTER 2019-05-02 11:25 | Inpatient (IN) | payer MEDICARE ==
[2019-05-02] MEDS ORDERED: NS 0.9% 1000 ML** 1,000 ML IV ONE (11:45)
[2019-05-02] MEDS ORDERED: Morphine 4 MG/ML VIAL (1 ml) 4 MG/ML VIAL IV ONE (11:47)
[2019-05-02] MEDS ORDERED: Ondansetron INJ* 2 MG/ML VIAL IV ONE (11:47)
[2019-05-02] MEDS ORDERED: Albuterol/Ipratropium NEB.SOL* Albuterol 2.5 MG/Ipratropium 0.5 MG 3 ML INH ONE (11:47)
[2019-05-02] MEDS ORDERED: methylPREDNISolone 125 MG* 2 ML VIAL IV ONE (11:47)
--- NOTE | 2019-05-02 11:47 | ED ---
Complex/Multi-Sys Presentation - HPI Summary HPI Summary: This pt is a 63 y/o female presenting to [facility] via EMS for abd pain and SOB. Pt states her abd pain began yesterday afternoon and describes it as cramping, "like having my periods." She notes she has had worsening SOB than baseline (hx of COPD). Additionally states worsening productive cough with pink/brown sputum. Pt reports confusion, and notes she called her granddaughter yesterday at midnight thinking it was in the afternoon. Denies nausea, vomiting, diarrhea , constipation, vaginal bleeding, tarry stools, bloody stools. Per EMS, pt wears 3L of O2 at home at baseline. Per EMS pt's oxygen was not connected for about 2 days and this morning the home health aide had to connect it. Pt is on Coumadin. - History Of Current Complaint Time Seen by Provider: 05/02/19 11:40 Hx Obtained From: Patient Onset/Duration: Lasting Hours, Still Present Timing: Hours Severity Currently: Moderate Location: Pain At: - abdomen Aggravating Factor(s): nothing Alleviating Factor(s): nothing Associated Signs And Symptoms: Positive: Confusion, SOB, Cough, Abdominal Pain, Other - NEGATIVE: vaginal bleeding, tarry stools, bloody stools. Negative: Chest Pain, Nausea, Vomiting, Diarrhea, Fever - Allergies/Home Medications Allergies/Adverse Reactions: Allergies Allergy/AdvReac Type Severity Reaction Status Date / Time gabapentin AdvReac Severe Memory Verified 04/25/19 08:11 Issues PMH/Surg Hx/FS Hx/Imm Hx Endocrine/Hematology History: Reports: Hx Anticoagulant Therapy, Hx Thyroid Disease - Hypothyroid Denies: Hx Diabetes Cardiovascular History: Reports: Hx Angioplasty, Hx Coronary Artery Disease, Hx Deep Vein Thrombosis, Hx Hypercholesterolemia, Hx Hypertension, Hx Peripheral Vascular Disease, Other Cardiovascular Problems/Disorders - VASCULAR DISEASE ON LEGS AND ABD (PVD) Denies: Hx Pacemaker/ICD Respiratory History: Reports: Hx Asthma, Hx Chronic Obstructive Pulmonary Disease (COPD) - pt reports on 2L O2 when laying down at home, Hx Pneumonia - 2017, Hx Seasonal Allergies, Other Respiratory Problems/Disorders - COLLAPSED LUNG 30 YRS AGO GI History: Reports: Hx Diverticulosis - 09/29/18, Hx Gastroesophageal Reflux Disease, Hx Hiatal Hernia - with bowel loop, Other GI Disorders - bowel necrosis and surgery Denies: Hx Crohn's Disease, Hx Gall Bladder Disease, Hx Gastrointestinal Bleed, Hx Jaundice, Hx Obstructive Bowel, Hx Pyloric Stenosis History: Reports: Hx Kidney Stones - 09/29/18, Other Problems/Disorders - frequent UTI Musculoskeletal History: Reports: Hx Arthritis, Hx Orthopedic Injury, Other Musculoskeletal History - arthritis, degenerative disk in neck, R SHOULDER PAIN Sensory History: Reports: Hx Hearing Problem - [place] Denies: Hx Contacts or Glasses, Hx Eye Injury, Hx Eye Prosthesis, Hx Glaucoma , Hx Legally Blind, Hx Macular Degeneration, Hx Vision Problem, Hx Deafness, Hx Hearing Aid Opthamlomology History: Denies: Hx Contacts or Glasses, Hx Eye Injury, Hx Eye Prosthesis, Hx Glaucoma , Hx Legally Blind, Hx Macular Degeneration, Hx Vision Problem Neurological History: Reports: Other Neuro Impairments/Disorders - tingling down left arm from arthritis Psychiatric History: Reports: Hx Anxiety, Hx Depression, Hx Panic Disorder - Cancer History Cancer Type, Location and Year: None reported Hx Chemotherapy: No Hx Radiation Therapy: No Hx Palliative Cancer Treatment: No - Surgical History Surgery Procedure, Year, and Place: LT LEG SURGERY 2006, RT SHOULDER -, RT SHOULDER 4-12 AT [place], right femoral angioplasty, 10/2013, [place], recent bowel resection December 2013, R LEG--[place]; [facility] Sep.28 Hernia Repair - Immunization History Date of Tetanus Vaccine: Unkown Infectious Disease History: No Infectious Disease History: Reports: Hx Tuberculosis - 10 YEARS, History Other Infectious Disease - Klebsiella P. in urine Denies: Hx Clostridium Difficile, Hx Hepatitis, Hx of Known/Suspected MRSA, Hx Shingles, Hx Known/Suspected VRE, Hx Known/Suspected VRSA, Traveled Outside the [place] in Last 30 Days - Family History Known Family History: Negative: Hypertension, Diabetes - Social History Alcohol Use: None Hx Substance Use: Yes Substance Use Type: Reports: None Substance Use Comment - Amount & Last Used: have (+) for opiod and benzodiazepine. Hx Tobacco Use: Yes Smoking Status (MU): Former Smoker Type: Cigarettes Amount Used/How Often: 2 ppd Length of Time of Smoking/Using Tobacco: 40 Have You Smoked in the Last Year: No Review of Systems Negative: Fever Negative: Chest Pain Positive: Shortness Of Breath, Cough Positive: Abdominal Pain. Negative: Vomiting, Diarrhea, Nausea, Other - NEGATIVE: constipation, tarry stools, bloody stools Negative: other - vaginal bleeding Neurological: Other - POSITIVE: confusion All Other Systems Reviewed And Are Negative: Yes Physical Exam - Summary Physical Exam Summary: VITAL SIGNS: Reviewed. GENERAL: Patient is a well-developed and nourished female who is lying comfortable in the stretcher. Patient is not in any acute respiratory distress. HEAD AND FACE: No signs of trauma. No ecchymosis, hematomas or skull depressions. No sinus tenderness. EYES: PERRLA, EOMI x 2, No injected conjunctiva, no nystagmus. EARS: Hearing grossly intact. Ear canals and tympanic membranes are within normal limits. MOUTH: Oropharynx within normal limits. NECK: Supple, trachea is midline, no adenopathy, no JVD, no carotid bruit, no c- spine tenderness, neck with full ROM. CHEST: Symmetric, no tenderness at palpation LUNGS: Diffuse wheezing, Crackels in both bases of the lungs. CVS: Regular rate and rhythm, S1 and S2 present, no murmurs or gallops appreciated. ABDOMEN: Soft, lower abdominal tenderness. No signs of distention. No rebound, no guarding, and no masses palpated. Bowel sounds are normal. EXTREMITIES: FROM in all major joints, no edema, no cyanosis or clubbing. NEURO: Alert and oriented x 3. No acute neurological deficits. Speech is normal and follows commands. SKIN: Dry and warm Triage Information Reviewed: Yes Vital Signs On Initial Exam: Initial Vitals Temp Pulse Resp BP Pulse Ox 99 F 102 20 135/90 93 05/02/19 11:35 05/02/19 11:35 05/02/19 11:35 05/02/19 11:35 05/02/19 11:35 Vital Signs Reviewed: Yes Diagnostics - Vital Signs Vital Signs Temp Pulse Resp BP Pulse Ox 05/02/19 11:35 99 F 102 20 135/90 93 - Laboratory Result Diagrams: 05/02/19 12:36 05/02/19 12:35 Lab Statement: Any lab studies that have been ordered have been reviewed, and results considered in the medical decision making process. - Radiology Chest XR Radiology Interpretation Completed By: Radiologist Summary of Radiographic Findings: IMPRESSION: Right middle lobe infiltrate is noted. Dr. Kovacs has reviewed this report. - CT Abdomen/Pelvis CT CT Interpretation Completed By: Radiologist Summary of CT Findings: IMPRESSION: There is mucosal thickening of the descending colon sigmoid colon junction in the left lower quadrant. This may represent diverticulitis although underlying neoplastic process is not totally. Urinary bladder is unremarkable. Dependent changes are noted in the lung bases. Dr. Kovacs has reviewed this report. - EKG 11:53 Cardiac Rate: NL - at 94 bpm EKG Rhythm: Sinus Rhythm Ectopy: PVCs EKG Comparison: No Significant Change - similar to previous on 01/20/19. Summary of EKG Findings: No ST elevations. Multiple PVCs. Re-Evaluation - Re-Evaluation First Eval Re-Evaluation Time: 13:30 Comment: Nurse reports pt's daughter called and reported pt fell yesterday and was on the floor for a while. Pt was also sending daughter weird text messages. Will order brain CT. Second Eval Re-Evaluation Time: 13:34 Comment: Lab reports gram stain for sputum is positive for strep pneumonia. Third Eval Re-Evaluation Time: 13:45 Comment: Pt has residual amount of 362 CC of urine. Complex Multi-Symp Course/Dx Assessment/Plan: This pt is a 63 y/o female presenting to [facility] via EMS for abd pain and SOB. Pt states her abd pain began yesterday afternoon and describes it as cramping, "like having my periods." She notes she has had worsening SOB than baseline (hx of COPD). Additionally states worsening productive cough with pink/ brown sputum. Pt reports confusion, and notes she called her granddaughter yesterday at midnight thinking it was in the afternoon. Denies nausea, vomiting , diarrhea, constipation, vaginal bleeding, tarry stools, bloody stools. Per EMS, pt wears 3L of O2 at home at baseline. Per EMS pt's oxygen was not connected for about 2 days and this morning the home health aide had to connect it. Blood work without any significant abnormality except for WBCs of 13.9, hemoglobin 11.6, glucose of 110, total CPK is 309, C-reactive protein is 103, BNP 180, lipase less than 10. Chest x-ray impression right middle lobe infiltrate. In the ED course the patient was given IV fluids, Rocephin and azithromycin for pneumonia. She was given albuterol and solu Medrol for the COPD exacerbation. The patient also was given Zofran for nausea and morphine for the abdominal pain. Abdominal and pelvic CT IMPRESSION: There is mucosal thickening of the descending colon sigmoid colon junction in. the left lower quadrant. This may represent diverticulitis although underlying neoplastic process is not totally. Urinalysis is unremarkable. Dependent changes are noted in the lung bases. I added Flagyl for acute diverticulitis. I discussed my physical exam and test results with Dr. Mckeon from the hospitalist services and she agrees to admit patient to her services. Patient is hemodynamically stable, alert and oriented x 3. - Diagnoses Provider Diagnoses: Pneumonia, Diverticulitis, COPD (chronic obstructive pulmonary disease) - Physician Notifications Discussed Care Of Patient With: Eliz Mckeon - hospitalist Time Discussed With Above Provider: 14:34 Instructed by Provider To: Admit As Inpatient Discharge - Sign-Out/Discharge Documenting (check all that apply): Patient Departure - Admit to [facility] Patient Received Moderate/Deep Sedation with Procedure: No - Discharge Plan Condition: Stable Disposition: ADMITTED TO [facility] - Billing Disposition and Condition Condition: STABLE Disposition: Admitted to [facility] - Attestation Statements Document Initiated by Sanaibe: Yes Documenting Scribe: Giselle Christensen Provider For Whom Scribe is Documenting (Include Credential): Jerry Kovacs MD Scribe Attestation: I, Giselle Christensen, scribed for Jerry Kovacs MD on 05/02/19 at 2103. Scribe Documentation Reviewed: Yes Provider Attestation: The documentation as recorded by the Giselle mcduffie accurately reflects the service I personally performed and the decisions made by me, Jerry Kovacs MD Status of Scribe Document: Viewed
[2019-05-02 12:47] LABS: ABS Eosinophils 0.1 10^3/ul (0-0.6); ABS Lymphocytes 2.6 10^3/ul (1.0-4.8); ABS Monocytes 1.3 10^3/ul (0-0.8); ABS Neutrophils 9.9 10^3/ul (1.5-7.7); Eosinophil % 0.6 %; Hematocrit 36 % (35-47); Hemoglobin 11.6 g/dL (12.0-16.0); Lymphocyte % 18.6 %; Mean Corpuscular HGB Conc 32 g/dL (31-36); Mean Corpuscular Hemoglobin 27 pg (27-31); Mean Corpuscular Volume 85 fL (80-97); Mean Platelet Volume 8.4 fL (7.4-10.4); Nucleated Red Blood Cells % 0.1; Platelet Count 196 10^3/uL (150-450); Red Blood Count 4.25 10^6 /uL (3.70-4.87); Red Cell Distribution Width 16 % (10-15); White Blood Count 13.9 10^3/uL (3.5-10.8)
[2019-05-02 12:56] LABS: Activated Partial Thrombo Time 53.3 seconds (26.0-38.0)
[2019-05-02 13:05] LABS: ALT 19 U/L (7-52); AST 21 U/L (13-39); Albumin 4.4 g/dL (3.2-5.2); Albumin/Globulin Ratio 1.4 (1-3); Alkaline Phosphatase 63 U/L (34-104); Anion Gap 6 mmol/L (2-11); BUN/Creatinine Ratio 14.1 (8-20); Blood Urea Nitrogen 12 mg/dL (6-24); C Reactive Protein 103.85 mg/L (<8.01); CO2 Carbon Dioxide 30 mmol/L (22-32); Calcium 9.1 mg/dL (8.6-10.3); Chloride 101 mmol/L (101-111); Creatine Kinase 309 U/L (10-223); EGFR African American 81.2 (>60); EGFR Non-African American 67.1 (>60); Globulin 3.1 g/dL (2-4); Glucose 110 mg/dL (70-100); Potassium 3.7 mmol/L (3.5-5.0); Sodium 137 mmol/L (135-145); Total Protein 7.5 g/dL (6.4-8.9); Troponin I 0.01 ng/mL (<0.04)
[2019-05-02] MEDS ORDERED: Iohexol 300* (CONTRAST) 10 ML SDV IV ONE (13:08)
[2019-05-02] MEDS ORDERED: cefTRIAXone(*) 1 GM in NS 0.9% 50 ML* 50 ML IVPB ONE (13:34)
[2019-05-02] MEDS ORDERED: Azithromycin 500 mg/250 ml NS 500 MG/250 ML BAG IVPB ONE (14:17)
[2019-05-02 14:27] LABS: INR 3.41 (0.82-1.09)
[2019-05-02 14:31] LABS: Urine Appearance Clear; Urine Bacteria Absent (Absent); Urine Bilirubin Negative (Negative); Urine Blood Negative (Negative); Urine Color Colorless; Urine Glucose Negative (Negative); Urine Ketones Negative (Negative); Urine Nitrite Negative (Negative); Urine Protein Negative (Negative); Urine Red Blood Cell Trace(0-2/hpf) (Absent); Urine Specific Gravity 1.002 (1.010-1.030); Urine Urobilinogen Negative (Negative); Urine White Blood Cell Absent (Absent)
[2019-05-02] MEDS ORDERED: metroNIDAZOLE IV 500 MG/100ML* 500 MG/100 ML BAG IVPB ONE (15:32)
[2019-05-02] MEDS ORDERED: Ondansetron INJ* 2 MG/ML VIAL IV PRN (15:54)
[2019-05-02] MEDS ORDERED: Acetaminophen TAB* 325 MG PO PRN (15:54)
[2019-05-02] MEDS ORDERED: NS 0.9% 1000 ML** 1,000 ML IV SCH (16:00)
[2019-05-02] MEDS ORDERED: Piperacillin/Tazobac ADVAN(*) 3.375 GM in NS 0.9% 100 ML* 100 ML IVPB ONE (16:08)
[2019-05-02] MEDS ORDERED: Zosyn per Pharmacy* NOTE FOLLOW UP SCH (17:00)
[2019-05-02] MEDS ORDERED: Montelukast Sodium TAB* 10 MG PO SCH (18:00)
[2019-05-02] MEDS ORDERED: Sertraline* 100 MG TAB PO SCH (18:00)
--- NOTE | 2019-05-02 18:05 | HP ---
CC: Dr. Parmar * MEDICINE HISTORY AND PHYSICAL: DATE OF ADMISSION: 05/02/19 PROVIDER: Meño Gramajo NP. ATTENDING PHYSICIAN: Dr. Eliz Mckeon * (dictated by Meño Gramajo NP). PRIMARY CARE PROVIDER: Dr. Miguel Parmar. CHIEF COMPLAINT: Abdominal pain and shortness of breath. HISTORY OF PRESENT ILLNESS: Ms. Jiménez is a 63-year-old female, who presents to the ER today with concerns for shortness of breath and abdominal pain. Per the ER report and per notes from her daughter, the patient has been mixed up on time and more confused than usual. Ms. Jiménez does endorse this herself and states that she woke up to extreme cramping in her abdomen and pain, which felt like menstrual cramping. She states that apparently she is "mixed up in her time" as she woke up and thought it was near morning, but it was actually midnight. She also reports a fall somewhere along the way, perhaps over night, where she slid to the floor and was unable to get up for over an hour and a half. She denies any pain or head injury and states that she just became weak and was unable to keep herself upright. She also reports this week that she had difficulties keeping her oxygen tank full and charged and went most times without her oxygen, which she wears at baseline. She does endorse a productive cough, which has been present for a few days. She denies feeling feverish or having any chills. She denies any known sick contacts. Denies chest pain, leg swelling, palpitations. Does report a productive cough and increased wheezing. Denies any nausea, vomiting, diarrhea, or blood stools. She denies hematuria , but does state that she has had some urinary incontinence secondary to coughing. Here in the ER, she was noted to have increased oxygen requirements of 5 L. A chest x-ray revealed concern for right middle lobe infiltrate. Sputum culture was collected and shows growth of gram-positive diplococci resembling S. pneumoniae. Given these findings, Hospital Medicine was consulted for admission. PAST MEDICAL HISTORY: 1. COPD with chronic hypoxic respiratory failure, on 3 L nasal cannula at baseline. 2. Coronary artery disease with recent stent in 2018. 3. Peripheral vascular disease. 4. Chronic pain secondary to cervicalgia. 5. Congestive heart failure. 6. Moderate aortic stenosis. 7. Hypertension. 8. Hypothyroidism. 9. Depression. 10. Atrial fibrillation. 11. SMA stents. 12. History of incarcerated abdominal hernia, status post ex lap on 09/29/18. HOME MEDICATIONS: 1. Symbicort 160/4.5 two puffs inhaled b.i.d. 2. Percocet 5/325 one tab t.i.d. 3. Lyrica 25 mg t.i.d. 4. Nitroglycerin 0.4 mg sublingual q.5 minutes p.r.n. 5. ProAir 1 puff inhaled q.4 hours p.r.n. 6. Alprazolam 0.25 mg q.6 hours p.r.n. 7. Sertraline 50 mg q.p.m. 8. Singulair 10 mg q.p.m. 9. Flexeril 10 mg t.i.d. p.r.n. 10. Atorvastatin 40 mg at bedtime. 11. Combivent Respimat 1 puff inhaled 4 times daily. 12. Warfarin 5 mg q.p.m. 13. Myrbetriq 50 mg q.a.m. 14. Metoprolol succinate XL 25 mg q.a.m. 15. Lisinopril 10 mg q.a.m. 16. Levothyroxine 75 mcg q.a.m. 17. Diltiazem CD 240 mg q.a.m. 18. Aspirin 81 mg q.a.m. ALLERGIES: Include GABAPENTIN. FAMILY HISTORY: Significant for 2 brothers with coronary artery disease. SOCIAL HISTORY: She reports a former smoking history with approximately 2 packs per day smoking over 40 years, now in remission. She denies any alcohol or illicit drug use. She lives at [facility]. Her daughter, Yaima Jiménez , is her surrogate decision maker in the event of emergency. Her brother, Kit Euceda, is her secondary decision maker. REVIEW OF SYSTEMS: A 12-point review of systems was completed. All pertinent positives and negatives as per HPI. All those not mentioned are negative. PHYSICAL EXAMINATION VITAL SIGNS: Temperature 99, heart rate 88, respiratory rate 20, blood pressure 102/60, and O2 saturation 93% on 5 L nasal cannula. HEENT: Head is atraumatic, normocephalic. Face is symmetrical. Pupils are equal and round with a right eye cataract. Sclerae are anicteric. Oral mucosa is moist. NECK: Supple with full range of motion. No lymphadenopathy appreciated. No JVD noted. No carotid bruits auscultated. LUNGS: There are inspiratory rhonchi with crackles noted in the right middle and lower lobes. CARDIOVASCULAR: Regular rate and rhythm with normal S1, S2 heart sounds. There is a systolic murmur that is heard best along the right upper sternal border that radiates into the carotids. ABDOMEN: Soft with tenderness to the lower abdomen, more so in the mid to left lower quadrant. No signs of distention. Bowel sounds are normoactive. There is no CVA tenderness. MUSCULOSKELETAL: There is no clubbing or cyanosis. Full range of motion is present in all joints. She is able to reposition herself in bed without assistance. There is no edema. NEURO: She is alert and oriented x3. She is able to answer appropriately. No focal deficits. Speech is clear and fluent. She follows commands. SKIN: Warm and dry. Ecchymotic areas noted to the extremities, but no open wounds noted. DIAGNOSTIC STUDIES/LAB DATA: CBC: WBC 13.9, hemoglobin 11.6, hematocrit 36, platelet count 196. INR 3.41. Chemistry: Sodium 137, potassium 3.7, chloride 101, carbon dioxide 30, BUN 12, creatinine 0.85, glucose 110, lactic acid 0.7, calcium 9.1, magnesium 2.0. Total bilirubin 0.6, AST 21, ALT 19, alk phos 63. Total CK 309, troponin 0.01, CRP 103, BNP 180. Lipase was less than 10. Chest x-ray as per above. CT of the abdomen and pelvis, which has recently resulted, shows mucosal thickening of the descending colon-sigmoid colon junction in the left lower quadrant, which may represent diverticulitis, although underlying neoplastic process is not totally ruled out. EKG shows PVCs, sinus rhythm. No significant ST elevations or T-wave inversions. Old medical records were reviewed. ASSESSMENT AND PLAN: This is a 63-year-old female who presented today with concerns for shortness of breath and abdominal pain thought to be secondary to likely diverticulitis in its early stages and a community-acquired pneumonia that is positive for Strep pneumo. 1. Sepsis secondary to dual infection of diverticulitis and pneumonia. She meets sepsis criteria on admission by SIRS criteria with elevated WBC count and altered mental status and by SOFA criteria based on white blood cell count and MAP <65 while in ED. She has been receiving fluid resuscitation, has received ceftriaxone and azithromycin in the ER. We will switch her to Zosyn, which will cover both lung and abdominal pathogens. She should have followup with her primary care provider and GI as an outpatient to further investigate the bowel mucosal thickening to ensure that there are no neoplastic processes in place; however, given her presentation, we will treat her as if she has diverticulitis. 2. Acute hypoxic respiratory failure. This is secondary to her right middle lobe pneumonia. I will add on a swallow study as she does report coughing and some dysphagia on occasion, although it does appear that she has a community- acquired source, so this seems less likely in this setting. She is typically on 3 L and now requiring 5 L, so this is an acute on chronic process likely secondary to her newly diagnosed pneumonia. 3. Supratherapeutic INR. We will hold her warfarin tonight and check an INR tomorrow. Resume warfarin depending on the results. 4. Chronic obstructive pulmonary disease. Continue home inhalers. She does not appear to be in acute exacerbation. She did receive steroids in the ER. I did not appreciate any overt wheezing and so we will not continue these at this time, but these can be resumed if necessary. 5. For history of atrial fibrillation, continue home metoprolol and warfarin as well as diltiazem. 6. For chronic pain syndrome, continue Percocet and p.r.n. Flexeril. 7. Hypertension. Currently normotensive. We will continue the medications, but with hold parameters in the setting of acute infection. We will hold lisinopril. Continue metoprolol with hold parameters. Continue diltiazem with hold parameters. 8. Depression. Continue Zoloft. 9. Peripheral vascular disease. Continue aspirin, Plavix, and statin. 10. FEN: She is ordered clear liquids, may advance as tolerated to a low-fat diet. 11. DVT prophylaxis: INR is supratherapeutic and she is on warfarin, which we will continue. 12. Code status: Full code. She does not have any advance directives. 13. Disposition: Admit to medical floor. Anticipate discharge to home when medically stable. TIME SPENT: Approximately 60 minutes was spent on this admission with more than half that time spent [id number] with the patient obtaining history and physical, performing physical examination, and reviewing the plan of care. Plan of care was also reviewed with my attending, Dr. Mckeon, who is in agreement. MEÑO GRAMAJO NP [id number]/CPS #: [id number] FERMÍN
[2019-05-02] MEDS: Mometasone/Formoter 200/5 MDI INH SCH (19:44)
[2019-05-02] MEDS: Albuterol/Ipratropium NEB.SOL* Albuterol 2.5 MG/Ipratropium 0.5 MG 3 ML INH SCH ×2 (19:47→22:10)
[2019-05-02] MEDS: Pregabalin CAP(*) 25 MG PO SCH ×2 (20:11→20:31)
[2019-05-02] MEDS: oxyCODONE/Acetamin 5/325 MG* TAB PO SCH (20:30)
[2019-05-02] MEDS: Atorvastatin* 40 MG TAB PO SCH (20:31)
[2019-05-02] MEDS: ALPRAZolam TAB* 0.25 MG PO PRN (20:50)
[2019-05-03] MEDS: ZOSYN 3.375 GM Q8H per EXTENDED INFUSION IVPB SCH ×4 (00:39→08:27)
[2019-05-03] MEDS: Levothyroxine TAB* 75 MCG TAB PO SCH (05:32)
[2019-05-03 06:07] LABS: ABS Lymphocytes 0.8 10^3/ul (1.0-4.8); ABS Monocytes 0.6 10^3/ul (0-0.8); ABS Neutrophils 8.8 10^3/ul (1.5-7.7); Hematocrit 33 % (35-47); Hemoglobin 10.9 g/dL (12.0-16.0); Lymphocyte % 7.7 %; Mean Corpuscular HGB Conc 33 g/dL (31-36); Mean Corpuscular Hemoglobin 28 pg (27-31); Mean Corpuscular Volume 84 fL (80-97); Mean Platelet Volume 8.6 fL (7.4-10.4); Platelet Count 170 10^3/uL (150-450); Red Blood Count 3.94 10^6 /uL (3.70-4.87); Red Cell Distribution Width 16 % (10-15); White Blood Count 10.2 10^3/uL (3.5-10.8)
[2019-05-03 06:11] LABS: INR 3.14 (0.82-1.09)
[2019-05-03 06:26] LABS: BUN/Creatinine Ratio 15.9 (8-20); Calcium 8.8 mg/dL (8.6-10.3); EGFR African American 103.3 (>60); EGFR Non-African American 85.4 (>60); Potassium 3.9 mmol/L (3.5-5.0)
[2019-05-03] MEDS: Albuterol/Ipratropium NEB.SOL* Albuterol 2.5 MG/Ipratropium 0.5 MG 3 ML INH SCH ×3 (07:33→19:11)
[2019-05-03] MEDS: Mometasone/Formoter 200/5 MDI INH SCH ×2 (07:35→19:12)
[2019-05-03] MEDS: Pregabalin CAP(*) 25 MG PO SCH ×3 (08:27→21:18)
[2019-05-03] MEDS: Aspirin EC TAB* 81 MG TAB.EC PO SCH (08:28)
[2019-05-03] MEDS: Metoprolol Succinate XL TAB* 25 MG PO SCH (08:28)
[2019-05-03] MEDS: oxyCODONE/Acetamin 5/325 MG* TAB PO SCH ×3 (08:28→21:18)
[2019-05-03] MEDS ORDERED: Metoprolol Succinate XL TAB* 25 MG PO SCH (09:00)
[2019-05-03] MEDS ORDERED: Diltiazem CD CAP* 240 MG PO SCH (09:00)
[2019-05-03] MEDS ORDERED: Lisinopril TAB* 10 MG PO SCH (09:00)
[2019-05-03] MEDS: NF:Mirabegron (NF) 50 MG TAB PO SCH (09:13)
[2019-05-03] MEDS: Cyclobenzaprine TAB* 10 MG PO PRN ×2 (14:39→21:25)
[2019-05-03] MEDS: cefTRIAXone(*) 2 GM in NS 0.9% 100 ML* 100 ML IVPB SCH (16:19)
--- NOTE | 2019-05-03 16:26 | PN ---
Subjective Date of Service: 05/03/19 Interval History: Reports cough. C/o abd cramps pain and sob.Reports no improvement from last night Objective Active Medications: Acetaminophen (Tylenol Tab*) 650 mg PO Q4H PRN PRN Reason: FEVER/PAIN Albuterol (Ventolin Hfa Inhaler*) 1 puff INH Q4H PRN PRN Reason: WHEEZING Albuterol/Ipratropium (Duoneb (Albuterol 2.5 Mg/Ipratropium 0.5 Mg)) 1 neb INH RT.[id number] AWAKE [facility] Alprazolam (Xanax Tab*) 0.25 mg PO Q6H PRN PRN Reason: ANXIETY Last Admin: 05/02/19 20:50 Dose: 0.25 mg Aspirin (Aspirin Ec Tab*) 81 mg PO QAM [facility] Last Admin: 05/03/19 08:28 Dose: 81 mg Atorvastatin Calcium (Lipitor*) 40 mg PO BEDTIME [facility] Last Admin: 05/02/19 20:31 Dose: 40 mg Cyclobenzaprine HCl (Flexeril Tab*) 10 mg PO TID PRN PRN Reason: SPASMS Last Admin: 05/03/19 14:39 Dose: 10 mg Metronidazole/Sodium Chloride (Flagyl 500 Mg Ivpb*) 500 mg in 100 mls @ 100 mls /hr IVPB Q8H [facility] Ceftriaxone Sodium 2 gm/ (Sodium Chloride) 100 mls @ 200 mls/hr IVPB Q24H [facility] Levothyroxine Sodium (Synthroid Tab*) 75 mcg PO 0600 [facility] Last Admin: 05/03/19 05:32 Dose: 75 mcg Metoprolol Succinate (Toprol Xl Tab*) 25 mg PO QAM [facility] Last Admin: 05/03/19 08:28 Dose: 25 mg Mirabegron (Myrbetriq (Nf)) 50 mg PO QAM [facility] Last Admin: 05/03/19 09:13 Dose: Not Given Mometasone Furoate/Formoterol Fumar (Dulera 200/5 Mdi*) 2 puff INH BID [facility]; Protocol Last Admin: 05/03/19 07:35 Dose: 2 puff Montelukast Sodium (Singulair Tab*) 10 mg PO BEDTIME [facility] Ondansetron HCl (Zofran Inj*) 4 mg IV Q6H PRN PRN Reason: NAUSEA/VOMITING Oxycodone/Acetaminophen (Percocet 5/325 Tab*) 1 tab PO TID [facility] Last Admin: 05/03/19 14:36 Dose: 1 tab Pharmacy Consult (Zosyn Per Pharmacy*) 1 note FOLLOW UP .ZOSYN PER PHARMACY [facility] Pregabalin (Lyrica Cap(*)) 25 mg PO TID [facility] Last Admin: 05/03/19 14:36 Dose: 25 mg Sertraline HCl (Zoloft*) 200 mg PO BEDTIME [facility] Vital Signs - 8 hr 05/03/19 05/03/19 05/03/19 08:27 08:28 10:40 Pulse Rate Respiratory 16 16 16 Rate O2 Sat by Pulse Oximetry 05/03/19 05/03/19 05/03/19 11:37 13:11 14:36 Pulse Rate 98 Respiratory 16 16 16 Rate O2 Sat by Pulse 94 Oximetry 05/03/19 14:39 Pulse Rate Respiratory 16 Rate O2 Sat by Pulse Oximetry Oxygen Devices in Use Now: Nasal Cannula Eyes: No Scleral Icterus Respiratory: Symmetrical Chest Expansion and Respiratory Effort, Clear to Auscultation Abdominal: - - pain on palpation of lower abd quadrant Extremities: No Edema Neurological: Alert and Oriented x 3 Result Diagrams: 05/03/19 05:58 05/03/19 05:58 Microbiology and Other Data: Microbiology 05/02/19 12:00 Gram Stain - Final Sputum Sputum Culture - Preliminary Streptococcus Pneumoniae 05/02/19 12:35 Aerobic Blood Culture - Preliminary Blood Venous No Growth Day 1 Anaerobic Blood Culture - Preliminary No Growth Day 1 05/02/19 12:35 Aerobic Blood Culture - Preliminary Blood Venous No Growth Day 1 Anaerobic Blood Culture - Preliminary No Growth Day 1 05/03/19 08:05 Gram Stain - Final Sputum Expectorated Assess/Plan/Problems-Billing Assessment: - Patient Problems (1) Pneumonia Current Visit: Yes Status: Acute Code(s): J18.9 - PNEUMONIA, UNSPECIFIED ORGANISM SNOMED Code(s): 538638148 Comment: strep pneumo pneumonia on zosyn but still sob will switch to ceftriaxone to cover strep pneumo and hold zosyn (2) Diverticulitis Current Visit: Yes Status: Acute Code(s): K57.92 - DVTRCLI OF INTEST, PART UNSP, W/O PERF OR ABSCESS W/O BLEED SNOMED Code(s): 575309032 Comment: will hold zosyn and switch to ceftriaxone, flagyl poss h/o ischemic colilitis? will get records.reports 2 stents in the abd arteries but unable to give more info (3) A-fib Current Visit: Yes Status: Acute Code(s): I48.91 - UNSPECIFIED ATRIAL FIBRILLATION SNOMED Code(s): 65140523 Comment: rate controlled with metoprolol diltiazem currently on hold can add if further rate control needed (4) Hypertension Current Visit: Yes Status: Acute Code(s): I10 - ESSENTIAL (PRIMARY) HYPERTENSION SNOMED Code(s): 92058760 Comment: continue metoprolol bp in 120s lisinopril and diltiazem on hold
[2019-05-03] MEDS: metroNIDAZOLE IV 500 MG/100ML* 500 MG/100 ML BAG IVPB SCH (17:03)
[2019-05-03] MEDS: guaiFENesin LIQ* 100 MG/5 ML UDC PO PRN (21:18)
[2019-05-03] MEDS: Atorvastatin* 40 MG TAB PO SCH (21:19)
[2019-05-03] MEDS: Sertraline* 100 MG TAB PO SCH (21:19)
[2019-05-03] MEDS: Montelukast Sodium TAB* 10 MG PO SCH (21:19)
[2019-05-03] MEDS: Albuterol HFA INHALER* 8 gm MDI INH PRN (23:52)
[2019-05-03] MEDS: ALPRAZolam TAB* 0.25 MG PO PRN (23:58)
[2019-05-04] MEDS: metroNIDAZOLE IV 500 MG/100ML* 500 MG/100 ML BAG IVPB SCH ×3 (01:04→17:49)
[2019-05-04] MEDS: Albuterol/Ipratropium NEB.SOL* Albuterol 2.5 MG/Ipratropium 0.5 MG 3 ML INH SCH ×4 (01:22→19:20)
[2019-05-04] MEDS: Levothyroxine TAB* 75 MCG TAB PO SCH (06:23)
[2019-05-04 06:55] LABS: ABS Eosinophils 0.1 10^3/ul (0-0.6); ABS Lymphocytes 1.9 10^3/ul (1.0-4.8); ABS Monocytes 0.6 10^3/ul (0-0.8); ABS Neutrophils 5.4 10^3/ul (1.5-7.7); Hematocrit 32 % (35-47); Hemoglobin 10.7 g/dL (12.0-16.0); Lymphocyte % 23.9 %; Mean Corpuscular HGB Conc 33 g/dL (31-36); Mean Corpuscular Hemoglobin 28 pg (27-31); Mean Corpuscular Volume 85 fL (80-97); Mean Platelet Volume 8.4 fL (7.4-10.4); Nucleated Red Blood Cells % 0.1; Platelet Count 177 10^3/uL (150-450); Red Blood Count 3.81 10^6 /uL (3.70-4.87); Red Cell Distribution Width 16 % (10-15)
[2019-05-04 06:59] LABS: INR 2.61 (0.82-1.09)
[2019-05-04 07:10] LABS: BUN/Creatinine Ratio 11.9 (8-20); EGFR African American 106.9 (>60); EGFR Non-African American 88.3 (>60); Potassium 3.9 mmol/L (3.5-5.0)
[2019-05-04] MEDS: Mometasone/Formoter 200/5 MDI INH SCH ×2 (07:36→19:39)
[2019-05-04] MEDS: oxyCODONE/Acetamin 5/325 MG* TAB PO SCH ×3 (08:57→21:25)
[2019-05-04] MEDS: Metoprolol Succinate XL TAB* 25 MG PO SCH (08:58)
[2019-05-04] MEDS: guaiFENesin LIQ* 100 MG/5 ML UDC PO PRN ×2 (08:59→21:23)
[2019-05-04] MEDS: Aspirin EC TAB* 81 MG TAB.EC PO SCH (08:59)
[2019-05-04] MEDS: Pregabalin CAP(*) 25 MG PO SCH ×3 (09:00→21:24)
[2019-05-04] MEDS: NF:Mirabegron (NF) 50 MG TAB PO SCH (09:00)
[2019-05-04] MEDS: Cyclobenzaprine TAB* 10 MG PO PRN ×2 (13:33→21:28)
--- NOTE | 2019-05-04 14:43 | PN ---
Subjective Date of Service: 05/04/19 Interval History: Reports improvement in breathing and cough.Abd pain somewhat improved but still has severe cramps Objective Active Medications: Acetaminophen (Tylenol Tab*) 650 mg PO Q4H PRN PRN Reason: FEVER/PAIN Albuterol (Ventolin Hfa Inhaler*) 1 puff INH Q4H PRN PRN Reason: WHEEZING Last Admin: 05/03/19 23:52 Dose: 1 puff Albuterol/Ipratropium (Duoneb (Albuterol 2.5 Mg/Ipratropium 0.5 Mg)) 1 neb INH [id number] AWAKE [facility] Last Admin: 05/04/19 13:54 Dose: 1 neb Alprazolam (Xanax Tab*) 0.25 mg PO Q6H PRN PRN Reason: ANXIETY Last Admin: 05/03/19 23:58 Dose: 0.25 mg Aspirin (Aspirin Ec Tab*) 81 mg PO QAM [facility] Last Admin: 05/04/19 08:59 Dose: 81 mg Atorvastatin Calcium (Lipitor*) 40 mg PO BEDTIME [facility] Last Admin: 05/03/19 21:19 Dose: 40 mg Benzonatate (Tessalon Cap*) 100 mg PO BID PRN PRN Reason: cough Cyclobenzaprine HCl (Flexeril Tab*) 10 mg PO TID PRN PRN Reason: SPASMS Last Admin: 05/04/19 13:33 Dose: 10 mg Guaifenesin (Robitussin*) 10 ml PO Q6H PRN PRN Reason: DRY COUGH Last Admin: 05/04/19 08:59 Dose: 10 ml Metronidazole/Sodium Chloride (Flagyl 500 Mg Ivpb*) 500 mg in 100 mls @ 100 mls /hr IVPB Q8H [facility] Last Admin: 05/04/19 08:57 Dose: 100 mls/hr Ceftriaxone Sodium 2 gm/ (Sodium Chloride) 100 mls @ 200 mls/hr IVPB Q24H [facility] Last Admin: 05/03/19 16:19 Dose: 200 mls/hr Levothyroxine Sodium (Synthroid Tab*) 75 mcg PO 0600 [facility] Last Admin: 05/04/19 06:23 Dose: 75 mcg Metoprolol Succinate (Toprol Xl Tab*) 25 mg PO QAM [facility] Last Admin: 05/04/19 08:58 Dose: 25 mg Mirabegron (Myrbetriq (Nf)) 50 mg PO QAM [facility] Last Admin: 05/04/19 09:00 Dose: Not Given Mometasone Furoate/Formoterol Fumar (Dulera 200/5 Mdi*) 2 puff INH BID [facility]; Protocol Last Admin: 05/04/19 07:36 Dose: 2 puff Montelukast Sodium (Singulair Tab*) 10 mg PO BEDTIME [facility] Last Admin: 05/03/19 21:19 Dose: 10 mg Ondansetron HCl (Zofran Inj*) 4 mg IV Q6H PRN PRN Reason: NAUSEA/VOMITING Oxycodone/Acetaminophen (Percocet 5/325 Tab*) 1 tab PO TID [facility] Last Admin: 05/04/19 13:29 Dose: 1 tab Pharmacy Consult (Zosyn Per Pharmacy*) 1 note FOLLOW UP .ZOSYN PER PHARMACY [facility] Pregabalin (Lyrica Cap(*)) 25 mg PO TID [facility] Last Admin: 05/04/19 13:28 Dose: 25 mg Sertraline HCl (Zoloft*) 200 mg PO BEDTIME [facility] Last Admin: 05/03/19 21:19 Dose: 200 mg Vital Signs - 8 hr 05/04/19 05/04/19 05/04/19 07:15 07:36 08:00 Temperature 97.8 F Pulse Rate 92 85 Respiratory 18 16 18 Rate Blood Pressure 132/92 (mmHg) O2 Sat by Pulse 93 98 Oximetry 05/04/19 05/04/19 05/04/19 08:57 09:00 11:10 Temperature Pulse Rate Respiratory 18 18 18 Rate Blood Pressure (mmHg) O2 Sat by Pulse Oximetry 05/04/19 05/04/19 05/04/19 11:13 12:56 12:57 Temperature 98.9 F Pulse Rate 84 Respiratory 18 18 18 Rate Blood Pressure 148/83 (mmHg) O2 Sat by Pulse 99 Oximetry 05/04/19 05/04/19 05/04/19 13:28 13:29 13:33 Temperature Pulse Rate Respiratory 18 18 18 Rate Blood Pressure (mmHg) O2 Sat by Pulse Oximetry 05/04/19 13:58 Temperature Pulse Rate 99 Respiratory 16 Rate Blood Pressure (mmHg) O2 Sat by Pulse 98 Oximetry Oxygen Devices in Use Now: Nasal Cannula Ears/Nose/Mouth/Throat: NL Teeth, Lips, Gums Neck: NL Appearance and Movements; NL JVP Respiratory: Symmetrical Chest Expansion and Respiratory Effort, Clear to Auscultation Cardiovascular: NL Sounds; No Murmurs; No JVD, RRR Abdominal: - - min tenderness to palpation lower abd quadrants,no rebound no guarding Extremities: No Edema Neurological: Alert and Oriented x 3 Result Diagrams: 05/04/19 06:46 05/04/19 06:46 Microbiology and Other Data: Microbiology 05/02/19 12:00 Gram Stain - Final Sputum Sputum Culture - Preliminary Streptococcus Pneumoniae 05/02/19 12:35 Aerobic Blood Culture - Preliminary Blood Venous No Growth Day 1 Anaerobic Blood Culture - Preliminary No Growth Day 1 05/02/19 12:35 Aerobic Blood Culture - Preliminary Blood Venous No Growth Day 1 Anaerobic Blood Culture - Preliminary No Growth Day 1 05/03/19 08:05 Gram Stain - Final Sputum Expectorated Assess/Plan/Problems-Billing Assessment: - Patient Problems (1) Pneumonia Current Visit: Yes Status: Acute Code(s): J18.9 - PNEUMONIA, UNSPECIFIED ORGANISM SNOMED Code(s): 106511619 Comment: strep pneumo pneumonia was onn zosyn but still sob switched to ceftriaxone to cover strep pneumo and zosyn held yesterday with improvement (2) Diverticulitis Current Visit: Yes Status: Acute Code(s): K57.92 - DVTRCLI OF INTEST, PART UNSP, W/O PERF OR ABSCESS W/O BLEED SNOMED Code(s): 067249160 Comment: switched to ceftriaxone and flagyl with some improvement poss h/o ischemic colilitis/mesenteric ischemia? will need get records.reports 2 stents in the abd arteries but unable to give more info.10 [address] dr chacon:zak bradley if no improvement, eval for ischemic colitis and pt has had extensive abd surgery.CT says need eval to r/o neoplasm as well. reports that she has an outpt GI eval on the .If no improvement in symptoms, consider GI or surgical evaluation (3) A-fib Current Visit: Yes Status: Acute Code(s): I48.91 - UNSPECIFIED ATRIAL FIBRILLATION SNOMED Code(s): 18797485 Comment: rate controlled with metoprolol diltiazem currently on hold can add if further rate control needed (4) Hypertension Current Visit: Yes Status: Acute Code(s): I10 - ESSENTIAL (PRIMARY) HYPERTENSION SNOMED Code(s): 51244532 Comment: continue metoprolol bp in 120s-130s lisinopril and diltiazem on hold can restart if bp climbing
[2019-05-04] MEDS ORDERED: NS 0.9% 100 ML* 100 ML ONE (15:57)
[2019-05-04] MEDS: cefTRIAXone(*) 2 GM in NS 0.9% 100 ML* 100 ML IVPB SCH (16:17)
[2019-05-04] MEDS: Atorvastatin* 40 MG TAB PO SCH (21:23)
[2019-05-04] MEDS: Sertraline* 100 MG TAB PO SCH (21:24)
[2019-05-04] MEDS: Montelukast Sodium TAB* 10 MG PO SCH (21:24)
[2019-05-05] MEDS: metroNIDAZOLE IV 500 MG/100ML* 500 MG/100 ML BAG IVPB SCH ×3 (01:05→16:51)
[2019-05-05] MEDS: Albuterol/Ipratropium NEB.SOL* Albuterol 2.5 MG/Ipratropium 0.5 MG 3 ML INH SCH ×4 (01:09→19:18)
[2019-05-05] MEDS: Levothyroxine TAB* 75 MCG TAB PO SCH (05:55)
[2019-05-05 06:40] LABS: ABS Eosinophils 0.2 10^3/ul (0-0.6); ABS Lymphocytes 1.8 10^3/ul (1.0-4.8); ABS Monocytes 0.6 10^3/ul (0-0.8); ABS Neutrophils 3.3 10^3/ul (1.5-7.7); Hematocrit 34 % (35-47); Hemoglobin 11.4 g/dL (12.0-16.0); Lymphocyte % 29.5 %; Mean Corpuscular HGB Conc 33 g/dL (31-36); Mean Corpuscular Hemoglobin 28 pg (27-31); Mean Corpuscular Volume 85 fL (80-97); Mean Platelet Volume 8.5 fL (7.4-10.4); Nucleated Red Blood Cells % 0.1; Platelet Count 192 10^3/uL (150-450); Red Blood Count 4.05 10^6 /uL (3.70-4.87); Red Cell Distribution Width 16 % (10-15); White Blood Count 5.9 10^3/uL (3.5-10.8)
[2019-05-05 06:41] LABS: INR 1.53 (0.82-1.09)
[2019-05-05 06:55] LABS: BUN/Creatinine Ratio 13.6 (8-20); Calcium 9.1 mg/dL (8.6-10.3); EGFR African American 108.8 (>60); EGFR Non-African American 89.9 (>60); Potassium 4.3 mmol/L (3.5-5.0)
[2019-05-05] MEDS: Mometasone/Formoter 200/5 MDI INH SCH ×2 (07:47→20:11)
[2019-05-05] MEDS: Aspirin EC TAB* 81 MG TAB.EC PO SCH (09:41)
[2019-05-05] MEDS: Metoprolol Succinate XL TAB* 25 MG PO SCH (09:41)
[2019-05-05] MEDS: oxyCODONE/Acetamin 5/325 MG* TAB PO SCH ×3 (09:41→21:18)
[2019-05-05] MEDS: guaiFENesin LIQ* 100 MG/5 ML UDC PO PRN ×2 (09:42→21:33)
[2019-05-05] MEDS: Pregabalin CAP(*) 25 MG PO SCH ×3 (09:42→21:17)
[2019-05-05] MEDS: Cyclobenzaprine TAB* 10 MG PO PRN ×3 (09:42→21:27)
[2019-05-05] MEDS: NF:Mirabegron (NF) 50 MG TAB PO SCH (09:43)
--- NOTE | 2019-05-05 10:51 | PN ---
Subjective Date of Service: 05/05/19 Interval History: Patient had a large BM, and reports she feels better, has abdominal pain- though she states is improved 3/10, at the LLQ, there is no nausea, no vomiting. Does have cough, but SOB has improved, no chest pain Objective Active Medications: Acetaminophen (Tylenol Tab*) 650 mg PO Q4H PRN PRN Reason: FEVER/PAIN Albuterol (Ventolin Hfa Inhaler*) 1 puff INH Q4H PRN PRN Reason: WHEEZING Last Admin: 05/03/19 23:52 Dose: 1 puff Albuterol/Ipratropium (Duoneb (Albuterol 2.5 Mg/Ipratropium 0.5 Mg)) 1 neb INH [id number] AWAKE [facility] Last Admin: 05/05/19 07:47 Dose: 1 neb Alprazolam (Xanax Tab*) 0.25 mg PO Q6H PRN PRN Reason: ANXIETY Last Admin: 05/03/19 23:58 Dose: 0.25 mg Aspirin (Aspirin Ec Tab*) 81 mg PO QAM [facility] Last Admin: 05/05/19 09:41 Dose: 81 mg Atorvastatin Calcium (Lipitor*) 40 mg PO BEDTIME [facility] Last Admin: 05/04/19 21:23 Dose: 40 mg Benzonatate (Tessalon Cap*) 100 mg PO BID PRN PRN Reason: cough Cyclobenzaprine HCl (Flexeril Tab*) 10 mg PO TID PRN PRN Reason: SPASMS Last Admin: 05/05/19 09:42 Dose: 10 mg Guaifenesin (Robitussin*) 10 ml PO Q6H PRN PRN Reason: DRY COUGH Last Admin: 05/05/19 09:42 Dose: 10 ml Metronidazole/Sodium Chloride (Flagyl 500 Mg Ivpb*) 500 mg in 100 mls @ 100 mls /hr IVPB Q8H [facility] Last Admin: 05/05/19 09:43 Dose: 100 mls/hr Ceftriaxone Sodium 2 gm/ (Sodium Chloride) 100 mls @ 200 mls/hr IVPB Q24H [facility] Last Admin: 05/04/19 16:17 Dose: 200 mls/hr Levothyroxine Sodium (Synthroid Tab*) 75 mcg PO 0600 [facility] Last Admin: 05/05/19 05:55 Dose: 75 mcg Metoprolol Succinate (Toprol Xl Tab*) 25 mg PO QAM [facility] Last Admin: 05/05/19 09:41 Dose: 25 mg Mirabegron (Myrbetriq (Nf)) 50 mg PO QAM [facility] Last Admin: 05/05/19 09:43 Dose: Not Given Mometasone Furoate/Formoterol Fumar (Dulera 200/5 Mdi*) 2 puff INH BID [facility]; Protocol Last Admin: 05/05/19 07:47 Dose: 2 puff Montelukast Sodium (Singulair Tab*) 10 mg PO BEDTIME [facility] Last Admin: 05/04/19 21:24 Dose: 10 mg Ondansetron HCl (Zofran Inj*) 4 mg IV Q6H PRN PRN Reason: NAUSEA/VOMITING Oxycodone/Acetaminophen (Percocet 5/325 Tab*) 1 tab PO TID [facility] Last Admin: 05/05/19 09:41 Dose: 1 tab Pharmacy Consult (Zosyn Per Pharmacy*) 1 note FOLLOW UP .ZOSYN PER PHARMACY [facility] Pregabalin (Lyrica Cap(*)) 25 mg PO TID [facility] Last Admin: 05/05/19 09:42 Dose: 25 mg Sertraline HCl (Zoloft*) 200 mg PO BEDTIME [facility] Last Admin: 05/04/19 21:24 Dose: 200 mg Warfarin Sodium (Coumadin Tab(*)) 5 mg PO DAILY@1700 [facility]; Protocol Vital Signs - 8 hr 05/05/19 05/05/19 05/05/19 03:50 04:51 07:15 Temperature 97.7 F 97.9 F Pulse Rate 75 93 Respiratory 16 16 20 Rate Blood Pressure 148/79 172/99 (mmHg) O2 Sat by Pulse 97 97 Oximetry 05/05/19 05/05/19 05/05/19 07:48 09:41 09:42 Temperature Pulse Rate 86 Respiratory 18 18 18 Rate Blood Pressure (mmHg) O2 Sat by Pulse 95 Oximetry Oxygen Devices in Use Now: Nasal Cannula Appearance: Sitting on bed, not in distress Respiratory: - - tachypnea, scattered rhonchi Cardiovascular: No Edema, - - no chest wall tenderness, irregularly irregular. Abdominal: NL Sounds; No Tenderness; No Distention Neurological: Alert and Oriented x 3 Result Diagrams: 05/05/19 05:55 05/05/19 05:55 Microbiology and Other Data: Microbiology 05/02/19 12:00 Sputum Gram Stain - Final 05/02/19 12:00 Sputum Sputum Culture - Preliminary Streptococcus Pneumoniae 05/02/19 12:35 Blood Venous Aerobic Blood Culture - Preliminary No Growth Day 2 05/02/19 12:35 Blood Venous Anaerobic Blood Culture - Preliminary No Growth Day 2 05/02/19 12:35 Blood Venous Aerobic Blood Culture - Preliminary No Growth Day 2 05/02/19 12:35 Blood Venous Anaerobic Blood Culture - Preliminary No Growth Day 2 05/03/19 08:05 Sputum Expectorated Gram Stain - Final Assess/Plan/Problems-Billing Assessment: 63 Female, Atrial fib, chronic hypoxic failure on home oxygen, here with pneumonia and diverticulitis - Patient Problems (1) A-fib Current Visit: Yes Status: Acute Code(s): I48.91 - UNSPECIFIED ATRIAL FIBRILLATION SNOMED Code(s): 47696085 Comment: Rate controlled with metoprolol, adding diltiazem at 120mg (home dose 240mg CD) restart coumadin as INR is < 2. (2) Diverticulitis Current Visit: Yes Status: Acute Code(s): K57.92 - DVTRCLI OF INTEST, PART UNSP, W/O PERF OR ABSCESS W/O BLEED SNOMED Code(s): 617318676 Comment: Improved, continue rocephin, flagyl will need repeat CT in 4-6 weeks to re-eval for possible malignancy (3) Hypertension Current Visit: Yes Status: Acute Code(s): I10 - ESSENTIAL (PRIMARY) HYPERTENSION SNOMED Code(s): 74441516 Comment: continue metoprolol BP elevated in 170's adding diltiazem lisinopril being held. (4) Pneumonia Current Visit: Yes Status: Acute Code(s): J18.9 - PNEUMONIA, UNSPECIFIED ORGANISM SNOMED Code(s): 821352415 Comment: Rocephin and flagyl (5) History of COPD Current Visit: No Status: Chronic Priority: Medium Code(s): Z87.09 - PERSONAL HISTORY OF OTHER DISEASES OF THE RESPIRATORY SYSTEM SNOMED Code(s): 964264568 Comment: stable. Status and Disposition: Discussed assessment and plan with daughter via phone and patient in detail Continue antibiotics, cough medication Anticipate discharge in few days as she is improving.
[2019-05-05] MEDS: Albuterol HFA INHALER* 8 gm MDI INH PRN (11:31)
[2019-05-05] MEDS ORDERED: NS 0.9% 100 ML* 100 ML ONE (14:14)
[2019-05-05] MEDS: Benzonatate CAP* 100 MG PO PRN (14:20)
[2019-05-05] MEDS: cefTRIAXone(*) 2 GM in NS 0.9% 100 ML* 100 ML IVPB SCH (16:14)
[2019-05-05] MEDS ORDERED: Warfarin TAB(*) 5 MG PO SCH (17:00)
[2019-05-05] MEDS: Sertraline* 100 MG TAB PO SCH (21:18)
[2019-05-05] MEDS: Atorvastatin* 40 MG TAB PO SCH (21:18)
[2019-05-05] MEDS: ALPRAZolam TAB* 0.25 MG PO PRN (21:27)
[2019-05-05] MEDS: Montelukast Sodium TAB* 10 MG PO SCH (21:28)
[2019-05-06] MEDS: Albuterol/Ipratropium NEB.SOL* Albuterol 2.5 MG/Ipratropium 0.5 MG 3 ML INH SCH (01:14)
[2019-05-06] MEDS: metroNIDAZOLE IV 500 MG/100ML* 500 MG/100 ML BAG IVPB SCH ×3 (02:27→17:11)
[2019-05-06] MEDS: Levothyroxine TAB* 75 MCG TAB PO SCH (06:01)
[2019-05-06] MEDS ORDERED: Albuterol/Ipratropium NEB.SOL* Albuterol 2.5 MG/Ipratropium 0.5 MG 3 ML INH PRN (06:16)
[2019-05-06 07:13] LABS: INR 1.18 (0.82-1.09)
[2019-05-06] MEDS: Mometasone/Formoter 200/5 MDI INH SCH ×2 (07:49→19:13)
[2019-05-06] MEDS: Pregabalin CAP(*) 25 MG PO SCH ×3 (09:42→21:45)
[2019-05-06] MEDS: Cyclobenzaprine TAB* 10 MG PO PRN ×4 (09:43→22:52)
[2019-05-06] MEDS: Metoprolol Succinate XL TAB* 25 MG PO SCH (09:43)
[2019-05-06] MEDS: Aspirin EC TAB* 81 MG TAB.EC PO SCH (09:43)
[2019-05-06] MEDS: oxyCODONE/Acetamin 5/325 MG* TAB PO SCH ×2 (09:43→13:47)
[2019-05-06] MEDS: Diltiazem CD CAP* 120 MG PO SCH (09:45)
[2019-05-06] MEDS: NF:Mirabegron (NF) 50 MG TAB PO SCH (09:46)
--- NOTE | 2019-05-06 10:06 | PN ---
Subjective Date of Service: 05/06/19 Interval History: Doing better, SOB improved, no chest pain, reports cough has improved as well. No fevers overnight. Abdominal pain improved, no nausea, no vomiting. Objective Active Medications: Acetaminophen (Tylenol Tab*) 650 mg PO Q4H PRN PRN Reason: FEVER/PAIN Albuterol (Ventolin Hfa Inhaler*) 1 puff INH Q4H PRN PRN Reason: WHEEZING Last Admin: 05/05/19 11:31 Dose: 1 puff Albuterol/Ipratropium (Duoneb (Albuterol 2.5 Mg/Ipratropium 0.5 Mg)) 1 neb INH Q4H PRN PRN Reason: SOB/WHEEZING Last Admin: 05/06/19 07:49 Dose: 1 neb Alprazolam (Xanax Tab*) 0.25 mg PO Q6H PRN PRN Reason: ANXIETY Last Admin: 05/05/19 21:27 Dose: 0.25 mg Aspirin (Aspirin Ec Tab*) 81 mg PO QAM COUNTS INCLUDE 234 BEDS AT THE [facility] Last Admin: 05/06/19 09:43 Dose: 81 mg Atorvastatin Calcium (Lipitor*) 40 mg PO BEDTIME COUNTS INCLUDE 234 BEDS AT THE [facility] Last Admin: 05/05/19 21:18 Dose: 40 mg Benzonatate (Tessalon Cap*) 100 mg PO BID PRN PRN Reason: cough Last Admin: 05/05/19 14:20 Dose: 100 mg Cyclobenzaprine HCl (Flexeril Tab*) 10 mg PO TID PRN PRN Reason: SPASMS Last Admin: 05/06/19 09:45 Dose: 10 mg Diltiazem HCl (Cardizem Cd Cap*) 120 mg PO DAILY COUNTS INCLUDE 234 BEDS AT THE [facility] Last Admin: 05/06/19 09:45 Dose: 120 mg Guaifenesin (Robitussin*) 10 ml PO Q4H PRN PRN Reason: DRY COUGH Last Admin: 05/05/19 21:33 Dose: 10 ml Metronidazole/Sodium Chloride (Flagyl 500 Mg Ivpb*) 500 mg in 100 mls @ 100 mls /hr IVPB Q8H [facility]S INCLUDE 234 BEDS AT THE [facility] Last Admin: 05/06/19 09:46 Dose: 100 mls/hr Ceftriaxone Sodium 2 gm/ (Sodium Chloride) 100 mls @ 200 mls/hr IVPB Q24H [facility]S INCLUDE 234 BEDS AT THE [facility] Last Admin: 05/05/19 16:14 Dose: 200 mls/hr Levothyroxine Sodium (Synthroid Tab*) 75 mcg PO 0600 [facility]S INCLUDE 234 BEDS AT THE [facility] Last Admin: 05/06/19 06:01 Dose: 75 mcg Metoprolol Succinate (Toprol Xl Tab*) 25 mg PO QAM [facility]S INCLUDE 234 BEDS AT THE [facility] Last Admin: 05/06/19 09:43 Dose: 25 mg Mirabegron (Myrbetriq (Nf)) 50 mg PO QAM [facility]S INCLUDE 234 BEDS AT THE [facility] Last Admin: 05/06/19 09:46 Dose: Not Given Mometasone Furoate/Formoterol Fumar (Dulera 200/5 Mdi*) 2 puff INH BID [facility]S INCLUDE 234 BEDS AT THE [facility]; Protocol Last Admin: 05/06/19 07:49 Dose: 2 puff Montelukast Sodium (Singulair Tab*) 10 mg PO BEDTIME [facility]S INCLUDE 234 BEDS AT THE [facility] Last Admin: 05/05/19 21:28 Dose: 10 mg Ondansetron HCl (Zofran Inj*) 4 mg IV Q6H PRN PRN Reason: NAUSEA/VOMITING Oxycodone/Acetaminophen (Percocet 5/325 Tab*) 1 tab PO TID [facility]S INCLUDE 234 BEDS AT THE [facility] Last Admin: 05/06/19 09:43 Dose: 1 tab Pharmacy Consult (Zosyn Per Pharmacy*) 1 note FOLLOW UP .ZOSYN PER PHARMACY COUNTS INCLUDE 234 BEDS AT THE [facility] Pregabalin (Lyrica Cap(*)) 25 mg PO TID [facility]S INCLUDE 234 BEDS AT THE [facility] Last Admin: 05/06/19 09:42 Dose: 25 mg Sertraline HCl (Zoloft*) 200 mg PO BEDTIME [facility]S INCLUDE 234 BEDS AT THE [facility] Last Admin: 05/05/19 21:18 Dose: 200 mg Warfarin Sodium (Coumadin Tab(*)) 5 mg PO DAILY@1700 [facility]S [facility]CLUDE 234 BEDS AT THE [facility]; Protocol Last Admin: 05/05/19 17:16 Dose: 5 mg Vital Signs - 8 hr 05/06/19 05/06/19 05/06/19 03:09 07:55 09:42 Temperature 97.9 F Pulse Rate 77 82 Respiratory 20 18 10 Rate Blood Pressure 155/93 (mmHg) O2 Sat by Pulse 97 98 Oximetry 05/06/19 05/06/19 09:43 09:45 Temperature Pulse Rate Respiratory 18 18 Rate Blood Pressure (mmHg) O2 Sat by Pulse Oximetry Oxygen Devices in Use Now: Nasal Cannula Appearance: Elderly female sitting on bed, not in distress. Eyes: PERRLA Respiratory: - - scattered rhonchi Cardiovascular: NL Sounds; No Murmurs; No JVD, RRR, No Edema Abdominal: NL Sounds; No Tenderness; No Distention, No Hepatosplenomegaly Extremities: No Edema Neurological: Alert and Oriented x 3 Result Diagrams: 05/05/19 05:55 05/05/19 05:55 Microbiology and Other Data: Microbiology Microbiology 05/03/19 08:05 Gram Stain - Final Sputum Expectorated Sputum Culture - Final Esbl Escherichia Coli 05/02/19 12:00 Gram Stain - Final Sputum Sputum Culture - Final Streptococcus Pneumoniae 05/02/19 12:35 Aerobic Blood Culture - Preliminary Blood Venous No Growth Day 3 Anaerobic Blood Culture - Preliminary No Growth Day 3 05/02/19 12:35 Aerobic Blood Culture - Preliminary Blood Venous No Growth Day 3 Anaerobic Blood Culture - Preliminary No Growth Day 3 Assess/Plan/Problems-Billing Assessment: 63 Female, Atrial fib, chronic hypoxic failure on home oxygen, here with pneumonia and diverticulitis - Patient Problems (1) A-fib Current Visit: Yes Status: Acute Code(s): I48.91 - UNSPECIFIED ATRIAL FIBRILLATION SNOMED Code(s): 51422756 Comment: Rate controlled with metoprolol, diltiazem at 120mg (home dose 240mg CD) restarted 05/05 coumadin as INR is < 2, INR subtherapeutic due to holding cardizem for few days, will give 7.5mg coumadin today (home dose is 5mg) (2) Diverticulitis Current Visit: Yes Status: Acute Code(s): K57.92 - DVTRCLI OF INTEST, PART UNSP, W/O PERF OR ABSCESS W/O BLEED SNOMED Code(s): 899201115 Comment: Improved, continue flagyl, d/c rocephin today, add levaquin to cover ESBL in sputum, will need repeat CT in 4-6 weeks to re-eval for possible malignancy (3) Hypertension Current Visit: Yes Status: Acute Code(s): I10 - ESSENTIAL (PRIMARY) HYPERTENSION SNOMED Code(s): 90210281 Comment: continue metoprolol diltiazem added back 05/05 lisinopril being held. (4) Pneumonia Current Visit: Yes Status: Acute Code(s): J18.9 - PNEUMONIA, UNSPECIFIED ORGANISM SNOMED Code(s): 607880704 Comment: ESBL and S. Pneumoniae in sputum, change abx to levaquin. d/c rocephin. (5) History of COPD Current Visit: No Status: Chronic Priority: Medium Code(s): Z87.09 - PERSONAL HISTORY OF OTHER DISEASES OF THE RESPIRATORY SYSTEM SNOMED Code(s): 222627030 Comment: stable. Status and Disposition: d/c mary anticipate discharge home in 1-2 days
[2019-05-06] MEDS: Levofloxacin 500 MG IVPREMIX(* 500 MG/100 ML BAG IVPB SCH (12:17)
[2019-05-06] MEDS: guaiFENesin LIQ* 100 MG/5 ML UDC PO PRN (13:49)
[2019-05-06] MEDS ORDERED: Acetaminophen TAB* 325 MG PO PRN (14:46)
[2019-05-06] MEDS ORDERED: Warfarin TAB(*) 7.5 MG PO SCH (17:00)
[2019-05-06] MEDS: ALPRAZolam TAB* 0.25 MG PO PRN (21:44)
[2019-05-06] MEDS: Montelukast Sodium TAB* 10 MG PO SCH (21:44)
[2019-05-06] MEDS: Atorvastatin* 40 MG TAB PO SCH (21:44)
[2019-05-06] MEDS: Sertraline* 100 MG TAB PO SCH (21:44)
[2019-05-06] MEDS: Benzonatate CAP* 100 MG PO PRN (21:45)
[2019-05-06] MEDS: oxyCODONE/Acetamin 5/325 MG* TAB PO PRN (22:51)
[2019-05-07] MEDS: metroNIDAZOLE IV 500 MG/100ML* 500 MG/100 ML BAG IVPB SCH ×2 (01:02→09:24)
[2019-05-07] MEDS: Levothyroxine TAB* 75 MCG TAB PO SCH (05:59)
[2019-05-07] MEDS: Mometasone/Formoter 200/5 MDI INH SCH (08:40)
[2019-05-07] MEDS: Pregabalin CAP(*) 25 MG PO SCH ×2 (09:23→13:43)
[2019-05-07] MEDS: Diltiazem CD CAP* 120 MG PO SCH (09:23)
[2019-05-07] MEDS: Metoprolol Succinate XL TAB* 25 MG PO SCH (09:23)
[2019-05-07] MEDS: NF:Mirabegron (NF) 50 MG TAB PO SCH (09:24)
[2019-05-07] MEDS: Aspirin EC TAB* 81 MG TAB.EC PO SCH (09:24)
[2019-05-07] MEDS: Cyclobenzaprine TAB* 10 MG PO PRN ×2 (09:33→13:44)
[2019-05-07] MEDS: oxyCODONE/Acetamin 5/325 MG* TAB PO PRN ×2 (09:34→13:44)
[2019-05-07] MEDS: Levofloxacin 500 MG IVPREMIX(* 500 MG/100 ML BAG IVPB SCH (10:27)
[2019-05-07] MEDS: Benzonatate CAP* 100 MG PO PRN (10:27)
[2019-05-07] MEDS: guaiFENesin LIQ* 100 MG/5 ML UDC PO PRN (10:27)
[2019-05-07 11:40] VITALS: BP 159/81
--- NOTE | 2019-05-07 15:02 | DS ---
CC: Dr. Miguel Parmar; Dr. Lucia Leon DISCHARGE SUMMARY: DATE OF ADMISSION: 05/02/19 DATE OF DISCHARGE: 05/07/19 PRIMARY CARE PROVIDER: Dr. Miguel Parmar. REASON FOR THE ADMISSION: Abdominal pain and shortness of breath. DISCHARGE DIAGNOSES: Include: 1. Pneumonia 2. Diverticulitis. 3. History of atrial fibrillation. 4. History of chronic anticoagulation. 5. History of hypertension 6. History of chronic obstructive pulmonary disease, on home oxygen. 7. History of coronary artery disease, with stent placement HOSPITAL COURSE: This is a 63-year-old female with past medical history of COPD with chronic hypoxic respiratory failure, on 3 L nasal cannula; coronary artery disease with recent stent in 2018; peripheral vascular disease; congestive heart failure with aortic stenosis, who was admitted to the hospital with a diagnosis of sepsis secondary due to infection of diverticulitis and pneumonia. Sepsis has been ruled out. The patient was found to have pneumonia as seen on x-ray, and was found to have diverticulitis, the patient was started on broad spectrum antibiotics and IV fluids were given. The patient was found to have right middle lobe pneumonia. Swallowing evaluation was done, and the patient was started on higher level of oxygen, was requiring 5 L of nasal cannula. Sputum cultures were ordered. Sputum culture grew ESBL as well as Strep pneumo. Antibiotics were subsequently changed to levofloxacin and Flagyl to cover for pneumonia as well as diverticulitis. Initially, the INR was supratherapeutic and Coumadin was held. Subsequently, the INR improved and Coumadin was resumed. Initial INR was 3.41. The patient was also started on IV fluids, slowly we were able to wean off the oxygen to her home level of 3 L. The patient's CAT scan revealed diverticulitis with mucosal thickening. There is focal thickening, radiologist recommended obtaining repeat CT after the treatment to rule out neoplasm. Initially, the patient's blood pressure medication were also held, we have resumed patient's home medication. The patient was able to tolerate regular diet, the patient was able to ambulate without any issues. The patient's cough also improved. The patient has been afebrile for the past 48 hours. PHYSICAL EXAM: Today, blood pressure of 159/81, heart rate of 87, respiratory rate of 18, pulse ox of 92% on 2 L nasal cannula. General: This is a well- developed, well-nourished female lying in bed, in no distress. Heart: Irregularly irregular, no murmurs. Lungs: There is scattered wheezing. There is no tachypnea. No use of accessory muscles. The patient is on oxygen. Abdomen: Bowel sounds are normoactive in all 4 quadrants. Abdomen is soft, nontender, nondistended. Neurological: Alert and oriented x3 with no focal neurological deficit. Extremities: There is no lower extremity edema. No calf tenderness. DISCHARGE MEDICATIONS: New medications include: Levofloxacin 500 mg tablets for the next 5 days as well as Flagyl 500 mg 3 times a day for the next 5 days as well. Discharge medications include: 1. Albuterol 1 puff inhaled every 4 hours as needed. 2. Alprazolam 0.25 mg every 6 hours as needed for anxiety 3. Aspirin 81 mg daily. 4. Atorvastatin 40 mg daily. 5. Budesonide/formoterol 160/4.5 two puffs inhaled twice a day. 6. Cyclobenzaprine 10 mg 3 times a day as needed. 7. Cardizem 240 mg daily. 8. Levothyroxine 75 mcg daily. 9. Metoprolol succinate 25 mg daily. 10. Mirabegron 50 mg in the morning. 11. Montelukast 10 mg at nighttime. 12. Oxycodone 1 tablet 3 times a day as needed, 5/325 mg. 13. Lyrica 25 mg 3 times a day. 14. Sertraline 200 mg at bedtime 15. Coumadin 5 mg daily. 16. Lisinopril 10 mg daily. 17. Levofloxacin 500mg daily X 5 days 18. Flagyl 500mg three times a day, X 5 days. DIET: The patient has been instructed to use low residue diet. DISCHARGE INSTRUCTIONS: DISPOSITION: The patient is to be discharged home with the caregiver at home is family members. CONDITION: Stable. The patient is to follow up with primary care doctor, Dr. Miguel Parmar in 1 to 3 days. The patient is to follow up with Dr. Leon on 06/10/19. The patient is to call the primary care provider to schedule followup appointment. The patient is to call primary care provider to arrange for an INR check. The patient is instructed to return to the emergency room for fever, worsening cough or abdominal pain. The patient is to follow up with the GI appointment as scheduled. The patient has been instructed as she needs a repeat CT of the abdomen in 4 to 6 weeks. DISCHARGE DIAGNOSIS: Includes sepsis, ruled out. ADDITIONAL DIAGNOSES: Include: 1. Right middle lobe pneumonia. 2. Diverticulitis. 3. Acute on chronic respiratory failure with hypoxia, resolved, present on admission. 4. History of atrial fibrillation, on Coumadin. 5. Essential hypertension. 6. History of chronic obstructive pulmonary disease. 7. History of coronary artery disease with stent. [id number]/[facility] #: [id number] [facility]fe[facility]i
== END 2019-05-07 15:10 | disposition home or self-care (01) | DRG 193 ==
LOC: ED 11:25 → UNDOADMOB 15:22 → MED 15:22 → INTOOBSV 05-03 10:43 → OBSVTOIN 05-03 10:43 → UNDODISIN 05-07 15:10
PROVIDERS: ADMIT Internal Medicine; ATTEND Internal Medicine
DX: J13 Pneumonia due to Streptococcus pneumoniae (principal); J96.21 Acute and chronic respiratory failure with hypoxia; J44.1 Chronic obstructive pulmonary disease with (acute) exacerbation; K57.92 Diverticulitis of intestine, part unspecified, without perforation or abscess without bleeding; I11.0 Hypertensive heart disease with heart failure; I50.9 Heart failure, unspecified; Z99.81 Dependence on supplemental oxygen; G89.4 Chronic pain syndrome; I73.9 Peripheral vascular disease, unspecified; I48.91 Unspecified atrial fibrillation; I25.10 Atherosclerotic heart disease of native coronary artery without angina pectoris; M54.2 Cervicalgia; I35.0 Nonrheumatic aortic (valve) stenosis; E03.9 Hypothyroidism, unspecified; F32.9 Major depressive disorder, single episode, unspecified; R79.1 Abnormal coagulation profile; Z95.5 Presence of coronary angioplasty implant and graft; Z79.01 Long term (current) use of anticoagulants; Z79.82 Long term (current) use of aspirin; Z79.51 Long term (current) use of inhaled steroids; Z79.899 Other long term (current) drug therapy; Z88.8 Allergy status to other drugs, medicaments and biological substances; Z82.49 Family history of ischemic heart disease and other diseases of the circulatory system; Z87.891 Personal history of nicotine dependence
CPT/HCPCS: 36415; 71046; 74177; 80048; 80053; 81003; 82550; 83605; 83690; 83735; 83880; 84484; 85025; 85610; 85730; 86140; 87040; 87070; 87077; 87186; 87205; 93005; 94640; 99285; A9270-GY; G0378; G8978-GP-CI; G8979-GP-CI; G8980-GP-CI; G8987-GO-CI; G8988-GO-CI; G8989-GO-CI; G8996-GN-CJ; G8997-GN-CJ; G8998-GN-CJ; J0456; J0696; J1956; J2270; J2405; J2543; J2930; Q9967

== ENCOUNTER 2019-07-04 10:22 | Inpatient (IN) | payer MEDICARE ==
--- NOTE | 2019-07-04 10:30 | ED ---
Shortness of Breath - HPI Summary HPI Summary: This patient is a 64 year old female with a Hx of COPD brought in by EMS presenting to [facility] with a chief complaint of shortness of breath since yesterday. She states she was decorating her apartment when she took a rest on the bed and then got back up and she felt like her heart was racing and SOB. This morning she states she was feeling wheezy. She reports hot flashes. The patient reports a productive cough. She states she normally coughs but that it has been getting worse. She reports pinprick pain in her buttocks intermittently that is old. She has a Hx of thyroid disease and 3 stents. Medications reviewed. Allergies noted. - History of Current Complaint Hx Obtained From: Patient Onset/Duration: Gradual Onset, Lasting Hours Associated Signs & Symptoms: Cough (Productive) - Risk Factors Pseudomonas: Chronic Lung Disease - Allergy/Home Medications Allergies/Adverse Reactions: Allergies Allergy/AdvReac Type Severity Reaction Status Date / Time gabapentin AdvReac Severe Memory Verified 07/04/19 10:33 Issues Home Medications: Home Medications Albuterol/Ipratropium RESP(NF) [Combivent Respimat(NF)] 1 inh PO QID 07/04/19 [ History Confirmed 07/04/19] Fluticas/Salmet 115/21 HFA(NF) [Advair HFA 115/21 (NF)] 1 puff INH BID 07/04/19 [History Confirmed 07/04/19] PMH/Surg Hx/FS Hx/Imm Hx Endocrine/Hematology History: Reports: Hx Anticoagulant Therapy, Hx Thyroid Disease - Hypothyroid, Hx Anemia Denies: Hx Diabetes Cardiovascular History: Reports: Hx Angioplasty, Hx Coronary Artery Disease, Hx Deep Vein Thrombosis, Hx Hypercholesterolemia, Hx Hypertension, Hx Peripheral Vascular Disease, Other Cardiovascular Problems/Disorders - VASCULAR DISEASE ON LEGS AND ABD (PVD) Denies: Hx Pacemaker/ICD Respiratory History: Reports: Hx Asthma, Hx Chronic Obstructive Pulmonary Disease (COPD) - pt reports on 2L O2 when laying down at home, Hx Pneumonia - 2017, Hx Seasonal Allergies, Other Respiratory Problems/Disorders - COLLAPSED LUNG 30 YRS AGO AND COPD GI History: Reports: Hx Diverticulosis - 09/29/18, Hx Gastroesophageal Reflux Disease, Hx Hiatal Hernia - with bowel loop, Other GI Disorders - bowel necrosis and surgery 4 YEARS AGO Denies: Hx Crohn's Disease, Hx Gall Bladder Disease, Hx Gastrointestinal Bleed, Hx Jaundice, Hx Obstructive Bowel, Hx Pyloric Stenosis History: Reports: Hx Kidney Stones - 09/29/18, Other Problems/Disorders - frequent UTI Musculoskeletal History: Reports: Hx Arthritis, Hx Back Problems - chronic, Hx Orthopedic Injury, Other Musculoskeletal History - arthritis, degenerative disk in neck, R SHOULDER PAIN Sensory History: Reports: Hx Cataracts, Hx Contacts or Glasses - GLASSES, Hx Hearing Problem - NOME Denies: Hx Eye Injury, Hx Eye Prosthesis, Hx Glaucoma, Hx Legally Blind, Hx Macular Degeneration, Hx Vision Problem, Hx Deafness, Hx Hearing Aid Opthamlomology History: Reports: Hx Cataracts, Hx Contacts or Glasses - GLASSES Denies: Hx Eye Injury, Hx Eye Prosthesis, Hx Glaucoma, Hx Legally Blind, Hx Macular Degeneration, Hx Vision Problem Neurological History: Reports: Other Neuro Impairments/Disorders - tingling down left arm from arthritis Psychiatric History: Reports: Hx Anxiety, Hx Depression, Hx Panic Disorder - Cancer History Cancer Type, Location and Year: None reported Hx Chemotherapy: No Hx Radiation Therapy: No Hx Palliative Cancer Treatment: No - Surgical History Surgery Procedure, Year, and Place: LT LEG SURGERY 2006, RT SHOULDER 4-11, RT SHOULDER 4-12 AT [place], right femoral angioplasty, 10/2013, [place], recent bowel resection December 2013, R LEG--[place]; [facility] [place] Sep.28 Hernia Repair Hx Anesthesia Reactions: No - Immunization History Date of Tetanus Vaccine: Unkown Infectious Disease History: Reports: Hx Tuberculosis - 10 YEARS, History Other Infectious Disease - Klebsiella P. in urine Denies: Hx Clostridium Difficile, Hx Hepatitis, Hx of Known/Suspected MRSA, Hx Shingles, Hx Known/Suspected VRE, Hx Known/Suspected VRSA - Family History Known Family History: Negative: Hypertension, Diabetes - Social History Alcohol Use: None Hx Substance Use: Yes Substance Use Type: Reports: Prescribed Substance Use Comment - Amount & Last Used: have (+) for opiod and benzodiazepine. Hx Tobacco Use: Yes Smoking Status (MU): Former Smoker Type: Cigarettes Amount Used/How Often: 2 ppd Length of Time of Smoking/Using Tobacco: 40 Have You Smoked in the Last Year: No Review of Systems Positive: Palpitations Positive: Shortness Of Breath, Cough Positive: Other - Buttocks pain All Other Systems Reviewed And Are Negative: Yes Physical Exam - Summary Physical Exam Summary: Constitutional: Well-developed, Well-nourished, Alert. (-) Distressed Skin: Warm, Dry HENT: Normocephalic; Atraumatic Eyes: Conjunctiva normal Neck: Musculoskeletal ROM normal neck. (-) JVD, (-) Stridor, (-) Tracheal deviation Cardio: Rhythm regular, rate normal, Heart sounds normal; Intact distal pulses; The pedal pulses are 2+ and symmetric. Radial pulses are 2+ and symmetric. (-) Murmur Pulmonary/Chest wall: Effort normal. (-) Respiratory distress, Ronchi in the right upper lung field. She is speaking in full sentences without retractions. Abd: Soft, (-) tenderness, (-) Distension, (-) Guarding, (-) Rebound Musculoskeletal: (-) Edema Lymph: (-) Cervical adenopathy Neuro: Alert, Oriented x3. Psych: Mood and affect Normal Triage Information Reviewed: Yes Vital Signs On Initial Exam: Temp Pulse Resp BP Pulse Ox 101.3 F 96 19 124/67 95 07/04/19 10:42 07/04/19 10:29 07/04/19 10:29 07/04/19 10:29 07/04/19 10:29 Vital Signs Reviewed: Yes Diagnostics - Vital Signs Temp Pulse Resp BP Pulse Ox 101.3 F 96 19 124/67 95 07/04/19 10:42 07/04/19 10:29 07/04/19 10:29 07/04/19 10:29 07/04/19 10:29 - Laboratory Result Diagrams: 07/04/19 11:07 07/04/19 11:07 Lab Statement: Any lab studies that have been ordered have been reviewed, and results considered in the medical decision making process. - Radiology CXR Radiology Interpretation Completed By: Radiologist Summary of Radiographic Findings: Patchy bibasilar atelctasis versus early consolidation. ED Provider has reviewed this report. - EKG 1036 Cardiac Rate: NL EKG Rhythm: Sinus Rhythm - 96 BPM Course/Dx - Course Course Of Treatment: She is here with worsening shortness of breath secondary to pneumonia. Patient is high risk given her age and COPD status. Patient was offered a breathing treatment but declined. Patient has a leukocytosis with a normal lactate. Patient was given Rocephin and azithromycin and Solu-Medrol. Patient was admitted to the hospital. - Diagnoses Provider Diagnoses: PNA (pneumonia) - Physician Notifications Discussed Care of Patient With: Suzie Barlow - Hospitalist Time Discussed With Above Provider: 12:31 Instructed by Provider To: Admit As Inpatient Discharge ED - Sign-Out/Discharge Documenting (check all that apply): Patient Departure - Admission Patient Received Moderate/Deep Sedation with Procedure: No - Discharge Plan Condition: Stable Disposition: ADMITTED TO [facility] - Billing Disposition and Condition Condition: STABLE Disposition: Admitted to [facility] - Attestation Statements Document Initiated by Scribe: Yes Documenting Scribe: Viral Fu Provider For Whom Scribe is Documenting (Include Credential): Hieu Alcantar MD Scribe Attestation: Viral Slade scribed for Hieu Alcantar MD on 07/04/19 at 1356. Scribe Documentation Reviewed: Yes Provider Attestation: The documentation as recorded by the Viral mcduffie accurately reflects the service I personally performed and the decisions made by Hieu barrios MD Status of Scribe Document: Viewed
--- OUTSIDE RECORDS SUMMARY | 2019-07-04 10:49 | XMS REPORT | Continuity of Care Document ---
:1955 External Reference #:[id number] Author Name Lucia Leon MD Address [address] [place] [address] Care Team Providers Name Role Phone Miguel Parmar MD - Family Medicine Care Team Information Mortgage Loan Specialist Chrissie Hendricks MD Care Team Information Mortgage Loan Specialist [phone] Problems Active Problems Provider Date Essential hypertension JENNIFER Del Cid Onset: 07/31/2016 Iron deficiency anemia Kathleen Henson PA-C Onset: 02/25/2019 Social History Type Date Description Comments Sex Unknown ETOH Use Denies alcohol use Tobacco Use Start: Unknown End: Unknown Patient is a former smoker Smoking Status Reviewed: 06/10/19 Patient is a former smoker Allergies, Adverse Reactions, Alerts Active Allergies Reaction Severity Comments Date Gabapentin 06/10/2019 Inactive Allergies NKDA 07/31/2016 Medications Active Medications SIG Qnty Indications Ordering Date Provider Suprep Bowel Prep Kit as directed 1units Lucia 06/10/2019 MD Carolyn 17.5-3.13-1.6GM/177ML Solution Symbicort Unknown 160-4.5mcg/Act Aerosol Lyrica take one capsule Unknown 25mg Capsules by mouth twice a day; maximum daily dose = 2 Combivent Respimat qid Unknown 20-100mcg/Act Aerosol Atorvastatin Calcium hs Unknown 40mg Tablets Warfarin Sodium Unknown 5mg Tablets Aspirin Adult Low Dose 1 by mouth every Unknown 81mg day Tablets DR Rogers Daily Unknown 50mg Tablets ER 24HR Metoprolol Succinate ER Daily Unknown 25mg Tablets ER 24HR Levothyroxine Sodium Unknown 75mcg Tablets Dilt-XR 1 by mouth every Unknown 240mg Caps ER 24HR day Sertraline HCL 2 AT hs [facility], 100mg Pennie, [employer] Tablets Lisinopril [facility], Miguel T, 10mg Tablets Cyclobenzaprine HCL Garg, 10mg Gayla TWX OPERATOR Tablets Alprazolam [facility], Miguel T, 0.25mg Tablets Oxycodone-Acetaminophen Garg, Gayla, TWX OPERATOR 5-325mg Tablets Montelukast Sodium [facility], Miguel T, 10mg Tablets History Medications Suprep Bowel Prep Kit use as directed as 354ml Lucia 03/05/2019 - on printed MD Carolyn 06/09/2019 17.5-3.13-1.6GM/177ML instructions given Solution to patient. patient may administer to self in preparation for procedures Immunizations Description No Information Available Vital Signs Date Vital Result Comment 06/10/2019 1:17pm Height 67 inches 5'7" Weight 178.00 lb BP Systolic 122 mmHg BP Diastolic 69 mmHg Heart Rate 71 /min BMI (Body Mass Index) 27.9 kg/m2 02/25/2019 3:11pm Height 67 inches 5'7" Weight 183.00 lb BP Systolic 130 mmHg BP Diastolic 74 mmHg Heart Rate 76 /min BMI (Body Mass Index) 28.7 kg/m2 Results Test Date Facility Test Result H/L Range Note Laboratory test 02/17/2019 [facility] Occult Blood <pending> finding #1 Screen CMP(!) 02/13/2019 [facility] Sodium(!) <pending> Potassium(!) <pending> Chloride Serum/Plasma(!) <pending> Carbon Dioxide Ser/Plasm(!) <pending> BUN - Urea Nitrogen(!) <pending> Calcium Ser/Plasma Mass/Vol(!) <pending> Creatinine Serum Mass/Vol(!) <pending> Glucose Serum(!) <pending> BUN/Creatinine Ratio(!) <pending> Albumin Serum/Plasma(!) <pending> Alkaline Phosphatase(!) <pending> Bilirubin Total Mass/Vol(!) <pending> Ast - Sgot <pending> Alt - SGPT <pending> Protein Total <pending> Iron/Uibc/Tibc/%Sat 02/13/2019 [facility] Iron-Total <pending> Iron-Uibc <pending> Iron Binding Capacity Mass/Vol <pending> % Iron Saturation <pending> Laboratory test 02/13/2019 [facility] Ferritin Ser/Plas <pending> finding Mass/Vol(!) Vitamin B12 Ser Mass/Vol <pending> TSH Thyroid Stim Hormone(!) <pending> CBC W/Auto 02/13/2019 [facility] White Blood <pending> Differential(!) Count Ser Auto CNT RBC Red Blood Count <pending> Hemoglobin Blood <pending> Hematocrit <pending> MCV (Corpuscular Volume) <pending> MCH (Corpuscular Hemoglobin) <pending> MCHC (Corpuscular Hemog Conc) <pending> RDW <pending> Platelet Count Blood Auto CNT <pending> MPV <pending> Lymph% <pending> Mckenzie% <pending> Neutrophil % <pending> Absolute Lymphocytes <pending> Absolute Monocytes <pending> Absolute Neutrophils <pending> Procedures Description No Information Available Medical Devices Description No Information Available Encounters Type Date Location Provider Dx Diagnosis Office Visit 02/25/2019 Gastroenterology Kathleen Bueno D50.9 Iron deficiency 3:[facility]p [facility] H[facility] PA-C anemia, unspecified Assessments Date Code Description Provider 06/10/2019 D50.9 Iron deficiency anemia, unspecified Lucia Leon MD 06/10/2019 K57.32 Diverticulitis of large intestine Lucia Leon MD without perforation or abscess without bleeding 02/25/2019 D50.9 Iron deficiency anemia, unspecified Kathleen Henson PA-C Plan of Treatment Future Appointment(s):08/01/2019 1:00 pm - Lucia Leon MD at [facility]06/10/2019 - Lucia Leon, MDD50.9 Iron deficiency anemia, [id number] Diverticulitis of large intestine without perforation or abscess without bleeding Functional Status Description No Information Available Mental Status Description No Information Available Referrals Description No Information Available
[2019-07-04 11:26] LABS: ABS Eosinophils 0.1 10^3/ul (0-0.6); ABS Lymphocytes 1.1 10^3/ul (1.0-4.8); ABS Monocytes 1.1 10^3/ul (0-0.8); ABS Neutrophils 11.2 10^3/ul (1.5-7.7); Eosinophil % 0.8 %; Hematocrit 31 % (35-47); Hemoglobin 10.1 g/dL (12.0-16.0); Lymphocyte % 8.1 %; Mean Corpuscular HGB Conc 32 g/dL (31-36); Mean Corpuscular Hemoglobin 28 pg (27-31); Mean Corpuscular Volume 86 fL (80-97); Mean Platelet Volume 8.3 fL (7.4-10.4); Platelet Count 207 10^3/uL (150-450); Red Blood Count 3.61 10^6 /uL (3.70-4.87); Red Cell Distribution Width 15 % (10-15); White Blood Count 13.6 10^3/uL (3.5-10.8)
[2019-07-04 11:36] LABS: Calcium 8.9 mg/dL (8.6-10.3); Potassium 4.2 mmol/L (3.5-5.0); Total Bilirubin 0.3 mg/dL (0.2-1.0)
[2019-07-04 11:43] LABS: Albumin/Globulin Ratio 1.5 (1-3); BUN/Creatinine Ratio 20.4 (8-20); EGFR African American 61.4 (>60); EGFR Non-African American 50.8 (>60); Globulin 2.6 g/dL (2-4); Total Protein 6.6 g/dL (6.4-8.9); Troponin I 0.01 ng/mL (<0.04)
[2019-07-04] MEDS ORDERED: methylPREDNISolone 125 MG* 2 ML VIAL IV ONE (12:27)
[2019-07-04] MEDS ORDERED: Azithromycin 500 mg/250 ml NS 500 MG/250 ML BAG IVPB ONE (12:27)
[2019-07-04] MEDS ORDERED: cefTRIAXone(*) 1 GM in NS 0.9% 50 ML* 50 ML IVPB ONE (12:27)
[2019-07-04 12:51] LABS: INR 2.17 (0.82-1.09)
[2019-07-04] MEDS ORDERED: NS 0.9% IV ONE (12:53)
[2019-07-04] MEDS ORDERED: Ondansetron INJ* 2 MG/ML VIAL IV PRN (13:57)
[2019-07-04] MEDS ORDERED: Enoxaparin(*) 30 MG/0.3 ML SYR SUBCUT SCH (14:00)
[2019-07-04] MEDS: NS 0.9% 1000 ML** 1,000 ML IV SCH (15:19)
[2019-07-04] MEDS: Warfarin TAB(*) 5 MG PO SCH (17:38)
[2019-07-04] MEDS: Montelukast Sodium TAB* 10 MG PO SCH (17:38)
[2019-07-04] MEDS: Sertraline* 100 MG TAB PO SCH (17:38)
[2019-07-04] MEDS: Pregabalin CAP(*) 25 MG PO SCH (21:59)
[2019-07-04] MEDS: Cyclobenzaprine TAB* 10 MG PO PRN (22:00)
[2019-07-04] MEDS: Acetaminophen TAB* 325 MG PO PRN (22:00)
[2019-07-04] MEDS: Atorvastatin* 40 MG TAB PO SCH (22:00)
[2019-07-04 22:29] LABS: Urine Appearance Clear; Urine Bilirubin Negative (Negative); Urine Blood Negative (Negative); Urine Color Straw; Urine Glucose Negative (Negative); Urine Ketones Negative (Negative); Urine Nitrite Negative (Negative); Urine Protein Negative (Negative); Urine Specific Gravity 1.008 (1.010-1.030); Urine Urobilinogen Negative (Negative)
--- NOTE | 2019-07-05 01:11 | HP ---
AMENDED REPORT NOW INCLUDES DESIGNATED COSIGNER CC: Dr. Parmar * ADMISSION HISTORY AND PHYSICAL: DATE OF ADMISSION: 07/04/19 PRIMARY CARE PHYSICIAN: Dr. Parmar. PROVIDER: Josefina Herrera NP. ATTENDING PHYSICIAN: Dr. Amos.* (DICTATED BY JOSEFINA HERRERA NP) HEALTHCARE PROXY: Yaima Jiménez, daughter. CHIEF COMPLAINT: Shortness of breath. HISTORY OF PRESENT ILLNESS: This is a 64-year-old patient with past medical history significant for COPD, hypertension, PVD, and CHF, who presents to the emergency room today with shortness of breath. Starting yesterday in the morning when she was cleaning her bath and began to feel short of breath. She felt her heart racing for about a 20-minute period, though denied chest pain, pressure or tightness. She used her albuterol inhaler twice throughout the day with some mild improvement, but persistent shortness of breath. She stated wet cough started today producing clear thick mucus. Currently, she feels foggy with unclear thinking. Upon further questioning, it revealed that she had been feeling more tired than usual for the past 1 week. Pertinent positives included intermittent trouble swallowing where food can get lodged in the back of her throat, though she usually will cough it up. Also, about 1 to 2 times per day when she bends over, she gets burning feeling in her throat. She is currently on home oxygen 3 L. She states that she changes her O2 tubing once monthly and changes the humidification water once daily. ED course and treatment included IV doses of azithromycin, ceftriaxone, methylprednisolone. She also received a liter of fluid. The hospitalist were asked to evaluate the patient for admission. PAST MEDICAL HISTORY: Includes COPD with 3 L home O2, coronary artery disease with stenting in 2018, PVD, chronic pain secondary to cervicalgia, CHF, moderate aortic stenosis, hypertension, hypothyroid, depression, AFib, SMA stents, incarcerated abdominal hernia. PAST SURGICAL HISTORY: Exploratory lap in September 2018 with colectomy, left leg vascular stenting, right shoulder surgery. MEDICATIONS: Home medications include: 1. Advair 115/21 one puff inhalation b.i.d. 2. Combivent Respimat 1 inhalation p.o. 4 times daily. 3. ProAir inhaler 1 puff q.4 hours p.r.n. 4. Nitroglycerin 0.4 mg sublingually q.5 minutes p.r.n. 5. Alprazolam 0.5 mg p.o. q.6 hours p.r.n. 6. Percocet 5/325 one tab p.o. t.i.d. 7. Lyrica 25 mg p.o. t.i.d. 8. Cyclobenzaprine 10 mg p.o. t.i.d. p.r.n. 9. Sertraline 200 mg p.o. q.p.m. 10. Montelukast sodium 10 mg p.o. q.p.m. 11. Warfarin 5 mg p.o. q.p.m. 12. Atorvastatin 40 mg p.o. at bedtime. 13. Lisinopril 10 mg p.o. daily. 14. Baby aspirin 81 mg p.o. q.a.m. 15. Mirabegron 50 mg p.o. q.a.m. 16. Metoprolol succinate 25 mg p.o. q.a.m. 17. Levothyroxine 75 mcg p.o. daily. 18. Diltiazem 240 mg p.o. q.a.m. ALLERGIES: To GABAPENTIN. FAMILY HISTORY: Includes brothers with coronary artery disease. SOCIAL HISTORY: Includes former smoker 2 packs a day for the past 40 years and quit 8 years ago. Currently, she is not working. Denies any alcohol or illicit drug use. Lives in [facility] on the 9th floor by herself. REVIEW OF SYSTEMS: General: No fever or anorexia. Eyes: Blurriness due to cataract. No double vision. HEENT: Trouble swallowing as outlined in the HPI. Respiratory: See HPI. Cardiac: See HPI. GI: Denies abdominal pain, nausea, vomiting. : No frequency or burning with urination. Musculoskeletal: Intermittent radiating pain from lower back through right buttock, though denies any weakness. Skin: No rashes, lesions or ulcers. Neuro: Denies numbness and tingling. Psych: Frustration over repeated lung infection. PHYSICAL EXAMINATION GENERAL: A well-developed female with good attention to grooming. VITAL SIGNS: Temperature 101.3 rectally, 96 heart rate, 19 respirations, 93% oxygen on 3 L, 124/67 blood pressure. HEENT: Normocephalic, atraumatic. Eyes: Conjunctivae pink and moist. PERRLA. Extraocular movements intact. Oropharynx clear. Mucous membranes moist. NECK: Supple, no lymphadenopathy. RESPIRATORY: Noted expiratory rhonchi throughout bilateral lung silver, bilateral bases reveal inspiratory and expiratory fine crackles on 3 L of oxygen via nasal cannula, humidified. CARDIOVASCULAR: S1, S2 present. Heart rate regular, noted holosystolic murmur , heard loudest at the third intercostal at the sternal border. GASTROINTESTINAL: Abdomen is soft and nontender with positive bowel sounds x4. : Deferred. MUSCULOSKELETAL: No clubbing or cyanosis noted. Positive pedal pulses. Capillary refill less than 3 seconds. Able to move all extremities. NEUROLOGIC: No focal deficits appreciated. No agitation. The patient calmly in bed. SKIN: Warm and intact. DIAGNOSTIC STUDIES/LAB DATA: EKG revealed sinus rhythm with premature ventricular complexes. Chest x-ray on 07/04/19 revealed patchy bibasilar atelectasis versus consolidation. ASSESSMENT AND PLAN: Impression: This is a 64-year-old female with a past medical history significant for chronic obstructive pulmonary disease, hypertension, peripheral vascular disease, congestive heart failure, who presented to the emergency room today with pneumonia and mild chronic obstructive pulmonary disease exacerbation, perhaps thought secondary to gastroesophageal reflux disease. Hospitalists consulted for admission. 1. Bibasilar community-acquired pneumonia. The patient normally on 3 L oxygen via nasal cannula at home, currently satting 95% at rest on 3 L with no overt dyspnea, pCO2 is 62. Venous blood gas, O2 saturation 47.1. No need for additional respiratory support. Ceftriaxone 1 g IV daily, azithromycin 500 mg IV daily, and send urine for Legionella antigen. Initial doses of both IV antibiotics given in the ED. 2. Mild chronic obstructive pulmonary disease exacerbation. Prednisone 40 mg p.o. daily x5 days. DuoNebs p.r.n. Continue montelukast. 3. Hypertension. Please continue diltiazem, lisinopril and metoprolol. 4. Depression. Continue sertraline. 5. Anxiety. Continue Xanax. 6. Chronic pain secondary to cervicalgia. Continue Lyrica and cyclobenzaprine. 7. Hypothyroid. Continue Synthroid. 8. Hypercholesterolemia. Continue atorvastatin. 9. Congestive heart failure and atrial fibrillation. Continue ASA, diltiazem, metoprolol, warfarin. 10. DVT prophylaxis. The patient is already on warfarin. Initialize SCDs. 11. Code status: Full code. TIME SPENT: Time spent on the patient is 60 minutes. Case was reviewed by my attending and they agree with the plan of action. JOSEFINA HERRERA, WANG [id number]/CPS #: [id number] FERMÍN
[2019-07-05] MEDS: NS 0.9% 1000 ML** 1,000 ML IV SCH (03:39)
[2019-07-05] MEDS: ALPRAZolam TAB* 0.25 MG PO PRN (03:42)
[2019-07-05] MEDS: Levothyroxine TAB* 75 MCG TAB PO SCH (06:08)
[2019-07-05 07:00] LABS: ABS Monocytes 0.4 10^3/ul (0-0.8); ABS Neutrophils 10.1 10^3/ul (1.5-7.7); Hematocrit 35 % (35-47); Hemoglobin 11.5 g/dL (12.0-16.0); Lymphocyte % 8.5 %; Mean Corpuscular HGB Conc 33 g/dL (31-36); Mean Corpuscular Hemoglobin 28 pg (27-31); Mean Corpuscular Volume 86 fL (80-97); Mean Platelet Volume 8.4 fL (7.4-10.4); Platelet Count 209 10^3/uL (150-450); Red Blood Count 4.07 10^6 /uL (3.70-4.87); Red Cell Distribution Width 15 % (10-15); White Blood Count 11.6 10^3/uL (3.5-10.8)
[2019-07-05 07:14] LABS: BUN/Creatinine Ratio 23.2 (8-20); Calcium 9.1 mg/dL (8.6-10.3); EGFR Non-African American 85.1 (>60); Potassium 3.8 mmol/L (3.5-5.0)
[2019-07-05] MEDS: predniSONE TAB* 20 MG PO SCH (09:42)
[2019-07-05] MEDS: Pregabalin CAP(*) 25 MG PO SCH ×3 (09:42→21:20)
[2019-07-05] MEDS: Aspirin EC TAB* 81 MG TAB.EC PO SCH (09:42)
[2019-07-05] MEDS: Diltiazem CD CAP* 240 MG PO SCH (09:42)
[2019-07-05] MEDS: Metoprolol Succinate XL TAB* 25 MG PO SCH (09:42)
[2019-07-05] MEDS: Lisinopril TAB* 10 MG PO SCH (09:43)
[2019-07-05] MEDS: Cyclobenzaprine TAB* 10 MG PO PRN (09:43)
[2019-07-05] MEDS: Acetaminophen TAB* 325 MG PO PRN (09:43)
[2019-07-05] MEDS: Mirabegron (NF) 50 MG TAB PO SCH (09:52)
[2019-07-05] MEDS: oxyCODONE/Acetamin 5/325 MG* TAB PO SCH ×3 (10:09→21:20)
--- NOTE | 2019-07-05 12:08 | PN ---
Subjective Date of Service: 07/05/19 Interval History: HOSPITALIST PROGRESS NOTE Patient seen and examined at bedside. Care reviewed and d/w Mariola Diaz RN. She feels a little better today. [place] a little lightheaded and "weird" earlier today before receiving her Percocet, but felt improved after it. Dyspnea is less intense, productive cough with brown sputum still present. Family History: Unchanged from Admission Social History: Unchanged from Admission Past Medical History: Unchanged from Admission Objective Active Medications: Acetaminophen (Tylenol Tab*) 650 mg PO Q4H PRN PRN Reason: PAIN-MILD/TEMP >/= 100.4 Last Admin: 07/05/19 09:43 Dose: 650 mg Albuterol/Ipratropium (Duoneb (Albuterol 2.5 Mg/Ipratropium 0.5 Mg)) 1 neb INH Q4H PRN PRN Reason: SOB/WHEEZING Alprazolam (Xanax Tab*) 0.25 mg PO Q6H PRN PRN Reason: ANXIETY Last Admin: 07/05/19 03:42 Dose: 0.25 mg Aspirin (Aspirin Ec Tab*) 81 mg PO QAM [facility] Last Admin: 07/05/19 09:42 Dose: 81 mg Atorvastatin Calcium (Lipitor*) 40 mg PO BEDTIME [facility] Last Admin: 07/04/19 22:00 Dose: 40 mg Cyclobenzaprine HCl (Flexeril Tab*) 10 mg PO TID PRN PRN Reason: SPASMS Last Admin: 07/05/19 09:43 Dose: 10 mg Diltiazem HCl (Cardizem Cd Cap*) 240 mg PO QAM [facility] Last Admin: 07/05/19 09:42 Dose: 240 mg Azithromycin (Zithromax 500 Mg/250 Ml) 500 mg in 250 mls @ 250 mls/hr IVPB Q24H [facility] Ceftriaxone Sodium 1 gm/ (Sodium Chloride) 50 mls @ 100 mls/hr IVPB Q24H [facility] Levothyroxine Sodium (Synthroid Tab*) 75 mcg PO 0600 [facility] Last Admin: 07/05/19 06:08 Dose: 75 mcg Lisinopril (Prinivil Tab*) 10 mg PO DAILY [facility] Last Admin: 07/05/19 09:43 Dose: 10 mg Metoprolol Succinate (Toprol Xl Tab*) 25 mg PO QAM [facility] Last Admin: 07/05/19 09:42 Dose: 25 mg Mirabegron (Myrbetriq (Nf)) 50 mg PO QAM [facility] Last Admin: 07/05/19 09:52 Dose: Not Given Montelukast Sodium (Singulair Tab*) 10 mg PO QPM [facility] Last Admin: 07/04/19 17:38 Dose: 10 mg Ondansetron HCl (Zofran Inj*) 4 mg IV Q4H PRN PRN Reason: NAUSEA/VOMITING Oxycodone/Acetaminophen (Percocet 5/325 Tab*) 1 tab PO TID [facility] Last Admin: 07/05/19 10:09 Dose: 1 tab Prednisone (Deltasone Tab*) 40 mg PO DAILY [facility] Stop: 07/10/19 08:59 Last Admin: 07/05/19 09:42 Dose: 40 mg Pregabalin (Lyrica Cap(*)) 25 mg PO TID [facility] Last Admin: 07/05/19 09:42 Dose: 25 mg Sertraline HCl (Zoloft*) 200 mg PO QPM [facility] Last Admin: 07/04/19 17:38 Dose: 200 mg Warfarin Sodium (Coumadin Tab(*)) 5 mg PO 1700 [facility]; Protocol Last Admin: 07/04/19 17:38 Dose: 5 mg Vital Signs - 8 hr 07/05/19 07/05/19 07/05/19 05:15 08:00 09:42 Temperature 97.7 F Pulse Rate 100 Respiratory 16 18 20 Rate Blood Pressure 139/70 (mmHg) O2 Sat by Pulse 100 Oximetry 07/05/19 07/05/19 09:43 10:09 Temperature Pulse Rate Respiratory 20 18 Rate Blood Pressure (mmHg) O2 Sat by Pulse Oximetry Oxygen Devices in Use Now: Nasal Cannula - 3 liters Appearance: Pleasant elderly lady sitting up in bed in NAD. Eyes: No Scleral Icterus Ears/Nose/Mouth/Throat: Mucous Membranes Moist Neck: Trachea Midline Respiratory: Symmetrical Chest Expansion and Respiratory Effort, - - BS+ bilaterally with scattered rhonchi Cardiovascular: RRR - Normal S1 and S2, +SM Neurological: Alert and Oriented x 3, NL Muscle Strength and Tone Result Diagrams: 07/05/19 06:34 07/05/19 06:34 Microbiology and Other Data: Microbiology 07/04/19 11:22 Aerobic Blood Culture - Preliminary Blood Venous No Growth Day 1 Anaerobic Blood Culture - Preliminary No Growth Day 1 07/04/19 11:07 Aerobic Blood Culture - Preliminary Blood Venous No Growth Day 1 Anaerobic Blood Culture - Preliminary No Growth Day 1 07/04/19 20:09 Legionella Urinary Antigen - Final Urine Negative Legionella Antigen Streptococcus pneumoniae Ag Screen - Final Negative S. pneumo Antigen Assess/Plan/Problems-Billing Assessment: Mrs Jiménez is a 64yo F with PMH of COPD on home O2 (3 liters), CAD s/p stent to LAD in 2018, PVD s/p bilateral fem-pop bypass, SMA stent, chronic pain, diastolic CHF, moderate , HTN, hypothyroidism, depression, Afib, incarcerated abdominal hernia s/p ex lap with partial colon resection, who presented to ED with c/o dyspnea, found to have COPD exacerbation secondary to pneumonia. - Patient Problems (1) Sepsis Comment: - Met sepsis criteria on admission with tachycardia, fever, and leukocytosis. - Source is pneumonia. - Sepsis is resolved. (2) COPD exacerbation Comment: - Secondary to pneumonia. - Continue bronchodilators, steroids, Ceftriaxone and Zithromax. (3) PNA (pneumonia) Comment: - Continue Ceftriaxone and Zithromax. - Legionella and Pneumococcal Ag are negative. - Blood cultures show no growth so far. - Check sputum culture. (4) Chronic respiratory failure with hypoxia Comment: - Secondary to COPD, on home O2. (5) CAD (coronary artery disease) Comment: - Stable. - Continue Aspirin, atorvastatin, metoprolol. (6) Hypertension Comment: - Controlled - continue metoprolol, diltiazem, lisinopril. (7) Anxiety Comment: - Continue (8) Depression Comment: - Continue Sertraline. (9) Diastolic congestive heart failure Comment: - Stable. - Continue Metoprolol and Lisinopril. (10) A-fib Comment: - In NSR. - Continue Metoprolol, diltiazem, and Warfarin. (11) Hypothyroid Comment: - Continue Levothyroxine. (12) DVT prophylaxis Comment: - Warfarin. (13) Full code status Status and Disposition: Change to inpatient.
[2019-07-05] MEDS: Azithromycin 500 mg/250 ml NS 500 MG/250 ML BAG IVPB SCH (14:00)
[2019-07-05] MEDS: Albuterol/Ipratropium NEB.SOL* Albuterol 2.5 MG/Ipratropium 0.5 MG 3 ML INH PRN (15:45)
[2019-07-05] MEDS: cefTRIAXone(*) 1 GM in NS 0.9% 50 ML* 50 ML IVPB SCH (16:54)
[2019-07-05] MEDS: Warfarin TAB(*) 5 MG PO SCH (16:59)
[2019-07-05] MEDS: Montelukast Sodium TAB* 10 MG PO SCH (16:59)
[2019-07-05] MEDS: Sertraline* 100 MG TAB PO SCH (16:59)
[2019-07-05] MEDS: Atorvastatin* 40 MG TAB PO SCH (21:19)
[2019-07-06] MEDS: ALPRAZolam TAB* 0.25 MG PO PRN (00:25)
[2019-07-06] MEDS: Levothyroxine TAB* 75 MCG TAB PO SCH (05:25)
[2019-07-06] MEDS: Pregabalin CAP(*) 25 MG PO SCH ×3 (08:14→21:21)
[2019-07-06] MEDS: predniSONE TAB* 20 MG PO SCH (08:16)
[2019-07-06] MEDS: Metoprolol Succinate XL TAB* 25 MG PO SCH (08:17)
[2019-07-06] MEDS: Lisinopril TAB* 10 MG PO SCH (08:17)
[2019-07-06] MEDS: Aspirin EC TAB* 81 MG TAB.EC PO SCH (08:17)
[2019-07-06] MEDS: oxyCODONE/Acetamin 5/325 MG* TAB PO SCH ×3 (08:17→21:21)
[2019-07-06] MEDS: Diltiazem CD CAP* 240 MG PO SCH (08:31)
[2019-07-06] MEDS: Mirabegron (NF) 50 MG TAB PO SCH (08:31)
[2019-07-06] MEDS: Azithromycin 500 mg/250 ml NS 500 MG/250 ML BAG IVPB SCH (13:46)
[2019-07-06] MEDS: cefTRIAXone(*) 1 GM in NS 0.9% 50 ML* 50 ML IVPB SCH (15:05)
--- NOTE | 2019-07-06 16:08 | PN ---
Subjective Date of Service: 07/06/19 Interval History: Patient felt much improved, she was able to walk to bathroom with baseline 3L O2. Still had cough with whitish phlegm but improved. However, patient stayed alone at home. She felt difficulty to take care of herself if getting discharged today. She would like another night to monitor symptoms and hopefully she can go home tomorrow. Objective Active Medications: Acetaminophen (Tylenol Tab*) 650 mg PO Q4H PRN PRN Reason: PAIN-MILD/TEMP >/= 100.4 Last Admin: 07/05/19 09:43 Dose: 650 mg Albuterol/Ipratropium (Duoneb (Albuterol 2.5 Mg/Ipratropium 0.5 Mg)) 1 neb INH Q4H PRN PRN Reason: SOB/WHEEZING Last Admin: 07/05/19 15:45 Dose: 1 neb Alprazolam (Xanax Tab*) 0.25 mg PO Q6H PRN PRN Reason: ANXIETY Last Admin: 07/06/19 00:25 Dose: 0.25 mg Aspirin (Aspirin Ec Tab*) 81 mg PO QAM [facility] Last Admin: 07/06/19 08:17 Dose: 81 mg Atorvastatin Calcium (Lipitor*) 40 mg PO BEDTIME [facility] Last Admin: 07/05/19 21:19 Dose: 40 mg Cyclobenzaprine HCl (Flexeril Tab*) 10 mg PO TID PRN PRN Reason: SPASMS Last Admin: 07/05/19 09:43 Dose: 10 mg Diltiazem HCl (Cardizem Cd Cap*) 240 mg PO QAM [facility] Last Admin: 07/06/19 08:31 Dose: 240 mg Azithromycin (Zithromax 500 Mg/250 Ml) 500 mg in 250 mls @ 250 mls/hr IVPB Q24H [facility] Last Admin: 07/06/19 13:46 Dose: 250 mls/hr Ceftriaxone Sodium 1 gm/ (Sodium Chloride) 50 mls @ 100 mls/hr IVPB Q24H [facility] Last Admin: 07/06/19 15:05 Dose: 100 mls/hr Levothyroxine Sodium (Synthroid Tab*) 75 mcg PO 0600 [facility] Last Admin: 07/06/19 05:25 Dose: 75 mcg Lisinopril (Prinivil Tab*) 10 mg PO DAILY [facility] Last Admin: 07/06/19 08:17 Dose: 10 mg Metoprolol Succinate (Toprol Xl Tab*) 25 mg PO QAM [facility] Last Admin: 07/06/19 08:17 Dose: 25 mg Mirabegron (Myrbetriq (Nf)) 50 mg PO QAM [facility] Last Admin: 07/06/19 08:31 Dose: Not Given Montelukast Sodium (Singulair Tab*) 10 mg PO QPM [facility] Last Admin: 07/05/19 16:59 Dose: 10 mg Ondansetron HCl (Zofran Inj*) 4 mg IV Q4H PRN PRN Reason: NAUSEA/VOMITING Oxycodone/Acetaminophen (Percocet 5/325 Tab*) 1 tab PO TID [facility] Last Admin: 07/06/19 13:46 Dose: 1 tab Prednisone (Deltasone Tab*) 40 mg PO DAILY [facility] Stop: 07/10/19 08:59 Last Admin: 07/06/19 08:16 Dose: 40 mg Pregabalin (Lyrica Cap(*)) 25 mg PO TID [facility] Last Admin: 07/06/19 13:46 Dose: 25 mg Sertraline HCl (Zoloft*) 200 mg PO QPM [facility] Last Admin: 07/05/19 16:59 Dose: 200 mg Warfarin Sodium (Coumadin Tab(*)) 5 mg PO 1700 [facility]; Protocol Last Admin: 07/05/19 16:59 Dose: 5 mg Vital Signs - 8 hr 07/06/19 07/06/19 07/06/19 08:14 08:17 08:25 Temperature Pulse Rate Respiratory 9 20 16 Rate Blood Pressure (mmHg) O2 Sat by Pulse Oximetry 07/06/19 07/06/19 07/06/19 08:30 08:31 10:14 Temperature Pulse Rate Respiratory 18 20 16 Rate Blood Pressure (mmHg) O2 Sat by Pulse Oximetry 07/06/19 07/06/19 07/06/19 10:17 12:00 13:46 Temperature 97.7 F Pulse Rate 72 Respiratory 16 18 20 Rate Blood Pressure 134/69 (mmHg) O2 Sat by Pulse 100 Oximetry Oxygen Devices in Use Now: Nasal Cannula Exam: General - NAD, sitting up in bed, well groomed and in nightgown Eyes - PERRLA, EOM intact HEENT- no abnormality Cardiovascular - RRR no m/r/g, no JVD, no carotid bruits Lungs - widespread wheezes especially on upper lobes anteriorly, clear posteriorly, left basal crackles heard. Skin - No rashes, skin warm and dry, no erythematous areas Abdomen - Normal bowel sounds, abdomen soft and nontender Extremities - No edema, cyanosis or clubbing Musculo Skeletal - 5/5 strength, normal range of motion, no swollen or erythematous joints. Neurological Alert and oriented x 3, CN 2-12 grossly intact. Psychiatry-mood stable Result Diagrams: 07/05/19 06:34 07/05/19 06:34 Microbiology and Other Data: Microbiology 07/04/19 11:22 Aerobic Blood Culture - Preliminary Blood Venous No Growth Day 1 Anaerobic Blood Culture - Preliminary No Growth Day 1 07/04/19 11:07 Aerobic Blood Culture - Preliminary Blood Venous No Growth Day 1 Anaerobic Blood Culture - Preliminary No Growth Day 1 07/04/19 20:09 Legionella Urinary Antigen - Final Urine Negative Legionella Antigen Streptococcus pneumoniae Ag Screen - Final Negative S. pneumo Antigen Assess/Plan/Problems-Billing Assessment: Mrs Jiménez is a 64yo F with PMH of COPD on home O2 (3 liters), CAD s/p stent to LAD in 2018, PVD s/p bilateral fem-pop bypass, SMA stent, chronic pain, diastolic CHF, moderate , HTN, hypothyroidism, depression, Afib, incarcerated abdominal hernia s/p ex lap with partial colon resection, who presented to ED with c/o dyspnea, found to have COPD exacerbation secondary to pneumonia. - Patient Problems (1) COPD exacerbation Current Visit: Yes Status: Acute Priority: High Code(s): J44.1 - CHRONIC OBSTRUCTIVE PULMONARY DISEASE W (ACUTE) EXACERBATION SNOMED Code(s): 776848186 Comment: - Secondary to pneumonia. - Continue bronchodilators, steroids, Ceftriaxone and Zithromax. - walking test done today, able to maintain saturation 91-92 with InO2 2L/min (2) PNA (pneumonia) Current Visit: Yes Status: Acute Priority: High Code(s): J18.9 - PNEUMONIA , UNSPECIFIED ORGANISM SNOMED Code(s): 242637771 Comment: - Continue Ceftriaxone and Zithromax. - Legionella and Pneumococcal Ag are negative. - Blood cultures show no growth so far. - a/w sputum culture. (3) A-fib Current Visit: Yes Status: Acute Code(s): I48.91 - UNSPECIFIED ATRIAL FIBRILLATION SNOMED Code(s): 45099384 Comment: - In NSR. - Continue Metoprolol, diltiazem, and Warfarin. (4) Anxiety Current Visit: Yes Status: Acute Code(s): F41.9 - ANXIETY DISORDER, UNSPECIFIED SNOMED Code(s): 08357570 Comment: - Continue alprazolam (5) CAD (coronary artery disease) Current Visit: Yes Status: Acute Code(s): I25.10 - ATHSCL HEART DISEASE OF [place] CORONARY ARTERY W/O ANG PCTRS SNOMED Code(s): 04203861 Comment: - Stable. - Continue Aspirin, atorvastatin, metoprolol. (6) Chronic respiratory failure with hypoxia Current Visit: Yes Status: Acute Comment: - Secondary to COPD, on home O2. (7) DVT prophylaxis Current Visit: Yes Status: Acute Priority: High Onset Date: 02/15/15 Code(s): UWZ1140 - SNOMED Code(s): 302400187 Comment: - Warfarin. (8) Depression Current Visit: Yes Status: Acute Priority: High Code(s): F32.9 - MAJOR DEPRESSIVE DISORDER, SINGLE EPISODE, UNSPECIFIED SNOMED Code(s): 64105533 Comment: - Continue Sertraline. (9) Diastolic congestive heart failure Current Visit: Yes Status: Acute Code(s): I50.30 - UNSPECIFIED DIASTOLIC ( CONGESTIVE) HEART FAILURE SNOMED Code(s): 326696256 Comment: - Stable. - Continue Metoprolol and Lisinopril. (10) Full code status Current Visit: Yes Status: Acute Priority: High Onset Date: 02/15/15 Code(s): Z78.9 - OTHER SPECIFIED HEALTH STATUS SNOMED Code(s): 285632537 (11) Hypothyroid Current Visit: Yes Status: Acute Code(s): E03.9 - HYPOTHYROIDISM, UNSPECIFIED SNOMED Code(s): 18622832 Comment: - Continue Levothyroxine. (12) Hypertension Current Visit: No Status: Acute Priority: High Code(s): I10 - ESSENTIAL ( PRIMARY) HYPERTENSION SNOMED Code(s): 79227808 Comment: - BP very high and symptomatic - Added norvasc today, increased lisinopril, tolerating - should ambulate on current regimen, assess for response Status and Disposition: Inpatient Medicine. Aim for discharge tomorrow Attestation Documenting Resident: Katty Espitia Supervising Physician: Viral Mcbride Attending/Supervising Physician Comment: Agree with plan as outlined in note by Dr. Espitia unless indicated here. Chronic respiratory failure on 3L home O2 now back to baseline SOB with ambulation but not desaturation Suspected underlying PNA contributing to COPD exacerbation on abx and steroids Attestation: This service has been performed in part by a resident under the direction of a teaching physician.I, Viral Mcbride, performed the service, or was physically present during the critical, or dominguez portions of the service, furnished by the resident. I participated in the management of the patient.
[2019-07-06] MEDS: Warfarin TAB(*) 5 MG PO SCH (16:43)
[2019-07-06] MEDS: Sertraline* 100 MG TAB PO SCH (16:43)
[2019-07-06] MEDS: Montelukast Sodium TAB* 10 MG PO SCH (16:43)
[2019-07-06] MEDS: Albuterol/Ipratropium NEB.SOL* Albuterol 2.5 MG/Ipratropium 0.5 MG 3 ML INH PRN (19:38)
[2019-07-06] MEDS: Atorvastatin* 40 MG TAB PO SCH (21:20)
[2019-07-07] MEDS: Levothyroxine TAB* 75 MCG TAB PO SCH (06:22)
--- NOTE | 2019-07-07 07:15 | PN ---
Subjective Date of Service: 07/07/19 Interval History: HD 4 on 07/07/19 64 F with PMH of COPD on home O2 (3 liters), CAD s/p stent to LAD in 2018, PVD s /p bilateral fem-pop bypass, SMA stent, chronic pain, HFpEF, moderate , HTN, hypothyroidism, depression, Afib, incarcerated abdominal hernia s/p ex lap with partial colon resection, who presented COPD exacerbation secondary to pneumonia Overnight no acute events, VSS Labs: Not done since 07/05 This morning feeling much better, eating breakfast feels back to baseline, pleasant and in NAD. Still with some slight productive cough but no darcy SOB, no CP, no GI or MSK complaints. Family History: Unchanged from Admission Social History: Unchanged from Admission Past Medical History: Unchanged from Admission Objective Active Medications: Acetaminophen (Tylenol Tab*) 650 mg PO Q4H PRN PRN Reason: PAIN-MILD/TEMP >/= 100.4 Last Admin: 07/05/19 09:43 Dose: 650 mg Albuterol/Ipratropium (Duoneb (Albuterol 2.5 Mg/Ipratropium 0.5 Mg)) 1 neb INH Q4H PRN PRN Reason: SOB/WHEEZING Last Admin: 07/06/19 19:38 Dose: 1 neb Alprazolam (Xanax Tab*) 0.25 mg PO Q6H PRN PRN Reason: ANXIETY Last Admin: 07/06/19 00:25 Dose: 0.25 mg Aspirin (Aspirin Ec Tab*) 81 mg PO QAM [facility] Last Admin: 07/06/19 08:17 Dose: 81 mg Atorvastatin Calcium (Lipitor*) 40 mg PO BEDTIME [facility] Last Admin: 07/06/19 21:20 Dose: 40 mg Cyclobenzaprine HCl (Flexeril Tab*) 10 mg PO TID PRN PRN Reason: SPASMS Last Admin: 07/05/19 09:43 Dose: 10 mg Diltiazem HCl (Cardizem Cd Cap*) 240 mg PO QAM [facility] Last Admin: 07/06/19 08:31 Dose: 240 mg Azithromycin (Zithromax 500 Mg/250 Ml) 500 mg in 250 mls @ 250 mls/hr IVPB Q24H [facility] Last Admin: 07/06/19 13:46 Dose: 250 mls/hr Ceftriaxone Sodium 1 gm/ (Sodium Chloride) 50 mls @ 100 mls/hr IVPB Q24H [facility] Last Admin: 07/06/19 15:05 Dose: 100 mls/hr Levothyroxine Sodium (Synthroid Tab*) 75 mcg PO 0600 [facility] Last Admin: 07/07/19 06:22 Dose: 75 mcg Lisinopril (Prinivil Tab*) 10 mg PO DAILY [facility] Last Admin: 07/06/19 08:17 Dose: 10 mg Metoprolol Succinate (Toprol Xl Tab*) 25 mg PO QAM [facility] Last Admin: 07/06/19 08:17 Dose: 25 mg Mirabegron (Myrbetriq (Nf)) 50 mg PO QAM [facility] Last Admin: 07/06/19 08:31 Dose: Not Given Montelukast Sodium (Singulair Tab*) 10 mg PO QPM [facility] Last Admin: 07/06/19 16:43 Dose: 10 mg Ondansetron HCl (Zofran Inj*) 4 mg IV Q4H PRN PRN Reason: NAUSEA/VOMITING Oxycodone/Acetaminophen (Percocet 5/325 Tab*) 1 tab PO TID [facility] Last Admin: 07/06/19 21:21 Dose: 1 tab Prednisone (Deltasone Tab*) 40 mg PO DAILY [facility] Stop: 07/10/19 08:59 Last Admin: 07/06/19 08:16 Dose: 40 mg Pregabalin (Lyrica Cap(*)) 25 mg PO TID [facility] Last Admin: 07/06/19 21:21 Dose: 25 mg Sertraline HCl (Zoloft*) 200 mg PO QPM [facility] Last Admin: 07/06/19 16:43 Dose: 200 mg Warfarin Sodium (Coumadin Tab(*)) 5 mg PO 1700 [facility]; Protocol Last Admin: 07/06/19 16:43 Dose: 5 mg Vital Signs - 8 hr 07/06/19 07/07/19 07/07/19 23:30 00:33 02:28 Temperature 98.0 F 97.6 F Pulse Rate 64 60 Respiratory 18 20 20 Rate Blood Pressure 137/73 158/74 (mmHg) O2 Sat by Pulse 100 100 Oximetry Oxygen Devices in Use Now: Nasal Cannula Appearance: Pleasant woman in NAD Eyes: No Scleral Icterus, PERRLA Ears/Nose/Mouth/Throat: NL Teeth, Lips, Gums Neck: NL Appearance and Movements; NL JVP, Trachea Midline Respiratory: - - Dimished to RLL and rhonchi in LLL, no wheeze otherwise distant sounds Cardiovascular: NL Sounds; No Murmurs; No JVD, RRR Abdominal: NL Sounds; No Tenderness; No Distention, No Hepatosplenomegaly Lymphatic: No Cervical Adenopathy Extremities: No Edema Skin: No Rash or Ulcers Neurological: Alert and Oriented x 3 Result Diagrams: 07/05/19 06:34 07/05/19 06:34 Microbiology and Other Data: Microbiology 07/04/19 11:22 Aerobic Blood Culture - Preliminary Blood Venous No Growth Day 1 Anaerobic Blood Culture - Preliminary No Growth Day 1 07/04/19 11:07 Aerobic Blood Culture - Preliminary Blood Venous No Growth Day 1 Anaerobic Blood Culture - Preliminary No Growth Day 1 07/04/19 20:09 Legionella Urinary Antigen - Final Urine Negative Legionella Antigen Streptococcus pneumoniae Ag Screen - Final Negative S. pneumo Antigen Assess/Plan/Problems-Billing Assessment: 64 F with PMH of COPD on home O2 (3 liters), CAD s/p stent to LAD in 2018, PVD s /p bilateral fem-pop bypass, SMA stent, chronic pain, HFpEF, moderate , HTN, hypothyroidism, depression, Afib, incarcerated abdominal hernia s/p ex lap with partial colon resection, who presented COPD exacerbation secondary to pneumonia - Patient Problems (1) COPD exacerbation Current Visit: Yes Status: Acute Priority: High Code(s): J44.1 - CHRONIC OBSTRUCTIVE PULMONARY DISEASE W (ACUTE) EXACERBATION SNOMED Code(s): 230006997 Comment: - Secondary to pneumonia - Continue bronchodilators, steroids, Ceftriaxone and Zithromax, Day 4/7 on 07/07 , d/c on Doxy for dual coverage for additional 3 days (2) A-fib Current Visit: Yes Status: Acute Code(s): I48.91 - UNSPECIFIED ATRIAL FIBRILLATION SNOMED Code(s): 91518246 Comment: - In NSR. - Continue Metoprolol, diltiazem, and Warfarin. (3) CAD (coronary artery disease) Current Visit: Yes Status: Acute Code(s): I25.10 - ATHSCL HEART DISEASE OF [place] CORONARY ARTERY W/O ANG PCTRS SNOMED Code(s): 51753235 Comment: - Stable. - Continue Aspirin, atorvastatin, metoprolol. (4) Diastolic congestive heart failure Current Visit: Yes Status: Acute Code(s): I50.30 - UNSPECIFIED DIASTOLIC ( CONGESTIVE) HEART FAILURE SNOMED Code(s): 464645230 Comment: - Stable. No signs of volume overload - Continue Metoprolol and Lisinopril. (5) Hypertension Current Visit: Yes Status: Acute Code(s): I10 - ESSENTIAL (PRIMARY) HYPERTENSION SNOMED Code(s): 38076687 Comment: - Controlled - continue metoprolol, diltiazem, lisinopril. (6) Hypothyroid Current Visit: Yes Status: Acute Code(s): E03.9 - HYPOTHYROIDISM, UNSPECIFIED SNOMED Code(s): 80154905 Comment: - Continue Levothyroxine. (7) Anxiety Current Visit: Yes Status: Acute Code(s): F41.9 - ANXIETY DISORDER, UNSPECIFIED SNOMED Code(s): 93039952 Comment: - Continue alprazolam, sertraline (8) Chronic pain Current Visit: No Status: Acute Priority: High Code(s): G89.29 - OTHER CHRONIC PAIN SNOMED Code(s): 61417886 Comment: restart home meds as able to take po: lyrica 50 TID, flexeril 10 TID , oxy managed at pain clinic (9) DVT prophylaxis Current Visit: Yes Status: Acute Priority: High Onset Date: 02/15/15 Code(s): NTG0868 - SNOMED Code(s): 029142982 Comment: - Warfarin. (10) Full code status Current Visit: Yes Status: Acute Priority: High Onset Date: 02/15/15 Code(s): Z78.9 - OTHER SPECIFIED HEALTH STATUS SNOMED Code(s): 079991134 Status and Disposition: Stable for d/c to home on oral meds, aim for d/c after abx
[2019-07-07] MEDS: Diltiazem CD CAP* 240 MG PO SCH (08:06)
[2019-07-07] MEDS: predniSONE TAB* 20 MG PO SCH (08:06)
[2019-07-07] MEDS: Pregabalin CAP(*) 25 MG PO SCH ×2 (08:06→13:16)
[2019-07-07] MEDS: oxyCODONE/Acetamin 5/325 MG* TAB PO SCH ×2 (08:06→13:16)
[2019-07-07] MEDS: Metoprolol Succinate XL TAB* 25 MG PO SCH (08:08)
[2019-07-07] MEDS: Lisinopril TAB* 10 MG PO SCH (08:08)
[2019-07-07] MEDS: Mirabegron (NF) 50 MG TAB PO SCH (08:08)
[2019-07-07] MEDS: Aspirin EC TAB* 81 MG TAB.EC PO SCH (08:08)
[2019-07-07] MEDS ORDERED: Benzonatate CAP* 100 MG PO PRN (09:33)
[2019-07-07] MEDS ORDERED: guaiFENesin LIQ* 100 MG/5 ML UDC PO PRN (09:34)
[2019-07-07 12:03] VITALS: BP 139/72
[2019-07-07] MEDS: Azithromycin 500 mg/250 ml NS 500 MG/250 ML BAG IVPB SCH (13:04)
[2019-07-07] MEDS: Cyclobenzaprine TAB* 10 MG PO PRN (13:16)
--- NOTE | 2019-07-07 14:01 | DS ---
DISCHARGE SUMMARY: DATE OF ADMISSION: 07/04/19 DATE OF DISCHARGE: 07/07/19 PRIMARY CARE PROVIDER: Miguel Parmar MD DISPOSITION AT THE TIME OF DISCHARGE: Stable to be discharged to home. PRIMARY DIAGNOSES: 1. Chronic obstructive pulmonary disease exacerbation. 2. Community acquired pneumonia. 3. Sepsis, now resolved during hospitalization. SECONDARY DIAGNOSES: 1. Chronic obstructive pulmonary disease, on home oxygen 3 L. 2. Coronary artery disease, status post stent to left anterior descending in 2018. 3. Peripheral vascular disease, status post bilateral femoropopliteal bypass and superior mesenteric artery stent. 4. Chronic pain, currently managed in Pain Clinic on long-standing opiate therapy. 5. Heart failure with preserved ejection fraction. 6. Moderate aortic stenosis. 7. Hypertension. 8. Hypothyroidism. 9. Depression and anxiety, on chronic benzodiazepines. 10. Atrial fibrillation, on anticoagulation. 11. History of incarcerated abdominal hernia, status post ex-lap with partial colon resection. MEDICATIONS AT TIME OF DISCHARGE: 1. Prednisone 40 mg p.o. q.a.m. for an additional 3 days status post discharge. 2. Amoxiclav 875 mg p.o. b.i.d. 6 tabs for 3 days status post discharge. 3. Azithromycin 250 mg p.o. daily 3 days status post discharge. 4. Albuterol 1 puff inhaled q.4 hours p.r.n. for wheezing. 5. Fluticasone/salmeterol 1 puff inhaled b.i.d. 6. Nitroglycerin 0.4 mg sublingual q.5 minutes p.r.n. for angina. 7. Warfarin 5 mg p.o. q.h.s. 6. Sertraline 200 mg p.o. q.p.m. 7. Pregabalin 25 mg p.o. t.i.d. 8. Oxycodone 5/325 one tab p.o. t.i.d. p.r.n. for pain as per Pain Clinic. 9. Montelukast 10 mg p.o. q.p.m. 10. Myrbetriq 50 mg p.o. q.a.m. 11. Metoprolol succinate 25 mg p.o. q.a.m. 12. Lisinopril 10 mg p.o. daily. 13. Levothyroxine 75 mcg p.o. q.a.m. at 6 a.m. 14. Diltiazem CD capsule 240 mg p.o. q.a.m. 15. Cyclobenzaprine 10 mg p.o. t.i.d. p.r.n. for muscle spasms. 17. Atorvastatin 40 mg p.o. q.h.s. 18. Aspirin 81 mg p.o. q.a.m. 19. Alprazolam 0.25 mg p.o. q.6 hours p.r.n. for severe anxiety as prescribed by primary care. Medication changes on this hospitalization include the addition of prednisone, Augmentin, and azithromycin for 3 days post discharge. HISTORY OF PRESENT ILLNESS AND HOSPITAL COURSE: This is a 64-year-old female with above past medical history who presented to the emergency room on 07/04/19 evening with complaint of shortness of breath. The patient states that she had one day of shortness of breath and tightness with cough productive of a yellow thick mucus. She also reports feeling foggy and unclear with her thinking, also endorses 1 week of subacute fatigue and the need for using 3 to 4 L of her home oxygen usually on 2 to 3 L. In the emergency room, the patient had chest x-ray that showed patchy bibasilar atelectasis and consolidation. EKG was normal sinus rhythm. Labs showed leukocytosis of 13 with left shift and a mild BOBBY with creatinine at 1.08. The patient also in the emergency room was tachycardic, febrile, and leukocytosis meeting 3/4 SIRS criteria with likely source pneumonia and was admitted with sepsis mild and pneumonia on hospital course by problem list as follows. 1. Sepsis. Again, the patient met sepsis criteria on admission with tachycardia greater than 90, febrile to 101.3, and leukocytosis to 19 with source of fever. The patient received fluid bolus and antibiotics, and SIRS criteria and sepsis resolved within 24 hours. There was no evidence of end- organ damage and had no evidence of shock. 2. Pneumonia. Presumed community-acquired. Legionella and pneumococcal antigens were negative. The patient was managed on ceftriaxone, azithromycin for a total of 4 days during hospitalization and will be discharged on 3 additional days of antibiotics for a total of 7 days. Her symptoms improved greatly. She resumed her home oxygen needs of 3 L on ambulation, was able to maintain an oxygen reading of 90% to 93% while ambulating on 3 L. Blood cultures showed no growth. Sputum culture was without significant growth. 3. COPD exacerbation, this is secondary to pneumonia. She was on bronchodilators, was put on prednisone burst for a total of 7 days, and treated her pneumonia with ceftriaxone and azithromycin to be changed to amoxicillin/ clavulanate and azithromycin on discharge. 4. CAD. The patient is optimized on aspirin, atorvastatin, and metoprolol and continue her home medications. 5. Hypertension. The patient was well controlled during the hospital on her home medications, metoprolol, diltiazem, and lisinopril. 6. Anxiety. She is on standing sertraline and benzodiazepine, is managed by her primary care provider, those were continued. 7. Heart failure with preserved ejection fraction. There was no signs of fluid overload. She is on home medications of metoprolol, lisinopril, and is not on a diuretic medication and was not managed on one here and has done well with treatment of infection and COPD exacerbation alone. Continue close followup with primary care provider. 8. History of AFib. She remained in normal sinus rhythm and continued on her metoprolol, diltiazem, and warfarin. INR is therapeutic during this hospitalization with INR on 07/04/19 of 2.17. 9. Hypothyroidism. Home levothyroxine was continued. 10. DVT prophylaxis. The patient was remained on therapeutic warfarin during this hospitalization. 11. Code status. The patient was full. On day of discharge, the patient is voiding freely, tolerating diet, and ambulating with her home oxygen requirements and seems returned to baseline. She will be discharged on 3 days of antibiotics and steroids to have close followup with her primary care provider, which is she reports she can arrange. LABS AND STUDIES DONE DURING THIS HOSPITALIZATION: Chest x-ray done on shows patchy bibasilar atelectasis and early consolidation. EKG on 07/04/19 shows normal sinus rhythm with no acute signs of ischemia with 1 PVC. Labs on 07/05/19 show white blood cell count of 11.6, hemoglobin 11.5, hematocrit 35, platelets 209. BMP with sodium 140, potassium 3.8, chloride 104 , carbon dioxide 30, creatinine 0.69, glucose 132. Lactic acid on 07/04/19 was 1.2. LFTs were normal on 07/04/19. UA was normal. Microbiology shows negative Legionella and Strep pneumo antigen in urine on 07/04/19 and sputum with a negative Gram stain on 07/05/19. Blood cultures from 07/04/19 remain negative. ITEMS TO FOLLOW UP ON STATUS POST DISCHARGE: Pneumonia and COPD exacerbation, the patient should have completed 7 days of treatment with antibiotics and steroids and had significant improvement while here in the hospital. Ensure completed treatment and continued clinical improvement. Otherwise, the patient's home medications were continued. She will need continued followup with INR as per her primary care provider's office already offering. DISPOSITION AT TIME OF DISCHARGE: The patient is stable for return to home. TIME SPENT: Forty minutes was spent on planning of this discharge, with over half of that spent directly at the bedside providing direct patient care. Plan of care was discussed with the patient who agrees with discharge to home and has no disagreements. If there are any questions about the care provided during this hospitalization to this patient, please do not hesitate to reach out to the hospitalist team at [facility]. [id number]/[facility] #: [id number] FERMÍN
[2019-07-07] MEDS: cefTRIAXone(*) 1 GM in NS 0.9% 50 ML* 50 ML IVPB SCH (15:21)
== END 2019-07-07 17:10 | disposition home or self-care (01) | DRG 871 ==
LOC: ED 10:22 → MED 12:37 → OBSVTOIN 07-05 16:56
PROVIDERS: ADMIT Internal Medicine; ATTEND Internal Medicine
DX: A41.9 Sepsis, unspecified organism (principal); J18.9 Pneumonia, unspecified organism; J44.0 Chronic obstructive pulmonary disease with (acute) lower respiratory infection; J44.1 Chronic obstructive pulmonary disease with (acute) exacerbation; J96.11 Chronic respiratory failure with hypoxia; I50.32 Chronic diastolic (congestive) heart failure; N17.9 Acute kidney failure, unspecified; E03.9 Hypothyroidism, unspecified; I25.10 Atherosclerotic heart disease of native coronary artery without angina pectoris; E78.00 Pure hypercholesterolemia, unspecified; I73.9 Peripheral vascular disease, unspecified; J30.2 Other seasonal allergic rhinitis; K21.9 Gastro-esophageal reflux disease without esophagitis; K57.90 Diverticulosis of intestine, part unspecified, without perforation or abscess without bleeding; M19.90 Unspecified osteoarthritis, unspecified site; G89.29 Other chronic pain; I11.0 Hypertensive heart disease with heart failure; I48.91 Unspecified atrial fibrillation; M47.812 Spondylosis without myelopathy or radiculopathy, cervical region; H91.90 Unspecified hearing loss, unspecified ear; H26.9 Unspecified cataract; I35.0 Nonrheumatic aortic (valve) stenosis; F41.0 Panic disorder [episodic paroxysmal anxiety]; F32.9 Major depressive disorder, single episode, unspecified; Z87.440 Personal history of urinary (tract) infections; Z88.6 Allergy status to analgesic agent; Z86.718 Personal history of other venous thrombosis and embolism; Z99.81 Dependence on supplemental oxygen; Z87.442 Personal history of urinary calculi; Z86.11 Personal history of tuberculosis; Z87.891 Personal history of nicotine dependence; Z95.5 Presence of coronary angioplasty implant and graft; Z90.49 Acquired absence of other specified parts of digestive tract; Z95.820 Peripheral vascular angioplasty status with implants and grafts; Z79.01 Long term (current) use of anticoagulants; Z79.82 Long term (current) use of aspirin
CPT/HCPCS: 36415; 71046; 80048; 80053; 81003; 82803; 83605; 83880; 84484; 85025; 85610; 87040; 87070; 87077; 87186; 87205; 87899; 93005; 94640; 99284; A9270-GY; G0378; J0456; J0696; J1650; J2930; J7512

== ENCOUNTER → 2019-10-01 09:12 | Day surgery (SDC) | payer MEDICARE ==
[~2019-10-01 09:12] MED LIST: Acetaminophen TAB* 325 MG PO PRN; BSS OPTH.SOL* BTL ONE; Buffered Lidocaine 1% SYRIN* 1 ML/SYRINGE INTRADERM ONE; Cyclopentolate 1% OPTH.SOL* 2 ML BTL ONE; Ketorolac 0.5% OPHTH (NF) 0.5 % 5 ML BTL ONE; Lidocaine 1% MPF ** 5 ML VIAL ONE; Lidocaine 2% w/ EPI 1:200,000* 20 ML SDV VIAL ONE; Midazolam* 1 MG/ML 2 ML VIAL (2 MG) ONE; Neomycin/Polymy/Dex OPTH.SUSP* MAXITROL 0.1% 5 ML ONE; Phenylephrine OPHTH SOL 2.5%* 2 ML ONE; Povidone Iodine 5% OPTH* 30 ML BTL ONE; Proparacaine 0.5% OPHTH.SOL* 15 ML BTL ONE; Trypan Blue 0.06% SOL* 0.5 ML BTL ONE; acetaZOLAMIDE TAB* 250 MG ONE; fentaNYL* 50 MCG/ML 2 ML VIAL (100 MCG VIAL) ONE
[2019-10-01 11:47] VITALS: BP 115/64
--- NOTE | 2019-10-01 14:37 | OP ---
OPERATIVE NOTE: DATE OF OPERATION: 10/01/19 DATE OF : 51 SURGEON: Zachariah Heller MD PREOPERATIVE DIAGNOSIS: Cataract, right eye. POSTOPERATIVE DIAGNOSIS: Cataract, right eye. OPERATIVE PROCEDURE: Extracapsular cataract extraction with intraocular lens implant and capsular te nsion ring, right eye. PROCEDURE: The patient was brought to the operating room after being given 1/2% Alcaine with epineph rine drops in the preoperative area. The eye was prepped and draped in the usual sterile fashion. S terile drape and eyelid speculum were placed. Again, topical 1/2% Alcaine with epinephrine was given . A paracentesis incision was made at the 9 o'clock position with the No.75 blade. Clear cornea inc ision 2.2 x 2.2-mm was created at the 12 o'clock position starting at the anterior limbus using the 2 .2-mm keratome. The anterior chamber was irrigated with 0.4 mL of 1% non-preservative intracameral l idocaine and filled with DisCoVisc. A capsulorrhexis was completed using the cystotome and the Utrat a forceps. Hydrodissection was performed with balanced salt solution. The lens nucleus was removed w ith the Phacoemulsification handpiece without incident. Cortex was removed with the irrigation-aspir ation handpiece. The capsular bag was re-inflated using DisCoVisc and an [id number] 16 implant was inser jorge luis with the shooter followed by a capsular tension ring, a CTR 12 inserted with the shooter. There was a white cataract, so VisionBlue was used to stain the anterior capsule prior to insertion of the Malyugin ring. Also, the pupil was only 3 mm, so a Malyugin ring was used to dilate the pupil prior to capsulorrhexis. This was removed after insertion of the capsular tension ring. The irrigation-as piration handpiece was used to remove all residual DisCoVisc. The eye was refilled with balanced vanna t solution and the wound checked and found to be watertight. Topical Maxitrol drops were given. [id number]/[facility] #: [id number]
== END | disposition home or self-care (01) ==
LOC: OREAST 09:12
PROVIDERS: ATTEND Specialist
DX: H25.811 Combined forms of age-related cataract, right eye (principal); H40.1434 Capsular glaucoma with pseudoexfoliation of lens, bilateral, indeterminate stage; Z87.891 Personal history of nicotine dependence; Z79.01 Long term (current) use of anticoagulants; J44.9 Chronic obstructive pulmonary disease, unspecified; I48.91 Unspecified atrial fibrillation; I25.10 Atherosclerotic heart disease of native coronary artery without angina pectoris; E03.9 Hypothyroidism, unspecified; E78.5 Hyperlipidemia, unspecified; R01.1 Cardiac murmur, unspecified
CPT/HCPCS: A9270-GY; J2250; J3010; V2632

== ENCOUNTER 2019-10-08 11:00 | Day surgery (SDC) | payer MEDICARE ==
[~2019-10-08 11:00] MED LIST changes: -Acetaminophen TAB* 325 MG PO PRN; -BSS OPTH.SOL* BTL ONE; -Midazolam* 1 MG/ML 2 ML VIAL (2 MG) ONE; -Trypan Blue 0.06% SOL* 0.5 ML BTL ONE; -fentaNYL* 50 MCG/ML 2 ML VIAL (100 MCG VIAL) ONE
[2019-10-08] MEDS ORDERED: Midazolam* 1 MG/ML 2 ML VIAL (2 MG) ONE ×2 (13:40→14:33)
[2019-10-08 15:10] VITALS: BP 137/60
--- NOTE | 2019-10-08 15:25 | OP ---
DATE OF OPERATION: 10/08/2019. DATE OF : 1955. SURGEON: Zachariah Heller M.D. PREOPERATIVE DIAGNOSIS: Cataract left eye. POSTOPERATIVE DIAGNOSIS: Cataract left eye. OPERATIVE PROCEDURE: Extracapsular cataract extraction with intraocular lens implant left eye and CT R. PROCEDURE: The patient was brought to the operating room after being given 1/2% Alcaine with epineph rine drops in the preoperative area. The eye was prepped and draped in the usual sterile fashion. S terile drape and eyelid speculum were placed. Again, topical 1/2% Alcaine with epinephrine was given . A paracentesis incision was made at the 3 o'clock position with the No.75 blade. Clear cornea inc ision 2.2 x 2.2-mm was created at the 6 o'clock position starting at the anterior limbus using the 2. 2-mm keratome. The anterior chamber was irrigated with 0.4 mL of 1% non-preservative intracameral li docaine and filled with DisCoVisc. A capsulorrhexis was completed using the cystotome and the Utrata forceps. Hydrodissection was performed with balanced salt solution. The lens nucleus was removed wi th the Phacoemulsification handpiece without incident. Cortex was removed with the irrigation-aspira tion handpiece. The capsular bag was re-inflated using DisCoVisc and an [id number] 14 implant was insert ed with the shooter. The irrigation-aspiration handpiece was used to remove all residual DisCoVisc. The eye was refilled with balanced salt solution and the wound checked and found to be watertight. Topical Maxitrol drops were given. [id number]/[facility] #: [id number]
== END 2019-10-08 15:05 | disposition home or self-care (01) ==
LOC: OREAST 11:00
PROVIDERS: ATTEND Specialist
DX: H25.812 Combined forms of age-related cataract, left eye (principal); H40.1424 Capsular glaucoma with pseudoexfoliation of lens, left eye, indeterminate stage; J44.9 Chronic obstructive pulmonary disease, unspecified; I10 Essential (primary) hypertension; E78.5 Hyperlipidemia, unspecified; E03.9 Hypothyroidism, unspecified; I25.10 Atherosclerotic heart disease of native coronary artery without angina pectoris; Z95.5 Presence of coronary angioplasty implant and graft; I48.91 Unspecified atrial fibrillation; M19.90 Unspecified osteoarthritis, unspecified site; Z79.01 Long term (current) use of anticoagulants; Z87.891 Personal history of nicotine dependence
CPT/HCPCS: A9270-GY; J2250; V2632

== ENCOUNTER 2019-11-03 18:42 | Emergency (ER) | payer MEDICARE ==
--- OUTSIDE RECORDS SUMMARY | 2019-11-03 19:15 | XMS REPORT ---
:1955 Author Organization [facility] Care Team Providers Name Role Phone Unavailable Unavailable Unavailable Problems This patient has no known problems. Allergies, Adverse Reactions, Alerts Allergy Name Allergy Status Severity Reaction(s) Onset Inactive Treating Comments Type Date Date Clinician gabapentin Base Active Unknown Reaction 2017-10 [place] Ingredient Unknown 2-24 Anatoliy Medications Ordered Filled Start Stop Current Ordering Indication Dosage Frequency Signature Comments Components Medication Medication Date Date Medication? Clinician (SIG) Name Name No Known No Known No None None None Medications Medications For This For This Patient Patient Procedures This patient has no known procedures. Results This patient has no known results.
--- OUTSIDE RECORDS SUMMARY | 2019-11-03 19:15 | XMS REPORT | Continuity of Care Document ---
:1955 External Reference #:[id number] Author Name Zachariah Heller M.D. Address [address] [place] [address] Care Team Providers Name Role Phone Miguel Parmar M.D. - Family Medicine Care Team Information Oil Distributor Donald Estrada O.D. - Restaurant Shift Supervisor Care Team Information Oil Distributor [phone] Problems Active Problems Provider Date Asthma Onset: Chronic obstructive lung disease Onset: Arthritis Onset: Atrial fibrillation and flutter Onset: Hypertensive disorder Onset: Cholesteatoma Onset: Combined form of senile cataract Zachariah Heller M.D. Onset: 08/12/2019 Pseudoexfoliation glaucoma Zachariah Heller M.D. Onset: 08/12/2019 Presence of intraocular lens Zachariah Heller M.D. Onset: 10/02/2019 Social History Type Date Description Comments Sex Unknown ETOH Use Denies alcohol use Tobacco Use Start: Unknown End: Patient is a former smoker Recreational Drug Use Denies Drug Use Smoking Status Reviewed: 10/09/19 Patient is a former smoker Allergies, Adverse Reactions, Alerts Active Allergies Reaction Severity Comments Date NKDA 09/15/2019 Seasonal Moderate 08/12/2019 Medications Active Medications SIG Qnty Indications Ordering Date Provider Artificial Tears Zachariah Heller, 10/01/2019 1-0.3% M.D. Solution Ciprofloxacin HCL instill one drop 5ml Zachariah Heller, 09/15/2019 0.3% in the right eye M.D. Solution three times a day, start the day before surgery Ketorolac Tromethamine use one drop in 10ml Zachariah Dacostamahad, 09/15/2019 0.5% the right eye M.D. Solution three times a day, start the day before surgery Prednisolone Acetate 1 drops right eye 5ml Zachariah Barfieldkaylie, 09/15/2019 1% three times a M.D. Suspension day. taper as directed Simbrinza 1 drop right eye 24ml Zachariah Dacostamahad, 09/15/2019 1-0.2% Suspension twice a day M.D. starting when you get home from surgery Albuterol Sulfate Unknown (2.5mg/3ML) 0.083% Nebulizer Nitrostat Unknown 0.4mg Tablets Sub Percocet Unknown 5-325mg Tablets Atorvastatin Calcium Unknown 40mg Tablets Aspir-Low Unknown 81mg Tablets DR Levofloxacin Unknown 500mg Tablets Metoprolol Succinate ER Morrison, Jasper 25mg D.O. Tablets ER 24HR Lyrica Unknown 50mg Capsules Diltiazem HCL ER Coated Midura, Miguel Beads M.D. 240mg Caps ER 24HR Alprazolam Unknown 0.25mg Tablets Combivent Respimat Unknown 20-100mcg/Act Aerosol Montelukast Sodium Unknown 10mg Tablets Myrbetriq Hussieni, Kee 50mg Tablets ER M.D. 24HR Cyclobenzaprine HCL Unknown 10mg Tablets Sertraline HCL 200 MG Day Unknown 100mg Tablets Symbicort Unknown 160-4.5mcg/Act Aerosol Warfarin Sodium Midura, Miguel 5mg Tablets M.D. Spironolactone/Hydrochlo Midura, Miguel rothiazide M.D. 25-25mg Tablets Levothyroxine Sodium Midura, Miguel 75mcg M.D. Tablets Immunizations Description No Information Available Vital Signs Description No Information Available Results Description No Information Available Procedures Date Code Description Status 10/08/2019 63302 Cataract Surgery Complex Completed 10/01/2019 61509 Cataract Surgery Complex Completed 09/15/2019 69220 Ophthalmic Biometry Completed 09/15/2019 52664 Ophthalmic Biometry Completed 09/15/2019 11682 Est Patient Intermediate Exam Completed 08/12/2019 73774 New Patient Comprehensive Exam Completed Medical Devices Description No Information Available Encounters Description No Information Available Assessments Date Code Description Provider 10/09/2019 Z96.1 Presence of intraocular lens Zachariah Heller M.D. 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 left eye 10/08/2019 H40.1421 Capsular glaucoma with pseudoexfoliation of Zachariah Heller M.D. lens, left eye, mild stage 10/02/2019 H25.812 Combined forms of age-related cataract, Zachariah Heller M.D. 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 10/01/2019 H25.811 Combined forms of age-related eliel, Zachariah Heller M.D. right eye 10/01/2019 H40.1411 Capsular glaucoma with pseudoexfoliation of Zachariah Heller M.D. lens, right eye, mild stage 10/01/2019 H25.89 Other age-related cataract Zachariah Heller M.D. 09/15/2019 H25.811 Combined forms of age-related cataract, Zachariah Heller M.D. 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 left eye 08/12/2019 H25.813 Combined forms of age-related cataract, Zachariah Heller M.D. 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 at Zachariah Heller MD, 10/09/2019 - Zachariah Heller M.D.Z96.1 Presence of intraocular lensComments:Smoking can increase the risk of developing or worsening any eye related disease, as well as affect your overall health. If you are a smoker, we strongly recommend that you quit.If you are not a smoker, we strongly recommend that you do not start. The artifical lens implant in your left eye appears to be stable. Since this is the first day after surgery, your left eye is still dilated and the vision will still be slightly blurry. The dilation will go down over the next day or two. Continue taking your eye drops as directed on the surgical calendar. If you have any questions, please call our office. USE OVER THE COUNTER READING GLASSES +2.25 OR +2.50H40.1431 Capsular glaucoma with pseudoexfoliation of lens, bilateral, mild stage Functional Status Description No Information Available Mental Status Description No Information Available Referrals Description No Information Available
--- OUTSIDE RECORDS SUMMARY | 2019-11-03 19:15 | XMS REPORT | Continuity of Care Document ---
:1955 External Reference #:[id number] Author Name Jasper Morrison DO FACC (transmitted by agent of provider Homa Luis) Address [address] [facility] [place] [address] Care Team Providers Name Role Phone Miguel Parmar MD - Family Medicine Care Team Information Cytogenetic Technician [phone] Kathleen Henson M.D. - Physician Care Team Information Cytogenetic Technician [phone] Medical Lab Specialist Problems Active Problems Provider Date Cervical spondylosis without myelopathy Abdias Brannon M.D. Onset: 10/28/2013 Localized, primary osteoarthritis Vi Allen M.D. Onset: 10/30/2018 Localized, primary osteoarthritis of the pelvic Vi Allen M.D. Onset: 11/2018 region and thigh Trochanteric bursitis Vi Allen M.D. Onset: 10/30/2018 Social History Type Date Description Comments Sex Unknown Tobacco Use Start: Unknown End: Former Cigarette 2-3 PPD. 45 years Smoker 2 Packs Daily Tobacco Use Start: Unknown Secondhand smoke As a child and as an adult Smoking Status Reviewed: 10/15/19 Secondhand smoke As a child and as an adult ETOH Use Denies alcohol use ETOH Use Has consumed alcohol History of alcohol in the past abuse Tobacco Use Start: Unknown End: Patient is a former quit in April 2014, Unknown smoker smoked for 46 years 1 ppd Recreational Drug Use Former Drug User History of marijuana use Recreational Drug Use Denies Drug Use Exercise Type/Frequency Exercises regularly Exercise room at residence. 4-5x per week Allergies, Adverse Reactions, Alerts Active Allergies Reaction Severity Comments Date Gabapentin 10/10/2018 Inactive Allergies NKDA 07/31/2013 Medications Active Medications SIG Qnty Indications Ordering Date Provider Prednisolone Acetate Unknown 1% Suspension Simbrinza Unknown 1-0.2% Suspension Biotin 1 by mouth daily Unknown Irbesartan 1 by mouth daily Unknown 75mg Tablets Pregabalin 1 by mouth three Unknown 50mg Capsules times per day Symbicort Unknown 160-4.5mcg/Act Aerosol Warfarin Sodium 1 by mouth one Unknown 5mg Tablets time per day as directed Albuterol Sulfate Via nebulizer 4 Unknown times per day Lisinopril 1 by mouth every Unknown 10mg Tablets day Diltiazem HCL ER Coated 1 by mouth one Unknown Beads time per day 240mg Caps ER 24HR Atorvastatin Calcium 1 by mouth every Unknown 40mg day Tablets Myrbetriq 1 by mouth every Unknown 50mg Tablets ER day 24HR Combivent Respimat 1 puff by mouth Unknown four times per 20-100mcg/Act Aerosol day Levothyroxine Sodium 1 by mouth every Unknown 75mcg day Tablets Nitrostat one sl q5min up Unknown 0.4mg Tablets Sub to 3 doses as needed Metoprolol Succinate ER 1 by mouth every 90tabs Jasper Sanchez. day DO Prince FACC 25mg Tablets ER 24HR Montelukast Sodium 1 by mouth every Unknown 10mg day Tablets Oxycodone-Acetaminophen 1 tablet by mouth Tyrone, three times per MD Bayron 5-325mg Tablets day Aspirin 1 by mouth every Unknown 81mg Tablets DR day Cyclobenzaprine HCL one by mouth two Unknown 10mg times a day as Tablets needed spasm Xanax one by mouth up 20tabs Miguel Parmar, 0.25mg Tablets to three times MD daily as needed for anxiety Sertraline HCL 2 po qd 30tabs Miguel Parmar, 100mg MD Tablets Medications Administered in Office Medication SIG Qnty Indications Ordering Provider Date Depomedrol 40MG Vi Allen M.D. 10/30/2018 Injection Depomedrol 40MG Tony Allison MD 07/31/2016 Injection Inj, Regadenoson, 0.1 MG Alex Elizabeth M.D. 04/16/2015 Injection Technetium TC 99M Tetrofosmin, Alex Elizabeth M.D. 04/16/2015 Per Unit Dose Up To 40 Millicuries Injection Depomedrol 80MG Tristen Bowens M.D. 05/24/2011 Injection Depomedrol 80MG Tristen Bowens M.D. 12/26/2010 Injection Immunizations Description No Information Available Vital Signs Date Vital Result Comment 10/15/2019 9:29am Height 66.25 inches 5'6.25" Weight 188.25 lb Heart Rate 94 /min BP Systolic Sitting 124 mmHg Lue large cuff BP Diastolic Sitting 68 mmHg Lue large cuff O2 % BldC Oximetry 96 % On 3L continuous via portable tank, nasal cannula BMI (Body Mass Index) 30.2 kg/m2 04/10/2019 9:01am Height 66.25 inches 5'6.25" Weight 178.00 lb Heart Rate 74 /min BP Systolic Sitting 138 mmHg Lue reg cuff BP Diastolic Sitting 90 mmHg Lue reg cuff Respiratory Rate 16 /min O2 % BldC Oximetry 95 % On 3L continuous via nasal canula BMI (Body Mass Index) 28.5 kg/m2 Neck Circumference in inches 15.5 Results Description No Information Available Procedures Description No Information Available Medical Devices Description No Information Available Encounters Type Date Location Provider Dx Diagnosis Office Visit 07/07/2019 [facility] Leena Faustin MD J18.9 Pneumonia, 9:24a Assoc,pc unspecified Hospitalists organism J44.0 Chr obstructive pulmon disease with (acute) lower resp infct I48.91 Unspecified atrial fibrillation A41.9 Sepsis, unspecified organism I11.0 Hypertensive heart disease with heart failure I50.9 Heart failure, unspecified Office Visit 07/06/2019 9:24a [facility] Viral J18.9 Pneumonia, Assoc,pc Yanira Mcbride unspecified Hospitalists organism J44.0 Chr obstructive pulmon disease with (acute) lower resp infct J96.11 Chronic respiratory failure with hypoxia I48.91 Unspecified atrial fibrillation I11.0 Hypertensive heart disease with heart failure I50.30 Unspecified diastolic (congestive) heart failure Office Visit 07/05/2019 9:23a [facility] Suzie J18.9 Pneumonia, Assoc,gail Barlow M.D. unspecified Hospitalists organism J96.11 Chronic respiratory failure with hypoxia J44.0 Chr obstructive pulmon disease with (acute) lower resp infct Office Visit 07/04/2019 [facility] Josefina LeonardoSupaSharon, J18.9 Pneumonia, 9:23a Assoc,pc AUTO OVERHAULER unspecified Hospitalists organism J44.0 Chr obstructive pulmon disease with (acute) lower resp infct I10 Essential (primary) hypertension I50.9 Heart failure, unspecified Office Visit 05/07/2019 9:26a [facility] J18.9 Pneumonia, Assoc,gail Hankins MD unspecified Hospitalists organism K57.92 Dvtrcli of intest, part unsp, w/o perf or abscess w/o bleed I10 Essential (primary) hypertension Office Visit 05/06/2019 9:25a [facility] J18.9 Pneumonia, Assoc,gail Hankins MD unspecified Hospitalists organism I48.91 Unspecified atrial fibrillation K57.92 Dvtrcli of intest, part unsp, w/o perf or abscess w/o bleed I10 Essential (primary) hypertension Office Visit 05/05/2019 [facility] J96.21 Acute and chronic 9:24a gail Abraham MD respiratory Hospitalists failure with hypoxia K57.92 Dvtrcli of intest, part unsp, w/o perf or abscess w/o bleed J18.9 Pneumonia, unspecified organism I48.91 Unspecified atrial fibrillation Office Visit 05/04/2019 [facility]13 Pneumonia due to 9:23a gail Abraham MD Streptococcus Hospitalists pneumoniae K57.92 Dvtrcli of intest, part unsp, w/o perf or abscess w/o bleed I48.91 Unspecified atrial fibrillation Office Visit 05/03/2019 [place] [address] Pneumonia due to 9:23a gail Abraham MD Streptococcus Hospitalists pneumoniae K57.92 Dvtrcli of intest, part unsp, w/o perf or abscess w/o bleed Office Visit 05/02/2019 [facility] J96.01 Acute respiratory 9:21a Assoc,gail Loredo, AUTO OVERHAULER failure with Hospitalists hypoxia A41.9 Sepsis, unspecified organism J18.1 Lobar pneumonia, unspecified organism J44.0 Chr obstructive pulmon disease with (acute) lower resp infct Assessments Date Code Description Provider 10/15/2019 J44.9 Chronic obstructive pulmonary disease, Taye Felix MD unspecified 10/15/2019 G47.30 Sleep apnea, unspecified Taye Felix MD 07/07/2019 J18.9 Pneumonia, unspecified organism Leena Faustin MD 07/07/2019 J44.0 Chronic obstructive pulmonary disease with Leena Faustin MD (acute) lower respiratory infection 07/07/2019 I48.91 Unspecified atrial fibrillation Leena Faustin MD 07/07/2019 A41.9 Sepsis, unspecified organism Leena Faustin MD 07/07/2019 I11.0 Hypertensive heart disease with heart failure Leena Faustin MD 07/07/2019 I50.9 Heart failure, unspecified Leena Faustin MD 07/06/2019 J18.9 Pneumonia, unspecified organism Viral Mcbride M.D. 07/06/2019 J44.0 Chronic obstructive pulmonary disease with Viral Mcbride M.D. (acute) lower respiratory infection 07/06/2019 J96.11 Chronic respiratory failure with hypoxia Viral Mcbride M.D. 07/06/2019 I48.91 Unspecified atrial fibrillation Viral Mcbride M.D. 07/06/2019 I11.0 Hypertensive heart disease with heart failure Viral Mcbride M.D. 07/06/2019 I50.30 Unspecified diastolic (congestive) heart Viral Mcbride M.D. failure 07/05/2019 J18.9 Pneumonia, unspecified organism Suzie Barlow M.D. 07/05/2019 J96.11 Chronic respiratory failure with hypoxia Suzie Barlow M.D. 07/05/2019 J44.0 Chronic obstructive pulmonary disease with Suzie Barlow M.D. (acute) lower respiratory infection 07/04/2019 J18.9 Pneumonia, unspecified organism Josefina Estrella, AUTO OVERHAULER 07/04/2019 J44.0 Chronic obstructive pulmonary disease with Josefina Estrella, WANG (acute) lower respiratory infection 07/04/2019 I10 Essential (primary) hypertension Josefina Estrella, WANG 07/04/2019 I50.9 Heart failure, unspecified Josefina Estrella, WANG 05/07/2019 J18.9 Pneumonia, unspecified organism Lexie Hankins MD 05/07/2019 K57.92 Dvtrcli of intest, part unsp, w/o perf or Lexie Hankins MD abscess w/o bleed 05/07/2019 I10 Essential (primary) hypertension Lexie Hankins MD 05/06/2019 J18.9 Pneumonia, unspecified organism Lexie Hankins MD 05/06/2019 I48.91 Unspecified atrial fibrillation Lexie Hankins MD 05/06/2019 K57.92 Dvtrcli of intest, part unsp, w/o perf or Lexie Hankins MD abscess w/o bleed 05/06/2019 I10 Essential (primary) hypertension Lexie Hankins MD 05/05/2019 J96.21 Acute and chronic respiratory failure with Lexie Hankins MD hypoxia 05/05/2019 K57.92 Dvtrcli of intest, part unsp, w/o perf or Lexie Hankins MD abscess w/o bleed 05/05/2019 J18.9 Pneumonia, unspecified organism Lexie Hankins MD 05/05/2019 I48.91 Unspecified atrial fibrillation Lexie Hankins MD 05/04/2019 J13 Pneumonia due to Streptococcus pneumoniae Haley Ovalle MD 05/04/2019 K57.92 Dvtrcli of intest, part unsp, w/o perf or Haley Ovalle MD abscess w/o bleed 05/04/2019 I48.91 Unspecified atrial fibrillation Haley Ovalle MD 05/03/2019 J13 Pneumonia due to Streptococcus pneumoniae Haley Ovalle MD 05/03/2019 K57.92 Dvtrcli of intest, part unsp, w/o perf or Haley Ovalle MD abscess w/o bleed 05/02/2019 J96.01 Acute respiratory failure with hypoxia Jessie Loredo, AUTO OVERHAULER 05/02/2019 A41.9 Sepsis, unspecified organism Jessie Loredo, AUTO OVERHAULER 05/02/2019 J18.1 Lobar pneumonia, unspecified organism Jessie Loredo, AUTO OVERHAULER 05/02/2019 J44.0 Chronic obstructive pulmon disease w acute Jessie Loredo , AUTO OVERHAULER lower resp infct Plan of Treatment 10/15/2019 - Taye Felix MDJ44.9 Chronic obstructive pulmonary disease, unspecifiedNew Xrays:CT Lung Screening-Low Dose, Ordered: 10/15/19Comments:The patient will get a low-dose CT chest in July 2020. The patient will continue Symbicort Combivent high flow inhaler. She does not think Spiriva has helped her. She is to continue home oxygen.She is to stay active.Follow up:3 months.G47.30 Sleep apnea, unspecifiedNew Orders:Sleep Study, Ordered: Comments:We will proceed with a home sleep study. She will be on her home oxygen during the sleep study. Functional Status Description No Information Available Mental Status Description No Information Available Referrals Description No Information Available
--- OUTSIDE RECORDS SUMMARY | 2019-11-03 19:15 | XMS REPORT | Continuity of Care Document ---
:1955 External Reference #:[id number] Author Name Zachariah Heller M.D. Address [address] [place] [address] Care Team Providers Name Role Phone Miguel Parmar M.D. - Family Medicine Care Team Information Crosscutter Donald Estrada O.D. - Belt And Link Shop Supervisor Care Team Information Crosscutter Problems Active Problems Provider Date Asthma Onset: Chronic obstructive lung disease Onset: Arthritis Onset: Atrial fibrillation and flutter Onset: Hypertensive disorder Onset: Cholesteatoma Onset: Presence of intraocular lens Zachariah Heller M.D. Onset: 10/02/2019 Pseudoexfoliation glaucoma Zachariah Heller M.D. Onset: 08/12/2019 Combined form of senile cataract Zachariah Heller M.D. Onset: 08/12/2019 Social History Type Date Description Comments Sex Unknown ETOH Use Denies alcohol use Tobacco Use Start: Unknown End: Patient is a former smoker Recreational Drug Use Denies Drug Use Smoking Status Reviewed: 10/02/19 Patient is a former smoker Allergies, Adverse [...] Acetate 1 drops right eye 5ml Zachariah Dacostamahad, 09/15/2019 1% three times a M.D. Suspension [...] Information Available Procedures Date Code Description Status 10/01/2019 63546 Cataract Surgery Complex Completed 09/15/2019 26088 Ophthalmic Biometry Completed 09/15/2019 78573 Ophthalmic Biometry Completed 09/15/2019 95287 Est Patient Intermediate Exam Completed 08/12/2019 40726 New Patient Comprehensive Exam Completed Medical Devices Description No Information Available Encounters Description No Information Available Assessments Date Code Description Provider 10/02/2019 H25.812 Combined forms of age-related cataract, Zachariah Heller M.D. 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 10/01/2019 H25.811 Combined forms of age-related cataract, Zachariah Heller M.D. right eye 10/01/2019 H40.1411 [...] Heller M.D. at Zachariah Heller MD, 10/09/2019 10:45 am - Zachariah Heller M.D. at Zachariah Heller MD, 10/08/2019 7:00 am - Zachariah Heller M.D. at Zachariah Heller MD, 2018 - Zachariah Heller M.D.H25.812 Combined forms of age-related cataract, left eyeComments:Smoking can increase the risk of developing or worsening any eye related disease, as well as affect your overall health. If you are a smoker , we strongly recommend that you quit.If you are not a smoker, we strongly recommend that you do not start. Dense cataract in the left eye. USE THE SIMBRINZA TWICE A DAY IN YOUR LEFT EYE STARTING WHEN YOU GET HOME FROM SURGERY AND USE UNTIL YOU STOP THE CIPROTHE SUNDAY AFTER SURGERYFollow up:For surgery. Please keep post op appointments as scheduled.H40.1434 Capsular glaucoma with pseudoexfoliation of lens, bilateral, indeterminate [id number] Presence of intraocular lensComments:The artifical lens implant in your right eye appears to be stable. Since this is the first day after surgery, your right eye is still dilated and the vision will still be slightly blurry. The dilation will go down over the next day or two. Continue taking your eye drops as directed on the surgical calendar. If you have any questions, please call our office. CONTINUE THE SIMBRINZA TWICE A DAY IN YOUR RIGHT EYE UNTIL YOU STOP THE CIPRO ON SUNDAY Functional Status Description No Information Available Mental Status Description No Information Available Referrals Description No Information Available
--- OUTSIDE RECORDS SUMMARY | 2019-11-03 19:15 | XMS REPORT | Continuity of Care Document ---
:1955 External Reference #:[id number] Author Name Taye Felix MD (transmitted by agent of provider Eileen Garzon) Address [address], [address] [place] [address] Care Team Providers Name Role Phone Miguel Parmar MD - Family Medicine Care Team Information Pitching Coach Kathleen Henson M.D. - Physician Care Team Information Pitching Coach Production Recorder Problems Active Problems Provider Date Cervical spondylosis [...] ER 1 by mouth every 90tabs Jasper SMarcia day DO Prince FACC 25mg Tablets ER [...] Location Provider Dx Diagnosis Office Visit 07/07/2019 [facility] Leena Faustin MD J18.9 Pneumonia, 9:24a Assoc,pc unspecified Hospitalists organism J44.0 Chr obstructive pulmon disease with (acute) lower resp infct I48.91 Unspecified atrial fibrillation A41.9 Sepsis, unspecified organism I11.0 Hypertensive heart disease with heart failure I50.9 Heart failure, unspecified Office Visit 07/06/2019 9:24a [facility] Viral J18.9 Pneumonia, Assoc,gail Mcbride M.D. unspecified Hospitalists organism J44.0 Chr obstructive pulmon disease with (acute) lower resp infct J96.11 Chronic respiratory failure with hypoxia I48.91 Unspecified atrial fibrillation I11.0 Hypertensive heart disease with heart failure I50.30 Unspecified diastolic (congestive) heart failure Office Visit 07/05/2019 9:23a [facility] Suzie J18.9 Pneumonia, Assoc,gail Barlow M.D. unspecified Hospitalists organism J96.11 Chronic respiratory failure with hypoxia J44.0 Chr obstructive pulmon disease with (acute) lower resp infct Office Visit 07/04/2019 [facility] Josefina Estrella, J18.9 Pneumonia, 9:23a Assoc,pc PAPER TWISTER TENDER unspecified Hospitalists organism J44.0 Chr obstructive pulmon disease with (acute) lower resp infct I10 Essential (primary) hypertension I50.9 Heart failure, unspecified Office Visit 05/07/2019 9:26a [facility] J18.9 Pneumonia, Assoc,gail Hankins MD unspecified Hospitalists organism K57.92 Dvtrcli of intest, part unsp, w/o perf or abscess w/o bleed I10 Essential (primary) hypertension Office Visit 05/06/2019 9:25a [facility] J18.9 Pneumonia, Assoc,gail Hankins MD unspecified Hospitalists organism I48.91 Unspecified atrial fibrillation K57.92 Dvtrcli of intest, part unsp, w/o perf or abscess w/o bleed I10 Essential (primary) hypertension Office Visit 05/05/2019 [facility] J96.21 Acute and chronic 9:24a gail Abraham MD respiratory Hospitalists failure with hypoxia K57.92 Dvtrcli of intest, part unsp, w/o perf or abscess w/o bleed J18.9 Pneumonia, unspecified organism I48.91 Unspecified atrial fibrillation Office Visit 05/04/2019 [facility]13 Pneumonia due to 9:23a Assoc,gail Ovalle MD Streptococcus Hospitalists pneumoniae K57.92 Dvtrcli of intest, part unsp, w/o perf or abscess w/o bleed I48.91 Unspecified atrial fibrillation Office Visit 05/03/2019 [place] [address] Pneumonia due to 9:23a Assgail knapp MD Streptococcus Hospitalists pneumoniae K57.92 Dvtrcli of intest, part unsp, w/o perf or abscess w/o bleed Office Visit 05/02/2019 [facility] J96.01 Acute respiratory 9:21a Assoc,pc [place], PAPER TWISTER TENDER failure with Hospitalists hypoxia A41.9 Sepsis, unspecified [...] 07/04/2019 J18.9 Pneumonia, unspecified organism Josefina Estrella, WANG 07/04/2019 J44.0 Chronic obstructive pulmonary disease with Josefina Estrella NP (acute) lower respiratory infection 07/04/2019 I10 Essential (primary) hypertension Josefina Estrella, WANG 07/04/2019 I50.9 Heart failure, unspecified Josefina Estrella NP 05/07/2019 J18.9 Pneumonia, unspecified organism Lexie Hankins [...] MD 05/03/2019 J13 Pneumonia due to Streptococcus emeka Ovalle MD 05/03/2019 K57.92 Dvtrcli of intest, part unsp, w/o perf or Haley Ovalle MD abscess w/o bleed 05/02/2019 J96.01 Acute respiratory failure with hypoxia Jessie [place]ton, PAPER TWISTER TENDER 05/02/2019 A41.9 Sepsis, unspecified organism Jessie Loredo, WANG 05/02/2019 J18.1 Lobar pneumonia, unspecified organism Jessie Loredo, WANG 05/02/2019 J44.0 Chronic obstructive pulmon disease w acute Jessie Loredo NP lower resp infct Plan of Treatment Future Appointment(s):11/04/2019 11:20 am - [facility] - Taye Felix MDJ44.9 Chronic obstructive pulmonary disease, unspecifiedNew Xrays:CT Lung Screening-Low Dose, Ordered: Comments:The patient will get a low-dose CT chest in July 2020. The patient will continue Symbicort Combivent high flow inhaler. She does not think Spiriva has helped her. She is to continue home oxygen.She is to stay active.Follow up:3 months.G47.30 Sleep apnea, unspecifiedNew Orders:Sleep Study , Ordered: 10/15/19Comments:We will proceed with a home sleep study. She will be on her home oxygen during the sleep study. Functional Status Description No Information Available Mental Status Description No Information Available Referrals Description No Information Available
--- OUTSIDE RECORDS SUMMARY | 2019-11-03 19:15 | XMS REPORT | Continuity of Care Document ---
:1955 External Reference #:[id number] Author Name Taye Felix MD (transmitted by agent of provider Eileen Garzon) Address [address], [address] [place] [address] Care Team Providers Name Role Phone Miguel Parmar MD - Family Medicine Care Team Information Bi Data Architect [phone] Kathleen Henson M.D. - Physician Care Team Information Bi Data Architect [phone] Home Health Attendant Problems Active Problems Provider Date Cervical spondylosis [...] Up To 40 Millicuries Injection Depomedrol 80MG Trsiten Bowens M.D. 05/24/2011 Injection Depomedrol 80MG Tristen [...] Location Provider Dx Diagnosis Office Visit 07/07/2019 [facility] Leena Faustin MD J18.9 Pneumonia, 9:24a Assoc,pc unspecified Hospitalists organism J44.0 Chr obstructive pulmon disease with (acute) lower resp infct I48.91 Unspecified atrial fibrillation A41.9 Sepsis, unspecified organism I11.0 Hypertensive heart disease with heart failure I50.9 Heart failure, unspecified Office Visit 07/06/2019 9:24a [facility] Viral J18.9 Pneumonia, Assoc,gail Mcbride M.D. unspecified Hospitalists organism J44.0 Chr obstructive pulmon disease with (acute) lower resp infct J96.11 Chronic respiratory failure with hypoxia I48.91 Unspecified atrial fibrillation I11.0 Hypertensive heart disease with heart failure I50.30 Unspecified diastolic (congestive) heart failure Office Visit 07/05/2019 9:23a [facility] Suzie J18.9 Pneumonia, Assoc,gail Barlow M.D. unspecified Hospitalists organism J96.11 Chronic respiratory failure with hypoxia J44.0 Chr obstructive pulmon disease with (acute) lower resp infct Office Visit 07/04/2019 [facility] Josefina Estrella, J18.9 Pneumonia, 9:23a Assoc,pc [facility] unspecified Hospitalists organism J44.0 Chr obstructive pulmon disease with (acute) lower resp infct I10 Essential (primary) hypertension I50.9 Heart failure, unspecified Office Visit 05/07/2019 9:26a [facility] J18.9 Pneumonia, Assoc,gail Hankins MD unspecified Hospitalists organism K57.92 Dvtrcli of intest, part unsp, w/o perf or abscess w/o bleed I10 Essential (primary) hypertension Office Visit 05/06/2019 9:25a [facility] J18.9 Pneumonia, Assoc,gail Hankins MD unspecified Hospitalists organism I48.91 Unspecified atrial fibrillation K57.92 Dvtrcli of intest, part unsp, w/o perf or abscess w/o bleed I10 Essential (primary) hypertension Office Visit 05/05/2019 [facility] J96.21 Acute and chronic 9:24a gail Abraham MD respiratory Hospitalists failure with hypoxia K57.92 Dvtrcli of intest, part unsp, w/o perf or abscess w/o bleed J18.9 Pneumonia, unspecified organism I48.91 Unspecified atrial fibrillation Office Visit 05/04/2019 [facility]13 Pneumonia due to 9:23a Assoc,gail Ovalle MD Streptococcus Hospitalists pneumoniae K57.92 Dvtrcli of intest, part unsp, w/o perf or abscess w/o bleed I48.91 Unspecified atrial fibrillation Office Visit 05/03/2019 [place] [address] Pneumonia due to 9:23a Assgail knapp MD Streptococcus Hospitalists pneumoniae K57.92 Dvtrcli of intest, part unsp, w/o perf or abscess w/o bleed Office Visit 05/02/2019 [facility] J96.01 Acute respiratory 9:21a Assoc,pc [place], [facility] failure with Hospitalists hypoxia A41.9 Sepsis, unspecified [...] Acute respiratory failure with hypoxia Jessie Touchton, F[facility] [employer]ER 05/02/2019 A41.9 Sepsis, unspecified organism Jessie Loredo, WANG 05/02/2019 J18.1 Lobar pneumonia, unspecified organism Jessie Loredo, WANG 05/02/2019 J44.0 Chronic obstructive pulmon disease w acute Jessie Loredo NP lower resp infct Plan of Treatment Future Appointment(s):11/04/2019 11:20 am - Jasper Morrison DO [facility] at [facility]10/15/2019 - Taye Felix MDJ44.9 Chronic obstructive pulmonary [...]
--- OUTSIDE RECORDS SUMMARY | 2019-11-03 19:15 | XMS REPORT | Continuity of Care Document ---
:1955 External Reference #:[id number] Author Name Zachariah Heller M.D. Address [address] [place] [address] Care Team Providers Name Role Phone Miguel Parmar M.D. - Family Medicine Care Team Information American Board Certified Orthotist Donald Estrada O.D. - Electrical Service Technician Care Team Information American Board Certified Orthotist Problems Active Problems Provider Date Asthma Onset: Chronic obstructive lung disease Onset: Arthritis Onset: Atrial fibrillation and flutter Onset: Hypertensive disorder Onset: Cholesteatoma Onset: Pseudoexfoliation glaucoma Zachariah Heller M.D. Onset: 08/12/2019 Combined form of senile cataract Zachariah Heller M.D. Onset: 08/12/2019 Social History Type Date Description Comments Sex Unknown ETOH Use Denies alcohol use Tobacco Use Start: Unknown End: Patient is a former smoker Recreational Drug Use Denies Drug Use Smoking Status Reviewed: 09/15/19 Patient is a former smoker Allergies, Adverse Reactions, Alerts Active Allergies Reaction Severity Comments Date NKDA 09/15/2019 Seasonal Moderate 08/12/2019 Medications Active Medications SIG Qnty Indications Ordering Date Provider Ciprofloxacin HCL instill one drop 5ml Zcahariah Heller, 09/15/2019 0.3% in the right eye M.D. Solution three times a day, start the day before surgery Ketorolac Tromethamine use one drop in 10ml Zachariah Heller, 09/15/2019 0.5% the right eye M.D. Solution three times a day, start the day before surgery Prednisolone Acetate 1 drops right eye 5ml Zachariah Heller 09/15/2019 1% three times a M.D. Suspension day. taper as directed Simbrinza 1 drop right eye 24ml Zachariah Heller, 09/15/2019 1-0.2% Suspension twice a day M.D. [...] Information Available Procedures Date Code Description Status 08/12/2019 96132 New Patient Comprehensive Exam Completed Medical Devices Description No Information Available Encounters Description No Information Available Assessments Date Code Description Provider 09/15/2019 H25.811 Combined forms of age-related cataract, [...] Zachariah Heller M.D. at [facility], [id number] 10:45 am - Zachariah Heller M.D. at [facility], 10/01/2019 7:00 am - Zachariah Heller M.D. at [facility], [facility]11/15/2018 - Zachariah Heller M.D.H25.811 Combined forms of age-related cataract, right eyeComments:Smoking can increase the risk of developing or worsening any eye related disease, as well as affect your overall health. If you are a smoker, we strongly recommend that you quit.If you are not a smoker, we strongly recommend that you do not start. Dense cataract in the right eye.Follow up:For surgery. Please keep post op appointments as scheduled.DFE/IOPH40.1434 Capsular glaucoma with pseudoexfoliation of lens, bilateral, indeterminate goqedN24.812 Combined forms of age-related cataract, left eye Functional Status Description No Information Available Mental Status Description No Information Available Referrals Description No Information Available
--- NOTE | 2019-11-03 20:37 | ED ---
Lower Extremity - HPI Summary HPI Summary: This patient is a 64 year old female with a history of COPD presenting to [facility] with a chief complaint of bilateral burning knee pain since one week ago. She states she was carrying a bag over her shoulder when she was getting ready to go out and felt a burning sensation in her knees radiating to her thighs. Her daughter states she was admitted 4-5 times for pneumonia last year. The patient is on Warfarin and has her doses changed often. Patient is on home O2 for her COPD. Patient reports mild cough, fatigue, and body aches. She rates her pain 4/ 10 in severity. She has a Hx of stent placement and AFIB. - History of Current Complaint Chief Complaint: EDGeneral Stated Complaint: L KNEE PAIN PER PT Time Seen by Provider: 11/03/19 20:31 Hx Obtained From: Patient, Family/Collateral Analyst Onset of Pain: Days Onset/Duration: Days Pain Intensity: 4 Pain Scale Used: 0-10 Numeric - Allergies/Home Medications Allergies/Adverse Reactions: Allergies Allergy/AdvReac Type Severity Reaction Status Date / Time gabapentin AdvReac Severe Memory Verified 11/03/19 18:56 Issues PMH/Surg Hx/FS Hx/Imm Hx Endocrine/Hematology History: Reports: Hx Anticoagulant Therapy, Hx Thyroid Disease - Hypothyroid, Hx Anemia Denies: Hx Diabetes Cardiovascular History: Reports: Hx Angina, Hx Angioplasty, Hx Coronary Artery Disease, Hx Deep Vein Thrombosis, Hx Hypercholesterolemia, Hx Hypertension, Hx Peripheral Vascular Disease, Other Cardiovascular Problems/Disorders - VASCULAR DISEASE ON LEGS AND ABD (PVD) Denies: Hx Pacemaker/ICD Respiratory History: Reports: Hx Asthma, Hx Chronic Obstructive Pulmonary Disease (COPD) - pt reports on 2L O2 when laying down at home, Hx Pneumonia - 2017, Hx Seasonal Allergies, Other Respiratory Problems/Disorders - COLLAPSED LUNG 30 YRS AGO AND COPD GI History: Reports: Hx Diverticulosis - 09/29/18, Hx Gastroesophageal Reflux Disease, Hx Hiatal Hernia - with bowel loop, Other GI Disorders - bowel necrosis and surgery 4 YEARS AGO Denies: Hx Crohn's Disease, Hx Gall Bladder Disease, Hx Gastrointestinal Bleed, Hx Jaundice, Hx Obstructive Bowel, Hx Pyloric Stenosis History: Reports: Hx Kidney Stones - 09/29/18, Other Problems/Disorders - frequent UTI Musculoskeletal History: Reports: Hx Arthritis, Hx Back Problems - chronic, Hx Orthopedic Injury, Other Musculoskeletal History - arthritis, degenerative disk in neck, R SHOULDER PAIN Sensory History: Reports: Hx Cataracts, Hx Contacts or Glasses - GLASSES, Hx Hearing Problem - [place] Denies: Hx Eye Injury, Hx Eye Prosthesis, Hx Glaucoma, Hx Legally Blind, Hx Macular Degeneration, Hx Vision Problem, Hx Deafness, Hx Hearing Aid Opthamlomology History: Reports: Hx Cataracts, Hx Contacts or Glasses - GLASSES Denies: Hx Eye Injury, Hx Eye Prosthesis, Hx Glaucoma, Hx Legally Blind, Hx Macular Degeneration, Hx Vision Problem Neurological History: Reports: Other Neuro Impairments/Disorders - tingling down left arm from arthritis Psychiatric History: Reports: Hx Anxiety, Hx Depression, Hx Panic Disorder - Cancer History Cancer Type, Location and Year: None reported Hx Chemotherapy: No Hx Radiation Therapy: No Hx Palliative Cancer Treatment: No - Surgical History Surgery Procedure, Year, and Place: LT LEG SURGERY 2006, RT SHOULDER [facility] right femoral [facility], 10/2013, [place], recent bowel resection December 2013, [place] [facility] [place] Rep[place] Hx Anesthesia Reactions: No - Immunization History Date of Tetanus Vaccine: Unkown Infectious Disease History: No Infectious Disease History: Reports: Hx Tuberculosis - 10 YEARS, History Other Infectious Disease - Klebsiella P. in urine Denies: Hx Clostridium Difficile, Hx Hepatitis, Hx of Known/Suspected MRSA, Hx Shingles, Hx Known/Suspected VRE, Hx Known/Suspected VRSA, Traveled Outside the [place] in Last 30 Days - Family History Known Family History: Negative: Hypertension, Diabetes - Social History Alcohol Use: None Hx Substance Use: Yes Substance Use Type: Reports: None Substance Use Comment - Amount & Last Used: have (+) for opiod and benzodiazepine. Hx Tobacco Use: Yes Smoking Status (MU): Former Smoker Type: Cigarettes Amount Used/How Often: 2 ppd Length of Time of Smoking/Using Tobacco: 40 Have You Smoked in the Last Year: No Review of Systems Positive: Fatigue, Other - Body aches Positive: Cough Positive: Other - Knee pain/burning All Other Systems Reviewed And Are Negative: Yes Physical Exam - Summary Physical Exam Summary: Appearance: Well-appearing, Well-nourished, lying in bed comfortably Skin: Warm, dry, no obvious rash Eyes: sclera anicteric, no conjunctival pallor ENT: mucous membranes moist, pharynx appears normal Neck: Supple, nontender Respiratory: Clear to auscultation, no signs of respiratory distress Cardiovascular: Normal S1, S2. No murmurs. Normal distal pulses in tibial and radial bilaterally. Abdomen: Soft, nontender, normal active bowel sounds present Musculoskeletal: Normal, Strength/ROM Intact Neurological: A&Ox3, awake and alert, mentation is normal, speech is fluent and appropriate Psychiatric: affect is normal, does not appear anxious or depressed Triage Information Reviewed: Yes Vital Signs On Initial Exam: Initial Vitals Temp Pulse Resp BP Pulse Ox 98.6 F 77 18 140/77 94 11/03/19 18:53 11/03/19 18:53 11/03/19 18:53 11/03/19 18:53 11/03/19 18:53 Vital Signs Reviewed: Yes Procedures - Sedation Patient Received Moderate/Deep Sedation with Procedure: No Diagnostics - Vital Signs Vital Signs Temp Pulse Resp BP Pulse Ox 11/03/19 18:53 98.6 F 77 18 140/77 94 - Laboratory Result Diagrams: 11/03/19 20:58 11/03/19 21:47 Lab Statement: Any lab studies that have been ordered have been reviewed, and results considered in the medical decision making process. - Radiology CXR Radiology Interpretation Completed By: ED Physician Summary of Radiographic Findings: Stable small left pleural effusion, otherwise no signs of consolidation. Pending official radiologist report. Lower Extremity Course/Dx - Course Course Of Treatment: This patient is a 64 year old female with a history of COPD presenting to [facility] with a chief complaint of bilateral burning knee pain since one week ago. Labs reveal RBC 3.68 L, Hgb 9.1 L, Hct 27 L, MCV 74 L, MCH 25 L, RDW 17 H, Absolute Monos 1.2 H, Sodium 129 L, Potassium 2.9 L, Chloride 87 L, Carbon Dioxide 34 H, Glucose 121 H, AST 58 H. CXR reveals stable small left pleural effusion. Plan for discharge was discussed with the patient and she was agreeable with this plan. - Diagnoses Provider Diagnoses: Anemia, Muscle weakness, Hypokalemia Discharge ED - Sign-Out/Discharge Documenting (check all that apply): Patient Departure - Discharge - Discharge Plan Condition: Good Disposition: HOME Patient Education Materials: Hypokalemia (ED), Weakness (ED), Anemia (ED) Referrals: Miguel Parmar MD [Primary Care Provider] - 3 Days Additional Instructions: Your potassium level was low today, perhaps low enough to contribute to your weakness. Also your blood counts were a little lower than you are typically, which could also contribute to weakness (though not low enough to necessitate a transfusion). The rest of the lab work, the flu test, and the chest x ray all looked ok. We've given you a dose of potassium tonight that will bump up the level, but you should try to get some increased potassium in your diet over the next few days and have your doctor recheck the electrolytes and hemoglobin level. - Billing Disposition and Condition Condition: GOOD Disposition: Home - Attestation Statements Document Initiated by Brandi: Yes Documenting Sanaibkwasi: Viral Fu Provider For Whom Brandi is Documenting (Include Credential): Helio Mcgee MD Scribe Attestation: Viral Slade, scribed for Helio Mcgee MD on 11/04/19 at 0528. Scribe Documentation Reviewed: Yes Provider Attestation: The documentation as recorded by the Viral mcduffie accurately reflects the service I personally performed and the decisions made by me, Helio Mcgee MD Status of Scribe Document: Viewed
[2019-11-03 21:24] LABS: Albumin/Globulin Ratio 1.2 (1-3); BUN/Creatinine Ratio 15.1 (8-20); Calcium 9.1 mg/dL (8.6-10.3); EGFR Non-African American 60.3 (>60); Globulin 3.3 g/dL (2-4); Potassium 2.8 mmol/L (3.5-5.0); Total Bilirubin 0.4 mg/dL (0.2-1.0); Total Protein 7.3 g/dL (6.4-8.9)
[2019-11-03 21:25] LABS: Troponin I 0.01 ng/mL (<0.03)
[2019-11-03 21:37] LABS: Hematocrit 27 % (35-47); Hemoglobin 9.1 g/dL (12.0-16.0); Mean Corpuscular HGB Conc 33 g/dL (31-36); Mean Corpuscular Hemoglobin 25 pg (27-31); Mean Corpuscular Volume 74 fL (80-97); Mean Platelet Volume 8.3 fL (7.4-10.4); Platelet Count 329 10^3/uL (150-450); Red Blood Count 3.68 10^6 /uL (3.70-4.87); Red Cell Distribution Width 17 % (10-15); White Blood Count 9.9 10^3/uL (3.5-10.8)
[2019-11-03 21:38] LABS: TSH (Thyroid Stimulating Horm) 2.32 mcIU/mL (0.34-5.60)
[2019-11-03 21:56] LABS: ABS Eosinophils 0.2 10^3/ul (0-0.6); ABS Lymphocytes 1.5 10^3/ul (1.0-4.8); ABS Monocytes 1.2 10^3/ul (0-0.8); Eosinophil % 2.1 %; Lymphocyte % 15.4 %
[2019-11-03 21:57] LABS: Microcytosis 1+; Polychromasia 1+
[2019-11-03 22:13] LABS: Magnesium 2.1 mg/dL (1.9-2.7); Potassium Redraw 2.9 mmol/L (3.5-5.0)
[2019-11-03 22:14] LABS: Influenza A Molecular NEGATIVE (Negative); Influenza B Molecular NEGATIVE (Negative)
[2019-11-03] MEDS ORDERED: Potassium Chlor TAB* 20 MEQ TAB.ER PO ONE (23:04)
[2019-11-04 00:05] VITALS: BP 132/66
== END 2019-11-04 | disposition home or self-care (01) ==
LOC: ED 18:42
DX: D64.9 Anemia, unspecified (principal); M62.81 Muscle weakness (generalized); R05 Cough; E87.6 Hypokalemia; R53.83 Other fatigue; Z87.891 Personal history of nicotine dependence; Z79.01 Long term (current) use of anticoagulants; E03.9 Hypothyroidism, unspecified; Z86.718 Personal history of other venous thrombosis and embolism; E78.00 Pure hypercholesterolemia, unspecified; F32.9 Major depressive disorder, single episode, unspecified
CPT/HCPCS: 36415; 71046; 80053; 83605; 83735; 84443; 84484; 85025; 93005; 99284; A9270-GY

== ENCOUNTER 2020-05-29 10:10 | Inpatient (IN) ==
[2020-05-29 11:02] LABS: ABS Eosinophils 0.2 10^3/ul (0-0.6); ABS Lymphocytes 0.7 10^3/ul (1.0-4.8); ABS Monocytes 1.2 10^3/ul (0-0.8); ABS Neutrophils 12.8 10^3/ul (1.5-7.7); Eosinophil % 1.2 %; Hematocrit 31 % (35-47); Hemoglobin 9.3 g/dL (12.0-16.0); Lymphocyte % 4.7 %; Mean Corpuscular HGB Conc 30 g/dL (31-36); Mean Corpuscular Hemoglobin 21 pg (27-31); Mean Corpuscular Volume 69 fL (80-97); Mean Platelet Volume 8.3 fL (7.4-10.4); Platelet Count 261 10^3/uL (150-450); Red Blood Count 4.47 10^6 /uL (3.70-4.87); Red Cell Distribution Width 19 % (10-15); White Blood Count 14.9 10^3/uL (3.5-10.8)
[2020-05-29 11:12] LABS: ALT 17 U/L (7-52); AST 21 U/L (13-39); Albumin 4.4 g/dL (3.2-5.2); Albumin/Globulin Ratio 1.3 (1-3); Alkaline Phosphatase 61 U/L (34-104); Anion Gap 5 mmol/L (2-11); BUN/Creatinine Ratio 19.1 (8-20); Blood Urea Nitrogen 17 mg/dL (6-24); CO2 Carbon Dioxide 35 mmol/L (22-32); Calcium 9.3 mg/dL (8.6-10.3); Chloride 97 mmol/L (101-111); Creatine Kinase 128 U/L (10-223); EGFR African American 76.5 (>60); EGFR Non-African American 63.3 (>60); Globulin 3.3 g/dL (2-4); Glucose 94 mg/dL (70-100); Potassium 3.5 mmol/L (3.5-5.0); Sodium 137 mmol/L (135-145); Total Protein 7.7 g/dL (6.4-8.9); Troponin I 0.01 ng/mL (<0.03)
[2020-05-29 11:20] LABS: Microcytosis 3+
[2020-05-29 11:40] LABS: Acetaminophen < 15 mcg/mL; Salicylate < 2.50 mg/dL (<30)
[2020-05-29 11:54] LABS: TSH Ultra Thyroid Stim Horm 1.15 mcIU/mL (0.34-5.60)
[2020-05-29 12:37] LABS: Alcohol, S < 10 mg/dL (<10)
[2020-05-29 13:18] LABS: C Reactive Protein 9.64 mg/L (<8.01)
[2020-05-29 13:20] LABS: Urine Appearance Cloudy; Urine Bilirubin Negative (Negative); Urine Blood Negative (Negative); Urine Color Yellow; Urine Glucose Negative (Negative); Urine Ketones Negative (Negative); Urine Nitrite Negative (Negative); Urine Protein Negative (Negative); Urine Specific Gravity 1.012 (1.010-1.030); Urine Urobilinogen Negative (Negative)
[2020-05-29 13:37] LABS: INR 2.08 (0.82-1.09)
[2020-05-29] MEDS ORDERED: Al Hydrox/Mg Hydrox/Simet LIQ 30 ML UDC PO PRN (14:51)
[2020-05-29] MEDS ORDERED: Albuterol HFA INHALER 8 gm MDI INH PRN (14:59)
[2020-05-29 15:31] LABS: % Iron Saturation 4 % (15-55); Iron 24 ug/dL (50-212); Total Iron Binding Capacity 571 mcg/dL (250-450); Transferrin 408 mg/dL (203-362); Unsaturated Iron Binding < 556 ug/dL
[2020-05-29 15:51] LABS: Ferritin 6.5 ng/mL (11-307)
[2020-05-29] MEDS: NS 0.9% 1000 ml BAG 1,000 ML IV SCH (17:51)
[2020-05-29] MEDS: cefTRIAXone 1 gm/50 mL NS BAG 1 GM/50 ML BAG IVPB SCH (17:51)
[2020-05-29] MEDS: Mometasone/Formoter 200/5 MDI INH SCH (19:15)
[2020-05-29] MEDS: Albuterol/Ipratropium NEB.SOL (2.5/0.5 MG) 3 ML NEB.SOLN INH SCH (19:15)
[2020-05-29] MEDS: Azithromycin 500 mg/250 ml NS 500 MG/250 ML BAG IVPB SCH (20:19)
[2020-05-30] MEDS: Albuterol/Ipratropium NEB.SOL (2.5/0.5 MG) 3 ML NEB.SOLN INH SCH ×4 (04:02→19:32)
[2020-05-30] MEDS: Mometasone/Formoter 200/5 MDI INH SCH ×2 (07:28→19:33)
[2020-05-30] MEDS: Aspirin EC 81 mg TAB.EC (enteric coated) PO SCH (08:28)
[2020-05-30] MEDS: MIRABEGRON 50 MG PO SCH (08:37)
[2020-05-30 08:48] LABS: ABS Eosinophils 0.2 10^3/ul (0-0.6); ABS Lymphocytes 1.4 10^3/ul (1.0-4.8); ABS Monocytes 1.5 10^3/ul (0-0.8); ABS Neutrophils 16.4 10^3/ul (1.5-7.7); Hematocrit 27 % (35-47); Hemoglobin 8.3 g/dL (12.0-16.0); Lymphocyte % 7.3 %; Mean Corpuscular HGB Conc 31 g/dL (31-36); Mean Corpuscular Hemoglobin 21 pg (27-31); Mean Corpuscular Volume 68 fL (80-97); Mean Platelet Volume 8.7 fL (7.4-10.4); Platelet Count 231 10^3/uL (150-450); Red Cell Distribution Width 19 % (10-15); White Blood Count 19.5 10^3/uL (3.5-10.8)
[2020-05-30 08:50] LABS: INR 2.55 (0.82-1.09)
[2020-05-30 08:58] LABS: BUN/Creatinine Ratio 16.9 (8-20); Calcium 8.9 mg/dL (8.6-10.3); EGFR Non-African American 90.9 (>60); Potassium 3.5 mmol/L (3.5-5.0)
[2020-05-30] MEDS: NS 0.9% 1000 ml BAG 1,000 ML IV SCH (08:58)
[2020-05-30] MEDS: cefTRIAXone 1 gm/50 mL NS BAG 1 GM/50 ML BAG IVPB SCH (15:42)
[2020-05-30] MEDS: Azithromycin 500 mg/250 ml NS 500 MG/250 ML BAG IVPB SCH (20:04)
[2020-05-31] MEDS: Albuterol/Ipratropium NEB.SOL (2.5/0.5 MG) 3 ML NEB.SOLN INH SCH ×4 (01:30→19:35)
[2020-05-31 07:44] LABS: BUN/Creatinine Ratio 15.9 (8-20); Calcium 8.7 mg/dL (8.6-10.3); EGFR African American 114.1 (>60); EGFR Non-African American 94.3 (>60); Potassium 3.8 mmol/L (3.5-5.0)
[2020-05-31 07:54] LABS: ABS Lymphocytes 0.9 10^3/ul (1.0-4.8); ABS Monocytes 0.7 10^3/ul (0-0.8); Hematocrit 28 % (35-47); Hemoglobin 8.5 g/dL (12.0-16.0); Lymphocyte % 6.9 %; Mean Corpuscular HGB Conc 31 g/dL (31-36); Mean Corpuscular Hemoglobin 21 pg (27-31); Mean Corpuscular Volume 68 fL (80-97); Mean Platelet Volume 9.2 fL (7.4-10.4); Platelet Count 229 10^3/uL (150-450); Red Blood Count 4.08 10^6 /uL (3.70-4.87); Red Cell Distribution Width 20 % (10-15); White Blood Count 12.5 10^3/uL (3.5-10.8)
[2020-05-31 07:59] LABS: INR 2.84 (0.82-1.09)
[2020-05-31] MEDS: Mometasone/Formoter 200/5 MDI INH SCH ×2 (08:08→19:36)
[2020-05-31] MEDS: MIRABEGRON 50 MG PO SCH (09:00)
[2020-05-31] MEDS: Aspirin EC 81 mg TAB.EC (enteric coated) PO SCH (09:01)
[2020-05-31] MEDS: oxyCODONE/Acetamin 5/325 mg TAB PO PRN ×3 (09:15→23:36)
[2020-05-31] MEDS: cefTRIAXone 1 gm/50 mL NS BAG 1 GM/50 ML BAG IVPB SCH (16:16)
[2020-05-31] MEDS: Azithromycin 500 mg/250 ml NS 500 MG/250 ML BAG IVPB SCH (21:30)
[2020-06-01] MEDS: Albuterol/Ipratropium NEB.SOL (2.5/0.5 MG) 3 ML NEB.SOLN INH SCH (02:20)
[2020-06-01 06:25] LABS: Hematocrit 26 % (35-47); Hemoglobin 7.9 g/dL (12.0-16.0); Mean Corpuscular HGB Conc 30 g/dL (31-36); Mean Corpuscular Hemoglobin 21 pg (27-31); Mean Corpuscular Volume 69 fL (80-97); Mean Platelet Volume 9.2 fL (7.4-10.4); Platelet Count 220 10^3/uL (150-450); Red Blood Count 3.79 10^6 /uL (3.70-4.87); Red Cell Distribution Width 20 % (10-15); White Blood Count 11.7 10^3/uL (3.5-10.8)
[2020-06-01 06:39] LABS: BUN/Creatinine Ratio 16.2 (8-20); Calcium 8.5 mg/dL (8.6-10.3); EGFR African American 104.4 (>60); EGFR Non-African American 86.3 (>60); Potassium 3.5 mmol/L (3.5-5.0)
[2020-06-01 06:41] LABS: INR 4.96 (0.82-1.09)
[2020-06-01] MEDS: Mometasone/Formoter 200/5 MDI INH SCH (07:51)
[2020-06-01] MEDS: oxyCODONE/Acetamin 5/325 mg TAB PO PRN (08:25)
[2020-06-01] MEDS: MIRABEGRON 50 MG PO SCH (08:26)
[2020-06-01] MEDS: Aspirin EC 81 mg TAB.EC (enteric coated) PO SCH (08:26)
[2020-06-01] MEDS ORDERED: Tiotropium Brom/Olodaterol MDI INH SCH (09:00)
[2020-06-01] MEDS ORDERED: Potassium Chlor 20 meq TAB.ER PO ONE (09:31)
[2020-06-01 12:15] VITALS: BP 139/71
== END 2020-06-01 16:15 | disposition home or self-care (01) | DRG 91 ==
LOC: ED 10:10 → MED 14:51
PROVIDERS: ADMIT Internal Medicine; ATTEND Internal Medicine